=== PATIENT | female | born 1940 | race Caucasian/White ===

== ENCOUNTER 2020-10-01 14:29 | Emergency (ER) | payer OTHER, SELFPAY ==
--- NOTE | ~2020-10-01 | XR_ITS ---
EXAMINATION: XR chest 1V portable DATE: 10/01/2020 15:06 INDICATION: Chest tightness, shortness of breath and fever TECHNIQUE: frontal view of the chest was obtained. COMPARISON: None FINDINGS: Subtle regions of peripheral groundglass opacity in the right mid and left mid and lower lung zones. No pleural effusion or pneumothorax. The cardiomediastinal silhouette is normal. Moderate degenerativ e skeletal changes in the spine and bilateral shoulders. IMPRESSION: 1. A few subtle patchy groundglass opacities at the lateral aspect of the bilateral mid and lower brayan g zones which could represent pneumonia or atelectasis. Reviewed, dictated and finalized at location A. SS LIAISON IMPRESSION: 1. A few subtle patchy groundglass opacities at the lateral aspect of the bilat eral mid and lower lung zones which could represent pneumonia or atelectasis.
--- NOTE | 2020-10-01 14:49 | ECG_ITS ---
Measurements Intervals Kathleen Rate: 78 P: 51 NH: 137 QRS: -15 QRSD: 85 T: 12 QT: 409 QTc: 466 Interpretive Statements SINUS RHYTHM POSSIBLE LEFT ATRIAL ENLARGEMENT DELAYED PRECORDIAL R/S TRANSITION BASELINE ARTIFACT- II, III, AVF BORDERLINE ECG Electronically Signed On 10-01-2020 15:12:24 CONTINUOUS PROCESS MACHINE OPERATOR by Facundo Sam D.O.
[2020-10-01 14:53] VITALS: BP 124/102; PULSE 81; RESP 18; TEMP 35.9; O2SAT 95
[2020-10-01 15:13] LABS: Basophils Percent Auto 0.4 % (0.2-1.2); Eosinophils Absolute Auto 0.1 K/mm3 (0-0.3); Eosinophils Percent Auto 0.6 % (0-4.4); Hematocrit 34.4 % (37.0-47.0); Hemoglobin 11.3 g/dL (12.0-15.0); Immature Granulocyte Absolute 0.12 K/mm3 (0.00-0.031); Immature Granulocyte Percent A 1.5 % (0-0.5); Lymphocytes Absolute Auto 1.44 K/mm3 (0.9-3.2); Lymphocytes Percent Auto 18.4 % (18.3-44.2); Mean Corpuscular HGB Conc 32.8 g/dl (32-36); Mean Corpuscular Hemoglobin 30.4 pg (26-34); Mean Corpuscular Volume 92.5 fl (80-100); Mean Platelet Volume 10.9 fl (7.4-10.4); Monocytes Absolute Auto 0.8 K/mm3 (0.1-0.6); Monocytes Percent Auto 10.3 % (2.6-8.5); Neutrophils Absolute Auto 5.4 K/mm3 (1.3-6.7); Neutrophils Percent Auto 68.8 % (45.5-73.1); Platelet Count Result 285 k/mm3 (150-375); Red Blood Count 3.72 M/mm3 (4.2-5.4); Red Cell Distribution Width 13.2 % (11.5-14.5); White Blood Count 7.8 K/mm3 (4.5-10.0)
[2020-10-01 15:29] LABS: Potassium 3.9 mmol/L (3.4-5.0)
[2020-10-01 15:32] LABS: Anion Gap 10 mmol/L (8-16); Blood Urea Nitrogen 20 mg/dL (7-17); Calcium 7.6 mg/dL (8.4-10.2); Carbon Dioxide 20 mmol/L (22-30); Chloride 105 mmol/L (98-107); Estimated CRCL calculation 38 ml/min; Estimated Glomerular Filt Rate 43; Glucose 138 mg/dL (65-105); Sodium 135 mmol/L (137-145)
[2020-10-01 15:41] LABS: Troponin I 0.034 ng/mL (0.000-0.034)
--- NOTE | 2020-10-01 16:29 | ED.GENADULT ---
HPI - General Adult General Chief complaint: Shortness of Breath/Dyspnea Stated complaint: fever, low o2 levels Time Seen by Provider: 10/01/20 15:25 Source: patient History of Present Illness HPI narrative: Patient is a 80 y/o female complaining fever, cough and pleuritic chest pain for last 2 weeks. She states that her fever was up to 102. Her fever gets better with Tylenol. She had positive COVID test on 09/22. In addition, she states that she had left foot surgery 1 month ago and she was unable to have her cast removed in her orthopedic doctor's office because of recent COVID positivity. She would like to have her cast removed. Related Data Allergies Allergy/AdvReac Type Severity Reaction Status Date / Time No Known Allergies Allergy Mild Verified 11/28/10 10:58 Review of Systems Constitutional: Constitutional: Denies chills, Reports fever(s), Denies headache(s) and Denies weakness Eyes: Eyes: Denies blurry vision ENT: Denies headache(s) and Denies neck pain Cardiovascular: Cardiovascular: Reports chest pain and Reports dyspnea Respiratory: Respiratory: Reports cough and Reports dyspnea Gastrointestinal: Gastrointestinal: Denies abdominal pain, Denies diarrhea, Denies nausea and Denies vomiting Genitourinary: Genitourinary: Denies hematuria and Denies dysuria Musculoskeletal: Musculoskeletal: Denies back pain and Denies neck pain Neurologic: Denies headache(s) and Denies weakness Exam Const: General: no acute distress and well developed Orientation/consciousness: oriented to person, oriented to place, oriented to time and patient oriented x3 HENMT: Head: normocephalic Ears: external ears normal General nose exam: Normal external nose present Eyes: General: appearance normal, both eyes and all related structures Conjunctivae: conjunctivae normal Neck: Neck: normal visual inspection and full ROM Chest: Chest palpation & inspection: normal inspection of the chest and no tenderness Resp: Effort & Inspection: normal respiratory effort Auscultation: clear to auscultation bilaterally Cardio: Rate: regular rate Rhythm: regular rhythm GI: GI Palp: No abdominal tenderness and Yes Soft to palpation Skin: General skin exam: normal color and turgor normal Neuro: General: oriented to person, oriented to place, oriented to time and patient oriented x3 Cognition (Neuro): normal cognition Extrem: General: normal to inspection, full ROM and no pedal edema Left lower extremity: lower leg (cast in place) Psych: Appearance: grossly normal Mental Status: mental status grossly normal Affect: normal affect Course Consultations Consultation #1: Discussed with Miriam in Dr. Serge Oswald's (patient's ortho) office, she recommends removing cast. Date: 10/01/20 Time: 15:00 Vital Signs Vital signs: Vital Signs Temperature 35.9 C L 10/01/20 14:53 Pulse Rate 81 10/01/20 14:53 Respiratory Rate 18 10/01/20 14:53 Blood Pressure 124/102 H 10/01/20 14:53 Pulse Oximetry 95 10/01/20 14:53 Temperature 35.9 C L 10/01/20 14:53 Pulse Rate 90 10/01/20 17:30 Respiratory Rate 19 10/01/20 17:30 Blood Pressure 147/64 H 10/01/20 17:30 Pulse Oximetry 96 10/01/20 17:30 Procedures Cast Removal Cast #1: Date: 10/01/20 Reason for procedure: missed appointment and other (unable to go orthopedist's office due to COVID) Cut saw used: Yes Cast procedure: removal Post Removal Neuro Exam: intact Post Removal Vascular Exam: intact Patient Tolerated Procedure: well Additional Comments: left short leg cast removed Medical Decision Making Vital Signs Vital Signs: Vital Signs Temperature 35.9 C L 10/01/20 14:53 Pulse Rate 81 10/01/20 14:53 Respiratory Rate 18 10/01/20 14:53 Blood Pressure 124/102 H 10/01/20 14:53 Pulse Oximetry 95 10/01/20 14:53 Temperature 35.9 C L 10/01/20 14:53 Pulse Rate 90 10/01/20 17:30 Respiratory Rate 19 12
[2020-10-01 17:30] VITALS: BP 147/64; PULSE 90; RESP 19; O2SAT 96
== END 2020-10-01 18:55 | disposition home or self-care (01) ==
PROVIDERS: Emergency Provider Emergency Medicine
DX: U07.1 COVID-19 (principal); J12.89 Other viral pneumonia; Z47.89 Encounter for other orthopedic aftercare
CPT/HCPCS: 36415; 71045; 80048; 84484; 85025; 93005; 99284

== ENCOUNTER → 2021-06-01 13:29 | Outpatient (CLI) | payer OTHER, SELFPAY ==
--- NOTE | ~2021-06-01 | XR_ITS ---
XR shoulder RT min 2V DATE: 06/01/2021 14:35 INDICATION: Chronic right shoulder pain TECHNIQUE: 4 views COMPARISON: 09/25/2019 right shoulder FINDINGS: There is mild osteophyte is at the right glenohumeral joint. Diffuse osteopenia. No fracture or dislocation, periosteal reaction or bone destruction or abnormal soft tissue calcifica tion is evident. IMPRESSION: Mild osteoarthritis Reviewed, dictated and finalized at location B. IMPRESSION: Mild osteoarthritis
== END ==
PROVIDERS: Visit Provider Physician Assistant
DX: M19.011 Primary osteoarthritis, right shoulder (principal)
CPT/HCPCS: 73030

== ENCOUNTER 2022-11-23 15:01 | Emergency (ER) | payer OTHER, SELFPAY ==
--- NOTE | ~2022-11-23 | CT_ITS ---
EXAMINATION: CT cervical spine wo con DATE: 11/23/2022 16:00 INDICATION: Head injury. TECHNIQUE: Computed tomography (CT) of the cervical spine was performed without intravenous contrast. Automated exposure control and iterative reconstruction technique were employed. The dose-length pro duct was 487.07 mGy-cm. COMPARISON: CT cervical spine 10/28/2011 FINDINGS: There is 2 mm anterolisthesis of C7 on T1. Vertebral body heights are normal. There is mild ly decreased disc height at C2-C3, moderately decreased disc height at C3-C4, mildly decreased disc h eight at C4-C5, and severely decreased disc height at C5-C6 and C6-C7. The following disc levels are specifically discussed: C2-C3: There is mild bilateral uncovertebral joint osteoarthritis. There is severe bilateral facet peggy int osteoarthritis. There is no neural foraminal stenosis. There is mild central canal stenosis. C3-C4: There is severe bilateral uncovertebral joint osteoarthritis. There is severe bilateral facet joint osteoarthritis. There is moderate bilateral neural foraminal stenosis. There is mild central ca nal stenosis. C4-C5: There is moderate bilateral uncovertebral joint osteoarthritis. There is severe bilateral face t joint osteoarthritis. There is moderate right and mild left neural foraminal stenosis. There is mil d central canal stenosis. C5-C6: There is severe bilateral uncovertebral joint osteoarthritis. There is moderate right and mild left facet joint osteoarthritis. There is moderate right and mild left neural foraminal stenosis. Th ere is mild central canal stenosis. C6-C7: There is severe bilateral uncovertebral joint osteoarthritis. There is severe right and mild l eft facet joint osteoarthritis. There is mild bilateral neural foraminal stenosis. There is mild cent ral canal stenosis. C7-T1: There is no uncovertebral joint osteoarthritis. There is severe bilateral facet joint osteoart hritis. There is mild bilateral neural foraminal stenosis. There is no central canal stenosis. IMPRESSION: 1. No fracture. 2. Severe cervical spondylosis. Reviewed, dictated and finalized at location A. ERCIAL REAL ESTATE MANAGER
--- NOTE | ~2022-11-23 | CT_ITS ---
EXAMINATION: CT brain wo con DATE: 11/23/2022 15:58 INDICATION: Head injury. TECHNIQUE: Computed tomography (CT) of the head was performed without intravenous contrast. The mA wa s adjusted according to patient size. Iterative reconstruction technique was employed. The dose-lengt h product was 681.00 mGy-cm. COMPARISON: Head CT 10/28/2011 FINDINGS: There are scattered areas of low attenuation in the cerebral white matter. There is no intr acranial hemorrhage, acute infarction, or abnormal intracranial mass lesion. The ventricles are herlinda l in size. There are likely changes of ocular lens replacement surgeries. There is a frontal scalp he matoma. There is a small left mastoid effusion. IMPRESSION: 1. Moderate nonspecific cerebral white matter disease, which likely represents chronic small vessel i schemic disease. Reviewed, dictated and finalized at location A. MATIC PUNCH PRESS OPERATOR IMPRESSION: 1. Moderate nonspecific cerebral white matter disease, which likely represents chronic small vessel ischemic disease.
--- NOTE | 2022-11-23 15:23 | PC.NURSE ---
pt c/o right hip pain that radiates down her leg. states has been seen by her pmd and was advised to see chiropractor for several weeks then to check back. pt states today her leg gave out on her when she was in the garage bringing groceries in.
[2022-11-23 15:30] VITALS: BP 153/63; PULSE 53
--- NOTE | 2022-11-23 15:42 | ED_ITS ---
HPI - Head Injury General Chief complaint: Head Injury Stated complaint: fall-head injury Time Seen by Provider: 11/23/22 15:09 History of Present Illness HPI Narrative: Patient is an 82-year-old presenting after a fall. Patient states that she suffers from chronic lower back pain that goes into her right hip. States that she has been seeing her PCP and a chiropractor for this. States that she was in her garage when her hip hurts and then gave out. She fell to the ground striking her forehead. She did not lose consciousness. She has a large hematoma to her forehead so her family brought her in for evaluation. She is on daily aspirin but no anticoagulation. She denies neck or back pain. Denies headache, numbness or weakness, vision changes. No chest pain, abdominal pain, shortness of breath, nausea or vomiting. Related Data Allergies Allergy/AdvReac Type Severity Reaction Status Date / Time No Known Allergies Allergy Mild Verified 11/23/22 15:11 Review of Systems Review of Systems: All systems reviewed & are unremarkable except as noted in HPI and below Exam Narrative: GENERAL: Well-appearing, well-nourished, and in no acute distress. HEAD: Normocephalic, large hematoma center forehead EYES: PERRLA and EOMI. ENT: Nares clear, no rhinorrhea or epistaxis. Mucous membranes moist. NECK: Supple. No midline tenderness CHEST: Clear to auscultation. No respiratory distress. HEART: Regular rate and rhythm. No murmur heard. Normal peripheral pulses. ABDOMEN: Soft, nontender, nondistended, normal active bowel sounds. EXTREMITIES: Normal range of motion. No edema. SKIN: Warm, dry, no rash. NEURO: No focal deficits. Alert and oriented x3. PSYCH: Normal mood and affect. Course Vital Signs Vital signs: Vital Signs Pulse Rate 53 L 11/23/22 15:30 Blood Pressure 153/63 H 11/23/22 15:30 Pulse Rate 53 L 11/23/22 15:30 Blood Pressure 153/63 H 11/23/22 15:30 MDM - Head Injury MDM Narrative Medical decision making narrative: Patient is an 82-year-old female presenting after a fall. Patient is a bit hypertensive, otherwise vitals are within normal limits. Exam is remarkable for the above. She does have a large forehead hematoma. Exam is otherwise unremarkable. She is neurologically intact. CT head and C-spine are negative for acute abnormalities. Discussed appropriate supportive care as well as return precautions. Advised that she follow-up with her PCP. Patient discharged in stable condition. Differential Diagnosis Differential diagnosis: Likely epidural hematoma, closed head injury, subarac hnoid hematoma and subdural hematoma Critical Care Time Critical Care Time Critical Care Time: No Discharge Plan Discharge Clinical Impression: Closed head injury, Traumatic hematoma of forehead Patient Disposition: Home, Self-Care Condition: Stable Instructions: Antibiotic Form, Head Injury (ED) Additional Instructions: Please use Tylenol for pain control. You may ice the area for the next 1 to 2 days. Please follow-up closely with your primary care provider. If you develop suddenly worsening pain, numbness or weakness, vomiting, or other concerning symptoms arise, please return to the ER. Follow-up/Referrals: PHYSICIAN NOT ON STAFF,NONSTAFF [Primary Care Provider] -
== END 2022-11-23 17:45 | disposition home or self-care (01) ==
PROVIDERS: Emergency Provider Emergency Medicine
DX: S00.83XA Contusion of other part of head, initial encounter (principal); M54.50 Low back pain, unspecified; G89.29 Other chronic pain; W01.0XXA Fall on same level from slipping, tripping and stumbling without subsequent striking against object, initial encounter
CPT/HCPCS: 70450; 72125; 99284

== ENCOUNTER 2024-03-20 00:27 | Inpatient (IN) | payer OTHER, SELFPAY ==
[2024-03-20] VITALS (20 sets, daily range): BP systolic 102–164; BP diastolic 64–91; PULSE 54–105; RESP 16–23; TEMP 36.2–37.6; O2SAT 86–98
--- NOTE | 2024-03-20 | ECHO_ITS ---
Patient Info Name: Sayra Glass Age: 83 years : 1940 Gender: Female Ht: 65 in Wt: 151 lbs BSA: 1.78 m2 HR: 60 bpm BP: 138 / 79 mmHg Technical Quality: Good Exam Date: 03/20/2024 1:22 PM Exam Location: Echo Lab Patient Status: Inpatient Admit Date: 03/20/2024 Staff Ordering Physician: Facundo Sam DO Recycling Center Operator: Idalia Lion RDCS Attending Provider: Jabari Whalen MD Referring Physician: Flaco MERAZ; Exam Type: CA echo doppler color flow Study Info Indications - VENTRICULAR BIGGEMINY Complete two-dimensional, color flow and Doppler transthoracic echocardiogram is performed. Summary 1. Complete two-dimensional, color flow and Doppler transthoracic echocardiogram is performed. 2. Left ventricular chamber dimension is normal. 3. Left ventricular systolic function is normal, estimated at 60-65%. 4. D shape interventricular septum in both systole and diastole suggest both RV pressure and volume overload. 5. The left ventricular diastolic function is grade I diastolic dysfunction. 6. E/e' 9 is minimally elevated. 7. Right ventricular chamber dimension is severely enlarged. 8. Right ventricular systolic function is reduced and with abnormal TAPSE 1.5 cm. 9. Right atrial chamber dimension is moderately enlarged. 10. There is moderate aortic valve sclerosis. 11. There is mild to moderate aortic valve stenosis with a peak velocity of 184 cm/s, mean gradient of 8 mmHg, and aortic valve area of 1.5 cm2. 12. There is mild to moderate tricuspid valve regurgitation. 13. Severe pulmonary hypertension, estimated pulmonary arterial systolic pressure is 79 mmHg. Left Ventricle E/e' 9 is minimally elevated. D shape interventricular septum in both systole and diastole suggest both RV pressure and volume overload. Left ventricular chamber dimension is normal. Left ventricular systolic function is normal, estimated at 60-65%. The left ventricular diastolic function is grade I diastolic dysfunction. Right Ventricle Right ventricular systolic function is reduced and with abnormal TAPSE 1.5 cm. Right ventricular chamber dimension is severely enlarged. Left Atria Left atrial chamber dimension is normal. Right Atria Right atrial chamber dimension is moderately enlarged. Aortic Valve The aortic valve is trileaflet. There is moderate aortic valve sclerosis. There is mild to moderate aortic valve stenosis with a peak velocity of 184 cm/s, mean gradient of 8 mmHg, and aortic valve area of 1.5 cm2. There is no aortic valve regurgitation. Pulmonic Valve There is no pulmonic regurgitation. Mitral Valve There is no mitral valve stenosis. There is no mitral valve regurgitation. Tricuspid Valve There is mild to moderate tricuspid valve regurgitation. Severe pulmonary hypertension, estimated pulmonary arterial systolic pressure is 79 mmHg. Pericardium/Pleural There is no pericardial effusion. Inferior Vena Cava Normal inferior vena cava with >50% collapse upon inspiration consistent with normal right atrial pressure, 5 mmHg. Aorta The aortic root size at the sinus of Valsalva is normal. Left Ventricular Outflow Tract Name Value Normal LVOT 2D LVOT Diameter 2.0 cm LVOT Doppler LVOT Peak Gradient
--- NOTE | ~2024-03-20 | US_ITS ---
EXAMINATION: US renal BI DATE: 03/22/2024 15:48 INDICATION: Acute renal insufficiency TECHNIQUE: Multiple ultrasound grayscale images of the kidneys were obtained. COMPARISON: None. FINDINGS: The right kidney measures 10.0 x 4.2 x 4.5 cm. The left kidney measures 9.8 x 5.2 x 4.6 cm. The kidne ys demonstrate normal echogenicity. 1.1 cm anechoic cyst at the upper pole of the right kidney. There is no hydronephrosis in either kidney. No stones identified. The bladder is normal. Incidentally no diego are several echogenic and shadowing gallstones within the otherwise normal-appearing gallbladder. IMPRESSION: 1. 1.1 cm right renal cyst. Otherwise normal kidneys without hydronephrosis. 2. Cholelithiasis. Reviewed, dictated and finalized at location A.
--- NOTE | ~2024-03-20 | CT_ITS ---
CT head without contrast Indication: Altered mental status COMPARISON: 11/23/2022 Technique: Serial scans were obtained through the brain without the administration of contrast. Dose reduction technique was used on this scan by utilizing automated exposure control and iterative recon struction technique. The dose-length product (DLP) was 605.33 mGy-cm. Findings: There is no evidence of intracranial hemorrhage, mass lesion, or acute infarct. The ventri cles and subarachnoid spaces are dilated, consistent with mild to moderate atrophy. Low attenuation regions are seen within the periventricular white matter bilaterally, likely representing changes fro m chronic microvascular ischemic disease. There is no evidence of edema, mass effect or midline shif t. The visualized paranasal sinuses and mastoid air cells are clear. Impression: No intracranial hemorrhage, mass, or acute infarct. Atrophy and chronic white matter changes, as above. Reviewed, dictated and finalized at location . Impression: No intracranial hemorrhage, mass, or acute infarct. Atrophy and chronic white matter changes, as above.
--- NOTE | 2024-03-20 00:35 | ECG_ITS ---
SEE SCANNED COPY FOR CONFIRMED REPORT MTDD
[2024-03-20 00:43] LABS: Basophils Absolute Auto 0.1 K/mm3 (0.0-0.1); Basophils Percent Auto 0.7 % (0.2-1.2); Eosinophils Absolute Auto 0.4 K/mm3 (0-0.3); Eosinophils Percent Auto 3.5 % (0-4.4); Hematocrit 43.1 % (37.0-47.0); Hemoglobin 13.8 g/dL (12.0-15.0); Immature Granulocyte Absolute 0.05 K/mm3 (0.00-0.031); Immature Granulocyte Percent A 0.4 % (0-0.5); Lymphocytes Percent Auto 5.8 % (18.3-44.2); Mean Corpuscular Hemoglobin 30.5 pg (26-34); Mean Corpuscular Volume 95.4 fl (80-100); Mean Platelet Volume 11.2 fl (7.4-10.4); Monocytes Absolute Auto 1.2 K/mm3 (0.1-0.6); Monocytes Percent Auto 9.8 % (2.6-8.5); Neutrophils Absolute Auto 9.6 K/mm3 (1.3-6.7); Neutrophils Percent Auto 79.8 % (45.5-73.1); Platelet Count Result 215 k/mm3 (150-375); Red Blood Count 4.52 M/mm3 (4.2-5.4); White Blood Count 12.1 K/mm3 (4.5-10.0)
[2024-03-20 00:52] LABS: Lactic Acid Reflex 1.6 mmol/L (0.7-2.0)
[2024-03-20 00:53] LABS: Alanine Aminotransferase 16 U/L (6-35); Albumin Level 4.3 g/dL (3.5-5.1); Alkaline Phosphatase 65 U/L (38-126); Anion Gap 7 mmol/L (4-12); Aspartate Amino Transferase 29 U/L (14-36); Bilirubin,Total 0.9 mg/dL (0.2-1.3); Blood Urea Nitrogen 36 mg/dL (7-17); Calcium 9.9 mg/dL (8.4-10.2); Carbon Dioxide 24 mmol/L (22-30); Chloride 103 mmol/L (98-107); Estimated Glomerular Filt Rate 60; Glucose 227 mg/dL (65-110); INR 1.1; Potassium 4.5 mmol/L (3.4-5.0); Prothrombin Time 14.9 Seconds (11.1-14.7); Sodium 134 mmol/L (137-145)
[2024-03-20 00:54] LABS: Partial Thromboplastin Time 36.5 Seconds (22.3-36.8)
[2024-03-20 01:24] LABS: Appearance Urine Clear (Clear); Bacteria Urine 4+ /hpf; Bilirubin Urine Negative (Negative); Blood Urine Non-Hemolyzed Trace (Negative); Color Urine Yellow (Yellow); Glucose Urine UA Negative (Negative); Ketones Urine Negative (Negative); Leukocyte Esterase Ur Negative LEU/UL (Negative); Need Manual Microscopic Reviewed; Nitrate Urine Positive (Negative); Protein Urine 3+ mg/dL (Negative); RBC Urine 0-2 /hpf (0-2); Specific Grav Ur 1.022 (1.001-1.035); Squamous Epithelial Cell Urine None Seen /hpf (Few); Urobilinogen Urine 0.2 mg/dL (<2.0); pH Urine 6.5 (5.0-9.0)
[2024-03-20 01:29] LABS: Add Urine Microscopic? YES
--- NOTE | 2024-03-20 01:53 | ED.AMS ---
HPI - Altered Mental Status General Chief Complaint: Altered Mental Status Stated Complaint: AMS, POSSIBLE UTI Time Seen by Provider: 03/20/24 01:17 History of Present Illness HPI narrative: Patient is an 83-year-old female who presents in urgency department this morning via EMS from home due to altered mental status. EMS who brought the patient in happens to be the patient's grand son and noticed that she was more confused than usual. Patient is normally alert and oriented x3 and today she was only alert and oriented x1. Patient's son did inform us of that patient normally presents this way when she has urinary tract infection as patient does get them frequently. Patient is currently answering my questions appropriately, is alert and oriented to person, place, but not time. She is able to tell me that Herbert is our current president. Otherwise patient denies any additional symptoms or concerns at this time. Related Data Allergies Allergy/AdvReac Type Severity Reaction Status Date / Time No Known Allergies Allergy Mild Verified 11/23/22 15:11 Review of Systems Review of Systems: All systems are reviewed and are negative unless stated otherwise in the HPI. [facility] Past Medical History Medical History Degenerative lumbar disc Insomnia Exam Narrative: General: Awake, afebrile, in no acute distress. HEENT: PERRL, no rhinorrhea, no post nasal drip, oropharynx clear. Neck: Trachea midline, no JVD, no lymphadenopathy. Cardiovascular: Regular rate and rhythm, no murmurs, rubs or gallops, no peripheral edema. Respiratory: Clear to auscultation bilaterally, no tachypnea, no wheezing, no rhonchi, no rubs, no respiratory distress. Abdomen: Soft, nontender, nondistended, no rebound, no guarding, no peritoneal signs. Musculoskeletal: No joint swelling or deformity, normal muscle tone. Skin: No rashes or petechia, no signs of infection. Neurological: Alert and oriented to person and place. Follows all commands. No focal deficits, speech is clear and fluent. Course Vital Signs Vital signs: Vital Signs Temperature 98.6 F 03/20/24 00:28 Pulse Rate 100 03/20/24 00:28 Respiratory Rate 23 H 03/20/24 00:28 Blood Pressure 164/91 H 03/20/24 00:28 Pulse Oximetry 93 03/20/24 00:28 Oxygen Delivery Nasal Cannula 03/20/24 00:28 Oxygen Flow Rate 2 03/20/24 00:28 Temperature 98.6 F 03/20/24 00:43 Pulse Rate 93 03/20/24 03:20 Respiratory Rate 17 03/20/24 03:20 Blood Pressure 145/69 H 03/20/24 02:48 Pulse Oximetry 98 03/20/24 03:20 Oxygen Delivery Nasal Cannula 03/20/24 01:09 Oxygen Flow Rate 2 03/20/24 01:09 MDM - Altered Mental Status MDM Narrative Medical decision making narrative: The patient was evaluated by myself in the emergency department. History is obtained from patient and EMS and physical exam was performed. External medical records were reviewed at this time. IV was established and pertinent tests were ordered. EKG was obtained which revealed sinus rhythm at a rate of 99 beats per minute with frequent PVCs in a ventricular bigeminy pattern. No ST changes, T wave inversions or evidence of acute ischemia. EKG was independently interpreted by me and is currently pending official cardiology read. Laboratory results obtained revealing a white blood cell count of 12.1, otherwise unremarkable. Urinalysis revealed urinary tract infection. Patient was administered 2 g of IV Rocephin at this time. Imaging studies obtained included CT brain without IV contrast which was independently interpreted by me revealing no acute process, which is pending final radiology interpretation. Differential diagnosis considerations include delirium secondary to infectious process such as pneumonia and urinary tract infection. Additional differential include cerebrovascular accident. Comorbidities impacting this visit include none. I have
[2024-03-20] MEDS: cefTRIAXone 2 GM/NS 100 ML 2 GM/100 ML BAG IVPB ×2 (02:00→20:00)
[2024-03-20] MEDS: ONDANSETRON INJ 4 MG/2 ML VIAL IV PUSH (02:10)
[2024-03-20] MEDS: MORPHINE SULFATE (*CRX) 2 MG/ML INJ IV PUSH ×2 (02:10→05:01)
[2024-03-20 02:13] LABS: Troponin I 0.026 ng/mL (0.000-0.034)
[2024-03-20 02:51] LABS: Influenza A QL RT-PCR Negative (Negative); Influenza B QL RT-PCR Negative (Negative); RSV RNA, RT-PCR Negative (Negative); SARS-CoV-2 RNA PCR Negative (Negative)
--- NOTE | 2024-03-20 06:54 | ADMGEN ---
This patient, Sayra Glass, was admitted to Medical Room 255-01. Patient/family oriented to hospital policies and general routines including ID bracelet, bed and alarms, visiting hours, pain management, procedures, bathroom and other care routines, personal items, smoking policy, room service/diet, and visiting hours. Information on how to activate the Rapid Response Team has been discussed. Patient/Family are encouraged to report perceived risks to care and to ask questions if they do not understand what they are told or what they should do.
--- NOTE | 2024-03-20 07:26 | PM.IMHP ---
H&P: HPI History of Present Illness Date/Time: 03/20/24 07:26 Chief Complaint: AMS Narrative: Patient is an 83-year-old female who presented to the emergency department with complaints of altered mental status her grandson. As stated in the emergency department medical record grandbrian states patient is normally alert and oriented x3 however today she was only alert to self. Patient's son states she typically gets it mental status when she is developing a urinary tract infection. Patient does have past medical history diabetes, HLD, insomnia and DJD. Initial findings in the emergency department showed a UA nitrate positive with bacteremia, WBC of 12.1, glucose of 227 otherwise all other labs unremarkable. EKG did show ventricular bigeminy resumed patient's beta-todd on admission and the CT head with no acute issues. Upon assessment this am patient was alert and oriented, knew name, location, , and the president stated she remembers coming to the ED last night. 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 Patient did report urinary frequency and burning, denied fever, chills, chest pain, SOB, or dizziness. Review of Systems Review of Systems: All systems reviewed & are unremarkable except as noted in HPI and below PMFSH Past Medical History Medical History (Updated 03/20/24 @ 11:12 by Jennifer Marquez APRN) Degenerative lumbar disc Diabetes Insomnia Ventricular bigeminy Family History Family History Sibling Dementia Father Acute myocardial infarction Mother Diabetes mellitus Social History Social History Smoking status: Never smoker Alcohol intake: never Substance use: never Do You Feel Safe in your Home?: Yes Lack of Transportation: No Lack of Food: Never True Current Housing: I Have Housing Concerned About Future Housing: No Difficulty Paying Gas/Electric Bills: No Difficulty Paying for Meds: No Currently Unemployed: No Education: High School Diploma/GED Difficulty w/ Childcare or Family Care: No Spiritual care concerns: No Meds Home Medications and Allergies Home Medications Medication Instructions Recorded Confirmed Type clonazepam 1 mg tablet 1 mg PO QHS #30 tabs 08/29/23 03/20/24 Rx apixaban 5 mg tablet (Eliquis) 5 mg PO BID 03/20/24 03/20/24 History duloxetine 60 mg capsule,delayed 60 mg PO DAILY 03/20/24 03/20/24 History release fexofenadine 30 mg tablet 60 mg PO DAILY 03/20/24 03/20/24 History leflunomide 20 mg tablet 20 mg PO DAILY 03/20/24 03/20/24 History losartan 100 mg tablet 100 mg PO DAILY 03/20/24 03/20/24 History metformin 500 mg tablet 500 mg PO BID 03/20/24 03/20/24 History metoprolol succinate 25 mg 25 mg PO HS 03/20/24 03/20/24 History tablet,extended release 24 hr oxycodone-acetaminophen 10 mg-325 0.5 tablet PO Q6H PRN Pain (Scale 03/20/24 03/20/24 History mg tablet Score 4-6) pravastatin 40 mg tablet 40 mg PO DAILY 03/20/24 03/20/24 History trazodone 100 mg tablet 200 mg PO HS 03/20/24 03/20/24 History Allergies Allergy/AdvReac Type Severity Reaction Status Date / Time No Known Allergies Allergy Mild Verified 11/23/22 15:11 Vital Signs Vital Signs - 24 hr 03/20/24 00:28 03/20/24 00:42 03/20/24 00:43 Temperature 98.6 F 98.6 F Pulse Rate 100 102 H 100 Respiratory Rate 23 H 20 Blood Pressure 164/91 H 164/91 H Pulse Oximetry 93 94 Oxygen Delivery Nasal Cannula Oxygen Flow Rate 2 03/20/24 01:08 03/20/24 01:09 03/20/24 02:48 Temperature Pulse Rate 98 Respiratory Rate 21 H Blood Pressure 145/69 H Pulse Oximetry 95 95 95 Oxygen Delivery Nasal Cannula Nasal Cannula Oxygen Flow Rate 2 2 03/20/24 03:20 03/20/24 05:35 03/20/24 07:01 Temperature 97.
--- NOTE | 2024-03-20 07:42 | PM.CNCAR ---
Assessment and Plan Assessment and plan (1) Ventricular bigeminy: Code(s): I49.8 - Other specified cardiac arrhythmias Status: Acute Assessment and Plan: Benign. On Metoprolol. Check Mag and TSH. Obtain echo. (2) Urinary tract infection: Code(s): N39.0 - Urinary tract infection, site not specified Status: Acute Assessment and Plan: On antibiotics. Followed by hospitalist. (3) Hypertension: Code(s): I10 - Essential (primary) hypertension Status: Acute Assessment and Plan: Stable. (4) Dyslipidemia: Code(s): E78.5 - Hyperlipidemia, unspecified Status: Acute Assessment and Plan: On Pravastatin. History of Present Illness History of Present Illness Consult date/time: 03/20/24 07:42 Reason For Visit: Delirium,UTI,Ventricular Bigeminy Narrative: 83 yr old presents to ER with mental status changes. She has a history of DM, hypertension, dyslipidemia, frequent UTI. She is alert and oriented to name, place but not year right now. Reports she has chills. States she has been having right sided chest pain and was told it was chondritis . She lives alone and able to walk in and around her house only due to [place]. Denies orthopnea, PND, edema, dizziness, palpitations. Review of Systems Review of Systems: All systems reviewed & are unremarkable except as noted in HPI and below Constitutional: Constitutional: Reports as per HPI and Reports chills Cardiovascular: Cardiovascular: Reports as per HPI, Reports chest pain and Denies irregular heart rhythm Respiratory: Respiratory: Reports as per HPI, Denies dyspnea and Reports dyspnea on exertion Gastrointestinal: Gastrointestinal: Reports as per HPI and Denies abdominal pain Genitourinary: Genitourinary: Reports as per HPI Musculoskeletal: Musculoskeletal: Reports as per HPI Neurologic: Reports as per HPI, Reports confusion, Denies dizziness and Denies syncope [facility] Past Medical History Medical History (Updated 03/20/24 @ 07:45 by Facundo Sam DO) Degenerative lumbar disc Diabetes Insomnia Ventricular bigeminy Family History Family History Sibling Dementia Father Acute myocardial infarction Mother Diabetes mellitus Social History Social History Smoking status: Never smoker Alcohol intake: never Substance use: never Do You Feel Safe in your Home?: Yes Lack of Transportation: No Lack of Food: Never True Current Housing: I Have Housing Concerned About Future Housing: No Difficulty Paying Gas/Electric Bills: No Difficulty Paying for Meds: No Currently Unemployed: No Education: High School Diploma/GED Difficulty w/ Childcare or Family Care: No Spiritual care concerns: No Meds Home Medications and Allergies Home Medications Medication Instructions Recorded Confirmed Type clonazepam 1 mg tablet 1 mg PO QHS #30 tabs 08/29/23 03/20/24 Rx apixaban 5 mg tablet (Eliquis) 5 mg PO BID 03/20/24 03/20/24 History duloxetine 60 mg capsule,delayed 60 mg PO DAILY 03/20/24 03/20/24 History release fexofenadine 30 mg tablet 60 mg PO DAILY 03/20/24 03/20/24 History leflunomide 20 mg tablet 20 mg PO DAILY 03/20/24 03/20/24 History losartan 100 mg tablet 100 mg PO DAILY 03/20/24 03/20/24 History metformin 500 mg tablet 500 mg PO BID 03/20/24 03/20/24 History metoprolol succinate 25 mg 25 mg PO HS 03/20/24 03/20/24 History tablet,extended release 24 hr oxycodone-acetaminophen 10 mg-325 0.5 tablet PO Q6H PRN Pain (Scale 03/20/24 03/20/24 History mg tablet Score 4-6) pravastatin 40 mg tablet 40 mg PO DAILY 03/20/24 03/20/24 History trazodone 100 mg tablet 200 mg PO HS 03/20/24 03/20/24 History Allergies Allergy/AdvReac Type Severity Reaction Status Date / Time No Known Allergies Allergy Mild Verified 11/23/22 15:11 Vital Signs Vital
[2024-03-20 08:02] LABS: Magnesium 1.7 mg/dL (1.6-2.3)
[2024-03-20 08:08] LABS: Glucose Point of Care 148 mg/dl (65-105)
[2024-03-20] MEDS: LEFLUNOMIDE 20 MG TABLET PO (09:12)
[2024-03-20] MEDS: PANTOPRAZOLE 40 MG TABLET PO (09:12)
[2024-03-20] MEDS: LOSARTAN POTASSIUM 100 MG TABLET PO (09:12)
[2024-03-20] MEDS: PRAVASTATIN SODIUM 20 MG TABLET 40 MG PO (09:12)
[2024-03-20] MEDS: DULoxetine HCL 60 MG CAPSULE.DR PO (09:12)
[2024-03-20] MEDS: APIXABAN 5 MG TABLET PO ×2 (09:12→19:59)
[2024-03-20] MEDS: oxyCODONE/ACETAMINOPHEN (*CRX) 10-325 MG TABLET 0.5 TAB PO ×2 (09:12→17:44)
[2024-03-20 11:52] LABS: Glucose Point of Care 149 mg/dl (65-105)
[2024-03-20 16:47] LABS: Glucose Point of Care 148 mg/dl (65-105)
[2024-03-20] MEDS: METOPROLOL SUCCINATE EXT REL 25 MG TABCR PO (19:59)
[2024-03-20] MEDS: traZODone HCL 50 MG TABLET 200 MG PO (19:59)
[2024-03-20] MEDS: clonazePAM (*CRX) 0.5 MG TABLET 1 MG PO (19:59)
[2024-03-20] MEDS: LORATADINE 10 MG TABLET PO (20:00)
[2024-03-20] MEDS: clonazePAM (*CRX) 0.5 MG TABLET PO (20:00)
[2024-03-20 20:28] LABS: Glucose Point of Care 127 mg/dl (65-105)
[2024-03-21] VITALS (11 sets, daily range): BP systolic 98–136; BP diastolic 49–85; PULSE 71–106; RESP 16–18; TEMP 36.4–36.7; O2SAT 91–98
[2024-03-21] MEDS: oxyCODONE/ACETAMINOPHEN (*CRX) 10-325 MG TABLET 0.5 TAB PO ×3 (04:56→19:45)
[2024-03-21 05:21] LABS: Hematocrit 39.7 % (37.0-47.0); Hemoglobin 12.4 g/dL (12.0-15.0); Mean Corpuscular HGB Conc 31.2 g/dl (32-36); Mean Corpuscular Volume 96.1 fl (80-100); Mean Platelet Volume 11.9 fl (7.4-10.4); Platelet Count Result 178 k/mm3 (150-375); Red Blood Count 4.13 M/mm3 (4.2-5.4); Red Cell Distribution Width 15.2 % (11.5-14.5); White Blood Count 8.2 K/mm3 (4.5-10.0)
[2024-03-21 05:34] LABS: Alanine Aminotransferase 14 U/L (6-35); Albumin Level 3.7 g/dL (3.5-5.1); Alkaline Phosphatase 55 U/L (38-126); Anion Gap 7 mmol/L (4-12); Aspartate Amino Transferase 25 U/L (14-36); Bilirubin,Total 0.8 mg/dL (0.2-1.3); Blood Urea Nitrogen 33 mg/dL (7-17); Calcium 8.8 mg/dL (8.4-10.2); Carbon Dioxide 23 mmol/L (22-30); Chloride 107 mmol/L (98-107); Estimated Glomerular Filt Rate 43; Glucose 133 mg/dL (65-110); Potassium 4.3 mmol/L (3.4-5.0); Sodium 137 mmol/L (137-145)
--- NOTE | 2024-03-21 07:53 | PM.PNCARD ---
Progress Note: A&P Assessment and Plan (1) Ventricular bigeminy: Code(s): I49.8 - Other specified cardiac arrhythmias Status: Acute Assessment and Plan: Benign. On Metoprolol. Normal Mag and TSH. 03/20/24 Echo: EF 60-65%, D shape ventricular septum s/o RV pressure and volume overload, grade I diastolic dysfunction (E/e' 9), severe RVE/hypokinesis, mod SY, mild-mod (HUY 1.5 cm2), mild-mod TR, RVSP 79 s/o severe pulm hypertension. (2) Urinary tract infection: Code(s): N39.0 - Urinary tract infection, site not specified Status: Acute Assessment and Plan: On antibiotics. Followed by hospitalist. (3) Hypertension: Code(s): I10 - Essential (primary) hypertension Status: Acute Assessment and Plan: Stable. (4) Dyslipidemia: Code(s): E78.5 - Hyperlipidemia, unspecified Status: Acute Assessment and Plan: On Pravastatin. (5) Pulmonary hypertension: Code(s): I27.20 - Pulmonary hypertension, unspecified Status: Acute Assessment and Plan: Likely due to untreated HUSSAIN that was followed by PCP. Will need outpatient assessment. (6) Aortic stenosis: Code(s): I35.0 - Nonrheumatic aortic (valve) stenosis Status: Acute Assessment and Plan: Stable. Subjective Date/time seen: 03/21/24 07:53 Interval history: Denies chest pain or sob. Reports she has HUSSAIN but stopped using CPAP and oxygen for it for awhile. Exam Const: General: cooperative, healthy appearing, comfortable and confusion Orientation/consciousness: oriented to person, oriented to place, No oriented to time and confusion Resp: Auscultation: clear to auscultation bilaterally, no crackles, no rales, no rhonchi and no wheezes Cardio: Rate: regular rate Rhythm: regular rhythm Heart sounds: no murmurs Peripheral pulses: dorsalis pedis present Neuro: General: oriented to person, oriented to place, No oriented to time and confusion Extrem: Right lower extremity: no edema Left lower extremity: no edema Objective Data Vital Signs Vital Signs: Vital Signs - 24 hr 03/20/24 09:30 03/20/24 09:15 03/20/24 08:00 Temperature 99.6 F Pulse Rate 54 L 105 H Respiratory Rate 18 Blood Pressure 138/79 Pulse Oximetry 95 95 Oxygen Delivery Nasal Cannula Oxygen Flow Rate 2 03/20/24 12:00 03/20/24 14:00 03/20/24 18:00 Temperature 98.9 F Pulse Rate 94 89 105 H Respiratory Rate 20 Blood Pressure 140/78 Pulse Oximetry 93 Oxygen Delivery Oxygen Flow Rate 03/20/24 19:59 03/20/24 20:06 03/20/24 20:00 Temperature 97.6 F Pulse Rate 97 88 Respiratory Rate 17 Blood Pressure 146/82 H Pulse Oximetry 93 94 Oxygen Delivery Nasal Cannula Oxygen Flow Rate 3 03/20/24 21:09 03/20/24 21:33 03/21/24 00:00 Temperature Pulse Rate 92 80 Respiratory Rate Blood Pressure Pulse Oximetry 94 Oxygen Delivery Nasal Cannula Oxygen Flow Rate 3 03/21/24 04:00 03/21/24 05:05 Temperature 98.0 F Pulse Rate 100 106 H Respiratory Rate 17 Blood Pressure 109/68 Pulse Oximetry 95 Oxygen Delivery Oxygen Flow Rate Intake/Output Intake/Output: Intake & Output 03/18/24 03/19/24 03/20/24 03/21/24 23:59 23:59 23:59 23:59 Intake Total 910 50 Balance 910 50 Meds/Results Medications: Active Medications Generic Name Dose Route Start Last Admin Trade Name Freq PRN Reason Stop Dose Admin Apixaban 5 mg 03/20/24 09:00 03/20/24 19:59 Apixaban 5 Mg Tablet PO 5 mg Q12HR ANAHI Administration Clonazepam 1 mg 03/20/24 21:00 03/20/24 19:59 Clonazepam (*Crx) 0.5 Mg Tablet PO 1 mg QHS ANAHI Administration Clonazepam 0.5 mg 03/20/24 07:29 03/20/24 20:00 Clonazepam (*Crx) 0.5 Mg Tablet PO 0.5 mg QHS PRN Administration Insomnia Dextrose 12.5 gm 03/20/24 07:21 Dextrose 50% 25 Gm/50 Ml Syringe IV PUSH PRN PRN Hypoglycemia Protocol Duloxetine HCl 60 m
[2024-03-21 08:01] LABS: Glucose Point of Care 120 mg/dl (65-105)
--- NOTE | 2024-03-21 08:32 | P.PNIM_ITS ---
Progress Note: A&P Assessment and Plan (1) Urinary tract infection: Code(s): N39.0 - Urinary tract infection, site not specified Status: Acute (2) Ventricular bigeminy: Code(s): I49.8 - Other specified cardiac arrhythmias Status: Acute (3) Insomnia: Code(s): G47.00 - Insomnia, unspecified Status: Acute (4) Degenerative lumbar disc: Code(s): M51.36 - Other intervertebral disc degeneration, lumbar region Status: Acute (5) Acute metabolic encephalopathy: Code(s): G93.41 - Metabolic encephalopathy Status: Acute (6) Diabetes: Code(s): E11.9 - Type 2 diabetes mellitus without complications Status: Acute (7) Chronic hypoxic respiratory failure, on home oxygen therapy: Code(s): J96.11 - Chronic respiratory failure with hypoxia; Z99.81 - Dependence on supplemental oxygen Status: Acute Plan Metabolic encephalopathy secondary to UTI * CT head no acute issues * UA Nitrate + with bacteria * ceftriaxone 2g daily pending cultures * WBC improved to 8.2 Ventricular bigeminy * Resumed BB * Cardiology consulted/Benign Chronic respiratory failure with hypoxia * Secondary to Long COVID in 2019 * on supplemental oxygen on home 3L [place] * will need outpt f/u with sleep medicine * - will order CPAP here Diabetes * Accu-Cheks a.c. HS * sliding scale insulin * hold oral diabetic medications * Hemoglobin A1c goal * Diabetic diet * Optimize Gabe inhibitors and statins. * Watch for hypoglycemia/hypoglycemic protocol ordered Insomnia * Resumed clonazepam and trazodone HX HLD: Resumed Statin Code status: Full code per patient DVT prophylaxis: Eliquis Stress ulcer prophylaxis: Protonix 40 daily PT/OT notes: PT/OT Pending Disposition: Patient admitted with acute metabolic encephalopathy secondary to urinary tract infection, UA nitrate positive with bacteriuria and urinary complaints. Patient was started on IV Rocephin 2 g with mental improvement alert and oriented x3. Patient does have chronic respiratory failure secondary to long COVID on 3 L home oxygen. Rehab upon discharge Time Spent With Patient Time with patient: 15 - 25 minutes Subjective Date/time seen: 03/21/24 08:32 Interval history: 03/21-denies chest pain. ECHO 03/20- ?EF 60-65%. will need outpt f/u for HUSSAIN- stopped using CPAP and oxygen for it for awhile. on metoprolol for arrhythmia. normal mg, tsh. Will order CPAP at night here. she is up in the chair- alert, oriented to self and place. Pleasant, O2 per ns. Review of Systems Review of Systems: All systems reviewed & are unremarkable except as noted in HPI and below Exam Narrative: Physical Exam: * GENERAL: Alert and oriented x 3. Some intermittent confusion No acute distress. * EYES: EOMI. No scleral icterus. PERRLA. * HEENT: Moist mucous membranes. * LUNGS: Clear to auscultation bilaterally. No accessory muscle use. * CARDIOVASCULAR: Bigeminy. No murmur. No JVD. S1-S2 * ABDOMEN: Soft, mild tenderness and non-distended. No palpable masses. * EXTREMITIES: No edema. Non-tender * SKIN: No rashes or lesions. Skin warm, dry. * NEUROLOGIC: No focal neurological deficits. CN II-XII grossly intact * PSYCHIATRIC: Appropriate mood and affect. Good judgement and insight. No visual or auditory hallucinations. No suicidal or homicidal ideation. Objective Data Vital Signs Vital Signs:
--- NOTE | 2024-03-21 08:32 | PM.IMPN ---
Progress Note: A&P Assessment and Plan (1) Urinary tract infection: Code(s): N39.0 - Urinary tract infection, site not specified Status: Acute (2) Ventricular bigeminy: Code(s): I49.8 - Other specified cardiac arrhythmias Status: Acute (3) Insomnia: Code(s): G47.00 - Insomnia, unspecified Status: Acute (4) Degenerative lumbar disc: Code(s): M51.36 - Other intervertebral disc degeneration, lumbar region Status: Acute (5) Acute metabolic encephalopathy: Code(s): G93.41 - Metabolic encephalopathy Status: Acute (6) Diabetes: Code(s): E11.9 - Type 2 diabetes mellitus without complications Status: Acute (7) Chronic hypoxic respiratory failure, on home oxygen therapy: Code(s): J96.11 - Chronic respiratory failure with hypoxia; Z99.81 - Dependence on supplemental oxygen Status: Acute Plan Metabolic encephalopathy secondary to UTI CT head no acute issues UA Nitrate + with bacteria ceftriaxone 2g daily pending cultures WBC improved to 8.2 Ventricular bigeminy Resumed BB Cardiology consulted/Benign Chronic respiratory failure with hypoxia Secondary to Long COVID in 2019 on supplemental oxygen on home 3L [place] will need outpt f/u with sleep medicine - will order CPAP here Diabetes Accu-Cheks a.c. HS sliding scale insulin hold oral diabetic medications Hemoglobin A1c goal Diabetic diet Optimize Gabe inhibitors and statins. Watch for hypoglycemia/hypoglycemic protocol ordered Insomnia Resumed clonazepam and trazodone HX HLD: Resumed Statin Code status: Full code per patient DVT prophylaxis: Eliquis Stress ulcer prophylaxis: Protonix 40 daily PT/OT notes: PT/OT Pending Disposition: Patient admitted with acute metabolic encephalopathy secondary to urinary tract infection, UA nitrate positive with bacteriuria and urinary complaints. Patient was started on IV Rocephin 2 g with mental improvement alert and oriented x3. Patient does have chronic respiratory failure secondary to long COVID on 3 L home oxygen. Rehab upon discharge Time Spent With Patient Time with patient: 15 - 25 minutes Subjective Date/time seen: 03/21/24 08:32 Interval history: 03/21-denies chest pain. ECHO 03/20- ?EF 60-65%. will need outpt f/u for HUSSAIN- stopped using CPAP and oxygen for it for awhile. on metoprolol for arrhythmia. normal mg, tsh. Will order CPAP at night here. she is up in the chair- alert, oriented to self and place. Pleasant, O2 per ns. Review of Systems Review of Systems: All systems reviewed & are unremarkable except as noted in HPI and below Exam Narrative: Physical Exam: GENERAL: Alert and oriented x 3. Some intermittent confusion No acute distress. EYES: EOMI. No scleral icterus. PERRLA. HEENT: Moist mucous membranes. LUNGS: Clear to auscultation bilaterally. No accessory muscle use. CARDIOVASCULAR: Bigeminy. No murmur. No JVD. S1-S2 ABDOMEN: Soft, mild tenderness and non-distended. No palpable masses. EXTREMITIES: No edema. Non-tender SKIN: No rashes or lesions. Skin warm, dry. NEUROLOGIC: No focal neurological deficits. CN II-XII grossly intact PSYCHIATRIC: Appropriate mood and affect. Good judgement and insight. No visual or auditory hallucinations. No suicidal or homicidal ideation. Objective Data Vital Signs Vital Signs: Vital Signs - 24 hr 03/20/24 09:30 03/20/24 09:15 03/20/24 12:00 Temperature 99.6 F Pulse Rate 54 L 94 Respiratory Rate 18 Blood Pressure 138/79 Pulse Oximetry 95 95 Oxygen Delivery Nasal Cannula Oxygen Flow Rate 2 03/20/24 14:00 03/20/24 18:00 03/20/24 19:59 Temperature 98.9 F Pulse Rate 89 105 H 97 Respiratory Rate 20 Blood Pressure 140/78 Pulse Oximetry 93 Oxygen Delivery Oxygen Flow Rate 03/20/24 20:06 03/20/24 20:00 03/20/24 21:09 Temperature 97.6 F Pulse Rate 88 92 Respiratory Rat
[2024-03-21] MEDS: APIXABAN 5 MG TABLET PO ×2 (08:42→19:44)
[2024-03-21] MEDS: LEFLUNOMIDE 20 MG TABLET PO (08:42)
[2024-03-21] MEDS: PANTOPRAZOLE 40 MG TABLET PO (08:42)
[2024-03-21] MEDS: DULoxetine HCL 60 MG CAPSULE.DR PO (08:42)
[2024-03-21] MEDS: PRAVASTATIN SODIUM 20 MG TABLET 40 MG PO (08:43)
[2024-03-21] MEDS: LOSARTAN POTASSIUM 100 MG TABLET PO (08:43)
[2024-03-21 11:53] LABS: Glucose Point of Care 149 mg/dl (65-105)
[2024-03-21 16:57] LABS: Glucose Point of Care 146 mg/dl (65-105)
[2024-03-21] MEDS: METOPROLOL SUCCINATE EXT REL 25 MG TABCR PO (19:44)
[2024-03-21] MEDS: cefTRIAXone 2 GM/NS 100 ML 2 GM/100 ML BAG IVPB (19:44)
[2024-03-21] MEDS: clonazePAM (*CRX) 0.5 MG TABLET 1 MG PO (19:44)
[2024-03-21] MEDS: traZODone HCL 50 MG TABLET 200 MG PO (19:45)
[2024-03-21] MEDS: LORATADINE 10 MG TABLET PO (19:45)
[2024-03-21] MEDS: clonazePAM (*CRX) 0.5 MG TABLET PO (19:45)
[2024-03-21 20:00] LABS: Glucose Point of Care 112 mg/dl (65-105)
[2024-03-22] VITALS (13 sets, daily range): BP systolic 104–135; BP diastolic 67–89; PULSE 66–88; RESP 16–20; TEMP 36.6–36.7; O2SAT 93–98
[2024-03-22] MEDS: oxyCODONE/ACETAMINOPHEN (*CRX) 10-325 MG TABLET 0.5 TAB PO ×2 (04:07→17:06)
[2024-03-22 05:33] LABS: Hematocrit 35.4 % (37.0-47.0); Hemoglobin 11.1 g/dL (12.0-15.0); Mean Corpuscular HGB Conc 31.4 g/dl (32-36); Mean Corpuscular Hemoglobin 30.4 pg (26-34); Platelet Count Result 161 k/mm3 (150-375); Red Blood Count 3.65 M/mm3 (4.2-5.4); White Blood Count 9.2 K/mm3 (4.5-10.0)
[2024-03-22 05:52] LABS: Alanine Aminotransferase 13 U/L (6-35); Albumin Level 3.4 g/dL (3.5-5.1); Alkaline Phosphatase 52 U/L (38-126); Anion Gap 9 mmol/L (4-12); Aspartate Amino Transferase 24 U/L (14-36); Bilirubin,Total 0.5 mg/dL (0.2-1.3); Blood Urea Nitrogen 48 mg/dL (7-17); Calcium 8.3 mg/dL (8.4-10.2); Carbon Dioxide 22 mmol/L (22-30); Chloride 105 mmol/L (98-107); Estimated Glomerular Filt Rate 27; Glucose 149 mg/dL (65-110); Potassium 4.6 mmol/L (3.4-5.0); Sodium 136 mmol/L (137-145)
--- NOTE | 2024-03-22 07:40 | P.PNIM_ITS ---
Progress Note: A&P Assessment and Plan (1) Urinary tract infection: Code(s): N39.0 - Urinary tract infection, site not specified Status: Acute (2) Ventricular bigeminy: Code(s): I49.8 - Other specified cardiac arrhythmias Status: Acute (3) Insomnia: Code(s): G47.00 - Insomnia, unspecified Status: Acute (4) Degenerative lumbar disc: Code(s): M51.36 - Other intervertebral disc degeneration, lumbar region Status: Acute (5) Acute metabolic encephalopathy: Code(s): G93.41 - Metabolic encephalopathy Status: Acute (6) Diabetes: Code(s): E11.9 - Type 2 diabetes mellitus without complications Status: Acute (7) Chronic hypoxic respiratory failure, on home oxygen therapy: Code(s): J96.11 - Chronic respiratory failure with hypoxia; Z99.81 - Dependence on supplemental oxygen Status: Acute (8) TARIQ (acute kidney injury): Code(s): N17.9 - Acute kidney failure, unspecified Status: Acute Plan Metabolic encephalopathy secondary to UTI * CT head no acute issues * UA Nitrate + with bacteria- culture pending * ceftriaxone 2g daily * WBC improved to 8.2 TARIQ * cr double from admission 03/20-0.9, 1.80 today * will consult nephrology * add 0.9 NS * - avoid nephrotoxic drugs * - on losartan- will continue * -eliquis was decreased per card (unsure why pt is on eliquis) Ventricular bigeminy * Resumed BB * Cardiology consulted/Benign Chronic respiratory failure with hypoxia * Secondary to Long COVID in 2019 * on supplemental oxygen on home 3L [place] * will need outpt f/u with sleep medicine * - will order CPAP here Diabetes * Accu-Cheks a.c. HS * sliding scale insulin * hold oral diabetic medications * Hemoglobin A1c goal * Diabetic diet * Optimize Gabe inhibitors and statins. * Watch for hypoglycemia/hypoglycemic protocol ordered Insomnia * Resumed clonazepam and trazodone HX HLD: Resumed Statin Code status: Full code per patient DVT prophylaxis: eliqus Stress ulcer prophylaxis: Protonix 40 daily PT/OT notes: PT/OT Pending Disposition: Patient admitted with acute metabolic encephalopathy secondary to urinary tract infection, UA nitrate positive with bacteriuria and urinary complaints. Patient was started on IV Rocephin 2 g with mental improvement alert and oriented x3. Patient does have chronic respiratory failure secondary to long COVID on 3 L home oxygen. Rehab upon discharge Time Spent With Patient Time with patient: 15 - 25 minutes Subjective Date/time seen: 03/22/24 07:40 Interval history: 03/21-denies chest pain. ECHO 03/20- ?EF 60-65%. will need outpt f/u for HUSSAIN- stopped using CPAP and oxygen for it for awhile. on metoprolol for arrhythmia. normal mg, tsh. Will order CPAP at night here. she is up in the chair- alert, oriented to self and place. Pleasant, O2 per ns. 03/22- seen and examined today- cpap overnight. Cr worsen- unsure why. cardiology decreased her eliquis to 2.5 mg- unsure why pt is on eliquis. nephrology is consulted. value analysis coordinator reported that pt is accepted to [facility] tomorrow 03/23 Review of Systems Review of Systems: All systems reviewed & are unremarkable except as noted in HPI and below Exam Narrative: Physical Exam: * GENERAL: Alert and oriented x 3. Some intermittent confusion No acute distress. in better spirit today * EYES: EOMI. No scle
--- NOTE | 2024-03-22 07:40 | PM.IMPN ---
Progress Note: A&P Assessment and Plan (1) Urinary tract infection: Code(s): N39.0 - Urinary tract infection, site not specified Status: Acute (2) Ventricular bigeminy: Code(s): I49.8 - Other specified cardiac arrhythmias Status: Acute (3) Insomnia: Code(s): G47.00 - Insomnia, unspecified Status: Acute (4) Degenerative lumbar disc: Code(s): M51.36 - Other intervertebral disc degeneration, lumbar region Status: Acute (5) Acute metabolic encephalopathy: Code(s): G93.41 - Metabolic encephalopathy Status: Acute (6) Diabetes: Code(s): E11.9 - Type 2 diabetes mellitus without complications Status: Acute (7) Chronic hypoxic respiratory failure, on home oxygen therapy: Code(s): J96.11 - Chronic respiratory failure with hypoxia; Z99.81 - Dependence on supplemental oxygen Status: Acute (8) TARIQ (acute kidney injury): Code(s): N17.9 - Acute kidney failure, unspecified Status: Acute Plan Metabolic encephalopathy secondary to UTI CT head no acute issues UA Nitrate + with bacteria- culture pending ceftriaxone 2g daily WBC improved to 8.2 TARIQ cr double from admission 03/20-0.9, 1.80 today will consult nephrology add 0.9 NS - avoid nephrotoxic drugs - on losartan- will continue -eliquis was decreased per card (unsure why pt is on eliquis) Ventricular bigeminy Resumed BB Cardiology consulted/Benign Chronic respiratory failure with hypoxia Secondary to Long COVID in 2019 on supplemental oxygen on home 3L [place] will need outpt f/u with sleep medicine - will order CPAP here Diabetes Accu-Cheks a.c. HS sliding scale insulin hold oral diabetic medications Hemoglobin A1c goal Diabetic diet Optimize Gabe inhibitors and statins. Watch for hypoglycemia/hypoglycemic protocol ordered Insomnia Resumed clonazepam and trazodone HX HLD: Resumed Statin Code status: Full code per patient DVT prophylaxis: eliqus Stress ulcer prophylaxis: Protonix 40 daily PT/OT notes: PT/OT Pending Disposition: Patient admitted with acute metabolic encephalopathy secondary to urinary tract infection, UA nitrate positive with bacteriuria and urinary complaints. Patient was started on IV Rocephin 2 g with mental improvement alert and oriented x3. Patient does have chronic respiratory failure secondary to long COVID on 3 L home oxygen. Rehab upon discharge Time Spent With Patient Time with patient: 15 - 25 minutes Subjective Date/time seen: 03/22/24 07:40 Interval history: 03/21-denies chest pain. ECHO 03/20- ?EF 60-65%. will need outpt f/u for HSUSAIN- stopped using CPAP and oxygen for it for awhile. on metoprolol for arrhythmia. normal mg, tsh. Will order CPAP at night here. she is up in the chair- alert, oriented to self and place. Pleasant, O2 per ns. 03/22- seen and examined today- cpap overnight. Cr worsen- unsure why. cardiology decreased her eliquis to 2.5 mg- unsure why pt is on eliquis. nephrology is consulted. tour coordinator reported that pt is accepted to [facility] tomorrow 03/23 Review of Systems Review of Systems: All systems reviewed & are unremarkable except as noted in HPI and below Exam Narrative: Physical Exam: GENERAL: Alert and oriented x 3. Some intermittent confusion No acute distress. in better spirit today EYES: EOMI. No scleral icterus. PERRLA. HEENT: Moist mucous membranes. LUNGS: Clear to auscultation bilaterally. No accessory muscle use. CARDIOVASCULAR: Bigeminy. No murmur. No JVD. S1-S2 ABDOMEN: Soft, mild tenderness and non-distended. No palpable masses. EXTREMITIES: No edema. Non-tender SKIN: No rashes or lesions. Skin warm, dry. NEUROLOGIC: No focal neurological deficits. CN II-XII grossly intact PSYCHIATRIC: Appropriate mood and affect. Good judgement and insight. No visual or auditory hallucinations. No suicidal or homicidal ideation.
[2024-03-22 07:55] LABS: Glucose Point of Care 130 mg/dl (65-105)
--- NOTE | 2024-03-22 07:59 | PM.PNCARD ---
Progress Note: A&P Assessment and Plan (1) Ventricular bigeminy: Code(s): I49.8 - Other specified cardiac arrhythmias Status: Acute Assessment and Plan: Benign. On Metoprolol. Normal Mag and TSH. 03/20/24 Echo: EF 60-65%, D shape ventricular septum s/o RV pressure and volume overload, grade I diastolic dysfunction (E/e' 9), severe RVE/hypokinesis, mod SY, mild-mod (HUY 1.5 cm2), mild-mod TR, RVSP 79 s/o severe pulm hypertension. No further cardiac workup is needed. (2) Urinary tract infection: Code(s): N39.0 - Urinary tract infection, site not specified Status: Acute Assessment and Plan: On antibiotics. Followed by hospitalist. (3) Hypertension: Code(s): I10 - Essential (primary) hypertension Status: Acute Assessment and Plan: Low normal with impaired kidney function. Due to worsening kidney function, decrease Eliquis 2.5 mg BID (not sure why she is on this). Decrease Losartan 50 mg daily. (4) Dyslipidemia: Code(s): E78.5 - Hyperlipidemia, unspecified Status: Acute Assessment and Plan: On Pravastatin. (5) Pulmonary hypertension: Code(s): I27.20 - Pulmonary hypertension, unspecified Status: Acute Assessment and Plan: Likely due to untreated HUSSAIN that was followed by PCP. Will need outpatient assessment. (6) Aortic stenosis: Code(s): I35.0 - Nonrheumatic aortic (valve) stenosis Status: Acute Assessment and Plan: Stable. Subjective Date/time seen: 03/22/24 07:59 Interval history: Denies chest pain or sob. Reports she has HUSSAIN but stopped using CPAP and oxygen for it for awhile. Exam Const: General: cooperative, healthy appearing, comfortable and confusion Orientation/consciousness: oriented to person, oriented to place, No oriented to time and confusion Resp: Auscultation: clear to auscultation bilaterally, no crackles, no rales, no rhonchi and no wheezes Cardio: Rate: regular rate Rhythm: regular rhythm Heart sounds: no murmurs Peripheral pulses: dorsalis pedis present Neuro: General: oriented to person, oriented to place, No oriented to time and confusion Extrem: Right lower extremity: no edema Left lower extremity: no edema Objective Data Vital Signs Vital Signs: Vital Signs - 24 hr 03/21/24 08:40 03/21/24 09:40 03/21/24 08:40 Temperature Pulse Rate 95 Respiratory Rate Blood Pressure 136/85 Pulse Oximetry 92 92 Oxygen Delivery Nasal Cannula Nasal Cannula Oxygen Flow Rate 3 3 03/21/24 08:00 03/21/24 12:00 03/21/24 13:50 Temperature Pulse Rate 85 84 Respiratory Rate Blood Pressure Pulse Oximetry Oxygen Delivery Nasal Cannula Oxygen Flow Rate 3 03/21/24 14:00 03/21/24 16:00 03/21/24 19:44 Temperature 98.1 F Pulse Rate 75 71 89 Respiratory Rate 16 Blood Pressure 98/49 L Pulse Oximetry 98 Oxygen Delivery Oxygen Flow Rate 03/21/24 20:00 03/21/24 20:00 03/21/24 20:00 Temperature 97.5 F L Pulse Rate 98 89 Respiratory Rate 18 Blood Pressure 111/73 Pulse Oximetry 91 93 Oxygen Delivery Nasal Cannula Oxygen Flow Rate 3 03/21/24 22:33 03/22/24 00:00 03/22/24 04:00 Temperature Pulse Rate 85 80 86 Respiratory Rate 18 Blood Pressure Pulse Oximetry 95 Oxygen Delivery Autopap Oxygen Flow Rate 03/22/24 01:00 03/22/24 04:38 Temperature 97.9 F Pulse Rate 80 Respiratory Rate 16 18 Blood Pressure 104/89 Pulse Oximetry 96 98 Oxygen Delivery Autopap Oxygen Flow Rate Intake/Output Intake/Output: Intake & Output 03/19/24 03/20/24 03/21/24 03/22/24 23:59 23:59 23:59 23:59 Intake Total 910 1330 Balance 910 1330 Meds/Results Medications: Active Medications Generic Name Dose Route Start Last Admin Trade Name Freq PRN Reason Stop Dose Admin Acetaminophen 650 mg 03/21/24 12:31 Acetaminophen 325 Mg Tablet PO Q6H PRN Mild Pain (1-3) or Fever Apix
[2024-03-22] MEDS: PRAVASTATIN SODIUM 20 MG TABLET 40 MG PO (09:20)
[2024-03-22] MEDS: PANTOPRAZOLE 40 MG TABLET PO (09:21)
[2024-03-22] MEDS: DULoxetine HCL 60 MG CAPSULE.DR PO (09:21)
[2024-03-22] MEDS: LOSARTAN POTASSIUM 50 MG TABLET PO (09:21)
[2024-03-22] MEDS: APIXABAN 2.5 MG TABLET PO ×2 (09:21→20:40)
[2024-03-22] MEDS: LEFLUNOMIDE 20 MG TABLET PO (09:21)
[2024-03-22] MEDS: SODIUM CHLORIDE 0.9% IV 1,000 ML 100 ML IV CONT (09:22)
[2024-03-22] MEDS: ACETAMINOPHEN 325 MG TABLET 650 MG PO (10:09)
[2024-03-22 11:50] LABS: Glucose Point of Care 183 mg/dl (65-105)
--- NOTE | 2024-03-22 13:02 | PM.CNNEP ---
Assessment and Plan Assessment and plan (1) TARIQ (acute kidney injury): Code(s): N17.9 - Acute kidney failure, unspecified Status: Acute Assessment and Plan: as noted by trend of labs since admission suspect due to UTI coupled with poor oral intake/volume depletion with possible contributions for ARB use check urine studies and CPK check renal ultrasound agree with trial of IVFs hold ARB therapy follow trend of repeat labs and UOP (2) Urinary tract infection: Code(s): N39.0 - Urinary tract infection, site not specified Status: Acute Assessment and Plan: as suggested by admission UA urine culture with E. coli on antibiotics (3) Acute metabolic encephalopathy: Code(s): G93.41 - Metabolic encephalopathy Status: Acute Assessment and Plan: resolving presumsed to be secondary to UTI follow mentation (4) Hypertension: Code(s): I10 - Essential (primary) hypertension Status: Chronic Assessment and Plan: reasonable control at this time follow trend of hemodynamics (5) Diabetes: Code(s): E11.9 - Type 2 diabetes mellitus without complications Status: Chronic Assessment and Plan: follow accu-cheks glycemic control per hospitalists I will continue follow the patient with you while she remains hospitalized and make further recommendations as deemed necessary. Thank you for allowing me to participate in the care of this patient. History of Present Illness Reason for Consult Consult date: 03/22/24 Reason for consult: acute renal failure Chief Complaint Chief complaint: Delirium,UTI,Ventricular Bigeminy History of Present Illness Narrative: The patient is an 83-year-old female with a past medical history as outlined below who presented to [facility] Emergency room with altered mental status. Apparently, on the day of presentation, the patient was alert and oriented to self when at baseline she is usually alert and oriented x3. The patient's grandson provided most of the history when she presented to the ER. Her family reports that in the past, when she has had issues with altered mentation, it is usually secondary to a urinary tract infection. Their concern was that she may have been developing one which has resulted in her change in mentation. Hence, she was brought to the emergency room for this assessment. Workup and evaluation in the emergency room demonstrated the patient to be hemodynamically stable and in no acute distress other than her altered mentation. Her urinalysis was highly suggestive of urinary tract infection and routine blood test demonstrated a mildly elevated white blood cell count of 12.1 and some evidence of hyperglycemia but her other labs were fairly unremarkable. A CT scan of her head was without any acute changes as well. Given her laboratory findings and history, appropriate cultures were obtained and she was started on IV antibiotic therapy and subsequently admitted to the hospital for further evaluation and therapy. Since her admission, her mentation has been slowly improving with ongoing therapy/interventions. However, it was noted by labs done this morning that her renal function has been declining since her admission to the hospital. Renal consultation was requested due to her acute kidney injury/acute renal failure. From review of her records, her baseline creatinine normally runs fairly normal although she has had some fluctuations in her creatinine from time to time. Her medications have been adjusted given her acute kidney injury/ acute renal failure and she has been initiated on IV fluids on the assumption volume depletion may be playing a role with this issue as well. As already mentioned above, her mentation has improved significantly since her admission to the hospital. Currently, at the time my evaluation, she appears to be in no acute distress. Review of Syst
[2024-03-22] MEDS: polyethylene glycoL 3350 17 GM POWD.PACK PO (16:11)
[2024-03-22] MEDS: BISACODYL 5 MG TABLET EC PO (16:11)
[2024-03-22 16:52] LABS: Glucose Point of Care 158 mg/dl (65-105)
[2024-03-22 20:11] LABS: Glucose Point of Care 159 mg/dl (65-105)
[2024-03-22] MEDS: LORATADINE 10 MG TABLET PO (20:40)
[2024-03-22] MEDS: METOPROLOL SUCCINATE EXT REL 25 MG TABCR PO (20:40)
[2024-03-22] MEDS: cefTRIAXone 2 GM/NS 100 ML 2 GM/100 ML BAG IVPB (20:40)
[2024-03-22] MEDS: clonazePAM (*CRX) 0.5 MG TABLET 1 MG PO (20:40)
[2024-03-22] MEDS: clonazePAM (*CRX) 0.5 MG TABLET PO (20:40)
[2024-03-22] MEDS: traZODone HCL 50 MG TABLET 200 MG PO (20:40)
[2024-03-22 21:07] LABS: Creatinine Urine 93.5 mg/dL; Total Protein Urine Random 28 mg/dL; Urea Random Urine 947 MG/DL
[2024-03-22 21:10] LABS: Sodium Urine Random 20 meq/L
[2024-03-22 22:03] LABS: Eosinophil Urine None Seen % (None Seen); Urine Eos QC 2nd Tech Confirmed
[2024-03-23] VITALS (12 sets, daily range): BP systolic 110–143; BP diastolic 66–82; PULSE 62–84; RESP 14–22; TEMP 36.5–37; O2SAT 90–97
[2024-03-23] MEDS: SODIUM CHLORIDE 0.9% IV 1,000 ML 100 ML IV CONT ×2 (01:59→19:42)
[2024-03-23] MEDS: oxyCODONE/ACETAMINOPHEN (*CRX) 10-325 MG TABLET 0.5 TAB PO ×3 (02:17→18:56)
[2024-03-23 05:02] LABS: Hematocrit 36.3 % (37.0-47.0); Hemoglobin 11.3 g/dL (12.0-15.0); Mean Corpuscular HGB Conc 31.1 g/dl (32-36); Mean Corpuscular Hemoglobin 30.5 pg (26-34); Mean Corpuscular Volume 97.8 fl (80-100); Platelet Count Result 168 k/mm3 (150-375); Red Blood Count 3.71 M/mm3 (4.2-5.4); White Blood Count 7.4 K/mm3 (4.5-10.0)
[2024-03-23 05:13] LABS: Alanine Aminotransferase 13 U/L (6-35); Albumin Level 3.4 g/dL (3.5-5.1); Alkaline Phosphatase 52 U/L (38-126); Anion Gap 8 mmol/L (4-12); Aspartate Amino Transferase 25 U/L (14-36); Bilirubin,Total 0.5 mg/dL (0.2-1.3); Blood Urea Nitrogen 48 mg/dL (7-17); Calcium 7.7 mg/dL (8.4-10.2); Carbon Dioxide 18 mmol/L (22-30); Chloride 111 mmol/L (98-107); Creatine Kinase 73 U/L (30-135); Estimated Glomerular Filt Rate 39; Glucose 157 mg/dL (65-110); Potassium 4.1 mmol/L (3.4-5.0); Sodium 137 mmol/L (137-145)
--- NOTE | 2024-03-23 07:33 | PM.PNCARD ---
Progress Note: A&P Assessment and Plan (1) Ventricular bigeminy: Code(s): I49.8 - Other specified cardiac arrhythmias Status: Acute Assessment and Plan: Benign. On Metoprolol. Normal Mag and TSH. 03/20/24 Echo: EF 60-65%, D shape ventricular septum s/o RV pressure and volume overload, grade I diastolic dysfunction (E/e' 9), severe RVE/hypokinesis, mod SY, mild-mod (HUY 1.5 cm2), mild-mod TR, RVSP 79 s/o severe pulm hypertension. No further cardiac workup is needed. Will sign off. Please call with any questions. (2) Urinary tract infection: Code(s): N39.0 - Urinary tract infection, site not specified Status: Acute Assessment and Plan: On antibiotics. Followed by hospitalist. (3) Hypertension: Code(s): I10 - Essential (primary) hypertension Status: Acute Assessment and Plan: Stable. Due to worsening kidney function, decrease Eliquis 2.5 mg BID (not sure why she is on this). Losartan on hold due to worsening kidney function and worse kidney function. Kidney function stabilized now. Nephrology following. (4) Dyslipidemia: Code(s): E78.5 - Hyperlipidemia, unspecified Status: Acute Assessment and Plan: On Pravastatin. (5) Pulmonary hypertension: Code(s): I27.20 - Pulmonary hypertension, unspecified Status: Acute Assessment and Plan: Likely due to untreated HUSSAIN that was followed by PCP. Will need outpatient assessment. (6) Aortic stenosis: Code(s): I35.0 - Nonrheumatic aortic (valve) stenosis Status: Acute Assessment and Plan: Stable. Subjective Date/time seen: 03/23/24 07:33 Interval history: Denies chest pain or sob. Reports she has HUSSAIN but stopped using CPAP and oxygen for it for awhile. Exam Const: General: cooperative, healthy appearing, comfortable and confusion Orientation/consciousness: oriented to person, oriented to place, No oriented to time and confusion Resp: Auscultation: clear to auscultation bilaterally, no crackles, no rales, no rhonchi and no wheezes Cardio: Rate: regular rate Rhythm: regular rhythm Heart sounds: no murmurs Peripheral pulses: dorsalis pedis present Neuro: General: oriented to person, oriented to place, No oriented to time and confusion Extrem: Right lower extremity: no edema Left lower extremity: no edema Objective Data Vital Signs Vital Signs: Vital Signs - 24 hr 03/22/24 09:20 03/22/24 09:20 03/22/24 08:00 Temperature Pulse Rate 88 73 Respiratory Rate Blood Pressure 126/82 Pulse Oximetry 93 93 Oxygen Delivery Nasal Cannula Oxygen Flow Rate 3 03/22/24 12:00 03/22/24 14:36 03/22/24 16:00 Temperature 98.1 F Pulse Rate 82 74 79 Respiratory Rate 16 Blood Pressure 112/74 Pulse Oximetry 98 Oxygen Delivery Oxygen Flow Rate 03/22/24 20:37 03/22/24 20:40 03/22/24 20:00 Temperature 98 F Pulse Rate 66 88 85 Respiratory Rate 20 Blood Pressure 135/67 Pulse Oximetry 94 Oxygen Delivery Oxygen Flow Rate 03/22/24 20:00 03/22/24 22:41 03/23/24 00:00 Temperature Pulse Rate 72 74 Respiratory Rate 16 Blood Pressure Pulse Oximetry 94 Oxygen Delivery Nasal Cannula Autopap Oxygen Flow Rate 3 03/23/24 02:29 03/23/24 04:00 03/23/24 05:53 Temperature 98 F Pulse Rate 81 62 64 Respiratory Rate 22 H 20 Blood Pressure 110/66 Pulse Oximetry 90 Oxygen Delivery Autopap Oxygen Flow Rate Intake/Output Intake/Output: Intake & Output 03/20/24 03/21/24 03/22/24 03/23/24 23:59 23:59 23:59 23:59 Intake Total 910 1430 1780 300 Balance 910 1430 1780 300 Meds/Results Medications: Active Medications Generic Name Dose Route Start Last Admin Trade Name Freq PRN Reason Stop Dose Admin Acetaminophen 650 mg 03/21/24 12:31 03/22/24 10:09 Acetaminophen 325 Mg Tablet PO 650 mg Q6H PRN Administration Mild Pain (1-3) or Fever Apixaban 2.5 mg 03/22/24 09:00 0
--- NOTE | 2024-03-23 07:56 | P.PNIM_ITS ---
Progress Note: A&P Assessment and Plan (1) Urinary tract infection: Code(s): N39.0 - Urinary tract infection, site not specified Status: Acute (2) Ventricular bigeminy: Code(s): I49.8 - Other specified cardiac arrhythmias Status: Acute (3) Insomnia: Code(s): G47.00 - Insomnia, unspecified Status: Acute (4) Degenerative lumbar disc: Code(s): M51.36 - Other intervertebral disc degeneration, lumbar region Status: Acute (5) Acute metabolic encephalopathy: Code(s): G93.41 - Metabolic encephalopathy Status: Acute (6) Diabetes: Code(s): E11.9 - Type 2 diabetes mellitus without complications Status: Acute (7) Chronic hypoxic respiratory failure, on home oxygen therapy: Code(s): J96.11 - Chronic respiratory failure with hypoxia; Z99.81 - Dependence on supplemental oxygen Status: Acute (8) TARIQ (acute kidney injury): Code(s): N17.9 - Acute kidney failure, unspecified Status: Acute Plan Metabolic encephalopathy secondary to UTI * CT head no acute issues * UA Nitrate + with bacteria- culture pending * ceftriaxone 2g daily * WBC improved to 8.2 03/23- wbc 7.4 TARIQ * cr double from admission 03/20-0.9, 1.80 today * will consult nephrology * add 0.9 NS * - avoid nephrotoxic drugs * - on losartan- will continue * -eliquis was decreased per card (unsure why pt is on eliquis) 03/23- BUN 48, Cr 1.3 Ventricular bigeminy * Resumed BB * Cardiology consulted/Benign Chronic respiratory failure with hypoxia * Secondary to Long COVID in 2019 * on supplemental oxygen on home 3L [place] * will need outpt f/u with sleep medicine * will order CPAP here Diabetes * Accu-Cheks a.c. HS * sliding scale insulin * hold oral diabetic medications * Hemoglobin A1c goal * Diabetic diet * Optimize Gabe inhibitors and statins. * Watch for hypoglycemia/hypoglycemic protocol ordered Insomnia * Resumed clonazepam and trazodone HX HLD: Resumed Statin Code status: Full code per patient DVT prophylaxis: eliqus Stress ulcer prophylaxis: Protonix 40 daily PT/OT notes: PT/OT Pending Disposition: Patient admitted with acute metabolic encephalopathy secondary to urinary tract infection, UA nitrate positive with bacteriuria and urinary complaints. Patient was started on IV Rocephin 2 g with mental improvement alert and oriented x3. Patient does have chronic respiratory failure secondary to long COVID on 3 L home oxygen. Rehab upon discharge Time Spent With Patient Time with patient: less than 15 minutes Subjective Date/time seen: 03/23/24 07:56 Interval history: Denies chest pain or sob. Reports she has HUSSAIN but stopped using CPAP and oxygen for it for awhile. -denies chest pain. ECHO 03/20- ?EF 60-65%.? will need outpt f/u for HUSSAIN- stopped using CPAP and oxygen for it for awhile. on metoprolol for arrhythmia.? normal mg, tsh.? Will order CPAP at night here. she is up in the chair- alert, oriented to self and place. Pleasant, O2 per ns. 03/22- seen and examined today- cpap overnight. Cr worsen- unsure why.? cardiology decreased her eliquis to 2.5 mg- unsure why pt is on eliquis.? nephrology is consulted. mortgage coordinator reported that pt is accepted to [facility] tomorrow 03/23 03/23 card signed off- stable from their standpoint. Nephrology saw her yesterday- Cr and GFR slightly improved today. will see if any recommendations from nephrology- if stable- possible discha
--- NOTE | 2024-03-23 07:56 | PM.IMPN ---
Progress Note: A&P Assessment and Plan (1) Urinary tract infection: Code(s): N39.0 - Urinary tract infection, site not specified Status: Acute (2) Ventricular bigeminy: Code(s): I49.8 - Other specified cardiac arrhythmias Status: Acute (3) Insomnia: Code(s): G47.00 - Insomnia, unspecified Status: Acute (4) Degenerative lumbar disc: Code(s): M51.36 - Other intervertebral disc degeneration, lumbar region Status: Acute (5) Acute metabolic encephalopathy: Code(s): G93.41 - Metabolic encephalopathy Status: Acute (6) Diabetes: Code(s): E11.9 - Type 2 diabetes mellitus without complications Status: Acute (7) Chronic hypoxic respiratory failure, on home oxygen therapy: Code(s): J96.11 - Chronic respiratory failure with hypoxia; Z99.81 - Dependence on supplemental oxygen Status: Acute (8) TARIQ (acute kidney injury): Code(s): N17.9 - Acute kidney failure, unspecified Status: Acute Plan Metabolic encephalopathy secondary to UTI CT head no acute issues UA Nitrate + with bacteria- culture pending ceftriaxone 2g daily WBC improved to 8.2 03/23- wbc 7.4 TARIQ cr double from admission 03/20-0.9, 1.80 today will consult nephrology add 0.9 NS - avoid nephrotoxic drugs - on losartan- will continue -eliquis was decreased per card (unsure why pt is on eliquis) 03/23- BUN 48, Cr 1.3 Ventricular bigeminy Resumed BB Cardiology consulted/Benign Chronic respiratory failure with hypoxia Secondary to Long COVID in 2019 on supplemental oxygen on home 3L [place] will need outpt f/u with sleep medicine will order CPAP here Diabetes Accu-Cheks a.c. HS sliding scale insulin hold oral diabetic medications Hemoglobin A1c goal Diabetic diet Optimize Gabe inhibitors and statins. Watch for hypoglycemia/hypoglycemic protocol ordered Insomnia Resumed clonazepam and trazodone HX HLD: Resumed Statin Code status: Full code per patient DVT prophylaxis: eliqus Stress ulcer prophylaxis: Protonix 40 daily PT/OT notes: PT/OT Pending Disposition: Patient admitted with acute metabolic encephalopathy secondary to urinary tract infection, UA nitrate positive with bacteriuria and urinary complaints. Patient was started on IV Rocephin 2 g with mental improvement alert and oriented x3. Patient does have chronic respiratory failure secondary to long COVID on 3 L home oxygen. Rehab upon discharge Time Spent With Patient Time with patient: less than 15 minutes Subjective Date/time seen: 03/23/24 07:56 Interval history: Denies chest pain or sob. Reports she has HUSSAIN but stopped using CPAP and oxygen for it for awhile. -denies chest pain. ECHO 03/20- ?EF 60-65%.? will need outpt f/u for HUSSAIN- stopped using CPAP and oxygen for it for awhile. on metoprolol for arrhythmia.? normal mg, tsh.? Will order CPAP at night here. she is up in the chair- alert, oriented to self and place. Pleasant, O2 per ns. 03/22- seen and examined today- cpap overnight. Cr worsen- unsure why.? cardiology decreased her eliquis to 2.5 mg- unsure why pt is on eliquis.? nephrology is consulted. workers compensation coordinator reported that pt is accepted to [facility] tomorrow 03/23 03/23 card signed off- stable from their standpoint. Nephrology saw her yesterday- Cr and GFR slightly improved today. will see if any recommendations from nephrology- if stable- possible discharge to [place] today with out f/u Review of Systems Review of Systems: All systems reviewed & are unremarkable except as noted in HPI and below Exam Narrative: Physical Exam: GENERAL: Alert and oriented x 3. Some intermittent confusion No acute distress. in better spirit today EYES: EOMI. No scleral icterus. PERRLA. HEENT: Moist mucous membranes. LUNGS: Clear to auscultation bilaterally. No accessory muscle use. CARDIOVASCULAR: Bigeminy. No murmur. No JVD
[2024-03-23 08:12] LABS: Glucose Point of Care 136 mg/dl (65-105)
[2024-03-23] MEDS: PANTOPRAZOLE 40 MG TABLET PO (10:24)
[2024-03-23] MEDS: DULoxetine HCL 60 MG CAPSULE.DR PO (10:25)
[2024-03-23] MEDS: BISACODYL 5 MG TABLET EC PO (10:25)
[2024-03-23] MEDS: LEFLUNOMIDE 20 MG TABLET PO (10:25)
[2024-03-23] MEDS: PRAVASTATIN SODIUM 20 MG TABLET 40 MG PO (10:25)
[2024-03-23] MEDS: APIXABAN 2.5 MG TABLET PO ×2 (10:25→20:30)
[2024-03-23] MEDS: polyethylene glycoL 3350 17 GM POWD.PACK PO (10:26)
--- NOTE | 2024-03-23 10:45 | PCPTNOTE ---
Attempted to see aptient for PT, however patient refused due to pain at 05/09. RN aware and gave pain medication.
--- NOTE | 2024-03-23 11:30 | PM.PNNEP ---
Progress Note: A&P Assessment and Plan (1) TARIQ (acute kidney injury): Code(s): N17.9 - Acute kidney failure, unspecified Status: Acute Assessment and Plan: improvement noted suspect due to UTI coupled with poor oral intake/volume depletion with possible contributions for ARB use evaluation to date: normal renal ultrasound urine eosinophils negative urine electrolytes prerenal normal CPK s/p trial of IVFs holding ARB therapy - resume as outpatient depending on trend of BP readings follow trend of repeat labs and UOP (2) Urinary tract infection: Code(s): N39.0 - Urinary tract infection, site not specified Status: Acute Assessment and Plan: as suggested by admission UA urine culture with E. coli on antibiotics (3) Acute metabolic encephalopathy: Code(s): G93.41 - Metabolic encephalopathy Status: Acute Assessment and Plan: resolving presumsed to be secondary to UTI follow mentation (4) Hypertension: Code(s): I10 - Essential (primary) hypertension Status: Chronic Assessment and Plan: reasonable control at this time follow trend of hemodynamics (5) Diabetes: Code(s): E11.9 - Type 2 diabetes mellitus without complications Status: Chronic Assessment and Plan: follow accu-cheks glycemic control per hospitalists Not much else to add -- will continue to follow from a distance. Subjective Date/time seen: 03/23/24 11:30 Interval history: Follow-up for acute kidney injury/acute renal failure. Overall, she feels that she is doing significantly better; improvement in renal function noted with trial of IVFs by AM labs; no other issues/events overnight or earlier this morning; no apparent distress noted. Exam Narrative: General: elderly but WD/WN female in NAD Heart: normal S1 and S2; no rub Lungs: clear to auscultation Abdomen: soft, nontender, nondistended, positive bowel sounds Extremities: no cyanosis or clubbing; no edema Skin: warm and dry Objective Data Vital Signs Vital Signs: Vital Signs Temp Pulse Resp BP Pulse Ox O2 Del Method O2 Flow Rate 03/23/24 10:25 90 Nasal Cannula 3 03/23/24 08:00 68 03/23/24 05:53 98 F 64 20 110/66 90 03/23/24 04:00 62 03/23/24 02:29 81 22 H Autopap 03/23/24 00:00 74 03/22/24 22:41 72 16 Autopap 03/22/24 20:00 94 Nasal Cannula 3 03/22/24 20:00 85 03/22/24 20:40 88 03/22/24 20:37 98 F 66 20 135/67 94 Intake/Output Intake/Output: Intake & Output 03/20/24 03/21/24 03/22/24 03/23/24 23:59 23:59 23:59 23:59 Intake Total 910 1430 1780 660 Balance 910 1430 1780 660 Meds/Results Medications: Active Medications Generic Name Dose Route Start Last Admin Trade Name Freq PRN Reason Stop Dose Admin Acetaminophen 650 mg 03/21/24 12:31 03/22/24 10:09 Acetaminophen 325 Mg Tablet PO 650 mg Q6H PRN Administration Mild Pain (1-3) or Fever Apixaban 2.5 mg 03/22/24 09:00 03/23/24 10:25 Apixaban 2.5 Mg Tablet PO 2.5 mg Q12HR ANAHI Administration Bisacodyl 5 mg 03/22/24 15:37 03/23/24 10:25 Bisacodyl 5 Mg Tablet Ec PO 5 mg QAM PRN Administration Constipation Clonazepam 1 mg 03/20/24 21:00 03/22/24 20:40 Clonazepam (*Crx) 0.5 Mg Tablet PO 1 mg QHS ANAHI Administration Clonazepam 0.5 mg 03/20/24 07:29 03/22/24 20:40 Clonazepam (*Crx) 0.5 Mg Tablet PO 0.5 mg QHS PRN Administration Insomnia Dextrose 12.5 gm 03/20/24 07:21 Dextrose 50% 25 Gm/50 Ml Syringe IV PUSH PRN PRN Hypoglycemia Protocol Duloxetine HCl 60 mg 03/20/24 09:00 03/23/24 10:25 Duloxetine Hcl 60 Mg Capsule.Dr PO 60 mg DAILY ANAHI Administration Glucagon 1 mg 03/20/24 07:21 Glucagon For Inj 1 Mg Vial IM PRN PRN Hypoglycemia Protocol Glucose 15 gm 03/20/24 07:
--- NOTE | 2024-03-23 11:30 | P.PNNP_ITS ---
Progress Note: A&P Assessment and Plan (1) TARIQ (acute kidney injury): Code(s): N17.9 - Acute kidney failure, unspecified Status: Acute Assessment and Plan: * improvement noted * suspect due to UTI coupled with poor oral intake/volume depletion with possible contributions for ARB use * evaluation to date: * normal renal ultrasound * urine eosinophils negative * urine electrolytes prerenal * normal CPK * s/p trial of IVFs * holding ARB therapy - resume as outpatient depending on trend of BP readings * follow trend of repeat labs and UOP (2) Urinary tract infection: Code(s): N39.0 - Urinary tract infection, site not specified Status: Acute Assessment and Plan: * as suggested by admission UA * urine culture with E. coli * on antibiotics (3) Acute metabolic encephalopathy: Code(s): G93.41 - Metabolic encephalopathy Status: Acute Assessment and Plan: * resolving * presumsed to be secondary to UTI * follow mentation (4) Hypertension: Code(s): I10 - Essential (primary) hypertension Status: Chronic Assessment and Plan: * reasonable control at this time * follow trend of hemodynamics (5) Diabetes: Code(s): E11.9 - Type 2 diabetes mellitus without complications Status: Chronic Assessment and Plan: * follow accu-cheks * glycemic control per hospitalists Not much else to add -- will continue to follow from a distance. Subjective Date/time seen: 03/23/24 11:30 Interval history: Follow-up for acute kidney injury/acute renal failure. Overall, she feels that she is doing significantly better; improvement in renal function noted with trial of IVFs by AM labs; no other issues/events overnight or earlier this morning; no apparent distress noted. Exam Narrative: General: elderly but WD/WN female in NAD Heart: normal S1 and S2; no rub Lungs: clear to auscultation Abdomen: soft, nontender, nondistended, positive bowel sounds Extremities: no cyanosis or clubbing; no edema Skin: warm and dry Objective Data Vital Signs Vital Signs: Vital Signs Temp Pulse Resp BP Pulse Ox O2 Del Method O2 Flow Rate 03/23/24 10:25 90 Nasal Cannula 3 03/23/24 08:00 68 03/23/24 05:53 98 F 64 20 110/66 90 03/23/24 04:00 62 03/23/24 02:29 81 22 H Autopap 03/23/24 00:00 74 03/22/24 22:41 72 16 Autopap 03/22/24 20:00 94 Nasal Cannula 3 03/22/24 20:00 85 03/22/24 20:40 88 03/22/24 20:37 98 F 66 20 135/67 94 Intake/Output Intake/Output: Intake & Output 03/20/24 03/21/24 03/22/24 03/23/24 23:59 23:59 23:59 23:59 Intake Total 910 1430 1780 660 Balance 910 1430 1780 660 Meds/Results Medications: Active Medications Generic Name Dose Route Start Last Admin Trade Name Freq PRN Reason Stop Dose Admin Acetaminophen 650 mg 03/21/24 12:31 03/22/24 10:09 Acetaminophen 325 Mg Tablet PO 650 mg Q6H PRN Administration Mild Pain (1-3) or Fever Apixaban 2.5 mg 03/22/24 09:00 03/23/24 10:25 Apixaban 2.5 Mg
[2024-03-23 12:16] LABS: Glucose Point of Care 214 mg/dl (65-105)
[2024-03-23] MEDS: INSULIN ASPART (*BKC) 100 UNITS/ML SUB-Q (12:26)
--- NOTE | 2024-03-23 12:58 | P.DS_ITS ---
DS: Admitting Diagnosis Discharge Date 03/24 Admitting Diagnosis altered mental status DS: Discharge Diagnosis Discharge Diagnosis (1) Urinary tract infection: Code(s): N39.0 - Urinary tract infection, site not specified Status: Acute (2) Ventricular bigeminy: Code(s): I49.8 - Other specified cardiac arrhythmias Status: Acute (3) Insomnia: Code(s): G47.00 - Insomnia, unspecified Status: Acute (4) Degenerative lumbar disc: Code(s): M51.36 - Other intervertebral disc degeneration, lumbar region Status: Acute (5) Acute metabolic encephalopathy: Code(s): G93.41 - Metabolic encephalopathy Status: Acute (6) Diabetes: Code(s): E11.9 - Type 2 diabetes mellitus without complications Status: Chronic (7) Chronic hypoxic respiratory failure, on home oxygen therapy: Code(s): J96.11 - Chronic respiratory failure with hypoxia; Z99.81 - Dependence on supplemental oxygen Status: Acute (8) CARMEN (acute kidney injury): Code(s): N17.9 - Acute kidney failure, unspecified Status: Acute Assessment and Plan: Final Dx: UTI, CARMEN, Chronic hypoxic respiratory failure, on home oxygen therapy, Other specified cardiac arrhythmias, Renal cyst, Cholelithiasis (accidental finding) Plan Metabolic encephalopathy secondary to UTI * CT head no acute issues * UA Nitrate + with bacteria- culture pending * ceftriaxone 2g daily * WBC improved to 8.2 03/23- wbc 7.4 CARMEN * cr double from admission 03/20-0.9, 1.80 today * will consult nephrology * add 0.9 NS * - avoid nephrotoxic drugs * - on losartan- decreased in setting of Carmen- monitor- will need a f/u on cmp out/BP meds adjustment * -eliquis was decreased per card 03/23- BUN 48, Cr 1.3 Ventricular bigeminy * Resumed BB * Cardiology consulted/Benign Chronic respiratory failure with hypoxia * Secondary to Long COVID in 2019 * on supplemental oxygen on home 3L [place] * will need outpt f/u with sleep medicine * will order CPAP here Cholelithiasis (accidental finding) - low fat diet, hydration - pt is asymptomatic - will f/u outpt Diabetes * Accu-Cheks a.c. HS * sliding scale insulin * hold oral diabetic medications * Hemoglobin A1c goal * Diabetic diet * Optimize Gabe inhibitors and statins. * Watch for hypoglycemia/hypoglycemic protocol ordered Insomnia * Resumed clonazepam and trazodone HX HLD: Resumed Statin Code status: Full code per patient DVT prophylaxis: eliqus Stress ulcer prophylaxis: Protonix 40 daily PT/OT notes: PT/OT Pending Disposition: Patient admitted with acute metabolic encephalopathy secondary to urinary tract infection, UA nitrate positive with bacteriuria and urinary complaints. Patient was started on IV Rocephin 2 g with mental improvement alert and oriented x3. Patient does have chronic respiratory failure secondary to long COVID on 3 L home oxygen. Rehab upon discharge DS: Summary Hospital Course Hospital Course: Patient is an 83-year-old female who presented to the emergency department with complaints of altered mental status her grandson.? As stated in the emergency department medical record grandson states patient is normally alert and oriented x3 however today she was only alert to self.? Patient's son states she typically gets it mental status when she is developing a urinary tract infection.? Patient does have past
--- NOTE | 2024-03-23 12:58 | PM.DS ---
DS: Admitting Diagnosis Discharge Date 03/24 Admitting Diagnosis altered mental status DS: Discharge Diagnosis Discharge Diagnosis (1) Urinary tract infection: Code(s): N39.0 - Urinary tract infection, site not specified Status: Acute (2) Ventricular bigeminy: Code(s): I49.8 - Other specified cardiac arrhythmias Status: Acute (3) Insomnia: Code(s): G47.00 - Insomnia, unspecified Status: Acute (4) Degenerative lumbar disc: Code(s): M51.36 - Other intervertebral disc degeneration, lumbar region Status: Acute (5) Acute metabolic encephalopathy: Code(s): G93.41 - Metabolic encephalopathy Status: Acute (6) Diabetes: Code(s): E11.9 - Type 2 diabetes mellitus without complications Status: Chronic (7) Chronic hypoxic respiratory failure, on home oxygen therapy: Code(s): J96.11 - Chronic respiratory failure with hypoxia; Z99.81 - Dependence on supplemental oxygen Status: Acute (8) CARMEN (acute kidney injury): Code(s): N17.9 - Acute kidney failure, unspecified Status: Acute Assessment and Plan: Final Dx: UTI, CARMEN, Chronic hypoxic respiratory failure, on home oxygen therapy, Other specified cardiac arrhythmias, Renal cyst, Cholelithiasis (accidental finding) Plan Metabolic encephalopathy secondary to UTI CT head no acute issues UA Nitrate + with bacteria- culture pending ceftriaxone 2g daily WBC improved to 8.2 03/23- wbc 7.4 CARMEN cr double from admission 03/20-0.9, 1.80 today will consult nephrology add 0.9 NS - avoid nephrotoxic drugs - on losartan- decreased in setting of Carmen- monitor- will need a f/u on cmp out/BP meds adjustment -eliquis was decreased per card 03/23- BUN 48, Cr 1.3 Ventricular bigeminy Resumed BB Cardiology consulted/Benign Chronic respiratory failure with hypoxia Secondary to Long COVID in 2019 on supplemental oxygen on home 3L [place] will need outpt f/u with sleep medicine will order CPAP here Cholelithiasis (accidental finding) - low fat diet, hydration - pt is asymptomatic - will f/u outpt Diabetes Accu-Cheks a.c. HS sliding scale insulin hold oral diabetic medications Hemoglobin A1c goal Diabetic diet Optimize Gabe inhibitors and statins. Watch for hypoglycemia/hypoglycemic protocol ordered Insomnia Resumed clonazepam and trazodone HX HLD: Resumed Statin Code status: Full code per patient DVT prophylaxis: eliqus Stress ulcer prophylaxis: Protonix 40 daily PT/OT notes: PT/OT Pending Disposition: Patient admitted with acute metabolic encephalopathy secondary to urinary tract infection, UA nitrate positive with bacteriuria and urinary complaints. Patient was started on IV Rocephin 2 g with mental improvement alert and oriented x3. Patient does have chronic respiratory failure secondary to long COVID on 3 L home oxygen. Rehab upon discharge DS: Summary Hospital Course Hospital Course: Patient is an 83-year-old female who presented to the emergency department with complaints of altered mental status her grandson.? As stated in the emergency department medical record grandson states patient is normally alert and oriented x3 however today she was only alert to self.? Patient's son states she typically gets it mental status when she is developing a urinary tract infection.? Patient does have past medical history diabetes, HLD, insomnia and DJD.? Initial findings in the emergency department showed a UA nitrate positive with bacteremia, WBC of 12.1, glucose of 227 otherwise all other labs unremarkable.? EKG did show ventricular bigeminy resumed patient's beta-todd on admission and the CT head with no acute issues.? Upon assessment this am patient was alert and oriented, knew name, location, , and the president stated she remembers coming to the ED last night.? Patient did report she wears supplemental oxygen at home 3L [place] for chronic re
--- NOTE | 2024-03-23 13:56 | P.PNIM_ITS ---
Progress Note: A&P Assessment and Plan (1) Urinary tract infection: Code(s): N39.0 - Urinary tract infection, site not specified Status: Acute (2) Ventricular bigeminy: Code(s): I49.8 - Other specified cardiac arrhythmias Status: Acute (3) Insomnia: Code(s): G47.00 - Insomnia, unspecified Status: Acute (4) Degenerative lumbar disc: Code(s): M51.36 - Other intervertebral disc degeneration, lumbar region Status: Acute (5) Acute metabolic encephalopathy: Code(s): G93.41 - Metabolic encephalopathy Status: Acute (6) Diabetes: Code(s): E11.9 - Type 2 diabetes mellitus without complications Status: Acute (7) Chronic hypoxic respiratory failure, on home oxygen therapy: Code(s): J96.11 - Chronic respiratory failure with hypoxia; Z99.81 - Dependence on supplemental oxygen Status: Acute (8) TARIQ (acute kidney injury): Code(s): N17.9 - Acute kidney failure, unspecified Status: Acute Assessment and Plan: Final Dx: UTI, TARIQ, Chronic hypoxic respiratory failure, on home oxygen therapy, Other specified cardiac arrhythmias (9) Cholelithiasis: Code(s): K80.20 - Calculus of gallbladder without cholecystitis without obstruction Status: Acute Assessment and Plan: accidental finding via renal UA. pt is asymptomatic. low fat diet and monitor for now (10) Renal cyst: Code(s): N28.1 - Cyst of kidney, acquired Status: Acute Plan Metabolic encephalopathy secondary to UTI * CT head no acute issues * UA Nitrate + with bacteria- culture pending * ceftriaxone 2g daily * WBC improved to 8.2 03/23- wbc 7.4 TARIQ * cr double from admission 03/20-0.9, 1.80 today * will consult nephrology * add 0.9 NS * - avoid nephrotoxic drugs * - on losartan- will continue * -eliquis was decreased per card 03/23- BUN 48, Cr 1.3 Ventricular bigeminy * Resumed BB * Cardiology consulted/Benign Chronic respiratory failure with hypoxia * Secondary to Long COVID in 2019 * on supplemental oxygen on home 3L [place] * will need outpt f/u with sleep medicine * will order CPAP here Diabetes * Accu-Cheks a.c. HS * sliding scale insulin * hold oral diabetic medications * Hemoglobin A1c goal * Diabetic diet * Optimize Gabe inhibitors and statins. * Watch for hypoglycemia/hypoglycemic protocol ordered Insomnia * Resumed clonazepam and trazodone HX HLD: Resumed Statin Code status: Full code per patient DVT prophylaxis: eliqus Stress ulcer prophylaxis: Protonix 40 daily PT/OT notes: PT/OT Pending Disposition: Patient admitted with acute metabolic encephalopathy secondary to urinary tract infection, UA nitrate positive with bacteriuria and urinary complaints. Patient was started on IV Rocephin 2 g with mental improvement alert and oriented x3. Patient does have chronic respiratory failure secondary to long COVID on 3 L home oxygen. Rehab upon discharge Subjective Date/time seen: 03/23/24 13:56 Interval history: Patient is an 83-year-old female who presented to the emergency department with complaints of altered mental status her grandson.? As stated in the emergency department medical record grandson states patient is normally alert and oriented x3 however today she was only alert to self.? Patient's son states she typically gets it mental status when she is developing a urinary tract infection.? Patient does have past medical hi
--- NOTE | 2024-03-23 13:56 | PM.IMPN ---
Progress Note: A&P Assessment and Plan (1) Urinary tract infection: Code(s): N39.0 - Urinary tract infection, site not specified Status: Acute (2) Ventricular bigeminy: Code(s): I49.8 - Other specified cardiac arrhythmias Status: Acute (3) Insomnia: Code(s): G47.00 - Insomnia, unspecified Status: Acute (4) Degenerative lumbar disc: Code(s): M51.36 - Other intervertebral disc degeneration, lumbar region Status: Acute (5) Acute metabolic encephalopathy: Code(s): G93.41 - Metabolic encephalopathy Status: Acute (6) Diabetes: Code(s): E11.9 - Type 2 diabetes mellitus without complications Status: Acute (7) Chronic hypoxic respiratory failure, on home oxygen therapy: Code(s): J96.11 - Chronic respiratory failure with hypoxia; Z99.81 - Dependence on supplemental oxygen Status: Acute (8) TARIQ (acute kidney injury): Code(s): N17.9 - Acute kidney failure, unspecified Status: Acute Assessment and Plan: Final Dx: UTI, TARIQ, Chronic hypoxic respiratory failure, on home oxygen therapy, Other specified cardiac arrhythmias (9) Cholelithiasis: Code(s): K80.20 - Calculus of gallbladder without cholecystitis without obstruction Status: Acute Assessment and Plan: accidental finding via renal UA. pt is asymptomatic. low fat diet and monitor for now (10) Renal cyst: Code(s): N28.1 - Cyst of kidney, acquired Status: Acute Plan Metabolic encephalopathy secondary to UTI CT head no acute issues UA Nitrate + with bacteria- culture pending ceftriaxone 2g daily WBC improved to 8.2 03/23- wbc 7.4 TARIQ cr double from admission 03/20-0.9, 1.80 today will consult nephrology add 0.9 NS - avoid nephrotoxic drugs - on losartan- will continue -eliquis was decreased per card 03/23- BUN 48, Cr 1.3 Ventricular bigeminy Resumed BB Cardiology consulted/Benign Chronic respiratory failure with hypoxia Secondary to Long COVID in 2019 on supplemental oxygen on home 3L [place] will need outpt f/u with sleep medicine will order CPAP here Diabetes Accu-Cheks a.c. HS sliding scale insulin hold oral diabetic medications Hemoglobin A1c goal Diabetic diet Optimize Gabe inhibitors and statins. Watch for hypoglycemia/hypoglycemic protocol ordered Insomnia Resumed clonazepam and trazodone HX HLD: Resumed Statin Code status: Full code per patient DVT prophylaxis: eliqus Stress ulcer prophylaxis: Protonix 40 daily PT/OT notes: PT/OT Pending Disposition: Patient admitted with acute metabolic encephalopathy secondary to urinary tract infection, UA nitrate positive with bacteriuria and urinary complaints. Patient was started on IV Rocephin 2 g with mental improvement alert and oriented x3. Patient does have chronic respiratory failure secondary to long COVID on 3 L home oxygen. Rehab upon discharge Subjective Date/time seen: 03/23/24 13:56 Interval history: Patient is an 83-year-old female who presented to the emergency department with complaints of altered mental status her grandson.? As stated in the emergency department medical record grandson states patient is normally alert and oriented x3 however today she was only alert to self.? Patient's son states she typically gets it mental status when she is developing a urinary tract infection.? Patient does have past medical history diabetes, HLD, insomnia and DJD.? Initial findings in the emergency department showed a UA nitrate positive with bacteremia, WBC of 12.1, glucose of 227 otherwise all other labs unremarkable.? EKG did show ventricular bigeminy resumed patient's beta-todd on admission and the CT head with no acute issues.? Upon assessment this am patient was alert and oriented, knew name, location, , and the president stated she remembers coming to the ED last night.? Patient did report she wears supplemental
[2024-03-23 17:09] LABS: Glucose Point of Care 104 mg/dl (65-105)
[2024-03-23] MEDS: cefTRIAXone 2 GM/NS 100 ML 2 GM/100 ML BAG IVPB (20:28)
[2024-03-23] MEDS: traZODone HCL 50 MG TABLET 200 MG PO (20:29)
[2024-03-23] MEDS: clonazePAM (*CRX) 0.5 MG TABLET 1 MG PO (20:29)
[2024-03-23] MEDS: METOPROLOL SUCCINATE EXT REL 25 MG TABCR PO (20:29)
[2024-03-23] MEDS: LORATADINE 10 MG TABLET PO (20:29)
[2024-03-23 22:23] LABS: Glucose Point of Care 140 mg/dl (65-105)
[2024-03-24] MEDS: oxyCODONE/ACETAMINOPHEN (*CRX) 10-325 MG TABLET 0.5 TAB PO ×3 (01:11→16:28)
[2024-03-24 05:39] LABS: Hematocrit 38.2 % (37.0-47.0); Hemoglobin 12.1 g/dL (12.0-15.0); Mean Corpuscular HGB Conc 31.7 g/dl (32-36); Mean Corpuscular Hemoglobin 30.8 pg (26-34); Mean Corpuscular Volume 97.2 fl (80-100); Mean Platelet Volume 11.2 fl (7.4-10.4); Platelet Count Result 179 k/mm3 (150-375); Red Blood Count 3.93 M/mm3 (4.2-5.4); White Blood Count 6.8 K/mm3 (4.5-10.0)
[2024-03-24 05:51] LABS: Alanine Aminotransferase 34 U/L (6-35); Albumin Level 3.7 g/dL (3.5-5.1); Alkaline Phosphatase 89 U/L (38-126); Anion Gap 9 mmol/L (4-12); Aspartate Amino Transferase 42 U/L (14-36); Bilirubin,Total 0.7 mg/dL (0.2-1.3); Blood Urea Nitrogen 28 mg/dL (7-17); Calcium 8.1 mg/dL (8.4-10.2); Carbon Dioxide 18 mmol/L (22-30); Chloride 112 mmol/L (98-107); Estimated Glomerular Filt Rate 60; Glucose 163 mg/dL (65-110); Potassium 4.1 mmol/L (3.4-5.0); Sodium 139 mmol/L (137-145)
[2024-03-24 06:00] VITALS: PULSE 76; RESP 18; TEMP 36.7; O2SAT 93
[2024-03-24 07:55] VITALS: BP 134/94
[2024-03-24 08:26] LABS: Glucose Point of Care 130 mg/dl (65-105)
[2024-03-24 08:30] VITALS: O2SAT 93
[2024-03-24] MEDS: PRAVASTATIN SODIUM 20 MG TABLET 40 MG PO (08:32)
[2024-03-24] MEDS: PANTOPRAZOLE 40 MG TABLET PO (08:32)
[2024-03-24] MEDS: polyethylene glycoL 3350 17 GM POWD.PACK PO (08:32)
[2024-03-24] MEDS: LEFLUNOMIDE 20 MG TABLET PO (08:32)
[2024-03-24] MEDS: DULoxetine HCL 60 MG CAPSULE.DR PO (08:32)
[2024-03-24] MEDS: APIXABAN 2.5 MG TABLET PO (08:32)
[2024-03-24 13:44] LABS: SARS-CoV-2 RNA PCR Negative (Negative)
[2024-03-24 13:53] LABS: Glucose Point of Care 156 mg/dl (65-105)
[2024-03-24 14:00] VITALS: PULSE 84; RESP 19; TEMP 36.5; O2SAT 92
[2024-03-24 16:28] VITALS: BP 158/94
== END 2024-03-24 18:30 | DRG 689 ==
LOC: ANHED 04:21 → ANH2MED 05:49
PROVIDERS: Internal Medicine Cardiovascular Disease; Internal Medicine Nephrology; Nurse Practitioner Family; Admitting Provider Internal Medicine; Emergency Provider Emergency Medicine; Visit Provider Nurse Practitioner
DX: N39.0 Urinary tract infection, site not specified (principal); G93.41 Metabolic encephalopathy; J96.11 Chronic respiratory failure with hypoxia; N17.9 Acute kidney failure, unspecified; U09.9 Post COVID-19 condition, unspecified; I10 Essential (primary) hypertension; I49.8 Other specified cardiac arrhythmias; I27.20 Pulmonary hypertension, unspecified; I35.0 Nonrheumatic aortic (valve) stenosis; E78.5 Hyperlipidemia, unspecified; E11.9 Type 2 diabetes mellitus without complications; M51.36 Other intervertebral disc degeneration, lumbar region; M19.90 Unspecified osteoarthritis, unspecified site; G47.33 Obstructive sleep apnea (adult) (pediatric); Z79.01 Long term (current) use of anticoagulants; Z99.81 Dependence on supplemental oxygen
CPT/HCPCS: 36415; 70450; 76775; 80053; 81001; 81050; 82550; 82570; 82948; 83605; 83735; 84156; 84300; 84443; 84484; 84540; 85025; 85027; 85610; 85730; 85999; 87077; 87086; 87088; 87186; 87635; 87637; 93005; 93306; 97110; 97161; 97165; 97530; 97535; A9270; J0696; J1815; J2270; J2405; J7030

== ENCOUNTER 2024-07-16 21:50 | Emergency (ER) | payer OTHER, SELFPAY ==
[2024-07-16 21:57] VITALS: BP 159/71; PULSE 98; RESP 15; TEMP 36.6; O2SAT 94
== END 2024-07-17 02:20 | disposition left against medical advice (07) ==
LOC: ANHED 07-17 01:32
DX: R10.9 Unspecified abdominal pain (principal)
CPT/HCPCS: 99199

== ENCOUNTER 2024-08-01 16:22 | Inpatient (IN) | payer OTHER, SELFPAY ==
--- NOTE | ~2024-08-01 | CT_ITS ---
EXAMINATION: CT brain wo con DATE: 08/01/2024 17:40 INDICATION: Weakness. Fall. TECHNIQUE: Computed tomography (CT) of the head was performed without intravenous contrast. The mA wa s adjusted according to patient size. Iterative reconstruction technique was employed. The dose-lengt h product was 605.33 mGy-cm. COMPARISON: Head CT 03/20/2024 FINDINGS: There are scattered areas of low attenuation in the cerebral white matter. There is no intr acranial hemorrhage, acute infarction, or abnormal intracranial mass lesion. The ventricles are herlinda l in size. The mastoid air cells are normal. There is a trace left mastoid effusion. The paranasal si nuses are clear. IMPRESSION: 1. Stable moderate nonspecific cerebral white matter disease, which likely represents chronic small v essel ischemic disease. Reviewed, dictated and finalized at location A. IMPRESSION: 1. Stable moderate nonspecific cerebral white matter disease, which likely repr esents chronic small vessel ischemic disease.
--- NOTE | ~2024-08-01 | CT_ITS ---
EXAMINATION: CT lumbar spine wo con DATE: 08/01/2024 17:41 INDICATION: Fall. TECHNIQUE: Computed tomography (CT) of the lumbar spine was performed without intravenous contrast. A utomated exposure control and iterative reconstruction technique were employed. The dose-length produ ct was 392.54 mGy-cm. COMPARISON: CT 10/28/2011. FINDINGS: There is an 18 mm mass in left adrenal gland measuring low attenuation, consistent with an adenoma. There is 14 degrees levoscoliosis of lumbar spine. There is 3 mm retrolisthesis of L1 on L2, L2 on L3, and L3 on L4. Vertebral body heights are normal. There is severely decreased disc height f rom T12-L1 through L4-L5 and mildly decreased disc height at L5-S1. There is vacuum disc phenomenon a t all levels. The following disc levels are specifically discussed: L1-L2: The disc is bulging. There is severe lateral facet joint osteoarthritis. There is moderate rig ht and mild left neural foraminal stenosis. There is mild central canal stenosis. L2-L3: The disc is bulging with superimposed left subarticular zone extrusion with 11 mm inferior ext ension. There is severe bilateral facet joint osteoarthritis. There is moderate bilateral neural fora kelsie stenosis. There is mild central canal stenosis. There is severe stenosis of left lateral recess and moderate stenosis of right lateral recess. L3-L4: The disc is bulging. There is severe bilateral facet joint osteoarthritis. There is severe rig ht and moderate left neural foraminal stenosis. There is mild central canal stenosis. L4-L5: The disc is bulging with superimposed right central extrusion with 16 mm superior extension. T here is severe lateral facet joint osteoarthritis. There is moderate right and severe left neural for aminal stenosis. There is mild central canal stenosis. There is severe stenosis of right lateral rece ss. L5-S1: The disc is bulging. There is severe bilateral facet joint osteoarthritis. There is mild right and moderate left neural foraminal stenosis. There is mild central canal stenosis. IMPRESSION: 1. No fracture. 2. Severe lumbar spondylosis. 3. Lumbar levoscoliosis. Reviewed, dictated and finalized at location A.
--- NOTE | ~2024-08-01 | US_ITS ---
EXAMINATION: US renal BI DATE: 08/06/2024 11:58 INDICATION: Decreased urine output. Elevated creatinine. TECHNIQUE: Multiple ultrasound grayscale images of the kidneys were obtained. COMPARISON: Abdomen and pelvis CT 08/01/2024 FINDINGS: The right kidney measures 9.1 x 4.2 x 5.0 cm. The left kidney measures 9.5 x 4.4 x 4.2 cm. The kidney s demonstrate normal parenchymal echogenicity. There is a 1.3 cm cyst in right kidney. There is no hy dronephrosis. The bladder is normal. IMPRESSION: 1. Normal kidney sizes. No hydronephrosis. Reviewed, dictated and finalized at location A.
--- NOTE | ~2024-08-01 | XR_ITS ---
EXAMINATION: XR hip RT 2V w AP pelvis DATE: 08/01/2024 17:43 INDICATION: Right hip pain. Fall. TECHNIQUE: An anteroposterior view of the pelvis and 2 views of right hip were obtained. COMPARISON: None. FINDINGS: There is lumbar levoscoliosis and severe spondylosis. No fracture. There is mild osteoarthr itis of the hips. IMPRESSION: 1. Mild osteoarthritis of the hips. Reviewed, dictated and finalized at location A.
--- NOTE | ~2024-08-01 | CT_ITS ---
EXAMINATION: CT cervical spine wo con DATE: 08/01/2024 17:40 INDICATION: Neck injury. Fall. TECHNIQUE: Computed tomography (CT) of the cervical spine was performed without intravenous contrast. Automated exposure control and iterative reconstruction technique were employed. The dose-length pro duct was 212.45 mGy-cm. COMPARISON: CT cervical spine 11/23/22 FINDINGS: There is 2 mm anterolisthesis of C7 on T1. Vertebral body heights are normal. There is mode rately decreased disc height at C3-C4, mildly decreased disc height at C4-C5, and severely decreased disc height at C5-C6 and C6-C7. The following disc levels are specifically discussed: C2-C3: There is mild right uncovertebral joint osteoarthritis. There is severe bilateral facet joint osteoarthritis. There is mild right neural foraminal stenosis. There is mild central canal stenosis. C3-C4: There is severe bilateral uncovertebral joint osteoarthritis. There is severe bilateral facet joint osteoarthritis. There is mild bilateral neural foraminal stenosis. There is mild central canal stenosis. C4-C5: There is moderate bilateral uncovertebral joint osteoarthritis. There is severe bilateral face t joint osteoarthritis. There is mild bilateral neural foraminal stenosis. There is mild central nadia l stenosis. C5-C6: There is severe bilateral uncovertebral joint osteoarthritis. There is severe right and mild l eft facet joint osteoarthritis. There is moderate bilateral neural foraminal stenosis. There is mild central canal stenosis. C6-C7: There is severe bilateral uncovertebral joint osteoarthritis. There is severe right and modera te left facet joint osteoarthritis. There is mild bilateral neural foraminal stenosis. There is mild central canal stenosis. C7-T1: There is no uncovertebral joint osteoarthritis. There is severe bilateral facet joint osteoart hritis. There is mild bilateral neural foraminal stenosis. There is no central canal stenosis. IMPRESSION: 1. No fracture. 2. Severe cervical spondylosis. Reviewed, dictated and finalized at location A.
--- NOTE | ~2024-08-01 | CT_ITS ---
EXAMINATION: CT abdomen pelvis w con DATE: 08/01/2024 21:27 INDICATION: Abdominal pain. Vomiting. TECHNIQUE: Computed tomography (CT) of the abdomen and pelvis was performed with 100 mL Omnipaque 350 intravenous contrast. Automated exposure control and iterative reconstruction technique were employe d. The dose-length product was 452.93 mGy-cm. COMPARISON: CT abdomen and pelvis 10/28/2011 FINDINGS: The visualized portions of the lung bases demonstrate mild atelectasis. No pleural effusion . The heart size is normal. No pericardial effusion. The liver and spleen are normal. The gallbladder is contracted. Right adrenal gland is normal. There is chronic thickening of left adrenal gland, lik trino benign. There is cortical thinning of the kidneys. There are cysts in the kidneys measuring up to 16 mm on the left. There are no dilated loops of bowel. There is diverticulosis of the colon without evidence of diverticulitis. The appendix is normal. There is calcified atherosclerosis of the aorta and many of the other arteries. There are no pathologically enlarged lymph nodes. There is no free in traperitoneal fluid. There is severe thoracic and lumbar spondylosis. IMPRESSION: 1. No etiology for the patient's symptoms. Reviewed, dictated and finalized at location A.
--- NOTE | ~2024-08-01 | MR_ITS ---
EXAMINATION: MR MRCP wo/w con/w 3D wo ind DATE: 08/05/2024 12:21 INDICATION: Pancreatitis TECHNIQUE: Magnetic resonance imaging (MRI) of the abdomen was performed without and with 15 mL Multi devon intravenous contrast. Sequences included coronal T2-weighted SS-FSE, coronal T2-weighted FS SS- FSE, coronal T2-weighted FS FIESTA, axial T2-weighted FS FIESTA, axial T2-weighted FIESTA, sagittal T 2-weighted SS-FSE, axial T1-weighted dual-echo FSPGR, axial T2-weighted SS-FSE, axial T1-weighted LAV A, axial T2-weighted STIR FSE. Thick-slab T2-weighted FRFSE-XL images were obtained for magnetic reso nance cholangiopancreatography (MRCP). Rotating maximum intensity projection 3-D reconstructions of t he volumetric data were created by the technologist. Postcontrast sequences included a time course of axial T1-weighted LAVA. COMPARISON: CT dated 08/01/2024 FINDINGS: ABDOMEN MRI: Borderline heart size. No pericardial effusion. There are small bilateral pleural effusions with depe ndent atelectasis in both lower lobes. There is periportal edema in the otherwise normal liver. Splee n and bilateral adrenal glands are normal. There are bilateral T2 hyperintense nonenhancing renal cys ts. There is prominent retroperitoneal edema in both the left and right upper quadrants including darek ng the pancreas which is likely related to reported pancreatitis. Pancreas appears otherwise normal w ith homogeneous pancreatic parenchymal enhancement with no evident necrosis or discrete peripancreati c fluid collections. There is marked edematous wall thickening of the nondilated gallbladder with no evident cholelithiasis. Visualized bowels are unremarkable with no obstruction. No pathologically enl arged abdominal or or upper pelvic lymphadenopathy. Minimal ascites scattered throughout the visualiz ed abdomen and pelvis. Mild thoracolumbar levocurvature with severe spondylosis. ABDOMEN MRCP: No intra or extrahepatic biliary ductal dilation. The common bile duct measures 3-4 mm maximal diamet er which is within normal limits. No evident choledocholithiasis. IMPRESSION: 1. No intra or extrahepatic ductal or ductal dilation or evident cholelithiasis/choledocholithiasis. 2. Marked edematous wall thickening of the gallbladder which is not dilated and which along with the mild periportal edema is likely related to acute interstitial pancreatitis which also likely accounts for the diffuse retroperitoneal edema and minimal ascites. 3. Small bilateral pleural effusions. Reviewed, dictated and finalized at location A. IMPRESSION: 1. No intra or extrahepatic ductal or ductal dilation or evident cholelithiasis /choledocholithiasis. 2. Marked edematous wall thickening of the gallbladder which is not dilated and which along with the mild periportal edema is likely related to acute intersti tial pancreatitis which also likely accounts for the diffuse retroperitoneal ed zena and minimal ascites. 3. Small bilateral pleural effusions.
[2024-08-01 16:46] VITALS: BP 139/96; PULSE 104; RESP 17; TEMP 36.4; O2SAT 93
--- NOTE | 2024-08-01 17:12 | ED.NAVMDI ---
HPI - Nausea/Vomiting/Diarrhea General Chief complaint: Nausea/Vomiting/Diarrhea <Karin Dumas PA-C - Last Filed: 08/06/24 17:42> Stated complaint: N/V, fall <Karin Dumas PA-C - Last Filed: 08/06/24 17:42> Time Seen by Provider: 08/01/24 17:12 <Karin Dumas PA-C - Last Filed: 08/06/24 17:42> Focused HPI: This is a 84 year old female that presents to the ER for decreased PO intake. Has not had much urine output and it is dark. Reports she has had vomiting and diarrhea. Reports she is currently on Macrobid for a UTI prescribed by her PCP. Reports she recently stopped taking Oxycodone suddenly about 5 days ago. She had been on it for years for chronic back pain. Reports burning epigastric pain. Denies fever, dysuria, hematuria. GENERAL: Elderly, well-nourished, and in no acute distress. HEAD: Normocephalic, atraumatic. CHEST: Clear to auscultation. ?No respiratory distress. HEART: Regular rate and rhythm.? NEURO: ?Alert and oriented x3. Patient screened in triage and initial orders placed.? ?Additional care and disposition to be based upon?diagnostic testing and treatment. <Karin Dumas PA-C - Last Filed: 08/06/24 17:42> History of Present Illness HPI Narrative: 84F presenting with vomiting, diarrhea. States that she was recently diagnosed with the UTI and has been taking Macrobid. Unfortunately she continues to have diffuse abdominal pain and vomiting. States she is able to keep a small amount of 7 up down. States that she recently stopped taking oxycodone for her chronic back pain as it did not seem to help. States that she has not had any for the last week. No further complaints. <Krystin Figueroa MD - Last Filed: 08/02/24 21:35> Related Data Home medications: Home Medications Medication Instructions Recorded Confirmed duloxetine 60 mg capsule,delayed 60 mg PO DAILY 03/20/24 08/02/24 release leflunomide 20 mg tablet 20 mg PO DAILY 03/20/24 08/02/24 metformin 500 mg tablet 500 mg PO BIDWM 03/20/24 08/02/24 metoprolol succinate 25 mg 25 mg PO HS 03/20/24 08/02/24 tablet,extended release 24 hr pravastatin 40 mg tablet 40 mg PO DAILY 03/20/24 08/02/24 trazodone 100 mg tablet 200 mg PO HS 03/20/24 08/02/24 clonazepam 0.5 mg tablet See Rx Instructions .Route .COMPLEX 08/02/24 08/02/24 fexofenadine 180 mg tablet 180 mg PO DAILY 08/02/24 08/02/24 losartan 100 mg tablet 100 mg PO DAILY 08/02/24 08/02/24 <Karin Dumas PA-C - Last Filed: 08/06/24 17:42> Allergies/Adverse reactions: Allergies Allergy/AdvReac Type Severity Reaction Status Date / Time No Known Allergies Allergy Mild Verified 11/23/22 15:11 <Karin Dumas PA-C - Last Filed: 08/06/24 17:42> Review of Systems Review of Systems: All systems reviewed & are unremarkable except as noted in HPI and below <Krystin Figueroa MD - Last Filed: 08/02/24 21:35> [facility] Past Medical History Medical History: Medical History (Updated 08/06/24 @ 17:42 by Karin Dumas PA-C) Degenerative lumbar disc Diabetes Elevated liver enzymes Insomnia Upper abdominal pain Ventricular bigeminy <Karin Dumas PA-C - Last Filed: 08/06/24 17:42> Family History Family History: Family History Sibling Dementia Father Acute myocardial infarction Mother Diabetes mellitus <Karin Dumas PA-C - Last Filed: 08/06/24 17:42> Social History Social History: Social History Smoking status: Never smoker Alcohol intake: never Substance use: never Do You Feel Safe in your Home?: Yes Lack of Transportation: No Lack of Food: Never True Current Housing: I Have Housing Concerned About Future Housing: No Difficulty Paying Gas/Electric Bills: No Difficulty Paying for Meds: No Currently Unemployed: No Education: Decline to Answer Difficulty w/ Childcare or F
--- NOTE | 2024-08-01 17:16 | ECG_ITS ---
Test Date: 2024-08-01 20:42:28 Measurements Intervals [place] Rate: 92 P: 66 IN: 140 QRS: 260 QRSD: 92 T: -12 QT: 365 QTc: 453 Interpretive Statements SINUS RHYTHM INCOMPLETE RIGHT BUNDLE BRANCH BLOCK [90+ ms QRS DURATION, TERMINAL R IN V1/V2, 40+ ms S IN I/aVL/V4/V5/V6] POSSIBLE RIGHT VENTRICULAR HYPERTROPHY [SOME/ALL OF: PROMINENT R IN V1, LATE TRANSITION, RAD, SY, SSS] POSSIBLE ANTERIOR MYOCARDIAL INFARCTION , OF INDETERMINATE AGE [30 ms Q WAVE IN V3/V4, OR R < 0.2 mV IN V4] No previous ECG available for comparison Electronically Signed On 08-01-2024 21:43:53 CDT by David Garcia M.D.
[2024-08-01] MEDS: SODIUM CHLORIDE 0.9% IV 1,000 ML 999 ML IV CONT ×2 (20:36→21:35)
[2024-08-01 20:48] LABS: Alanine Aminotransferase 79 U/L (6-35); Albumin Level 3.6 g/dL (3.5-5.1); Alkaline Phosphatase 175 U/L (38-126); Anion Gap 8 mmol/L (4-12); Aspartate Amino Transferase 52 U/L (14-36); Basophils Absolute Auto 0.1 K/mm3 (0.0-0.1); Basophils Percent Auto 0.7 % (0.2-1.2); Bilirubin,Total 1.2 mg/dL (0.2-1.3); Blood Urea Nitrogen 27 mg/dL (7-17); Calcium 9.2 mg/dL (8.4-10.2); Carbon Dioxide 23 mmol/L (22-30); Chloride 102 mmol/L (98-107); Eosinophils Absolute Auto 0.3 K/mm3 (0-0.3); Eosinophils Percent Auto 3.2 % (0-4.4); Estimated CRCL calculation 34 ml/min; Estimated Glomerular Filt Rate 48; Glucose 241 mg/dL (65-110); Hematocrit 37.2 % (37.0-47.0); Hemoglobin 12.5 g/dL (12.0-15.0); Immature Granulocyte Absolute 0.09 K/mm3 (0.00-0.031); Lipase 1000 U/L (23-300); Lymphocytes Absolute Auto 1.07 K/mm3 (0.9-3.2); Lymphocytes Percent Auto 11.4 % (18.3-44.2); Mean Corpuscular HGB Conc 33.6 g/dl (32-36); Mean Corpuscular Hemoglobin 31.4 pg (26-34); Mean Corpuscular Volume 93.5 fl (80-100); Mean Platelet Volume 12.4 fl (7.4-10.4); Monocytes Absolute Auto 0.9 K/mm3 (0.1-0.6); Monocytes Percent Auto 9.8 % (2.6-8.5); Neutrophils Absolute Auto 6.9 K/mm3 (1.3-6.7); Neutrophils Percent Auto 73.9 % (45.5-73.1); Platelet Count Result 207 k/mm3 (150-375); Potassium 4.1 mmol/L (3.4-5.0); Red Blood Count 3.98 M/mm3 (4.2-5.4); Red Cell Distribution Width 14.3 % (11.5-14.5); Sodium 133 mmol/L (137-145); White Blood Count 9.4 K/mm3 (4.5-10.0)
[2024-08-01 21:03] LABS: Troponin I 0.038 ng/mL (0.000-0.034)
[2024-08-01 21:12] LABS: Add Urine Microscopic? YES; Appearance Urine Clear (Clear); Bacteria Urine None Seen /hpf; Bilirubin Urine Negative (Negative); Blood Urine Negative (Negative); Color Urine Dark Yellow (Yellow); Glucose Urine UA 2+ mg/dL (Negative); Ketones Urine Negative (Negative); Leukocyte Esterase Ur Negative LEU/UL (Negative); Nitrate Urine Negative (Negative); Protein Urine 3+ mg/dL (Negative); RBC Urine 0-2 /hpf (0-2); Specific Grav Ur 1.021 (1.001-1.035); Squamous Epithelial Cell Urine None Seen /hpf (Few); Urobilinogen Urine 0.2 mg/dL (<2.0); WBC Urine 0-5 /hpf (0-3)
[2024-08-01] MEDS: MORPHINE SULFATE (*CRX) 4 MG/ML INJ IV PUSH (21:34)
[2024-08-01] MEDS: ONDANSETRON INJ 4 MG/2 ML VIAL IV PUSH (21:34)
--- NOTE | 2024-08-01 22:01 | PM.IMHP ---
H&P: HPI History of Present Illness Date/Time: 08/01/24 22:01 Chief Complaint: Abdomen pain nausea vomiting Narrative: Patient is a poor historian, history is taken from patient and patient's son at bedside in the ER 84 years old lady with history of hypertension, hyperlipidemia, diabetes, history of PE CKD stage 3, anxiety, present ED with a chief complaint of abdomen pain nausea vomiting. Patient has been having abdomen pain in past previous, getting worse in past few more days, associated with nausea vomiting, patient has mid abdomen pain, radiating to the back. Patient took the oxycodone that for chronic back pain and home, but abdomen pain still not tolerable. Patient was recently treated for UTI. Patient also has general weakness, patient slipped off the chair fell on the floor yesterday hitting head. Patient denies loss of consciousness, focal weakness, vision change, abnormal sensation. Patient patient also denies chest pain, shortness breath, cough, palpitation, dysuria. Patient brought to ED for evaluation treatment. Upon arrival in ED, patient has uncontrolled hypertension, tachycardia tachypnea, CBC unremarkable chemistry showed hyponatremia 133, elevated BUN creatinine ratio 23/1.10, lipase 1000, troponin moderate high 0.038, EKG shows sinus rhythm no specific ST T-wave changes, urinalysis showed no pyuria CT scan showed no acute intra-abdominal issues Review of Systems Review of Systems: ROS negative except above PMFSH Past Medical History Medical History Degenerative lumbar disc Diabetes Insomnia Ventricular bigeminy Family History Family History Sibling Dementia Father Acute myocardial infarction Mother Diabetes mellitus Social History Social History Smoking status: Never smoker Alcohol intake: never Substance use: never Do You Feel Safe in your Home?: Yes Lack of Transportation: No Lack of Food: Never True Current Housing: I Have Housing Concerned About Future Housing: No Difficulty Paying Gas/Electric Bills: No Difficulty Paying for Meds: No Currently Unemployed: No Education: High School Diploma/GED Difficulty w/ Childcare or Family Care: No Spiritual care concerns: No Meds Home Medications and Allergies Home Medications Medication Instructions Recorded Confirmed Type duloxetine 60 mg capsule,delayed 60 mg PO DAILY 03/20/24 03/20/24 History release fexofenadine 30 mg tablet 60 mg PO DAILY 03/20/24 03/20/24 History leflunomide 20 mg tablet 20 mg PO DAILY 03/20/24 03/20/24 History metformin 500 mg tablet 500 mg PO BID 03/20/24 03/20/24 History metoprolol succinate 25 mg 25 mg PO HS 03/20/24 03/20/24 History tablet,extended release 24 hr pravastatin 40 mg tablet 40 mg PO DAILY 03/20/24 03/20/24 History trazodone 100 mg tablet 200 mg PO HS 03/20/24 03/20/24 History apixaban 2.5 mg tablet (Eliquis) 2.5 mg PO Q12HR #60 tabs 03/24/24 Rx losartan 50 mg tablet (Cozaar) 50 mg PO DAILY #60 tabs 03/24/24 Rx nitrofurantoin 100 mg PO Q12H 3 days #6 caps 03/24/24 Rx monohydrate/macrocrystals 100 mg capsule (Macrobid) clonazepam 1 mg tablet 1 mg PO QHS #45 tabs 03/26/24 Rx Allergies Allergy/AdvReac Type Severity Reaction Status Date / Time No Known Allergies Allergy Mild Verified 11/23/22 15:11 Vital Signs Vital Signs - 24 hr 08/01/24 16:46 Temperature 97.5 F L Pulse Rate 104 H Respiratory Rate 17 Blood Pressure 139/96 H Pulse Oximetry 93 Oxygen Delivery Nasal Cannula Oxygen Flow Rate 3 Exam Narrative: GENERAL: Pleasant, in no acute distress. Well-nourished. - EYES: EOMI. Anicteric. - HENT: Dry mucous membranes. - LUNGS: Clear to auscultation bilaterally, no wheezing, rhonchi, or rales. - CARDIOVASCULAR: Regular rate and rhythm. No murmur. No JV
[2024-08-01 22:50] VITALS: PULSE 86
[2024-08-01] MEDS: METOPROLOL TARTRATE 25 MG TABLET PO (22:50)
--- NOTE | 2024-08-01 23:20 | PC.NURSE ---
This RN assumed care of pt after receiving report from FILOMENA King
--- NOTE | 2024-08-01 23:44 | PM.IMHP ---
H&P: HPI History of Present Illness Date/Time: 08/01/24 23:44 [facility] Past Medical History Medical History Degenerative lumbar disc Diabetes Insomnia Ventricular bigeminy Family History Family History Sibling Dementia Father Acute myocardial infarction Mother Diabetes mellitus Social History Social History Smoking status: Never smoker Alcohol intake: never Substance use: never Do You Feel Safe in your Home?: Yes Lack of Transportation: No Lack of Food: Never True Current Housing: I Have Housing Concerned About Future Housing: No Difficulty Paying Gas/Electric Bills: No Difficulty Paying for Meds: No Currently Unemployed: No Education: High School Diploma/GED Difficulty w/ Childcare or Family Care: No Spiritual care concerns: No Meds Home Medications and Allergies Home Medications Medication Instructions Recorded Confirmed Type duloxetine 60 mg capsule,delayed 60 mg PO DAILY 03/20/24 03/20/24 History release fexofenadine 30 mg tablet 60 mg PO DAILY 03/20/24 03/20/24 History leflunomide 20 mg tablet 20 mg PO DAILY 03/20/24 03/20/24 History metformin 500 mg tablet 500 mg PO BID 03/20/24 03/20/24 History metoprolol succinate 25 mg 25 mg PO HS 03/20/24 03/20/24 History tablet,extended release 24 hr pravastatin 40 mg tablet 40 mg PO DAILY 03/20/24 03/20/24 History trazodone 100 mg tablet 200 mg PO HS 03/20/24 03/20/24 History apixaban 2.5 mg tablet (Eliquis) 2.5 mg PO Q12HR #60 tabs 03/24/24 Rx losartan 50 mg tablet (Cozaar) 50 mg PO DAILY #60 tabs 03/24/24 Rx nitrofurantoin 100 mg PO Q12H 3 days #6 caps 03/24/24 Rx monohydrate/macrocrystals 100 mg capsule (Macrobid) clonazepam 1 mg tablet 1 mg PO QHS #45 tabs 03/26/24 Rx Allergies Allergy/AdvReac Type Severity Reaction Status Date / Time No Known Allergies Allergy Mild Verified 11/23/22 15:11 Vital Signs Vital Signs - 24 hr 08/01/24 16:46 08/01/24 22:50 Temperature 97.5 F L Pulse Rate 104 H 86 Respiratory Rate 17 Blood Pressure 139/96 H Pulse Oximetry 93 Oxygen Delivery Nasal Cannula Oxygen Flow Rate 3 H&P: Results Labs Labs: Short CBC 08/01/24 Range/Units 20:30 WBC 9.4 (4.5-10.0) K/mm3 Hgb 12.5 (12.0-15.0) g/dL Hct 37.2 (37.0-47.0) % Plt Count 207 (150-375) k/mm3 BMP 08/01/24 08/01/24 08/01/24 20:30 20:30 20:30 Sodium Cancelled 133 L Potassium Cancelled 4.1 Chloride Cancelled Carbon Dioxide BUN Creatinine Glucose Calcium 08/01/24 08/01/24 08/01/24 20:30 20:30 20:30 Sodium Potassium Chloride 102 Carbon Dioxide Cancelled 23 BUN Cancelled 27 H Creatinine Cancelled Glucose Calcium 08/01/24 08/01/24 08/01/24 20:30 20:30 20:30 Sodium Potassium Chloride Carbon Dioxide BUN Creatinine 1.10 H Glucose Cancelled 241 H Calcium Cancelled 9.2 Cardiac Enzymes 08/01/24 Range/Units 20:30 Troponin I 0.038 H* (0.000-0.034) ng/mL Liver Function 08/01/24 08/01/24 08/01/24 Range/Units 20:30 20:30 20:30 Total Bilirubin Cancelled 1.2 AST Cancelled 52 H ALT Cancelled Alkaline Phosphatase Albumin 08/01/24 08/01/24 08/01/24 Range/Units 20:30 20:30 20:30 Total Bilirubin AST ALT 79 H Alkaline Phosphatase Cancelled 175 H Albumin Cancelled 3.6 Urine 08/01/24 Range/Units 20:59 Urine Color Dark yellow (Yellow) Urine Appearance Clear (Clear) Urine pH 6.0 (5.0-9.0) Ur Specific [place] 1.021 (1.001-1.035) Urine Protein 3+ H (Negative) mg/dL Urine Glucose (UA) 2+ H (Negative) mg/dL Assessment and Plan Assessment and plan (1) Alcohol withdrawal syndrome: Code(s): F10.939 - Alcohol u
[2024-08-02] VITALS (20 sets, daily range): BP systolic 108–160; BP diastolic 57–89; PULSE 54–91; RESP 12–22; TEMP 36.3–36.6; O2SAT 90–96; BMI 23.7
--- NOTE | 2024-08-02 00:04 | ECG_ITS ---
Test Date: 2024-08-02 00:09:22 Measurements Intervals [place] Rate: 84 P: 58 IA: 134 QRS: 261 QRSD: 93 T: -24 QT: 388 QTc: 461 Interpretive Statements SINUS RHYTHM POSSIBLE LEFT ATRIAL ENLARGEMENT [-0.1mV P WAVE IN V1/V2] INCOMPLETE RIGHT BUNDLE BRANCH BLOCK [90+ ms QRS DURATION, TERMINAL R IN V1/V2, 40+ ms S IN I/aVL/V4/V5/V6] POSSIBLE RIGHT VENTRICULAR HYPERTROPHY [SOME/ALL OF: PROMINENT R IN V1, LATE TRANSITION, RAD, SY, SSS] POSSIBLE ANTERIOR MYOCARDIAL INFARCTION , OF INDETERMINATE AGE [30 ms Q WAVE IN V3/V4, OR R < 0.2 mV IN V4] Compared to ECG 08/01/2024 20:42:28 No significant changes Electronically Signed On 08-02-2024 12:03:30 CDT by David Garcia M.D.
[2024-08-02 00:34] LABS: Troponin I 0.054 ng/mL (0.000-0.034)
[2024-08-02 00:44] LABS: Influenza A QL RT-PCR Negative (Negative); Influenza B QL RT-PCR Negative (Negative); RSV RNA, RT-PCR Negative (Negative); SARS-CoV-2 RNA PCR Negative (Negative)
[2024-08-02] MEDS: traZODone HCL 50 MG TABLET 100 MG PO ×2 (01:03→20:43)
[2024-08-02] MEDS: SODIUM CHLORIDE 0.9% IV 1,000 ML 100 ML IV CONT ×2 (01:03→18:21)
[2024-08-02] MEDS: APIXABAN 2.5 MG TABLET PO ×3 (01:04→20:43)
[2024-08-02] MEDS: HYDROmorphone HCL INJ (*CRX) 1 MG/ML SYR 0.5 MG IV PUSH ×2 (01:14→17:03)
--- NOTE | 2024-08-02 01:32 | PC.NURSE ---
This patient, Sayra Glass, was admitted to IMU Room 207-01 at 0019. Patient/family oriented to hospital policies and general routines including ID bracelet, bed and alarms, visiting hours, pain management, procedures, bathroom and other care routines, personal items, smoking policy, room service/diet, and visiting hours. Information on how to activate the Rapid Response Team has been discussed. Patient/Family are encouraged to report perceived risks to care and to ask questions if they do not understand what they are told or what they should do.
[2024-08-02 02:03] LABS: Troponin I 0.053 ng/mL (0.000-0.034)
[2024-08-02 08:06] LABS: Glucose Point of Care 145 mg/dl (65-105)
[2024-08-02] MEDS: METOPROLOL TARTRATE 25 MG TABLET PO ×2 (09:28→20:43)
[2024-08-02] MEDS: amLODIPine BESYLATE 5 MG TABLET PO (09:28)
[2024-08-02] MEDS: oxyCODONE/ACETAMINOPHEN (*CRX) 10-325 MG TABLET 1 TAB PO (09:35)
--- NOTE | 2024-08-02 15:04 | PM.IMPN ---
Progress Note: A&P Assessment and Plan (1) Alcohol withdrawal syndrome: Code(s): F10.939 - Alcohol use, unspecified with withdrawal, unspecified Status: Acute (2) Uncontrolled type 2 diabetes mellitus: Status: Acute Plan Acute pancreatitis Patient has been having mid abdomen pain radiating to the back pain about 2 weeks, getting worse in past few days, patient's nausea vomiting, also has loose stool continue iv fluids watch lipase levels daily order lipid panel May advance diet tomorrow if pain is tolerable Start Percocet and Dilaudid p.r.n. for pain management Patient is on Zofran p.r.n. for nausea vomiting Pancreatitis - possibly related to abx or DM meds or withdrawing off her pain meds pt does not drink alcholol Essential hypertension Start amlodipine 5 mg daily p.o., metoprolol 25 mg b.i.d. p.o. History of PE Patient denies shortness of breaths Continue Eliquis 2.5 mg b.i.d. p.o. Elevated troponin Patient no history of CAD Possible demand ischemia Morning high troponin, EKG shows sinus rhythm no specific ST-T changes Follow serial troponin Telemetry monitoring Patient is on Eliquis 2.5 mg b.i.d. p.o. General weakness, fall Possible due to dehydration and poor intake Consult PT OT toddler caregiver for evaluation and assisting placement Anxiety Continue trazodone 100 mg bedtime Subjective Date/time seen: 08/02/24 15:04 Interval history: 84 years old lady with history of hypertension, hyperlipidemia, diabetes, history of PE CKD stage 3, anxiety, present ED with a chief complaint of abdomen pain nausea vomiting. Patient has been having abdomen pain in past previous, getting worse in past few more days, associated with nausea vomiting, patient has mid abdomen pain, radiating to the back. Pt admitted for pancreatitis watch lipase levels keep npo today with ice chips and meds Review of Systems Review of Systems: ongoing abdominal pains Exam Narrative: -GENERAL: Pleasant - LUNGS: Clear to auscultation bilaterally, no wheezing, rhonchi, or rales. - CARDIOVASCULAR: Regular rate and rhythm. No murmur. No JVD. - ABDOMEN: Soft, middle abdominal tender and non-distended. No palpable masses. - EXTREMITIES: No edema. Peripheral pulses 2+. Non-tender. - NEUROLOGIC: No focal neurological deficits. CN II-XII grossly intact. - PSYCHIATRIC: Awake, Alert and oriented x 3. Appropriate mood and affect. General weakness Objective Data Vital Signs Vital Signs: Vital Signs - 24 hr 08/01/24 16:46 08/01/24 22:50 08/02/24 00:20 Temperature 36.4 C L 36.4 C Pulse Rate 104 H 86 88 Respiratory Rate 17 22 H Blood Pressure 139/96 H 154/89 H Pulse Oximetry 93 93 Oxygen Delivery Nasal Cannula Oxygen Flow Rate 3 08/02/24 02:00 08/02/24 00:26 08/02/24 00:45 Temperature Pulse Rate 60 91 Respiratory Rate Blood Pressure Pulse Oximetry 93 Oxygen Delivery Nasal Cannula Oxygen Flow Rate 3 08/02/24 04:00 08/02/24 04:00 08/02/24 03:50 Temperature 36.4 C Pulse Rate 64 67 Respiratory Rate 22 H Blood Pressure 108/67 Pulse Oximetry 91 91 Oxygen Delivery Nasal Cannula Oxygen Flow Rate 3 08/02/24 06:00 08/02/24 08:00 08/02/24 09:28 Temperature 36.6 C Pulse Rate 62 70 70 Respiratory Rate 12 Blood Pressure 127/73 Pulse Oximetry 95 Oxygen Delivery Oxygen Flow Rate 08/02/24 12:00 08/02/24 08:00 08/02/24 10:00 Temperature 36.3 C L Pulse Rate 59 L 66 64 Respiratory Rate 12 Blood Pressure 119/66 Pulse Oximetry 92 Oxygen Delivery Oxygen Flow Rate 08/02/24 12:00 08/02/24 08:00 08/02/24 12:00 Temperature Pulse Rate 54 L Respiratory Rate Blood Pressure Pulse Oximetry 95 92 Oxygen Delivery Nasal Cannula Nasal Cannula Oxygen Flow Rate 3 3 08/02/24 14:00 Temperature Pulse Rate 63 Respiratory Rate Blood Pressure Pulse Oximetry Oxygen Delivery Oxygen Flow Rate
[2024-08-02 15:58] LABS: Glucose Point of Care 139 mg/dl (65-105)
--- NOTE | 2024-08-02 17:29 | PC.NURSE ---
This patient, Sayra Glass, was transferred to [facility] on 08/02/24 at 1709. Personal belongings sent with patient. Report given to [place]. Appropriate documentation sent with patient.
[2024-08-02] MEDS: ACETAMINOPHEN 325 MG TABLET 650 MG PO (18:20)
[2024-08-02] MEDS: clonazePAM (*CRX) 0.5 MG TABLET 1 MG PO (22:06)
[2024-08-02 23:06] LABS: Glucose Point of Care 98 mg/dl (65-105)
[2024-08-03] VITALS (9 sets, daily range): BP systolic 133–172; BP diastolic 68–99; PULSE 60–75; RESP 16–20; TEMP 36.1–36.6; O2SAT 91–95
[2024-08-03] MEDS: MICONAZOLE NITRATE 2% CREAM 30 GM TUBE 1 APPLIC TOPICAL ×3 (04:03→21:22)
[2024-08-03] MEDS: ACETAMINOPHEN 325 MG TABLET 650 MG PO ×3 (04:04→21:20)
[2024-08-03] MEDS: SODIUM CHLORIDE 0.9% IV 1,000 ML 100 ML IV CONT ×2 (04:06→15:39)
[2024-08-03 05:57] LABS: Anion Gap 8 mmol/L (4-12); Blood Urea Nitrogen 29 mg/dL (7-17); Calcium 8.1 mg/dL (8.4-10.2); Carbon Dioxide 18 mmol/L (22-30); Chloride 110 mmol/L (98-107); Estimated CRCL calculation 37 ml/min; Estimated Glomerular Filt Rate 53; Glucose 90 mg/dL (65-110); Lipase 354 U/L (23-300); Potassium 4.3 mmol/L (3.4-5.0); Sodium 136 mmol/L (137-145)
--- NOTE | 2024-08-03 06:53 | PM.IMPN ---
Progress Note: A&P Assessment and Plan (1) Acute pancreatitis: Code(s): K85.90 - Acute pancreatitis without necrosis or infection, unspecified Status: Acute Assessment and Plan: Patient has been having mid abdomen pain radiating to the back for approximately 2 weeks with associated nausea/vomiting and loose stools - lipase 1000 on admission, downtrending. 354 on am labs. - CT abdomen/pelvis: no acute intra-abdominal issues - Unclear etiology, however could be related to her diabetes or pain medication - antiemetics - analgesics: Percocet and Dilaudid - diet: clear liquid diet advance as tolerated - Gentle IV fluid resuscitation - Monitor vital signs, I&Os, and patient is a fall risk - Monitor serum electrolytes and CBC (2) Elevated troponin: Code(s): R79.89 - Other specified abnormal findings of blood chemistry Status: Acute Assessment and Plan: Patient no history of CAD. Likely demand ischemia possibly related to patients hypertension - EKG on admission shows sinus rhythm no specific ST-T changes - Troponin was 0.038 on admission > 0.054 > 0.053 > 0.079 - Repeat EKG unchanged - Telemetry monitoring - Continue home Eliquis 2.5 mg b.i.d. p.o. Spoke with cardiology and since patient is not experiencing chest pain there is no true concern for ACS and this is likely secondary to demand ischemia as previously believed. (3) Fall: Code(s): W19.XXXA - Unspecified fall, initial encounter Status: Acute Assessment and Plan: Per chart review, patient slipped out of her chair onto the floor hitting her head. She denies loss of consciousness. Possible due to pain, dehydration and/or poor intake - Head CT: Stable moderate nonspecific cerebral white matter disease, which likely represents chronic small vessel ischemic disease. - C spine CT: No fracture. Severe cervical spondylosis. - Lumbar CT: No fracture. Severe lumbar spondylosis.Lumbar levoscoliosis. - Hip/pelvis XR: Mild osteoarthritis of the hips. - Consult PT OT animal caretaker supervisor for evaluation and assisting placement (4) Uncontrolled hypertension: Code(s): I10 - Essential (primary) hypertension Status: Acute Assessment and Plan: Chronic, uncontrolled on home medications. - continue home losartan 100 mg daily and metoprolol 25 mg daily - started on amlodipine 5 mg daily - monitor (5) Uncontrolled type 2 diabetes mellitus: Status: Acute Assessment and Plan: - hypoglycemia protocol - POC blood glucose ACHS - home medication - metformin 500 mg BIDWM - correct regimen ordered - low dose TIDWM (6) CKD stage 3 due to type 2 diabetes mellitus: Code(s): E11.22 - Type 2 diabetes mellitus with diabetic chronic kidney disease; N18.30 - Chronic kidney disease, stage 3 unspecified Status: Acute Assessment and Plan: BUN/Cr 27/1.10 with eGFR 48 on admission. Appears to be at baseline. - Monitor - Avoid nephrotoxic medications - Renally dose medications Time Spent With Patient Time with patient: 25 - 35 minutes Subjective Date/time seen: 08/03/24 06:53 Interval history: 84 year old female with past medical history of hypertension, hyperlipidemia, diabetes, CKD, anxiety, and history of PE presents to the hospital for abdominal pain with associated nausea/vomiting and loose stools. 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 Patient is pleasant lying comfortably in bed. She continues to have slight nausea with current diet. She denies vomiting and abdominal pain. Will continue to advance diet as tolerated. Patient had an elevated troponin on am labs. She continues to deny chest pain and EKG is unchanged. Spoke with cardiology and since patient is not experiencing chest pain there is no true concern for ACS and this is likely secondary to demand ischemia as previously believed.
[2024-08-03 06:58] LABS: Basophils Absolute Auto 0.1 K/mm3 (0.0-0.1); Basophils Percent Auto 1.1 % (0.2-1.2); Eosinophils Absolute Auto 0.6 K/mm3 (0-0.3); Eosinophils Percent Auto 6.4 % (0-4.4); Hematocrit 37.8 % (37.0-47.0); Hemoglobin 11.9 g/dL (12.0-15.0); Immature Granulocyte Absolute 0.11 K/mm3 (0.00-0.031); Immature Granulocyte Percent A 1.2 % (0-0.5); Lymphocytes Absolute Auto 0.81 K/mm3 (0.9-3.2); Lymphocytes Percent Auto 8.8 % (18.3-44.2); Mean Corpuscular HGB Conc 31.5 g/dl (32-36); Mean Corpuscular Hemoglobin 31.3 pg (26-34); Mean Corpuscular Volume 99.5 fl (80-100); Mean Platelet Volume 12.4 fl (7.4-10.4); Monocytes Percent Auto 10.9 % (2.6-8.5); Neutrophils Absolute Auto 6.6 K/mm3 (1.3-6.7); Neutrophils Percent Auto 71.6 % (45.5-73.1); Platelet Count Result 204 k/mm3 (150-375); Red Cell Distribution Width 15.1 % (11.5-14.5); White Blood Count 9.3 K/mm3 (4.5-10.0)
[2024-08-03 07:28] LABS: Cholesterol 106 mg/dL (0-200); HDL Direct 38 mg/dL; Triglycerides 161 mg/dL (<150)
[2024-08-03 07:30] LABS: Troponin I 0.079 ng/mL (0.000-0.034)
--- NOTE | 2024-08-03 07:36 | ECG_ITS ---
Test Date: 2024-08-03 07:50:39 Measurements Intervals Lewis Rate: 71 P: 49 WV: 134 QRS: -76 QRSD: 96 T: -17 QT: 414 QTc: 452 Interpretive Statements SINUS RHYTHM WITH SINUS ARRHYTHMIA POSSIBLE LEFT ATRIAL ENLARGEMENT [-0.1mV P WAVE IN V1/V2] INCOMPLETE RIGHT BUNDLE BRANCH BLOCK [90+ ms QRS DURATION, TERMINAL R IN V1/V2, 40+ ms S IN I/aVL/V4/V5/V6] LEFT ANTERIOR FASCICULAR BLOCK [QRS AXIS <= -45, QR IN I, RS IN II] POSSIBLE ANTERIOR MYOCARDIAL INFARCTION [30 ms Q WAVE IN V3/V4, OR R < 0.2 mV IN V4], PROBABLY OLD Compared to ECG 08/02/2024 00:09:22 Left anterior fascicular block now present Myocardial infarct finding still present Electronically Signed On 08-03-2024 10:41:51 CDT by David Garcia M.D.
[2024-08-03 07:38] LABS: LDL Cholesterol Direct 33 mg/dL
[2024-08-03 08:10] LABS: Glucose Point of Care 96 mg/dl (65-105)
[2024-08-03] MEDS: amLODIPine BESYLATE 5 MG TABLET PO (08:39)
[2024-08-03] MEDS: LOSARTAN POTASSIUM 100 MG TABLET PO (08:39)
[2024-08-03] MEDS: LEFLUNOMIDE 20 MG TABLET PO (08:39)
[2024-08-03] MEDS: APIXABAN 2.5 MG TABLET PO ×2 (08:39→21:21)
[2024-08-03] MEDS: PRAVASTATIN SODIUM 20 MG TABLET 40 MG PO (08:39)
[2024-08-03] MEDS: DULoxetine HCL 60 MG CAPSULE.DR PO (08:40)
[2024-08-03] MEDS: METOPROLOL TARTRATE 25 MG TABLET PO ×2 (08:40→21:22)
[2024-08-03 12:00] LABS: Glucose Point of Care 292 mg/dl (65-105)
[2024-08-03] MEDS: INSULIN ASPART (*BKC) 100 UNITS/ML SUB-Q ×2 (12:34→17:19)
[2024-08-03] MEDS: oxyCODONE/ACETAMINOPHEN (*CRX) 10-325 MG TABLET 1 TAB PO (15:39)
[2024-08-03 16:53] LABS: Glucose Point of Care 218 mg/dl (65-105)
[2024-08-03 18:07] LABS: Glucose Point of Care 173 mg/dl (65-105)
[2024-08-03 20:49] LABS: Glucose Point of Care 256 mg/dl (65-105)
[2024-08-03] MEDS: clonazePAM (*CRX) 0.5 MG TABLET 1 MG PO (21:20)
[2024-08-03] MEDS: traZODone HCL 50 MG TABLET 100 MG PO (21:21)
[2024-08-04] VITALS (11 sets, daily range): BP systolic 119–149; BP diastolic 56–79; PULSE 60–100; RESP 16–20; TEMP 36.3–36.5; O2SAT 90–98
[2024-08-04] MEDS: ONDANSETRON INJ 4 MG/2 ML VIAL IV PUSH (01:08)
[2024-08-04] MEDS: oxyCODONE/ACETAMINOPHEN (*CRX) 10-325 MG TABLET 1 TAB PO ×3 (01:08→14:05)
[2024-08-04] MEDS: SODIUM CHLORIDE 0.9% IV 1,000 ML 100 ML IV CONT ×3 (04:12→21:30)
[2024-08-04 05:48] LABS: Basophils Absolute Auto 0.1 K/mm3 (0.0-0.1); Basophils Percent Auto 1.2 % (0.2-1.2); Eosinophils Absolute Auto 0.6 K/mm3 (0-0.3); Eosinophils Percent Auto 7.1 % (0-4.4); Hematocrit 38.1 % (37.0-47.0); Hemoglobin 12.1 g/dL (12.0-15.0); Immature Granulocyte Absolute 0.11 K/mm3 (0.00-0.031); Immature Granulocyte Percent A 1.3 % (0-0.5); Lymphocytes Absolute Auto 1.38 K/mm3 (0.9-3.2); Lymphocytes Percent Auto 16.1 % (18.3-44.2); Mean Corpuscular HGB Conc 31.8 g/dl (32-36); Mean Corpuscular Hemoglobin 31.7 pg (26-34); Mean Corpuscular Volume 99.7 fl (80-100); Mean Platelet Volume 11.7 fl (7.4-10.4); Monocytes Absolute Auto 0.9 K/mm3 (0.1-0.6); Monocytes Percent Auto 10.4 % (2.6-8.5); Neutrophils Absolute Auto 5.5 K/mm3 (1.3-6.7); Neutrophils Percent Auto 63.9 % (45.5-73.1); Platelet Count Result 223 k/mm3 (150-375); Red Blood Count 3.82 M/mm3 (4.2-5.4); Red Cell Distribution Width 15.3 % (11.5-14.5); White Blood Count 8.6 K/mm3 (4.5-10.0)
[2024-08-04 06:05] LABS: Alanine Aminotransferase 71 U/L (6-35); Albumin Level 3.8 g/dL (3.5-5.1); Alkaline Phosphatase 164 U/L (38-126); Anion Gap 9 mmol/L (4-12); Aspartate Amino Transferase 60 U/L (14-36); Bilirubin,Total 1.4 mg/dL (0.2-1.3); Blood Urea Nitrogen 29 mg/dL (7-17); Calcium 7.9 mg/dL (8.4-10.2); Carbon Dioxide 18 mmol/L (22-30); Chloride 107 mmol/L (98-107); Estimated CRCL calculation 34 ml/min; Estimated Glomerular Filt Rate 48; Glucose 146 mg/dL (65-110); Potassium 4.3 mmol/L (3.4-5.0); Sodium 134 mmol/L (137-145)
[2024-08-04 06:12] LABS: Troponin I 0.072 ng/mL (0.000-0.034)
--- NOTE | 2024-08-04 07:09 | PM.IMPN ---
Progress Note: A&P Assessment and Plan (1) Acute pancreatitis: Code(s): K85.90 - Acute pancreatitis without necrosis or infection, unspecified Status: Acute Assessment and Plan: Patient has been having mid abdomen pain radiating to the back for approximately 2 weeks with associated nausea/vomiting and loose stools. Unclear etiology. Ddx includes medication related, autoimmune (given hx RA), passed gallbladder (contracted gallbladder on CT and LFT's are downtrending). Triglycerides only slightly elevated,l but uncontrolled blood sugars can be a trigger - lipase 1000 on admission, downtrending. 354 on am labs. - CT abdomen/pelvis: no acute process. Noted contracted gallbladder, normal pancreas - antiemetics - analgesics: Percocet and Dilaudid - diet: clear liquid diet advanced to full liquids, but only had sherbert this morning. - Gentle IV fluid resuscitation - Monitor vital signs, I&Os, and patient is a fall risk - Monitor serum electrolytes and CBC --Add PPI --GI consult --Follow LFT's --Likely add a statin (2) Elevated troponin: Code(s): R79.89 - Other specified abnormal findings of blood chemistry Status: Acute Assessment and Plan: Patient no history of CAD. Likely demand ischemia possibly related to patients hypertension - EKG on admission shows sinus rhythm no specific ST-T changes - Troponin was 0.038 on admission > 0.054 > 0.053 > 0.079 - Repeat EKG unchanged - Telemetry monitoring - Continue home Eliquis 2.5 mg b.i.d. p.o. Spoke with cardiology and since patient is not experiencing chest pain there is no true concern for ACS and this is likely secondary to demand ischemia as previously believed. (3) Fall: Code(s): W19.XXXA - Unspecified fall, initial encounter Status: Acute Assessment and Plan: Per chart review, patient slipped out of her chair onto the floor hitting her head. She denies loss of consciousness. Possible due to pain, dehydration and/or poor intake - Head CT: Stable moderate nonspecific cerebral white matter disease, which likely represents chronic small vessel ischemic disease. - C spine CT: No fracture. Severe cervical spondylosis. - Lumbar CT: No fracture. Severe lumbar spondylosis.Lumbar levoscoliosis. - Hip/pelvis XR: Mild osteoarthritis of the hips. - Consult PT OT wild animal caretaker for evaluation and assisting placement (4) Uncontrolled hypertension: Code(s): I10 - Essential (primary) hypertension Status: Acute Assessment and Plan: Chronic, uncontrolled on home medications. - continue home losartan 100 mg daily and metoprolol 25 mg daily - started on amlodipine 5 mg daily - monitor (5) Uncontrolled type 2 diabetes mellitus: Status: Acute Assessment and Plan: - hypoglycemia protocol - POC blood glucose ACHS - home medication - metformin 500 mg BIDWM - correct regimen ordered - low dose TIDWM (6) CKD stage 3 due to type 2 diabetes mellitus: Code(s): E11.22 - Type 2 diabetes mellitus with diabetic chronic kidney disease; N18.30 - Chronic kidney disease, stage 3 unspecified Status: Acute Assessment and Plan: BUN/Cr 27/1.10 with eGFR 48 on admission. Appears to be at baseline. - Monitor - Avoid nephrotoxic medications - Renally dose medications Time Spent With Patient Time: 59 minutes Subjective Date/time seen: 08/04/24 07:09 Interval history: Patient reports nausea/vomiting prior to admit but improved today. Still with a poor appetite, ate sherbert Epigastric and low abdominal pain today. Not voiding well, small amounts. On home 3L O2. No chest pain. Review of Systems Review of Systems: ongoing abdominal pains All systems reviewed & are unremarkable except as noted in HPI and below Exam Narrative: General - Awake and alert. No acute distress Eyes - PERRLA, EOM intact ENT - No thrush, No erythema Neck - No noticeable or palpable swelli
[2024-08-04 08:00] LABS: Glucose Point of Care 151 mg/dl (65-105)
[2024-08-04] MEDS: LOSARTAN POTASSIUM 100 MG TABLET PO (08:31)
[2024-08-04] MEDS: LEFLUNOMIDE 20 MG TABLET PO (08:31)
[2024-08-04] MEDS: PRAVASTATIN SODIUM 20 MG TABLET 40 MG PO (08:31)
[2024-08-04] MEDS: APIXABAN 2.5 MG TABLET PO ×2 (08:31→21:18)
[2024-08-04] MEDS: DULoxetine HCL 60 MG CAPSULE.DR PO (08:31)
[2024-08-04] MEDS: MICONAZOLE NITRATE 2% CREAM 30 GM TUBE 1 APPLIC TOPICAL ×2 (08:33→21:18)
[2024-08-04] MEDS: METOPROLOL TARTRATE 25 MG TABLET PO ×2 (08:40→21:19)
[2024-08-04] MEDS: amLODIPine BESYLATE 5 MG TABLET PO (08:40)
[2024-08-04 12:04] LABS: Glucose Point of Care 165 mg/dl (65-105)
[2024-08-04] MEDS: polyethylene glycoL 3350 17 GM POWD.PACK PO (13:29)
[2024-08-04] MEDS: PANTOPRAZOLE SODIUM IV 40 MG VIAL IV PUSH (14:14)
[2024-08-04] MEDS: SODIUM CHLORIDE 0.9% IV 1,000 ML 999 ML IV CONT (16:10)
--- NOTE | 2024-08-04 16:30 | WPDGICN ---
Assessment and Plan Assessment and plan (1) Acute pancreatitis: Code(s): K85.90 - Acute pancreatitis without necrosis or infection, unspecified Status: Acute Assessment and Plan: clinically better given mild elevated liver enzymes, will order mrcp to assess biliary system (2) TARIQ (acute kidney injury): Code(s): N17.9 - Acute kidney failure, unspecified Status: Acute Assessment and Plan: better (3) Upper abdominal pain: Code(s): R10.10 - Upper abdominal pain, unspecified Status: Acute Assessment and Plan: tolerating diet and improved (4) Uncontrolled type 2 diabetes mellitus: Status: Acute (5) Elevated liver enzymes: Code(s): R74.8 - Abnormal levels of other serum enzymes Status: Acute (6) Elevated troponin: Code(s): R79.89 - Other specified abnormal findings of blood chemistry Status: Acute Assessment and Plan: by primary GI Consult Note Consult date/time: 08/04/24 16:30 Reason for consult: abdominal pain, pancreatitis HPI: Sayra Glass is a 84 year old female with history of hypertension, hyperlipidemia, diabetes, history of PE on eliquis, CKD stage 3 admitted 3 days ago with new onset of upper abdomen pain, nausea vomiting. Pain has been ongoing for few days prior to admission and finally came because was getting worse, radiation to her back, she even took oxycodone that she has for chronic back pain at home. She was recently treated for UTI. Blood work on admission showed hyponatremia 133, elevated BUN creatinine ratio 23/1.10, lipase 1000 trended down, troponin moderate elevated. Pain is better now, c/o burning sensation but eating more. CT scan reviewed, no acute findings, normal GB. TB 1.4, transaminases 60 Review of Systems Constitutional: Constitutional: Denies chills Eyes: Eyes: Denies blurry vision ENT: Denies dysphagia Cardiovascular: Cardiovascular: Denies chest pain Respiratory: Respiratory: Denies cough Gastrointestinal: Gastrointestinal: Reports abdominal pain and Reports nausea Genitourinary: Genitourinary: Denies urinary incontinence Musculoskeletal: Musculoskeletal: Denies neck pain Integumentary/Breasts: Skin/Breast: Denies rash Neurologic: Denies Abnormal speech present Psychiatric: Psychiatric: Denies behavioral changes FOR[facility]LY [facility], [facility] Past Medical History Medical History (Updated 08/04/24 @ 16:36 by Thomas Whitehead MD) Degenerative lumbar disc Diabetes Elevated liver enzymes Insomnia Upper abdominal pain Ventricular bigeminy Family History Family History Sibling Dementia Father Acute myocardial infarction Mother Diabetes mellitus Social History Social History Smoking status: Never smoker Alcohol intake: never Substance use: never Do You Feel Safe in your Home?: Yes Lack of Transportation: No Lack of Food: Never True Current Housing: I Have Housing Concerned About Future Housing: No Difficulty Paying Gas/Electric Bills: No Difficulty Paying for Meds: No Currently Unemployed: No Education: Decline to Answer Difficulty w/ Childcare or Family Care: No Spiritual care concerns: No Meds Home Medications and Allergies Home Medications Medication Instructions Recorded Confirmed Type duloxetine 60 mg capsule,delayed 60 mg PO DAILY 03/20/24 08/02/24 History release leflunomide 20 mg tablet 20 mg PO DAILY 03/20/24 08/02/24 History metformin 500 mg tablet 500 mg PO BIDWM 03/20/24 08/02/24 History metoprolol succinate 25 mg 25 mg PO HS 03/20/24 08/02/24 History tablet,extended release 24 hr pravastatin 40 mg tablet 40 mg PO DAILY 03/20/24 08/02/24 History trazodone 100 mg tablet 200 mg PO HS 03/20/24 08/02/24 History apixaban 2.5 mg tablet (Eliquis) 2.5 mg PO Q12HR #60 tabs 03/24/24 08/02/24 Rx nitrofuranto
[2024-08-04 17:20] LABS: Glucose Point of Care 220 mg/dl (65-105)
[2024-08-04 17:36] LABS: Add Urine Microscopic? YES; Appearance Urine Cloudy (Clear); Bacteria Urine 1+ /hpf; Bilirubin Urine Negative (Negative); Blood Urine Negative (Negative); Color Urine Dark Yellow (Yellow); Glucose Urine UA Negative (Negative); Ketones Urine Negative (Negative); Leukocyte Esterase Ur 2+ LEU/UL (Negative); Need Manual Microscopic Reviewed; Nitrate Urine Negative (Negative); Protein Urine 2+ mg/dL (Negative); RBC Urine 0-2 /hpf (0-2); Specific Grav Ur 1.024 (1.001-1.035); Squamous Epithelial Cell Urine Moderate /hpf (Few); WBC Urine 51-100 /hpf (0-3); pH Urine 5.5 (5.0-9.0)
[2024-08-04] MEDS: INSULIN ASPART (*BKC) 100 UNITS/ML SUB-Q (17:51)
[2024-08-04] MEDS: SODIUM CHLORIDE 0.9% IV 500 ML 999 ML IV CONT (19:30)
[2024-08-04 20:09] LABS: Glucose Point of Care 234 mg/dl (65-105)
[2024-08-04] MEDS: traZODone HCL 50 MG TABLET 100 MG PO (21:18)
[2024-08-04] MEDS: MELATONIN 5 MG TABLET PO (21:18)
[2024-08-04] MEDS: clonazePAM (*CRX) 0.5 MG TABLET PO (22:47)
[2024-08-05] VITALS (8 sets, daily range): BP systolic 100–130; BP diastolic 53–67; PULSE 58–70; RESP 14–20; TEMP 36.3–36.7; O2SAT 90–95
[2024-08-05] MEDS: oxyCODONE/ACETAMINOPHEN (*CRX) 10-325 MG TABLET 1 TAB PO ×2 (01:20→17:12)
[2024-08-05 05:05] LABS: Basophils Percent Auto 0.2 % (0.2-1.2); Eosinophils Absolute Auto 0.3 K/mm3 (0-0.3); Eosinophils Percent Auto 2.4 % (0-4.4); Hematocrit 34.9 % (37.0-47.0); Hemoglobin 10.6 g/dL (12.0-15.0); Immature Granulocyte Absolute 0.08 K/mm3 (0.00-0.031); Immature Granulocyte Percent A 0.7 % (0-0.5); Lymphocytes Absolute Auto 0.38 K/mm3 (0.9-3.2); Lymphocytes Percent Auto 3.1 % (18.3-44.2); Mean Corpuscular HGB Conc 30.4 g/dl (32-36); Mean Corpuscular Hemoglobin 31.2 pg (26-34); Mean Corpuscular Volume 102.6 fl (80-100); Mean Platelet Volume 11.4 fl (7.4-10.4); Monocytes Absolute Auto 0.6 K/mm3 (0.1-0.6); Monocytes Percent Auto 5.2 % (2.6-8.5); Neutrophils Absolute Auto 10.8 K/mm3 (1.3-6.7); Neutrophils Percent Auto 88.4 % (45.5-73.1); Platelet Count Result 217 k/mm3 (150-375); Red Cell Distribution Width 15.8 % (11.5-14.5); White Blood Count 12.2 K/mm3 (4.5-10.0)
[2024-08-05 05:21] LABS: Alanine Aminotransferase 55 U/L (6-35); Albumin Level 2.9 g/dL (3.5-5.1); Alkaline Phosphatase 147 U/L (38-126); Anion Gap 8 mmol/L (4-12); Aspartate Amino Transferase 40 U/L (14-36); Bilirubin,Total 0.8 mg/dL (0.2-1.3); Blood Urea Nitrogen 26 mg/dL (7-17); Calcium 7.1 mg/dL (8.4-10.2); Carbon Dioxide 16 mmol/L (22-30); Chloride 109 mmol/L (98-107); Estimated CRCL calculation 34 ml/min; Estimated Glomerular Filt Rate 48; Glucose 151 mg/dL (65-110); Potassium 4.6 mmol/L (3.4-5.0); Sodium 133 mmol/L (137-145)
[2024-08-05] MEDS: SODIUM CHLORIDE 0.9% IV 500 ML 999 ML IV CONT (06:49)
--- NOTE | 2024-08-05 07:43 | PM.IMPN ---
Progress Note: A&P Assessment and Plan (1) Acute pancreatitis: Code(s): K85.90 - Acute pancreatitis without necrosis or infection, unspecified Status: Acute Assessment and Plan: Patient has been having mid abdomen pain radiating to the back for approximately 2 weeks with associated nausea/vomiting and loose stools. Unclear etiology. Ddx includes medication related, autoimmune (given hx RA), passed gallbladder (contracted gallbladder on CT and LFT's are downtrending). Triglycerides only slightly elevated,l but uncontrolled blood sugars can be a trigger - lipase 1000 on admission, downtrending. 354 on am labs. - CT abdomen/pelvis: no acute process. Noted contracted gallbladder, normal pancreas - antiemetics: Zofran prn - analgesics: Percocet and Dilaudid, has chronic right leg pain. Caution with home sleeping medications while taking pain medications - diet: clear liquid diet advanced to consistent carb diet - Gentle IV fluid resuscitation - Monitor vital signs, I&Os, and patient is a fall risk - Monitor serum electrolytes and CBC --Add PPI --GI consulted, appreciate recommendations. MRCP pending. Premedicate with ativan for MRI --Follow LFT's, improving: Alk phos 175>164>147, ALT 79>71>55, AST 52<60>40, TBili 1.4>0.8 --Likely add a statin (2) Elevated troponin: Code(s): R79.89 - Other specified abnormal findings of blood chemistry Status: Acute Assessment and Plan: Patient no history of CAD. Likely demand ischemia possibly related to patients hypertension - EKG on admission shows sinus rhythm no specific ST-T changes - Troponin was 0.038 on admission > 0.054 > 0.053 > 0.079 - Repeat EKG unchanged - Telemetry monitoring - Continue home Eliquis 2.5 mg b.i.d. p.o. Spoke with cardiology and since patient is not experiencing chest pain there is no true concern for ACS and this is likely secondary to demand ischemia as previously believed. (3) Fall: Code(s): W19.XXXA - Unspecified fall, initial encounter Status: Acute Assessment and Plan: Per chart review, patient slipped out of her chair onto the floor hitting her head. She denies loss of consciousness. Possible due to pain, dehydration and/or poor intake - Head CT: Stable moderate nonspecific cerebral white matter disease, which likely represents chronic small vessel ischemic disease. - C spine CT: No fracture. Severe cervical spondylosis. - Lumbar CT: No fracture. Severe lumbar spondylosis.Lumbar levoscoliosis. - Hip/pelvis XR: Mild osteoarthritis of the hips. - Consult PT OT care professional for evaluation and assisting placement (4) Uncontrolled hypertension: Code(s): I10 - Essential (primary) hypertension Status: Acute Assessment and Plan: Chronic, uncontrolled on home medications. Blood pressure 100/53 overnight, received an additional fluid bolus - Hold losartan 100 mg daily amlodipine 5 mg daily pending repeat blood pressures --Continue metoprolol 25 hs - monitor vs q6 (5) Uncontrolled type 2 diabetes mellitus: Status: Acute Assessment and Plan: - home medication - metformin 500 mg BIDWM--holding while inpatient - hypoglycemia protocol - POC blood glucose ACHS - Continue low dose TIDWM -Blood sugars above goal intermittently but appetite poor so will continue sliding scale only for now (6) CKD stage 3 due to type 2 diabetes mellitus: Code(s): E11.22 - Type 2 diabetes mellitus with diabetic chronic kidney disease; N18.30 - Chronic kidney disease, stage 3 unspecified Status: Acute Assessment and Plan: BUN/Cr 27/1.10 with eGFR 48 on admission. Appears to be at baseline. - Monitor - Avoid nephrotoxic medications - Renally dose medications (7) Decreased urine output: Code(s): R34 - Anuria and oliguria Status: Acute Assessment and Plan: urine output decreased yesterday, gave a fluid bolus. Also treating for UTI --Continue fluids: NS@100, inc
[2024-08-05 07:52] LABS: Glucose Point of Care 134 mg/dl (65-105)
[2024-08-05] MEDS: ACETAMINOPHEN 325 MG TABLET 650 MG PO (09:45)
[2024-08-05] MEDS: PRAVASTATIN SODIUM 20 MG TABLET 40 MG PO (09:45)
[2024-08-05] MEDS: LEFLUNOMIDE 20 MG TABLET PO (09:46)
[2024-08-05] MEDS: PANTOPRAZOLE SODIUM IV 40 MG VIAL IV PUSH (09:46)
[2024-08-05] MEDS: MICONAZOLE NITRATE 2% CREAM 30 GM TUBE 1 APPLIC TOPICAL ×2 (09:46→21:01)
[2024-08-05] MEDS: APIXABAN 2.5 MG TABLET PO ×2 (09:46→21:01)
[2024-08-05] MEDS: polyethylene glycoL 3350 17 GM POWD.PACK PO (09:46)
[2024-08-05] MEDS: DULoxetine HCL 60 MG CAPSULE.DR PO (09:47)
[2024-08-05] MEDS: SODIUM CHLORIDE 0.9% IV 1,000 ML 100 ML IV CONT (09:47)
--- NOTE | 2024-08-05 10:18 | WPDGIPROGNO ---
Progress Note: A&P Assessment and Plan (1) Elevated liver enzymes: Code(s): R74.8 - Abnormal levels of other serum enzymes Status: Acute Assessment and Plan: trending down mrcp was ordered, CT scan no major findings (2) Upper abdominal pain: Code(s): R10.10 - Upper abdominal pain, unspecified Status: Acute (3) Acute pancreatitis: Code(s): K85.90 - Acute pancreatitis without necrosis or infection, unspecified Status: Acute Assessment and Plan: mrcp to get better view of biliary system (4) Uncontrolled hypertension: Code(s): I10 - Essential (primary) hypertension Status: Acute (5) Uncontrolled type 2 diabetes mellitus: Status: Acute (6) Elevated troponin: Code(s): R79.89 - Other specified abnormal findings of blood chemistry Status: Acute Assessment and Plan: by primary team, flat troponin Subjective Date/time seen: 08/05/24 10:18 Interval history: still poor appetite, pain but mostly in hip/leg Review of Systems Review of Systems: All systems reviewed & are unremarkable except as noted in HPI and below Exam Const: General: comfortable and no acute distress HENMT: Face/Nose/Sinus: Normal nares present Eyes: General: appearance normal, both eyes and all related structures Neck: Neck: supple Resp: Auscultation: clear to auscultation bilaterally Cardio: Rate: regular rate Rhythm: regular rhythm GI: Inspection: non-distended GI Palp: Yes Soft to palpation and Yes Tenderness to palpation present (GI) (mild pain, no rebound) Auscultation: normal bowel sounds Skin: General skin exam: normal color Neuro: Speech: normal speech Motor exam (neuro): 5/5 motor strength present throughout Extrem: General: normal to inspection Psych: Mental Status: mental status grossly normal Objective Data Vital Signs Vital Signs: Vital Signs - 24 hr 08/04/24 14:05 08/04/24 20:36 08/04/24 21:19 Temperature 97.4 F L 97.4 F L Pulse Rate 62 62 60 Respiratory Rate 16 18 Blood Pressure 133/63 119/56 L Pulse Oximetry 90 90 Oxygen Delivery Oxygen Flow Rate Fraction of Inspired Oxygen 08/04/24 21:30 08/04/24 21:12 08/05/24 05:23 Temperature 97.3 F L Pulse Rate 61 Respiratory Rate 18 Blood Pressure 100/53 L Pulse Oximetry 91 91 92 Oxygen Delivery Nasal Cannula Nasal Cannula Oxygen Flow Rate 3 3 Fraction of Inspired Oxygen 08/05/24 05:50 08/04/24 20:06 08/05/24 07:27 Temperature 98.0 F 97.4 F L Pulse Rate 58 L 62 Respiratory Rate 16 18 Blood Pressure 100/53 L 119/56 L Pulse Oximetry 95 90 90 Oxygen Delivery Nasal Cannula Oxygen Flow Rate 3 Fraction of Inspired Oxygen 32 08/05/24 09:05 Temperature Pulse Rate Respiratory Rate Blood Pressure 118/67 Pulse Oximetry Oxygen Delivery Oxygen Flow Rate Fraction of Inspired Oxygen Intake/Output Intake/Output: Intake & Output 08/02/24 08/03/24 08/04/24 08/05/24 23:59 23:59 23:59 23:59 Intake Total 3390 3285 3495 1700 Output Total 425 50 500 Balance 2965 3235 2995 1700 Meds/Results Medications: Active Medications Generic Name Dose Route Start Last Admin Trade Name Freq PRN Reason Stop Dose Admin Acetaminophen 650 mg 08/02/24 17:35 08/05/24 09:45 Acetaminophen 325 Mg Tablet PO 650 mg Q6H PRN Administration Mild Pain (1-3) or Fever Acetaminophen 325 mg 08/02/24 18:17 Acetaminophen 325 Mg Tablet PO Q6H PRN Mild Pain (1-3) or Fever Amlodipine Besylate 5 mg 08/02/24 09:00 08/04/24 08:40 Amlodipine Besylate 5 Mg Tablet PO 5 mg DAILY ANAHI Administration Apixaban 2.5 mg 08/01/24 22:40 08/05/24 09:46 Apixaban 2.5 Mg Tablet PO 2.5 mg Q12HR ANAHI Administration Clonazepam 0.5 mg 08/04/24 15:30 08/04/24 22:47 Clonazepam (*Crx) 0.5 Mg Tablet PO 0.5 mg HS PRN Administration Sleep Dextrose 12.5 gm 08/03/24 07:13 Dextrose 50% 25 Gm/50 Ml
[2024-08-05] MEDS: LORazepam INJ (*CRX) 2 MG/ML VIAL 0.5 MG IV PUSH (11:19)
--- NOTE | 2024-08-05 11:23 | PC.NURSE ---
pt taken down for MRI
--- NOTE | 2024-08-05 12:30 | PC.NURSE ---
[facility]
[2024-08-05 12:31] LABS: Glucose Point of Care 175 mg/dl (65-105)
[2024-08-05 15:28] LABS: Basophils Absolute Auto 0.1 K/mm3 (0.0-0.1); Basophils Percent Auto 0.5 % (0.2-1.2); Eosinophils Absolute Auto 0.6 K/mm3 (0-0.3); Eosinophils Percent Auto 5.6 % (0-4.4); Hematocrit 33.9 % (37.0-47.0); Hemoglobin 10.6 g/dL (12.0-15.0); Immature Granulocyte Absolute 0.08 K/mm3 (0.00-0.031); Immature Granulocyte Percent A 0.8 % (0-0.5); Lymphocytes Absolute Auto 0.49 K/mm3 (0.9-3.2); Lymphocytes Percent Auto 4.7 % (18.3-44.2); Mean Corpuscular HGB Conc 31.3 g/dl (32-36); Mean Corpuscular Hemoglobin 31.2 pg (26-34); Mean Corpuscular Volume 99.7 fl (80-100); Mean Platelet Volume 10.8 fl (7.4-10.4); Monocytes Absolute Auto 0.5 K/mm3 (0.1-0.6); Monocytes Percent Auto 4.7 % (2.6-8.5); Neutrophils Absolute Auto 8.7 K/mm3 (1.3-6.7); Neutrophils Percent Auto 83.7 % (45.5-73.1); Platelet Count Result 208 k/mm3 (150-375); Red Cell Distribution Width 15.6 % (11.5-14.5); White Blood Count 10.4 K/mm3 (4.5-10.0)
[2024-08-05 15:59] LABS: Alanine Aminotransferase 48 U/L (6-35); Albumin Level 2.9 g/dL (3.5-5.1); Alkaline Phosphatase 143 U/L (38-126); Aspartate Amino Transferase 46 U/L (14-36); Bilirubin,Total 0.7 mg/dL (0.2-1.3); CRP 3.2 mg/dL (<1.0)
[2024-08-05 17:03] LABS: Glucose Point of Care 221 mg/dl (65-105)
[2024-08-05] MEDS: INSULIN ASPART (*BKC) 100 UNITS/ML SUB-Q (17:36)
[2024-08-05 20:11] LABS: Glucose Point of Care 215 mg/dl (65-105)
[2024-08-05] MEDS: MELATONIN 5 MG TABLET PO (21:01)
[2024-08-05] MEDS: traZODone HCL 50 MG TABLET 100 MG PO (21:01)
[2024-08-05] MEDS: clonazePAM (*CRX) 0.5 MG TABLET PO (22:49)
[2024-08-05] MEDS: SODIUM CHLORIDE 0.9% IV 1,000 ML 125 ML IV CONT (23:38)
[2024-08-06 06:04] VITALS: BP 142/80; PULSE 77; RESP 16; TEMP 36.7; O2SAT 91
[2024-08-06 06:26] LABS: Basophils Absolute Auto 0.1 K/mm3 (0.0-0.1); Basophils Percent Auto 0.5 % (0.2-1.2); Eosinophils Absolute Auto 0.8 K/mm3 (0-0.3); Eosinophils Percent Auto 8.5 % (0-4.4); Hematocrit 33.8 % (37.0-47.0); Hemoglobin 10.4 g/dL (12.0-15.0); Immature Granulocyte Absolute 0.05 K/mm3 (0.00-0.031); Immature Granulocyte Percent A 0.5 % (0-0.5); Lymphocytes Absolute Auto 0.72 K/mm3 (0.9-3.2); Lymphocytes Percent Auto 7.5 % (18.3-44.2); Mean Corpuscular HGB Conc 30.8 g/dl (32-36); Mean Corpuscular Hemoglobin 30.4 pg (26-34); Mean Corpuscular Volume 98.8 fl (80-100); Mean Platelet Volume 11.5 fl (7.4-10.4); Monocytes Absolute Auto 0.6 K/mm3 (0.1-0.6); Neutrophils Absolute Auto 7.4 K/mm3 (1.3-6.7); Platelet Count Result 218 k/mm3 (150-375); Red Blood Count 3.42 M/mm3 (4.2-5.4); Red Cell Distribution Width 15.9 % (11.5-14.5); White Blood Count 9.6 K/mm3 (4.5-10.0)
[2024-08-06 06:44] LABS: Alanine Aminotransferase 45 U/L (6-35); Albumin Level 2.9 g/dL (3.5-5.1); Alkaline Phosphatase 139 U/L (38-126); Anion Gap 7 mmol/L (4-12); Aspartate Amino Transferase 31 U/L (14-36); Bilirubin,Total 0.6 mg/dL (0.2-1.3); Blood Urea Nitrogen 28 mg/dL (7-17); Calcium 7.4 mg/dL (8.4-10.2); Carbon Dioxide 18 mmol/L (22-30); Chloride 110 mmol/L (98-107); Estimated CRCL calculation 31 ml/min; Estimated Glomerular Filt Rate 36; Glucose 150 mg/dL (65-110); Potassium 4.1 mmol/L (3.4-5.0); Sodium 135 mmol/L (137-145)
--- NOTE | 2024-08-06 07:24 | PM.IMPN ---
Progress Note: A&P Assessment and Plan (1) Acute pancreatitis: Code(s): K85.90 - Acute pancreatitis without necrosis or infection, unspecified Status: Acute Assessment and Plan: Patient has been having mid abdomen pain radiating to the back for approximately 2 weeks with associated nausea/vomiting and loose stools. Unclear etiology. Ddx includes medication related, autoimmune (given hx RA), passed gallbladder (contracted gallbladder on CT and LFT's are downtrending). Triglycerides only slightly elevated,l but uncontrolled blood sugars can be a trigger - lipase 1000 on admission, downtrending. 354 on am labs. - CT abdomen/pelvis: no acute process. Noted contracted gallbladder, normal pancreas - antiemetics: Zofran prn - analgesics: Percocet and Dilaudid, has chronic right leg pain. Caution with home sleeping medications while taking pain medications - diet: clear liquid diet advanced to consistent carb diet - Gentle IV fluid resuscitation - Monitor vital signs, I&Os, and patient is a fall risk - Monitor serum electrolytes and CBC --Add PPI --GI consulted, appreciate recommendations. MRCP on 08/05. Premedicate with ativan for MRI MRCP results: 1. No intra or extrahepatic ductal or ductal dilation or evident cholelithiasis/choledocholithiasis. 2. Marked edematous wall thickening of the gallbladder which is not dilated and which along with the mild periportal edema is likely related to acute interstitial pancreatitis which also likely accounts for the diffuse retroperitoneal edema and minimal ascites. 3. Small bilateral pleural effusions. No need for ERCP --Follow LFT's, improving: Alk phos 175>164>147>139, ALT 79>71>55> 45, AST 52<60>40>31, TBili 1.4>0.8> 0.6 --Started on pravastatin 40 mg daily (2) Elevated troponin: Code(s): R79.89 - Other specified abnormal findings of blood chemistry Status: Acute Assessment and Plan: Patient no history of CAD. Likely demand ischemia possibly related to patients hypertension - EKG on admission shows sinus rhythm no specific ST-T changes - Troponin was 0.038 on admission > 0.054 > 0.053 > 0.079 > 0.072 - Repeat EKG unchanged - Telemetry monitoring - Continue home Eliquis 2.5 mg b.i.d. p.o. Spoke with cardiology and since patient is not experiencing chest pain there is no true concern for ACS and this is likely secondary to demand ischemia as previously believed. (3) Fall: Code(s): W19.XXXA - Unspecified fall, initial encounter Status: Acute Assessment and Plan: Per chart review, patient slipped out of her chair onto the floor hitting her head. She denies loss of consciousness. Possible due to pain, dehydration and/or poor intake - Head CT: Stable moderate nonspecific cerebral white matter disease, which likely represents chronic small vessel ischemic disease. - C spine CT: No fracture. Severe cervical spondylosis. - Lumbar CT: No fracture. Severe lumbar spondylosis.Lumbar levoscoliosis. - Hip/pelvis XR: Mild osteoarthritis of the hips. - Consult PT OT careers adviser for evaluation and assisting placement (4) Uncontrolled hypertension: Code(s): I10 - Essential (primary) hypertension Status: Acute Assessment and Plan: Chronic, uncontrolled on home medications. Blood pressure 100/53 overnight, received an additional fluid bolus - Hold losartan 100 mg daily pending repeat blood pressures --Continue metoprolol 25 mg hs and amlodipine 5 mg daily - monitor vs q6 (5) Uncontrolled type 2 diabetes mellitus: Status: Acute Assessment and Plan: - home medication - metformin 500 mg BIDWM--holding while inpatient - hypoglycemia protocol - POC blood glucose ACHS - Continue low dose TIDWM -Blood sugars above goal intermittently but appetite poor so will continue sliding scale only for now (6) CKD stage 3 due to type 2 diabetes mellitus: Code(s): E11.22 - Type 2 diabetes mellitus with diabetic chronic ki
--- NOTE | 2024-08-06 08:21 | PCPTNOTE ---
Patient refused treatment this session due to not feeling well. RN aware.
[2024-08-06 08:26] LABS: Glucose Point of Care 153 mg/dl (65-105)
[2024-08-06 09:00] VITALS: O2SAT 95
[2024-08-06] MEDS: PANTOPRAZOLE SODIUM IV 40 MG VIAL IV PUSH (09:09)
[2024-08-06] MEDS: PRAVASTATIN SODIUM 20 MG TABLET 40 MG PO (09:09)
[2024-08-06] MEDS: polyethylene glycoL 3350 17 GM POWD.PACK PO (09:09)
[2024-08-06] MEDS: DULoxetine HCL 60 MG CAPSULE.DR PO (09:09)
[2024-08-06] MEDS: LEFLUNOMIDE 20 MG TABLET PO (09:09)
[2024-08-06] MEDS: APIXABAN 2.5 MG TABLET PO ×2 (09:09→20:24)
[2024-08-06] MEDS: SODIUM CHLORIDE 0.9% IV 1,000 ML 125 ML IV CONT ×2 (09:10→22:22)
[2024-08-06] MEDS: MICONAZOLE NITRATE 2% CREAM 30 GM TUBE 1 APPLIC TOPICAL ×2 (09:10→20:24)
[2024-08-06] MEDS: ONDANSETRON INJ 4 MG/2 ML VIAL IV PUSH (09:12)
[2024-08-06] MEDS: oxyCODONE/ACETAMINOPHEN (*CRX) 10-325 MG TABLET 1 TAB PO (10:05)
[2024-08-06 12:06] LABS: Glucose Point of Care 209 mg/dl (65-105)
[2024-08-06] MEDS: INSULIN ASPART (*BKC) 100 UNITS/ML SUB-Q (12:32)
--- NOTE | 2024-08-06 12:45 | WPDGIPROGNO ---
Progress Note: A&P Assessment and Plan (1) Elevated liver enzymes: Code(s): R74.8 - Abnormal levels of other serum enzymes Status: Acute Assessment and Plan: trending down mrcp with normal bile duct, edema due to pancreatitis tolerating diet (2) Upper abdominal pain: Code(s): R10.10 - Upper abdominal pain, unspecified Status: Acute (3) Acute pancreatitis: Code(s): K85.90 - Acute pancreatitis without necrosis or infection, unspecified Status: Acute Assessment and Plan: mrcp reviewed no need of ercp normal bili (4) Uncontrolled hypertension: Code(s): I10 - Essential (primary) hypertension Status: Acute (5) Uncontrolled type 2 diabetes mellitus: Status: Acute (6) Elevated troponin: Code(s): R79.89 - Other specified abnormal findings of blood chemistry Status: Acute Assessment and Plan: by primary team, flat troponin Subjective Date/time seen: 08/06/24 12:45 Interval history: c/o mostly of leg pain eating but still not much of appetite Review of Systems Review of Systems: All systems reviewed & are unremarkable except as noted in HPI and below Exam Const: General: comfortable and no acute distress HENMT: Face/Nose/Sinus: Normal nares present Eyes: General: appearance normal, both eyes and all related structures Neck: Neck: supple Resp: Auscultation: clear to auscultation bilaterally Cardio: Rate: regular rate Rhythm: regular rhythm GI: Inspection: non-distended GI Palp: Yes Soft to palpation and Yes Tenderness to palpation present (GI) (mild pain, no rebound) Auscultation: normal bowel sounds Skin: General skin exam: normal color Neuro: Speech: normal speech Motor exam (neuro): 5/5 motor strength present throughout Extrem: General: normal to inspection Psych: Mental Status: mental status grossly normal Objective Data Vital Signs Vital Signs: Vital Signs - 24 hr 08/05/24 14:06 08/05/24 21:03 08/05/24 21:01 Temperature 97.3 F L 97.7 F Pulse Rate 69 70 Respiratory Rate 20 14 Blood Pressure 118/57 L 130/63 Pulse Oximetry 91 90 90 Oxygen Delivery Nasal Cannula Oxygen Flow Rate 3 08/06/24 06:04 08/06/24 09:00 Temperature 98.1 F Pulse Rate 77 Respiratory Rate 16 Blood Pressure 142/80 H Pulse Oximetry 91 95 Oxygen Delivery Nasal Cannula Oxygen Flow Rate 3 Intake/Output Intake/Output: Intake & Output 08/03/24 08/04/24 08/05/24 08/06/24 23:59 23:59 23:59 23:59 Intake Total 3285 3495 3350 1640 Output Total 50 500 200 Balance 3235 2995 3150 1640 Meds/Results Medications: Active Medications Generic Name Dose Route Start Last Admin Trade Name Freq PRN Reason Stop Dose Admin Acetaminophen 650 mg 08/02/24 17:35 08/05/24 09:45 Acetaminophen 325 Mg Tablet PO 650 mg Q6H PRN Administration Mild Pain (1-3) or Fever Acetaminophen 325 mg 08/02/24 18:17 Acetaminophen 325 Mg Tablet PO Q6H PRN Mild Pain (1-3) or Fever Amlodipine Besylate 5 mg 08/02/24 09:00 08/05/24 11:12 Amlodipine Besylate 5 Mg Tablet PO Not Given DAILY ANAHI Apixaban 2.5 mg 08/01/24 22:40 08/06/24 09:09 Apixaban 2.5 Mg Tablet PO 2.5 mg Q12HR ANAHI Administration Clonazepam 0.5 mg 08/04/24 15:30 08/05/24 22:49 Clonazepam (*Crx) 0.5 Mg Tablet PO 0.5 mg HS PRN Administration Sleep Dextrose 12.5 gm 08/03/24 07:13 Dextrose 50% 25 Gm/50 Ml Syringe IV PUSH PRN PRN Hypoglycemia Protocol Duloxetine HCl 60 mg 08/03/24 09:00 08/06/24 09:09 Duloxetine Hcl 60 Mg Capsule.Dr PO 60 mg DAILY ANAHI Administration Glucagon 1 mg 08/03/24 07:13 Glucagon For Inj 1 Mg Vial IM PRN PRN Hypoglycemia Protocol Glucose 15 gm 08/03/24 07:13 Glucose Oral Gel 15 Gm Of Glucse In 37.5 Gm Tube PO PRN PRN Hypoglycemia Protocol Hydromorphone HCl 0.5 mg 08/01/24 22:35 08/02/24 17:03 H
[2024-08-06 13:39] VITALS: BP 122/59; PULSE 78; RESP 18; TEMP 36.4; O2SAT 91
[2024-08-06 16:45] LABS: Glucose Point of Care 170 mg/dl (65-105)
[2024-08-06] MEDS: AMOXICILLIN/CLAVULANATE K 875-125 MG TAB 1 TABLET PO (17:14)
[2024-08-06] MEDS: BENZOCAINE/MENTHOL (*BKC) 18 EA LOZENGE 1 LOZENGE PO (17:16)
[2024-08-06] MEDS: traZODone HCL 50 MG TABLET 100 MG PO (20:24)
[2024-08-06] MEDS: clonazePAM (*CRX) 0.5 MG TABLET PO (20:24)
[2024-08-06 20:25] VITALS: O2SAT 91
[2024-08-06] MEDS: MELATONIN 5 MG TABLET PO (20:25)
[2024-08-06 21:10] LABS: Glucose Point of Care 189 mg/dl (65-105)
[2024-08-07] VITALS (7 sets, daily range): BP systolic 139–158; BP diastolic 72–85; PULSE 83–91; RESP 16–20; TEMP 36.2–36.5; O2SAT 90–95
[2024-08-07] MEDS: oxyCODONE/ACETAMINOPHEN (*CRX) 10-325 MG TABLET 1 TAB PO ×3 (03:11→15:28)
[2024-08-07] MEDS: SODIUM CHLORIDE 0.9% IV 1,000 ML 125 ML IV CONT ×3 (06:35→23:30)
--- NOTE | 2024-08-07 07:09 | PM.IMPN ---
Progress Note: A&P Assessment and Plan (1) Acute pancreatitis: Qualifiers: Acute pancreatitis complication: no infection or necrosis Pancreatitis type: unspecified pancreatitis type Qualified Code(s): K85.90 - Acute pancreatitis without necrosis or infection, unspecified Code(s): K85.90 - Acute pancreatitis without necrosis or infection, unspecified Status: Acute Assessment and Plan: Patient has been having mid abdomen pain radiating to the back for approximately 2 weeks with associated nausea/vomiting and loose stools. Unclear etiology. Ddx includes medication related, autoimmune (given hx RA), passed gallbladder (contracted gallbladder on CT and LFT's are downtrending). Triglycerides only slightly elevated,l but uncontrolled blood sugars can be a trigger - lipase 1000 on admission, downtrending. 354 on am labs. - CT abdomen/pelvis: no acute process. Noted contracted gallbladder, normal pancreas - antiemetics: Zofran prn - analgesics: Percocet and Dilaudid, has chronic right leg pain. Caution with home sleeping medications while taking pain medications - diet: clear liquid diet advanced to consistent carb diet - Gentle IV fluid resuscitation - Monitor vital signs, I&Os, and patient is a fall risk - Monitor serum electrolytes and CBC --Add PPI --GI consulted, appreciate recommendations. MRCP on 08/05. Premedicate with ativan for MRI MRCP results: 1. No intra or extrahepatic ductal or ductal dilation or evident cholelithiasis/choledocholithiasis. 2. Marked edematous wall thickening of the gallbladder which is not dilated and which along with the mild periportal edema is likely related to acute interstitial pancreatitis which also likely accounts for the diffuse retroperitoneal edema and minimal ascites. 3. Small bilateral pleural effusions. No need for ERCP --Follow LFT's, improving: Alk phos 175>164>147>139, ALT 79>71>55> 45, AST 52<60>40>31, TBili 1.4>0.8> 0.6 --Started on pravastatin 40 mg daily (2) Elevated troponin: Code(s): R79.89 - Other specified abnormal findings of blood chemistry Status: Acute Assessment and Plan: Patient no history of CAD. Likely demand ischemia possibly related to patients hypertension - EKG on admission shows sinus rhythm no specific ST-T changes - Troponin was 0.038 on admission > 0.054 > 0.053 > 0.079 > 0.072 - Repeat EKG unchanged - Telemetry monitoring - Continue home Eliquis 2.5 mg b.i.d. p.o. Spoke with cardiology and since patient is not experiencing chest pain there is no true concern for ACS and this is likely secondary to demand ischemia as previously believed. (3) Fall: Qualifiers: Encounter type: initial encounter Qualified Code(s): W19.XXXA - Unspecified fall, initial encounter Code(s): W19.XXXA - Unspecified fall, initial encounter Status: Acute Assessment and Plan: Per chart review, patient slipped out of her chair onto the floor hitting her head. She denies loss of consciousness. Possible due to pain, dehydration and/or poor intake - Head CT: Stable moderate nonspecific cerebral white matter disease, which likely represents chronic small vessel ischemic disease. - C spine CT: No fracture. Severe cervical spondylosis. - Lumbar CT: No fracture. Severe lumbar spondylosis.Lumbar levoscoliosis. - Hip/pelvis XR: Mild osteoarthritis of the hips. - Consult PT OT hospice home care coordinator for evaluation and assisting placement (4) Uncontrolled hypertension: Code(s): I10 - Essential (primary) hypertension Status: Acute Assessment and Plan: Chronic, uncontrolled on home medications. Blood pressure 100/53 overnight, received an additional fluid bolus --Continue losartan 100 mg daily, metoprolol 25 mg hs and amlodipine 5 mg daily - monitor vs q6 (5) Uncontrolled type 2 diabetes mellitus: Status: Acute Assessment and Plan: - home medication - metformin 500 mg BIDWM--holding while i
[2024-08-07 08:25] LABS: Glucose Point of Care 130 mg/dl (65-105)
[2024-08-07] MEDS: PRAVASTATIN SODIUM 20 MG TABLET 40 MG PO (08:48)
[2024-08-07] MEDS: APIXABAN 2.5 MG TABLET PO ×2 (08:48→20:22)
[2024-08-07] MEDS: LEFLUNOMIDE 20 MG TABLET PO (08:48)
[2024-08-07] MEDS: DULoxetine HCL 60 MG CAPSULE.DR PO (08:48)
[2024-08-07] MEDS: polyethylene glycoL 3350 17 GM POWD.PACK PO (08:48)
[2024-08-07] MEDS: AMOXICILLIN/CLAVULANATE K 875-125 MG TAB 1 TABLET PO ×2 (08:48→17:48)
[2024-08-07] MEDS: MICONAZOLE NITRATE 2% CREAM 30 GM TUBE 1 APPLIC TOPICAL ×2 (08:49→20:22)
[2024-08-07] MEDS: PANTOPRAZOLE SODIUM IV 40 MG VIAL IV PUSH (08:49)
[2024-08-07 10:21] LABS: Basophils Absolute Auto 0.1 K/mm3 (0.0-0.1); Eosinophils Percent Auto 10.8 % (0-4.4); Hematocrit 36.8 % (37.0-47.0); Hemoglobin 11.4 g/dL (12.0-15.0); Immature Granulocyte Absolute 0.09 K/mm3 (0.00-0.031); Lymphocytes Absolute Auto 0.73 K/mm3 (0.9-3.2); Lymphocytes Percent Auto 8.1 % (18.3-44.2); Mean Corpuscular Hemoglobin 31.8 pg (26-34); Mean Corpuscular Volume 102.5 fl (80-100); Mean Platelet Volume 10.9 fl (7.4-10.4); Monocytes Absolute Auto 0.6 K/mm3 (0.1-0.6); Monocytes Percent Auto 6.1 % (2.6-8.5); Neutrophils Absolute Auto 6.6 K/mm3 (1.3-6.7); Platelet Count Result 220 k/mm3 (150-375); Red Blood Count 3.59 M/mm3 (4.2-5.4); Red Cell Distribution Width 16.2 % (11.5-14.5)
[2024-08-07 10:36] LABS: Alanine Aminotransferase 34 U/L (6-35); Albumin Level 2.8 g/dL (3.5-5.1); Alkaline Phosphatase 133 U/L (38-126); Anion Gap 8 mmol/L (4-12); Aspartate Amino Transferase 26 U/L (14-36); Bilirubin,Total 0.9 mg/dL (0.2-1.3); Blood Urea Nitrogen 18 mg/dL (7-17); Calcium 7.9 mg/dL (8.4-10.2); Carbon Dioxide 13 mmol/L (22-30); Chloride 116 mmol/L (98-107); Estimated CRCL calculation 37 ml/min; Estimated Glomerular Filt Rate 53; Glucose 175 mg/dL (65-110); Potassium 4.2 mmol/L (3.4-5.0); Sodium 137 mmol/L (137-145)
[2024-08-07 12:03] LABS: Glucose Point of Care 171 mg/dl (65-105)
--- NOTE | 2024-08-07 14:52 | WPDGIPROGNO ---
Progress Note: A&P Assessment and Plan (1) Elevated liver enzymes: Code(s): R74.8 - Abnormal levels of other serum enzymes Status: Acute Assessment and Plan: trending down mrcp with normal bile duct, edema due to pancreatitis tolerating diet, she is more comfortable will follow as needed (2) Upper abdominal pain: Code(s): R10.10 - Upper abdominal pain, unspecified Status: Acute Assessment and Plan: improved (3) Acute pancreatitis: Qualifiers: Acute pancreatitis complication: no infection or necrosis Pancreatitis type: unspecified pancreatitis type Qualified Code(s): K85.90 - Acute pancreatitis without necrosis or infection, unspecified Code(s): K85.90 - Acute pancreatitis without necrosis or infection, unspecified Status: Acute Assessment and Plan: mrcp reviewed no need of ercp normal bili (4) Uncontrolled hypertension: Code(s): I10 - Essential (primary) hypertension Status: Acute (5) Uncontrolled type 2 diabetes mellitus: Status: Acute (6) Elevated troponin: Code(s): R79.89 - Other specified abnormal findings of blood chemistry Status: Acute Assessment and Plan: by primary team, flat troponin Subjective Date/time seen: 08/07/24 14:52 Interval history: eating more and comfortable Review of Systems Review of Systems: All systems reviewed & are unremarkable except as noted in HPI and below Exam Const: General: comfortable and no acute distress HENMT: Face/Nose/Sinus: Normal nares present Eyes: General: appearance normal, both eyes and all related structures Neck: Neck: supple Resp: Auscultation: clear to auscultation bilaterally Cardio: Rate: regular rate Rhythm: regular rhythm GI: Inspection: non-distended GI Palp: Yes Soft to palpation and Yes Tenderness to palpation present (GI) (mild pain, no rebound) Auscultation: normal bowel sounds Skin: General skin exam: normal color Neuro: Speech: normal speech Motor exam (neuro): 5/5 motor strength present throughout Extrem: General: normal to inspection Psych: Mental Status: mental status grossly normal Objective Data Vital Signs Vital Signs: Vital Signs - 24 hr 08/06/24 20:25 08/07/24 00:00 08/07/24 08:06 Temperature 97.7 F Pulse Rate 86 Respiratory Rate 16 Blood Pressure 153/75 H Pulse Oximetry 91 91 92 Oxygen Delivery Nasal Cannula Nasal Cannula Oxygen Flow Rate 3 3 Fraction of Inspired Oxygen 32 10/08/24 08:00 08/07/24 08:50 08/07/24 14:34 Temperature 97.1 F L 97.2 F L Pulse Rate 83 84 Respiratory Rate 20 18 Blood Pressure 158/85 H 139/72 Pulse Oximetry 94 95 90 Oxygen Delivery Nasal Cannula Oxygen Flow Rate 3 Fraction of Inspired Oxygen Intake/Output Intake/Output: Intake & Output 08/04/24 08/05/24 08/06/24 08/07/24 23:59 23:59 23:59 23:59 Intake Total 3495 3350 3470 1710 Output Total 500 200 200 400 Balance 2995 3150 3270 1310 Meds/Results Medications: Active Medications Generic Name Dose Route Start Last Admin Trade Name Freq PRN Reason Stop Dose Admin Acetaminophen 650 mg 08/02/24 17:35 08/05/24 09:45 Acetaminophen 325 Mg Tablet PO 650 mg Q6H PRN Administration Mild Pain (1-3) or Fever Amlodipine Besylate 5 mg 08/02/24 09:00 08/05/24 11:12 Amlodipine Besylate 5 Mg Tablet PO Not Given DAILY ANAHI Amoxicillin/Clavulanate Potassium 1 tablet 08/06/24 15:30 08/07/24 08:48 Amoxicillin/Clavulanate K 875-125 Mg Tab PO 08/11/24 09:01 1 tablet BID ANAHI Administration Apixaban 2.5 mg 08/01/24 22:40 08/07/24 08:48 Apixaban 2.5 Mg Tablet PO 2.5 mg Q12HR ANAHI Administration Benzocaine 1 lozenge 08/06/24 16:49 08/06/24 17:16 Benzocaine/Menthol (*Bkc) 18 Ea Lozenge PO 1 lozenge PRN PRN Administration Sore Throat Clonazepam 0.5 mg 08/04/24 15:30 08/06/24 20:24 Clonazepam (*Crx) 0.5 Mg Tablet PO 0.5 mg
[2024-08-07 17:14] LABS: Glucose Point of Care 219 mg/dl (65-105)
[2024-08-07] MEDS: INSULIN ASPART (*BKC) 100 UNITS/ML SUB-Q (17:49)
[2024-08-07] MEDS: SENNA/DOCUSATE SODIUM TABLET 1 TAB PO (20:21)
[2024-08-07] MEDS: clonazePAM (*CRX) 0.5 MG TABLET PO (20:21)
[2024-08-07] MEDS: MELATONIN 5 MG TABLET PO (20:21)
[2024-08-07] MEDS: traZODone HCL 50 MG TABLET 100 MG PO (20:22)
[2024-08-07 20:44] LABS: Glucose Point of Care 234 mg/dl (65-105)
[2024-08-08] MEDS: oxyCODONE/ACETAMINOPHEN (*CRX) 10-325 MG TABLET 1 TAB PO ×4 (00:22→16:18)
[2024-08-08 06:22] LABS: Basophils Absolute Auto 0.1 K/mm3 (0.0-0.1); Basophils Percent Auto 0.8 % (0.2-1.2); Eosinophils Absolute Auto 0.9 K/mm3 (0-0.3); Eosinophils Percent Auto 11.9 % (0-4.4); Hemoglobin 10.7 g/dL (12.0-15.0); Immature Granulocyte Absolute 0.05 K/mm3 (0.00-0.031); Immature Granulocyte Percent A 0.7 % (0-0.5); Lymphocytes Absolute Auto 1.28 K/mm3 (0.9-3.2); Lymphocytes Percent Auto 17.3 % (18.3-44.2); Mean Corpuscular HGB Conc 30.6 g/dl (32-36); Mean Corpuscular Hemoglobin 30.7 pg (26-34); Mean Corpuscular Volume 100.6 fl (80-100); Mean Platelet Volume 10.3 fl (7.4-10.4); Monocytes Absolute Auto 0.6 K/mm3 (0.1-0.6); Monocytes Percent Auto 8.5 % (2.6-8.5); Neutrophils Absolute Auto 4.5 K/mm3 (1.3-6.7); Neutrophils Percent Auto 60.8 % (45.5-73.1); Nucleated Red Blood Cells Perc 0.3 % (0.0-0.2); Platelet Count Result 210 k/mm3 (150-375); Red Blood Count 3.48 M/mm3 (4.2-5.4); Red Cell Distribution Width 16.6 % (11.5-14.5); White Blood Count 7.4 K/mm3 (4.5-10.0)
[2024-08-08 06:34] LABS: Alanine Aminotransferase 30 U/L (6-35); Albumin Level 2.9 g/dL (3.5-5.1); Alkaline Phosphatase 138 U/L (38-126); Anion Gap 6 mmol/L (4-12); Aspartate Amino Transferase 22 U/L (14-36); Bilirubin,Total 0.9 mg/dL (0.2-1.3); Blood Urea Nitrogen 16 mg/dL (7-17); Calcium 8.2 mg/dL (8.4-10.2); Carbon Dioxide 17 mmol/L (22-30); Chloride 115 mmol/L (98-107); Estimated CRCL calculation 43 ml/min; Estimated Glomerular Filt Rate 53; Glucose 136 mg/dL (65-110); Potassium 4.6 mmol/L (3.4-5.0); Sodium 138 mmol/L (137-145)
[2024-08-08 08:00] VITALS: O2SAT 91
[2024-08-08 08:12] LABS: Glucose Point of Care 132 mg/dl (65-105)
[2024-08-08 08:45] VITALS: O2SAT 94
[2024-08-08] MEDS: LOSARTAN POTASSIUM 100 MG TABLET PO (09:46)
[2024-08-08] MEDS: APIXABAN 2.5 MG TABLET PO (09:46)
[2024-08-08] MEDS: LEFLUNOMIDE 20 MG TABLET PO (09:46)
[2024-08-08] MEDS: DULoxetine HCL 60 MG CAPSULE.DR PO (09:46)
[2024-08-08] MEDS: AMOXICILLIN/CLAVULANATE K 875-125 MG TAB 1 TABLET PO ×2 (09:46→16:18)
[2024-08-08] MEDS: SODIUM CHLORIDE 0.9% IV 1,000 ML 125 ML IV CONT (09:47)
[2024-08-08] MEDS: PRAVASTATIN SODIUM 20 MG TABLET 40 MG PO (09:47)
[2024-08-08] MEDS: MICONAZOLE NITRATE 2% CREAM 30 GM TUBE 1 APPLIC TOPICAL (09:47)
[2024-08-08] MEDS: polyethylene glycoL 3350 17 GM POWD.PACK PO (09:47)
[2024-08-08] MEDS: PANTOPRAZOLE SODIUM IV 40 MG VIAL IV PUSH (09:48)
[2024-08-08 12:10] LABS: Glucose Point of Care 174 mg/dl (65-105)
[2024-08-08 14:00] VITALS: BP 154/93; PULSE 95; RESP 20; TEMP 36.4; O2SAT 94
[2024-08-08 14:20] VITALS: PULSE 94; O2SAT 92
[2024-08-08 14:35] VITALS: PULSE 106; O2SAT 90
[2024-08-08 14:45] VITALS: PULSE 95; O2SAT 92
--- NOTE | 2024-08-08 14:52 | PCRCNOTE ---
HOME O2 EVAL COMPLETE. NO CHANGE IN CURRENT SETTING. RN NOTIFIED.
--- NOTE | 2024-08-08 15:08 | PM.DS ---
DS: Admitting Diagnosis Discharge Date 08/08 Admitting Diagnosis abd pain DS: Discharge Diagnosis Discharge Diagnosis (1) Acute pancreatitis: Qualifiers: Acute pancreatitis complication: no infection or necrosis Pancreatitis type: unspecified pancreatitis type Qualified Code(s): K85.90 - Acute pancreatitis without necrosis or infection, unspecified Code(s): K85.90 - Acute pancreatitis without necrosis or infection, unspecified Status: Acute Assessment and Plan: Patient has been having mid abdomen pain radiating to the back for approximately 2 weeks with associated nausea/vomiting and loose stools. Unclear etiology. Ddx includes medication related, autoimmune (given hx RA), passed gallbladder (contracted gallbladder on CT and LFT's are downtrending). Triglycerides only slightly elevated,l but uncontrolled blood sugars can be a trigger - lipase 1000 on admission, downtrending. 354 on am labs. - CT abdomen/pelvis: no acute process. Noted contracted gallbladder, normal pancreas - antiemetics: Zofran prn - analgesics: Percocet and Dilaudid, has chronic right leg pain. Caution with home sleeping medications while taking pain medications - diet: clear liquid diet advanced to consistent carb diet - Gentle IV fluid resuscitation - Monitor vital signs, I&Os, and patient is a fall risk - Monitor serum electrolytes and CBC --Add PPI --GI consulted, appreciate recommendations. MRCP on 08/05. Premedicate with ativan for MRI MRCP results: 1. No intra or extrahepatic ductal or ductal dilation or evident cholelithiasis/choledocholithiasis. 2. Marked edematous wall thickening of the gallbladder which is not dilated and which along with the mild periportal edema is likely related to acute interstitial pancreatitis which also likely accounts for the diffuse retroperitoneal edema and minimal ascites. 3. Small bilateral pleural effusions. No need for ERCP --Follow LFT's, improving: Alk phos 175>164>147>139, ALT 79>71>55> 45, AST 52<60>40>31, TBili 1.4>0.8> 0.6 --Started on pravastatin 40 mg daily (2) Elevated troponin: Code(s): R79.89 - Other specified abnormal findings of blood chemistry Status: Acute Assessment and Plan: Patient no history of CAD. Likely demand ischemia possibly related to patients hypertension - EKG on admission shows sinus rhythm no specific ST-T changes - Troponin was 0.038 on admission > 0.054 > 0.053 > 0.079 > 0.072 - Repeat EKG unchanged - Telemetry monitoring - Continue home Eliquis 2.5 mg b.i.d. p.o. Spoke with cardiology and since patient is not experiencing chest pain there is no true concern for ACS and this is likely secondary to demand ischemia as previously believed. (3) Fall: Qualifiers: Encounter type: initial encounter Qualified Code(s): W19.XXXA - Unspecified fall, initial encounter Code(s): W19.XXXA - Unspecified fall, initial encounter Status: Acute Assessment and Plan: Per chart review, patient slipped out of her chair onto the floor hitting her head. She denies loss of consciousness. Possible due to pain, dehydration and/or poor intake - Head CT: Stable moderate nonspecific cerebral white matter disease, which likely represents chronic small vessel ischemic disease. - C spine CT: No fracture. Severe cervical spondylosis. - Lumbar CT: No fracture. Severe lumbar spondylosis.Lumbar levoscoliosis. - Hip/pelvis XR: Mild osteoarthritis of the hips. - Consult PT OT post acute care nurse practitioner for evaluation and assisting placement (4) Uncontrolled hypertension: Code(s): I10 - Essential (primary) hypertension Status: Acute Assessment and Plan: Chronic, uncontrolled on home medications. Blood pressure 100/53 overnight, received an additional fluid bolus --Continue losartan 100 mg daily, metoprolol 25 mg hs and amlodipine 5 mg daily - monitor vs q6 (5) Uncontrolled type 2 diabetes mellitus: Status: Acute
[2024-08-08] MEDS: INFLUENZA VACCINE HIGH DOSE (>64) 180 MCG/0.5 ML SYRINGE IM (16:19)
== END 2024-08-08 17:40 | disposition home health service (06) | DRG 439 ==
LOC: ANHED 19:27 → ANHIMU 23:27 → ANH2MED 08-02 17:20
PROVIDERS: Family Medicine; Nurse Practitioner Acute Care; Physician Assistant; Student in an Organized Health Care Education/Training Program; Admitting Provider Hospitalist; Emergency Provider Emergency Medicine; Visit Provider Nurse Practitioner
DX: K85.90 Acute pancreatitis without necrosis or infection, unspecified (principal); E87.1 Hypo-osmolality and hyponatremia; N39.0 Urinary tract infection, site not specified; I24.89 Other forms of acute ischemic heart disease; J96.11 Chronic respiratory failure with hypoxia; B96.20 Unspecified Escherichia coli [E. coli] as the cause of diseases classified elsewhere; B95.2 Enterococcus as the cause of diseases classified elsewhere; E86.0 Dehydration; E78.5 Hyperlipidemia, unspecified; E11.65 Type 2 diabetes mellitus with hyperglycemia; E11.22 Type 2 diabetes mellitus with diabetic chronic kidney disease; F41.9 Anxiety disorder, unspecified; I12.9 Hypertensive chronic kidney disease with stage 1 through stage 4 chronic kidney disease, or unspecified chronic kidney disease; N18.30 Chronic kidney disease, stage 3 unspecified; M47.812 Spondylosis without myelopathy or radiculopathy, cervical region; M47.816 Spondylosis without myelopathy or radiculopathy, lumbar region; M16.0 Bilateral primary osteoarthritis of hip; M51.369 Other intervertebral disc degeneration, lumbar region without mention of lumbar back pain or lower extremity pain; W19.XXXA Unspecified fall, initial encounter; U09.9 Post COVID-19 condition, unspecified; Z23 Encounter for immunization; Z20.822 Contact with and (suspected) exposure to COVID-19; Z79.84 Long term (current) use of oral hypoglycemic drugs; Z79.01 Long term (current) use of anticoagulants; Z86.711 Personal history of pulmonary embolism; Z99.81 Dependence on supplemental oxygen
CPT/HCPCS: 36415; 70450; 72125; 72131; 73502; 74177; 74183; 76376; 76775; 80048; 80053; 80061; 80076; 81001; 82948; 83690; 84484; 85025; 86140; 87040; 87086; 87181; 87186; 87637; 90471; 90662; 93005; 94618; 96361; 96374; 96375; 97110; 97161; 97165; 97530; 97535; 99285; A9270; A9577; G0008; G0378; J0696; J1171; J1815; J2060; J2270; J2405; J2470; J7030; J7040; Q9967

== ENCOUNTER 2024-09-14 11:51 | Outpatient (NON) | payer OTHER, SELFPAY ==
[2024-09-14 12:45] LABS: Add Urine Microscopic? YES; Appearance Urine Clear (Clear); Bacteria Urine None Seen /hpf; Bilirubin Urine Negative (Negative); Blood Urine Negative (Negative); Color Urine Yellow (Yellow); Glucose Urine UA 3+ mg/dL (Negative); Ketones Urine Negative (Negative); Leukocyte Esterase Ur Negative LEU/UL (Negative); Nitrate Urine Negative (Negative); Protein Urine 2+ mg/dL (Negative); RBC Urine 0-2 /hpf (0-2); Specific Grav Ur 1.026 (1.001-1.035); Squamous Epithelial Cell Urine Occasional /hpf (Few); WBC Urine 0-5 /hpf (0-3); pH Urine 5.5 (5.0-9.0)
== END 2024-09-14 11:52 | disposition home or self-care (01) ==
LOC: HOME HLTH 11:53
PROVIDERS: Visit Provider Internal Medicine
DX: R30.0 Dysuria (principal); J96.21 Acute and chronic respiratory failure with hypoxia; J84.10 Pulmonary fibrosis, unspecified; Z99.81 Dependence on supplemental oxygen
CPT/HCPCS: 81001

== ENCOUNTER 2025-05-10 14:10 | Emergency (ER) | payer OTHER, SELFPAY ==
--- NOTE | ~2025-05-10 | XR_ITS ---
EXAMINATION: XR shoulder LT min 2V DATE: 05/10/2025 16:02 INDICATION: Left shoulder injury post fall TECHNIQUE: AP internally and externally rotated, AP oblique externally rotated and transscapular Y vi ews of the left shoulder were obtained. COMPARISON: None FINDINGS: Normal alignment. No fracture. Chondrocalcinosis and moderate osteoarthritis at the left glenohumera l joint. Is also moderate acromioclavicular osteoarthritis. Chronic likely enthesopathic calcificatio ns along the proximal diaphyseal regions of the left humerus. Visualized portion of the lungs are александр ar. Soft tissues are unremarkable. IMPRESSION: Moderate left glenohumeral and acromioclavicular osteoarthritis. No acute osseous abnormality. Reviewed, dictated and finalized at location A. IMPRESSION: Moderate left glenohumeral and acromioclavicular osteoarthritis. No acute osseo us abnormality.
--- NOTE | ~2025-05-10 | XR_ITS ---
EXAM/ PROCEDURE: XR elbow LT min 3V, XR pelvis 1-2V, XR chest 1V, XR wrist LT min 3V - 05/10/2025 15:4 0 CDT HISTORY: 84 years old Female with Fall COMPARISON: None available FINDINGS/ IMPRESSION: Left elbow: There are no fractures or dislocations.Joint space narrowing, subchondral sclerosis, subchondral cyst formation and osteophyte formation, compatible with mild osteoarthritis. Pelvis: No fracture or dislocations. Joint space narrowing, subchondral sclerosis, subchondral cyst formation and osteophyte formation, compatible with moderate osteoarthritis. Left wrist: No fracture or dislocations. Joint space narrowing, subchondral sclerosis, subchondral cyst formation and osteophyte formation, compatible with moderate osteoarthritis. Chest: Clear lungs. No pleural effusion or pneumothorax. Mild pulmonary vascular congestion. Degenerative ch anges are seen. No acute cardiopulmonary disease. Reviewed, dictated and finalized at location A.
--- NOTE | ~2025-05-10 | CT_ITS ---
EXAM: CT chest abdomen pelvis wo con - 05/10/2025 15:30 CDT HISTORY: 84 years old Female with L Shoulder Rib pain w/ ecchymosis over Ltrap TECHNIQUE: Multidetector CT of the chest, abdomen and pelvis was performed without intravenous contra st Coronal and sagittal reformats were also provided for review. Automatic exposure control was used for this study. COMPARISON: None available FINDINGS: Evaluation of bowel and hollow viscera is limited in the absence of oral contrast. CHEST: VISUALIZED LOWER NECK: Thyroid gland appears normal. No supraclavicular lymphadenopathy. AIRWAYS: Patent centrally. LUNGS and PLEURA: There are areas of airspace opacity in the left upper lobe concerning for infectiou s/inflammatory process. MEDIASTINUM and ISIS: No evidence of mediastinal hematoma. No lymphadenopathy. HEART AND PERICARDIUM: Heart is normal in size. No pericardial effusion. CHEST WALL: No axillary lymphadenopathy. Chest wall appears normal. VASCULATURE: Thoracic aorta and pulmonary arteries are normal in caliber. ABDOMEN and PELVIS: LIVER: Within normal limits. GALLBLADDER: No calcified gallstones. BILE DUCTS: Normal caliber. SPLEEN: Within normal limits. PANCREAS: Within normal limits. ADRENAL GLANDS: Within normal limits. KIDNEYS and URETERS: No hydronephrosis or hydroureter. No evidence for nephroureterolithiasis. URINARY BLADDER: Within normal limits. STOMACH and BOWEL: No abnormal bowel wall thickening. No obstruction. Colonic diverticulosis, without diverticulitis. REPRODUCTIVE ORGANS: Within normal limits. MESENTERY/PERITONEAL CAVITY: No free fluid or pneumoperitoneum. LYMPH NODES: No abdominal or pelvic lymphadenopathy. ABDOMINAL WALL: Within normal limits. VASCULATURE: Within normal limits. MUSCULOSKELETAL, THORACIC AND LUMBAR SPINE: No acute fracture is identified in the chest, abdomen or pelvis. No fracture of the thoracic or the lumbar spine. The level degenerative changes are seen in t he spine. IMPRESSION: 1. No evidence of acute traumatic injury in chest abdomen and pelvis. 2. Areas of airspace opacity in the left upper lobe concerning for infectious/inflammatory process. Reviewed, dictated and finalized at location A. IMPRESSION: 1. No evidence of acute traumatic injury in chest abdomen and pelvis. 2. Areas of airspace opacity in the left upper lobe concerning for infectious/ inflammatory process.
--- NOTE | ~2025-05-10 | CT_ITS ---
EXAM: CT brain wo con - 05/10/2025 15:26 CDT History: 84 years old Female with Fall on thinners COMPARISON: 08/01/24 PROCEDURE: CT of the head without contrast. Axial, sagittal and coronal reformatted planes were ann luated. Automatic exposure control was used for this study. FINDINGS: BRAIN PARENCHYMA: No acute hemorrhage. No mass effect or herniation. Littlejohn-white matter differentiatio n is maintained. Mild chronic volume loss. Scattered hypodensities in subcortical and periventricular white matter, likely representing chronic microvascular ischemic changes in this age group. Atherosc lerotic calcification of the intracranial vessels is noted. VENTRICLES/ EXTRA-AXIAL SPACES: No hydrocephalus or extra-axial fluid collection. EXTRACRANIAL STRUCTURES: No calvarial fracture. IMPRESSION: No evidence for acute intracranial hemorrhage or calvarial fracture. Reviewed, dictated and finalized at location A.
[2025-05-10 14:19] VITALS: BP 115/78; PULSE 92; RESP 16; TEMP 36.4; O2SAT 99
--- OUTSIDE RECORDS SUMMARY | 2025-05-10 14:45 | XMS_ITS ---
Author Name Auto Generated, Auto Generated Organization [facility] ices Address [address] [place] [address] Phone [phone] Care Team Providers Care Casual Shoe Inspector Name Role Phone Yuko Hammond Unavailable [phone] Loc Lopez Unavailable [phone] Functional Status No Results Mental Status No Results Allergies and Intolerances Name Onset Date Reaction Severity No Known Allergies (Allergy) TueMarch 24 20:23:00 EDT 2023 No Known Allergies (Allergy) TueAug 29 17:26:00 EDT 2022 Medications Medication Directions Start Date End Date oxyCODONE-acetaminophen 5 mg-325 mg tablet 1 tablet TABLET Oral PRN (Max 4 Doses) for 14 Days Indication: pain 1 tablet by mouth as needed every 6 hours for 14 days TueMarch 29 02:41:00 EDT 2023March 29 16:01:00 EDT 2023 fluconazole 150 mg tablet 1 tab TABLET O ral Every 3 Days for 9 Days Indication: Yeast InfectionQ 3 DAYS X 3 DOSES TueMarch 30 07:00:00 EDT 2023Apr 03 01:00:00 EDT 2023 losartan 50 mg tablet 75mg TABLET Oral 1 Time Daily Indication: HTN TueMarch 29 16:00:00 EDT 2023Apr 03 01:00:00 EDT 2023 oxyCODONE-acetaminophen 5 mg-325 mg tablet 1 tablet TABLET Oral PRN Every 6 Hours for 14 Days Pain TueMarch 29 15:59:00 EDT 2023Apr 03 01:00:00 ED2023 fluconazole 150 mg tablet 1 tab TABLET O ral Every 3 Days for 9 Days Indication: Yeast Infection TueMarch 28 15:33:00 EDT 2023March 29 11:44:00 EDT 2023 clonazePAM 1 mg tablet 1.5 mg TABLET Ora l 1 Time Daily Indication: sleep TueMarch 29 00:30:00 EDT 2023Apr 03 01:00:00 ED2023 nystatin 100,000 unit/mL oral suspension 5 ml SUSPENSION, ORAL (FINAL DOSE FORM) Oral 3 Times Daily for 5 Days Indication: Sore throat TueMarch 27 08:50:00 EDT 2023Apr 01 08:49:00 EDT 2023 TubersoL 5 tub. unit/0.1 mL intradermal injection solution 0.1 ml VIAL (ML) Intradermal 1 Time Weekly for 2 Weeks Indication: Rule out TB 1st injection on admission, then one week after. Read between 48 and 72 hours TueMarch 26 18:00:00 EDT 2023Apr 03:00:00 EDT 2023 TubersoL 5 tub. unit/0.1 mL intradermal injection solution Read Results VIAL (ML) Other 1 Time Weekly for 2 Weeks Indication: rule out tb Read results between 48-72 hours after 1st and 2nd (1 week apart). If positive do chest x-ray. TueMarch 26 18:00:00 EDT 2023Apr 03 01:00:00 ED2023 clonazePAM 1 mg tablet 1.5 mg TABLET Ora l 1 Time Daily Indication: sleep TueMarch 26 19:29:00 ED2023March 29 00:30:00 ED2023 Glucagon (HCl) Emergency Kit 1 mg solution for injection 1 mg/1 mL VIAL (EA) Intramuscular PRN Indication: Hypoglycemia I mg / 1 mL vial give IM as needed for hypoglycemia TueMarch 26 00:30:00 ED2023Apr 03 01:00:00 ED2023 clonazePAM 1 mg tablet 1 mg TABLET Oral 1 Time Daily Indication: Anxiety TueMarch 24 21:00:00 ED2023March 26 19:30:00 ED2023 oxyCODONE-acetaminophen 10 mg-325 mg tablet 0.5 tablet TABLET Oral PRN Every 6 Hours Indication: Pain TueMarch 24 21:00:00 EDT 2023March 29 02:42:00 EDT 2023 Eliquis 2.5 mg tablet 2.5 mg TABLET Oral 2 Times Daily Indication: Blood thinner Sat March 24 22:00:00 ED2023Apr 03 01:00:00 ED2023 losartan 50 mg tablet 50 mg TABLET Oral 1 Time Daily Indication: HTN TueMarch 24 22:00:00 EDT 2023 Rosalinda March 29 11:45:00 EDT 2023 nitrofurantoin monohydrate/macrocrystals 100 mg capsule 100 mg CAPSULE Oral 2 Times Daily for 3 Days Indication: UTI TueMarch 24 22:00:00 EDT 2023March 27 21:59:00 ED2023 pravastatin 40 mg tablet 40 mg TABLET Or al 1 Time Daily Indication: High cholesterol TueMarch 24 22:00:00 ED2023Apr 03 01:00:00 ED2023 DULoxetine 60 mg capsule,delayed release 60 mg CAPSULE,DELAYED RELEASE (ENTERIC COATED) Oral 1 Time Daily Indication: Depression TueMarch 24:00:00 ED2023Apr 03 01:00:00 ED2023 leflunomide 20 mg tablet 20 mg TABLET Or al 1 Time Daily Indication: rheumatoid arthritis Sat March 24 22:00:00 ED2023Apr 03 01:00:00 ED2023 metFORMIN 500 mg tablet 500 mg TABLET Or al 2 Times Daily Indication: DM II TueMarch 24 22:00:00 ED2023Apr 03 01:00:00 ED2023 fexofenadine 60 mg tablet 60 mg TABLET O ral 1 Time Daily Indication: Seasonal allergies TueMarch 24:00:00 ED2023Apr 03 01:00:00 ED2023 metoprolol succinate ER 25 mg tablet,extended release 24 hr 25 mg TABLET, EXTENDED RELEASE 24 HR Oral 1 Time Daily Indication: HTN Sat March 24 22:00:00 2023Apr 03 01:00:00 ED2023 traZODone 100 mg tablet 200 mg TABLET Or al 1 Time Daily Indication: Insomnia Sat March 24 22:00:00 ED2023Apr 03 01:00:00 ED2023 triamterene 37.5 mg-hydrochlorothiazide 25 mg tablet 1 tab TABLET Oral 1 Time Daily Indication: edema TueSep 09 09:00:00 EST 2022Sep 10:00: EST 2022 lidocaine 4 % topical patch 1 patch ADHE SIVE PATCH, MEDICATED Topical 2 Times Daily Indication: Pain On in AM, Off in PM TueSep 05 22:30:00 EST 2022Sep 10:00: EST 2022 Gemtesa 75 mg tablet 1 tab TABLET Oral 1 Time Daily Indication: urinary incontinence TueAug 31 15:00:00 EDT 2022 Rosalinda Sep 08 18:58:00 EST 2022 pregabalin 75 mg capsule 1 cap CAPSULE O ral 2 Times Daily Indication: nerve pain TueAug 31 15:00:00 EDT 2022Sep 10:: EST 2022 TubersoL 5 tub. unit/0.1 mL intradermal injection solution 0.1 ml VIAL (ML) Intradermal 1 Time Weekly for 2 Weeks Indication: TB test 1st injection on admission, then one week after. Read between 48 and 72 hours TueAug 30 09:00:00 2022Sep 10:: EST 2022 TubersoL 5 tub. unit/0.1 mL intradermal injection solution Read Results VIAL (ML) Other 1 Time Weekly for 2 Weeks Indication: TB test Read results between 48-72 hours after 1st and 2nd (1 week apart). If positive do chest x-ray. TueAug 30 09:00:00 2022Sep 10:: EST 2022 Glucagon (HCl) Emergency Kit 1 mg solution for injection 1 mg VIAL (EA) Intramuscular PRN (Max 3 Doses) Indication: Hypoglycemia TueAug 30 12:00:00 2022Sep 10:: EST 2022 clonazePAM 0.5 mg tablet 3 tabs TABLET O ral 1 Time Daily Indication: Anxiety TueAug 31 02:00:00 T 2022Sep 10:: EST 2022 traZODone 100 mg tablet 2 tabs TABLET Or al 1 Time Daily Indication: sleep TueAug 31 02:00:00 2022Sep 10:: EST 2022 aspirin 81 mg tablet,delayed release 81 mg TABLET, DELAYED RELEASE (ENTERIC COATED) Oral 1 Time Daily Indication: DVT prophylaxsis TueAug 29 17:00:00 EDT 2022Sep 10::00 EST 2022 docusate sodium 100 mg capsule 100 mg CAPSULE Oral 1 Time Daily Indication: Constipation TueAug 29 17:00:00 EDT 2022Sep 10:00: EST 2022 lidocaine 5 % topical patch 1 patch ADHE SIVE PATCH, MEDICATED Topical 2 Times Daily Indication: Pain On in am OFF in PM TueAug 29 17:00:00 EDT 2022Sep 05 22:48:00 EST 2022 Percocet 10 mg-325 mg tablet 1 tab TABLET Oral PRN Every 8 Hours Indication: PRN for Pain TueAug 29 17:00:00 EDT 2022Aug 29 23:28:00 EDT 2022 ClearLax 17 gram oral powder packet 1 packet POWDER IN PACKET (EA) Oral 1 Time Daily Indication: Constipation TueAug 29 17:00:00 EDT 2022Sep 10:00: EST 2022 Senna with Docusate Sodium 8.6 mg-50 mg tablet 2 tabs TABLET Oral 1 Time Daily Indication: Constipation TueAug 29 17:00:00 EDT 2022Sep 10:: EST 2022 gabapentin 100 mg capsule 100 mg CAPSULE Oral 3 Times Daily Indication: RLS TueAug 29 17:00:00 EDT 2022Aug 31 14:54:00 EDT 2022 leflunomide 20 mg tablet 20 mg TABLET Or al 1 Time Daily Indication: RA TueAug 29 17:00:00 EDT 2022Sep 10:: EST 2022 metFORMIN 500 mg tablet 500 mg TABLET Or al 2 Times Daily Indication: DM TueAug 29 17:00:00 EDT 2022Sep 10:00: EST 2022 traZODone 150 mg tablet 150 mg TABLET Or al 1 Time Daily Indication: insomnia TueAug 29 17:00:00 EDT 2022 TuAug 30 22:29:00 EDT 2022 Eliquis 5 mg tablet 5 mg TABLET Oral 2 T imes Daily Indication: Blood Clot TueAug 29 17:00:00 EDT 2022Sep 10:00:00 EST 2022 clonazePAM 0.5 mg tablet 3 tabs TABLET O ral 1 Time Daily Indication: Anxiety 3 tabs by mouth at HS (each tab 0.5 mg) TueAug 29 17:00:00 EDT 2022Aug 29 23:31:00 EDT 2022 Cymbalta 60 mg capsule,delayed release 60 mg CAPSULE,DELAYED RELEASE (ENTERIC COATED) Oral 1 Time Daily Indication: Pain TueAug 29 17:00:00 EDT 2022Sep 10 01:00: EST 2022 fexofenadine 180 mg tablet 180 mg TABLET Oral 1 Time Daily Indication: allergies TueAug 29 19:00:00 EDT 2022Sep 10 01:00:00 EST 2022 losartan 100 mg tablet 100 mg TABLET Ora l 1 Time Daily Indication: Blood Pressure TueAug 29 17:00:00 EDT 2022Sep 10 01:00:00 EST 2022 omeprazole 40 mg capsule,delayed release 40 mg CAPSULE,DELAYED RELEASE (ENTERIC COATED) Oral 1 Time Daily Indication: GERD TueAug 29 17:00:00 EDT 2022Sep 02 17:45:00 EDT 2022 pravastatin 40 mg tablet 40 MG TABLET Or al 1 Time Daily Indication: htn TueAug 29 17:00:00 EDT 2022Sep 10:00: EST 2022 oxyCODONE-acetaminophen 10 mg-325 mg tablet 1 tablet TABLET Oral PRN Every 6 Hours for 14 Days Indication: Pain TueAug 29 23:00:00 EDT 2022Sep 10 01:00:00 EST 2022 clonazePAM 0.5 mg tablet 2 tabs/1mg TABL ET Oral 1 Time Daily Indication: Anxiety TueAug 29 23:00:00 EDT 2022 Tue Aug 30 22:26:00 EDT 2022 Problems Active Concerns * Rheumatoid arthritis, unspecified* Code: * Start Date: TueAug 29 00:00:00 EDT 2022 * End Date: * Text: * Hyperlipidemia, unspecified* Code: * Start Date: TueAug 29 00:00:00 EDT 2022 * End Date: * Text: * Insomnia, unspecified* Code: * Start Date: TueAug 29 00:00:00 EDT 2022 * End Date: * Text: * Personal history of pulmonary embolism* Code: * Start Date: TueAug 29 00:00:00 EDT 2022 * End Date: * Text: * Allergic rhinitis, unspecified* Code: * Start Date: TueAug 29 00:00:00 EDT 2022 * End Date: * Text: * Unspecified asthma, uncomplicated* Code: * Start Date: TueAug 29 00:00:00 EDT 2023 * End Date: * Text: * Type 2 diabetes mellitus with diabetic chronic kidney disease* Code: * Start Date: TueAug 29 00:00:00 EDT 2022 * End Date: * Text: * retirement (current) use of anticoagulants* Code: * Start Date: TueAug 29 00:00:00 EDT 2022 * End Date: * Text: * Other cervical disc displacement, unspecified cervical region* Code: * Start Date: TueAug 29 00:00:00 EDT 2022 * End Date: * Text: * Other intervertebral disc displacement, thoracic region* Code: * Start Date: TueAug 29 00:00:00 EDT 2022 * End Date: * Text: * Other intervertebral disc displacement, lumbar region* Code: * Start Date: TueAug 29 00:00:00 EDT 2022 * End Date: * Text: * Spinal stenosis, cervical region* Code: * Start Date: TueAug 29 00:00:00 EDT 2022 * End Date: * Text: * Spinal stenosis, lumbar region without neurogenic claudication* Code: * Start Date: TueAug 29 00:00:00 EDT 2022 * End Date: * Text: * Presence of artificial knee joint, bilateral* Code: * Start Date: TueAug 29 00:00:00 EDT 2022 * End Date: * Text: * gill box tender (current) use of antimetabolite agent* Code: * Start Date: TueAug 29 00:00:00 EDT 2022 * End Date: * Text: * retirement (current) use of opiate analgesic* Code: * Start Date: TueAug 29 00:00:00 EDT 2022 * End Date: * Text: * Sleep apnea, unspecified* Code: * Start Date: TueAug 29 00:00:00 EDT 2022 * End Date: * Text: * Arthrodesis status* Code: * Start Date: TueAug 29 00:00:00 EDT 2022 * End Date: * Text: * Other intervertebral disc degeneration, lumbar region* Code: * Start Date: TueAug 29 00:00:00 EDT 2022 * End Date: * Text: * Hypertensive chronic kidney disease with stage 1 through stage 4 chronic kidney disease, or unspecified chronic kidney disease* Code: * Start Date: TueAug 29 00:00:00 EDT 2022 * End Date: * Text: * Unilateral primary osteoarthritis, right hip* Code: * Start Date: TueAug 29 00:00:00 EDT 2022 * End Date: * Text: * Anxiety disorder, unspecified* Code: * Start Date: TueAug 29 00:00:00 EDT 2022 * End Date: * Text: * Constipation, unspecified* Code: * Start Date: TueAug 29 00:00:00 EDT 2022 * End Date: * Text: * retirement (current) use of aspirin* Code: * Start Date: TueAug 29 00:00:00 EDT 2022 * End Date: * Text: * retirement (current) use of oral hypoglycemic drugs* Code: * Start Date: TueAug 29 00:00:00 EDT 2022 * End Date: * Text: * Chronic kidney disease, stage 3 unspecified* Code: * Start Date: TueAug 29 00:00:00 EDT 2022 * End Date: * Text: * Urinary tract infection, site not specified* Code: * Start Date: TueMarch 24 00:00:00 EDT 2023 * End Date: * Text: * Metabolic encephalopathy* Code: * Start Date: TueMarch 24 00:00:00 EDT 2023 * End Date: * Text: * Altered mental status, unspecified* Code: * Start Date: TueMarch 24 00:00:00 EDT 2023 * End Date: * Text: * Other specified cardiac arrhythmias* Code: * Start Date: TueMarch 24 00:00:00 EDT 2023 * End Date: * Text: * Chronic respiratory failure with hypoxia* Code: * Start Date: TueMarch 24 00:00:00 EDT 2023 * End Date: * Text: * Personal history of COVID-19* Code: * Start Date: TueMarch 24 00:00:00 EDT 2023 * End Date: * Text: * Other cholelithiasis without obstruction* Code: * Start Date: TueMarch 24 00:00:00 EDT 2023 * End Date: * Text: * Acute kidney failure, unspecified* Code: * Start Date: TueMarch 24 00:00:00 EDT 2023 * End Date: * Text: * Dependence on supplemental oxygen* Code: * Start Date: TueMarch 24 00:00:00 EDT 2023 * End Date: * Text: * Cyst of kidney, acquired* Code: * Start Date: TueMarch 24 00:00:00 EDT 2023 * End Date: * Text: Reason for Referral Past Medical History
--- OUTSIDE RECORDS SUMMARY | 2025-05-10 14:45 | XMS_ITS | Clinical Summary ---
Author Organization [facility] [id number] [facility] Address [address] [place] [address] Care Team Providers Care Sr Risk Management Consultant Name Role Phone Robbi Cervantes MD Primary Care Provider Social History Tobacco Use Types Packs/Day Years Used Date Smoking Tobacco: Never Assessed Comments Unknown Sex and Gender Information Value Date Recorded Sex Assigned at Not on file Legal Sex Female 9:52 AM CDT Gender Identity Not on file Sexual Orientation Not on file Plan of Treatment Health Maintenance Due Date Last Done Comments DTAP/TDAP/TD VACCINES (1 - Tdap) 1961 PNEUMOCOCCAL VACCINE 50+ YEARS (1 of 1 - PCV) 06/19/19 92 ZOSTER VACCINE (1 of 2) 1992 OSTEOPOROSIS SCREENING 2007 RSV VACCINE (60+ or ) (1 - 1-dose 75+ series) 2017 INFLUENZA VACCINE (#1) 2025 Care Teams Sr Risk Management Consultant Relationship Specialty Start Date End Date Robbi Cervantes MD [address] [facility] [address] [place] [address] PCP - General Internal Medicine 04/05/22
--- OUTSIDE RECORDS SUMMARY | 2025-05-10 14:45 | XMS_ITS | Clinical Summary ---
Author Organization [facility] Address [address] [place] [address] Care Team Providers Care Journeyman Patternmaker Name Role Phone Robbi Cervantes MD Primary Care Provider [phone] Hieu Levin MD Unavailable [phone] Source Comments [facility],non-owned Affiliates and Associated Physician Practices is amultiple site organization consisting of ambulatory clinics and hospital sitesin [place], [place], [place] and [place]. This disclosure is being madepursuant to the Care Everywhere program and may not contain all information available regarding this patient. Last updated 18.[facility] Allergies No known active allergies Medications * This document contains information received from the source organization and may not represent a complete record from that organization. * Be aware that medications may not be up to date on this document. Always verify current medications with the patient. omeprazole (PRILOSEC) 40 MG capsule Take by mouth daily before breakfast 8 Active diclofenac sodium (VOLTAREN) 1 % gel Apply 2 (two) g to affected area 4 times daily 100 g 1 Active pravastatin (PRAVACHOL) 40 MG tablet Take 1 (one) tablet by mouth once daily Active losartan (COZAAR) 100 MG tablet Take 1 (one) tablet by mouth once daily 1 Active DULoxetine (CYMBALTA) 60 MG capsule Take 1 (one) capsule by mouth every 24 hours Active aspirin EC (ECOTRIN) 81 MG tablet take 1 tablet by oral route every day Active fexofenadine (Keren) 180 MG tablet Take 1 (one) tablet by mouth once daily Active acetaminophen (Tylenol) 500 MG tablet Take 2 (two) tablets by mouth 3 times daily Maximum allowable Acetaminophen amount = 4 Grams (4000 mg) / 24 hours. 3 Active clonazePAM (KlonoPIN) 0.5 MG tablet Take 3 (three) tablets by mouth at bedtime 3 Active metFORMIN (Glucophage) 500 MG tablet Take 1 (one) tablet by mouth 2 times daily with morning and evening meal Active calcium carbonate-daniel min D 600-400 MG-UNIT tablet Take by mouth daily with food Active leflunomide (Arava) 20 MG tablet Take 1 (one) tablet by mouth once daily Active oxyCODONE, immediate release, (Roxicodone) 5 MG tabletIndicati ons:Bulging lumbar disc Take 1 (one) tablet by mouth every 4 hours as needed 3 Active oxyCODONE-acet aminophen (Percocet) 10-325 MG tabletIndicati ons:Bulging lumbar disc Take 1 (one) tablet by mouth every 8 hours as needed 3 Active Additional Information Patient not taking.Reported on 12/15/2023 apixaban (Eliquis) 5 MG tablet Take 1 (one) tablet by mouth 2 times daily for 4 days 3 Active gabapentin (Neurontin) 100 MG capsuleIndicat ions:Restless Leg Syndrome,SLEEP AND RESTLESS LEGS Take 1 (one) capsule by mouth 3 times daily Reasons: Restless Leg Syndrome, SLEEP AND RESTLESS LEGS 3 Active traZODone (Desyrel) 150 MG tablet Take 1 (one) tablet by mouth at bedtime 3 Active clotrimazole (Lotrimin AF) 1 % cream Apply to affected area 2 times daily as needed (dry itching skin areas) 3 Active lidocaine (Lidoderm) 5 % patch Apply 1 (one) patch to skin every 24 hours Apply patch to most painful area and remove after 12 hours. May reapply a new patch 12 hours later. 3 Active docusate sodium (Colace) 100 MG capsule Take 1 (one) capsule by mouth once daily 3 Active polyethylene glycol 3350 (Miralax) 17 g packet Take 17 (seventeen) g by mouth once daily 3 Active senna-docusate (Senokot-S) 8.6-50 MG tablet Take 2 (two) tablets by mouth at bedtime 3 Active metoprolol succinate XL 24hr (Toprol XL) 25 MG tablet Take 1 (one) tablet by mouth once daily 4 Active cephalexin (Keflex) 500 MG capsuleIndicat ions:Genitouri nary Infection Take 1 (one) capsule by mouth 4 times daily Reasons: Infection of Genitals and/or Urinary Tract 28 capsule 4 Active cyclobenzaprin e (Flexeril) 10 MG tabletIndicati ons:Muscle spasm Take 1 (one) tablet by mouth 3 times daily as needed for Muscle Spasms 90 tablet 2 4 Active Active Problems Problem Noted Date Diagnosed Date PVC's (premature ventricular contractions) 12/15 Bradycardia 12/15/2023 History of COVID-19 12/15/2023 Neck pain 08/21/2023 Lumbar back pain 08/21/2023 Bulging lumbar disc 08/21/2023 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 (AF LURIA, FLUZONE TRIVALENT; 6MO+) (IIV3) 11/19/2018,08/26/2014 Covid Pfizer primary monoval ent 12+ yr 0.3mL Purple cap 12/12/2020,11/24/2020 INFLUENZA VACCINE, HIGH-DOSE , QUADR. (FLUZONE HIGH-DOSE QUADRIVALENT; 65Y+), 0.7 ML (HD-IIV4) 06/24/2020,08/19/2019 PNEUMOCOCCAL PCV7 CONJ, PEDS 11/09/2013 ZOSTER VACCINE, LIVE 08/26/2014 Family History Medical History Relation Name Comments CAD (Coronary Artery Disease) Father Diabetes - Type 2 Mother Hypertension Mother Relation Name Status Comments Father Mother Social History Tobacco Use Types Packs/Day Years Used Date Smoking Tobacco: Never Smokeless Tobacco: Never Tobacco Cessation:Counseling Given: Not Answered Alcohol Use Standard Drinks/Week Comments No 0 (1 standard drink = 0.6 oz pur e alcohol) AUDIT-C Answer Date Recorded Q1: How often do you have a drink containing alcohol? Never 03/17/2023 Q2: How many drinks containi ng alcohol do you have on a typical day when you are drinking? Patient does not drink Q3: How often do you have si x or more drinks on one occasion? Never 03/17/2023 Overall Financial Resource Strain (CARDIA) Answe r Date Recorded How hard is it for you to pa y for the very basics like food, housing, medical care, and heating? Not hard at all 03/18/2023 PHQ-2 Answer Date Recorded PHQ2 TOTAL SCORE 0 04/28/2022 [facility] - Occupational Stress Questionnaire Answer Date Recorded Do you feel stress - tense, restless, nervous, or anxious, or unable to sleep at night because your mind is troubled all the time - these days? Very much 03/18/2023 Hunger Vital Sign Answer Date Recorded Within the past 12 months, y ou worried that your food would run out before you got the money to buy more. Never true 03/18/20 23 Within the past 12 months, t he food you bought just didn't last and you didn't have money to get more. Never true 03/18/2023 PRAPARE - Transportation Answer Date Re corded In the past 12 months, has l ack of transportation kept you from medical appointments or from getting medications? No 02/28 In the past 12 months, has l ack of transportation kept you from meetings, work, or from getting things needed for daily living? No 03/18/2023 Housing Stability Vital Sign Answer Yinka e Recorded In the last 12 months, was t here a time when you were not able to pay the mortgage or rent on time? No 03/18/2023 In the last 12 months, how many places have you lived? 1 03/18/2023 In the last 12 months, was t here a time when you did not have a steady place to sleep or slept in a detention (including now)? 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 Gender Identity Not on file Sexual Orientation Not on file Last Filed Vital Signs Vital Sign Reading Time Taken Comments Blood Pressure 150/55 05/18/2024 10:51 AM CDT Pulse 96 05/18/2024 11:38 AM CDT Temperature 36.6 C (97.9 F) 05/18/2024 10:51 AM CDT Respiratory Rate 20 05/18/2024 10:51 AM CDT Oxygen Saturation 96% 05/18/2024 11:38 AM CDT Inhaled Oxygen Concentration - - Weight 67.1 kg (148 lb) 02/20/2024 11:52 AM CDT Height 162.6 cm (5' 4) 02/20/2024 11:52 AM CDT Body Mass Index 25.4 02/20/2024 11:52 AM CDT Plan of Treatment Health Maintenance Due Date Last Done Comments MEDICARE AWV 12 MONTHS 1942 DTAP/TDAP/TD VACCINES (1 - Tdap) 1961 PNEUMOCOCCAL VACCINE 50+ (1 of 2 - PCV) 1961 ZOSTER VACCINE (2 of 3) 10/21/2014 08/26/2014 Respiratory Syncytial Virus (RSV) Vaccine Pt: or over 60 yrs (1 - 1-dose 75+ series) 2017 DIABETES RETINOPATHY SCREENING 05/12/2021 DIABETES-FOOT EXAM WITH MONOFILAMENT 05/12/2021 DIABETES-HGB A1C 02/20/2024 08/21/2023, , 01/18/2018 COVID-19 VACCINE (3 - season) 2024 12/12/2020, 11/24/2020 DEPRESSION SCREENING 10/31/2024 04/27/2022 DIABETES - URINE PROTEIN SCREENING 10/31/2024 DIABETES-SERUM CREATININE 01/12/20252023, 08/21/2023, 08/20/2023, Additional history exists INFLUENZA VACCINE (#1) 2025 , 08/19/2019, 11/19/2018, Additional history exists BONE DENSITY TESTING Completed 05/09/2019, 05/17/2016, 05/21/2013 HEPATITIS B VACCINE Aged Out No longe r eligible based on patient's age to complete this topic HIB VACCINE Aged Out No longer eligi ble based on patient's age to complete this topic HPV VACCINE Aged Out No longer eligi ble based on patient's age to complete this topic MENINGOCOCCAL (Group B) VACCINE SHARED DECISION-MAKING Aged Out No longer eligible based on patient's age to complete this topic MENINGOCOCCAL GROUPS A/C/Y/W VACCINE Aged Out No longer eligible based on patient's age to complete this topic Medical Devices Implanted Type Area Eye Glass Frame Polisher Device Identifier Shelf Expiration Date Model / Serial / Lot 2.5 X 20mm Headless Screw Implanted:Qty: 1 on 09/03/2020 by Serge Oswald MD at [facility][note 3] Left: Foot [employer] [id number] / / Screw 2mm .87mm 12mm Slf-Tap Slf Rm Implanted:Qty: 2 on 09/03/2020 by Serge Oswald MD at [facility][note 3] Left: Foot [employer] [id number] / / Explanted Type Area Eye Glass Frame Polisher Device Identifier Shelf Expiration Date Model / Serial / Lot Plates And Screws Explanted:Qty: 1 on 09/03/2020 by Serge Oswald MD at [facility][note 3] Left: Foot UNKNOWN / / Procedures Procedure Name Priority Date/Time Associated Diagnosis Comments COMPREHENSIVE METABOLIC PANEL STAT 01/13/2024 3:37 PM CDT HEMOGLOBIN A1C Add on 08/21/2023 3:36 AM CDT Diabetes mellitus type 2, noninsulin dependent DEXA BONE DENSITY 2 SITES Routine 05/17/2016 12:44 PM CDT Encounter for screening for osteoporosis from Last 3 Months or Most Recently Relevant to Health Maintenance Results * (ABNORMAL) COMPREHENSIVE METABOLIC PANEL (01/13/2024 3:37 PM CDT) Glucose 207(H) 70 - 105 mg/dL 01/13/2024 4:03 PM CDT [facility] Sodium 142 136 - 145 mmol/L 01/13/2024 4:03 PM CDT [facility] Potassium 4.4 3.5 - 5.1 mmol/L 01/13/2024 4:03 PM CDT [facility] Chloride 107 98 - 107 mmol/L 01/13/2024 4:03 PM CDT [facility] CO2 25 22 - 29 mmol/L 01/13/2024 4:03 PM [facility] Calcium 9.4 8.4 - 10.4 mg/dL 01/13/2024 4:03 PM [facility] Anion Gap 10 6 - 16 mmol/L 01/13/2024 4:03 PM T [facility] BUN 35(H) 7 - 26 mg/dL 01/13/2024 4:03 PM T [facility] Creatinine 1.21(H) 0.57 - 1.11 mg/dL 01/13/2024 4:03 PM [facility] Alkaline Phosphatase 60 40 - 150 U/L 01/13/2024 4:03 PM T [facility] ALT 13 0 - 55 U/L 01/13/2024 4:03 PM T [facility] AST 19 5 - 34 U/L 01/13/2024 4:03 PM [facility] Protein Total 6.7 6.4 - 8.3 gm/dL 01/13/2024 4:03 PM [facility] Albumin 3.4 3.4 - 5.0 gm/dL 01/13/2024 4:03 PM [facility] Bilirubin Total 0.6 0.2 - 1.2 mg/dL 01/13/2024 4:03 PM [facility] eGFR by CKD-EPI 45(L) >=90 mL/min/1.7 3 m2 01/13/2024 4:03 PM [facility] Blood BLOOD SPECIMEN / Unknown Venipuncture / Unknown 01/13/2024 3:37 PM CDT 01/13/2024 3:42 PM CDT Sharyn Giordano DO LAB - CHEMISTRY ORDERABLES Fi nal Result Performing Organization Address [facility]/ZIP Co de Phone Number [facility] [address] [place] [address] * (ABNORMAL) HEMOGLOBIN A1C (08/21/2023 3:36 AM CDT) Hemoglobin A1c 6.2(H) <5.7 % 08/21/2023 5:41 AM CDT [facility] Estimated Average Glucose 131 mg/dL 08/21/2023 5:41 AM CDT [facility] Blood BLOOD SPECIMEN / Unknown Lab Venipuncture / Unknown 08/21/2023 3:36 AM CDT 08/21/2023 3:56 AM CDT Narrative [facility] - 08/21/2023 5:41 AM CDT HbA1c Interpretation: Normal: < 5.7% Pre-diabetes: 5.7-6.4% Diabetes: Equal to or greater than 6.5% Test results diagnostic of diabetes should be repeated for confirmation. Treatment target values recommended by ADA and other clinical organizations should be used to evaluate metabolic control in patients. This test should not replace glucose testing for patients with Type 1 diabetes, pediatric patients, or women. Falsely low HbA1c results may be observed in patients with clinical conditions that shorten erythrocyte life span or decrease mean erythrocyte age such as the presence of unstable hemoglobin variants, elevated hemoglobin F level or other causes of hemolytic anemia. HbA1c may not accurately reflect glycemic control when clinical conditions that affect erythrocyte survival are present. Severe Iron deficiency anemia may yield falsely high results. Hemoglobin A1c assay should not be used to diagnose or monitor diabetes in patients with malignancy, recent blood transfusion, chronic kidney or liver disease. This method may yield falsely low results when hemoglobin (HbF) exceeds 5% in the specimen. The Cervantes Alinity assay for the measurement of HbA1c is a National Glycohemoglobin Standardization Program (NGSP) certified method. Tiara Sotelo MD LAB - CHEMISTRY ORDERABLES Final Result [facility] [address] [place] [address] * DEXA BONE DENSITY 2 SITES (05/17/2016 12:44 PM CDT) Anatomical Region Laterality Modality Nuclear Medicine 05/17/2016 12:5 9 PM CDT Impressions 05/17/2016 1:01 PM CDT Normal bone mineral density of the hips. WORLD HEALTH ORGANIZATION DEFINITIONS NORMAL= T-Score at or above -1.0 SD OSTEOPENIA = T-Score between -1 and -2.5 SD OSTEOPOROSIS = T-Score at or below -2.5 SD Narrative 05/17/2016 1:01 PM CDT BONE MINERAL DENSITY STUDY: INDICATION: 75-year-old for osteoporosis screening. Past medical history is significant for lumbar spine surgery. FINDINGS: The mean bone mineral content of the left femoral neck is 1.049 g/cm2. The T-score is 0.1 consistent with normal bone mineral density. The mean bone mineral content of the right femoral neck is 0.968 g/cm2. The T-score is -0.5 consistent with normal bone mineral density. Procedure Note Celi Gillette DO - 05/17/2016 BONE MINERAL DENSITY STUDY: INDICATION: 75-year-old for osteoporosis screening. Past medical history is significant for lumbar spine surgery. FINDINGS: The mean bone mineral content of the left femoral neck is 1.049 g/cm2. The T-score is 0.1 consistent with normal bone mineral density. The mean bone mineral content of the right femoral neck is 0.968 g/cm2. The T-score is -0.5 consistent with normal bone mineral density. IMPRESSION Normal bone mineral density of the hips. WORLD HEALTH ORGANIZATION DEFINITIONS NORMAL= T-Score at or above -1.0 SD OSTEOPENIA = T-Score between -1 and -2.5 SD OSTEOPOROSIS = T-Score at or below -2.5 SD Robbi Cervantes MD DEXA ORDERABLES Final Result from Last 3 Months or Most Recently Relevant to Health Maintenance Insurance [facility] MEDICARE [employer] MEDICARE ADV PPO Advance Directives * Full Code (Latest Code Status on File) Date Activated Date Inactivated Comments 08/21/2023 2:13 AM 08/29/2023 3:24 PM * Full Code Date Activated Date Inactivated Comments 03/16/2023 10:18 PM 03/22/2023 7:20 PM * Full Code Date Activated Date Inactivated Comments 04/28/2022 1:43 AM 05/05/2022 6:59 PM Care Teams Journeyman Patternmaker Relationship Specialty Start Date End Date Robbi Cervantes MD [address] [place] [id number] PCP - General Internal Medicine 10/03/14 Hieu Levin MD [address] [facility] [address] [place] [address] Cardiovascular Disease 05/12/21
--- OUTSIDE RECORDS SUMMARY | 2025-05-10 14:45 | XMS_ITS | Encounter Summary ---
Author Organization [facility] Address [address] [place] [address] Care Team Providers Care Fur Liner Name Role Phone Robbi Cervantes MD Primary Care Provider [phone] Hieu Levin MD Unavailable [phone] Reason for Visit * Reason Comments Refill Request Encounter Details Date Type Department Care Team (Late st Contact Info) Description 02/19/2019 Refill [facility] [address] [place] [address] [place] [address] [phone] Refill Request Social History Tobacco Use Types Packs/Day Years Used Date Smoking Tobacco: Never Smokeless Tobacco: Never Alcohol Use Standard Drinks/Week Comments No 0 (1 standard drink = 0.6 oz pur e alcohol) Comments Unknown Sex and Gender Information Value Date Recorded Sex Assigned at Not on file 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 Answer Date of Assessment Author No 10/25/2018 2:59 PM Jam Varghese RN * Is person blind or have serious difficulty seeing? Answer Date of Assessment Author No 10/25/2018 2:59 PM Jam Varghese RN * Does person have serious difficulty walking/climbing stairs? Answer Date of Assessment Author No 10/25/2018 2:59 PM Jam Varghese RN * Does person have difficulty dressing/bathing? Answer Date of Assessment Author No 10/25/2018 2:59 PM Jam Varghese RN * Does person have difficulty doing errands alone? Answer Date of Assessment Author No 10/25/2018 2:59 PM Jam Varghese RN documented as of this encounter Mental Status * Does person have difficulty concentrating/remembering/making decisions? Answer Entry Date Author No 10/25/2018 2:59 PM Jam Varghese RN documented in this encounter Plan of Treatment Not on file documented as of this encounter Visit Diagnoses Not on filedocumented in this encounter Additional Health Concerns Infection Onset Date Last Indicated Resolved Time COVID-19 Under Investigation 08/30/2020 08/30/2020 08/30/2020 7:44 PM CDT documented as of this encounter Care Teams Fur Liner Relationship Specialty Start Date End Date Robbi Cervantes MD [address] [place] [address] [address] [place] [address] PCP - General Internal Medicine 10/03/14 Hieu Levin MD [address] [place] [address] [facility] [address] [place] [address] Cardiovascular Disease 05/12/21 documented as of this encounter
--- OUTSIDE RECORDS SUMMARY | 2025-05-10 14:46 | XMS_ITS | Clinical Summary ---
Author Organization [facility] Address [address] [place] [address] Care Team Providers Care Motion Picture Set Grip Name Role Phone Scotty Diaz MD Primary Care Provider [phone] Allergies Active Allergy Reactions Criticality Noted Date Comments Tape Redness 03/12/2025 Medications cetirizine (ZYRTEC) 10 MG tablet Take 1 tablet (10 mg total) by mouth daily. Active leflunomide (ARAVA) 20 MG tablet Take 1 tablet (20 mg total) by mouth daily. Active pravastatin (PRAVACHOL) 40 MG tablet Take 1 tablet (40 mg total) by mouth nightly at bedtime. Active Senna (SENOKOT) 8.6 MG tablet Take 2 tablets (17.2 mg total) by mouth daily as needed for Constipation. Active traZODone (DESYREL) 100 MG tablet Take 1 tablet (100 mg total) by mouth nightly at bedtime. Active busPIRone (BUSPAR) 15 MG tablet Take 1 tablet (15 mg total) by mouth 2 (two) times daily. Active pantoprazole EC (PROTONIX) 40 MG tablet Take 1 tablet (40 mg total) by mouth 2 (two) times daily. Active multi vitamin/minera ls (THERA-M ENHANCED) tablet Take 1 tablet by mouth daily. Active diclofenac sodium (VOLTAREN) 1 % gel Apply 2 g topically 4 (four) times daily. Active furosemide (LASIX) 20 MG tablet Take 1 tablet (20 mg total) by mouth 3 (three) times a week. And as needed for weight gain over 138 lbs. Active zolpidem (AMBIEN) 5 MG tablet Take 1 tablet (5 mg total) by mouth nightly as needed. FOR SLEEP 02/19/20 25 Active metFORMIN (GLUCOPHAGE) 500 MG tablet Take 1 tablet (500 mg total) by mouth 2 (two) times daily with meals. 08/10/20 24 Active menthol-zinc oxide (CALMOSEPTINE) 0.44-20.6 % ointment Apply topically 3 (three) times daily. Active benzocaine-men thol (CHLORASEPTIC) 6-10 MG Lozenge Take 1 lozenge by mouth. Active lidocaine (LIDODERM) 5 % Place 1 patch onto the skin daily. 02/08/20 25 Active loperamide (IMODIUM) 2 MG capsule Take 1 capsule (2 mg total) by mouth every 6 (six) hours as needed for Diarrhea. 03/11/20 25 Active ondansetron (ZOFRAN) 4 MG tablet Take 1 tablet (4 mg total) by mouth every 4 (four) hours as needed for Nausea. Active ondansetron (ZOFRAN) 4 MG tabletIndicati ons:Nausea & vomiting Take 1 tablet (4 mg total) by mouth every 6 (six) hours as needed for Nausea. 20 tablet 03/26/20 25 Active calcium carbonate (TUMS) 500 MG chewable tabletIndicati ons:Acid reflux Chew 2 tablets (1,000 mg total) by mouth every 4 (four) hours as needed for Heartburn. 360 tablet 3 03/27/20 25 Active Humidifier MiscIndication s:Chronic respiratory failure with hypoxia ([facility]) 1 Device by Does not apply route daily. Oxygen humidifier 1 each 04/03/20 25 Active ADEMPAS 2 MG tablet Take 1 tablet (2 mg total) by mouth 3 (three) times daily. 03/29/20 25 Active DULoxetine (CYMBALTA) 60 MG capsuleIndicat ions:Anxiety Take 1 capsule (60 mg total) by mouth daily. 30 capsule 5 04/15/20 25 Active sulfamethoxazo le-trimethopri m (BACTRIM) 400-80 MG tabletIndicati ons:Recurrent UTI Take 1 tablet by mouth daily. DAILY RX 30 tablet 04/25/20 25 Active warfarin (COUMADIN) 5 MG tabletIndicati ons:Pulmonary emboli (CMS/HCC HHS/HCC) Take 1 tablet (5 mg total) by mouth daily. 30 tablet 05/02/20 25 Active hydrOXYzine (ATARAX) 10 MG tabletIndicati ons:Anxiety TAKE ONE TABLET BY MOUTH THREE TIMES DAILY NEEDED FOR anxiety 60 tablet 2 05/10/20 25 Active acetaminophen CR (TYLENOL) 650 MG Tab CR 8 hr tabletIndicati ons:Neuropathy TAKE ONE TABLET BY MOUTH EVERY 6 HOURS NEEDED FOR MILD PAIN 28 tablet 05/10/20 25 Active riociguat (ADMEPAS) 1.5 MG tablet Take 1 tablet (1.5 mg total) by mouth 3 (three) times daily. 025 Discontinued(Do se adjustment) acetaminophen CR (TYLENOL) 650 MG Tab CR 8 hr tablet Take 1 tablet (650 mg total) by mouth every 6 (six) hours as needed. 025 Discontinued DULoxetine (CYMBALTA) 30 MG capsuleIndicat ions:Anxiety Take 1 capsule (30 mg total) by mouth daily. 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 90 tablet 03/26/20 25 025 Discontinued(Do se adjustment) warfarin (COUMADIN) 1 MG tabletIndicati ons:Pulmonary emboli (CMS/HCC HHS/HCC) Take 1 tablet (1 mg total) by mouth daily. 90 tablet 04/01/20 25 025 Discontinued(Do se adjustment) hydrOXYzine (ATARAX) 10 MG tabletIndicati ons:Anxiety Take 1 tablet (10 mg total) by mouth 3 (three) times daily as needed for Anxiety. 30 tablet 04/08/20 25 025 Discontinued sulfamethoxazo le-trimethopri m (BACTRIM) 400-80 MG tabletIndicati ons:UTI (urinary tract infection) Take 1 tablet by mouth 2 (two) times daily for 7 days. ACUTE RX 14 tablet 04/25/20 25 025 hydrOXYzine (ATARAX) 10 MG tabletIndicati ons:Anxiety TAKE ONE TABLET BY MOUTH THREE TIMES DAILY NEEDED FOR anxiety 30 tablet 04/30/20 25 025 Discontinued Active Problems Problem Noted Date Diagnosed Date Pulmonary emboli ([facility]) 03/26/2025 Severe malnutrition ([facility]) 01/16/2025 Overview (01/16/2025): Malnutrition Classification: Severe Malnutrition Severe malnutrition associated with acute disease or injury related to physiological causes increasing nutrient needs secondary to current illness as evidenced by unintended weight loss of 7.9% in 1 month and moderate fat loss noted in the following areas: orbital and buccal. Pulmonary hypertension ([facility]) 025 TARIQ (acute kidney injury) 01/05/2025 Frequent falls 01/03/2025 History of pulmonary embolism 12/12/2024 Chronic respiratory failure ([facility]) Type 2 diabetes mellitus wit h circulatory disorder, without long-term current use of insulin ([facility]) 12/12/2024 Chronic heart failure with p reserved ejection fraction ([facility]) 12/12/2024 Mixed hyperlipidemia 12/12/2024 Anxiety 12/12/2024 Other insomnia 12/12/2024 Rheumatoid arthritis involvi ng multiple sites with positive rheumatoid factor ([facility]) 12/12/2024 Neuropathy 12/12/2024 Essential (primary) hypertension Encounters Date Type Department Care Team Description 05/10/2025 Telephone [facility] Family Internal [address] [address] Scotty Diaz MD Xray/ultrasound Order 05/09/2025 Telephone [facility] Family Internal [address] [place] [address] Scotty Diaz MD Anticoagulation 05/02/2025 Telephone [facility] Internal [address] [place] [address] Scotty Diaz MD Anticoagulation 04/26/2025 Telephone [facility] Family Internal [address] [address] Scotty Diaz MD Results 04/26/2025 Telephone [facility] Internal [address] [address] Scotty Diaz MD Results 04/19/2025 Scan [facility] SRVCS Scanned, [facility] 04/19/2025 Telephone [facility] Internal [address] [address] Scotty Diaz MD Anticoagulation 04/18/2025 Telephone [facility] Internal [address] [address] Scotty Diaz MD Anticoagulation 04/16/2025 Scan [facility] INFO SRVCS Scanned, [facility] Lab (SCAN) 04/15/2025 1:40 PM CDT Office Visit [address] [address] Scotty Diaz MD Follow Up; Anxiety (Duloxetine f/u - pt's daughter notes patient is still very anxious); UTI (Patient's daughter is wondering if patient could be checked for a UTI, no current symptoms but recent infection. ) 04/15/2025 - 04/15/2025 11:59 PM CDT Hospital Encounter [facility] [address] [place] [address] Scotty Diaz MD Discharge Disposition: Home or Self Care (Routine Discharge) 04/15/2025 Results Follow-Up [facility] Internal [address] [address] Scotty Diaz MD URINALYSIS AUTO DIP, URINE BACTERIA CULTURE 04/15/2025 Travel 04/06/2025 [facility] Documentation [address] [address] Oskar Borjas, DO After Hours Page 04/04/2025 Scan [facility] INFO SRVCS Scanned, [facility] Lab (SCAN) 04/03/2025 Telephone [facility] Family Internal [address] [place] [address] Scotty Diaz MD Nose Problem (Epistaxis) 04/02/2025 Scan [facility] INFO SRVCS Scanned, [facility] 04/01/2025 Scan [facility] SRVCS Scanned, [facility] 04/01/2025 Telephone [facility] Internal [address] [address] Scotty Diaz MD Anticoagulation 03/28/2025 Scan [facility] INFO SRVCS Scanned, [facility] Lab (SCAN) 03/27/[address] [address] Scotty Diaz MD Medication Request 03/26/2025 Telephone [facility] Internal [address] [address] Scotty Diaz MD Nausea 03/26/2025 Patient Outreach [address] [address] Yuko Stone, RN Hospital Follow Up (Tcm #1) 03/22/2025 Scan [facility] INFO SRVCS Scanned, [facility] Lab (SCAN) 03/22/2025 Telephone [facility] Internal [address] [address] Scotty Diaz MD Medication Request 03/15/2025 Telephone [facility] Internal [address] [address] Scotty Diaz MD Anticoagulation (/) 03/12/2025 1:00 PM CDT Office Visit [facility] Internal [address] [address] Scotty Diaz MD Hospital F/U (Patient was admitted to [facility] 01/18 - 02/07 for pulmonary hypertension. ); Anxiety (Patient's medication was change at [facility], the family has noticed she is unusually anxious, flat affect, and seems more depressive than normal. Patient's family is wondering if patient needs to be referred to psychiatry for further mental evaluation. ); Lab Order (intermediate is requesting a standing order for weekly INR's, eliquis was changed to warfarin during hospitalization. ); Fatigue (Family is requesting a UA since patient has been having frequent UTI's ) 03/12/2025 Scan HEALTH INFO SRVCS Scanned, Doc [facility] 03/12/2025 Telephone [facility] Family Internal [address] [address] Scotty Diaz MD Medication Reconciliation 03/12/2025 Travel 03/11/2025 Scan [facility] INFO SRVCS Scanned, Doc [facility] 03/11/2025 Patient Outreach [facility] Family & Internal [address] [address] Yuko Stone RN Hospital Follow Up 03/06/2025 Patient Outreach [facility] Family Internal [address] [address] Yuko Stone, RN Hospital Follow Up 03/04/2025 Patient Outreach [facility] Internal [address] [address] Yuko Stone, RN Hospital Follow Up 03/01/2025 Patient Outreach [facility] Family Internal [address] [address] Yuko Stone, RN Hospital Follow Up 02/26/2025 Patient Outreach [facility] Internal [address] [address] Yuko Stone, [facility] Hospital Follow Up 02/20/2025 Patient Outreach [facility] Family Internal [address] [address] Yuko Stone RN Hospital Follow Up 02/12/2025 Patient Outreach [facility] & Internal [address] [address] Yuko Stone RN Hospital Follow Up 02/08/2025 Patient Outreach [facility] Internal [address] [address] Yuko Stone RN Hospital Follow Up (Admit to SNF ) from Last 3 Months Immunizations Immunization Administration Dates Next Due Pneumococcal (Prevnar 7) 11/09/2013 Tdap (Generic) 11/22/2022 Zoster (Zostavax) 71858 Unt/0.65Ml 08/26/2014 Family History Medical History Relation Comments Hypertension Brother Hypertension Child Hypertension Daughter Hypertension Father Arthritis Mother Diabetes Mother Hypertension Mother Hypertension Sister Hypertension Son Relation Status Comments Brother Alive Child Alive Daughter Father Alive Mother Sister Alive Son Social History Tobacco Use Types Packs/Day Years Used Date Smoking Tobacco: Never Smokeless Tobacco: Never Tobacco Cessation:Counseling Given: Not Answered Alcohol Use Standard Drinks/Week Comments Never 0 (1 standard drink = 0.6 oz pur e alcohol) [facility] [employer] Answer Date Recorded In the past 12 months has e Brandicted, gas, oil, or water [employer] threatened to shut off services in your home? No 01/04/2025 Humiliation, Afraid, Rape, and Kick questionnair e Answer Date Recorded Within the last year, have y ou been afraid of your partner or ex-partner? No 01/04/2025 Within the last year, have y ou been humiliated or emotionally abused in other ways by your partner or ex-partner? No Within the last year, have y ou been kicked, hit, slapped, or otherwise physically hurt by your partner or ex-partner? No 01/04/2025 Within the last year, have y ou been raped or forced to have any kind of sexual activity by your partner or ex-partner? No 01/04/2025 AUDIT-C Answer Date Recorded Q1: How often do you have a drink containing alcohol? Never 01/04/2025 Q2: How many drinks containi ng alcohol do you have on a typical day when you are drinking? Patient does not drink Q3: How often do you have si x or more drinks on one occasion? Never 01/04/2025 Overall Financial Resource Strain (CARDIA) Answe r Date Recorded How hard is it for you to pa y for the very basics like food, housing, medical care, and heating? Not hard at all 01/04/2025 PHQ-2 Answer Date Recorded Patient Health Questionnaire-2 Score 3 12/12/2024 Hunger Vital Sign Answer Date Recorded Within the past 12 months, y ou worried that your food would run out before you got the money to buy more. Never true 01/05/20 25 Within the past 12 months, t he food you bought just didn't last and you didn't have money to get more. Never true 01/04/2025 PRAPARE - Transportation Answer Date Re corded In the past 12 months, has l ack of transportation kept you from medical appointments or from getting medications? No 04/2025 In the past 12 months, has l ack of transportation kept you from meetings, work, or from getting things needed for daily living? No 01/04/2025 Housing Stability Vital Sign Answer Yinka e Recorded In the last 12 months, was t here a time when you were not able to pay the mortgage or rent on time? No 01/04/2025 In the past 12 months, how m any times have you moved where you were living? 0 01/04/2025 At any time in the past 12 m [facility], were you homeless or living in a long-term (including now)? No 01/04/2025 Comments No Sex and Gender Information Value Date Recorded Sex Assigned at Female 12/12/2024 12:17 PM DIRECTOR PERSONAL Legal Sex Female 9:27 AM CDT Gender Identity Female 12/12/2024 12:17 PM DIRECTOR PERSONAL Sexual Orientation Not on file Last Filed Vital Signs Vital Sign Reading Time Taken Comments Blood Pressure 112/68 04/15/2025 1:40 PM CDT Pulse 89 04/15/2025 1:40 PM CDT Temperature 36.9 C (98.4 F) 04/15/2025 1:40 PM CDT Respiratory Rate 12 04/15/2025 1:40 PM CDT Oxygen Saturation 95% 04/15/2025 1:4 0 PM CDT on 3L 02 continous Inhaled Oxygen Concentration - - Weight 60.8 kg (134 lb 1.6 oz) 04/15/2025 1:40 PM CDT Height 167.6 cm (5' 6) 04/15/2025 1:40 PM CDT Body Mass Index 21.64 04/15/2025 1:40 PM CDT Plan of Treatment Upcoming Encounters Date Type Department Care Team (Late st Contact Info) Description 06/18/2025 1:40 PM CDT Office Visit [facility] Medical Group Family & Internal Medicine [id number] [place] [phone] Scotty Diaz MD [address] [place] [address] [phone] Health Maintenance Due Date Last Done Comments ASCVD LDL 1942 Kidney Health Evaluation 1942 Diabetes: Retinopathy Eye Exam 1960 Pneumococcal Vaccine: 50+ Years (1 of 2 - PCV) 1961 11/09/2013 Annual Medicare Wellness Visit 2007 Zoster Vaccines (2 of 3) 10/21/2014 08/26/2014 RSV Immunization or 60+ Years (1 - 1-dose 75+ series) 2017 Lipid Panel 04/28/2023 04/28/2022 COVID-19 Vaccine ( season) 2024 09/15/2022, 09/11/2021, 12/12/2020, Additional history exists Hemoglobin A1C 07/06/2025 01/03/2025, 08/01, 04/28/2022 DTaP, Tdap and Td Vaccines (2 - Td or Tdap) 11/22/2032 11/22/2022 Dexa Scan (General) Completed 05/09/2019, 05/09/2019, 05/17/2016, Additional history exists PHQ-2 (Physician [place]) Completed 12/12/2024 Meningococcal B Vaccine Aged Out No l onger eligible based on patient's age to complete this topic Meningococcal Vaccine Aged Out No shalom wilber eligible based on patient's age to complete this topic RSV Immunizations Under 20 Months Aged Out No longer eligible based on patient's age to complete this topic Procedures Procedure Name Priority Date/Time Associated Diagnosis Comments PT/INR (OUTSIDE LAB) Routine 05/07/2025 PT/INR (OUTSIDE LAB) Routine 05/02/2025 PT/INR (OUTSIDE LAB) Routine 04/17/2025 OUTSIDE PT/INR (SCAN ORDER) 04/16/2025 URINE BACTERIA CULTURE Routine 04/15/2025 2:42 PM CDT Leukocytes in urine URINALYSIS AUTO DIP Routine 04/15/2025 Urinary tract infection without hematuria, site unspecified OUTSIDE PT/INR (SCAN ORDER) 04/04/2025 OUTSIDE PT/INR (SCAN ORDER) 03/28/2025 PT/INR (OUTSIDE LAB) Routine 03/28/2025 OUTSIDE PT/INR (SCAN ORDER) 03/22/2025 PT/INR (OUTSIDE LAB) Routine 03/22/2025 URINALYSIS Routine 03/13/2025 12:00 AM CDT Frequent UTI HEMOGLOBIN, GLYCOSYLATED Routine 01/03/2025 5:45 PM DIRECTOR PERSONAL from Last 3 Months or Most Recently Relevant to Health Maintenance Results * PT/INR (OUTSIDE LAB) (05/07/2025) Only the most recent of5 resultswithin the time period is included. INR WHOLE BLOOD 1.99 05/07/2025 us Default History Genericprovider LAB-OUTSIDE/ABST RACTED Final Result * OUTSIDE PT/INR (SCAN ORDER) (04/16/2025) Only the most recent of4 resultswithin the time period is included. 04/16/2025 us Doc [facility] Scanned SCANNING Final Resu lt * (ABNORMAL) URINE BACTERIA CULTURE (04/15/2025 2:42 PM CDT) SPEC DESCRIPTION URINE VOIDED 04/15/2025 2:42 PM CDT [facility] SPECIAL REQUESTS NO SPECIAL REQUEST 04/15/2025 2:42 PM CDT [facility] CULTURE RESULT EQUAL OR >100,000 CFU/mL ESCHERICHIA COLI, EXTENDED SPECTRUM BETA LACTAMASE TIRE BAGGER (A) 04/19/2025 8:26 AM CDT [facility] URINE SPECIMEN FROM URETHRA / Unknown 04/15/2025 2:42 PM CDT 04/15/2025 8:45 PM CDT Narrative Organism Antibiotic Method Susceptibility Escherichia coli, extended spectrum beta lactamase morning show newscast producer ESBL CH[place]YERE (VITEK) POSITIVE: Resistant Escherichia coli, extended spectrum beta lactamase morning show newscast producer AMPICILLIN CH[place]YERE (VITEK) Resistant Escherichia coli, extended spectrum beta lactamase morning show newscast producer AMOXICILLIN/CLAVULANIC A [place]ERE (VITEK) Sensitive Escherichia coli, extended spectrum beta lactamase morning show newscast producer PIPRACIL/TAZO [place]ERE (VITEK) Sensitive Escherichia coli, extended spectrum beta lactamase morning show newscast producer CEFAZOLIN (OTHER) CH[place]YERE (VITEK) Resistant Escherichia coli, extended spectrum beta lactamase morning show newscast producer CEFAZOLIN (URINE) CH[place]YERE (VITEK) Resistant Escherichia coli, extended spectrum beta lactamase morning show newscast producer CEFTRIAXONE [place]ERE (VITEK) Resistant Escherichia coli, extended spectrum beta lactamase morning show newscast producer CEFEPIME [place]YERE (VITEK) Sensitive Escherichia coli, extended spectrum beta lactamase morning show newscast producer AZTREONAM [place]YERE (VITEK) Sensitive Escherichia coli, extended spectrum beta lactamase morning show newscast producer ERTAPENEM [place]ERE (VITEK) Sensitive Escherichia coli, extended spectrum beta lactamase morning show newscast producer IMIPENEM CH[place]YERE (VITEK) Sensitive Escherichia coli, extended spectrum beta lactamase morning show newscast producer MEROPENEM CH[place]YERE (VITEK) Sensitive Escherichia coli, extended spectrum beta lactamase morning show newscast producer GENTAMICIN CHINYERE (VITEK) Sensitive Escherichia coli, extended spectrum beta lactamase morning show newscast producer CIPROFLOXACIN CH[place]YERE (VITEK) Resistant Escherichia coli, extended spectrum beta lactamase morning show newscast producer LEVOFLOXACIN CH[place]YERE (VITEK) Resistant Escherichia coli, extended spectrum beta lactamase morning show newscast producer TETRACYCLINE CH[place]YERE (VITEK) Resistant Escherichia coli, extended spectrum beta lactamase morning show newscast producer NITROFURANTOIN CH[place]YERE (VITEK) Sensitive Escherichia coli, extended spectrum beta lactamase morning show newscast producer TRIMETH-SULFAMETH. CH[place]YERE (VITEK) Sensitive Escherichia coli, extended spectrum beta lactamase morning show newscast producer FOSFOMYCIN CH[place]YERE (KB) Sensitive Scotty Diaz MD MICROBIOLOGY - GENERAL ORDERAB LES Final Result [facility] [address] [place] [address], [place] [phone] [id number] * (ABNORMAL) URINALYSIS AUTO DIP (04/15/2025) COLOR (U) YELLOW YELLOW [facility] TRANSPARENCY CLOUDY(A) CLEAR [facility] GLUCOSE (U) NEGATIVE NEGATIVE MG/DL [facility] BILIRUBIN (U) NEGATIVE NEGATIVE [facility] [place] KETONES MG/DL (U) NEGATIVE NEGATIVE MG/DL [facility] SPECIFIC GRAVITY (U) 1.020 1.001 - 1.035 [facility] [place] BLOOD (U) NEGATIVE NEGATIVE [facility] U PH 5.5 5.0 - 9.0 [facility] [place] PROTEIN (U) NEGATIVE NEGATIVE mg/dL [facility] [place] UROBILINOGEN 0.2 0.2 - 1.0 EU/dL = mg/dL [facility] [place] NITRITES NEGATIVE NEGATIVE MG/DL [facility] [place] LEUKOCYTES (U) TRACE(A) NEGATIVE [facility] URINE SPECIMEN FROM URETHRA / Unknown 04/15/2025 Scotty Diaz MD URINE ORDERABLES Final Result Performing Organization Address [facility]/ZIP Co de Phone Number [facility] [address] [place] [address], [place] * URINALYSIS (03/13/2025 12:00 AM CDT) URINE SPECIMEN OBTAINED BY CLEAN CATCH PROCEDURE / Unknown 03/13/2025 Scotty Diaz MD URINE ORDERABLES Final Result [facility] ONBASE * (ABNORMAL) HEMOGLOBIN, GLYCOSYLATED (01/03/2025 5:45 PM DIRECTOR PERSONAL) HGB A1C 7.2(H) <5.7 % 01/03/2025 7:51 PM DIRECTOR PERSONAL [facility] Comment: ADA GUIDELINES 2010 5.7 TO 6.4% INCREASED RISK OF DIABETES > OR = 6.5% CONSISTENT WITH DIABETES ESTIMATED AVG GLUCOSE 160 mg/dL 01/03/2025 7:51 PM DIRECTOR PERSONAL [facility] 01/03/2025 5:45 PM DIRECTOR PERSONAL Kike Palencia MD LABORATORY Final Result [facility] [id number], from Last 3 Months or Most Recently Relevant to Health Maintenance Additional Health Concerns Infection Onset Date Last Indicated ESBL - Extended Spectrum Beta-lactamase 04/15/20 25 04/15/2025 Insurance ESSENCE Advance Directives Documents on File Type Date Recorded Patient Business Quality Assurance Analyst Expl anation Advance Directives and Livin g Will 12/17/2024 6:59 AM POLST * POLST (Latest Code Status on File) Date Activated Date Inactivated Comments 01/03/2025 3:30 PM 01/18/2025 11:40 PM Question Answer Comments Cardiopulmonary Resuscitatio n (CPR) If patient has no pulse and is not breathing: ATTEMPT Resuscitation CPR Medical Interventions when N OT in Cardiopulmonary Arrest (If patient is found with a pulse and/or is breathing): Selective Treatment - Do NOT Intubate Selective Treatment Options: OxygenSucti onCPAP/BIPAPIV FluidsIV Medications Care Teams Motion Picture Set Grip Relationship Specialty Start Date End Date Scotty Diaz MD [address] [place] [id number] PCP - General INTERNAL MEDICINE 12/12/24
--- OUTSIDE RECORDS SUMMARY | 2025-05-10 14:46 | XMS_ITS | Clinical Summary ---
Author Organization [facility] Address [address] [place] [address] Phone Care Team Providers Care Mortgage Sales Manager Name Role Phone Robbi Cervantes MD Primary Care Provider [phone] Allergies Active Allergy Reactions Criticality Noted Date Comments Silicone Low 02/02/2018 Other reaction(s): Redness bandaids Medications glimepiride (AMARYL) 2 MG tablet 1 daily 0 11/03/2018 Active DULoxetine (CYMBALTA) [address] capsule 1 dailiy 0 11/03/2018 Activ e omeprazole (PriLOSEC) [address] capsule 1 daily 0 11/03/2018 Activ e polyethylene glycol (MIRALAX) powder as dir 0 11/03/2018 Active atenolol (TENORMIN) 25 MG tablet 1 dailiy 0 11/03/2018 Active fexofenadine (RONALD ALLERGY) 180 MG tablet 1 daily 0 11/03/2018 Active desoximetasone (TOPICORT) 0.25 % cream as dir 0 11/03/2018 Active pravastatin (PRAVACHOL) 40 MG tablet 1 daily 0 11/03/2018 Active alendronate (FOSAMAX) 70 MG tablet 10/03/2019 Active fluticasone (FLONASE) 50 MCG/ACT nasal spray 09/25/2019 Active leflunomide (ARAVA) 10 MG tablet 10/03/2019 Active valsartan (DIOVAN) 160 MG tablet 08/27/2019 Active ALPRAZolam (XANAX) 0.25 MG tablet 08/29/2019 Active acetaminophen-c odeine (TYLENOL #3) 300-30 MG per tablet Take 1 tablet by mouth every 30 minutes as needed 10/04/2014 Active aspirin 81 MG chewable tablet Chew 81 mg daily Active Biotin 10 MG capsule Take by mouth Active calcium carbonate (OS-ZURI) 600 MG tablet Take 1 tablet by mouth Active predniSONE (DELTASONE) 10 MG tablet 09/23/2019 Active traZODone (DESYREL) 100 MG tablet Take 300 mg by mouth daily Active Active Problems Problem Noted Date Diagnosed Date Type 2 diabetes mellitus without complication Abnormal result of kidney function study 019 Essential (primary) hypertension 11/06/2018 Hyperlipidemia 11/06/2018 Obstructive sleep apnea 11/06/2018 Osteoarthritis 11/06/2018 Major depressive disorder with single episode Immunizations Immunization Administration Dates Next Due Influenza TIV (IM) 11/19/2018 Pneumococcal Conjugate 11/09/2013 Family History Medical History Relation Comments Kidney disease Neg Hx Social History Tobacco Use Types Packs/Day Years Used Date Smoking Tobacco: Never Smokeless Tobacco: Never Alcohol Use Standard Drinks/Week Comments No 0 (1 standard drink = 0.6 oz pur e alcohol) Comments Unknown Sex and Gender Information Value Date Recorded Sex Assigned at Not on file Legal Sex Female 9:[address] [facility] Gender Identity Not on file Sexual Orientation Not on file Last Filed Vital Signs Vital Sign Reading Time Taken Comments Blood Pressure 126/64 11/05/2019 2:24 PM CAR AUDIO INSTALLER Pulse 60 11/05/2019 2:24 PM CAR AUDIO INSTALLER Temperature 35.9 C (96.6 F) 04/30/2019 3:08 PM CDT Respiratory Rate - - Oxygen Saturation - - Inhaled Oxygen Concentration - - Weight 94.3 kg (208 lb) 11/05/2019 2:24 PM CAR AUDIO INSTALLER Height 162.6 cm (5' 4) 11/05/2019 2:24 PM CAR AUDIO INSTALLER Body Mass Index 35.7 11/05/2019 2:24 PM CAR AUDIO INSTALLER Plan of Treatment Health Maintenance Due Date Last Done Comments Pneumococcal PPSV23/PCV13 65 + Years / Low and Medium Risk (1 of 2 - PCV) 1992 Influenza Vaccine (#1) 2025 11/19/2018 Insurance [employer] H[employer] Care Teams Mortgage Sales Manager Relationship Specialty Start Date End Date Robbi Cervantes MD [address] [address] PCP - General Internal Medicine 04/30/19
--- OUTSIDE RECORDS SUMMARY | 2025-05-10 14:46 | XMS_ITS | Encounter Summary ---
Author Organization [facility] Address [address] [place] [address] [place] [address] Care Team Providers Care Public Opinion Survey Taker Name Role Phone Robbi Cervantes MD Primary Care Provider [phone] Hieu Levin MD Unavailable [phone] Reason for Visit * Reason Onset Date Comments Results 01/06/2024 Encounter Details Date Type Department Care Team (Late st Contact Info) Description 01/06/2024 Telephone [facility] Heart & Vascular Care [facility] [address] [place] [address] Hieu Levin MD [address] [place] [address] [facility] [address] [place] [address] Results Social History Tobacco Use Types Packs/Day Years [...] Date Recorded PHQ2 TOTAL SCORE 0 04/28/2022 [facility] [place] of Occupat ional Health - Occupational Stress [...] place to sleep or slept in a jail (including now)? No 03/18/2023 Comments No Sex and Gender Information Value Date Recorded Sex Assigned at Not on file Legal Sex Female 6:29 AM SERVICE OBSERVER CHIEF Gender Identity Not on file Sexual Orientation Not on file documented as of this encounter Functional Status * Is person deaf or have serious hearing difficulty? Answer Date of Assessment Author No 03/18/2023 3:42 PM Cynthia Macias RN * Is person blind or have serious difficulty seeing? Answer Date of Assessment Author No 03/18/2023 3:42 PM Cynthia Macias RN * Does person have serious difficulty walking/climbing stairs? Answer Date of Assessment Author No 03/18/2023 3:42 PM Cynthia Macias RN * Does person have difficulty dressing/bathing? Answer Date of Assessment Author No 03/18/2023 3:42 PM CDT Cynthia Graves RN * Does person have difficulty doing errands alone? Answer Date of Assessment Author No 03/18/2023 3:42 PM CDT Cynthia Graves RN documented as of this encounter Mental Status * Does person have difficulty concentrating/remembering/making decisions? Answer Entry Date Author No 03/18/2023 3:42 PM CDT Cynhtia Graves RN documented in this encounter Miscellaneous Notes * Telephone Encounter - Cierra Mckeon - 01/06/2024 3:11 PM CST Pt returned called regarding holter results ICE OBSERVER CHIEF documented in this encounter Plan of Treatment Not on file documented as of this encounter Visit Diagnoses Not on filedocumented in this encounter Care Teams Public Opinion Survey Taker Relationship Specialty Start Date End Date Robbi Cervantes MD [facility] [address] [place] [address] PCP - General Internal Medicine 10/03/14 Hieu Levin MD [address] [place] [address] [address] [place] [address] Cardiovascular Disease 05/12/21 documented as of this encounter
--- OUTSIDE RECORDS SUMMARY | 2025-05-10 14:46 | XMS_ITS | Encounter Summary ---
Author Organization [facility] Address [address] [place] [address] Care Team Providers Care R Programmer Name Role Phone Scotty Diaz MD Primary Care Provider [phone] Reason for Visit * Reason Onset Date Comments Xray/ultrasound Order 05/10/2025 Encounter Details Date Type Department Care Team (Late st Contact Info) Description 05/10/2025 Telephone [facility] Group Family & Internal Medicine [facility] [address] [place] [address] Scotty Diaz MD [facility] [place] [address] Xray/ultrasound Order Social History Tobacco Use Types Packs/Day Years Used Date Smoking Tobacco: Never Smokeless Tobacco: Never Alcohol Use Standard Drinks/Week Comments Never 0 (1 standard drink = 0.6 oz pur e alcohol) [facility] Utilities Answer Date Recorded In the past 12 months has [employer] gas, oil, or water [employer] threatened to shut off services in your [...] any time in the past 12 m [facility], were you homeless or living in a long term (including now)? No 01/04/2025 Comments No Sex and Gender Information Value Date Recorded Sex Assigned at Female 12/12/2024 12:17 PM CLERK TELEVISION PRODUCTION Legal Sex Female 9:27 AM CDT Gender Identity Female 12/12/2024 12:17 PM CLERK TELEVISION PRODUCTION Sexual Orientation Not on file documented as of this encounter Functional Status * Are you deaf or do you have serious difficulty hearing Answer Date of Assessment Author Status No 01/04/2025 4:00 AM Brianna Desir RN Active * Are you blind or do you have serious difficulty seeing, even when wearing glasses? Answer Date of Assessment Author Status No 01/04/2025 4:00 AM Brianna Desir RN Active * Do you have serious difficulty walking or climbing stairs? Answer Date of Assessment Author Status Yes 01/04/2025 4:00 AM Brianna Desir RN Active * Do you have difficulty dressing or bathing? Answer Date of Assessment Author Status Yes 01/04/2025 4:00 AM Brianna Desir RN Active * Because of a physical, mental, or emotional condition, do you have difficulty doing errands alone such as visiting a doctor's office or shopping? Answer Date of Assessment Author Status No 01/04/2025 4:00 AM Brianna Desir RN Active documented as of this encounter Mental Status * Because of a physical, mental, or emotional condition, do you have serious difficulty concentrating, remembering, or making decisions? Answer Entry Date Author Status No 01/04/2025 4:00 AM Brianna Desir RN Active documented in this encounter Progress Notes * Sarah Trejo RN - 05/10/2025 1:16 PM CDT Called and advised that they send patient to ED. Related to not being able to get the x-ray in a timely manner and PCP if off on Fridays. Nurse is agreeable and will send her to ED. Opportunity givenfor all questions to be answered, no further needs voiced at this time. LL-05/10/25 * Krys Cintron - 05/10/2025 12:22 PM CDT Patient fell on the 6th and is having upper left arm and clavicle are hurting her and [place] isrequesting that we send over a portable Xray order for both areas. Please call [phone] [facility] and anyone can help us. documented in this encounter Plan of Treatment Upcoming Encounters Date Type Department Care Team (Late st Contact Info) Description 06/18/2025 1:40 PM CDT Office Visit [facility] Medical Group Family & Internal Medicine [facility] [address] [place] [address] Scotty Diaz MD [address] [place] [address] documented as of this encounter Visit Diagnoses Not on filedocumented in this encounter Additional Health Concerns Infection Onset Date Last Indicated Resolved Time ESBL - Extended Spectrum Beta-lactamase 04/15/2025 0 04/15/2025 Assessment Noted Time PHQ-9 Depression Total Score: 13 025 12:14 PM CLERK TELEVISION PRODUCTION documented as of this encounter Care Teams R Programmer Relationship Specialty Start Date End Date Scotty Diaz MD [address] [place] [address] PCP - General INTERNAL MEDICINE 12/12/24 documented as of this encounter
--- OUTSIDE RECORDS SUMMARY | 2025-05-10 14:46 | XMS_ITS | Encounter Summary ---
Author Organization [facility] Address [address] [place] [address] Care Team Providers Care Crane Manager Name Role Phone Scotty Diaz MD Primary Care Provider [phone] Reason for Visit * Reason Onset Date Comments Anticoagulation 05/09/2025 Encounter Details Date Type Department Care Team (Late st Contact Info) Description 05/09/2025 Telephone [facility] Family & Internal Medicine [facility] [address] [place] [address] Scotty Diaz MD [facility] [place] [address] Anticoagulation Social History Tobacco Use Types Packs/Day Years Used Date Smoking Tobacco: Never Smokeless Tobacco: Never Alcohol Use Standard Drinks/Week Comments Never 0 (1 standard drink = 0.6 oz pur e alcohol) [facility] Utilities Answer Date Recorded In the past 12 months has [facility] [employer] gas, oil, or water [employer] threatened to shut off services in your [...] any time in the past 12 m [facility], were you homeless or living in a [facility] (including now)? No 01/04/2025 Comments No Sex and Gender Information Value Date Recorded Sex Assigned at Female 12/12/2024 12:17 PM KISS SETTER HAND Legal Sex Female 9:27 AM CDT Gender Identity Female 12/12/2024 12:17 PM KISS SETTER HAND Sexual Orientation Not on file documented as [...] documented in this encounter Progress Notes * Caprice Obregon MA - 05/09/2025 11:05 AM CDT INR 1.99 on 05/07/25. Pt currently on Warfarin 5mg daily. Per Dr. Diaz, continue same dose and recheck INR in 1 week. Information faxed to [facility]. documented in this encounter Plan of Treatment Upcoming Encounters Date Type Department Care Team (Late st Contact Info) Description 06/18/2025 1:40 PM CDT Office Visit [facility] Medical Group Family & Internal Medicine [address] [address] Scotty Diaz MD [address] [place] [address] documented as of this encounter Procedures Procedure Name Priority Date/Time Associated Diagnosis Comments PT/INR (OUTSIDE LAB) Routine 05/07/2025 documented in this encounter Results * PT/INR (OUTSIDE LAB) (05/07/2025) INR WHOLE BLOOD 1.99 05/07/2025 us Default History Genericprovider LAB-OUTSIDE/ABST RACTED Final Result documented in this encounter Visit Diagnoses Not on filedocumented in this encounter Additional Health Concerns Infection Onset Date Last Indicated Resolved Time ESBL - Extended Spectrum Beta-lactamase 04/15/2025 0 04/15/2025 Assessment Noted Time PHQ-9 Depression Total Score: 13 025 12:14 PM KISS SETTER HAND documented as of this encounter Care Teams Crane Manager Relationship Specialty Start Date End Date Scotty Diaz MD [address] [place] [address] PCP - General INTERNAL MEDICINE 12/12/24 documented as of this encounter
--- OUTSIDE RECORDS SUMMARY | 2025-05-10 14:46 | XMS_ITS | Encounter Summary ---
Author Organization [facility] Address [address] [place] [address] Care Team Providers Care High School Art Teacher Name Role Phone Scotty Diaz MD Primary Care Provider [phone] Encounter Details Date Type Department Care Team (Late st Contact Info) Description 04/15/2025 Results Follow-Up [facility] Medical Group Family & Internal Medicine [facility] [address] [place] [address] Scotty Diaz MD [address] [place], [place] [id number] URINALYSIS AUTO DIP, URINE BACTERIA CULTURE Social History Tobacco Use Types Packs/Day Years Used Date Smoking Tobacco: Never Smokeless Tobacco: Never Alcohol Use Standard Drinks/Week Comments Never 0 (1 standard drink = 0.6 oz pur e alcohol) [facility] Utilities Answer Date Recorded In the past 12 months has [facility] [place], gas, oil, or water [employer] threatened to shut off services in your [...] any time in the past 12 m [facility], were you homeless or living in a alf (including now)? No 01/04/2025 Comments No Sex and Gender Information Value Date Recorded Sex Assigned at Female 12/12/2024 12:17 PM RESCUE WORKER Legal Sex Female 9:27 AM CDT Gender Identity Female 12/12/2024 12:17 PM RESCUE WORKER Sexual Orientation Not on file documented as [...] documented in this encounter Progress Notes * Claire Kitchen MA - 04/25/2025 3:07 PM CDT Images from the original note were not included. Vickie at [place] informed of INR needing rechecked in one week as well as acute bactrim RX then daily preventative. She verbalized understanding. Scotty Diaz MD to Me (Selected Message) 04/25/25 2:33 PM Okay for Rx. Recheck INR in 1 week. * Scotty Diaz MD - 04/22/2025 9:15 PM CDT Urine culture did grow e.coli. recommend starting on Bactrim 1 tablet bid x 7 days, then go to one tablet daily for prevention of UTI, taken rat exterminator. * Scotty Diaz MD - 04/15/2025 3:22 PM CDT Labs reviewed with patient at the time of office visit. documented in this encounter Plan of Treatment Upcoming Encounters Date Type Department Care Team (Late st Contact Info) Description 06/18/2025 1:40 PM CDT Office Visit [facility] Medical Group Family & Internal Medicine [facility] [address] [place] [address] Scotty Diaz MD [address] [place] [address] documented as of this encounter Visit Diagnoses Diagnosis UTI (urinary tract infection)- Primary Urinary tract infection, site not specified Recurrent UTI Urinary tract infection, site not specified documented in this encounter Additional Health Concerns Infection Onset Date Last Indicated Resolved Time ESBL - Extended Spectrum Beta-lactamase 04/15/2025 0 04/15/2025 Assessment Noted Time PHQ-9 Depression Total Score: 13 025 12:14 PM RESCUE WORKER documented as of this encounter Care Teams High School Art Teacher Relationship Specialty Start Date End Date Scotty Diaz MD [address] [place] [address] PCP - General INTERNAL MEDICINE 12/12/24 documented as of this encounter
[2025-05-10] MEDS: oxyCODONE HCL (*CRX) 5 MG TAB IR PO (15:07)
--- NOTE | 2025-05-10 15:11 | ED_ITS ---
HPI - General Adult General Chief complaint: Fall Stated complaint: fall from bed May 05 Time Seen by Provider: 05/10/25 14:36 History of Present Illness HPI narrative: This is an 84-year-old female history of dementia A&O x1 to her baseline presenting for left-sided pain. Patient says she fell out of bed several days ago landing on her left side. She has pain from her left arm up through her shoulder. She also has some pain on her left rib cage. Patient is denying fevers chills chest pain difficulty breathing abdominal pain or urinary symptoms. Related Data Home Medications ?Medication ?Instructions ?Recorded ?Confirmed ?Last Taken ?Type duloxetine 60 mg capsule,delayed 60 mg PO DAILY 03/20/24 08/02/24 Unknown History release leflunomide 20 mg tablet 20 mg PO DAILY 03/20/24 08/02/24 Unknown History metformin 500 mg tablet 500 mg PO BIDWM 03/20/24 08/02/24 Unknown History metoprolol succinate 25 mg 25 mg PO HS 03/20/24 08/02/24 Unknown History tablet,extended release 24 hr pravastatin 40 mg tablet 40 mg PO DAILY 03/20/24 08/02/24 Unknown History trazodone 100 mg tablet 200 mg PO HS 03/20/24 08/02/24 Unknown History clonazepam 0.5 mg tablet See Rx Instructions .Route .COMPLEX 08/02/24 08/02/24 Unknown History fexofenadine 180 mg tablet 180 mg PO DAILY 08/02/24 08/02/24 Unknown History losartan 100 mg tablet 100 mg PO DAILY 08/02/24 08/02/24 Unknown History Allergies Allergy/AdvReac Type Severity Reaction Status Date / Time No Known Allergies Allergy Mild Verified 11/23/22 15:11 [facility] Past Medical History Medical History Elevated liver enzymes Upper abdominal pain Diabetes Ventricular bigeminy Insomnia Degenerative lumbar disc Family History Family History Sibling Dementia Father Acute myocardial infarction Mother Diabetes mellitus Social History Social History Smoking status: Never smoker Alcohol intake: never Substance use: never Do You Feel Safe in your Home?: Yes Lack of Transportation: No Lack of Food: Never True Current Housing: I Have Housing Concerned About Future Housing: No Difficulty Paying Gas/Electric Bills: No Difficulty Paying for Meds: No Currently Unemployed: No Education: Decline to Answer Difficulty w/ Childcare or Family Care: No Spiritual care concerns: No Exam 2 Narrative: APPEARANCE: No apparent distress. Head: atraumatic. EYES: EOMI, NOSE: Atraumatic NECK: Trachea midline no midline cervical tenderness RESPIRATORY: No increased rate of breathing clear to auscultation, on 3 L home oxygen CARDIOVASCULAR: RRR, no tachycardia ABDOMINAL: Non-distended soft nontender MUSCULOSKELETAl: Head to toe trauma exam revealed bruising over the left trap and left upper extremity. There is mild swelling but no obvious deformities in the arm. Range of motion is intact in the shoulder elbow and wrist. Pulses are +2 radial ulnar distribution. Patient has some minor tenderness over the left trapezius. She does not have pain with lateral or AP loading of the chest. No injuries lower extremities NEURO: Alert. Cranial nerves 2-12 grossly intact. Sensation light touch, motor function cerebellar function intact for 4 extremities. \ SKIN:: Warm, dry. Normal color PSYCHIATRIC: Normal affect Course Vital Signs Vital signs: Vital Signs Temperature 97.6 F 05/10/25 14:19 Pulse Rate 92 05/10/25 14:19 Respiratory Rate 16 05/10/25 14:19 Blood Pressure 115/78 05/10/25 14:19 Pulse Oximetry 99 05/10/25 14:19 Temperature 97.6 F 05/10/25 14:19 Pulse Rate 92 05/10/25 14:19 Respiratory Rate 16 05/10/25 14:19 Blood Pressure 115/78 05/10/25 14:19 Pulse Oximetry 99 05/10/25 14:19 Medical Decision Making [facility] Narrative Medical decision making narrative: -Course: 84-year-old female presents several days after falling out of bed. Patient is complaining of pain to essentially her entire left side. She does have some bruising over left trap on exam. X-rays of the left arm and CT chest abdomen pelvis did not reveal any acute findings. CT head negative for bleed. Patient was treated with oxycodone. She will be discharged back to the longterm with Tylenol and Robaxin. She can return if she develops any new or worsening symptoms. -DDX includes but is not limited to: Bony injury, soft tissue injury Vital Signs Vital Signs: Vital Signs Temperature 97.6 F 05/10/25 14:19 Pulse Rate 92 05/10/25 14:19 Respiratory Rate 16 05/10/25 14:19 Blood Pressure 115/78 05/10/25 14:19 Pulse Oximetry 99 05/10/25 14:19 Temperature 97.6 F 05/10/25 14:19 Pulse Rate 92 05/10/25 14:19 Respiratory Rate 16 05/10/25 14:19 Blood Pressure 115/78 05/10/25 14:19 Pulse Oximetry 99 05/10/25 14:19 Lab Data 05/10/25 15:19 Labs: Lab Results 05/10/25 Range/Units 15:19 Creatinine 1.70 H (0.7-1.2) mg/dL Estim Creat Clear Calc 22 ml/min Estimated GFR 29 L (59 - ) Discharge Plan Discharge Clinical Impression: Fall, Bruising Patient Disposition: Home Condition: Stable Instructions: Antibiotic Form, Contusion in Adults (ED) Additional Instructions: Sayra was seen in the ED after a fall. The CT of brain, CT chest abdomen pelvis, shoulder x-ray elbow x-ray and wrist x-ray were negative for any acute injuries. She can continue to take Tylenol and Robaxin as needed for pain. If she develops any new or worsening symptoms she should return to the ED for re- evaluation. Patient Language: Chinese Prescriptions: New acetaminophen 500 mg tablet 1,000 mg PO TID PRN (Reason: rinku) 7 Days Qty: 42 0RF methocarbamol 750 mg tablet 750 mg PO TID Qty: 30 0RF No Action clonazepam 0.5 mg tablet See Rx Instructions .ROUTE .COMPLEX Rx Instructions: 0.5mg tablet, take 2-3 tablets at hs for anxiety/sleep fexofenadine 180 mg Tablet 180 mg PO DAILY losartan 100 mg tablet 100 mg PO DAILY amlodipine [Norvasc] 5 mg Tablet 5 mg PO DAILY Qty: 60 0RF amoxicillin-pot clavulanate 875-125 mg tablet 1 tablet PO Q12H Qty: 6 0RF metformin 500 mg tablet 500 mg PO BIDWM pravastatin 40 mg tablet 40 mg PO DAILY leflunomide 20 mg tablet 20 mg PO DAILY trazodone 100 mg tablet 200 mg PO HS metoprolol succinate 25 mg tablet extended release 24 hr 25 mg PO HS duloxetine 60 mg capsule,delayed release(DR/EC) 60 mg PO DAILY Eliquis 2.5 mg Tablet 2.5 mg PO Q12HR Qty: 60 0RF nitrofurantoin monohyd/m-cryst [Macrobid] 100 mg capsule 100 mg PO Q12H 3 Days Qty: 6 0RF Rx Instructions: filled 07/24/24 Follow-up/Referrals: UNKNOWN,DOCTOR [Primary Care Provider] -
[2025-05-10 15:21] LABS: Estimated CRCL calculation 22 ml/min; Estimated Glomerular Filt Rate 29
[2025-05-10 17:44] VITALS: BP 136/84; PULSE 82; RESP 16; O2SAT 96
== END 2025-05-10 18:19 | disposition home or self-care (01) ==
PROVIDERS: Emergency Provider Emergency Medicine
DX: S40.012A Contusion of left shoulder, initial encounter (principal); E11.9 Type 2 diabetes mellitus without complications; Z99.81 Dependence on supplemental oxygen; Z79.01 Long term (current) use of anticoagulants; Z79.84 Long term (current) use of oral hypoglycemic drugs; Z79.899 Other long term (current) drug therapy; W06.XXXA Fall from bed, initial encounter
CPT/HCPCS: 70450; 71045; 71250; 72170; 73030; 73080; 73110; 74176; 99284; A9270

== ENCOUNTER 2025-05-20 08:27 | Emergency (ER) | payer OTHER, SELFPAY ==
--- NOTE | ~2025-05-20 | CT_ITS ---
EXAM: CT cervical spine wo con - 05/20/2025 10:35 CDT History: 84 years old Female with persistent neck pain after fall 05/10/25 COMPARISON: None available. PROCEDURE: CT of the cervical spine without contrast. Axial, sagittal and coronal reformatted plane s were evaluated. Automatic exposure control was used for this study. FINDINGS: No acute fracture or subluxation. Straightening of cervical lordosis, likely positional or may be rel ated to muscle spasm. Multilevel degenerative changes of the cervical spine include varying degrees o f disk space narrowing, endplate osteophytosis as well as facet and uncal arthropathy. Prevertebral s oft tissues are within normal limits. Biapical pleuroparenchymal scarring. IMPRESSION: No evidence for cervical spine fracture or traumatic subluxation. Multilevel degenerative changes of the cervical spine. Reviewed, dictated and finalized at location A.
--- NOTE | ~2025-05-20 | CT_ITS ---
EXAM: CT thoracic lumbar wo con, CT hip RT wo con, CT shoulder LT wo con - 05/20/2025 10:42 CDT History: 84 years old Female with pain after fall 05/10 Comparison None Technique Thin helical images obtained without intravenous contrast according to standard protocol. Coronal an d sagittal reformatted images are provided. Findings Evaluation is limited secondary to artifact caused by the patient's motion. Spine: No fracture or gross subluxation is appreciated. Mild levoscoliosis of the lumbar spine. Multilevel d egenerative changes are seen. No intraspinal or paraspinal mass or hematoma appreciated. Bibasilar atelectasis. Mosaic attenuation of the lungs, likely obstructive small airway disease. Atherosclerotic calcifications are seen in the coronary arteries. 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 No gross mass or adenopathy identified, considering lack of IV contrast for this exam. Right hip: There are no fractures or dislocations. Joint spaces are within normal limits. Visualized soft tissue are within normal limits. Scattered colonic diverticula are seen. Left shoulder: There are no fractures or dislocations. Joint space narrowing, subchondral sclerosis, subchondral cys t formation and osteophyte formation, compatible with moderate osteoarthritis. Visualized soft tissue are within normal limits. Impression: 1. No acute abnormality of the right hip, left foot, thoracic or lumbar spine detected by CT. Reviewed, dictated and finalized at location A. Impression: 1. No acute abnormality of the right hip, left foot, thoracic or lumbar spine detected by CT. Impression: 1. No acute abnormality of the right hip, left foot, thoracic or lumbar spine detected by CT. Impression: 1. No acute abnormality of the right hip, left foot, thoracic or lumbar spine detected by CT.
[2025-05-20 08:19] VITALS: PULSE 98; RESP 14; TEMP 36.4; O2SAT 94
--- OUTSIDE RECORDS SUMMARY | 2025-05-20 09:28 | XMS_ITS | Encounter Summary ---
Author Organization [facility] Address [address] [place] [address] Care Team Providers Care Police Detention Attendant Name Role Phone Scotty Diaz MD Primary Care Provider [phone] Encounter Details Date Type Department Care Team (Late st Contact Info) Description 04/15/2025 Results Follow-Up [facility] Family & Internal Medicine [facility] [address] [place] [address] Scotty Diaz MD [address] [place], [place] [id number] URINALYSIS AUTO DIP, URINE BACTERIA CULTURE Social History Tobacco Use Types Packs/Day Years Used Date Smoking Tobacco: Never Smokeless Tobacco: Never Alcohol Use Standard Drinks/Week Comments Never 0 (1 standard drink = 0.6 oz pur e alcohol) [facility] Utilities Answer Date Recorded In the past 12 months has [facility] [place], gas, oil, or water [employer] threatened to shut off services in your [...] any time in the past 12 m [facility], were you homeless or living in a jail (including now)? No 01/04/2025 Comments No Sex and Gender Information Value Date Recorded Sex Assigned at Female 12/12/2024 12:17 PM DIRECTOR WEB Legal Sex Female 9:27 AM CDT Gender Identity Female 12/12/2024 12:17 PM DIRECTOR WEB Sexual Orientation Not on file documented as [...] original note were not included. Vickie at [place] informed of INR needing rechecked in one [...] tablet daily for prevention of UTI, taken extermination inspector. * Scotty Diaz MD - 04/15/2025 3:22 PM CDT Labs reviewed with patient at the time of office visit. documented in this encounter Plan of Treatment Upcoming Encounters Date Type Department Care Team (Late st Contact Info) Description 06/18/2025 1:40 PM CDT Office Visit [facility] Medical Group Family & Internal Medicine [facility] [address] [place] [address] Scotty Diaz MD [address] [place] [address] documented as of this encounter Visit Diagnoses Diagnosis UTI (urinary tract infection)- Primary Urinary tract infection, site not specified Recurrent UTI Urinary tract infection, site not specified documented in this encounter Additional Health Concerns Infection Onset Date Last Indicated Resolved Time ESBL - Extended Spectrum Beta-lactamase 04/15/2025 0 04/15/2025 Assessment Noted Time PHQ-9 Depression Total Score: 13 025 12:14 PM DIRECTOR WEB documented as of this encounter Care Teams Police Detention Attendant Relationship Specialty Start Date End Date Scotty Diaz MD [address] [place] [address] PCP - General INTERNAL MEDICINE 12/12/24 documented as of this encounter
--- OUTSIDE RECORDS SUMMARY | 2025-05-20 09:28 | XMS_ITS | Encounter Summary ---
Author Organization [facility] Address [address] [place] [address] [place] [address] Care Team Providers Care Circus Roustabout Name Role Phone Robbi Cervantes MD Primary Care Provider [phone] Hieu Levin MD Unavailable [phone] Reason for Visit * Reason Onset Date Comments Results 01/06/2024 Encounter Details Date Type Department Care Team (Late st Contact Info) Description 01/06/2024 Telephone [facility] Heart & Vascular Care [facility] [address] [place] [address] Hieu Levin MD [address] [place] [address] [facility] [address] [place] [address] Results Social History Tobacco Use [...] Date Recorded PHQ2 TOTAL SCORE 0 04/28/2022 [facility] of Occupat ional Health - Occupational Stress [...] place to sleep or slept in a custodial (including now)? No 03/18/2023 Comments No Sex and Gender Information Value Date Recorded Sex Assigned at Not on file Legal Sex Female 6:29 AM RESEARCH ENVIRONMENTAL SCIENTIST Gender Identity Not on file Sexual Orientation [...] Date Author No 03/18/2023 3:42 PM CDT Cynthia Graves RN documented in this encounter Miscellaneous Notes * Telephone Encounter - Cierra Mckeon - 01/06/2024 3:11 PM CST Pt returned called regarding holter results ARCH ENVIRONMENTAL SCIENTIST documented in this encounter Plan of Treatment Not on file documented as of this encounter Visit Diagnoses Not on filedocumented in this encounter Care Teams Circus Roustabout Relationship Specialty Start Date End Date Robbi Cervantes MD [facility] [facility] [address] [place] [address] PCP - General Internal Medicine 10/03/14 Hieu Levin MD [address] [place] [address] [address] [place] [address] Cardiovascular Disease 05/12/21 documented as of this encounter
--- OUTSIDE RECORDS SUMMARY | 2025-05-20 09:28 | XMS_ITS | Encounter Summary ---
Author Organization [facility] Address [address] [place] [address] Care Team Providers Care Health Lead Name Role Phone Scotty Diaz MD Primary Care Provider [phone] Encounter Details Date Type Department Care Team (Latest Contact Info) Description 05/10/2025 Scan [facility] INFO SRVCS Scanned, Doc Med Group Social History Tobacco Use Types Packs/Day Years Used Date Smoking Tobacco: Never Smokeless Tobacco: Never Alcohol Use Standard Drinks/Week Comments Never 0 (1 standard drink = 0.6 oz pur e alcohol) [facility] Utilities Answer Date Recorded In the past 12 months has e electric, gas, oil, or water company threatened to shut off services in your [...] any time in the past [address] [facility], were you homeless or living in a long-term (including now)? No 01/04/2025 Comments No Sex and Gender Information Value Date Recorded Sex Assigned at Female 12/12/2024 12:17 PM MEDIA PRODUCTION OPERATOR Legal Sex Female 9:27 AM CDT Gender Identity Female 12/12/2024 12:17 PM MEDIA PRODUCTION OPERATOR Sexual Orientation Not on file documented as of this encounter Functional Status * Are you deaf or do you have serious difficulty hearing Answer Date of Assessment Author Status No 01/04/2025 4:00 AM Brianna Desir RN Active * Are you blind or do you have serious difficulty seeing, even when wearing glasses? Answer Date of Assessment Author Status No 01/04/2025 4:00 AM Biranna Desir RN Active * Do you have [...] Desir RN Active documented in this encounter Plan of Treatment Upcoming Encounters Date Type Department Care Team (Late st Contact Info) Description 06/18/2025 1:40 PM CDT Office Visit [facility] Medical Group Family & Internal Medicine [address] [address] Scotty Diaz MD [address] [place] [address] documented as of this encounter Visit Diagnoses Not on filedocumented in this encounter Additional Health Concerns Infection Onset Date Last Indicated Resolved Time ESBL - Extended Spectrum Beta-lactamase 04/15/2025 0 04/15/2025 Assessment Noted Time PHQ-9 Depression Total Score: 13 025 12:14 PM MEDIA PRODUCTION OPERATOR documented as of this encounter Care Teams Health Lead Relationship Specialty Start Date End Date Scotty Diaz MD [address] [place] [address] PCP - General INTERNAL MEDICINE 12/12/24 documented as of this encounter
--- OUTSIDE RECORDS SUMMARY | 2025-05-20 09:28 | XMS_ITS | Clinical Summary ---
Author Organization [facility] Address [address] [place] [address] Phone Care Team Providers Care Maintenance Mechanic Supervisor Name Role Phone Robbi Cervantes MD Primary Care Provider [phone] Allergies Active Allergy Reactions Criticality Noted Date [...] on file Legal Sex Female 9:25 AM [facility] Gender Identity Not on file Sexual Orientation Not on file Last Filed Vital Signs Vital Sign Reading Time Taken Comments Blood Pressure 126/64 11/05/2019 2:24 PM AIRLINE PILOT Pulse 60 11/05/2019 2:24 PM AIRLINE PILOT Temperature 35.9 C (96.6 F) 04/30/2019 3:08 PM CDT Respiratory Rate - - Oxygen Saturation - - Inhaled Oxygen Concentration - - Weight 94.3 kg (208 lb) 11/05/2019 2:24 PM AIRLINE PILOT Height 162.6 cm (5' 4) 11/05/2019 2:24 PM AIRLINE PILOT Body Mass Index 35.7 11/05/2019 2:24 PM AIRLINE PILOT Plan of Treatment Health Maintenance Due Date Last Done Comments Pneumococcal PPSV23/PCV13 65 + Years / Low and Medium Risk (1 of 2 - PCV) 1992 Influenza Vaccine (#1) 2025 11/19/2018 Insurance [employer] H[employer] Care Teams Maintenance Mechanic Supervisor Relationship Specialty Start Date End Date Robbi Cervantes MD [address] [address] PCP - General Internal Medicine 04/30/19
--- OUTSIDE RECORDS SUMMARY | 2025-05-20 09:28 | XMS_ITS ---
Author Name Auto Generated, Auto Generated Organization [facility] Address [address] [place] [address] Phone [phone] Care Team Providers Care Brand Marketing Manager Name Role Phone Yuko Hammond Unavailable [phone] Loc Lopez Unavailable [phone] Functional Status No Results Mental Status No [...] 2022 * End Date: * Text: * FPC (current) use of anticoagulants* Code: * Start [...] 2022 * End Date: * Text: * terminal worker (current) use of antimetabolite agent* Code: * Start Date: TueAug 29 00:00:00 EDT 2022 * End Date: * Text: * [facility]PC (current) use of opiate analgesic* Code: * [...] 2022 * End Date: * Text: * [facility]PC (current) use of aspirin* Code: * Start Date: TueAug 29 00:00:00 EDT 2022 * End Date: * Text: * [facility]PC (current) use of oral hypoglycemic drugs* Code: [...]
--- OUTSIDE RECORDS SUMMARY | 2025-05-20 09:28 | XMS_ITS | Encounter Summary ---
Author Organization [facility] Address [address] [facility] [place] [address] Care Team Providers Care Manager Program Name Role Phone Robbi Cervantes MD Primary Care Provider [phone] Hieu Levin MD Unavailable [phone] Reason for Visit * Reason Comments Refill Request Encounter Details Date Type Department Care Team (Late st Contact Info) Description 02/19/2019 Refill [facility] [address] [place] [address] [place] [address] [address] Refill Request Social History Tobacco Use Types Packs/Day Years Used Date Smoking Tobacco: Never Smokeless Tobacco: Never Alcohol Use Standard Drinks/Week Comments No 0 (1 standard drink = 0.6 oz pur e alcohol) Comments Unknown Sex and Gender Information Value Date Recorded Sex Assigned at Not on file Legal Sex Female 6:29 AM CLINICAL UNIT EDUCATOR Gender Identity Not on file Sexual Orientation [...] documented as of this encounter Care Teams Manager Program Relationship Specialty Start Date End Date Robbi Cervantes MD [address] [place] [address] [address] [place] [address] PCP - General Internal Medicine 10/03/14 Hieu Levin MD [address] [place] [address] [facility] [address] [place] [address] Cardiovascular Disease 05/12/21 documented as of this encounter
--- OUTSIDE RECORDS SUMMARY | 2025-05-20 09:28 | XMS_ITS | Clinical Summary ---
Author Organization [facility] [address] [place] [address] Address [address] [place] [address] Care Team Providers Care Process Chemist Name Role Phone Robbi Cervantes MD Primary [...] 2017 INFLUENZA VACCINE (#1) 2025 Care Teams Process Chemist Relationship Specialty Start Date End Date Robbi Cervantes MD [address] [facility] [address] [place] [address] PCP - General Internal Medicine 04/05/22
--- OUTSIDE RECORDS SUMMARY | 2025-05-20 09:28 | XMS_ITS | Clinical Summary ---
Author Organization [facility] Address [address] [facility] [place] [address] Care Team Providers Care Photo Manager Name Role Phone Robbi Cervantes MD Primary Care Provider [phone] Hieu Levin MD Unavailable [phone] Source Comments [facility],non-owned Affiliates and Associated Physician Practices is amultiple site organization consisting of ambulatory clinics and hospital sitesin [place], [place], [place] and [place]. This disclosure is being madepursuant to the Care Everywhere program and may not contain all information available regarding this patient. Last updated 18.[facility] Allergies No known active allergies Medications * [...] Date Recorded PHQ2 TOTAL SCORE 0 04/28/2022 [facility] of Occupat ional Health - Occupational Stress [...] place to sleep or slept in a long-term (including now)? No 03/18/2023 Comments No Sex and Gender Information Value Date Recorded Sex Assigned at Not on file Legal Sex Female 6:29 AM SECOND WORKER Gender Identity Not on file Sexual Orientation [...] this topic Medical Devices Implanted Type Area Diesel Technician Device Identifier Shelf Expiration Date Model / Serial / Lot 2.5 X 20mm Headless Screw Implanted:Qty: 1 on 09/03/2020 by Serge Oswald MD at [facility] Left: Foot [employer] SV20 / / Screw 2mm .87mm 12mm Slf-Tap Slf Rm Implanted:Qty: 2 on 09/03/2020 by Serge Oswald MD at [facility] Left: Foot [employer] WS12 / / Explanted Type Area Diesel Technician Device Identifier Shelf Expiration Date Model / Serial / Lot Plates And Screws Explanted:Qty: 1 on 09/03/2020 by Serge Oswald MD at [facility] Left: Foot UNKNOWN / / Procedures Procedure [...] - 105 mg/dL 01/13/2024 4:03 PM CDT [facility] Sodium 142 136 - 145 mmol/L 01/13/2024 4:03 PM CDT [facility] Potassium 4.4 3.5 - 5.1 mmol/L 01/13/2024 4:03 PM CDT [facility] Chloride 107 98 - 107 mmol/L 01/13/2024 4:03 PM CDT [facility] CO2 25 22 - 29 mmol/L 01/13/2024 4:03 PM [facility] Calcium 9.4 8.4 - 10.4 mg/dL 01/13/2024 4:03 PM [facility] Anion Gap 10 6 - 16 mmol/L 01/13/2024 4:03 PM T [facility] BUN 35(H) 7 - 26 mg/dL 01/13/2024 4:03 PM T [facility] Creatinine 1.21(H) 0.57 - 1.11 mg/dL 01/13/2024 4:03 PM [facility] Alkaline Phosphatase 60 40 - 150 U/L 01/13/2024 4:03 PM T [facility] ALT 13 0 - 55 U/L 01/13/2024 4:03 PM T [facility] AST 19 5 - 34 U/L 01/13/2024 4:03 PM [facility] Protein Total 6.7 6.4 - 8.3 gm/dL 01/13/2024 4:03 PM [facility] Albumin 3.4 3.4 - 5.0 gm/dL 01/13/2024 4:03 PM [facility] Bilirubin Total 0.6 0.2 - 1.2 mg/dL 01/13/2024 4:03 PM [facility] eGFR by CKD-EPI 45(L) >=90 mL/min/1.7 3 m2 01/13/2024 4:03 PM [facility] Blood BLOOD SPECIMEN / Unknown Venipuncture / Unknown 01/13/2024 3:37 PM CDT 01/13/2024 3:42 PM CDT Sharyn Giordano DO LAB - CHEMISTRY ORDERABLES Fi nal Result Performing Organization Address [facility]/ZIP Co de Phone Number [facility] [address] [place] [address] * (ABNORMAL) HEMOGLOBIN A1C (08/21/2023 3:36 AM CDT) Hemoglobin A1c 6.2(H) <5.7 % 08/21/2023 5:41 AM CDT [facility] Estimated Average Glucose 131 mg/dL 08/21/2023 5:41 AM CDT [facility] Blood BLOOD SPECIMEN / Unknown Lab Venipuncture / Unknown 08/21/2023 3:36 AM CDT 08/21/2023 3:56 AM CDT Narrative [facility] - 08/21/2023 5:41 AM CDT HbA1c [...] MD LAB - CHEMISTRY ORDERABLES Final Result [facility] [address] [place] [address] * DEXA BONE DENSITY 2 SITES (05/17/2016 [...] Most Recently Relevant to Health Maintenance Insurance [facility] MEDICARE [employer] AD[employer] PPO Advance Directives * Full Code (Latest Code Status on File) Date Activated Date Inactivated Comments 08/21/2023 2:13 AM 08/29/2023 3:24 PM * Full Code Date Activated Date Inactivated Comments 03/16/2023 10:18 PM 03/22/2023 7:20 PM * Full Code Date Activated Date Inactivated Comments 04/28/2022 1:43 AM 05/05/2022 6:59 PM Care Teams Photo Manager Relationship Specialty Start Date End Date Robbi Cervantes MD [address] [place] [address] PCP - General Internal Medicine 10/03/14 Hieu Levin MD [address] [facility] [address] [place] [address] Cardiovascular Disease 05/12/21
--- OUTSIDE RECORDS SUMMARY | 2025-05-20 09:28 | XMS_ITS | Encounter Summary ---
Author Organization [facility] Address [address] [place] [address] Care Team Providers Care Resident Surgeon Name Role Phone Scotty Diaz MD Primary Care Provider [phone] Encounter Details Date Type Department Care Team (Latest Contact Info) Description 05/05/2025 Scan [facility] SRVCS Scanned, Doc Med Group Social History Tobacco Use Types Packs/Day Years Used Date Smoking Tobacco: Never Smokeless Tobacco: Never Alcohol Use Standard Drinks/Week Comments Never 0 (1 standard drink = 0.6 oz pur e alcohol) [facility] Utilities Answer Date Recorded In the past [...] any time in the past 12 m [facility], were you homeless or living in a [facility] (including now)? No 01/04/2025 Comments No Sex and Gender Information Value Date Recorded Sex Assigned at Female 12/12/2024 12:17 PM INFORMATICS MANAGER Legal Sex Female 9:27 AM CDT Gender Identity Female 12/12/2024 12:17 PM INFORMATICS MANAGER Sexual Orientation Not on file documented as [...] Description 06/18/2025 1:40 PM CDT Office Visit [facility] Family & Internal Medicine [address] [address] Scotty Diaz MD [address] [place] [address] documented as of this encounter Visit Diagnoses Not on filedocumented in this encounter Additional Health Concerns Infection Onset Date Last Indicated Resolved Time ESBL - Extended Spectrum Beta-lactamase 04/15/2025 0 04/15/2025 Assessment Noted Time PHQ-9 Depression Total Score: 13 025 12:14 PM INFORMATICS MANAGER documented as of this encounter Care Teams Resident Surgeon Relationship Specialty Start Date End Date Scotty iDaz MD [address] [place] [address] PCP - General INTERNAL MEDICINE 12/12/24 documented as of this encounter
--- OUTSIDE RECORDS SUMMARY | 2025-05-20 09:28 | XMS_ITS | Clinical Summary ---
Author Organization [facility] Address [address] [place] [address] Care Team Providers Care Incubator Operator Name Role Phone Scotty Diaz MD Primary Care Provider [phone] Allergies Active Allergy Reactions Criticality Noted Date [...] by mouth nightly as needed. FOR SLEEP 025 Active metFORMIN (GLUCOPHAGE) 500 MG tablet Take 1 tablet (500 mg total) by mouth 2 (two) times daily with meals. 024 Active menthol-zinc oxide (CALMOSEPTINE) 0.44-20.6 % ointment Apply topically 3 (three) times daily. Active benzocaine-men thol (CHLORASEPTIC) 6-10 MG Lozenge Take 1 lozenge by mouth. Active loperamide (IMODIUM) 2 MG capsule Take 1 capsule (2 mg total) by mouth every 6 (six) hours as needed for Diarrhea. 025 Active ondansetron (ZOFRAN) 4 MG tablet Take 1 tablet (4 mg total) by mouth every 4 (four) hours as needed for Nausea. Active calcium carbonate (TUMS) 500 MG chewable tabletIndicati ons:Acid reflux Chew 2 tablets (1,000 mg total) by mouth every 4 (four) hours as needed for Heartburn. 360 tablet 3 025 Active Humidifier MiscIndication s:Chronic respiratory failure with hypoxia ([facility] HHS/HCC) 1 Device by Does not apply route daily. Oxygen humidifier 1 each 025 Active ADEMPAS 2 MG tablet Take 1 tablet (2 mg total) by mouth 3 (three) times daily. 025 Active DULoxetine (CYMBALTA) 60 MG capsuleIndicat ions:Anxiety Take 1 capsule (60 mg total) by mouth daily. 30 capsule 5 025 Active warfarin (COUMADIN) 5 MG tabletIndicati ons:Pulmonary emboli ([facility] HHS/HCC) Take 1 tablet (5 mg total) by mouth daily. 30 tablet 025 Active hydrOXYzine (ATARAX) 10 MG tabletIndicati ons:Anxiety TAKE ONE TABLET BY MOUTH THREE TIMES DAILY NEEDED FOR anxiety 60 tablet 2 025 Active acetaminophen CR (TYLENOL) 650 MG Tab CR 8 hr tabletIndicati ons:Neuropathy TAKE ONE TABLET BY MOUTH EVERY 6 HOURS NEEDED FOR MILD PAIN 28 tablet 025 Active lidocaine (LIDODERM) 5 %Indications:N europathy APPLY 1 PATCH TRANSDERMALLY DAILY AND REMOVE AFTER 12 HOURS 30 patch 025 Active sulfamethoxazo le-trimethopri m (BACTRIM) 400-80 MG tabletIndicati ons:Recurrent UTI TAKE ONE TABLET BY MOUTH DAILY 30 tablet 4 025 Active ondansetron (ZOFRAN) 4 MG tabletIndicati ons:Nausea & vomiting TAKE ONE TABLET BY MOUTH EVERY 6 HOURS NEEDED FOR NAUSEA 20 tablet 025 Active acetaminophen CR (TYLENOL) 650 MG Tab CR 8 hr tablet Take 1 tablet (650 mg total) by mouth every 6 (six) hours as needed. 2024 Discontinued lidocaine (LIDODERM) 5 % Place 1 patch onto the skin daily. 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 90 tablet 025 2024 Discontinued(D ose adjustment) ondansetron (ZOFRAN) 4 MG tabletIndicati ons:Nausea & vomiting Take 1 tablet (4 mg total) by mouth every 6 (six) hours as needed for Nausea. 20 tablet 025 2024 Discontinued warfarin (COUMADIN) 1 MG tabletIndicati ons:Pulmonary emboli (CMS/HCC HHS/HCC) Take 1 tablet (1 mg total) by mouth daily. 90 tablet 025 2024 Discontinued(D ose adjustment) hydrOXYzine (ATARAX) 10 MG tabletIndicati ons:Anxiety Take 1 tablet (10 mg total) by mouth 3 (three) times daily as needed for Anxiety. 30 tablet 025 2024 Discontinued sulfamethoxazo le-trimethopri m (BACTRIM) 400-80 MG tabletIndicati ons:UTI (urinary tract infection) Take 1 tablet by mouth 2 (two) times daily for 7 days. ACUTE RX 14 tablet 025 2024 sulfamethoxazo le-trimethopri m (BACTRIM) 400-80 MG tabletIndicati ons:Recurrent UTI Take 1 tablet by mouth daily. DAILY RX 30 tablet 025 2024 Discontinued hydrOXYzine (ATARAX) 10 MG tabletIndicati ons:Anxiety TAKE ONE TABLET BY MOUTH THREE TIMES DAILY NEEDED FOR anxiety 30 tablet 025 2024 Discontinued Active Problems Problem Noted Date Diagnosed Date Pulmonary emboli ([facility]) 03/26/2025 Severe malnutrition ([facility]) 01/16/2025 Overview (01/16/2025): Malnutrition Classification: Severe Malnutrition Severe malnutrition associated with acute disease or injury related to physiological causes increasing nutrient needs secondary to current illness as evidenced by unintended weight loss of 7.9% in 1 month and moderate fat loss noted in the following areas: orbital and buccal. Pulmonary hypertension ([facility]) TARIQ (acute kidney injury) 01/05/2025 Frequent falls 01/03/2025 History of pulmonary embolism 12/12/2024 Chronic respiratory failure ([facility]) Type 2 diabetes mellitus wit h circulatory disorder, without long-term current use of insulin ([facility]) 12/12/2024 Chronic heart failure with p reserved ejection fraction ([facility]) 12/12/2024 Mixed hyperlipidemia 12/12/2024 Anxiety 12/12/2024 Other insomnia 12/12/2024 Rheumatoid arthritis involvi ng multiple sites with positive rheumatoid factor ([facility]) 12/12/2024 Neuropathy 12/12/2024 Essential (primary) hypertension Encounters Date Type Department Care Team Description 05/17/2025 Telephone [facility] Family & Internal [address] [phone] Scotty Diaz MD Anticoagulation 05/15/2025 Telephone [facility] Internal [address] [phone] Scotty Diaz MD Prior Authorization (Lidocaine (Lidoderm) 5% patches ) 05/14/2025 Telephone [facility] Internal [address] [address] Scotty Diaz MD Medication 05/10/2025 Scan [facility] Scanned, [facility] 05/10/2025 Telephone [facility] Internal [address] [place] [address] Scotty Diaz MD Xray/ultrasound Order 05/09/[address] [address] Scotty Diaz MD Anticoagulation 05/05/2025 Scan [facility] Scanned, [facility] 05/02/2025 Scan [facility] Scanned, [facility] 05/02/[address] [address] Scotty Diaz MD Anticoagulation 04/30/2025 Scan [facility] Scanned, [facility] Lab (SCAN) 04/26/2025 Telephone [address] [place] [address] Scotty Diaz MD Results 04/26/[address] [address] Scotty Diaz MD Results 04/23/2025 Scan [facility] Scanned, [facility] Lab (SCAN) 04/19/2025 Scan [facility] Scanned, [facility] 04/19/2025 Telephone [address] [place] [address] Scotty Diaz MD Anticoagulation 04/18/2025 Telephone [facility] Internal [address] [place] [address] Scotty Diaz MD Anticoagulation 04/16/2025 Scan [facility] Scanned, [facility] Lab (SCAN) 04/15/2025 1:40 PM CDT Office Visit [facility] Family & Internal [address] [address] Scotty Diaz MD Follow Up; Anxiety (Duloxetine f/u - pt's daughter notes patient is still very anxious); UTI (Patient's daughter is wondering if patient could be checked for a UTI, no current symptoms but recent infection. ) 04/15/2025 - 04/15/2025 11:59 PM CDT Hospital Encounter [facility] [place] [address] Scotty Diaz MD Discharge Disposition: Home or Self Care (Routine Discharge) 04/15/2025 Results Follow-Up [facility] Internal [address] [address] Scotty Diaz MD URINALYSIS AUTO DIP, URINE BACTERIA CULTURE 04/15/2025 Travel 04/06/2025 Misc Documentation [facility] Internal [address] [phone] Oskar Borjas, DO After Hours Page 04/04/2025 Scan [facility] Scanned, [facility] Lab (SCAN) 04/03/[address] [address] Scotty Diaz MD Nose Problem (Epistaxis) 04/02/2025 Scan [facility] Scanned, [facility] 04/01/2025 Scan [facility] Scanned, [facility] 04/01/[address] [address] Scotty Diaz MD Anticoagulation 03/28/2025 Scan [facility] Scanned, [facility] Lab (SCAN) 03/27/2025 Telephone [facility] Internal [address] [address] Scotty Diaz MD Medication Request 03/26/2025 Telephone [facility] Internal [address] [address] Scotty Diaz MD Nausea 03/26/2025 Patient Outreach [facility] Internal [address] [phone] Yuko Stone RN Hospital Follow Up (Tcm #1) 03/22/2025 Scan [facility] Scanned, [facility] Lab (SCAN) 03/22/[address] [address] Scotty Diaz MD Medication Request 03/15/2025 Telephone [facility] Internal [address] [address] Scotty Diaz MD Anticoagulation (/) 03/12/2025 1:00 PM CDT Office Visit [facility] Internal [address] [address] Scotty Diaz MD Hospital F/U (Patient was admitted to [facility] hospital 01/18 - 02/07 for pulmonary hypertension. ); Anxiety (Patient's medication was change at [facility], the family has noticed she is unusually anxious, flat affect, and seems more depressive than normal. Patient's family is wondering if patient needs to be referred to psychiatry for further mental evaluation. ); Lab Order (custodial is requesting a standing order for weekly INR's, eliquis was changed to warfarin during hospitalization. ); Fatigue (Family is requesting a UA since patient has been having frequent UTI's ) 03/12/2025 Scan [facility] Scanned, [facility] 03/12/2025 Telephone [facility] Internal [address] [address] Scotty Diaz MD Medication Reconciliation 03/12/2025 Travel 03/11/2025 Scan [facility] Scanned, [facility] 03/11/2025 Patient Outreach [facility] Internal [address] [phone] Yuko Stone, RN Hospital Follow Up 03/06/2025 Patient Outreach [address] [phone] Yuko Stone, RN Hospital Follow Up 03/04/2025 Patient Outreach [facility] Internal [address] [phone] Yuko Stone, RN Hospital Follow Up 03/01/2025 Patient Outreach [address] [phone] Yuko Stone, RN Hospital Follow Up 02/26/2025 Patient Outreach [address] [phone] Yuko Stone, RN Hospital Follow Up 02/20/2025 Patient Outreach [address] [phone] Yuko Stone, RN Hospital Follow Up from Last 3 Months Immunizations Immunization Administration Dates Next Due Pneumococcal (Prevnar 7) 11/09/2013 Tdap (Generic) 11/22/2022 Zoster (Zostavax) 61014 Unt/0.65Ml 08/26/2014 Family History Medical History Relation [...] drink = 0.6 oz pur e alcohol) [facility] Utilities Answer Date Recorded In the past [address] [facility] [place] [employer], gas, oil, or water [employer] threatened to shut off services in your [...] any time in the past 12 m [facility], were you homeless or living in a penitentiary (including now)? No 01/04/2025 Comments No Sex and Gender Information Value Date Recorded Sex Assigned at Female 12/12/2024 12:17 PM BOXER OPERATOR Legal Sex Female 9:27 AM CDT Gender Identity Female 12/12/2024 12:17 PM BOXER OPERATOR Sexual Orientation Not on file Last Filed [...] Description 06/18/2025 1:40 PM CDT Office Visit [facility] Medical Group Family & Internal Medicine - [address] [phone] Scotty Diaz MD [address] [place] [address] Health Maintenance Due Date Last Done Comments [...] 05/09/2019, 05/17/2016, Additional history exists PHQ-2 (Physician [place]) Completed 12/12/2024 Meningococcal B Vaccine Aged Out [...] Associated Diagnosis Comments PT/INR (OUTSIDE LAB) Routine 05/14/2025 PT/INR (OUTSIDE LAB) Routine 05/07/2025 PT/INR (OUTSIDE LAB) Routine 05/02/2025 OUTSIDE PT/INR (SCAN ORDER) 04/30/2025 OUTSIDE PT/INR (SCAN ORDER) 04/23/2025 PT/INR (OUTSIDE LAB) Routine 04/17/2025 OUTSIDE PT/INR [...] UTI HEMOGLOBIN, GLYCOSYLATED Routine 01/03/2025 5:45 PM BOXER OPERATOR from Last 3 Months or Most Recently Relevant to Health Maintenance Results * PT/INR (OUTSIDE LAB) (05/14/2025) Only the most recent of6 resultswithin the time period is included. INR WHOLE BLOOD 2.27 05/14/2025 us Default History Genericprovider LAB-OUTSIDE/ABST RACTED Final Result * OUTSIDE PT/INR (SCAN ORDER) (04/30/2025) Only the most recent of6 resultswithin the time period is included. 04/30/2025 us [facility] Scanned SCANNING Final Resu lt * (ABNORMAL) URINE BACTERIA CULTURE (04/15/2025 2:42 PM CDT) SPEC DESCRIPTION URINE VOIDED 04/15/2025 2:42 PM CDT [facility] SPECIAL REQUESTS NO SPECIAL REQUEST 04/15/2025 2:42 PM CDT [facility] CULTURE RESULT EQUAL OR >100,000 CFU/mL ESCHERICHIA COLI, EXTENDED SPECTRUM BETA LACTAMASE SCHOOL BUS DISPATCHER (A) 04/19/2025 8:26 AM CDT [facility] URINE SPECIMEN FROM URETHRA / Unknown 04/15/2025 2:42 PM CDT 04/15/2025 8:45 PM CDT Narrative Organism Antibiotic Method Susceptibility Escherichia coli, extended spectrum beta lactamase master automotive technician ESBL CHINYERE (VITEK) POSITIVE: Resistant Escherichia coli, extended spectrum beta lactamase master automotive technician AMPICILLIN CH[place]YERE (VITEK) Resistant Escherichia coli, extended spectrum beta lactamase master automotive technician AMOXICILLIN/CLAVULANIC A CH[place]YERE (VITEK) Sensitive Escherichia coli, extended spectrum beta lactamase master automotive technician PIPRACIL/TAZO CH[place]YERE (VITEK) Sensitive Escherichia coli, extended spectrum beta lactamase master automotive technician CEFAZOLIN (OTHER) CH[place]YERE (VITEK) Resistant Escherichia coli, extended spectrum beta lactamase master automotive technician CEFAZOLIN (URINE) CH[place]YERE (VITEK) Resistant Escherichia coli, extended spectrum beta lactamase master automotive technician CEFTRIAXONE [place]ERE (VITEK) Resistant Escherichia coli, extended spectrum beta lactamase master automotive technician CEFEPIME CH[place]YERE (VITEK) Sensitive Escherichia coli, extended spectrum beta lactamase master automotive technician AZTREONAM [place]ERE (VITEK) Sensitive Escherichia coli, extended spectrum beta lactamase master automotive technician ERTAPENEM [place]ERE (VITEK) Sensitive Escherichia coli, extended spectrum beta lactamase master automotive technician IMIPENEM CH[place]ERE (VITEK) Sensitive Escherichia coli, extended spectrum beta lactamase master automotive technician MEROPENEM CH[place]YERE (VITEK) Sensitive Escherichia coli, extended spectrum beta lactamase master automotive technician GENTAMICIN CHINYERE (VITEK) Sensitive Escherichia coli, extended spectrum beta lactamase master automotive technician CIPROFLOXACIN CH[place]YERE (VITEK) Resistant Escherichia coli, extended spectrum beta lactamase master automotive technician LEVOFLOXACIN CH[place]YERE (VITEK) Resistant Escherichia coli, extended spectrum beta lactamase master automotive technician TETRACYCLINE CH[place]ERE (VITEK) Resistant Escherichia coli, extended spectrum beta lactamase master automotive technician NITROFURANTOIN CH[place]YERE (VITEK) Sensitive Escherichia coli, extended spectrum beta lactamase master automotive technician TRIMETH-SULFAMETH. CH[place]YERE (VITEK) Sensitive Escherichia coli, extended spectrum beta lactamase master automotive technician FOSFOMYCIN CH[place]YERE (KB) Sensitive us Scotty Diaz MD MICROBIOLOGY - GENERAL ORDERAB LES Final Result [facility] [address] [place] [address], [phone] * (ABNORMAL) URINALYSIS AUTO DIP (04/15/2025) COLOR (U) YELLOW YELLOW [facility] TRANSPARENCY CLOUDY(A) CLEAR [facility] GLUCOSE (U) NEGATIVE NEGATIVE MG/DL [facility] BILIRUBIN (U) NEGATIVE NEGATIVE MG-[facility] TH [facility] KETONES MG/DL (U) NEGATIVE NEGATIVE MG/DL [facility] SPECIFIC GRAVITY (U) 1.020 1.001 - 1.035 [facility] BLOOD (U) NEGATIVE NEGATIVE [facility] U PH 5.5 5.0 - 9.0 [facility] PROTEIN (U) NEGATIVE NEGATIVE mg/dL [facility] UROBILINOGEN 0.2 0.2 - 1.0 EU/dL = mg/dL [facility] NITRITES NEGATIVE NEGATIVE MG/DL [facility] LEUKOCYTES (U) TRACE(A) NEGATIVE MG-SO [facility] URINE SPECIMEN FROM URETHRA / Unknown 04/15/2025 Scotty Diaz MD URINE ORDERABLES Final Result Performing Organization Address [facility] Co de Phone Number [facility] [address] [place] [address], [place] * URINALYSIS (03/13/2025 12:00 AM CDT) URINE SPECIMEN OBTAINED BY CLEAN CATCH PROCEDURE / Unknown 03/13/2025 cSotty Diaz MD URINE ORDERABLES Final Result Performing Organization Address [facility] Co de Phone Number [facility] ONBASE * (ABNORMAL) HEMOGLOBIN, GLYCOSYLATED (01/03/2025 5:45 PM BOXER OPERATOR) HGB A1C 7.2(H) <5.7 % 01/03/2025 7:51 PM BOXER OPERATOR [facility] Comment: ADA GUIDELINES 2010 5.7 TO 6.4% INCREASED RISK OF DIABETES > OR = 6.5% CONSISTENT WITH DIABETES ESTIMATED AVG GLUCOSE 160 mg/dL 01/03/2025 7:51 PM BOXER OPERATOR [facility] 01/03/2025 5:45 PM BOXER OPERATOR Kike Palencia MD LABORATORY Final Result Performing Organization Address [facility] Co de Phone Number [facility] [address] [place] [address], [place] [phone] from Last 3 Months or Most Recently Relevant to Health Maintenance Additional Health Concerns Infection Onset Date Last Indicated ESBL - Extended Spectrum Beta-lactamase 04/15/20 25 04/15/2025 Insurance [employer] Advance Directives Documents on File Type Date Recorded Patient Hand Screen Printer Expl anation Advance Directives and Livin g [...] Options: OxygenSucti onCPAP/BIPAPIV FluidsIV Medications Care Teams Incubator Operator Relationship Specialty Start Date End Date Scotty Diaz MD [address] [place] [id number] PCP - General INTERNAL MEDICINE 12/12/24
--- OUTSIDE RECORDS SUMMARY | 2025-05-20 09:28 | XMS_ITS | Encounter Summary ---
Author Organization [facility] Address [address] [place] [address] Care Team Providers Care Regional Training Manager Name Role Phone Scotty Diaz MD Primary Care Provider [phone] Reason for Visit * Reason Onset Date Comments Medication 05/14/2025 Encounter Details Date Type Department Care Team (Late st Contact Info) Description 05/14/2025 Telephone [facility] Medical Group Family & Internal Medicine [facility] [address] [place] [address] Scotty Diaz MD [facility] [place] [address] Medication Social History Tobacco Use Types Packs/Day Years Used Date Smoking Tobacco: Never Smokeless Tobacco: Never Alcohol Use Standard Drinks/Week Comments Never 0 (1 standard drink = 0.6 oz pur e alcohol) [facility] Utilities Answer Date Recorded In the past 12 months has [facility] [employer] gas, oil, or water [employer] threatened to shut off services in your [...] any time in the past 12 [facility], were you homeless or living in a group home (including now)? No 01/04/2025 Comments No Sex and Gender Information Value Date Recorded Sex Assigned at Female 12/12/2024 12:17 PM CHAMBER OF COMMER[employer] DIVISION MANAGER Legal Sex Female 9:27 AM CDT Gender Identity Female 12/12/2024 12:17 PM CHAMBER OF COMMERCE DIVISION MANAGER Sexual Orientation Not on file documented [...] Progress Notes * Caprice Obregon MA - 05/14/2025 5:01 PM CDT Order faxed to [facility]. * Scotty Diaz MD - 05/14/2025 3:53 PM CDT Would have her hold hydroxyzine while taking methocarbamol * Caprice Obregon MA - 05/14/2025 11:53 AM CDT Received a fax from [facility] stating the following: Dr. Joe Thao went to ER on 05/10 post fall from 05/05. They put her on methocarbamol 750mg TID. She is also on hydroxyzine 10mg TID PRN and Zolpidem 5mg @ HS. Just a FYI - Concerned about increased falls. CB# [phone] FX# [phone] documented in this encounter Plan of Treatment Upcoming Encounters Date Type Department Care Team (Late st Contact Info) Description 06/18/2025 1:40 PM CDT Office Visit [facility] Medical Group Family & Internal Medicine - [id number] [place] [address] Scotty Diaz MD [address] [place] [address] documented as of this encounter Visit Diagnoses Not on filedocumented in this encounter Additional Health Concerns Infection Onset Date Last Indicated Resolved Time ESBL - Extended Spectrum Beta-lactamase 04/15/2025 0 04/15/2025 Assessment Noted Time PHQ-9 Depression Total Score: 13 025 12:14 PM CHAMBER OF COMMER[employer] DIVISION MANAGER documented as of this encounter Care Teams Regional Training Manager Relationship Specialty Start Date End Date Scotty Diaz MD [address] [place] [id number] PCP - General INTERNAL MEDICINE 12/12/24 documented as of this encounter
[2025-05-20 10:27] VITALS: BP 118/75; PULSE 95; RESP 22; O2SAT 96
--- NOTE | 2025-05-20 10:27 | ED_ITS ---
HPI - Neck Pain/Injury General Chief Complaint: Neck Pain/Injury Stated Complaint: pain after fall several days ago Time Seen by Provider: 05/20/25 09:04 Source: patient and RN notes reviewed Mode of arrival: EMS Limitations: no limitations History of Present Illness HPI Narrative: Patient presents with persistent pain in multiple areas ever since she fell several days/weeks ago. Patient was seen here at the time of her fall and it was deemed that she had no broken bones however she has remaining bruising and contusions and is complaining of persistent neck pain particularly on the left and radiating into her left shoulder where she also has pain. In addition she is having right hip pain. She has been taking extra-strength Tylenol every 6 hours and states that it does not change or effect her pain at all. She denies any paresthesias. Related Data Home Medications ?Medication ?Instructions ?Recorded ?Confirmed ?Last Taken ?Type duloxetine 60 mg capsule,delayed 60 mg PO DAILY 03/20/24 08/02/24 Unknown History release leflunomide 20 mg tablet 20 mg PO DAILY 03/20/24 08/02/24 Unknown History metformin 500 mg tablet 500 mg PO BIDWM 03/20/24 08/02/24 Unknown History metoprolol succinate 25 mg 25 mg PO HS 03/20/24 08/02/24 Unknown History tablet,extended release 24 hr pravastatin 40 mg tablet 40 mg PO DAILY 03/20/24 08/02/24 Unknown History trazodone 100 mg tablet 200 mg PO HS 03/20/24 08/02/24 Unknown History clonazepam 0.5 mg tablet See Rx Instructions .Route .COMPLEX 08/02/24 08/02/24 Unknown History fexofenadine 180 mg tablet 180 mg PO DAILY 08/02/24 08/02/24 Unknown History losartan 100 mg tablet 100 mg PO DAILY 08/02/24 08/02/24 Unknown History Allergies Allergy/AdvReac Type Severity Reaction Status Date / Time No Known Allergies Allergy Unverified 05/20/25 08:27 [facility] Past Medical History Medical History Lumbar stenosis Pancreatitis Hypertension CHF (congestive heart failure) Pulmonary embolism Chronic respiratory failure Elevated liver enzymes Upper abdominal pain Diabetes Ventricular bigeminy Insomnia Degenerative lumbar disc Family History Family History Sibling Dementia Father Acute myocardial infarction Mother Diabetes mellitus Social History Social History Social History: POLST signed 12/12/24 reports Yes CPR with selective treatment Smoking status: Never smoker Alcohol intake: never Substance use: never Do You Feel Safe in your Home?: Yes Lack of Transportation: No Lack of Food: Never True Current Housing: I Have Housing Concerned About Future Housing: No Difficulty Paying Gas/Electric Bills: No Difficulty Paying for Meds: No Currently Unemployed: No Education: Decline to Answer Difficulty w/ Childcare or Family Care: No Living arrangements: assisted living Additional living arrangements comments: [facility] Spiritual care concerns: No (Holiness) Exam 2 Narrative: GENERAL: Well-appearing, well-nourished, and in no acute distress. HEAD: Normocephalic, atraumatic. EYES: Non injected, non icteric ENT: Nares clear, no rhinorrhea or epistaxis. Gross auditory acuity intact. NECK: Supple. No meningismus. CHEST: Speaking in full sentences. No respiratory distress. Patient has ecchymosis on left superior chest/shoulder/neck, well healing. HEART: Regular rate and rhythm. . ABDOMEN: Soft, nondistended. EXTREMITIES: Normal range of motion. No TTP of shoulder girdle. Mild TTP R hip. SKIN: Warm, dry. Scattered ecchymosis. NEURO: No focal deficits. Alert and oriented. Answering questions. Following commands. Normal speech without aphasia or dysarthria. PSYCH: Congruent mood and affect. Course Vital Signs Vital signs: Vital Signs Temperature 97.6 F 05/20/25 08:19 Pulse Rate 98 05/20/25 08:19 Respiratory Rate 14 05/20/25 08:19 Pulse Oximetry 94 05/20/25 08:19 Oxygen Delivery Nasal Cannula 05/20/25 08:19 Oxygen Flow Rate 2 05/20/25 08:19 Temperature 97.6 F 05/20/25 08:19 Pulse Rate 95 05/20/25 10:27 Respiratory Rate 22 H 05/20/25 10:27 Blood Pressure 118/75 05/20/25 10:27 Pulse Oximetry 96 05/20/25 10:27 Oxygen Delivery Nasal Cannula 05/20/25 08:19 Oxygen Flow Rate 2 05/20/25 08:19 MDM - Neck Pain/Injury MDM Narrative Medical decision making narrative: Patient presents with persistent pain after having a fall several days/weeks ago. Imaging at that time was negative. No acute/interval trauma. In the emergency department she is afebrile with acceptable vital signs. Medication list is reviewed and does show patient on warfarin. She does have lidocaine patches ordered. Also acetaminophen 650mg q6 hours and 1% diclofenac gel. Patient is reassessed approximately 20-30 minutes after receiving [place] tablets. Her pain is slightly improved. Imaging negative for acute process. No leukocytosis. Anemia stable from previous. Patient has baseline CKD and her GFR remains stable/similar. Patient is an elevated INR supratherapeutic but otherwise <4.5 so vitamin K and/or reversal not indicated as she is without any bleeding other than the previous superficial ecchymosis. Advised that she hold today and while dose and follow-up with her account officer and/or PCP for further instructions. Represcribed patient's diclofenac, increase her acetaminophen to 4000 mg total per day, and prescribed additional lidocaine patches. For breakthrough pain, patient was prescribed short course of opiate/narcotic medications. As patient was being discharged, patient's son arrives and wanted to discuss. Notably, patient had chronically been on oxy opiate therapy for 2 years and quit in December. They had concerns when she was on it as well as once she came off of it. Patient has seen pain specialists. Patient is tearful at this time. I believe he has a strong degree of hyperalgesia given the combination multiple analgesic medications she has been on historically. We discussed that I would likely not be able to completely resolve her pain but that the goal of aggressive multimodal pain management is to reduce her pain to tolerable level was allow her to continue to move and stay active. Son notes that physical therapy services are offered at the assisted living facility and they have encouraged her to do so but she states she cannot due to pain. We discussed another alternative option would be to have long-term facility placement either from the emergency department or admitting PT evaluation and subsequent discharged when these facilities however she is adamant that this is not in line with her goals wishes values or desires at this time. Differential Diagnosis Differential diagnosis: Likely disc disorder of cervical region, fracture of cervical spine without lesion of spinal cord, cervical spondylosis, strain of neck muscle and other (Occult fracture, hematoma; bony contusion) Lab Data Attestation: I reviewed the patient's lab results. 05/20/25 12:11 05/20/25 12:11 Labs: Lab Results 05/20/25 Range/Units 12:11 WBC 5.7 (4.5-10.0) K/mm3 RBC 3.70 L (4.2-5.4) M/mm3 Hgb 11.0 L (12.0-15.0) g/dL Hct 34.3 L (37.0-47.0) % MCV 92.7 (80-100) fl MCH 29.7 (26-34) pg MCHC 32.1 (32-36) g/dl RDW 20.7 H (11.5-14.5) % Plt Count 279 (150-375) k/mm3 MPV 10.2 (7.4-10.4) fl Immature Gran % (Auto) 0.4 (0-0.5) % Neut % (Auto) 64.7 (45.5-73.1) % Lymph % (Auto) 16.1 L (18.3-44.2) % Dunn % (Auto) 13.0 H (2.6-8.5) % Eos % (Auto) 4.9 H (0-4.4) % Baso % (Auto) 0.9 (0.2-1.2) % Lymph # (Auto) 0.92 (0.9-3.2) K/mm3 Dunn # (Auto) 0.7 H (0.1-0.6) K/mm3 Eos # (Auto) 0.3 (0-0.3) K/mm3 Baso # (Auto) 0.1 (0.0-0.1) K/mm3 Abs Immat Gran (auto) 0.02 (0.00-0.031) K/mm3 Absolute Neuts (auto) 3.7 (1.3-6.7) K/mm3 Absolute Nucleated RBC 0.000 (0.0-0.012) K/mm3 Nucleated RBC % 0.0 (0.0-0.2) % PT 36.9 H (11.1-14.7) Seconds INR 4.0 Sodium 139 (137-145) mmol/L Potassium 3.8 (3.4-5.0) mmol/L Chloride 109 H (98-107) mmol/L Carbon Dioxide 19 L (22-30) mmol/L Anion Gap 11 (4-12) mmol/L BUN 25 H (7-17) mg/dL Creatinine 1.50 H (0.7-1.0) mg/dL Estim Creat Clear Calc 23 ml/min Estimated GFR 33 L (59 - ) Glucose 92 (65-110) mg/dL Calcium 9.6 (8.4-10.2) mg/dL Total Creatine Kinase 122 (30-135) U/L Imaging Data Radiologist's impression: Impressions Cervical Spine CT 05/20/25 10:47 IMPRESSION: No evidence for cervical spine fracture or traumatic subluxation. Multilevel degenerative changes of the cervical spine. Hip CT 05/20/25 10:54 Impression: 1. No acute abnormality of the right hip, left foot, thoracic or lumbar spine detected by CT. Shoulder CT 05/20/25 10:54 Impression: 1. No acute abnormality of the right hip, left foot, thoracic or lumbar spine detected by CT. Thoracic/Lumbar Spine CT 05/20/25 10:54 Impression: 1. No acute abnormality of the right hip, left foot, thoracic or lumbar spine detected by CT. Discharge Plan Discharge Clinical Impression: Degenerative joint disease of cervical spine, Ecchymosis, Anemia, CKD (chronic kidney disease), Supratherapeutic INR Fall Qualifiers: Encounter type: initial encounter Qualified Code(s): W19.XXXA - Unspecified fall, initial encounter Patient Disposition: [place] Senior Living/Asst Living Condition: Stable Instructions: Antibiotic Form, Cervical Strain (ED), Chronic Kidney Disease (ED), Chronic Kidney Disease Diet (DC), Cervical Sprain (ED), Anemia (ED), Elevated INR (ED), Opioid Safety (ED), Degenerative Disc Disease (ED), Ecchymosis (ED) Additional Instructions: Continue taking the multimodal pain regimen of acetaminophen, diclofenac, and lidocaine patches (refills have been provided if necessary). Acetaminophen/Tylenol (maximum 4000 mg per day) is safe to take. For breakthrough pain, a short course of opiate/narcotic medications has been prescribed. No fractures on the CT of your neck, back (upper and lower), L shoulder, or R hip. Your INR was slightly elevated (4.0) but without any bleeding other than the superficial bleeding you have. Hold today and tomorrow's dose of warfarin and follow up with your primary care provider and/or account officer (whomever prescribes your warfarin). Patient Language: Macedonian Prescriptions: New lidocaine 4 % adhesive patch,medicated 1 patch topical DAILY PRN (Reason: pain) Qty: 10 0RF acetaminophen 500 mg capsule 1,000 mg PO Q6H PRN (Reason: pain) Qty: 30 0RF diclofenac sodium 1 % gel 2 g topical QID Qty: 50 0RF oxycodone 5 mg capsule 5 mg PO Q8H PRN (Reason: pain) 5 Days Qty: 7 0RF Rx Instructions: Take 1/2 cap (2.5 mg) No Action clonazepam 0.5 mg tablet See Rx Instructions .ROUTE .COMPLEX Rx Instructions: 0.5mg tablet, take 2-3 tablets at hs for anxiety/sleep fexofenadine 180 mg Tablet 180 mg PO DAILY losartan 100 mg tablet 100 mg PO DAILY amlodipine [Norvasc] 5 mg Tablet 5 mg PO DAILY Qty: 60 0RF amoxicillin-pot clavulanate 875-125 mg tablet 1 tablet PO Q12H Qty: 6 0RF acetaminophen 500 mg tablet 1,000 mg PO TID PRN (Reason: rinku) 7 Days Qty: 42 0RF methocarbamol 750 mg tablet 750 mg PO TID Qty: 30 0RF metformin 500 mg tablet 500 mg PO BIDWM pravastatin 40 mg tablet 40 mg PO DAILY leflunomide 20 mg tablet 20 mg PO DAILY trazodone 100 mg tablet 200 mg PO HS metoprolol succinate 25 mg tablet extended release 24 hr 25 mg PO HS duloxetine 60 mg capsule,delayed release(DR/EC) 60 mg PO DAILY Eliquis 2.5 mg Tablet 2.5 mg PO Q12HR Qty: 60 0RF nitrofurantoin monohyd/m-cryst [Macrobid] 100 mg capsule 100 mg PO Q12H 3 Days Qty: 6 0RF Rx Instructions: filled 07/24/24 Follow-up/Referrals: Cruz Diaz [Other] (listed as PCP on [employer] paperwork) UNKNOWN,DOCTOR [Primary Care Provider] - Stand Alone Forms: Senior Living Discharge Time of Disposition: 13:10
[2025-05-20] MEDS: HYDROcodone/acetaminophen (*CRX) 5-325 MG TABLET 1 TAB PO (11:48)
[2025-05-20 12:17] LABS: Hematocrit 34.3 % (37.0-47.0); Hemoglobin 11.0 g/dL (12.0-15.0); Immature Granulocyte Percent A 0.4 % (0-0.5); Lymphocytes Absolute Auto 0.92 K/mm3 (0.9-3.2); Mean Corpuscular HGB Conc 32.1 g/dl (32-36); Mean Corpuscular Hemoglobin 29.7 pg (26-34); Mean Corpuscular Volume 92.7 fl (80-100); Nucleated Red Blood Cells Absolute Auto 0.000 K/mm3 (0.0-0.012); Nucleated Red Blood Cells Perc 0.0 % (0.0-0.2); Platelet Count Result 279 k/mm3 (150-375); Red Blood Count 3.70 M/mm3 (4.2-5.4); White Blood Count 5.7 K/mm3 (4.5-10.0)
[2025-05-20 12:38] LABS: Anion Gap 11 mmol/L (4-12); Blood Urea Nitrogen 25 mg/dL (7-17); Calcium 9.6 mg/dL (8.4-10.2); Carbon Dioxide 19 mmol/L (22-30); Chloride 109 mmol/L (98-107); Creatine Kinase 122 U/L (30-135); Estimated CRCL calculation 23 ml/min; Estimated Glomerular Filt Rate 33; Glucose 92 mg/dL (65-110); Potassium 3.8 mmol/L (3.4-5.0); Sodium 139 mmol/L (137-145)
[2025-05-20 12:42] LABS: INR 4.0; Prothrombin Time 36.9 Seconds (11.1-14.7)
--- NOTE | 2025-05-20 14:09 | PC.NURSE ---
Spoke with Edna from [facility] who states that they do have transportation that can come and turkey picker the patient if family members are unable to take the patient back to the facility
--- NOTE | 2025-05-20 14:25 | PC.NURSE ---
Family of patient at bedside to take the patient after discharge, son states that she has had some oxycodone dependancy issues and has quit taking the medication cold turkey which has increased her current issues, states that the patient gets drowsy when combining the medications. patient crying during conversation. family member requested to talk to EDP- Dr Anguiano aware
[2025-05-20] MEDS: diazePAM INJ (*CRX) 10 MG/2 ML SYRINGE 2.5 MG IV PUSH (15:08)
== END 2025-05-20 15:52 ==
PROVIDERS: Emergency Provider Student in an Organized Health Care Education/Training Program
DX: M19.90 Unspecified osteoarthritis, unspecified site (principal); M47.812 Spondylosis without myelopathy or radiculopathy, cervical region; S20.212A Contusion of left front wall of thorax, initial encounter; D64.9 Anemia, unspecified; I13.0 Hypertensive heart and chronic kidney disease with heart failure and stage 1 through stage 4 chronic kidney disease, or unspecified chronic kidney disease; E11.22 Type 2 diabetes mellitus with diabetic chronic kidney disease; N18.9 Chronic kidney disease, unspecified; I50.9 Heart failure, unspecified; R79.1 Abnormal coagulation profile; Z86.711 Personal history of pulmonary embolism; Z79.84 Long term (current) use of oral hypoglycemic drugs; W19.XXXA Unspecified fall, initial encounter
CPT/HCPCS: 36415; 72125; 72128; 72131; 73200; 73700; 80048; 82550; 85025; 85610; 96374; 99284; A9270; J3360

== ENCOUNTER 2025-10-01 13:15 | Inpatient (IN) | payer OTHER, SELFPAY ==
[2025-10-01] VITALS (15 sets, daily range): BP systolic 97–122; BP diastolic 43–83; PULSE 84–93; RESP 15–24; TEMP 36.4–36.7; O2SAT 86–96; BMI 24.8
--- NOTE | ~2025-10-01 | XR_ITS ---
Examination: XR chest 2V Clinical History: leukocytosis, cough, recent COVID infection Comparison: 10/08/2025 Technique: PA and Lateral Findings: Cardiomediastinal silhouette normal size and configuration. Tiny focal pneumonitis left lateral midlung.. No acute bony abnormality. IMPRESSION: 1. Tiny focal pneumonitis left lung. Reviewed, dictated and finalized at location R. WATCHER
--- NOTE | ~2025-10-01 | XR_ITS ---
EXAMINATION: XR chest 1V portable COMPARISON: No comparisons available. HISTORY: hypoxia; hx CHF FINDINGS: The lungs are clear, no effusion. No pneumothorax. Heart is normal size. Mediastinal and hilar contours are within normal limits. Bony thorax no acute abnormality. Miscellaneous: None Impression: No acute cardiopulmonary abnormality. Reviewed, dictated and finalized at location P. SHIELD TECHNICIAN Impression: No acute cardiopulmonary abnormality.
--- NOTE | ~2025-10-01 | XR_ITS ---
EXAMINATION: XR chest 1V portable COMPARISON: No comparisons available. HISTORY: COVID and PE FINDINGS: Mild pulmonary venous congestion. No pneumothorax. Mild cardiomegaly. Mediastinal and hilar contours are within normal limits. Bony thorax no acute abnormality. Miscellaneous: None Impression: Mild CHF Reviewed, dictated and finalized at location P. TRIC REFRIGERATOR PREPARER Impression: Mild CHF
--- NOTE | ~2025-10-01 | US_ITS ---
BILATERAL LOWER EXTREMITY VENOUS DUPLEX Clinical History: Pulmonary embolism . Comparison: None. Technique: Grayscale, color, duplex/spectral Doppler sonography bilateral lower extremities. Findings: Bilateral common femoral, femoral, popliteal, and calf veins compressible and color Doppler patent. Normal augmentation with distal compression. No internal echoes. IMPRESSION: 1. No DVT either leg. Reviewed, dictated and finalized at location R. AL TECHNICAL WRITER IMPRESSION: 1. No DVT either leg.
--- NOTE | ~2025-10-01 | US_ITS ---
EXAMINATION: US retroperitoneal comp DATE: 10/04/2025 10:19 INDICATION: Acute on chronic kidney disease TECHNIQUE: Multiple ultrasound grayscale images of the kidneys were obtained. COMPARISON: Ultrasound dated 08/06/[address] dated 05/10/2025 FINDINGS: The right kidney measures 9.8 x 5.3 x 4.5 cm. The left kidney measures 9.8 x 5.1 x 5.4 cm. The kidneys demonstrate normal echogenicity. 1.3 cm anechoic cyst at the upper pole of the right kidney. There is no hydronephrosis in either kidney. No stones identified. The bladder is normal with bilateral ureteral jets visualized in the bladder and color Doppler. IMPRESSION: 1. 1.3 similar right renal cyst. Otherwise normal kidneys without hydronephrosis. Reviewed, dictated and finalized at location A. DUST SPRAYER IMPRESSION: 1. 1.3 similar right renal cyst. Otherwise normal kidneys without hydronephros is.
--- NOTE | ~2025-10-01 | CT_ITS ---
EXAMINATION: CTA chest PE protocol DATE: 10/01/2025 15:20 TRANSPORT CONDUCTOR INDICATION: Chest pain and shortness of breath TECHNIQUE: Computed tomographic angiography (CTA) of the chest was performed with 100 mL Omnipaque-350 intravenous contrast. The dose-length product was 223.33 mGy-cm. Maximum intensity projection 3D-reconstructions of the aorta and other arteries were constructed by the technologist on a separate workstation. COMPARISON: CT dated 05/10/2025 FINDINGS: There 0is pulmonary embolism in a subsegmental pulmonary artery of the right lower lobe, small thrombus burden. No thoracic lymphadenopathy. Heart size normal. No significant pleural or pericardial effusion. Upper abdomen is unremarkable. There is a 3 mm left upper lobe nodule, likely benign. There are a few scattered areas of groundglass opacification. There is dependent atelectasis. No endobronchial lesions. No pneumothorax.. Moderate thoracic spondylosis. IMPRESSION: 1. Pulmonary embolism subsegmental pulmonary artery right lower lobe, small thrombus burden. 2: Patchy faint groundglass opacities. Differential diagnosis includes pneumonia, early mild edema, hypersensitivity pneumonitis and nonspecific interstitial pneumonia. Reviewed, dictated and finalized at location I. SPORT CONDUCTOR IMPRESSION: 1. Pulmonary embolism subsegmental pulmonary artery right lower lobe, small thr ombus burden. 2: Patchy faint groundglass opacities. Differential diagnosis includes pneumoni a, early mild edema, hypersensitivity pneumonitis and nonspecific interstitial pneumonia.
--- NOTE | 2025-10-01 13:24 | ECG_ITS ---
Test Date: 2025-10-01 13:36:51 Measurements Intervals [place] Rate: 82 P: 56 WA: 152 QRS: -82 QRSD: 88 T: -8 QT: 366 QTc: 428 Interpretive Statements SINUS RHYTHM LEFT AXIS DEVIATION POSSIBLE RIGHT VENTRICULAR CONDUCTION DELAY ANTEROSEPTAL INFARCT, AGE INDETERMINATE BASELINE ARTIFACT- I, II, III, AVR, AVL, AVF ABNORMAL ECG Compared to ECG 08/03/2024 07:50:39 NO SIGNIFICANT CHANGE Electronically Signed On 10-01-2025 14:24:46 HUMAN SERVICE COORDINATOR by Facundo Sam D.O.
--- NOTE | 2025-10-01 13:33 | ED.URI ---
HPI - URI/Sore Throat General Chief Complaint: Upper Respiratory Infection Stated Complaint: sick case Source: patient and RN notes reviewed Mode of arrival: EMS Limitations: no limitations History of Present Illness HPI Narrative: Patient (goes by Keesha) presents with report of feeling sick.Patient reports that she has had a cough productive of phlegm and mucus which had been more white unclear but also occcasionally with blood. She reports chest pain but states it is more of a soreness and she has a history of costochondritis. Her symptoms started after Thanksgiving. She feels nauseated. She has a history of CHF and for this she is on 3 L nasal cannula supplemental oxygen at baseline. Has never required BiPAP for intubation. Possible sick contacts at [place] though nothing confirmed. No fevers but has been chilled. Patient reports being on Elliquis for CHF (?), denies having afib or mechnical valve. Possible history of PE. She reports having diarrhea. She had been experiencing SOB with exertion but denies SOB now. Discussed code status with patient; she reports in the event of cardiopulmonary arrest, she would not want to have chest compressions or be intubated. She is complaining of little white sores in mouth. Related Data Home Medications ?Medication ?Instructions ?Recorded ?Confirmed ?Last Taken ?Type duloxetine 60 mg capsule,delayed 60 mg PO DAILY 03/20/24 10/01/25 10/01/25 History release leflunomide 20 mg tablet 20 mg PO DAILY 03/20/24 10/01/25 10/01/25 History metformin 500 mg tablet 500 mg PO DAILY@0800 03/20/24 10/01/25 10/01/25 History metoprolol succinate 25 mg 25 mg PO HS 03/20/24 10/01/25 Unknown History tablet,extended release 24 hr pravastatin 40 mg tablet 40 mg PO HS 03/20/24 10/01/25 09/30/25 History trazodone 100 mg tablet 100 mg PO HS 03/20/24 10/01/25 09/30/25 History clonazepam 0.5 mg tablet See Rx Instructions .Route .COMPLEX 08/02/24 10/01/25 Unknown History fexofenadine 180 mg tablet 180 mg PO DAILY 08/02/24 10/01/25 Unknown History losartan 100 mg tablet 100 mg PO DAILY 08/02/24 10/01/25 Unknown History apixaban 2.5 mg tablet (Eliquis) 5 mg PO Q12HR 10/01/25 10/01/25 10/01/25 History buspirone 30 mg tablet 30 mg PO BID 10/01/25 10/01/25 10/01/25 History cetirizine 10 mg tablet 10 mg PO HS 10/01/25 10/01/25 09/30/25 History ferrous sulfate 325 mg (65 mg 325 mg PO .COMPLEX 10/01/25 10/01/25 Unknown History iron) tablet furosemide 20 mg tablet 20 mg PO .COMPLEX 10/01/25 10/01/25 09/30/25 History hydroxyzine HCl 10 mg tablet 10 mg PO TID PRN anxiety 10/01/25 10/01/25 Unknown History loperamide 2 mg capsule 2 mg PO Q6H PRN loose stool 10/01/25 10/01/25 Unknown History menthol 0.44 %-zinc oxide 20.6 % 1 applic topical TID 10/01/25 10/01/25 Unknown History topical ointment (Calmoseptine) pantoprazole 40 mg tablet,delayed 40 mg PO Q12H 10/01/25 10/01/25 10/01/25 History release riociguat 2.5 mg tablet (Adempas) 2.5 mg PO TID 10/01/25 10/01/25 10/01/25 History sennosides 8.6 mg tablet (senna) 8.6 mg PO BID PRN constipation 10/01/25 10/01/25 Unknown History sulfamethoxazole 400 1 tablet PO HS 10/01/25 10/01/25 09/30/25 History mg-trimethoprim 80 mg tablet valacyclovir 500 mg tablet 500 mg PO HS 10/01/25 10/01/25 09/30/25 History zolpidem 5 mg tablet 5 mg PO HS 10/01/25 10/01/25 09/30/25 History Allergies Allergy/AdvReac Type Severity Reaction Status Date / Time adhesive tape Allergy Mild Rash Verified 10/01/25 22:08 [facility] Past Medical History Medical History (Updated 10/01/25 @ 16:50 by Windy Anguiano MD) Pulmonary hypertension Hypertension 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 Lumbar stenosis Pancreatitis CHF (congestive heart failure) Pulmonary embolism Chronic respiratory failure Elevated liver enzymes Upper abdominal pain Ventricular bigeminy Insomnia Degenerative lumbar disc Family History Family History Sibling Dementia Father Acute myocardial infarction Mother Diabetes mellitus Social History Social History Social History: POLST signed 12/12/24 reports Yes CPR with selective treatment Smoking status: Never smoker Second hand tobacco smoke exposure: Yes Alcohol intake: never Substance use: never Substance use type: does not use Lack of Transportation: No Lack of Food: Never True Current Housing: I Have Housing Concerned About Future Housing: No Difficulty Paying Gas/Electric Bills: No Difficulty Paying for Meds: No Currently Unemployed: No Education: High School Diploma/GED Difficulty w/ Childcare or Family Care: No Living arrangements: assisted living Additional living arrangements comments: [facility] Spiritual care concerns: No Exam Narrative: GENERAL: Well-appearing, well-nourished HEAD: Normocephalic, atraumatic. EYES: Non injected, non icteric ENT: Gross auditory acuity intact. Tacky mucous membranes. Mallampati Class III. Nasal cannula in place. A few small whitish ulcerated lesions buccal membrane. NECK: Supple. No meningismus. CHEST: Speaking in full sentences. No respiratory distress. Lungs clear on auscultation without appreciable crackles or wheezes although diminished. HEART: Regular rate and rhythm. . ABDOMEN: Soft, nondistended. No rigidity or guarding. Not peritoneal EXTREMITIES: Normal range of motion. Trace left lower extremity edema. SKIN: Warm, dry, no rash. NEURO: No focal deficits. Alert and oriented. Answering questions. Following commands. Normal speech without aphasia or dysarthria. PSYCH: Normal mood and affect. Course Vital Signs Vital signs: Vital Signs Temperature 97.5 F L 10/01/25 13:10 Pulse Rate 90 10/01/25 13:10 Respiratory Rate 15 10/01/25 13:10 Blood Pressure 102/83 10/01/25 13:10 Pulse Oximetry 86 L 10/01/25 13:10 Oxygen Delivery Nasal Cannula 10/01/25 13:10 Oxygen Flow Rate 3 10/01/25 13:10 Temperature 97.4 F L 10/02/25 08:00 Pulse Rate 90 12/03/25 09:30 Respiratory Rate 20 10/02/25 09:30 Blood Pressure 136/43 L 10/02/25 08:00 Pulse Oximetry 93 10/02/25 09:28 Oxygen Delivery High Flow Nasal Cannula 10/02/25 09:28 Oxygen Flow Rate 7 10/02/25 09:28 MDM MDM Narrative Medical decision making narrative: Patient presents with feeling sick, with a cough and nausea and diarrhea. In the emergency department she is afebrile with vital signs notable for hypoxia on her baseline 3 L. In moving to 6 liters/minute she does improve her oxygenation from 86 to 94-96%. AST elevation has previously been seen but then had resolved. Baseline Cr 1 - 1.7 per review of EMR thus today represents TARIQ superimposed on CKD. She has a history of CHF so fluid administration needs to be judicious however she does not appear volume overloaded on exam, on auscultation, on chest x-ray. 500cc IV fluids ordered. Normocytic anemia, a drop of 1.3 from previous but 1g from before then. New mild thrombocytopenia. BNP is elevated >12,000 with no prior for comparison. Patient has an elevated troponin, >0.4. It has been elevated previously but not to this degree. Aspirin and 3 hour troponin ordered for NSTEMI. She tests positive for covid. Given she was hypoxic on her baseline supplemental oxygen, a one time dose of Dexamethasone is ordered as per ED COVID protocol order set. Patient is on Elliquis per review of medication list from facility. Previously when seen it had been noted that she had a signed POLST indicating Full Code however in conversation with her at bedside shortly after her arrival she does note that in the event of cardiopulmonary arrest, she WOULD NOT WANT chest compressions or intubation/mechanical ventilation. CT as below. She does notably have history of PE. Given the patchy ground glass opacities, the concern is that she has pneumonia. Updated patient who verifies understanding. Discussed with environmental field technician hospitalist who will manage COVID treatment (antivirals versus antibiotics for the CT findings). Will start heparin given the NSTEMI and PE with plans to hopefully transition back to Elliquis. Will be IMU status for NSTEMI. Did try downtitrating her to 5LPM but SpO2 was 92% so resumed 6LPM. INR 1.9. I did note that the son was telling a nurse upon his arrival that patient has pulmonary hypertension and is on special medication for this. This diagnosis is added to problem list. Repeat troponin still elevated but downtrending. Patient had noted that some of her sputum had been bloody at home. She does have a mild bloody nose while in the ED, stops on its own. Humidified air should be trialed though patient's anticoagulation puts her at increased risk of bleeds. She coughs up more scantly bloody sputum in tissue. No demarcus blood in posterior oropharynx. She is saturating 91% on her 6L now. Lungs w/o wheezes on auscultation but DuoNeb ordered given her presentation. Differential Diagnosis Differential Diagnosis: Differential diagnostic considerations for upper respiratory infection include upper respiratory infection, croup, otitis media, sinusitis, viral infection, bronchitis, influenza. Pneumonia, CHF exacerbation; ACS; PE. Considered TTP but very mild anemia (and MCV >90), thrombocytopenia, kidney dysfunction. Medical Records I have reviewed the following patient records and this information was taken into consideration when formulating the assessment and plan.: previous labs and previous ER visits Lab Data MDM Lab Attestation statement: I personally reviewed the patient's lab results. 10/02/25 06:54 10/02/25 06:54 Labs: Lab Results 10/01/25 10/01/25 10/01/25 Range/Units 13:42 13:42 13:42 WBC 9.0 (4.5-10.0) K/mm3 RBC 3.12 L (4.2-5.4) M/mm3 Hgb 9.7 L (12.0-15.0) g/dL Hct 30.5 L (37.0-47.0) % MCV 97.8 (80-100) fl MCH 31.1 (26-34) pg MCHC 31.8 L (32-36) g/dl RDW 17.0 H (11.5-14.5) % Plt Count 136 L D (150-375) k/mm3 MPV 9.1 (7.4-10.4) fl Immature Gran % (Auto) Not Reportable Neut % (Auto) Not Reportable Lymph % (Auto) Not Reportable [place] % (Auto) Not Reportable Eos % (Auto) Not Reportable Baso % (Auto) Not Reportable Lymph # (Auto) Not Reportable [place] # (Auto) Not Reportable Eos # (Auto) Not Reportable Baso # (Auto) Not Reportable Abs Immat Gran (auto) Not Reportable Absolute Neuts (auto) Not Reportable Absolute Nucleated RBC Not Reportable Total Counted 100 Neutrophils % (Manual) 894 H (46-73) % Band Neutrophils % 7 H (0-6) % Lymphocytes % (Manual) 5 L (18-44) % Monocytes % (Manual) 4 (3-9) % Nucleated RBC % Not Reportable Abs Neuts (Manual) 81.09 H (1.3-6.7) K/mm3 Abs Lymphs (Manual) 0.45 L (1.1-4.5) K/mm3 Abs Monocytes (Manual) 0.36 (0.1-0.90) K/mm3 Platelet Estimate Decreased (Adequate) Polychromasia Occasional Anisocytosis Occasional Target Cells Occasional Ovalocytes 1+ [place] Cells Occasional Schistocytes 1+ PT 21.2 H Cancelled (11.1-14.7) Seconds INR 1.9 Cancelled APTT 58.6 H (22.3-36.8) Seconds D-Dimer (<0.48) ug/mL Sodium (137-145) mmol/L Potassium (3.4-5.0) mmol/L Chloride (98-107) mmol/L Carbon Dioxide (22-30) mmol/L Anion Gap (4-12) mmol/L BUN (7-17) mg/dL Creatinine (0.7-1.0) mg/dL Estim Creat Clear Calc ml/min Estimated GFR (59 - ) Glucose (65-110) mg/dL Calcium (8.4-10.2) mg/dL Total Bilirubin (0.2-1.3) mg/dL AST (14-36) U/L ALT (6-35) U/L Alkaline Phosphatase (38-126) U/L Troponin I (0.000-0.034) ng/mL NT-Pro-B Natriuret Pep (19.9-100) pg/mL Total Protein (6.3-8.2) g/dL Albumin (3.5-5.1) g/dL Influenza A (RT-PCR) (Negative) Influenza B (RT-PCR) (Negative) RSV (RT-PCR) (Negative) SARS-CoV-2 RNA (RT-PCR) (Negative) 10/01/25 10/01/25 Range/Units 13:42 16:41 WBC (4.5-10.0) K/mm3 RBC (4.2-5.4) M/mm3 Hgb (12.0-15.0) g/dL Hct (37.0-47.0) % MCV (80-100) fl MCH (26-34) pg MCHC (32-36) g/dl RDW (11.5-14.5) % Plt Count (150-375) k/mm3 MPV (7.4-10.4) fl Immature Gran % (Auto) Neut % (Auto) Lymph % (Auto) [place] % (Auto) Eos % (Auto) Baso % (Auto) Lymph # (Auto) [place]ies # (Auto) Eos # (Auto) Baso # (Auto) Abs Immat Gran (auto) Absolute Neuts (auto) Absolute Nucleated RBC Total Counted Neutrophils % (Manual) (46-73) % Band Neutrophils % (0-6) % Lymphocytes % (Manual) (18-44) % Monocytes % (Manual) (3-9) % Nucleated RBC % Abs Neuts (Manual) (1.3-6.7) K/mm3 Abs Lymphs (Manual) (1.1-4.5) K/mm3 Abs Monocytes (Manual) (0.1-0.90) K/mm3 Platelet Estimate (Adequate) Polychromasia Anisocytosis Target Cells Ovalocytes [place] Cells Schistocytes PT (11.1-14.7) Seconds INR APTT Cancelled (22.3-36.8) Seconds D-Dimer 0.82 H (<0.48) ug/mL Sodium 137 (137-145) mmol/L Potassium 4.2 (3.4-5.0) mmol/L Chloride 109 H (98-107) mmol/L Carbon Dioxide 21 L (22-30) mmol/L Anion Gap 7 (4-12) mmol/L BUN 53 H D (7-17) mg/dL Creatinine 1.88 H (0.7-1.0) mg/dL Estim Creat Clear Calc 19 ml/min Estimated GFR 26 L (59 - ) Glucose 100 (65-110) mg/dL Calcium 8.8 (8.4-10.2) mg/dL Total Bilirubin 0.7 (0.2-1.3) mg/dL AST 44 H (14-36) U/L ALT 27 (6-35) U/L Alkaline Phosphatase 108 (38-126) U/L Troponin I 0.410 H* 0.379 H* (0.000-0.034) ng/mL NT-Pro-B Natriuret Pep 05288 H (19.9-100) pg/mL Total Protein 6.9 (6.3-8.2) g/dL Albumin 3.8 (3.5-5.1) g/dL Influenza A (RT-PCR) Negative (Negative) Influenza B (RT-PCR) Negative (Negative) RSV (RT-PCR) Negative (Negative) SARS-CoV-2 RNA (RT-PCR) Positive A (Negative) Imaging Data Attestation: I personally reviewed and interpreted this imaging study as follows: My impression: Cardiomegaly on my independent interpretation chest x-ray but without demarcus pulmonary edema or pleural effusions Radiologist's impression: ITS Impressions Chest X-Ray 10/01/25 14:06 Impression: No acute cardiopulmonary abnormality. Chest CTA 10/01/25 15:20 IMPRESSION: 1. Pulmonary embolism subsegmental pulmonary artery right lower lobe, small thrombus burden. 2: Patchy faint groundglass opacities. Differential diagnosis includes pneumonia, early mild edema, hypersensitivity pneumonitis and nonspecific interstitial pneumonia. ECG Data EKG #1: Attestation: I personally reviewed and interpreted this ECG as follows: ECG completion date: 10/01/25 ECG completion time: 13:36 Interpretation: Normal sinus rhythm at a rate of 82 beats per minute. DC interval 152. QRS 88. QT/QTC 366/428. Poor R-wave progression across the precordial leads. T-wave inversion in 3 but upright in contiguous inferior leads. No other T-wave inversions. Trending towards Left axis deviation (equivocal QRS in Lead I; QRS is negative with dominant S wave in leads II, III, and aVF). Right ventricular conduction delay based on the appearance in V1 V2 and V3. EKG #2: Attestation: I personally reviewed and interpreted this ECG as follows: ECG completion date: 10/01/25 ECG completion time: 16:32 Interpretation: Normal sinus rhythm at a rate of 82 beats per minute. DC interval 140. QRS 94. QT/QTC 3 4/450. Poor R-wave progression across the precordial leads. T-wave inversion in 3 and flattening versus inversion in AVF but upright in contiguous inferior lead 2. T-wave flattening versus inversion in V3, possibly due to lead placement. No T-wave inversions in V4 V5 V6. Incomplete RBBB given QRS less [id number]; RSR' M-shaped pattern in V1-V3; wide, slurred S wave in lateral leads (I, aVL, V5-6) Discharge Plan Discharge Clinical Impression: Elevated AST (SGOT), Hypoxia, Acute kidney injury superimposed on CKD, Normocytic anemia, Thrombocytopenia, Elevated brain natriuretic peptide (BNP) level, Non-ST elevation ID (NSTEMI), COVID-19, Pulmonary embolism of right lower lobe, Ground glass opacity present on imaging of lung Patient Disposition: Still a Patient Condition: Serious Time of Disposition: 15:50
[2025-10-01 13:51] LABS: Hematocrit 30.5 % (37.0-47.0); Hemoglobin 9.7 g/dL (12.0-15.0); Mean Corpuscular HGB Conc 31.8 g/dl (32-36); Mean Corpuscular Hemoglobin 31.1 pg (26-34); Mean Corpuscular Volume 97.8 fl (80-100); Platelet Count Result 136 k/mm3 (150-375); Red Blood Count 3.12 M/mm3 (4.2-5.4); White Blood Count 9.0 K/mm3 (4.5-10.0)
[2025-10-01 14:03] LABS: Alanine Aminotransferase 27 U/L (6-35); Albumin Level 3.8 g/dL (3.5-5.1); Alkaline Phosphatase 108 U/L (38-126); Anion Gap 7 mmol/L (4-12); Aspartate Amino Transferase 44 U/L (14-36); Bilirubin,Total 0.7 mg/dL (0.2-1.3); Blood Urea Nitrogen 53 mg/dL (7-17); Calcium 8.8 mg/dL (8.4-10.2); Carbon Dioxide 21 mmol/L (22-30); Chloride 109 mmol/L (98-107); Estimated CRCL calculation 19 ml/min; Estimated Glomerular Filt Rate 26; Glucose 100 mg/dL (65-110); Potassium 4.2 mmol/L (3.4-5.0); Sodium 137 mmol/L (137-145); Total Protein 6.9 g/dL (6.3-8.2)
[2025-10-01 14:12] LABS: Band Neutrophils Percent 7 % (0-6); Lymphocytes Absolute Manual 0.45 K/mm3 (1.1-4.5); Lymphocytes Percent Manual 5 % (18-44); Monocytes Absolute Manual 0.36 K/mm3 (0.1-0.90); Monocytes Percent Manual 4 % (3-9); Neutrophils Absolute Manual 81.09 K/mm3 (1.3-6.7); Neutrophils Percent Manual 894 % (46-73); Polychromasia Occasional; Total Cells Counted 100
[2025-10-01 14:13] LABS: Anisocytosis Occasional; Burr Cells Occasional; Ovalocytes 1+; Schistocytes 1+; Target Cells Occasional
[2025-10-01 14:14] LABS: NT Pro B Type Natriuretic Pept 12500 pg/mL (19.9-100); Troponin I 0.410 ng/mL (0.000-0.034)
--- OUTSIDE RECORDS SUMMARY | 2025-10-01 14:18 | XMS_ITS | Clinical Summary ---
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 Active diclofenac sodium (VOLTAREN) 1 % gel Apply 2 g topically 4 (four) times daily. Active menthol-zinc oxide (CALMOSEPTINE) 0.44-20.6 % ointment Apply topically 3 (three) times daily. Active benzocaine-mentho l (CHLORASEPTIC) 6-10 MG Lozenge Take 1 lozenge by mouth. Active loperamide (IMODIUM) 2 MG capsule Take 1 capsule (2 mg total) by mouth every 6 (six) hours as needed for Diarrhea. 025 Active ondansetron (ZOFRAN) 4 MG tablet Take 1 tablet (4 mg total) by mouth every 4 (four) hours as needed for Nausea. Active calcium carbonate (TUMS) 500 MG chewable tabletIndications :Acid reflux Chew 2 tablets (1,000 mg total) by mouth every 4 (four) hours as needed for Heartburn. 360 tablet 3 025 Active Humidifier MiscIndications:C hronic respiratory failure with hypoxia (CMS/HCC HHS/HCC) 1 Device by Does not apply route daily. Oxygen humidifier 1 each 025 Active acetaminophen CR (TYLENOL) 650 MG Tab CR 8 hr tabletIndications :Neuropathy TAKE ONE TABLET BY MOUTH EVERY 6 HOURS NEEDED FOR MILD PAIN 28 tablet 025 Active FEROSUL 325 (65 Fe) MG tabletIndications :Neuropathy TAKE ONE TABLET BY MOUTH EVERY OTHER DAY 15 tablet 1 025 Active furosemide (LASIX) 20 MG tabletIndications :Chronic heart failure with preserved ejection fraction ([facility]),Essentia l (primary) hypertension TAKE ONE TABLET BY MOUTH DAILY ON TUESDAY, TUESDAY, AND TUESDAY 12 tablet 1 025 Active zolpidem (AMBIEN) 5 MG tabletIndications :Psychophysiologi artemio insomnia TAKE ONE TABLET BY MOUTH AT BEDTIME 30 tablet 5 025 Active lidocaine (LIDODERM) 5 %Indications:Neur opathy APPLY 1 PATCH TRANSDERMALLY DAILY AND REMOVE AFTER 12 HOURS 30 patch 4 025 Active FT ARTHRITIS PAIN 1 % gelIndications:Pa in of left upper extremity APPLY 2 GRAMS TOPICALLY FOUR TIMES A DAY NEEDED (APPLY TO LEFT ARM AND LEG) MAY KEEP AT BEDSIDE 20 g 2 025 Active metFORMIN (GLUCOPHAGE) 500 MG tabletIndications :Type 2 diabetes mellitus with other circulatory complication, without long-term current use of insulin ([facility]) Take 1 tablet (500 mg total) by mouth daily with breakfast. 30 tablet 5 025 Active Microlet Lancets MiscIndications:T ype 2 diabetes mellitus with other circulatory complication, without long-term current use of insulin ([facility]) 1 tablet by Does not apply route 2 (two) times a day. 200 each 3 025 Active pantoprazole EC (PROTONIX) 40 MG tabletIndications :Gastroesophageal reflux disease without esophagitis TAKE ONE TABLET BY MOUTH 2 TIMES A DAY BEFORE MEALS 60 tablet 11 025 Active busPIRone (BUSPAR) 30 MG tabletIndications :Anxiety TAKE ONE TABLET BY MOUTH 2 TIMES A DAY 60 tablet 2 025 Active Blood Glucose Monitoring Suppl (FREESTYLE LITE) w/Device KitIndications:Ty pe 2 diabetes mellitus with other circulatory complication, without long-term current use of insulin ([facility]) 1 Device by Does not apply route 2 (two) times daily. Use to check blood sugar 1 kit Active Glucose Blood (FREESTYLE LITE) test stripIndications: Type 2 diabetes mellitus with other circulatory complication, without long-term current use of insulin ([facility]) 1 strip by Other route 2 (two) times daily. Use as instructed to check blood sugars 200 strip 3 Active furosemide (LASIX) 20 MG tabletIndications :Chronic heart failure with preserved ejection fraction ([facility]) TAKE ONE TABLET BY MOUTH DAILY ON TUESDAY, TUESDAY, AND TUESDAY 36 tablet 4 Active pravastatin (PRAVACHOL) 40 MG tabletIndications :Mixed hyperlipidemia TAKE ONE TABLET BY MOUTH DAILY 30 tablet 4 Active leflunomide (ARAVA) 20 MG tabletIndications :Rheumatoid arthritis involving multiple sites with positive rheumatoid factor ([facility]) TAKE ONE TABLET BY MOUTH DAILY 30 tablet 4 Active FEROSUL 325 (65 Fe) MG tabletIndications :Iron deficiency TAKE ONE TABLET BY MOUTH EVERY OTHER DAY 15 tablet 4 Active cetirizine (ZYRTEC) 10 MG tabletIndications :Allergic rhinitis, unspecified seasonality, unspecified trigger TAKE ONE TABLET BY MOUTH DAILY 30 tablet 4 Active Multiple Vitamins-Minerals (THERA-M PLUS MV W/BETA-CAROT) TabIndications:Ir on deficiency TAKE ONE TABLET BY MOUTH DAILY 30 tablet 4 Active traZODone (DESYREL) 100 MG tabletIndications :Anxiety TAKE ONE TABLET BY MOUTH AT BEDTIME 30 tablet 1 Active DULoxetine (CYMBALTA) 60 MG capsuleIndication s:Anxiety TAKE ONE CAPSULE BY MOUTH DAILY 30 capsule 5 Active sulfamethoxazole- trimethoprim (BACTRIM) 400-80 MG tabletIndications :Recurrent UTI TAKE ONE TABLET BY MOUTH DAILY 30 tablet 4 Active riociguat (ADMEPAS) 2.5 MG tablet Take 1 tablet (2.5 mg total) by mouth 3 (three) times daily. 2025 Active valACYclovir (VALTREX) 500 MG tabletIndications :Recurrent cold sores Take 1 tablet (500 mg total) by mouth daily. 30 tablet 3 Active apixaban (ELIQUIS) 5 MG tabletIndications :Pulmonary hypertension (CMS/HCC HHS/HCC),Other chronic pulmonary embolism, unspecified whether acute cor pulmonale present (CMS/HCC HHS/HCC) Take 1 tablet (5 mg total) by mouth 2 (two) times daily. 60 tablet 3 Active hydrOXYzine (ATARAX) 10 MG tabletIndications :Anxiety Take 1 tablet (10 mg total) by mouth 3 (three) times daily as needed. FOR ANXIETY 60 tablet Active ADEMPAS 2 MG tablet Take 1 tablet (2 mg total) by mouth 3 (three) times daily. 2024 Discontinued(D ose adjustment) DULoxetine (CYMBALTA) 60 MG capsuleIndication s:Anxiety Take 1 capsule (60 mg total) by mouth daily. 30 capsule 5 2024 Discontinued sulfamethoxazole- trimethoprim (BACTRIM) 400-80 MG tabletIndications :Recurrent UTI TAKE ONE TABLET BY MOUTH DAILY 30 tablet 4 2024 Discontinued leflunomide (ARAVA) 20 MG tabletIndications :Chronic heart failure with preserved ejection fraction (CMS/HCC HHS/HCC),Pulmonar y hypertension (CMS/HCC HHS/HCC) TAKE ONE TABLET BY MOUTH DAILY 30 tablet 1 2024 Discontinued(D uplicate Med) hydrOXYzine (ATARAX) 10 MG tabletIndications :Anxiety TAKE ONE TABLET BY MOUTH THREE TIMES DAILY NEEDED FOR anxiety 60 tablet 2024 Discontinued warfarin (COUMADIN) 4 MG tabletIndications :Pulmonary emboli (CMS/HCC HHS/HCC) Take 1 tablet (4 mg total) by mouth daily. 30 tablet 1 025 2024 Discontinued(R eorder) hydrOXYzine (ATARAX) 10 MG tabletIndications :Anxiety TAKE ONE TABLET BY MOUTH THREE TIMES A DAY NEEDED FOR ANXIETY 60 tablet 2024 Discontinued(R eorder) warfarin (COUMADIN) 4 MG tabletIndications :Pulmonary emboli (CMS/HCC HHS/HCC) Take 1 tablet (4 mg total) by mouth daily. Take with 1 mg tablet to equal 5mg daily 90 tablet 1 025 2024 Discontinued warfarin (COUMADIN) 1 MG tabletIndications :Pulmonary emboli (CMS/HCC HHS/HCC) Take 1 tablet (1 mg total) by mouth daily. Take with 4 mg tablet to equal 5 mg 90 tablet 3 025 2024 Discontinued hydrOXYzine (ATARAX) 10 MG tabletIndications :Anxiety Take 1 tablet (10 mg total) by mouth 3 (three) times daily as needed. FOR ANXIETY 60 tablet 025 2024 Discontinued(R eorder) Active Problems Problem Noted Date Diagnosed Date Pulmonary emboli 03/26/2025 Severe malnutrition 01/16/2025 Overview (01/16/2025): Malnutrition Classification: Severe Malnutrition Severe malnutrition associated with acute disease or injury related to physiological causes increasing nutrient needs secondary to current illness as evidenced by unintended weight loss of 7.9% in 1 month and moderate fat loss noted in the following areas: orbital and buccal. Pulmonary hypertension 01/13/2025 TARIQ (acute kidney injury) 01/05/2025 Frequent falls 01/03/2025 History of pulmonary embolism 12/12/2024 Chronic respiratory failure 12/12/2024 Type 2 diabetes mellitus wit h circulatory disorder, without long-term current use of insulin 12/12/2024 Chronic heart failure with preserved ejection fr action 12/12/2024 Mixed hyperlipidemia 12/12/2024 Anxiety 12/12/2024 Other insomnia 12/12/2024 Rheumatoid arthritis involvi ng multiple sites with positive rheumatoid factor 12/12/2024 Neuropathy 12/12/2024 Essential (primary) hypertension Encounters Date Type Department Care Team Description 10/01/2025 Telephone [facility] Family & Internal Medicine [address] [phone] Scotty Diaz MD Cough 09/23/2025 1:40 PM SCALLOP BINDER Office Visit [facility] Family & Internal Medicine [address] [address] Scotty Diaz MD Follow Up; Diabetes; CHF; Hyperlipidemia; Hypertension; Anxiety; Other (Pulmonary embolism); UTI; Blisters (Pt c/o blisters on lips and inside of mouth. Pt had taken valcyclovir 500mg which did not help her blisters) 09/23/[address] [address] Scotty Diaz MD Information 09/23/2025 Travel 09/20/[address] [address] Scotty Diaz MD Refill Request 09/19/2025 Scan HEALTH INFO SR[facility]CS Scanned, [facility] (SCAN) 09/19/[address] [address] Scotty Diaz MD Anticoagulation 09/19/[address] [address] Scotty Diaz MD Information; Error 09/09/2025 Scan [facility] INFO SRVCS Scanned, [facility] (SCAN) 08/30/[address] [address] Scotty Diaz MD Anticoagulation 08/27/2025 Scan [facility] INFO SRVCS Scanned, [facility] 08/26/[address] [address] Scotty Diaz MD Blisters 08/20/[address] [address] Scotty Diaz MD Anticoagulation 08/17/2025 [facility] [address] [address] Vianney An NP Medication Problem (Medication problem. ) 08/13/2025 Telephone [facility] Family Internal [address] [address] Scotty Diaz MD Anticoagulation 08/08/2025 11:20 AM CDT Office Visit [facility] Internal [address] [address] Scotty Diaz MD Pain (Patient c/o germania horse like pain and numbness in B/L legs up into back. ); Edema (Patient c/o swelling in B/L feet); Urinary Incontinence (Pt has been experiencing urinary incontinence and increased confusion); Other (Pt's son is wanting to discuss POC for warfarin dosing. ) 08/08/2025 - 08/08/2025 11:59 PM CDT Hospital Encounter [facility] [address] [place] [address] Scotty Diaz MD Discharge Disposition: Home or Self Care (Routine Discharge) 08/08/2025 Travel 08/08/2025 Telephone [facility] Family Internal [address] [address] Scotty Diaz MD Anticoagulation 08/07/2025 Misc Documentation [facility] [address] [place] [address] Amber Carney MD 08/06/2025 Scan [employer] SRVCS Scanned, [facility] (SCAN) 08/02/2025 Telephone [facility] Internal [address] [address] Scotty Diaz MD Allied Health Visit 07/26/2025 Telephone [facility] Internal [address] [address] Scotty Diaz MD Results 07/23/2025 Scan [facility] HEALTH INFO SRVCS Scanned, [facility] (SCAN) 07/19/2025 Telephone [facility] Family & Internal [address] [address] Scotty Diaz MD Medication Request 07/18/2025 Telephone [facility] Family & Internal [address] [address] Scotty Diaz MD Anticoagulation 07/16/2025 Scan [facility] INFO SRVCS Scanned, [facility] (SCAN) 07/08/2025 Scan [facility] INFO SRVCS Scanned, [facility] 07/04/2025 Scan [facility] INFO [facility] Scanned, [facility] (SCAN) from Last 3 Months Immunizations Immunization Administration Dates Next Due Abrysvo Respiratory Syncytial Virus (RSV) 0.5 mL , PF 07/31/2025 Pneumococcal (Prevnar 7) 11/09/2013 Tdap (Generic) 11/22/2022 Zoster (Zostavax) 76909 Unt/0.65Ml 08/26/2014 Family History Medical History Relation Comments Hypertension Brother Hypertension Child Hypertension Daughter Hypertension Father Arthritis Mother Diabetes Mother Hypertension Mother Hypertension Sister Hypertension Son Relation Status Comments Brother Alive Child Alive Daughter Father Alive Mother Sister Alive Son Social History Tobacco Use Types Packs/Day Years Used Date Smoking Tobacco: Never Smokeless Tobacco: Never Tobacco Cessation:Counseling Given: No Alcohol Use Standard Drinks/Week Comments Never 0 (1 standard drink = 0.6 oz pur e alcohol) [facility] Utilities Answer Date Recorded In the past 12 months has e [employer], oil, or water [employer] threatened to shut off services in your [...] any time in the past 12 m [facility], were you homeless or living in a halfway (including now)? No 01/04/2025 Comments No Sex and Gender Information Value Date Recorded Sex Assigned at Female 12/12/2024 12:17 PM SCALLOP BINDER Legal Sex Female 9:27 AM CDT Gender Identity Female 12/12/2024 12:17 PM SCALLOP BINDER Sexual Orientation Not on file Last Filed Vital Signs Vital Sign Reading Time Taken Comments Blood Pressure 122/80 09/23/2025 2:12 PM SCALLOP BINDER Pulse 91 09/23/2025 2:12 PM SCALLOP BINDER Temperature 36.3 C (97.3 F) 09/23/2025 2:12 PM SCALLOP BINDER Respiratory Rate 16 09/23/2025 2:12 PM SCALLOP BINDER Oxygen Saturation 92% 09/23/2025 2:1 2 PM SCALLOP BINDER on 3L continous Inhaled Oxygen Concentration - - Weight 68.5 kg (151 lb) 09/23/2025 2:12 PM SCALLOP BINDER Height 167.6 cm (5' 6) 09/23/2025 2:12 PM SCALLOP BINDER Body Mass Index 24.37 09/23/2025 2:12 PM SCALLOP BINDER Plan of Treatment Upcoming Encounters Date Type Department Care Team (Late st Contact Info) Description 12/31/2025 1:20 PM SCALLOP BINDER Office Visit [facility] Family & Internal Medicine [address] [address] Scotty Diaz MD [address] [place] [address] Health Maintenance Due Date Last Done Comments ASCVD LDL 1942 Kidney Health Evaluation 1942 Diabetes: Retinopathy Eye Exam 1960 Pneumococcal Vaccine: 50+ Years (1 of 2 - PCV) 1961 11/09/2013 Annual Medicare Wellness Visit 2007 Zoster Vaccines (2 of 3) 10/21/2014 08/26/2014 Lipid Panel 04/28/2023 04/28/2022 Influenza Adult (#1) 2025 08/08/2024, 08/08/2022, 07/23/2021, Additional history exists COVID-19 Vaccine ( - season) 2026 07/31/2025, 09/15/2022, 09/11/2021, Additional history exists Hemoglobin A1C 03/23/2026 09/23/2025, 03/0 03/2025, 08/21/2023, Additional history exists DTaP, Tdap and Td Vaccines (2 - Td or Tdap) 11/22/2032 11/22/2022 Dexa Scan (General) Completed 05/09/2019, 05/09/2019, 05/17/2016, Additional history exists PHQ-2 (Physician [place]) Completed 12/12/2024 RSV Immunization or 60+ Years Completed 07/31/2025 Hepatitis A Vaccines Aged Out No long er eligible based on patient's age to complete this topic Meningococcal B Vaccine Aged Out No l onger eligible based on patient's age to complete this topic Meningococcal Vaccine Aged Out No shalom wilber eligible based on patient's age to complete this topic RSV Immunizations Under 20 Months Aged Out No longer eligible based on patient's age to complete this topic Procedures Procedure Name Priority Date/Time Associated Diagnosis Comments COLLECT.CAPILLARY (FNGR,HEEL,EAR) Routine 09/23/2025 2:12 PM SCALLOP BINDER Type 2 diabetes mellitus with other circulatory complication, without long-term current use of insulin ([facility]) HEMOGLOBIN, GLYCOSYLATED Routine 09/23/2025 Type 2 diabetes mellitus with other circulatory complication, without long-term current use of insulin ([facility]) URINALYSIS AUTO DIP Routine 09/23/2025 Acute cystitis without hematuria Urinary frequency OUTSIDE PT/INR (SCAN ORDER) 09/19/2025 PT/INR (OUTSIDE LAB) Routine 09/18/2025 OUTSIDE PT/INR (SCAN ORDER) 09/09/2025 PT/INR (OUTSIDE LAB) Routine 08/28/2025 PT/INR (OUTSIDE LAB) Routine 08/17/2025 PROTHROMBIN TIME, VENOUS Routine 08/10/2025 12:49 PM CDT CBC W/DIFF AUTOMATED Routine 08/10/2025 12:49 PM CDT Essential (primary) hypertension Chronic heart failure with preserved ejection fraction ([facility] HHS/HCC) BASIC METABOLIC PANEL Routine 08/10/2025 12:49 PM CDT Essential (primary) hypertension Chronic heart failure with preserved ejection fraction ([facility]/HCC HHS/HCC) HC CULTURE URINE W/COLONY CT Routine 08/08/2025 12:21 PM CDT Acute cystitis without hematuria Urinary incontinence, unspecified type Confusion URINALYSIS AUTO DIP Routine 08/08/2025 Urinary incontinence, unspecified type PT/INR (OUTSIDE LAB) Routine 08/07/2025 OUTSIDE PT/INR (SCAN ORDER) 08/06/2025 PT/INR (OUTSIDE LAB) Routine 07/30/2025 OUTSIDE PT/INR (SCAN ORDER) 07/23/2025 PT/INR (OUTSIDE LAB) Routine 07/23/2025 OUTSIDE PT/INR (SCAN ORDER) 07/16/2025 PT/INR (OUTSIDE LAB) Routine 07/16/2025 OUTSIDE PT/INR (SCAN ORDER) 07/04/2025 from Last 3 Months Results * (ABNORMAL) URINALYSIS AUTO DIP (09/23/2025) COLOR (U) YELLOW YELLOW [facility] TRANSPARENCY HAZY(A) CLEAR [facility] GLUCOSE (U) NEGATIVE NEGATIVE MG/DL [facility] BILIRUBIN (U) NEGATIVE NEGATIVE [facility] MG/DL (U) NEGATIVE NEGATIVE MG/DL [facility] SPECIFIC GRAVITY (U) 1.015 1.001 - 1.035 [facility] BLOOD (U) NEGATIVE NEGATIVE [facility] U PH 5.0 5.0 - 9.0 [facility] PROTEIN (U) NEGATIVE NEGATIVE mg/dL [facility] UROBILINOGEN 0.2 0.2 - 1.0 EU/dL = mg/dL [facility] NITRITES NEGATIVE NEGATIVE MG/DL [facility] LEUKOCYTES (U) NEGATIVE NEGATIVE [facility] URINE URINE SPECIMEN FROM URETHRA / Unknown 09/23/2025 Scotty Diaz MD URINE ORDERABLES Final Result Performing Organization Address City[facility]/ZIP Co de Phone Number [facility] [address] [place] [address], [place] * HEMOGLOBIN, GLYCOSYLATED (09/23/2025) HGB A1C 6.4 % [facility] BLOOD VENOUS BLOOD SPECIMEN / Unknown 09/23/2025 Scotty Diaz MD LABORATORY Final Result [facility] [address] [place] [address], [place] * OUTSIDE PT/INR (SCAN ORDER) (09/19/2025) Only the most recent of6 resultswithin the time period is included. 09/19/2025 [facility] Scanned SCANNING Final Resu lt * PT/INR (OUTSIDE LAB) (09/18/2025) Only the most recent of7 resultswithin the time period is included. Pathologist [facility] INR WHOLE BLOOD 2.70 Default History Genericprovider LAB-OUTSIDE/ABST RACTED Final Result * (ABNORMAL) PROTIME/INR, VENOUS (08/10/2025 12:49 PM CDT) INR 1.4(H) [facility] [place] Comment: Reference Range 0.9-1.1 Moderate-intensity Warfarin Therapy 2.0-3.0 Higher-intensity Warfarin Therapy 3.0-4.0 PROTIME 14.8(H) 9.0 - 11.5 [facility] Comment: For additional information, please refer to http://education.IndiaCollegeSearch/faq/UKN861 (This link is being provided for informational/ educational purposes only.) 08/10/2025 12:4 9 PM CDT 08/10/2025 12:49 PM CDT Narrative Resulting Agency Comment Performing Organization Information: Site ID: [id number] Name: [employer] [facility] Address: [address] [place] [address] Director: Renetta Kruger Scotty Diaz MD LABORATORY Final Result [facility] [place] [address] [place] [address], * (ABNORMAL) BASIC METABOLIC PANEL (08/10/2025 12:49 PM CDT) GLUCOSE 172(H) 65 - 99 mg/dL [facility] Comment: Fasting reference interval For someone without known diabetes, a glucose value >125 mg/dL indicates that they may have diabetes and this should be confirmed with a follow-up test. BUN 34(H) 7 - 25 mg/dL [facility] CREATININE S/P/B 1.40(H) 0.60 - 0.95 mg/dL [facility] GFR ESTIMATE 37(L) > OR = 60 mL/min/1.7 3m2 [facility] BUN CREATININE RATIO 24(H) 6 - 22 (calc) [facility] SODIUM S/P/B 136 135 - 146 mmol/L [facility] POTASSIUM S/P/B 4.6 3.5 - 5.3 mmol/L [facility] CHLORIDE S/P/B 104 98 - 110 mmol/L [facility] CO2 22 20 - 32 mmol/L [facility] CALCIUM S/P/B 9.2 8.6 - 10.4 mg/dL [facility] 08/10/2025 12:4 9 PM CDT 08/10/2025 12:49 PM CDT Narrative Resulting Agency Comment Performing Organization Information: Site ID: [id number] Name: [employer] [facility] Address: [address] [address] Director: Renetta Kruger MD Scotty Diaz MD LABORATORY Final Result [facility] [address] [place] [address], * (ABNORMAL) CBC W/DIFF AUTOMATED (08/10/2025 12:49 PM CDT) WBC 9.6 3.8 - 10.8 Thousand/ uL [facility] RBC 3.38(L) 3.80 - 5.10 Million/u L [facility] HGB 10.5(L) 11.7 - 15.5 g/dL [facility] HCT 33.9(L) 35.0 - 45.0 % [facility] MCV 100.3(H) 80.0 - 100.0 fL [facility] MCH 31.1 27.0 - 33.0 pg [facility] MCHC 31.0(L) 32.0 - 36.0 g/dL [facility] Comment: For adults, a slight decrease in the calculated MCHC value (in the range of 30 to 32 g/dL) is most likely not clinically significant; however, it should be interpreted with caution in correlation with other red cell parameters and the patient's clinical condition. RDW 12.6 11.0 - 15.0 % [facility] PLT 259 140 - 400 Thousand/ uL [facility] MPV 9.6 7.5 - 12.5 fL [facility] ABS. NEUTROPHILS 8,544(H) 1,500 - 7,800 cells/uL [facility] ABS. LYMPHOCYTES 442(L) 850 - 3,900 cells/uL [facility] ABS. MONOCYTES 365 200 - 950 cells/uL [facility] ABS. EOSINOPHILS 230 15 - 500 cells/uL [facility] ABS. BASOPHILS 19 0 - 200 cells/uL [facility] SEG NEUTROPHILS 89 % [facility] LYMPHOCYTES 4.6 % [facility] MONOCYTES 3.8 % [facility] EOSINOPHILS 2.4 % [facility] BASOPHILS 0.2 % [facility] 08/10/2025 12:4 9 PM CDT 08/10/2025 12:49 PM CDT Narrative Resulting Agency Comment Performing Organization Information: Site ID: [place] Name: [facility] Address: [address] [place] [address] Director: Renetta Kruger MD Scotty Diaz MD LABORATORY Final Result [facility] [address] [place] [address], * URINE BACTERIA CULTURE (08/08/2025 12:21 PM CDT) SPEC DESCRIPTION URINE VOIDED 08/08/2025 12:21 PM CDT [facility] SPECIAL REQUESTS NO SPECIAL REQUEST 08/08/2025 12:21 PM CDT [facility] CULTURE RESULT EQUAL OR >100,000 CFU/mL KLEBSIELLA PNEUMONIAE 08/11/2025 7:30 AM CDT [facility] URINE SPECIMEN FROM URETHRA / Unknown 08/08/2025 12:21 PM CDT 08/08/2025 8:56 PM CDT Narrative Organism Antibiotic Method Susceptibility Klebsiella pneumoniae AMPICILLIN CHINYERE (VITEK) Resistant Klebsiella pneumoniae AMOXICILLIN/CLAVULANIC A CHINYERE ( VARSHA) Sensitive Klebsiella pneumoniae AZTREONAM CHINYERE (VITEK) Sensitive Klebsiella pneumoniae CEFEPIME CHINYERE (VITEK) Sensitive Klebsiella pneumoniae CEFTRIAXONE CHINYERE (VITEK) Sensitive Klebsiella pneumoniae CEFAZOLIN CHINYERE (VITEK) Sensitive Klebsiella pneumoniae CIPROFLOXACIN CHINYERE (VITEK) Sensitive Klebsiella pneumoniae ESBL CHINYERE (VITEK) NEG: Sensitive Klebsiella pneumoniae ERTAPENEM CHINYERE (VITEK) Sensitive Klebsiella pneumoniae NITROFURANTOIN CHINYERE (VITEK) INTERMEDIATE: Intermediate Klebsiella pneumoniae GENTAMICIN CHINYERE (VITEK) Sensitive Klebsiella pneumoniae IMIPENEM CHINYERE (VITEK) Sensitive Klebsiella pneumoniae LEVOFLOXACIN CHINYERE (VITEK) Sensitive Klebsiella pneumoniae MEROPENEM CHINYERE (VITEK) Sensitive Klebsiella pneumoniae PIPERACILLIN/TAZOBACTAM CHINYERE (VIT EK) Sensitive Klebsiella pneumoniae TRIMETH-SULFAMETH. CHINYERE (VITEK) Resistant Klebsiella pneumoniae TETRACYCLINE CHINYERE (VITEK) Sensitive Scotty Diaz MD MICROBIOLOGY - GENERAL ORDERAB LES Final Result [facility] [address] [place] [address], [id number] * (ABNORMAL) URINALYSIS AUTO DIP (08/08/2025) COLOR (U) DARK YELLOW YELLOW [facility] TRANSPARENCY CLOUDY(A) CLEAR [facility] GLUCOSE (U) NEGATIVE NEGATIVE MG/DL [facility] BILIRUBIN (U) NEGATIVE NEGATIVE [facility] KETONES MG/DL (U) NEGATIVE NEGATIVE MG/DL [facility] SPECIFIC GRAVITY (U) 1.020 1.001 - 1.035 [facility] BLOOD (U) NEGATIVE NEGATIVE [facility] U PH 6.0 5.0 - 9.0 [facility] PROTEIN (U) 2+ (100)(A) NEGATIVE mg/dL [facility] UROBILINOGEN 0.2 0.2 - 1.0 EU/dL = mg/dL [facility] NITRITES POSITIVE(A) NEGATIVE MG/DL [facility] LEUKOCYTES (U) NEGATIVE NEGATIVE [facility] URINE SPECIMEN OBTAINED BY CLEAN CATCH PROCEDURE / Unknown 08/08/2025 us Scotty Diaz MD URINE ORDERABLES Final Result [facility] [address] [place] [address], from Last 3 Months Additional Health Concerns Infection Onset Date Last Indicated ESBL - Extended Spectrum Beta-lactamase 04/15/20 25 04/15/2025 Insurance [employer] Advance Directives Documents on File Type Date Recorded Patient 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
--- OUTSIDE RECORDS SUMMARY | 2025-10-01 14:18 | XMS_ITS | Clinical Summary ---
Author Organization [facility] [email or web address] Address [address] [place] [address] Care Team Providers Care Sort Worker Name Role Phone Robbi Cervantes MD Primary Care Provider Hieu Levin MD Unavailable [phone] Source Comments [facility] [email or web address],non-owned Affiliates and Associated Physician Practices is amultiple site organization consisting of ambulatory clinics and hospital sitesin [place], [place], [place] and [place]. This disclosure is being madepursuant to the Care Everywhere program and may not contain all information available regarding this patient. Last updated 18.[facility] [email or web address] Allergies No known active allergies Medications * This document contains information received from the source organization and may not represent a complete record from that organization. * Be aware that medications may not be up to date on this document. Alwaysverify current medications with the patient. omeprazole (PRILOSEC) [...] LURIA, FLUZONE TRIVALENT; 6MO+) (IIV3) 11/19/2018,08/26/2014 Covid Cashback Chintai primary monoval ent 12+ yr 0.3mL Purple [...] Date Recorded PHQ2 TOTAL SCORE 0 04/28/2022 [facility] [place] of Occupat ional Health - Occupational Stress [...] place to sleep or slept in a usp (including now)? No 03/18/2023 Comments No Sex and Gender Information Value Date Recorded Sex Assigned at Not on file Legal Sex Female 6:29 AM PUBLIC RELATIONS WRITER Gender Identity Not on file Sexual Orientation [...] WITH MONOFILAMENT 05/12/2021 DIABETES-HGB A1C 02/20/2024 08/21/2023, 04/28/2022 DEPRESSION SCREENING 10/31/2024 04/27/2022 DIABETES - URINE PROTEIN SCREENING 10/31/2024 DIABETES-SERUM CREATININE 01/12/20252023, 08/21/2023, 08/20/2023, Additional history exists COVID-19 VACCINE ( season) 2025 12/12/2020, 11/24/2020 INFLUENZA VACCINE (#1) 2025 , 08/19/2019, 11/19/2018, [...] this topic Medical Devices Implanted Type Area Ceramic Plater Device Identifier Shelf Expiration Date Model / Serial / Lot 2.5 X 20mm Headless Screw Implanted:Qty: 1 on 09/03/2020 by Serge Oswald MD at [facility] Left: Foot [employer] SV20 / / Screw 2mm .87mm 12mm Slf-Tap Slf Rm Implanted:Qty: 2 on 09/03/2020 by Serge Oswald MD at [facility] Left: Foot [employer] WS12 / / Explanted Type Area Ceramic Plater Device Identifier Shelf Expiration Date Model / Serial / Lot Plates And Screws Explanted:Qty: 1 on 09/03/2020 by Serge Oswald MD at [facility] Left: Foot UNKNOWN / / Procedures [...] mg/dL 01/13/2024 4:03 PM CDT [facility] Sodium 142 136 - 145 mmol/L 01/13/2024 4:03 PM CDT [facility] Potassium 4.4 3.5 - 5.1 mmol/L 01/13/2024 4:03 PM CDT [facility] Chloride 107 98 - 107 mmol/L 01/13/2024 4:03 PM CDT [facility] CO2 25 22 - 29 mmol/L 01/13/2024 4:03 PM CDT [facility] Calcium 9.4 8.4 - 10.4 mg/dL 01/13/2024 4:03 PM T [facility] Anion Gap 10 6 - 16 mmol/L 01/13/2024 4:03 PM T [facility] BUN 35(H) 7 - 26 mg/dL 01/13/2024 4:03 PM CDT [facility] Creatinine 1.21(H) 0.57 - 1.11 mg/dL 01/13/2024 4:03 PM T [facility] Alkaline Phosphatase 60 40 - 150 U/L 01/13/2024 4:03 PM T [facility] ALT 13 0 - 55 U/L 01/13/2024 4:03 PM T [facility] AST 19 5 - 34 U/L 01/13/2024 4:03 PM [facility] Protein Total 6.7 6.4 - 8.3 gm/dL 01/13/2024 4:03 PM [facility] Albumin 3.4 3.4 - 5.0 gm/dL 01/13/2024 4:03 PM T [facility] Bilirubin Total 0.6 0.2 - 1.2 mg/dL 01/13/2024 4:03 PM [facility] eGFR by CKD-EPI 45(L) >=90 mL/min/1.7 3 m2 01/13/2024 4:03 PM T [facility] Blood BLOOD SPECIMEN / Unknown Venipuncture / Unknown 01/13/2024 3:37 PM CDT 01/13/2024 3:42 PM CDT Sharyn Giordano DO LAB - CHEMISTRY ORDERABLES Fi nal Result Performing Organization Address [facility]/ZIP Co de Phone Number [facility] [address] [place] [address] * (ABNORMAL) HEMOGLOBIN A1C (08/21/2023 3:36 AM CDT) Hemoglobin A1c 6.2(H) <5.7 % 08/21/2023 5:41 AM CDT [facility] Estimated Average Glucose 131 mg/dL 08/21/2023 5:41 AM CDT [facility] Blood BLOOD SPECIMEN / Unknown Lab Venipuncture / Unknown 08/21/2023 3:36 AM CDT 08/21/2023 3:56 AM CDT Narrative [facility] - 08/21/2023 5:41 AM CDT HbA1c [...] - CHEMISTRY ORDERABLES Final Result [facility] [address] [place] [address] * DEXA BONE DENSITY 2 SITES (05/17/2016 [...] Most Recently Relevant to Health Maintenance Insurance [facility] MEDICARE [employer] MEDICARE ADV PPO Advance Directives * Full Code (Latest Code Status on File) Date Activated Date Inactivated Comments 08/21/2023 2:13 AM 08/29/2023 3:24 PM * Full Code Date Activated Date Inactivated Comments 03/16/2023 10:18 PM 03/22/2023 7:20 PM * Full Code Date Activated Date Inactivated Comments 04/28/2022 1:43 AM 05/05/2022 6:59 PM Care Teams Sort Worker Relationship Specialty Start Date End Date Robbi Cervantes MD [address] [place] [phone] PCP - General Internal Medicine 10/03/14 Hieu Levin MD [address] [facility] [address] [place] [address] Cardiovascular Disease 05/12/21
--- OUTSIDE RECORDS SUMMARY | 2025-10-01 14:18 | XMS_ITS | Encounter Summary ---
Author Organization [facility] Address [address] [facility] [address] Care Team Providers Care Environmental Health And Safety Manager Name Role Phone Robbi Cervantes MD Primary Care Provider [phone] Hieu Levin MD Unavailable [phone] Reason for Visit * Reason Comments Refill Request Encounter Details Date Type Department Care Team (Late st Contact Info) Description 02/19/2019 Refill [facility] PHYS STANDARD [address] [place] [address] [place] [address] [address] Refill Request Social History Tobacco Use Types Packs/Day Years Used Date Smoking Tobacco: Never Smokeless Tobacco: Never Alcohol Use Standard Drinks/Week Comments No 0 (1 standard drink = 0.6 oz pur e alcohol) Comments Unknown Sex and Gender Information Value Date Recorded Sex Assigned at Not on file Legal Sex Female 6:29 AM 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
--- OUTSIDE RECORDS SUMMARY | 2025-10-01 14:18 | XMS_ITS | Encounter Summary ---
Author Organization [facility] Address [address] [place] [address] Care Team Providers Care Jai Alai Player Name Role Phone Scotty Diaz MD Primary Care Provider [phone] Reason for Visit * Reason Onset Date Comments Cough 10/01/2025 Encounter Details Date Type Department Care Team (Late st Contact Info) Description 10/01/2025 Telephone [facility] Family & Internal Medicine [facility] [address] [place] [address] Scotty Diaz MD [facility] [place] [address] Cough Social History Tobacco Use Types Packs/Day Years Used Date Smoking Tobacco: Never Smokeless Tobacco: Never Alcohol Use Standard Drinks/Week Comments Never 0 (1 standard drink = 0.6 oz pur e alcohol) [facility] Utilities Answer Date Recorded In the past 12 months has [facility] [employer] gas, oil, or water [employer] threatened to shut off services in your [...] any time in the past 12 m [facility], were you homeless or living in a nursing home (including now)? No 01/04/2025 Comments No Sex and Gender Information Value Date Recorded Sex Assigned at Female 12/12/2024 12:17 PM IS/IT PROJECT MANAGER Legal Sex Female 9:27 AM CDT Gender Identity Female 12/12/2024 12:17 PM IS/IT PROJECT MANAGER Sexual Orientation Not on file documented [...] Progress Notes * Caprice Obregon MA - 10/01/2025 11:33 AM CST Spoke to Camila at [facility]. They do have influenza test, but the results take 24-48 hours to get back. This JOYCE advised that Tasneem would like pt to go to ER/UC for further evaluation d/t chronic conditions and symptoms. Camila v/u. /IT PROJECT MANAGER * ARTEM Lindquist - 10/01/2025 11:25 AM CST With an increase in falls and confusion and weakness, she might need further testing influenza and ua- does she need to go somewhere to be seen? /IT PROJECT MANAGER * Caprice Obregon MA - 10/01/2025 11:20 AM CST Nurse from [facility] called to report productive cough, wheezing, diarrhea, increasein falls/confusion/weakness. Tested for COVID yesterday and was NEG. O2: 94%, T: 99.1, otherwise vitals are remarkable. Nurse is requesting an order for cold/flu medication (can not give OTC meds with orders from provider) and UA. Ph. [phone] Fx. [phone] /IT PROJECT MANAGER documented in this encounter Plan of Treatment Upcoming Encounters Date Type Department Care Team (Late st Contact Info) Description 12/31/2025 1:20 PM IS/IT PROJECT MANAGER Office Visit [facility] Family & Internal Medicine [address] [address] Scotty Diaz MD [address] [place] [address] documented as of this encounter Visit Diagnoses Not on filedocumented in this encounter Additional Health Concerns Infection Onset Date Last Indicated Resolved Time ESBL - Extended Spectrum Beta-lactamase 04/15/2025 0 04/15/2025 Assessment Noted Time PHQ-9 Depression Total Score: 13 025 12:14 PM IS/IT PROJECT MANAGER documented as of this encounter Care Teams Jai Alai Player Relationship Specialty Start Date End Date Scotty Diaz MD [address] [place] [address] PCP - General INTERNAL MEDICINE 12/12/24 documented as of this encounter
--- OUTSIDE RECORDS SUMMARY | 2025-10-01 14:18 | XMS_ITS | Clinical Summary ---
Author Organization [facility] Address [address] [place] [address] Phone Care Team Providers Care Process Safety Engineering Technologist Name Role Phone Robbi Cervantes MD Primary Care Provider Allergies Active Allergy Reactions Criticality Noted Date [...] on file Legal Sex Female 9:25 AM [facility] Gender Identity Not on file Sexual Orientation Not on file Last Filed Vital Signs Vital Sign Reading Time Taken Comments Blood Pressure 126/64 11/05/2019 2:24 PM ACCOUNT DEVELOPER Pulse 60 11/05/2019 2:24 PM ACCOUNT DEVELOPER Temperature 35.9 C (96.6 F) 04/30/2019 3:08 PM CDT Respiratory Rate - - Oxygen Saturation - - Inhaled Oxygen Concentration - - Weight 94.3 kg (208 lb) 11/05/2019 2:24 PM ACCOUNT DEVELOPER Height 162.6 cm (5' 4) 11/05/2019 2:24 PM ACCOUNT DEVELOPER Body Mass Index 35.7 11/05/2019 2:24 PM ACCOUNT DEVELOPER Plan of Treatment Health Maintenance Due Date Last Done Comments Pneumococcal PPSV23/PCV13 65 + Years / Low and Medium Risk (1 of 2 - PCV) 1992 Influenza Vaccine (#1) 2025 11/19/2018 Insurance [facility] MEDICARE HMO Care Teams Process Safety Engineering Technologist Relationship Specialty Start Date End Date Robbi Cervantes MD [address] [phone] PCP - General Internal Medicine 04/30/19
--- OUTSIDE RECORDS SUMMARY | 2025-10-01 14:18 | XMS_ITS | Clinical Summary ---
Author Organization [facility] [address] [facility] Address [address] [place] [address] Care Team Providers Care Floor Framer Name Role Phone Robbi Cervantes MD Primary Care Provider [phone] Social History Tobacco Use Types Packs/Day Years [...] 2017 INFLUENZA VACCINE (#1) 2025 Care Teams Floor Framer Relationship Specialty Start Date End Date Robbi Cervantes MD [address] [facility] [address] [place] [address] PCP - General Internal Medicine 04/05/22
[2025-10-01 14:26] LABS: Influenza A QL RT-PCR Negative (Negative); Influenza B QL RT-PCR Negative (Negative); RSV RNA, RT-PCR Negative (Negative); SARS-CoV-2 RNA PCR Positive (Negative)
[2025-10-01] MEDS: ASPIRIN 81 MG CHEWABLE TABLET 324 MG PO (14:30)
[2025-10-01] MEDS: SODIUM CHLORIDE 0.9% IV 500 ML 999 ML IV CONT (14:30)
[2025-10-01] MEDS: dexAMETHasone SOD PHOS INJ 10 MG/ML 1 ML VIAL IV PUSH (15:16)
--- NOTE | 2025-10-01 15:29 | PC.NURSE ---
Rn spoke with staff at pt [place], informed them pt has additional lab work ordered and gave update regarding pt status.
--- NOTE | 2025-10-01 16:02 | P.HP_ITS ---
H&P: HPI History of Present Illness Date/Time: 10/01/25 16:02 Chief Complaint: Bloody sputum Narrative: 85-year-old with past medical history of pulmonary embolism, diabetes, pancreatitis, hypertension, and congestive heart failure, chronic respiratory failure on 3 L nasal cannula at home. Patient states that she has been come extremely weak, tired and short of breath over the last 3 days. Patient denies fevers chills. Patient gives limited details. According to the son patient has a history of undissolve multiple PEs and sees a annealer helper at [place] will request records. Lab work shows hemoglobin of 9.7 chloride of 109, carbon dioxide of 21, BUN of 53, creatinine of 1.88 with baseline being around 1.5, GFR 26, AST of 44, ALT of 27, troponin of 0.410, proBNP 20504, influenza A/B and RSV negative, COVID positive. CT shows Pulmonary embolism subsegmental pulmonary artery right lower lobe, small thrombus burden and Patchy faint groundglass opacities. Patient be started on heparin drip for pulmonary embolism. She has been on her Eliquis for over a year and her previous embolism should have dissipated by now. EKG shows sinus rhythm. Review of Systems Review of Systems: 12 systems were reviewed and are negativ e except for as per HPI. [facility] Past Medical History Medical History (Updated 10/01/25 @ 16:50 by Windy Anguiano MD) Pulmonary hypertension Hypertension 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 Lumbar stenosis Pancreatitis CHF (congestive heart failure) Pulmonary embolism Chronic respiratory failure Elevated liver enzymes Upper abdominal pain Ventricular bigeminy Insomnia Degenerative lumbar disc Family History Family History Sibling Dementia Father Acute myocardial infarction Mother Diabetes mellitus Social History Social History Social History: POLST signed 12/12/24 reports Yes CPR with selective treatment Smoking status: Never smoker Second hand tobacco smoke exposure: Yes Alcohol intake: never Substance use: never Substance use type: does not use Lack of Transportation: No Lack of Food: Never True Current Housing: I Have Housing Concerned About Future Housing: No Difficulty Paying Gas/Electric Bills: No Difficulty Paying for Meds: No Currently Unemployed: No Education: High School Diploma/GED Difficulty w/ Childcare or Family Care: No Living arrangements: assisted living Additional living arrangements comments: [facility] Spiritual care concerns: No Meds Home Medications and Allergies Home Medications ?Medication ?Instructions ?Recorded ?Confirmed ?Type duloxetine 60 mg capsule,delayed 60 mg PO DAILY 10/01/25 History release leflunomide 20 mg tablet 20 mg PO DAILY 03/20/24 12/12/25 History metformin 500 mg tablet 500 mg PO DAILY@0800 4 10/01/25 History metoprolol succinate 25 mg 25 mg PO HS 03/20/24 History tablet,extended release 24 hr pravastatin 40 mg tablet 40 mg PO HS 03/20/24 5 History trazodone 100 mg tablet 100 mg PO HS 03/20/24 History nitrofurantoin 100 mg PO Q12H 3 days #6 cap s 03/24/24 10/01/25 Rx monohydrate/macrocrystals 100 mg capsule (Macrobid) clonazepam 0.5 mg tablet See Rx Instructions .Route . COMPLEX 08/02/24 10/01/25 History fexofenadine 180 mg tablet 180 mg PO DAILY 08/02/24 History losartan 100 mg tablet 100 mg PO DAILY 08/02/2412/25 History amlodipine 5 mg tablet (Norvasc) 5 mg PO DAILY #60 tab s 08/08/24 10/01/25 Rx amoxicillin 875 mg-potassium 1 tablet PO Q12H #6 tabs 08/08/24 10/01/25 Rx clavulanate 125 mg tablet methocarbamol 750 mg tablet 750 mg PO TID #30 tabs 09/2410/01/25 Rx acetaminophen 500 mg capsule 1,000 mg (2 x 500 mg) PO Q6H PRN 05/20/25 10/01/25 Rx pain #30 caps diclofenac sodium 1 % topical gel 2 g topical QID #50 grams 05/20/25 10/01/25 Rx lidocaine 4 % topical patch 1 patch topical DAILY PRN pain #10 05/20/25 10/01/25 Rx ea oxycodone 5 mg capsule 5 mg PO Q8H PRN pain 5 days #7 caps 05/20/25 10/01/25 Rx apixaban 2.5 mg tablet (Eliquis) 5 mg PO Q12HR 5 10/01/25 History buspirone 30 mg tablet 30 mg PO BID 10/01/25 History cetirizine 10 mg tablet 10 mg PO HS 10/01/25 5 History ferrous sulfate 325 mg (65 mg 325 mg PO .COMPLEX 10/0110/01/25 History iron) tablet furosemide 20 mg tablet 20 mg PO .COMPLEX 10/01/25 1 12/02/24 History hydroxyzine HCl 10 mg tablet 10 mg PO TID PRN anxiety 10/01/25 10/01/25 History loperamide 2 mg capsule 2 mg PO Q6H PRN loose stool 10/01/25 10/01/25 History menthol 0.44 %-zinc oxide 20.6 % 1 applic topical TID 10/01/25 10/01/25 History topical ointment (Calmoseptine) pantoprazole 40 mg tablet,delayed 40 mg PO Q12H 10/01/25 History release riociguat 2.5 mg tablet (Adempas) 2.5 mg PO TID 10/01/25 History sennosides 8.6 mg tablet (senna) 8.6 mg PO BID PRN con stipation 10/01/25 10/01/25 History sulfamethoxazole 400 1 tablet PO HS 10/01/25 12/12/25 History mg-trimethoprim 80 mg tablet valacyclovir 500 mg tablet 500 mg PO HS 10/01/2510/01 History zolpidem 5 mg tablet 5 mg PO HS 10/01/25 10/01/25 History Allergies Allergy/AdvReac Type Severity Reaction Status Date / Time adhesive tape Allergy Mild Rash Verified 10/01/25 22:08 Vital Signs Vital Signs - 24 hr 10/01/25 13:10 10/01/25 13:32 10/01/25 14:30 Temperature 97.5 F L Pulse Rate 90 90 Respiratory Rate 15 21 H Blood Pressure 102/83 97/61 L Pulse Oximetry 86 L 96 95 Oxygen Delivery Nasal Cannula Nasal Cannula Oxygen Flow Rate 3 6 10/01/25 15:19 Temperature Pulse Rate 88 Respiratory Rate 18 Blood Pressure 108/67 Pulse Oximetry 95 Oxygen Delivery Oxygen Flow Rate Exam Narrative: General: Ill-appearing HEENT: normocephalic, atraumatic. Mucous membranes moist. EOMI, PERRLA, bilateral sclera anicteric, no conjunctival injection. Neck supple without JVD, lymphadenopathy, or bruit. Respiratory: Diminished Cardiovascular: Regular rate and rhythm, normal S1-S2. No murmurs, rubs, or clicks. PMI is nondisplaced, capillary refill less than 3 second. Abdomen: Soft, round, no pulsatile masses, nondistended and nontender. No rebound, no guarding. Bowel sounds present to all four quadrants. No high pitch or tinkling sounds, resonant to percussion. Extremities: No cyanosis, clubbing, or edema present. Pulses are palpable 2/2. Active ROM to all four extremities. Neuro: Alert and orientated x 4. PERRLA. Cranial nerves 2-12 intact without focal deficit. Skin: Warm, dry, and intact, without rash, erythema, or lesion. Psych: pleasant, cooperative, normal speech, normal affect, no hallucinations, no dysarthia Results Labs Labs: Short CBC 10/01/25 Range/Units 13:42 WBC 9.0 (4.5-10.0) K/mm3 Hgb 9.7 L (12.0-15.0) g/dL Hct 30.5 L (37.0-47.0) % Plt Count 136 L D (150-375) k/mm3 BMP 10/01/25 13:42 Sodium 137 Potassium 4.2 Chloride 109 H Carbon Dioxide 21 L BUN 53 H D Creatinine 1.88 H Glucose 100 Calcium 8.8 Cardiac Enzymes 10/01/25 Range/Units 13:42 Troponin I 0.410 H* (0.000-0.034) ng/mL Liver Function 10/01/25 Range/Units 13:42 Total Bilirubin 0.7 (0.2-1.3) mg/dL AST 44 H (14-36) U/L ALT 27 (6-35) U/L Alkaline Phosphatase 108 (38-126) U/L Albumin 3.8 (3.5-5.1) g/dL Quality VTE Prophylaxis VTE prophylaxis: mechanical ordered and pharmacologic ordered Assessment and Plan Assessment and plan (1) COVID-19: Code(s): U07.1 - COVID-19 Status: Acute Assessment and Plan: dexamethasone times 10 days Remdesivir x5 Guaifenesin Wean oxygen as able (2) Pulmonary embolism of right lower lobe: Code(s): I26.99 - Other pulmonary embolism without acute cor pulmonale Status: Acute Assessment and Plan: According to family she has a history of un dissolvable PEs and sees a annealer helper at [place] [facility] requested Heparin drip per protocol Consult hematology for further management (3) Elevated troponin: Code(s): R79.89 - Other specified abnormal findings of blood chemistry Status: Acute Assessment and Plan: Heparin drip for pulmonary embolism Troponins trending down likely due to hypoxia (4) Diabetes: Code(s): E11.9 - Type 2 diabetes mellitus without complications Status: Chronic Assessment and Plan: Low-dose sliding scale Diabetic diet Accu-Pelon a.cApurva HS Hold home metformin (5) Acute kidney injury superimposed on CKD: Code(s): N17.9 - Acute kidney failure, unspecified; N18.9 - Chronic kidney disease, unspecified Status: Acute Assessment and Plan: Gentle IV hydration (6) CHF (congestive heart failure): Code(s): I50.9 - Heart failure, unspecified Status: Acute Assessment and Plan: Monitor for fluid overload to while receiving IV fluids Patient not on diuretics at home (7) Hypertension: Code(s): I10 - Essential (primary) hypertension Status: Acute Assessment and Plan: Patient states she was taken off her hypertensive medications Monitor Hospitalist MIPS Advance Care Plan I have confirmed that the patient's Advanced Care Plan is present, code status is documented, or surrogate decision maker is listed in patient medical record.: Yes Medication Reconciliation I have utilized all available resources to obtain, update and review the patients current medications (includes all prescriptions, OTC, herbals, cannabis, and nutritional supplements).: Yes
[2025-10-01 16:19] LABS: INR 1.9; Prothrombin Time 21.2 Seconds (11.1-14.7)
[2025-10-01 16:20] LABS: Partial Thromboplastin Time 58.6 Seconds (22.3-36.8)
--- NOTE | 2025-10-01 16:26 | ECG_ITS ---
Test Date: 2025-10-01 16:32:00 Measurements Intervals [place] Rate: 82 P: 57 CT: 140 QRS: 238 QRSD: 94 T: -11 QT: 384 QTc: 450 Interpretive Statements SINUS RHYTHM POSSIBLE LEFT ATRIAL ENLARGEMENT INCOMPLETE RIGHT BUNDLE BRANCH BLOCK ANTEROSEPTAL INFARCT, AGE INDETERMINATE BORDERLINE T WAVE ABNORMALITY- INFERIOR LEADS ABNORMAL ECG Compared to ECG 10/01/2025 13:36:51 NO SIGNIFICANT CHANGE Electronically Signed On 10-01-2025 20:08:21 TAPER/FINISHER by Facundo Sam D.O.
[2025-10-01] MEDS: HEPARIN SOD/D5W 100 UNITS/ML 25,000 UNITS/250 ML BAG 12 UNITS IV CONT (16:37)
--- NOTE | 2025-10-01 17:16 | PC.NURSE ---
RN spoke with Alessandra BUTT at [facility] and informed her that pt is to be admitted to this facility
[2025-10-01 17:23] LABS: Troponin I 0.379 ng/mL (0.000-0.034)
[2025-10-01] MEDS: DOCUSATE SODIUM 100 MG CAPSULE PO (17:43)
[2025-10-01] MEDS: REMDESIVIR 200 MG/NS 250 ML 200 MG/250 ML BAG 250 MG IVPB (17:45)
--- NOTE | 2025-10-01 19:23 | PC.NURSE ---
Report given to Gayathri BUTT, all questions answered
[2025-10-01] MEDS: IPRATROPIUM 0.5 MG/ALBUTEROL SULFATE 2.5 MG (BASE) AMPUL.NEB 3 ML INHALATION ×2 (19:31→23:12)
--- NOTE | 2025-10-01 20:51 | WPCEDHO ---
ED Hand Off Checklist All vitals saved: Yes IV Site documented: Yes All med administrations documented: No, breathing treatment ordered. Triage Note Triage Note Pt to ED from [facility] 10/01/25 13:10 Living via [facility] co URI symptoms; including productive cough w/ yellow/green sputum, nausea, diarrhea, and SOB with exertion. Pt denies SOB at this time. Pt states my chest hurts but that's my costochondritis. Pt wears 3L O2 NC at all times, reports hx CHF & PE Allergies No Known Allergies Allergy (Verified 10/01/25 13:37) Family History (Last Reviewed 08/02/24 @ 00:45 by Kiersten Shah, RN) Sibling Dementia Father Acute myocardial infarction Mother Diabetes mellitus Active Medications including assessments/comments Docusate Sodium (Docusate Sodium 100 Mg Capsule) 100 mg PO BID ANAHI Last Admin: 10/01/25 17:43 Dose: 100 mg Documented By: BEATRICE Heparin Sodium/Dextrose (Heparin Sodium/D5w 100 Units/Ml) 25,000 units in 250 mls @ 12 mls/hr IV CONT .[id number] ANAHI; Protocol Last Admin: 10/01/25 16:37 Dose: 1,200 units/hr, 12 mls/hr Documented By: DURAN Infusion/Titration Document 10/01/25 16:37 KJT (Rec: 10/01/25 16:38 KJT [id number]) Intake IV Site Peripheral Access Right Hand Container Volume 250 Waste Amount 0 Dosing Dose Rate 1,200 Infusion Rate 12 Increase/Decrease Started Elapsed Time Elapsed Time ( 0m minutes) Heparin Infusion Assessment Document 10/01/25 16:37 KJT (Rec: 10/01/25 16:38 KJT [id number]) Heparin Infusion Assessment Heparin Infusion Initiated Action Insulin Aspart (Insulin Aspart (*Bkc) 100 Units/Ml) 2 - 5 units SUB-Q TIDWM ANAHI; Protocol Last Admin: 10/01/25 17:51 Dose: Not Given Documented By: BEATRICE Non-Admin Reason: No Dose Required MAR Blood Glucose Document 10/01/25 17:51 BEATRICE (Rec: 10/01/25 17:51 BEATRICE [id number]) Bedside Glucose Verified Glucose Results Yes Verified Administered/Completed Medications Discontinued Medications Albuterol/Ipratropium (Ipratropium 0.5 Mg/Albuterol Sulfate 2.5 Mg (Base) Ampul.Neb 3 Ml) 3 ml INHALATION ONCE STA Stop: 10/01/25 19:06 Last Admin: 10/01/25 19:31 Dose: 3 ml Documented By: BECCA Aspirin (Aspirin 81 Mg Chewable Tablet) 324 mg PO ONCE STA Stop: 10/01/25 14:20 Last Admin: 10/01/25 14:30 Dose: 324 mg Documented By: BEATRICE Dexamethasone Sodium Phosphate (Dexamethasone Sod Phos Inj 10 Mg/Ml 1 Ml Vial) 10 mg IV PUSH ONCE STA Stop: 10/01/25 14:33 Last Admin: 10/01/25 15:16 Dose: 10 mg Documented By: BEATRICE Heparin Sodium (Porcine) (Heparin Sodium 5,000 Units/Ml Vial) 5,000 units 80 units/kg (5500 units) IV PUSH ONCE ONE Stop: 10/01/25 15:56 Last Admin: 10/01/25 16:35 Dose: 5,000 units Documented By: DURAN Co-signed By: BEATRICE Sodium Chloride (Normal Saline Iv) 500 mls @ 999 mls/hr IV CONT .Q31M STA Stop: 10/01/25 14:39 Last Infusion: 10/01/25 15:30 Dose: Infused Documented By: Admin: 10/01/25 14:30 Dose: 999 mls/hr Documented By: BEATRICE Remdesivir () 200 mg in 250 mls @ 250 mls/hr IVPB ONCE ONE Stop: 10/01/25 17:59 Last Infusion: 10/01/25 19:12 Dose: Infused Documented By: Admin: 10/01/25 17:45 Dose: 250 mls/hr Documented By: BEATRICE Notes 10/01/25 19:23 Nurse Note by Marge Busby Report given to Gayathri BUTT, all questions answered Initialized on 10/01/25 19:23 - END OF NOTE 10/01/25 17:16 Nurse Note by Marge Busby RN spoke with Alessandra BUTT at [facility] and informed her that pt is to be admitted to this facility Initialized on 10/01/25 17:16 - END OF NOTE 10/01/25 15:29 Nurse Note by Marge Busby Rn spoke with staff at [facility], informed them pt has additional lab work ordered and gave update regarding pt status. Initialized on 10/01/25 15:29 - END OF NOTE Interventions/Assessments IV / Saline Lock, Insert Start: 10/01/25 13:07 Freq: Status: Active Protocol: Document 10/01/25 16:42 KED (Rec: 10/01/25 16:43 KED [id number]) IV Assessment Peripheral Access Right Hand IV Catheter Access Initiated IV Insertion Date 10/01/25 IV Insertion Time 16:43 Catheter Gauge 20 IV Insertion 1 Attempts Ultrasound Used for No Placement IV Site Assessment WNL IV Care and WNL Maintenance PA: Cardiovascular Assessment Start: 10/01/25 13:37 Freq: Status: Active Protocol: Document 10/01/25 13:37 KED (Rec: 10/01/25 13:38 KED [id number]) Cardiovascular Assessment Cardiovascular Chest Pain,Dyspnea Symptoms Chest Pain Assessment Chest Pain Intensity 5 Chest Pain Location Midsternal Description and Sharp Symptoms Chest Pain Duration > 6 Hours Comments pt states it's just my costochondritis PA: Respiratory Assessment Start: 10/01/25 13:07 Freq: Status: Active Protocol: Document 10/01/25 13:32 KED (Rec: 10/01/25 13:37 KED [id number]) Oxygen Delivery Oxygen Delivery Nasal Cannula Oxygen Flow Rate 6 Pulse Oximetry (90- 96 100) Respiratory Assessment Symptoms Congestion,Cough,Shortness of Breath With Exertion Effort Normal Pattern Regular Depth Normal Chest Expansion Symmetrical Adult Capillary Normal/Less than 2 Seconds Refill Anterior Bilateral Throughout Phase Inspiratory & Expiratory Lung Sounds Clear Cough Description Productive Cough Frequency Intermittent Sputum Production/ Spontaneous Expectoration Suction Method Sputum Amount Small Sputum Color Green,Yellow Last Vital Signs Temperature 97.5 F L 10/01/25 13:10 Pulse Rate 93 10/01/25 20:30 Respiratory Rate 16 10/01/25 20:30 Pulse Oximetry 91 10/01/25 20:30 Blood Pressure 111/66 10/01/25 20:30 Blood Pressure Mean 81 10/01/25 20:30 Oxygen Delivery Nasal Cannula 10/01/25 19:32 Oxygen Flow Rate 6 10/01/25 19:32 Weight 71.3 kg 10/01/25 13:10 Last Result - Abnormals Only RBC 3.12 M/mm3 (4.2-5.4) L 10/01/25 13:42 Hgb 9.7 g/dL (12.0-15.0) L 10/01/25 13:42 Hct 30.5 % (37.0-47.0) L 10/01/25 13:42 MCHC 31.8 g/dl (32-36) L 10/01/25 13:42 RDW 17.0 % (11.5-14.5) H 10/01/25 13:42 Plt Count 136 k/mm3 (150-375) L D 10/01/25 13:42 Neutrophils % (Manual) 894 % (46-73) H 10/01/25 13:42 Band Neutrophils % 7 % (0-6) H 10/01/25 13:42 Lymphocytes % (Manual) 5 % (18-44) L 10/01/25 13:42 Abs Neuts (Manual) 81.09 K/mm3 (1.3-6.7) H 10/01/25 13:42 Abs Lymphs (Manual) 0.45 K/mm3 (1.1-4.5) L 10/01/25 13:42 PT 21.2 Seconds (11.1-14.7) H 10/01/25 13:42 APTT 58.6 Seconds (22.3-36.8) H 10/01/25 13:42 D-Dimer 0.82 ug/mL (<0.48) H 10/01/25 13:42 Chloride 109 mmol/L (98-107) H 10/01/25 13:42 Carbon Dioxide 21 mmol/L (22-30) L 10/01/25 13:42 BUN 53 mg/dL (7-17) H D 10/01/25 13:42 Creatinine 1.88 mg/dL (0.7-1.0) H 10/01/25 13:42 Estimated GFR 26 (59-) L 10/01/25 13:42 POC Capillary Glucose 113 mg/dl (65-105) H 10/01/25 17:50 AST 44 U/L (14-36) H 10/01/25 13:42 Troponin I 0.379 ng/mL (0.000-0.034) H* 10/01/25 16:41 NT-Pro-B Natriuret Pep 90363 pg/mL (19.9-100) H 10/01/25 13:42 SARS-CoV-2 RNA (RT-PCR) Positive (Negative) A 10/01/25 13:42 Most Recent Suicide Severity Rating Suicide Severity Rating NO RISK INDICATED 10/01/25 13:10
--- NOTE | 2025-10-01 22:46 | PHAR ---
HOME MED (Riociguat [Adempas] 2.5 mg tablet) 1 tablet tid verified
[2025-10-01] MEDS: guaiFENesin 12 HR 600 MG TABCR 1200 MG PO (23:14)
[2025-10-01] MEDS: PRAVASTATIN SODIUM 20 MG TABLET 40 MG PO (23:14)
[2025-10-01] MEDS: ACETAMINOPHEN 325 MG TABLET 650 MG PO (23:14)
[2025-10-01] MEDS: LORATADINE 10 MG TABLET PO (23:14)
[2025-10-01] MEDS: PANTOPRAZOLE 40 MG TABLET PO (23:15)
[2025-10-01] MEDS: WATER FOR IRRIGATION, STERILE 1,000 ML BOTTLE 1000 ML (23:15)
[2025-10-01 23:24] LABS: Partial Thromboplastin Time > 200.0 Seconds (22.3-36.8)
[2025-10-02] VITALS (20 sets, daily range): BP systolic 94–136; BP diastolic 43–75; PULSE 86–98; RESP 16–22; TEMP 36.3–37; O2SAT 91–98
[2025-10-02] MEDS: IPRATROPIUM 0.5 MG/ALBUTEROL SULFATE 2.5 MG (BASE) AMPUL.NEB 3 ML INHALATION ×4 (03:09→20:24)
[2025-10-02 07:01] LABS: Hematocrit 28.1 % (37.0-47.0); Hemoglobin 8.9 g/dL (12.0-15.0); Mean Corpuscular HGB Conc 31.7 g/dl (32-36); Mean Corpuscular Hemoglobin 30.8 pg (26-34); Mean Corpuscular Volume 97.2 fl (80-100); Platelet Count Result 141 k/mm3 (150-375); Red Blood Count 2.89 M/mm3 (4.2-5.4); White Blood Count 6.2 K/mm3 (4.5-10.0)
[2025-10-02 07:13] LABS: Partial Thromboplastin Time 42.8 Seconds (22.3-36.8)
[2025-10-02 07:24] LABS: Alanine Aminotransferase 26 U/L (6-35); Albumin Level 3.6 g/dL (3.5-5.1); Alkaline Phosphatase 95 U/L (38-126); Anion Gap 7 mmol/L (4-12); Aspartate Amino Transferase 38 U/L (14-36); Bilirubin,Total 0.5 mg/dL (0.2-1.3); Blood Urea Nitrogen 60 mg/dL (7-17); Calcium 8.2 mg/dL (8.4-10.2); Carbon Dioxide 19 mmol/L (22-30); Chloride 110 mmol/L (98-107); Estimated CRCL calculation 20 ml/min; Estimated Glomerular Filt Rate 27; Glucose 160 mg/dL (65-110); Potassium 4.6 mmol/L (3.4-5.0); Sodium 136 mmol/L (137-145); Total Protein 6.6 g/dL (6.3-8.2)
[2025-10-02 07:31] LABS: Band Neutrophils Percent 10 % (0-6); Lymphocytes Absolute Manual 0.37 K/mm3 (1.1-4.5); Lymphocytes Percent Manual 6 % (18-44); Monocytes Absolute Manual 0.24 K/mm3 (0.1-0.90); Monocytes Percent Manual 4 % (3-9); Neutrophils Absolute Manual 5.58 K/mm3 (1.3-6.7); Neutrophils Percent Manual 80 % (46-73); Total Cells Counted 100
[2025-10-02 07:32] LABS: Burr Cells Occasional; Hypochromasia Occasional; Schistocytes 1+; Toxic Granulation Present
[2025-10-02] MEDS: DOCUSATE SODIUM 100 MG CAPSULE PO ×2 (09:13→16:40)
[2025-10-02] MEDS: guaiFENesin 12 HR 600 MG TABCR 1200 MG PO ×2 (09:13→21:28)
[2025-10-02] MEDS: DULoxetine HCL 60 MG CAPSULE.DR PO (09:13)
[2025-10-02] MEDS: FERROUS SULFATE 325 MG TABLET PO (09:13)
[2025-10-02] MEDS: PANTOPRAZOLE 40 MG TABLET PO ×2 (09:14→21:27)
[2025-10-02] MEDS: LEFLUNOMIDE 20 MG TABLET PO (09:14)
[2025-10-02] MEDS: FUROSEMIDE 20 MG TABLET PO (09:16)
[2025-10-02] MEDS: INSULIN ASPART (*BKC) 100 UNITS/ML SUB-Q ×2 (12:28→17:31)
--- NOTE | 2025-10-02 13:58 | PCOTNOTE ---
Attempted to see for OT evaluation. Patient just finished a bath with nursing and just got back to bed. Patient reporting she is too tired at this time. Will continue to attempt.
--- NOTE | 2025-10-02 15:09 | P.PNIM_ITS ---
Assessment and Plan Assessment and Plan (1) COVID-19: Code(s): U07.1 - COVID-19 Status: Acute Assessment and Plan: Continue dexamethasone orally for 10 days time Continue iv Remdesivir for 5 days time Guaifenesin po bid Wean off oxygen pts baseline is 3 liters pt is on 7 liters presently (2) Pulmonary embolism of right lower lobe: Code(s): I26.99 - Other pulmonary embolism without acute cor pulmonale Status: Acute Assessment and Plan: Continue heparin drip for PE (3) Elevated troponin: Code(s): R79.89 - Other specified abnormal findings of blood chemistry Status: Acute Assessment and Plan: Troponins elevated likely secondary to PE Order ECHO to check for any burden on the heart Add lasix oral [place] [id number] Watch creat creat today is 1.7 (4) Diabetes: Code(s): E11.9 - Type 2 diabetes mellitus without complications Status: Chronic Assessment and Plan: Low-dose sliding scale Diabetic diet Accu-Cheks a.c. HS Hold home metformin (5) Acute kidney injury superimposed on CKD: Code(s): N17.9 - Acute kidney failure, unspecified; N18.9 - Chronic kidney disease, unspecified Status: Acute Assessment and Plan: stop fluids (6) CHF (congestive heart failure): Code(s): I50.9 - Heart failure, unspecified Status: Acute Assessment and Plan: await echo dc fluids (7) Hypertension: Code(s): I10 - Essential (primary) hypertension Status: Acute Assessment and Plan: watch BPs pt not on any home BP meds Subjective Date/time seen: 10/02/25 15:09 Interval history: 85-year-old with past medical history of pulmonary embolism, diabetes, pancreatitis, hypertension, and congestive heart failure, chronic respiratory failure on 3 L nasal cannula at home. Patient states that she has been come extremely weak, tired and short of breath over the last 3 days. Patient denies fevers chills. Patient gives limited details. According to the son patient has a history of undissolve multiple PEs and sees a marketing summer intern at [facility] request records. Pt on heparin drip for pulmonary embolism Pt is on remdesivir drip for COVID Pt is on 7 liters of oxygen for supportive care CTA chest reviewed showing - 1. Pulmonary embolism subsegmental pulmonary artery right lower lobe, small thrombus burden. 2: Patchy faint groundglass opacities. Differential diagnosis includes pneumonia, early mild edema, hypersensitivity pneumonitis and nonspecific interstitial pneumonia. Review of Systems Review of Systems: Ongoing SOB Exam Narrative: General: SOB at rest on 7 liters of oxygen Respiratory: Diminished BS BL no wheezes or rales Cardiovascular: Regular rate and rhythm, normal S1-S2. No murmurs, rubs, or clicks. Abdomen: Soft, round, no pulsatile masses, nondistended and nontender. No rebound, no guarding. Bowel sounds present. Extremities: No cyanosis, clubbing, or edema present. Pulses are palpable 2/2. Active ROM to all four extremities. Neuro: Alert and orientated x 4. PERRLA. Cranial nerves 2-12 intact without focal deficit. Skin: Warm, dry, and intact, without rash, erythema, or lesion. Psych: pleasant, cooperative, normal speech, normal affect, no hallucinations, no dysarthia Objective Data Vital Signs Vital Signs: Vital Signs - 24 hr 10/01/25 15:19 10/01/25 16:13 10/01/25 17:46 Temperature Pulse Rate 88 84 89 Respiratory Rate 18 21 H 20 Blood Pressure 108/67 101/62 115/75 Pulse Oximetry 95 94 94 Oxygen Delivery Oxygen Flow Rate 10/01/25 19:00 10/01/25 19:30 10/01/25 19:32 Temperature Pulse Rate 89 88 89 Respiratory Rate 22 H 19 24 H Blood Pressure 113/65 114/54 L Pulse Oximetry 91 93 90 Oxygen Delivery Nasal Cannula Oxygen Flow Rate 6 10/01/25 20:00 10/01/25 20:30 10/01/25 21:15 Temperature 36.7 C Pulse Rate 92 93 93 Respiratory Rate 17 16 22 H Blood Pressure 100/43 L 111/66 122/57 L Pulse Oximetry 91 91 92 Oxygen Delivery Oxygen Flow Rate 10/01/25 22:00 10/01/25 22:00 10/01/25 23:15 Temperature Pulse Rate 91 86 Respiratory Rate 18 Blood Pressure Pulse Oximetry 92 Oxygen Delivery High Flow Nasal Cannula Oxygen Flow Rate 6 10/01/25 23:22 10/02/25 00:00 10/02/25 00:00 Temperature Pulse Rate 89 93 Respiratory Rate 18 Blood Pressure Pulse Oximetry 93 Oxygen Delivery High Flow Nasal Cannula Oxygen Flow Rate 7 10/02/25 00:06 10/02/25 02:00 10/02/25 03:10 Temperature 36.6 C Pulse Rate 92 92 91 Respiratory Rate 20 16 Blood Pressure 94/59 L Pulse Oximetry 93 Oxygen Delivery Oxygen Flow Rate 10/02/25 03:17 10/02/25 04:00 10/02/25 04:00 Temperature Pulse Rate 93 93 Respiratory Rate 16 Blood Pressure Pulse Oximetry 94 Oxygen Delivery High Flow Nasal Cannula Oxygen Flow Rate 7 10/02/25 05:08 10/02/25 06:00 10/02/25 08:00 Temperature 37.0 C 36.3 C L Pulse Rate 90 89 93 Respiratory Rate 20 16 Blood Pressure 105/47 L 136/43 L Pulse Oximetry 95 98 Oxygen Delivery Oxygen Flow Rate 10/02/25 09:25 10/02/25 09:28 10/02/25 09:30 Temperature Pulse Rate 94 90 Respiratory Rate 20 20 Blood Pressure Pulse Oximetry 93 Oxygen Delivery High Flow Nasal Cannula Oxygen Flow Rate 7 10/02/25 12:00 10/02/25 12:30 Temperature 36.6 C Pulse Rate 98 Respiratory Rate 18 Blood Pressure 113/69 Pulse Oximetry 91 Oxygen Delivery High Flow Therapy with Na Oxygen Flow Rate 7 Intake/Output Intake/Output: Intake & Output 09/29/25 09/30/25 10/01/25 10/02/25 23:59 23:59 23:59 23:59 Intake Total 834 753.2 Output Total 250 Balance 834 503.2 Meds/Results Medications: Active Medications Generic Name Dose Route Start Last Admin Trade Name Freq PRN Reason Stop Dose Admin Acetaminophen 650 mg 10/01/25 15:50 10/01/25 23:14 Acetaminophen 325 Mg Tablet PO 650 mg Q4H PRN Administration Mild Pain (1-3) or Fever Albuterol/Ipratropium 3 ml 10/01/25 20:00 10/02/25 09:24 Ipratropium 0.5 Mg/Albuterol Sulfate 2.5 Mg (Base) Ampul.Neb 3 Ml INHALATION 3 ml Q6HRT ANAHI Administration Buspirone HCl 30 mg 10/02/25 09:00 10/02/25 09:13 Buspirone Hcl 10 Mg Tablet PO 30 mg BID ANAHI Administration Dexamethasone 6 mg 10/02/25 08:00 10/02/25 09:12 Dexamethasone 2 Mg Tablet PO 10/11/25 08:01 6 mg DAILY@0800 ANAHI Administration Dextrose 12.5 gm 10/01/25 16:13 Dextrose 50% 25 Gm/50 Ml Syringe IV PUSH PRN PRN Hypoglycemia Protocol Docosanol 1 applic 10/01/25 21:00 10/02/25 14:35 Docosanol 10% Cream 2 Gm TOPICAL 1 applic 5 TIMES DAILY ANAHI Administration Docusate Sodium 100 mg 10/01/25 17:00 10/02/25 09:13 Docusate Sodium 100 Mg Capsule PO 100 mg BID ANAHI Administration Duloxetine HCl 60 mg 10/02/25 09:00 10/02/25 09:13 Duloxetine Hcl 60 Mg Capsule.Dr PO 60 mg DAILY ANAHI Administration Ferrous Sulfate 325 mg 10/02/25 09:00 10/02/25 09:13 Ferrous Sulfate 325 Mg Tablet PO 325 mg Q48H ANAHI Administration Furosemide 20 mg 10/02/25 09:00 10/02/25 09:16 Furosemide 20 Mg Tablet PO 20 mg MoWeFr ANAHI Administration Glucagon 1 mg 10/01/25 16:13 Glucagon For Inj 1 Mg Vial IM PRN PRN Hypoglycemia Protocol Glucose 15 gm 10/01/25 16:13 Glucose Oral Gel 15 Gm Of Glucse In 37.5 Gm Tube PO PRN PRN Hypoglycemia Protocol Guaifenesin 1,200 mg 10/01/25 21:00 10/02/25 09:13 Guaifenesin 12 Hr 600 Mg Tabcr PO 1,200 mg Q12HR ANAHI Administration Heparin Sodium (Porcine) 5,000 units 10/01/25 15:48 Heparin Sodium 5,000 Units/Ml Vial IV PUSH PRN PRN aPTT less than 55 seconds Heparin Sodium (Porcine) 2,500 units 10/01/25 15:48 Heparin Sodium 5,000 Units/Ml Vial IV PUSH PRN PRN aPTT 55 - 70 seconds Hydroxyzine HCl 10 mg 10/01/25 19:50 Hydroxyzine Hcl 10 Mg Tablet PO TID PRN Anxiety Heparin Sodium/Dextrose 25,000 units in 250 mls @ 0 mls/hr 10/01/25 15:50 10/02/25 02:56 Heparin Sodium/D5w 100 Units/Ml IV CONT 0 units/hr On Hold: 10/02/25 02:56 .Q0M ANAHI 0 mls/hr Protocol Titration Remdesivir 100 mg in 250 mls @ 250 mls/hr 10/02/25 22:00 IVPB 10/05/25 22:59 Q24H ANAHI Dextrose 1,000 mls @ 100 mls/hr 10/01/25 16:13 Dextrose 5% 1,000 Ml IVPB PRN PRN Hypoglycemia Protocol Insulin Aspart 2 - 5 units 10/01/25 17:00 10/02/25 12:28 Insulin Aspart (*Bkc) 100 Units/Ml SUB-Q 2 units TIDWM ANAHI Administration Protocol Leflunomide 20 mg 10/02/25 09:00 10/02/25 09:14 Leflunomide 20 Mg Tablet PO 20 mg DAILY ANAHI Administration Lidocaine 1 patch 10/01/25 21:30 Lidocaine 5% Patch TRANSDERM DAILY PRN pain Loratadine 10 mg 10/01/25 21:00 10/01/25 23:14 Loratadine 10 Mg Tablet PO 10 mg HS ANAHI Administration Miscellaneous Information 0 each 10/01/25 00:01 Calmoseptine Nonform Hold While Here? XX 10/31/25 00:00 [facility]IFY [facility] Non-Formulary Medication 1 applic 10/02/25 09:00 Menthol-Zinc Oxide [Calmoseptine] TOPICAL 11/01/25 08:59 TID [facility] Home Med ( 2.5 mg 10/01/25 22:00 10/02/25 14:34 Riociguat [Adempas] PO 10/31/25 21:59 2.5 mg 2.5 Mg Tablet) Q8HR ANAHI Administration Ondansetron HCl 4 mg 10/01/25 15:50 Ondansetron Inj 4 Mg/2 Ml Vial IV PUSH Q4H PRN Nausea Oxycodone HCl 5 mg 10/01/25 16:11 Oxycodone Hcl (*Crx) 5 Mg Tab Ir PO Q4H PRN Pain Rated 7-10 Pantoprazole Sodium 40 mg 10/01/25 21:30 10/02/25 09:14 Pantoprazole 40 Mg Tablet PO 40 mg Q12HR ANAHI Administration Pravastatin Sodium 40 mg 10/01/25 21:00 10/01/25 23:14 Pravastatin Sodium 20 Mg Tablet PO 40 mg HS ANAHI Administration Senna 8.6 mg 10/01/25 19:50 Sennosides 8.6 Mg Tablet PO BID PRN Constipation Trazodone HCl 100 mg 10/01/25 21:00 10/01/25 23:14 Trazodone Hcl 50 Mg Tablet PO 100 mg HS ANAHI Administration Valacyclovir HCl 500 mg 10/01/25 21:00 10/01/25 23:14 Valacyclovir Hcl 500 Mg Tablet PO 500 mg HS ANAHI Administration Radiology Results: ITS Impressions Chest X-Ray 10/01/25 14:06 Impression: No acute cardiopulmonary abnormality. Chest CTA 10/01/25 15:20 IMPRESSION: 1. Pulmonary embolism subsegmental pulmonary artery right lower lobe, small thrombus burden. 2: Patchy faint groundglass opacities. Differential diagnosis includes pneumonia, early mild edema, hypersensitivity pneumonitis and nonspecific interstitial pneumonia. Labs Labs: Laboratory Results - last 24 hr 10/01/25 10/01/25 10/01/25 13:42 13:42 13:42 WBC RBC Hgb Hct MCV MCH MCHC RDW Plt Count MPV Immature Gran % (Auto) Neut % (Auto) Lymph % (Auto) [place] % (Auto) Eos % (Auto) Baso % (Auto) Lymph # (Auto) [place] # (Auto) Eos # (Auto) Baso # (Auto) Abs Immat Gran (auto) Absolute Neuts (auto) Absolute Nucleated RBC Total Counted Neutrophils % (Manual) Band Neutrophils % Lymphocytes % (Manual) Monocytes % (Manual) Nucleated RBC % Abs Neuts (Manual) Abs Lymphs (Manual) Abs Monocytes (Manual) Toxic Granulation Platelet Estimate Hypochromasia [place] Cells Schistocytes PT 21.2 H Cancelled INR 1.9 Cancelled APTT 58.6 H Sodium Potassium Chloride Carbon Dioxide Anion Gap BUN Creatinine Estim Creat Clear Calc Estimated GFR Glucose POC Capillary Glucose Calcium Total Bilirubin AST ALT Alkaline Phosphatase Troponin I Total Protein Albumin 10/01/25 10/01/25 10/01/25 13:42 16:41 17:50 WBC RBC Hgb Hct MCV MCH MCHC RDW Plt Count MPV Immature Gran % (Auto) Neut % (Auto) Lymph % (Auto) [place] % (Auto) Eos % (Auto) Baso % (Auto) Lymph # (Auto) [place] # (Auto) Eos # (Auto) Baso # (Auto) Abs Immat Gran (auto) Absolute Neuts (auto) Absolute Nucleated RBC Total Counted Neutrophils % (Manual) Band Neutrophils % Lymphocytes % (Manual) Monocytes % (Manual) Nucleated RBC % Abs Neuts (Manual) Abs Lymphs (Manual) Abs Monocytes (Manual) Toxic Granulation Platelet Estimate Hypochromasia [place] Cells Schistocytes PT INR APTT Cancelled Sodium Potassium Chloride Carbon Dioxide Anion Gap BUN Creatinine Estim Creat Clear Calc Estimated GFR Glucose POC Capillary Glucose 113 H Calcium Total Bilirubin AST ALT Alkaline Phosphatase Troponin I 0.379 H* Total Protein Albumin 10/01/25 10/01/25 10/02/25 21:37 22:48 06:54 WBC 6.2 RBC 2.89 L Hgb 8.9 L Hct 28.1 L MCV 97.2 MCH 30.8 MCHC 31.7 L RDW 16.9 H Plt Count 141 L MPV 9.8 Immature Gran % (Auto) Not Reportable Neut % (Auto) Not Reportable Lymph % (Auto) Not Reportable [place] % (Auto) Not Reportable Eos % (Auto) Not Reportable Baso % (Auto) Not Reportable Lymph # (Auto) Not Reportable [place] # (Auto) Not Reportable Eos # (Auto) Not Reportable Baso # (Auto) Not Reportable Abs Immat Gran (auto) Not Reportable Absolute Neuts (auto) Not Reportable Absolute Nucleated RBC Not Reportable Total Counted 100 Neutrophils % (Manual) 80 H Band Neutrophils % 10 H Lymphocytes % (Manual) 6 L Monocytes % (Manual) 4 Nucleated RBC % Not Reportable Abs Neuts (Manual) 5.58 Abs Lymphs (Manual) 0.37 L Abs Monocytes (Manual) 0.24 Toxic Granulation Present Platelet Estimate Slightly decreased Hypochromasia Occasional [place] Cells Occasional Schistocytes 1+ PT INR APTT > 200.0 H* 42.8 H Sodium 136 L Potassium 4.6 Chloride 110 H Carbon Dioxide 19 L Anion Gap 7 BUN 60 H Creatinine 1.79 H Estim Creat Clear Calc 20 Estimated GFR 27 L Glucose 160 H POC Capillary Glucose 278 H Calcium 8.2 L Total Bilirubin 0.5 AST 38 H ALT 26 Alkaline Phosphatase 95 Troponin I Total Protein 6.6 Albumin 3.6 10/02/25 10/02/25 07:47 12:20 WBC RBC Hgb Hct MCV MCH MCHC RDW Plt Count MPV Immature Gran % (Auto) Neut % (Auto) Lymph % (Auto) [place] % (Auto) Eos % (Auto) Baso % (Auto) Lymph # (Auto) [place] # (Auto) Eos # (Auto) Baso # (Auto) Abs Immat Gran (auto) Absolute Neuts (auto) Absolute Nucleated RBC Total Counted Neutrophils % (Manual) Band Neutrophils % Lymphocytes % (Manual) Monocytes % (Manual) Nucleated RBC % Abs Neuts (Manual) Abs Lymphs (Manual) Abs Monocytes (Manual) Toxic Granulation Platelet Estimate Hypochromasia [place] Cells Schistocytes PT INR APTT Sodium Potassium Chloride Carbon Dioxide Anion Gap BUN Creatinine Estim Creat Clear Calc Estimated GFR Glucose POC Capillary Glucose 146 H 208 H Calcium Total Bilirubin AST ALT Alkaline Phosphatase Troponin I Total Protein Albumin
[2025-10-02] MEDS: SENNOSIDES 8.6 MG TABLET PO (16:40)
--- NOTE | 2025-10-02 18:19 | WPDONCCN ---
Assessment and Plan Assessment and plan (1) Pulmonary embolism of right lower lobe: Code(s): I26.99 - Other pulmonary embolism without acute cor pulmonale Status: Acute Assessment and Plan: Patient has a previous history of pulmonary embolism and has been on anticoagulation with initially warfarin then Eliquis for about a month duration. She also has a history of congestive heart failure and chronic respiratory failure came into the hospital with worsening of shortness of breath and tiredness and fatigue. CTA chest showed pulmonary embolism in the right pulmonary artery with small thrombus burden. She was also diagnosed with COVID pneumonia. I will order bilateral lower extremity Doppler studies and continue the heparin drip. My preference will be to continue Eliquis as an outpatient since the thrombus burden is small and it might be resolving pulmonary embolism. She will follow-up in the office. (2) Normocytic anemia: Code(s): D64.9 - Anemia, unspecified Status: Acute Assessment and Plan: Labs reviewed that showed renal insufficiency. Anemia is likely secondary to renal insufficiency but I will order the further workup that will include iron studies and vitamin B12 level. Again she will follow-up in the office. HPI Data of Consult Date/Time: 10/02/25 18:19 Requesting Physician: Alek weathers Oca, MD Primary Care Provider: UNKNOWN,DOCTOR Consult Narrative Narrative: Sayra Glass is a 85 year old female previous history of pulmonary embolism, type 2 diabetes, hypertension and congestive heart failure and chronic respiratory failure with 3 L of oxygen at home came into the hospital with generalized tiredness and fatigue and shortness of breath for last 3 days duration without any fevers and chills. CT scan showed pulmonary embolism in the right lower lobe with small thrombus burden. Patient was started on heparin drip. She was previously on Eliquis for more than a year for pulmonary embolism. She denies any recent injury and surgery. Other labs showed hemoglobin of 8.9 with platelet count of [id number]. Creatinine was elevated at 1.7. Patient was diagnosed with COVID pneumonia. Denies any other complaints. Review of Systems Review of Systems: Twelve point review of system was reviewed [facility] Past Medical History Medical History (Updated 10/01/25 @ 16:50 by Windy Anguiano MD) Pulmonary hypertension Hypertension 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 Lumbar stenosis Pancreatitis CHF (congestive heart failure) Pulmonary embolism Chronic respiratory failure Elevated liver enzymes Upper abdominal pain Ventricular bigeminy Insomnia Degenerative lumbar disc Family History Family History Sibling Dementia Father Acute myocardial infarction Mother Diabetes mellitus Social History Social History Social History: POLST signed 12/12/24 reports Yes CPR with selective treatment Smoking status: Never smoker Second hand tobacco smoke exposure: Yes Alcohol intake: never Substance use: never Substance use type: does not use Lack of Transportation: No Lack of Food: Never True Current Housing: I Have Housing Concerned About Future Housing: No Difficulty Paying Gas/Electric Bills: No Difficulty Paying for Meds: No Currently Unemployed: No Education: High School Diploma/GED Difficulty w/ Childcare or Family Care: No Living arrangements: assisted living Additional living arrangements comments: [facility] Spiritual care concerns: No Meds Home Medications and Allergies Home Medications ?Medication ?Instructions ?Recorded ?Confirmed ?Type duloxetine 60 mg capsule,delayed 60 mg PO DAILY 03/20/24 10/01/25 History release leflunomide 20 mg tablet 20 mg PO DAILY 03/20/24 10/01/25 History metformin 500 mg tablet 500 mg PO DAILY@0800 03/20/24 10/01/25 History metoprolol succinate 25 mg 25 mg PO HS 03/20/24 10/01/25 History tablet,extended release 24 hr pravastatin 40 mg tablet 40 mg PO HS 03/20/24 10/01/25 History trazodone 100 mg tablet 100 mg PO HS 03/20/24 10/01/25 History nitrofurantoin 100 mg PO Q12H 3 days #6 caps 03/24/24 10/01/25 Rx monohydrate/macrocrystals 100 mg capsule (Macrobid) clonazepam 0.5 mg tablet See Rx Instructions .Route .COMPLEX 08/02/24 10/01/25 History fexofenadine 180 mg tablet 180 mg PO DAILY 08/02/24 10/01/25 History losartan 100 mg tablet 100 mg PO DAILY 08/02/24 10/01/25 History amlodipine 5 mg tablet (Norvasc) 5 mg PO DAILY #60 tabs 08/08/24 10/01/25 Rx amoxicillin 875 mg-potassium 1 tablet PO Q12H #6 tabs 08/08/24 10/01/25 Rx clavulanate 125 mg tablet methocarbamol 750 mg tablet 750 mg PO TID #30 tabs 05/10/25 10/01/25 Rx acetaminophen 500 mg capsule 1,000 mg (2 x 500 mg) PO Q6H PRN 05/20/25 10/01/25 Rx pain #30 caps diclofenac sodium 1 % topical gel 2 g topical QID #50 grams 05/20/25 10/01/25 Rx lidocaine 4 % topical patch 1 patch topical DAILY PRN pain #10 05/20/25 10/01/25 Rx ea oxycodone 5 mg capsule 5 mg PO Q8H PRN pain 5 days #7 caps 05/20/25 10/01/25 Rx apixaban 2.5 mg tablet (Eliquis) 5 mg PO Q12HR 10/01/25 10/01/25 History buspirone 30 mg tablet 30 mg PO BID 10/01/25 10/01/25 History cetirizine 10 mg tablet 10 mg PO HS 10/01/25 10/01/25 History ferrous sulfate 325 mg (65 mg 325 mg PO .COMPLEX 10/01/25 10/01/25 History iron) tablet furosemide 20 mg tablet 20 mg PO .COMPLEX 10/01/25 10/01/25 History hydroxyzine HCl 10 mg tablet 10 mg PO TID PRN anxiety 10/01/25 10/01/25 History loperamide 2 mg capsule 2 mg PO Q6H PRN loose stool 10/01/25 10/01/25 History menthol 0.44 %-zinc oxide 20.6 % 1 applic topical TID 10/01/25 10/01/25 History topical ointment (Calmoseptine) pantoprazole 40 mg tablet,delayed 40 mg PO Q12H 10/01/25 10/01/25 History release riociguat 2.5 mg tablet (Adempas) 2.5 mg PO TID 10/01/25 10/01/25 History sennosides 8.6 mg tablet (senna) 8.6 mg PO BID PRN constipation 10/01/25 10/01/25 History sulfamethoxazole 400 1 tablet PO HS 10/01/25 10/01/25 History mg-trimethoprim 80 mg tablet valacyclovir 500 mg tablet 500 mg PO HS 10/01/25 10/01/25 History zolpidem 5 mg tablet 5 mg PO HS 10/01/25 10/01/25 History Allergies Allergy/AdvReac Type Severity Reaction Status Date / Time adhesive tape Allergy Mild Rash Verified 10/01/25 22:08 Vital Signs Vital Signs - 24 hr 10/01/25 19:00 10/01/25 19:30 10/01/25 19:32 Temperature Pulse Rate 89 88 89 Respiratory Rate 22 H 19 24 H Blood Pressure 113/65 114/54 L Pulse Oximetry 91 93 90 Oxygen Delivery Nasal Cannula Oxygen Flow Rate 6 10/01/25 20:00 10/01/25 20:30 10/01/25 21:15 Temperature 36.7 C Pulse Rate 92 93 93 Respiratory Rate 17 16 22 H Blood Pressure 100/43 L 111/66 122/57 L Pulse Oximetry 91 91 92 Oxygen Delivery Oxygen Flow Rate 10/01/25 22:00 10/01/25 22:00 10/01/25 23:15 Temperature Pulse Rate 91 86 Respiratory Rate 18 Blood Pressure Pulse Oximetry 92 Oxygen Delivery High Flow Nasal Cannula Oxygen Flow Rate 6 10/01/25 23:22 10/02/25 00:00 10/02/25 00:00 Temperature Pulse Rate 89 93 Respiratory Rate 18 Blood Pressure Pulse Oximetry 93 Oxygen Delivery High Flow Nasal Cannula Oxygen Flow Rate 7 10/02/25 00:06 10/02/25 02:00 10/02/25 03:10 Temperature 36.6 C Pulse Rate 92 92 91 Respiratory Rate 20 16 Blood Pressure 94/59 L Pulse Oximetry 93 Oxygen Delivery Oxygen Flow Rate 10/02/25 03:17 10/02/25 04:00 10/02/25 04:00 Temperature Pulse Rate 93 93 Respiratory Rate 16 Blood Pressure Pulse Oximetry 94 Oxygen Delivery High Flow Nasal Cannula Oxygen Flow Rate 7 10/02/25 05:08 10/02/25 06:00 10/02/25 08:00 Temperature 37.0 C 36.3 C L Pulse Rate 90 89 93 Respiratory Rate 20 16 Blood Pressure 105/47 L 136/43 L Pulse Oximetry 95 98 Oxygen Delivery Oxygen Flow Rate 10/02/25 09:25 10/02/25 09:28 10/02/25 09:30 Temperature Pulse Rate 94 90 Respiratory Rate 20 20 Blood Pressure Pulse Oximetry 93 Oxygen Delivery High Flow Nasal Cannula Oxygen Flow Rate 7 10/02/25 12:00 10/02/25 12:30 10/02/25 15:50 Temperature 36.6 C Pulse Rate 98 86 Respiratory Rate 18 20 Blood Pressure 113/69 Pulse Oximetry 91 Oxygen Delivery High Flow Therapy with Na Oxygen Flow Rate 7 10/02/25 16:00 10/02/25 16:00 Temperature 36.3 C L Pulse Rate 96 91 Respiratory Rate 18 20 Blood Pressure 128/65 Pulse Oximetry 91 Oxygen Delivery Oxygen Flow Rate Exam Narrative: Lungs are clear to auscultation bilaterally Cardiovascular regular rate rhythm no murmurs Abdomen soft nontender nondistended Extremities no edema Results Labs 10/02/25 06:54 10/02/25 06:54 Labs: Short CBC 10/02/25 Range/Units 06:54 WBC 6.2 (4.5-10.0) K/mm3 Hgb 8.9 L (12.0-15.0) g/dL Hct 28.1 L (37.0-47.0) % Plt Count 141 L (150-375) k/mm3 [facility] 10/02/25 06:54 Sodium 136 L Potassium 4.6 Chloride 110 H Carbon Dioxide 19 L BUN 60 H Creatinine 1.79 H Glucose 160 H Calcium 8.2 L Liver Function 10/02/25 Range/Units 06:54 Total Bilirubin 0.5 (0.2-1.3) mg/dL AST 38 H (14-36) U/L ALT 26 (6-35) U/L Alkaline Phosphatase 95 (38-126) U/L Albumin 3.6 (3.5-5.1) g/dL
[2025-10-02 20:00] LABS: Iron 25 ug/dL (37-170)
[2025-10-02 20:09] LABS: Percent Iron Saturation 8 % (20-50)
[2025-10-02 20:37] LABS: Ferritin 67.80 ng/mL (11.1-264)
[2025-10-02 21:10] LABS: Vitamin B12 556.0 pg/mL (239-931)
[2025-10-02] MEDS: ACETAMINOPHEN 325 MG TABLET 650 MG PO (21:24)
[2025-10-02] MEDS: REMDESIVIR 100 MG/NS 250 ML 100 MG/250 ML BAG 250 MG IVPB (21:26)
[2025-10-02] MEDS: APIXABAN 5 MG TABLET PO (21:27)
[2025-10-02] MEDS: PRAVASTATIN SODIUM 20 MG TABLET 40 MG PO (21:27)
[2025-10-02] MEDS: LORATADINE 10 MG TABLET PO (21:28)
[2025-10-03] VITALS (15 sets, daily range): BP systolic 119–154; BP diastolic 54–75; PULSE 92–105; RESP 16–24; TEMP 36.1–37.2; O2SAT 93–100
--- NOTE | 2025-10-03 | ECHO_ITS ---
Patient Info Name: Sayra Glass Age: 85 years : 1940 Gender: Female Ht: 66 in Wt: 153 lbs BSA: 1.81 m2 HR: 102 bpm BP: 136 / 54 mmHg Technical Quality: Good Exam Date: 10/03/2025 2:59 PM Patient Status: I Admit Date: 10/01/2025 Exam Type: CA echo doppler color flow Complete two-dimensional, color flow and Doppler transthoracic echocardiogram is performed. Staff Referring Physician: Irma Tariq Inside Tester: Pranav Bruce III Attending Provider: Alek Holcomb Oca Summary 1. Complete two-dimensional, color flow and Doppler transthoracic echocardiogram is performed. 2. Left ventricular chamber dimension is normal. 3. D shaped interventricular septum during systole and diastole suggestive of pressure and volume overload of right ventricle. 4. There is severe concentric increased left ventricular wall thickness. 5. Left ventricular systolic function is hyperdynamic, estimated at >70. 6. The left ventricular diastolic function is grade I diastolic dysfunction. 7. E/e' 12 is mildly elevated. 8. Right ventricular chamber dimension is severely enlarged. 9. Right ventricular systolic function is severely reduced and with abnormal TAPSE 1.0 cm. 10. Left atrial chamber dimension is mildly enlarged. 11. Right atrial chamber dimension is moderately enlarged. 12. There is moderate aortic valve sclerosis. 13. There is mild aortic valve stenosis with a peak velocity of 253 cm/s, mean gradient of 14 mmHg, and aortic valve area of 1.5 cm2. 14. The mitral valve has a moderately calcified annulus. 15. There is severe tricuspid valve regurgitation. 16. Severe pulmonary hypertension, estimated pulmonary arterial systolic pressure is 99 mmHg. 17. There is trivial pericardial effusion. Left Ventricle E/e' 12 is mildly elevated. Left ventricular chamber dimension is normal. Left ventricular systolic function is hyperdynamic, estimated at >70. There is severe concentric increased left ventricular wall thickness. The left ventricular diastolic function is grade I diastolic dysfunction. D shaped interventricular septum during systole and diastole suggestive of pressure and volume overload of right ventricle. Right Ventricle Right ventricular chamber dimension is severely enlarged. Right ventricular systolic function is severely reduced and with abnormal TAPSE 1.0 cm. Left Atria Left atrial chamber dimension is mildly enlarged. Right Atria Right atrial chamber dimension is moderately enlarged. Aortic Valve The aortic valve is trileaflet. There is moderate aortic valve sclerosis. There is mild aortic valve stenosis with a peak velocity of 253 cm/s, mean gradient of 14 mmHg, and aortic valve area of 1.5 cm2. There is no aortic valve regurgitation. Pulmonic Valve There is no pulmonic regurgitation. Mitral Valve The mitral valve has a moderately calcified annulus. There is no mitral valve stenosis. There is no mitral valve regurgitation. Tricuspid Valve There is severe tricuspid valve regurgitation. Severe pulmonary hypertension, estimated pulmonary arterial systolic pressure is 99 mmHg. Pericardium/Pleural There is trivial pericardial effusion. Inferior Vena Cava Normal inferior vena cava with >50% collapse upon inspiration consistent with normal right atrial pressure, 5 mmHg. Aorta The aortic root size at the sinus of Valsalva is normal. Left Ventricular Outflow Tract Name Value Normal LVOT 2D LVOT Diameter 2.0 cm LVOT Doppler LVOT Peak Velocity 100 cm/s LVOT Peak Gradient 4 mmHg LVOT Mean Gradient 2 mmHg LVOT VTI 21 cm LVOT VTI/AV VTI Ratio 0.5 LVOT Stroke Volume 65 ml LVOT CO 5.9 l/min LVOT CI 3.3 l/min/m2 Pulmonic Valve Name Value Normal PV Doppler PV Peak Velocity 74 cm/s PV Peak Gradient 2 mmHg PV Mean Gradient 1 mmHg Mitral Valve Name Value Normal MV Doppler MV Peak Gradient 9 mmHg MV Mean Gradient 4 mmHg MV Area (Cont Eq VTI) 2.7 cm2 MV Diastolic Function MV E Peak Velocity 77 cm/s MV A Peak Velocity 142 cm/s MV E/A 0.5 MV Decel Time (PW) 260 ms MV Annular TDI MV E/e' (Septal) 11.7 MV E/e' (Lateral) 12.9 MV E/e' (Average) 12.3 Tricuspid Valve Name Value Normal TV Regurgitation Doppler TR Peak Velocity 484 cm/s TR Peak Gradient 94 mmHg Estimated PAP/RSVP RA Pressure 5 mmHg <=5 PA Systolic Pressure 99 mmHg <36 RV Systolic Pressure 99 mmHg <36 TV Annular TDI TV Lateral Crista s' Velocity 8.9 cm/s >=9.5 Aortic Valve Name Value Normal AV Doppler AV Peak Velocity 253 cm/s AV Peak Gradient 26 mmHg AV Mean Gradient 14 mmHg AV VTI 45 cm AV Area (Cont Eq VTI) 1.5 cm2 >=3.0 AV Area (Cont Eq Kenny) 1.2 cm2 AV DI (Kenny) 0.40 AV Regurgitation 2D LVOT Area 3.1 cm2 Ventricles Name Value Normal LV Dimensions 2D/MM IVS Diastolic Thickness (2D) 1.2 cm 0.6-1.0 LVID Diastole (2D) 2.9 cm 3.8-5.2 LVIW Diastolic Thickness (2D) 1.5 cm 0.6-0.9 LVID Systole (2D) 1.4 cm 2.2-3.5 LVOT Diameter 2.0 cm LV Mass (2D Cubed) 126.62 g 67.00-162.00 LV Mass Index (2D Cubed) 70 g/m2 43-95 Relative Wall Thickness (2D) 1.04 <=0.42 LV Fractional Shortening/Ejection Fraction 2D/MM LV Fractional Shortening (2D) 51 % 27-45 LV EF (2D Teichholz) 84 % LV Diastolic Volume (4C MOD) 27 ml LV EF (4C MOD) 81 % LV Diastolic Volume (2C MOD) 40 ml LV EF (2C MOD) 75 % LV Diastolic Volume (BP MOD) 35 ml 46-106 LV Diastolic Volume Index (BP MOD) 19 ml/m2 29-61 LV Systolic Volume (BP MOD) 8 ml 14-42 LV Systolic Volume Index (BP MOD) 4 ml/m2 8-24 LV EF (BP MOD) 78 % 54-74 LV Diastolic Length (4C) 6.6 cm LV Systolic Length (4C) 5.2 cm LV Stroke Volume (4C MOD) 22 ml Atria Name Value Normal RA Dimensions RA Systolic Major Boscobel Length (4C) 6.1 cm 2.2-2.8 RA Area (4C) 24.6 cm2 <=18.0 Report Signatures
--- NOTE | 2025-10-03 01:22 | PCRCNOTE ---
CPT via Vest discontinued (per provider), due to Pulmonary Embolism, per CT on 10/01/25
[2025-10-03] MEDS: IPRATROPIUM 0.5 MG/ALBUTEROL SULFATE 2.5 MG (BASE) AMPUL.NEB 3 ML INHALATION ×2 (02:26→08:09)
[2025-10-03 05:03] LABS: Alanine Aminotransferase 27 U/L (6-35); Albumin Level 3.7 g/dL (3.5-5.1); Alkaline Phosphatase 99 U/L (38-126); Aspartate Amino Transferase 40 U/L (14-36); Bilirubin,Total 0.7 mg/dL (0.2-1.3); INR 1.6; Prothrombin Time 19.0 Seconds (11.1-14.7); Total Protein 6.7 g/dL (6.3-8.2)
[2025-10-03] MEDS: SALINE 0.65% NAS SOLN 44 ML BTL 1 SPRAY NASAL ×3 (05:17→17:50)
[2025-10-03] MEDS: guaiFENesin 12 HR 600 MG TABCR 1200 MG PO ×2 (08:57→21:30)
[2025-10-03] MEDS: APIXABAN 5 MG TABLET PO ×2 (08:57→21:30)
[2025-10-03] MEDS: DOCUSATE SODIUM 100 MG CAPSULE PO ×2 (08:57→17:44)
[2025-10-03] MEDS: DULoxetine HCL 60 MG CAPSULE.DR PO (08:58)
[2025-10-03] MEDS: LEFLUNOMIDE 20 MG TABLET PO (08:58)
[2025-10-03] MEDS: PANTOPRAZOLE 40 MG TABLET PO ×2 (08:59→21:30)
[2025-10-03] MEDS: FUROSEMIDE 20 MG TABLET PO (08:59)
[2025-10-03] MEDS: SENNOSIDES 8.6 MG TABLET PO (09:09)
[2025-10-03 10:15] LABS: Hematocrit 27.5 % (37.0-47.0); Hemoglobin 8.7 g/dL (12.0-15.0); Mean Corpuscular HGB Conc 31.6 g/dl (32-36); Mean Corpuscular Hemoglobin 31.0 pg (26-34); Mean Corpuscular Volume 97.9 fl (80-100); Platelet Count Result 162 k/mm3 (150-375); Red Blood Count 2.81 M/mm3 (4.2-5.4); White Blood Count 6.2 K/mm3 (4.5-10.0)
[2025-10-03 10:40] LABS: Alanine Aminotransferase 28 U/L (6-35); Albumin Level 3.6 g/dL (3.5-5.1); Alkaline Phosphatase 105 U/L (38-126); Anion Gap 9 mmol/L (4-12); Aspartate Amino Transferase 32 U/L (14-36); Bilirubin,Total 0.6 mg/dL (0.2-1.3); Blood Urea Nitrogen 74 mg/dL (7-17); Calcium 8.4 mg/dL (8.4-10.2); Carbon Dioxide 17 mmol/L (22-30); Chloride 108 mmol/L (98-107); Estimated CRCL calculation 17 ml/min; Estimated Glomerular Filt Rate 22; Glucose 173 mg/dL (65-110); Magnesium 2.3 mg/dL (1.6-2.3); Potassium 4.3 mmol/L (3.4-5.0); Sodium 134 mmol/L (137-145); Total Protein 6.3 g/dL (6.3-8.2)
[2025-10-03 10:53] LABS: Band Neutrophils Percent 7 % (0-6); Lymphocytes Absolute Manual 0.62 K/mm3 (1.1-4.5); Lymphocytes Percent Manual 10 % (18-44); Monocytes Absolute Manual 0.62 K/mm3 (0.1-0.90); Monocytes Percent Manual 10 % (3-9); Neutrophils Absolute Manual 4.96 K/mm3 (1.3-6.7); Neutrophils Percent Manual 73 % (46-73); Total Cells Counted 100
[2025-10-03 10:54] LABS: Burr Cells 2+; Hypochromasia Occasional; Schistocytes 1+; Target Cells Occasional
--- NOTE | 2025-10-03 13:24 | P.PNIM_ITS ---
Assessment and Plan Assessment and Plan (1) COVID-19: Code(s): U07.1 - COVID-19 Status: Acute (2) Pulmonary embolism of right lower lobe: Code(s): I26.99 - Other pulmonary embolism without acute cor pulmonale Status: Acute (3) Elevated troponin: Code(s): R79.89 - Other specified abnormal findings of blood chemistry Status: Acute (4) Diabetes: Code(s): E11.9 - Type 2 diabetes mellitus without complications Status: Chronic (5) Acute kidney injury superimposed on CKD: Code(s): N17.9 - Acute kidney failure, unspecified; N18.9 - Chronic kidney disease, unspecified Status: Acute (6) CHF (congestive heart failure): Code(s): I50.9 - Heart failure, unspecified Status: Acute (7) Hypertension: Code(s): I10 - Essential (primary) hypertension Status: Acute Plan 85-year-old with past medical history of pulmonary embolism, diabetes, pancreatitis, hypertension, and congestive heart failure, chronic respiratory failure on 3 L nasal cannula at home presented with worsening shortness of breath, feeling extremely weak.According to the son patient has a history of undissolve multiple PEs and sees a support coordinator at [facility]. Tested positive for COVID.CT shows Pulmonary embolism subsegmental pulmonary artery right lower lobe, small thrombus burden and Patchy faint groundglass opacities. 1. Acute on chronic hypoxic respiratory failure: Currently patient is on 7 L of O2 support, home O2 is 3 L at baseline Continue with remdesivir he Continue with IV dexamethasone Pulmonary consult Appreciate oncology help Patient has been changed to Eliquis again due to small clot burden Await echocardiogram Continues to have intermittent nosebleed Continue with scheduled nasal saline Will add Afrin for 3 days Humidified oxygen Continue with DuoNebs DVT study in bilateral leg is negative 2. Eyal I on pre-existing CKD: Monitor kidney function Avoid nephrotoxins Currently on Lasix Will consider renal consult if continues to worsen Received contrast with CTA chest on admission Obtain renal ultrasound 3. Continue with other home medications 4. Constipation: Will add Mag citrate 5. Code status: Full 6. Disposition: Pending improvement Time Spent With Patient Time with patient: 25 - 35 minutes Subjective Date/time seen: 10/03/25 13:24 Interval history: Continues to have intermittent nosebleed ? Hemoptysis intermittently Review of Systems Review of Systems: Ongoing SOB Exam Narrative: General: Feeling short of breath Respiratory: Diminished BS BL no wheezes or rales Cardiovascular: Regular rate and rhythm, normal S1-S2. Abdomen: Soft, round, no pulsatile masses, nondistended and nontender. Bowel sounds present. Extremities: No cyanosis, clubbing, or edema present. Neuro: Alert and orientated x 4. PERRLA. Skin: Warm, dry, and intact, without rash, erythema, or lesion. Psych: pleasant, cooperative, Objective Data Vital Signs Vital Signs: Vital Signs - 24 hr 10/02/25 15:50 10/02/25 16:00 10/02/25 16:00 Temperature 97.3 F L Pulse Rate 86 96 91 Respiratory Rate 20 18 20 Blood Pressure 128/65 Pulse Oximetry 91 Oxygen Delivery Oxygen Flow Rate 10/02/25 16:00 10/02/25 16:00 10/02/25 18:00 Temperature Pulse Rate 90 93 Respiratory Rate Blood Pressure Pulse Oximetry 97 Oxygen Delivery High Flow Therapy with Na Oxygen Flow Rate 7 10/02/25 20:00 10/02/25 20:00 10/02/25 20:40 Temperature 97.9 F Pulse Rate 93 93 Respiratory Rate 22 H Blood Pressure 125/75 Pulse Oximetry 92 92 Oxygen Delivery High Flow Therapy with Na Oxygen Flow Rate 7 10/02/25 22:00 10/03/25 00:00 10/03/25 00:00 Temperature Pulse Rate 94 96 Respiratory Rate Blood Pressure Pulse Oximetry 94 Oxygen Delivery High Flow Therapy with Na Oxygen Flow Rate 7 10/03/25 00:54 10/03/25 02:00 10/03/25 04:00 Temperature 97.8 F Pulse Rate 93 94 105 H Respiratory Rate 22 H Blood Pressure 119/69 Pulse Oximetry 97 Oxygen Delivery Oxygen Flow Rate 10/03/25 04:00 10/03/25 04:00 10/03/25 06:00 Temperature 97.3 F L Pulse Rate 102 H 94 Respiratory Rate 16 Blood Pressure 136/54 L Pulse Oximetry 94 94 Oxygen Delivery High Flow Therapy with Na Oxygen Flow Rate 7 10/03/25 08:00 10/03/25 08:00 10/03/25 08:00 Temperature 97 F L Pulse Rate 96 96 Respiratory Rate 18 Blood Pressure 123/75 Pulse Oximetry 100 93 Oxygen Delivery High Flow Therapy with Na Oxygen Flow Rate 7 10/03/25 09:44 10/03/25 12:00 Temperature 97 F L Pulse Rate 97 Respiratory Rate 22 H Blood Pressure 154/72 H Pulse Oximetry 98 Oxygen Delivery Nasal Cannula Oxygen Flow Rate 6 Intake/Output Intake/Output: Intake & Output 09/30/25 10/01/25 10/02/25 10/03/25 23:59 23:59 23:59 23:59 Intake Total 834 3193.2 360 Output Total 470 150 Balance 834 2723.2 210 Meds/Results Medications: Active Medications Generic Name Dose Route Start Last Admin Trade Name Freq PRN Reason Stop Dose Admin Acetaminophen 650 mg 10/01/25 15:50 10/02/25 21:24 Acetaminophen 325 Mg Tablet PO 650 mg Q4H PRN Administration Mild Pain (1-3) or Fever Albuterol/Ipratropium 3 ml 10/01/25 20:00 10/03/25 08:09 Ipratropium 0.5 Mg/Albuterol Sulfate 2.5 Mg (Base) Ampul.Neb 3 Ml INHALATION 3 ml Q6HRT ANAHI Administration Apixaban 5 mg 10/02/25 21:00 10/03/25 08:57 Apixaban 5 Mg Tablet PO 5 mg Q12HR ANAHI Administration Buspirone HCl 30 mg 10/02/25 09:00 10/03/25 12:05 Buspirone Hcl 10 Mg Tablet PO 30 mg BID ANAHI Administration Dexamethasone 6 mg 10/02/25 08:00 10/03/25 08:56 Dexamethasone 2 Mg Tablet PO 10/11/25 08:01 6 mg DAILY@0800 ANAHI Administration Dextrose 12.5 gm 10/01/25 16:13 Dextrose 50% 25 Gm/50 Ml Syringe IV PUSH PRN PRN Hypoglycemia Protocol Docosanol 1 applic 10/01/25 21:00 10/03/25 12:06 Docosanol 10% Cream 2 Gm TOPICAL 1 applic 5 TIMES DAILY ANAHI Administration Docusate Sodium 100 mg 10/01/25 17:00 10/03/25 08:57 Docusate Sodium 100 Mg Capsule PO 100 mg BID ANAHI Administration Duloxetine HCl 60 mg 10/02/25 09:00 10/03/25 08:58 Duloxetine Hcl 60 Mg Capsule.Dr PO 60 mg DAILY ANAHI Administration Ferrous Sulfate 325 mg 10/02/25 09:00 10/02/25 09:13 Ferrous Sulfate 325 Mg Tablet PO 325 mg Q48H ANAHI Administration Furosemide 20 mg 10/03/25 09:00 10/03/25 08:59 Furosemide 20 Mg Tablet PO 20 mg DAILY ANAHI Administration Glucagon 1 mg 10/01/25 16:13 Glucagon For Inj 1 Mg Vial IM PRN PRN Hypoglycemia Protocol Glucose 15 gm 10/01/25 16:13 Glucose Oral Gel 15 Gm Of Glucse In 37.5 Gm Tube PO PRN PRN Hypoglycemia Protocol Guaifenesin 1,200 mg 10/01/25 21:00 10/03/25 08:57 Guaifenesin 12 Hr 600 Mg Tabcr PO 1,200 mg Q12HR ANAHI Administration Hydroxyzine HCl 10 mg 10/01/25 19:50 Hydroxyzine Hcl 10 Mg Tablet PO TID PRN Anxiety Heparin Sodium/Dextrose 25,000 units in 250 mls @ 0 mls/hr 10/01/25 15:50 10/02/25 02:56 Heparin Sodium/D5w 100 Units/Ml IV CONT 0 units/hr On Hold: 10/02/25 02:56 .Q0M ANAHI 0 mls/hr Protocol Titration Remdesivir 100 mg in 250 mls @ 250 mls/hr 10/02/25 22:00 10/02/25 21:26 IVPB 10/05/25 22:59 250 mls/hr Q24H ANAHI Administration Dextrose 1,000 mls @ 100 mls/hr 10/01/25 16:13 Dextrose 5% 1,000 Ml IVPB PRN PRN Hypoglycemia Protocol Insulin Aspart 2 - 5 units 10/01/25 17:00 10/03/25 12:07 Insulin Aspart (*Bkc) 100 Units/Ml SUB-Q Not Given TIDWM ANAHI Protocol Leflunomide 20 mg 10/02/25 09:00 10/03/25 08:58 Leflunomide 20 Mg Tablet PO 20 mg DAILY ANAHI Administration Lidocaine 1 patch 10/01/25 21:30 Lidocaine 5% Patch TRANSDERM DAILY PRN pain Loratadine 10 mg 10/01/25 21:00 10/02/25 21:28 Loratadine 10 Mg Tablet PO 10 mg HS ANAHI Administration Miscellaneous Information 0 each 10/01/25 00:01 Calmoseptine Nonform Hold While Here? XX 10/31/25 00:00 CLARIFY ANAHI Non-Formulary Medication 1 applic 10/02/25 09:00 Menthol-Zinc Oxide [Calmoseptine] TOPICAL 11/01/25 08:59 TID [facility] Home Med ( 2.5 mg 10/01/25 22:00 10/03/25 05:17 Riociguat [Adempas] PO 10/31/25 21:59 2.5 mg 2.5 Mg Tablet) Q8HR ANAHI Administration Ondansetron HCl 4 mg 10/01/25 15:50 Ondansetron Inj 4 Mg/2 Ml Vial IV PUSH Q4H PRN Nausea Oxycodone HCl 5 mg 10/01/25 16:11 Oxycodone Hcl (*Crx) 5 Mg Tab Ir PO Q4H PRN Pain Rated 7-10 Oxymetazoline HCl 1 spray 10/03/25 21:00 Oxymetazoline Hcl 0.05% Julio 15 Ml Btl (*Bkc) NASAL Q12HR ANAHI Pantoprazole Sodium 40 mg 10/01/25 21:30 10/03/25 08:59 Pantoprazole 40 Mg Tablet PO 40 mg Q12HR ANAHI Administration Perflutren Lipid Microsphere 0 ml 10/02/25 15:44 Perflutren Lipid Microspheres 1.5 Ml Vial Diluted To 10 Ml Total Volume IV PUSH 10/05/25 15:44 ONCE PRN adequate visualization Protocol Pravastatin Sodium 40 mg 10/01/25 21:00 10/02/25 21:27 Pravastatin Sodium 20 Mg Tablet PO 40 mg HS ANAHI Administration Senna 8.6 mg 10/01/25 19:50 10/03/25 09:09 Sennosides 8.6 Mg Tablet PO 8.6 mg BID PRN Administration Constipation Sodium Chloride 1 spray 10/03/25 12:00 10/03/25 12:05 Saline 0.65% Julio Soln 44 Ml Btl NASAL 1 spray Q6HR ANAHI Administration Trazodone HCl 100 mg 10/01/25 21:00 10/02/25 21:27 Trazodone Hcl 50 Mg Tablet PO 100 mg HS ANAHI Administration Valacyclovir HCl 500 mg 10/01/25 21:00 10/02/25 21:27 Valacyclovir Hcl 500 Mg Tablet PO 500 mg HS ANAHI Administration Radiology Results: ITS Impressions Chest X-Ray 10/01/25 14:06 Impression: No acute cardiopulmonary abnormality. Chest CTA 10/01/25 15:20 IMPRESSION: 1. Pulmonary embolism subsegmental pulmonary artery right lower lobe, small thrombus burden. 2: Patchy faint groundglass opacities. Differential diagnosis includes pneumonia, early mild edema, hypersensitivity pneumonitis and nonspecific interstitial pneumonia. Venous Doppler Study 10/03/25 11:57 IMPRESSION: 1. No DVT either leg. Labs Labs: Laboratory Results - last 24 hr 10/02/25 10/02/25 10/02/25 06:54 16:49 21:21 WBC RBC Hgb Hct MCV MCH MCHC RDW Plt Count MPV Immature Gran % (Auto) Neut % (Auto) Lymph % (Auto) [place] % (Auto) Eos % (Auto) Baso % (Auto) Lymph # (Auto) [place] # (Auto) Eos # (Auto) Baso # (Auto) Abs Immat Gran (auto) Absolute Neuts (auto) Absolute Nucleated RBC Total Counted Neutrophils % (Manual) Band Neutrophils % Lymphocytes % (Manual) Monocytes % (Manual) Nucleated RBC % Abs Neuts (Manual) Abs Lymphs (Manual) Abs Monocytes (Manual) Nucleated RBCs Platelet Estimate Hypochromasia Target Cells [place] Cells Schistocytes PT INR Sodium Potassium Chloride Carbon Dioxide Anion Gap BUN Creatinine Estim Creat Clear Calc Estimated GFR Glucose POC Capillary Glucose 222 H 240 H Calcium Magnesium Iron 25 L TIBC 302 % Saturation 8 L Ferritin 67.80 Total Bilirubin Direct Bilirubin AST ALT Alkaline Phosphatase Total Protein Albumin Vitamin B12 556.0 Folate 14.6 10/03/25 10/03/25 10/03/25 04:38 04:38 04:38 WBC 6.2 RBC 2.81 L Hgb 8.7 L Hct 27.5 L MCV 97.9 MCH 31.0 MCHC 31.6 L RDW 17.0 H Plt Count 162 MPV 10.1 Immature Gran % (Auto) Not Reportable Neut % (Auto) Not Reportable Lymph % (Auto) Not Reportable [place] % (Auto) Not Reportable Eos % (Auto) Not Reportable Baso % (Auto) Not Reportable Lymph # (Auto) Not Reportable [place] # (Auto) Not Reportable Eos # (Auto) Not Reportable Baso # (Auto) Not Reportable Abs Immat Gran (auto) Not Reportable Absolute Neuts (auto) Not Reportable Absolute Nucleated RBC Not Reportable Total Counted 100 Neutrophils % (Manual) 73 Band Neutrophils % 7 H Lymphocytes % (Manual) 10 L Monocytes % (Manual) 10 H Nucleated RBC % Not Reportable Abs Neuts (Manual) 4.96 Abs Lymphs (Manual) 0.62 L Abs Monocytes (Manual) 0.62 Nucleated RBCs 1 Platelet Estimate Slightly decreased Hypochromasia Occasional Target Cells Occasional Tracy Cells 2+ Schistocytes 1+ PT 19.0 H INR 1.6 Sodium Cancelled 134 L Potassium Cancelled 4.3 Chloride Cancelled Carbon Dioxide Anion Gap BUN Creatinine Estim Creat Clear Calc Estimated GFR Glucose POC Capillary Glucose Calcium Magnesium Iron TIBC % Saturation Ferritin Total Bilirubin Direct Bilirubin AST ALT Alkaline Phosphatase Total Protein Albumin Vitamin B12 Folate 10/03/25 10/03/25 10/03/25 04:38 04:38 04:38 WBC RBC Hgb Hct MCV MCH MCHC RDW Plt Count MPV Immature Gran % (Auto) Neut % (Auto) Lymph % (Auto) [place] % (Auto) Eos % (Auto) Baso % (Auto) Lymph # (Auto) [place] # (Auto) Eos # (Auto) Baso # (Auto) Abs Immat Gran (auto) Absolute Neuts (auto) Absolute Nucleated RBC Total Counted Neutrophils % (Manual) Band Neutrophils % Lymphocytes % (Manual) Monocytes % (Manual) Nucleated RBC % Abs Neuts (Manual) Abs Lymphs (Manual) Abs Monocytes (Manual) Nucleated RBCs Platelet Estimate Hypochromasia Target Cells [place] Cells Schistocytes PT INR Sodium Potassium Chloride 108 H Carbon Dioxide Cancelled 17 L Anion Gap Cancelled 9 BUN Cancelled Creatinine Estim Creat Clear Calc Estimated GFR Glucose POC Capillary Glucose Calcium Magnesium Iron TIBC % Saturation Ferritin Total Bilirubin Direct Bilirubin AST ALT Alkaline Phosphatase Total Protein Albumin Vitamin B12 Folate 10/03/25 10/03/25 10/03/25 04:38 04:38 04:38 WBC RBC Hgb Hct MCV MCH MCHC RDW Plt Count MPV Immature Gran % (Auto) Neut % (Auto) Lymph % (Auto) [place] % (Auto) Eos % (Auto) Baso % (Auto) Lymph # (Auto) [place] # (Auto) Eos # (Auto) Baso # (Auto) Abs Immat Gran (auto) Absolute Neuts (auto) Absolute Nucleated RBC Total Counted Neutrophils % (Manual) Band Neutrophils % Lymphocytes % (Manual) Monocytes % (Manual) Nucleated RBC % Abs Neuts (Manual) Abs Lymphs (Manual) Abs Monocytes (Manual) Nucleated RBCs Platelet Estimate Hypochromasia Target Cells [place] Cells Schistocytes PT INR Sodium Potassium Chloride Carbon Dioxide Anion Gap BUN 74 H D Creatinine Cancelled 2.11 H Estim Creat Clear Calc Cancelled 17 Estimated GFR Cancelled Glucose POC Capillary Glucose Calcium Magnesium Iron TIBC % Saturation Ferritin Total Bilirubin Direct Bilirubin AST ALT Alkaline Phosphatase Total Protein Albumin Vitamin B12 Folate 10/03/25 10/03/25 10/03/25 04:38 04:38 04:38 WBC RBC Hgb Hct MCV MCH MCHC RDW Plt Count MPV Immature Gran % (Auto) Neut % (Auto) Lymph % (Auto) [place] % (Auto) Eos % (Auto) Baso % (Auto) Lymph # (Auto) [place] # (Auto) Eos # (Auto) Baso # (Auto) Abs Immat Gran (auto) Absolute Neuts (auto) Absolute Nucleated RBC Total Counted Neutrophils % (Manual) Band Neutrophils % Lymphocytes % (Manual) Monocytes % (Manual) Nucleated RBC % Abs Neuts (Manual) Abs Lymphs (Manual) Abs Monocytes (Manual) Nucleated RBCs Platelet Estimate Hypochromasia Target Cells [place] Cells Schistocytes PT INR Sodium Potassium Chloride Carbon Dioxide Anion Gap BUN Creatinine Estim Creat Clear Calc Estimated GFR 22 L Glucose Cancelled 173 H POC Capillary Glucose Calcium Cancelled 8.4 Magnesium Cancelled Iron TIBC % Saturation Ferritin Total Bilirubin Direct Bilirubin AST ALT Alkaline Phosphatase Total Protein Albumin Vitamin B12 Folate 10/03/25 10/03/25 10/03/25 04:38 04:38 04:38 WBC RBC Hgb Hct MCV MCH MCHC RDW Plt Count MPV Immature Gran % (Auto) Neut % (Auto) Lymph % (Auto) [place] % (Auto) Eos % (Auto) Baso % (Auto) Lymph # (Auto) [place] # (Auto) Eos # (Auto) Baso # (Auto) Abs Immat Gran (auto) Absolute Neuts (auto) Absolute Nucleated RBC Total Counted Neutrophils % (Manual) Band Neutrophils % Lymphocytes % (Manual) Monocytes % (Manual) Nucleated RBC % Abs Neuts (Manual) Abs Lymphs (Manual) Abs Monocytes (Manual) Nucleated RBCs Platelet Estimate Hypochromasia Target Cells [place] Cells Schistocytes PT INR Sodium Potassium Chloride Carbon Dioxide Anion Gap BUN Creatinine Estim Creat Clear Calc Estimated GFR Glucose POC Capillary Glucose Calcium Magnesium 2.3 Iron TIBC % Saturation Ferritin Total Bilirubin 0.7 0.6 Direct Bilirubin 0.0 AST 40 H 32 ALT 27 Alkaline Phosphatase Total Protein Albumin Vitamin B12 Folate 10/03/25 10/03/25 10/03/25 04:38 04:38 04:38 WBC RBC Hgb Hct MCV MCH MCHC RDW Plt Count MPV Immature Gran % (Auto) Neut % (Auto) Lymph % (Auto) [place] % (Auto) Eos % (Auto) Baso % (Auto) Lymph # (Auto) [place] # (Auto) Eos # (Auto) Baso # (Auto) Abs Immat Gran (auto) Absolute Neuts (auto) Absolute Nucleated RBC Total Counted Neutrophils % (Manual) Band Neutrophils % Lymphocytes % (Manual) Monocytes % (Manual) Nucleated RBC % Abs Neuts (Manual) Abs Lymphs (Manual) Abs Monocytes (Manual) Nucleated RBCs Platelet Estimate Hypochromasia Target Cells [place] Cells Schistocytes PT INR Sodium Potassium Chloride Carbon Dioxide Anion Gap BUN Creatinine Estim Creat Clear Calc Estimated GFR Glucose POC Capillary Glucose Calcium Magnesium Iron TIBC % Saturation Ferritin Total Bilirubin Direct Bilirubin AST ALT 28 Alkaline Phosphatase 99 105 Total Protein 6.7 6.3 Albumin 3.7 Vitamin B12 Folate 10/03/25 10/03/25 10/03/25 04:38 08:35 11:01 WBC RBC Hgb Hct MCV MCH MCHC RDW Plt Count MPV Immature Gran % (Auto) Neut % (Auto) Lymph % (Auto) [place] % (Auto) Eos % (Auto) Baso % (Auto) Lymph # (Auto) [place] # (Auto) Eos # (Auto) Baso # (Auto) Abs Immat Gran (auto) Absolute Neuts (auto) Absolute Nucleated RBC Total Counted Neutrophils % (Manual) Band Neutrophils % Lymphocytes % (Manual) Monocytes % (Manual) Nucleated RBC % Abs Neuts (Manual) Abs Lymphs (Manual) Abs Monocytes (Manual) Nucleated RBCs Platelet Estimate Hypochromasia Target Cells [place] Cells Schistocytes PT INR Sodium Potassium Chloride Carbon Dioxide Anion Gap BUN Creatinine Estim Creat Clear Calc Estimated GFR Glucose POC Capillary Glucose 141 H 182 H Calcium Magnesium Iron TIBC % Saturation Ferritin Total Bilirubin Direct Bilirubin AST ALT Alkaline Phosphatase Total Protein Albumin 3.6 Vitamin B12 Folate Quality VTE Prophylaxis VTE prophylaxis: pharmacologic ordered
[2025-10-03] MEDS: INSULIN ASPART (*BKC) 100 UNITS/ML SUB-Q (17:55)
--- NOTE | 2025-10-03 20:48 | PCRCNOTE ---
Patient stated thst she will not take anymore neb [place]. Rn notified.
--- NOTE | 2025-10-03 21:16 | PM.CNPUL ---
Assessment and Plan Assessment and plan (1) Pneumonia due to COVID-19 virus: Code(s): U07.1 - COVID-19; J12.89 - Other viral pneumonia Status: Acute Assessment and Plan: 10/01/25 PCR is positive for SARS-CoV-2, she had symptoms for may be a week before coming in because this happened around [facility] with increasing cough, sputum with mild hemoptysis, shortness of breath, small increase in troponin. She is on remdesivir and dexamethasone, oxygen, will not take bronchodilator because she says is does not feel good in her mouth with scattered sores, probable aphthous ulcers consistent with her viral infection. (2) Chronic hypoxic respiratory failure, on home oxygen therapy: Code(s): J96.11 - Chronic respiratory failure with hypoxia; Z99.81 - Dependence on supplemental oxygen Status: Acute Assessment and Plan: She has worn oxygen since diagnosed with lung COVID August 2020, she is currently on 3 L around the clock at home, on admission saturation was lower on her usual O2 and she is currently on higher flow between 5 and 7 L with adequate oxygenation, saturation 95%. (3) Pulmonary embolism of right lower lobe: Code(s): I26.99 - Other pulmonary embolism without acute cor pulmonale Status: Acute Assessment and Plan: CTA on 10/01 shows small clot burden to the vessels of the right lower lobe. She has chronic right heart failure, echo is worse compared to February of 2024 coma she is on oral anticoagulants, Eliquis, initially was on heparin. She is having some mild epistaxis. She has scant blood in both nostrils. SHe uses O2 at home, has not had this problems before. She is on humdified O2. Add [place] gel to nares. (4) Pulmonary arterial hypertension: Code(s): I27.21 - Secondary pulmonary arterial hypertension Status: Acute Assessment and Plan: Echo this admission shows right ventricular systolic pressure 99, this is a chronic problem, in February 2024 RVSP was 79 mmHg, secondary and due to untreated HUSSAIN plus RA, long COVID. She wears O2 at home 2 L /min all the time. does not want sleep issues addressed. She is not active at home, does not want testing related to O2, sleep. Plan plan: [place] gel for nares for epistaxis to prevent dryness. She has Afrin which is appropriate to decrease bleeding from nares. Continue Rx for COVID pneumonia; remdesivir and dexamethasone. She does not have severe oxygen issues, normally is on 3 L at home for long COVID and now is on 5-7 L with a saturation 95%. History of Present Illness History of Present Illness Consult date: 10/03/25 Chief complaint: NSTEMI/PE/COVID with Hypoxia Narrative: pt was seen Oct 03, 2025 at 21:[address] [place] [address] NEW: Sayra Glass is an 85-year-old woman who lives at [facility], has been there a year after an episode of pancreatitis. 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 Her primary is Dr. Diaz, he is in charge of her O2 and all her medications. She does wear O2 3 L/min around the clock. She was admitted Dec with shortness of breath, productive cough mostly white with scant blood, fatigue, chest soreness, maybe costochondritis, mouth sores, started after the when she was eating with 15 people. She is not aware of being with any sick contacts. She has COVID now, and had it aslp Aug 2020 was seen in ER here. She had (-) Fever, (+) Nausea, does have a history of CHF, on Eliquis. She has a previous history of pulmonary embolism, on anticoagulation with initially warfarin, now on Eliquis. She is complaining of constipation, has irritable bowel, has not had a bowel movement since Tuesday. This is a little long for her to go without a BM. She s complaining of bleeding from both nostrils. She tells me she is not taking more nebulized bronchodilator because it hurts her mouth. She has a few white lesions in her mouth, appears to be after this ulcers. She does not have bronchospasm and never smoked, so stopping the bronchodilator therapy is not a problem. Her admission testing showed a (+) PCR of COVID, and her CTA showed subsegmental pulmonary emboli to the artery in the right lower lobe with a small thrombus burden and no right heart failure. She was started on remdesivir and dexamethasone, O2 at 5 L/min, echo shows severe pulmonary hypertension with an estimated pulmonary arterial pressure of 99, right ventricle is severely enlarged, right ventricular systolic function severely reduced. The left ventricle is hyperdynamic with EF greater than 70% and increased left ventricular wall thickness. She has not had leg swelling at home. She does not know if she snores, she sleeps poorly, goes to bed after 3 in the morning and wakens 4 hours later, says she does not nap during the day. Rarely has dreams. Denies waking at night to urinate. She really does not have any interested at all in revisited problems with sleep disordered breathing, really stops me from talking about it at all. She tells me that her son lost his 2 and a half years ago, really hard on the patient who did not want to go into [facility]. She does not like the food, the staff, the living arrangement. She does not ionvolve her self with all the activities, stays in her room more often than not. DATA * 10/01/2025; positive SARS-CoV-2 PCR; negative influenza A and B, RSV. * 10/01/25 CXR ; No acute cardiopulmonary abnormality. * 10/01/25 CTA; IMPRESSION: 1. Pulmonary embolism subsegmental pulmonary artery right lower lobe, small thrombus burden. 2: Patchy faint groundglass opacities. Differential diagnosis includes pneumonia, early mild edema, hypersensitivity pneumonitis and nonspecific interstitial pneumonia. * 10/03/25; venous dopplers ; No DVT either leg. * wbc 6.2 k, 77% neutrophils, 7% bands * 10/01/25 echo; Complete two-dimensional, color flow and Doppler transthoracic echocardiogram is performed. 2. Left ventricular chamber dimension is normal. 3. D shaped interventricular septum during systole and diastole suggestive of pressure and volume overload of right ventricle. 4. There is severe concentric increased left ventricular wall thickness. 5. Left ventricular systolic function is hyperdynamic, estimated at >70. 6. The left ventricular diastolic function is grade I diastolic dysfunction. 7. E/e' 12 is mildly elevated. 8. Right ventricular chamber dimension is severely enlarged. 9. Right ventricular systolic function is severely reduced and with abnormal TAPSE 1.0 cm. 10. Left atrial chamber dimension is mildly enlarged. 11. Right atrial chamber dimension is moderately enlarged. 12. There is moderate aortic valve sclerosis. 13. There is mild aortic valve stenosis with a peak velocity of 253 cm/s,mean gradient of 14 mmHg, and aortic valve area of 1.5 cm2. 14. The mitral valve has a moderately calcified annulus. 15. There is severe tricuspid valve regurgitation. 16. Severe pulmonary hypertension, estimated pulmonary arterial systolic pressure is 99 mmHg. 17. There is trivial pericardial effusion. Review of Systems Review of Systems: Diabetes mellitus Longstanding insomnia, takes trazodone and clonazepam Long COVID from 2019, started using oxygen 3 L at the time. All systems reviewed & are unremarkable except as noted in HPI and below (HPI. ) [facility] Past Medical History Medical History (Updated 10/03/25 @ 23:08 by Marley Nuñez MD) Pulmonary hypertension Hypertension 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 Lumbar stenosis Pancreatitis CHF (congestive heart failure) Pulmonary embolism Chronic respiratory failure Elevated liver enzymes Upper abdominal pain Ventricular bigeminy Insomnia Degenerative lumbar disc Family History Family History Sibling Dementia Father Acute myocardial infarction Mother Diabetes mellitus Social History Social History Social History: POLST signed 12/12/24 reports Yes CPR with selective treatment Smoking status: Never smoker Second hand tobacco smoke exposure: Yes Alcohol intake: never Substance use: never Substance use type: does not use Lack of Transportation: No Lack of Food: Never True Current Housing: I Have Housing Concerned About Future Housing: No Difficulty Paying Gas/Electric Bills: No Difficulty Paying for Meds: No Currently Unemployed: No Education: High School Diploma/GED Difficulty w/ Childcare or Family Care: No Living arrangements: assisted living Additional living arrangements comments: [facility] Spiritual care concerns: No Meds Home Medications and Allergies Home Medications ?Medication ?Instructions ?Recorded ?Confirmed ?Type duloxetine 60 mg capsule,delayed 60 mg PO DAILY 03/20/24 10/01/25 History release leflunomide 20 mg tablet 20 mg PO DAILY 03/20/24 10/01/25 History metformin 500 mg tablet 500 mg PO DAILY@0800 03/20/24 10/01/25 History metoprolol succinate 25 mg 25 mg PO HS 03/20/24 10/01/25 History tablet,extended release 24 hr pravastatin 40 mg tablet 40 mg PO HS 03/20/24 10/01/25 History trazodone 100 mg tablet 100 mg PO HS 03/20/24 10/01/25 History nitrofurantoin 100 mg PO Q12H 3 days #6 caps 03/24/24 10/01/25 Rx monohydrate/macrocrystals 100 mg capsule (Macrobid) clonazepam 0.5 mg tablet See Rx Instructions .Route .COMPLEX 08/02/24 10/01/25 History fexofenadine 180 mg tablet 180 mg PO DAILY 08/02/24 10/01/25 History losartan 100 mg tablet 100 mg PO DAILY 08/02/24 10/01/25 History amlodipine 5 mg tablet (Norvasc) 5 mg PO DAILY #60 tabs 08/08/24 10/01/25 Rx amoxicillin 875 mg-potassium 1 tablet PO Q12H #6 tabs 08/08/24 10/01/25 Rx clavulanate 125 mg tablet methocarbamol 750 mg tablet 750 mg PO TID #30 tabs 05/10/25 10/01/25 Rx acetaminophen 500 mg capsule 1,000 mg (2 x 500 mg) PO Q6H PRN 05/20/25 10/01/25 Rx pain #30 caps diclofenac sodium 1 % topical gel 2 g topical QID #50 grams 05/20/25 10/01/25 Rx lidocaine 4 % topical patch 1 patch topical DAILY PRN pain #10 05/20/25 10/01/25 Rx ea oxycodone 5 mg capsule 5 mg PO Q8H PRN pain 5 days #7 caps 05/20/25 10/01/25 Rx apixaban 2.5 mg tablet (Eliquis) 5 mg PO Q12HR 10/01/25 10/01/25 History buspirone 30 mg tablet 30 mg PO BID 10/01/25 10/01/25 History cetirizine 10 mg tablet 10 mg PO HS 10/01/25 10/01/25 History ferrous sulfate 325 mg (65 mg 325 mg PO .COMPLEX 10/01/25 10/01/25 History iron) tablet furosemide 20 mg tablet 20 mg PO .COMPLEX 10/01/25 10/01/25 History hydroxyzine HCl 10 mg tablet 10 mg PO TID PRN anxiety 10/01/25 10/01/25 History loperamide 2 mg capsule 2 mg PO Q6H PRN loose stool 10/01/25 10/01/25 History menthol 0.44 %-zinc oxide 20.6 % 1 applic topical TID 10/01/25 10/01/25 History topical ointment (Calmoseptine) pantoprazole 40 mg tablet,delayed 40 mg PO Q12H 10/01/25 10/01/25 History release riociguat 2.5 mg tablet (Adempas) 2.5 mg PO TID 10/01/25 10/01/25 History sennosides 8.6 mg tablet (senna) 8.6 mg PO BID PRN constipation 10/01/25 10/01/25 History sulfamethoxazole 400 1 tablet PO HS 10/01/25 10/01/25 History mg-trimethoprim 80 mg tablet valacyclovir 500 mg tablet 500 mg PO HS 10/01/25 10/01/25 History zolpidem 5 mg tablet 5 mg PO HS 10/01/25 10/01/25 History Allergies Allergy/AdvReac Type Severity Reaction Status Date / Time adhesive tape Allergy Mild Rash Verified 10/01/25 22:08 Vital Signs Vital Signs - 24 hr 10/02/25 22:00 10/03/25 00:00 10/03/25 00:00 Temperature Pulse Rate 94 96 Respiratory Rate Blood Pressure Pulse Oximetry 94 Oxygen Delivery High Flow Therapy with Na Oxygen Flow Rate 7 10/03/25 00:54 10/03/25 02:00 10/03/25 04:00 Temperature 36.6 C Pulse Rate 93 94 105 H Respiratory Rate 22 H Blood Pressure 119/69 Pulse Oximetry 97 Oxygen Delivery Oxygen Flow Rate 10/03/25 04:00 10/03/25 04:00 10/03/25 06:00 Temperature 36.3 C L Pulse Rate 102 H 94 Respiratory Rate 16 Blood Pressure 136/54 L Pulse Oximetry 94 94 Oxygen Delivery High Flow Therapy with Na Oxygen Flow Rate 7 10/03/25 08:00 10/03/25 08:00 10/03/25 08:00 Temperature 36.1 C L Pulse Rate 96 96 Respiratory Rate 18 Blood Pressure 123/75 Pulse Oximetry 100 93 Oxygen Delivery High Flow Therapy with Na Oxygen Flow Rate 7 10/03/25 09:44 10/03/25 10:00 10/03/25 12:00 Temperature 36.1 C L Pulse Rate 100 97 Respiratory Rate 22 H Blood Pressure 154/72 H Pulse Oximetry 98 Oxygen Delivery Nasal Cannula Oxygen Flow Rate 6 10/03/25 12:30 10/03/25 12:30 10/03/25 14:00 Temperature Pulse Rate 92 95 Respiratory Rate Blood Pressure Pulse Oximetry 95 Oxygen Delivery Nasal Cannula Oxygen Flow Rate 7 10/03/25 16:00 10/03/25 16:00 10/03/25 16:00 Temperature 37.2 C Pulse Rate 92 98 Respiratory Rate 24 H Blood Pressure 154/74 H Pulse Oximetry 95 98 Oxygen Delivery Nasal Cannula Oxygen Flow Rate 7 10/03/25 18:00 10/03/25 20:00 10/03/25 20:48 Temperature 36.8 C Pulse Rate 92 93 Respiratory Rate 24 H Blood Pressure 138/70 Pulse Oximetry 97 95 Oxygen Delivery High Flow Nasal Cannula Oxygen Flow Rate 7 Exam Narrative: GEN: Alert, oriented, not in distress. She is able to speak clearly, good hearing, appears depressed. High-flow oxygen 7 L a minute saturation 95% Temperature 36.8? pulse 93 respirations 24 blood pressure 138/70 weight 74.7 kg HEENT: pupils are equal, EOMI, symmetrical face; oral membranes moist, Mallampati II airway, few small white raised lesions on mucosa one on right lower jaw NECK: Trachea is midline CHEST: Equal air entry, symmetric excursion, equal expansion, few crackles in bases, no wheezes CV: Regular S1S2 no m/g/r ABD : (+) bowel sounds Extremities : no clubbing, cyanosis, or edema. No calf tenderness. Good capillary refill. Skin is warm. PSYCH: normal thought and speech, gait is not tested. . Results Laboratory Findings 10/03/25 04:38 10/03/25 04:38 ABG, PT/INR, D-dimer: PT/INR, D-dimer PT 19.0 Seconds (11.1-14.7) H 10/03/25 04:38 INR 1.6 10/03/25 04:38 D-Dimer 0.82 ug/mL (<0.48) H 10/01/25 13:42 Abnormal lab findings: Abnormal Labs 10/01/25 10/01/25 10/01/25 13:42 16:41 17:50 RBC 3.12 L Hgb 9.7 L Hct 30.5 L MCHC 31.8 L RDW 17.0 H Plt Count 136 L D Neutrophils % (Manual) 894 H Band Neutrophils % 7 H Lymphocytes % (Manual) 5 L Monocytes % (Manual) Abs Neuts (Manual) 81.09 H Abs Lymphs (Manual) 0.45 L PT 21.2 H APTT 58.6 H D-Dimer 0.82 H Sodium Chloride 109 H Carbon Dioxide 21 L BUN 53 H D Creatinine 1.88 H Estimated GFR 26 L Glucose POC Capillary Glucose 113 H Calcium Iron % Saturation AST 44 H Troponin I 0.410 H* 0.379 H* NT-Pro-B Natriuret Pep 87263 H SARS-CoV-2 RNA (RT-PCR) Positive A 10/01/25 10/01/25 10/02/25 21:37 22:48 06:54 RBC 2.89 L Hgb 8.9 L Hct 28.1 L MCHC 31.7 L RDW 16.9 H Plt Count 141 L Neutrophils % (Manual) 80 H Band Neutrophils % 10 H Lymphocytes % (Manual) 6 L Monocytes % (Manual) Abs Neuts (Manual) Abs Lymphs (Manual) 0.37 L PT APTT > 200.0 H* 42.8 H D-Dimer Sodium 136 L Chloride 110 H Carbon Dioxide 19 L BUN 60 H Creatinine 1.79 H Estimated GFR 27 L Glucose 160 H POC Capillary Glucose 278 H Calcium 8.2 L Iron 25 L % Saturation 8 L AST 38 H Troponin I NT-Pro-B Natriuret Pep SARS-CoV-2 RNA (RT-PCR) 10/02/25 10/02/25 10/02/25 07:47 12:20 16:49 RBC Hgb Hct MCHC RDW Plt Count Neutrophils % (Manual) Band Neutrophils % Lymphocytes % (Manual) Monocytes % (Manual) Abs Neuts (Manual) Abs Lymphs (Manual) PT APTT D-Dimer Sodium Chloride Carbon Dioxide BUN Creatinine Estimated GFR Glucose POC Capillary Glucose 146 H 208 H 222 H Calcium Iron % Saturation AST Troponin I NT-Pro-B Natriuret Pep SARS-CoV-2 RNA (RT-PCR) 10/02/25 10/03/25 10/03/25 21:21 04:38 08:35 RBC 2.81 L Hgb 8.7 L Hct 27.5 L MCHC 31.6 L RDW 17.0 H Plt Count Neutrophils % (Manual) Band Neutrophils % 7 H Lymphocytes % (Manual) 10 L Monocytes % (Manual) 10 H Abs Neuts (Manual) Abs Lymphs (Manual) 0.62 L PT 19.0 H APTT D-Dimer Sodium 134 L Chloride 108 H Carbon Dioxide 17 L BUN 74 H D Creatinine 2.11 H Estimated GFR 22 L Glucose 173 H POC Capillary Glucose 240 H 141 H Calcium Iron % Saturation AST 40 H Troponin I NT-Pro-B Natriuret Pep SARS-CoV-2 RNA (RT-PCR) 10/03/25 10/03/25 11:01 17:52 RBC Hgb Hct MCHC RDW Plt Count Neutrophils % (Manual) Band Neutrophils % Lymphocytes % (Manual) Monocytes % (Manual) Abs Neuts (Manual) Abs Lymphs (Manual) PT APTT D-Dimer Sodium Chloride Carbon Dioxide BUN Creatinine Estimated GFR Glucose POC Capillary Glucose 182 H 219 H Calcium Iron % Saturation AST Troponin I NT-Pro-B Natriuret Pep SARS-CoV-2 RNA (RT-PCR)
[2025-10-03] MEDS: PRAVASTATIN SODIUM 20 MG TABLET 40 MG PO (21:29)
[2025-10-03] MEDS: OXYMETAZOLINE HCL 0.05% NAS 15 ML BTL (*BKC) 1 SPRAY NASAL (21:29)
[2025-10-03] MEDS: ACETAMINOPHEN 325 MG TABLET 650 MG PO (21:30)
[2025-10-03] MEDS: LORATADINE 10 MG TABLET PO (21:30)
[2025-10-03] MEDS: REMDESIVIR 100 MG/NS 250 ML 100 MG/250 ML BAG 250 MG IVPB (21:31)
[2025-10-04] VITALS (17 sets, daily range): BP systolic 114–151; BP diastolic 65–76; PULSE 89–99; RESP 23–25; TEMP 36.2–36.7; O2SAT 92–96
[2025-10-04] MEDS: SALINE 0.65% NAS SOLN 44 ML BTL 1 SPRAY NASAL ×5 (06:28→23:03)
[2025-10-04] MEDS: IPRATROPIUM 0.5 MG/ALBUTEROL SULFATE 2.5 MG (BASE) AMPUL.NEB 3 ML INHALATION (07:45)
[2025-10-04 09:24] LABS: Hematocrit 27.3 % (37.0-47.0); Hemoglobin 8.9 g/dL (12.0-15.0); Immature Granulocyte Percent A 0.9 % (0-0.5); Lymphocytes Absolute Auto 0.74 K/mm3 (0.9-3.2); Mean Corpuscular HGB Conc 32.6 g/dl (32-36); Mean Corpuscular Hemoglobin 31.2 pg (26-34); Mean Corpuscular Volume 95.8 fl (80-100); Nucleated Red Blood Cells Absolute Auto 0.040 K/mm3 (0.0-0.012); Nucleated Red Blood Cells Perc 0.5 % (0.0-0.2); Platelet Count Result 160 k/mm3 (150-375); Red Blood Count 2.85 M/mm3 (4.2-5.4); White Blood Count 7.7 K/mm3 (4.5-10.0)
[2025-10-04 09:48] LABS: Alanine Aminotransferase 24 U/L (6-35); Albumin Level 3.5 g/dL (3.5-5.1); Alkaline Phosphatase 90 U/L (38-126); Anion Gap 6 mmol/L (4-12); Aspartate Amino Transferase 41 U/L (14-36); Bilirubin,Total 0.6 mg/dL (0.2-1.3); Blood Urea Nitrogen 78 mg/dL (7-17); Calcium 8.5 mg/dL (8.4-10.2); Carbon Dioxide 19 mmol/L (22-30); Chloride 110 mmol/L (98-107); Estimated CRCL calculation 18 ml/min; Estimated Glomerular Filt Rate 23; Glucose 128 mg/dL (65-110); Magnesium 2.3 mg/dL (1.6-2.3); Potassium 4.0 mmol/L (3.4-5.0); Sodium 135 mmol/L (137-145); Total Protein 6.4 g/dL (6.3-8.2)
[2025-10-04 09:59] LABS: Hemoglobin A1C 6.5 % (<5.7)
--- NOTE | 2025-10-04 10:12 | PCPTNOTE ---
Pt adamantly refused therapy this date due to being too tired and worn out. Educated pt on importance of therapy to regain strength and endurance and pt continued to refuse. Pt states that she will do it another day, but not today.
[2025-10-04] MEDS: OXYMETAZOLINE HCL 0.05% NAS 15 ML BTL (*BKC) 1 SPRAY NASAL ×2 (10:35→21:46)
[2025-10-04] MEDS: FERROUS SULFATE 325 MG TABLET PO (10:35)
[2025-10-04] MEDS: DOCUSATE SODIUM 100 MG CAPSULE PO ×2 (10:35→17:32)
[2025-10-04] MEDS: PANTOPRAZOLE 40 MG TABLET PO ×2 (10:35→21:45)
[2025-10-04] MEDS: LEFLUNOMIDE 20 MG TABLET PO (10:35)
[2025-10-04] MEDS: APIXABAN 5 MG TABLET PO ×2 (10:35→21:44)
[2025-10-04] MEDS: guaiFENesin 12 HR 600 MG TABCR 1200 MG PO ×2 (10:36→21:45)
[2025-10-04] MEDS: DULoxetine HCL 60 MG CAPSULE.DR PO (10:36)
[2025-10-04] MEDS: FUROSEMIDE 20 MG TABLET PO (10:36)
--- NOTE | 2025-10-04 13:01 | P.PNIM_ITS ---
Assessment and Plan Assessment and Plan (1) COVID-19: Code(s): U07.1 - COVID-19 Status: Acute (2) Pulmonary embolism of right lower lobe: Code(s): I26.99 - Other pulmonary embolism without acute cor pulmonale Status: Acute (3) Elevated troponin: Code(s): R79.89 - Other specified abnormal findings of blood chemistry Status: Acute (4) Diabetes: Code(s): E11.9 - Type 2 diabetes mellitus without complications Status: Chronic (5) Acute kidney injury superimposed on CKD: Code(s): N17.9 - Acute kidney failure, unspecified; N18.9 - Chronic kidney disease, unspecified Status: Acute (6) CHF (congestive heart failure): Code(s): I50.9 - Heart failure, unspecified Status: Acute (7) Hypertension: Code(s): I10 - Essential (primary) hypertension Status: Acute Plan 85-year-old with past medical history of pulmonary embolism, diabetes, pancreatitis, hypertension, and congestive heart failure, chronic respiratory failure on 3 L nasal cannula at home presented with worsening shortness of breath, feeling extremely weak.According to the son patient has a history of undissolve multiple PEs and sees a metal tube cutter at [place]. Tested positive for COVID.CT shows Pulmonary embolism subsegmental pulmonary artery right lower lobe, small thrombus burden and Patchy faint groundglass opacities. 1. Acute on chronic hypoxic respiratory failure: Currently patient is on 7 L of O2 support, home O2 is 3 L at baseline Continue with remdesivir Continue with IV dexamethasone Pulmonary consult appreciated Appreciate oncology help Patient has been changed to Eliquis again due to small clot burden Echo reviewed Epistaxis has improved Continue with scheduled nasal saline c/w afrin, ayr gels Humidified oxygen Continue with DuoNebs DVT study in bilateral leg is negative 2. Eyal I on pre-existing CKD: Monitor kidney function Avoid nephrotoxins Currently on Lasix Will consider renal consult if continues to worsen Received contrast with CTA chest on admission Renal USG unremarkable 3. Continue with other home medications 4. Constipation: improved 5. Code status: Full 6. Disposition: Pending improvement Time Spent With Patient Time with patient: 25 - 35 minutes Subjective Date/time seen: 10/04/25 13:01 Interval history: no major change clinically Review of Systems Review of Systems: Ongoing SOB Exam Narrative: General: Feeling short of breath Respiratory: Diminished BS BL no wheezes or rales Cardiovascular: Regular rate and rhythm, normal S1-S2. Abdomen: Soft, round, no pulsatile masses, nondistended and nontender. Bowel sounds present. Extremities: No cyanosis, clubbing, or edema present. Neuro: Alert and orientated x 4. PERRLA. Skin: Warm, dry, and intact, without rash, erythema, or lesion. Psych: pleasant, cooperative, Objective Data Vital Signs Vital Signs: Vital Signs - 24 hr 10/03/25 14:00 10/03/25 16:00 10/03/25 16:00 Temperature Pulse Rate 95 92 Respiratory Rate Blood Pressure Pulse Oximetry 95 Oxygen Delivery Nasal Cannula Oxygen Flow Rate 7 10/03/25 16:00 10/03/25 18:00 10/03/25 20:00 Temperature 99 F 98.3 F Pulse Rate 98 92 93 Respiratory Rate 24 H 24 H Blood Pressure 154/74 H 138/70 Pulse Oximetry 98 97 Oxygen Delivery Oxygen Flow Rate 10/03/25 20:00 10/03/25 20:00 10/03/25 20:48 Temperature Pulse Rate 98 Respiratory Rate Blood Pressure Pulse Oximetry 95 95 Oxygen Delivery Nasal Cannula High Flow Nasal Cannula Oxygen Flow Rate 7 7 10/03/25 22:00 10/04/25 00:00 10/04/25 00:00 Temperature 97.8 F Pulse Rate 95 95 Respiratory Rate 24 H Blood Pressure 141/76 H Pulse Oximetry 96 94 Oxygen Delivery Nasal Cannula Oxygen Flow Rate 7 10/04/25 00:00 10/04/25 02:00 10/04/25 04:00 Temperature 97.1 F L Pulse Rate 94 92 99 Respiratory Rate 24 H Blood Pressure 151/76 H Pulse Oximetry 94 Oxygen Delivery Oxygen Flow Rate 10/04/25 04:00 10/04/25 04:00 10/04/25 06:00 Temperature Pulse Rate 94 94 Respiratory Rate Blood Pressure Pulse Oximetry 95 Oxygen Delivery Nasal Cannula Oxygen Flow Rate 7 10/04/25 07:57 10/04/25 08:00 10/04/25 10:00 Temperature 97.5 F L Pulse Rate 99 95 89 Respiratory Rate 23 H Blood Pressure 143/65 H Pulse Oximetry 93 Oxygen Delivery Oxygen Flow Rate 10/04/25 10:00 10/04/25 10:54 10/04/25 11:47 Temperature 97.8 F Pulse Rate 95 Respiratory Rate 25 H Blood Pressure 141/73 H Pulse Oximetry 96 96 92 Oxygen Delivery High Flow Nasal Cannula High Flow Nasal Cannula Oxygen Flow Rate 5 3 Intake/Output Intake/Output: Intake & Output 10/01/25 10/02/25 10/03/25 10/04/25 23:59 23:59 23:59 23:59 Intake Total 834 3443.2 1700 480 Output Total 484 685 9313 Balance 834 2973.2 850 -620 Meds/Results Medications: Active Medications Generic Name Dose Route Start Last Admin Trade Name Freq PRN Reason Stop Dose Admin Acetaminophen 650 mg 10/01/25 15:50 10/03/25 21:30 Acetaminophen 325 Mg Tablet PO 650 mg Q4H PRN Administration Mild Pain (1-3) or Fever Albuterol/Ipratropium 3 ml 10/01/25 20:00 10/04/25 11:31 Ipratropium 0.5 Mg/Albuterol Sulfate 2.5 Mg (Base) Ampul.Neb 3 Ml INHALATION Not Given Q6HRT ANAHI Apixaban 5 mg 10/02/25 21:00 10/04/25 10:35 Apixaban 5 Mg Tablet PO 5 mg Q12HR ANAHI Administration Buspirone HCl 30 mg 10/02/25 09:00 10/04/25 10:35 Buspirone Hcl 10 Mg Tablet PO 30 mg BID ANAHI Administration Dexamethasone 6 mg 10/02/25 08:00 10/04/25 10:35 Dexamethasone 2 Mg Tablet PO 10/11/25 08:01 6 mg DAILY@0800 ANAHI Administration Dextrose 12.5 gm 10/01/25 16:13 Dextrose 50% 25 Gm/50 Ml Syringe IV PUSH PRN PRN Hypoglycemia Protocol Docosanol 1 applic 10/01/25 21:00 10/04/25 12:57 Docosanol 10% Cream 2 Gm TOPICAL 1 applic 5 TIMES DAILY ANAHI Administration Docusate Sodium 100 mg 10/01/25 17:00 10/04/25 10:35 Docusate Sodium 100 Mg Capsule PO 100 mg BID ANAHI Administration Duloxetine HCl 60 mg 10/02/25 09:00 10/04/25 10:36 Duloxetine Hcl 60 Mg Capsule.Dr PO 60 mg DAILY ANAHI Administration Ferrous Sulfate 325 mg 10/02/25 09:00 10/04/25 10:35 Ferrous Sulfate 325 Mg Tablet PO 325 mg Q48H ANAHI Administration Furosemide 20 mg 10/03/25 09:00 10/04/25 10:36 Furosemide 20 Mg Tablet PO 20 mg DAILY ANAHI Administration Glucagon 1 mg 10/01/25 16:13 Glucagon For Inj 1 Mg Vial IM PRN PRN Hypoglycemia Protocol Glucose 15 gm 10/01/25 16:13 Glucose Oral Gel 15 Gm Of Glucse In 37.5 Gm Tube PO PRN PRN Hypoglycemia Protocol Guaifenesin 1,200 mg 10/01/25 21:00 10/04/25 10:36 Guaifenesin 12 Hr 600 Mg Tabcr PO 1,200 mg Q12HR ANAHI Administration Hydroxyzine HCl 10 mg 10/01/25 19:50 Hydroxyzine Hcl 10 Mg Tablet PO TID PRN Anxiety Heparin Sodium/Dextrose 25,000 units in 250 mls @ 0 mls/hr 10/01/25 15:50 10/02/25 02:56 Heparin Sodium/D5w 100 Units/Ml IV CONT 0 units/hr On Hold: 10/02/25 02:56 .Q0M ANAHI 0 mls/hr Protocol Titration Remdesivir 100 mg in 250 mls @ 250 mls/hr 10/02/25 22:00 10/03/25 21:31 IVPB 10/05/25 22:59 250 mls/hr Q24H ANAHI Administration Dextrose 1,000 mls @ 100 mls/hr 10/01/25 16:13 Dextrose 5% 1,000 Ml IVPB PRN PRN Hypoglycemia Protocol Insulin Aspart 2 - 5 units 10/01/25 17:00 10/04/25 12:56 Insulin Aspart (*Bkc) 100 Units/Ml SUB-Q Not Given TIDWM ANAHI Protocol Leflunomide 20 mg 10/02/25 09:00 10/04/25 10:35 Leflunomide 20 Mg Tablet PO 20 mg DAILY ANAHI Administration Lidocaine 1 patch 10/01/25 21:30 Lidocaine 5% Patch TRANSDERM DAILY PRN pain Loratadine 10 mg 10/01/25 21:00 10/03/25 21:30 Loratadine 10 Mg Tablet PO 10 mg HS ANAHI Administration Home Med ( 2.5 mg 10/01/25 22:00 10/04/25 12:58 Riociguat [Adempas] PO 10/31/25 21:59 2.5 mg 2.5 Mg Tablet) Q8HR ANAHI Administration Ondansetron HCl 4 mg 10/01/25 15:50 Ondansetron Inj 4 Mg/2 Ml Vial IV PUSH Q4H PRN Nausea Oxycodone HCl 5 mg 10/01/25 16:11 Oxycodone Hcl (*Crx) 5 Mg Tab Ir PO Q4H PRN Pain Rated 7-10 Oxymetazoline HCl 1 spray 10/03/25 21:00 10/04/25 10:35 Oxymetazoline Hcl 0.05% Julio 15 Ml Btl (*Bkc) NASAL 1 spray Q12HR ANAHI Administration Pantoprazole Sodium 40 mg 10/01/25 21:30 10/04/25 10:35 Pantoprazole 40 Mg Tablet PO 40 mg Q12HR ANAHI Administration Perflutren Lipid Microsphere 0 ml 10/02/25 15:44 Perflutren Lipid Microspheres 1.5 Ml Vial Diluted To 10 Ml Total Volume IV PUSH 10/05/25 15:44 ONCE PRN adequate visualization Protocol Polyethylene Glycol 17 gm 10/03/25 23:13 Polyethylene Glycol 3350 17 Gm Powd.Pack PO QAM PRN Constipation Pravastatin Sodium 40 mg 10/01/25 21:00 10/03/25 21:29 Pravastatin Sodium 20 Mg Tablet PO 40 mg HS ANAHI Administration Senna 8.6 mg 10/01/25 19:50 10/03/25 09:09 Sennosides 8.6 Mg Tablet PO 8.6 mg BID PRN Administration Constipation Sodium Chloride 1 spray 10/03/25 12:00 10/04/25 10:35 Saline 0.65% Julio Soln 44 Ml Btl NASAL 1 spray Q6HR ANAHI Administration Sodium Chloride 1 applic 10/03/25 23:12 Sodium Chloride Nasal Gel 14.1 Gm NASAL QID PRN Nasal Congestion Trazodone HCl 100 mg 10/01/25 21:00 10/03/25 21:29 Trazodone Hcl 50 Mg Tablet PO 100 mg HS ANAHI Administration Valacyclovir HCl 500 mg 10/01/25 21:00 10/03/25 21:30 Valacyclovir Hcl 500 Mg Tablet PO 500 mg HS ANAHI Administration Radiology Results: ITS Impressions Chest X-Ray 10/01/25 14:06 Impression: No acute cardiopulmonary abnormality. Chest CTA 10/01/25 15:20 IMPRESSION: 1. Pulmonary embolism subsegmental pulmonary artery right lower lobe, small thrombus burden. 2: Patchy faint groundglass opacities. Differential diagnosis includes pneumonia, early mild edema, hypersensitivity pneumonitis and nonspecific interstitial pneumonia. Venous Doppler Study 10/03/25 11:57 IMPRESSION: 1. No DVT either leg. Retroperitoneum Ultrasound 10/04/25 10:21 IMPRESSION: 1. 1.3 similar right renal cyst. Otherwise normal kidneys without hydronephrosis. Labs Labs: Laboratory Results - last 24 hr 10/03/25 10/03/25 10/04/25 17:52 22:02 07:36 WBC RBC Hgb Hct MCV MCH MCHC RDW Plt Count MPV Immature Gran % (Auto) Neut % (Auto) Lymph % (Auto) Sherman % (Auto) Eos % (Auto) Baso % (Auto) Lymph # (Auto) Sherman # (Auto) Eos # (Auto) Baso # (Auto) Abs Immat Gran (auto) Absolute Neuts (auto) Absolute Nucleated RBC Nucleated RBC % Sodium Potassium Chloride Carbon Dioxide Anion Gap BUN Creatinine Estim Creat Clear Calc Estimated GFR Glucose POC Capillary Glucose 219 H 252 H 129 H Hemoglobin A1c Calcium Magnesium Total Bilirubin AST ALT Alkaline Phosphatase Total Protein Albumin 10/04/25 10/04/25 09:17 11:34 WBC 7.7 RBC 2.85 L Hgb 8.9 L Hct 27.3 L MCV 95.8 MCH 31.2 MCHC 32.6 RDW 16.5 H Plt Count 160 MPV 9.2 Immature Gran % (Auto) 0.9 H Neut % (Auto) 76.8 H Lymph % (Auto) 9.6 L Sherman % (Auto) 11.5 H Eos % (Auto) 0.8 Baso % (Auto) 0.4 Lymph # (Auto) 0.74 L Sherman # (Auto) 0.9 H Eos # (Auto) 0.1 Baso # (Auto) 0.0 Abs Immat Gran (auto) 0.07 H Absolute Neuts (auto) 5.9 Absolute Nucleated RBC 0.040 H Nucleated RBC % 0.5 H Sodium 135 L Potassium 4.0 Chloride 110 H Carbon Dioxide 19 L Anion Gap 6 BUN 78 H Creatinine 2.03 H Estim Creat Clear Calc 18 Estimated GFR 23 L Glucose 128 H POC Capillary Glucose 164 H Hemoglobin A1c 6.5 H Calcium 8.5 Magnesium 2.3 Total Bilirubin 0.6 AST 41 H ALT 24 Alkaline Phosphatase 90 Total Protein 6.4 Albumin 3.5 Quality VTE Prophylaxis VTE prophylaxis: pharmacologic ordered
--- NOTE | 2025-10-04 13:50 | PCPTNOTE ---
Attempted to see pt again this afternoon and pt adamantly refused, stating she will try another day.
[2025-10-04] MEDS: INSULIN ASPART (*BKC) 100 UNITS/ML SUB-Q (17:32)
[2025-10-04] MEDS: SENNOSIDES 8.6 MG TABLET PO (21:44)
[2025-10-04] MEDS: LORATADINE 10 MG TABLET PO (21:44)
[2025-10-04] MEDS: REMDESIVIR 100 MG/NS 250 ML 100 MG/250 ML BAG 250 MG IVPB (21:44)
[2025-10-04] MEDS: PRAVASTATIN SODIUM 20 MG TABLET 40 MG PO (21:44)
[2025-10-04] MEDS: ACETAMINOPHEN 325 MG TABLET 650 MG PO (21:45)
--- NOTE | 2025-10-04 21:47 | PM.PNPUL ---
Progress Note: A&P Assessment and Plan (1) Pneumonia due to COVID-19 virus: Code(s): U07.1 - COVID-19; J12.89 - Other viral pneumonia Status: Acute Assessment and Plan: 10/01/25 PCR is positive for SARS-CoV-2, she had symptoms for a week before coming in, initially symptoms started around Thanksgiving with increasing cough, sputum with mild hemoptysis, shortness of breath, small increase in troponin. She is on remdesivir and dexamethasone, oxygen, does not want to take bronchodilator because she says is does not feel good in her mouth with scattered sores, probable aphthous ulcers consistent with her viral infection. She does not have wheezing, does not appear to need bronchodilator therapy. (2) Chronic hypoxic respiratory failure, on home oxygen therapy: Code(s): J96.11 - Chronic respiratory failure with hypoxia; Z99.81 - Dependence on supplemental oxygen Status: Acute Assessment and Plan: She has worn oxygen since diagnosed with lung COVID August 2020, she is currently on 3 L around the clock at home, on admission saturation was lower on her usual O2 and she is currently on higher flow between 5 and 7 L with adequate oxygenation, saturation 95%. She is now on 4 L, close to her 3 L.min baseline. (3) Pulmonary embolism of right lower lobe: Code(s): I26.99 - Other pulmonary embolism without acute cor pulmonale Status: Acute Assessment and Plan: CTA on 10/01/25 shows small clot burden to the vessels of the right lower lobe. She has chronic right heart failure, echo is worse compared to February of 2024 coma she is on oral anticoagulants, Eliquis, initially was on heparin. She is having some mild epistaxis. She has scant blood in both nostrils. She uses O2 at home, has not had this problems before. She is on humidified O2. She is using Harwood gel to nares and Afrin, epistaxis is mild. Dr Tariq note says that she has had Pe in the past. (4) Pulmonary arterial hypertension: Code(s): I27.21 - Secondary pulmonary arterial hypertension Status: Acute Assessment and Plan: Echo this admission shows right ventricular systolic pressure 99, this is a chronic problem, in February 2024 RVSP was 79 mmHg, secondary and due to untreated HUSSAIN plus RA, long COVID. She wears O2 at home 2 L /min all the time. does not want sleep issues addressed. She is not active at home, does not want testing related to O2, sleep. Plan Overall better, O2 need is lower. Less epistaxis. Continue Rx for COVID pneumonia; remdesivir and dexamethasone. She does not have severe oxygen issues, normally is on 3 L at home for long COVID and now is on 4L /min, with a saturation 92-94% Subjective Date/time seen: 10/04/25 21:47 Interval history: Oct 04, hospital follow up visit: 85-year-old woman with COVID pneumonia and new small subsegmental pulmonary artery embolus right lower lobe, obstructive sleep apnea who has not been using PAP therapy for the past several years due to poor tolerance. She continues is having small amount of blood from her nose and coughing with light streaks of blood and small amounts of sputum. O2 need is lower, 4 L.min, sat 93%. No fevers. Temp 96.7?, pulse 95 beats per minute respirations 20-24 per minute blood pressure 148/73 saturation 94% on 4 liters/minute. She appears tired. She is alert and oriented. Can speak in short sentences. Her CTA was October 01, BUN and creatinine continue to increase, BUN 78 (74) and creat 2.03 (2.11). Baseline values 53 / 1.88. Oct 03, 2025, new consult; Sayra Glass is an 85-year-old woman who lives at [facility], has been there a year after an episode of pancreatitis. 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 Her primary is Dr. Diaz, he is in charge of her O2 and all her medications. She does wear O2 3 L/min around the clock. She was admitted Oct 01 with shortness of breath, productive cough mostly white with scant blood, fatigue, chest soreness, maybe costochondritis, mouth sores, started after the when she was eating with 15 people. She is not aware of being with any sick contacts. She has COVID now, and had it initially Aug 2020, was seen in ER here. She had (-) Fever, (+) Nausea, does have a history of CHF, on Eliquis. She has a previous history of pulmonary embolism, on anticoagulation with initially warfarin, now on Eliquis. She is complaining of constipation, has irritable bowel, has not had a bowel movement since Tuesday. This is a little long for her to go without a BM. She s complaining of bleeding from both nostrils. She tells me she is not taking more nebulized bronchodilator because it hurts her mouth. She has a few white lesions in her mouth, appears to be after this ulcers. She does not have bronchospasm and never smoked, so stopping the bronchodilator therapy is not a problem. Her admission testing showed a (+) PCR of COVID, and her CTA showed subsegmental pulmonary emboli to the artery in the right lower lobe with a small thrombus burden and no right heart failure. She was started on remdesivir and dexamethasone, O2 at 5 L/min, echo shows severe pulmonary hypertension with an estimated pulmonary arterial pressure of 99, right ventricle is severely enlarged, right ventricular systolic function severely reduced. The left ventricle is hyperdynamic with EF greater than 70% and increased left ventricular wall thickness. She has not had leg swelling at home. She does not know if she snores, she sleeps poorly, goes to bed after 3 in the morning and wakens 4 hours later, says she does not nap during the day. Rarely has dreams. Denies waking at night to urinate. She really does not have any interested at all in revisited problems with sleep disordered breathing, really stops me from talking about it at all. She tells me that her son lost his 2 and a half years ago, really hard on the patient who did not want to go into [facility]. She does not like the food, the staff, the living arrangement. She does not involve her self with all the activities, stays in her room more often than not. DATA * 10/01/2025; positive SARS-CoV-2 PCR; negative influenza A and B, RSV. * 10/01/25 CXR ; No acute cardiopulmonary abnormality. * 10/01/25 CTA; IMPRESSION: 1. Pulmonary embolism subsegmental pulmonary artery right lower lobe, small thrombus burden. 2: Patchy faint groundglass opacities. Differential diagnosis includes pneumonia, early mild edema, hypersensitivity pneumonitis and nonspecific interstitial pneumonia. * 10/03/25; venous dopplers ; No DVT either leg. * wbc 6.2 k, 77% neutrophils, 7% bands * 10/01/25 echo; Complete two-dimensional, color flow and Doppler transthoracic echocardiogram is performed. 2. Left ventricular chamber dimension is normal. 3. D shaped interventricular septum during systole and diastole suggestive of pressure and volume overload of right ventricle. 4. There is severe concentric increased left ventricular wall thickness. 5. Left ventricular systolic function is hyperdynamic, estimated at >70. 6. The left ventricular diastolic function is grade I diastolic dysfunction. 7. E/e' 12 is mildly elevated. 8. Right ventricular chamber dimension is severely enlarged. 9. Right ventricular systolic function is severely reduced and with abnormal TAPSE 1.0 cm. 10. Left atrial chamber dimension is mildly enlarged. 11. Right atrial chamber dimension is moderately enlarged. 12. There is moderate aortic valve sclerosis. 13. There is mild aortic valve stenosis with a peak velocity of 253 cm/s,mean gradient of 14 mmHg, and aortic valve area of 1.5 cm2. 14. The mitral valve has a moderately calcified annulus. 15. There is severe tricuspid valve regurgitation. 16. Severe pulmonary hypertension, estimated pulmonary arterial systolic pressure is 99 mmHg. 17. There is trivial pericardial effusion. Review of Systems Review of Systems: All systems reviewed & are unremarkable except as noted in HPI and below Exam Narrative: GEN: Alert, oriented, not in distress. She is able to speak clearly, good hearing, O2 at 4 L, sat 93-94%,now of high flow. Lips are pale, flat affect. Temperature 36.8? pulse 93 respirations 24 blood pressure 138/70 weight 74.7 kg CHEST: Equal air entry, symmetric excursion, equal expansion, scattered rhonchi today, no wheezes CV: Regular S1S2 no m/g/r ABD : (+) bowel sounds Extremities : no clubbing, cyanosis, or edema. No calf tenderness. Good capillary refill. Skin is warm. PSYCH: normal thought and speech, gait is not tested. . Objective Data Vital Signs Vital Signs: Vital Signs - 24 hr 10/03/25 22:00 10/04/25 00:00 10/04/25 00:00 Temperature 36.6 C Pulse Rate 95 95 Respiratory Rate 24 H Blood Pressure 141/76 H Pulse Oximetry 96 94 Oxygen Delivery Nasal Cannula Oxygen Flow Rate 7 10/04/25 00:00 10/04/25 02:00 10/04/25 04:00 Temperature 36.2 C L Pulse Rate 94 92 99 Respiratory Rate 24 H Blood Pressure 151/76 H Pulse Oximetry 94 Oxygen Delivery Oxygen Flow Rate 10/04/25 04:00 10/04/25 04:00 10/04/25 06:00 Temperature Pulse Rate 94 94 Respiratory Rate Blood Pressure Pulse Oximetry 95 Oxygen Delivery Nasal Cannula Oxygen Flow Rate 7 10/04/25 07:57 10/04/25 08:00 10/04/25 10:00 Temperature 36.4 C L Pulse Rate 99 95 89 Respiratory Rate 23 H Blood Pressure 143/65 H Pulse Oximetry 93 Oxygen Delivery Oxygen Flow Rate 10/04/25 10:00 10/04/25 10:54 10/04/25 11:47 Temperature 36.6 C Pulse Rate 95 Respiratory Rate 25 H Blood Pressure 141/73 H Pulse Oximetry 96 96 92 Oxygen Delivery High Flow Nasal Cannula High Flow Nasal Cannula Oxygen Flow Rate 5 3 10/04/25 12:00 10/04/25 12:00 10/04/25 14:00 Temperature Pulse Rate 91 92 Respiratory Rate Blood Pressure Pulse Oximetry 93 Oxygen Delivery Nasal Cannula Oxygen Flow Rate 3 10/04/25 14:38 10/04/25 16:00 10/04/25 16:00 Temperature 36.7 C Pulse Rate 99 94 Respiratory Rate 23 H Blood Pressure 114/73 Pulse Oximetry 93 93 Oxygen Delivery Nasal Cannula Oxygen Flow Rate 3 10/04/25 16:00 10/04/25 18:00 10/04/25 20:00 Temperature 36.7 C Pulse Rate 97 98 Respiratory Rate 24 H Blood Pressure 148/73 H Pulse Oximetry 95 96 Oxygen Delivery Nasal Cannula Oxygen Flow Rate 4 Intake/Output Intake/Output: Intake & Output 10/01/25 10/02/25 10/03/25 10/04/25 23:59 23:59 23:59 23:59 Intake Total 834 3443.2 1950 1510 Output Total 226 278 1291 Balance 834 2973.2 1100 -190 Meds/Results Medications: Active Medications Generic Name Dose Route Start Last Admin Trade Name Freq PRN Reason Stop Dose Admin Acetaminophen 650 mg 10/01/25 15:50 10/04/25 21:45 Acetaminophen 325 Mg Tablet PO 650 mg Q4H PRN Administration Mild Pain (1-3) or Fever Albuterol/Ipratropium 3 ml 10/01/25 20:00 10/04/25 21:09 Ipratropium 0.5 Mg/Albuterol Sulfate 2.5 Mg (Base) Ampul.Neb 3 Ml INHALATION 3 ml Q6HRT ANAHI Administration Apixaban 5 mg 10/02/25 21:00 10/04/25 21:44 Apixaban 5 Mg Tablet PO 5 mg Q12HR ANAHI Administration Buspirone HCl 30 mg 10/02/25 09:00 10/04/25 17:31 Buspirone Hcl 10 Mg Tablet PO 30 mg BID ANAHI Administration Dexamethasone 6 mg 10/02/25 08:00 10/04/25 10:35 Dexamethasone 2 Mg Tablet PO 10/11/25 08:01 6 mg DAILY@0800 ANAHI Administration Dextrose 12.5 gm 10/01/25 16:13 Dextrose 50% 25 Gm/50 Ml Syringe IV PUSH PRN PRN Hypoglycemia Protocol Docosanol 1 applic 10/01/25 21:00 10/04/25 21:46 Docosanol 10% Cream 2 Gm TOPICAL 1 applic 5 TIMES DAILY ANAHI Administration Docusate Sodium 100 mg 10/01/25 17:00 10/04/25 17:32 Docusate Sodium 100 Mg Capsule PO 100 mg BID ANAHI Administration Duloxetine HCl 60 mg 10/02/25 09:00 10/04/25 10:36 Duloxetine Hcl 60 Mg Capsule.Dr PO 60 mg DAILY ANAHI Administration Ferrous Sulfate 325 mg 10/02/25 09:00 10/04/25 10:35 Ferrous Sulfate 325 Mg Tablet PO 325 mg Q48H ANAHI Administration Furosemide 20 mg 10/03/25 09:00 10/04/25 10:36 Furosemide 20 Mg Tablet PO 20 mg DAILY ANAHI Administration Glucagon 1 mg 10/01/25 16:13 Glucagon For Inj 1 Mg Vial IM PRN PRN Hypoglycemia Protocol Glucose 15 gm 10/01/25 16:13 Glucose Oral Gel 15 Gm Of Glucse In 37.5 Gm Tube PO PRN PRN Hypoglycemia Protocol Guaifenesin 1,200 mg 10/01/25 21:00 10/04/25 21:45 Guaifenesin 12 Hr 600 Mg Tabcr PO 1,200 mg Q12HR ANAHI Administration Hydroxyzine HCl 10 mg 10/01/25 19:50 Hydroxyzine Hcl 10 Mg Tablet PO TID PRN Anxiety Heparin Sodium/Dextrose 25,000 units in 250 mls @ 0 mls/hr 10/01/25 15:50 10/02/25 02:56 Heparin Sodium/D5w 100 Units/Ml IV CONT 0 units/hr On Hold: 10/02/25 02:56 .Q0M ANAHI 0 mls/hr Protocol Titration Remdesivir 100 mg in 250 mls @ 250 mls/hr 10/02/25 22:00 10/04/25 21:44 IVPB 10/05/25 22:59 250 mls/hr Q24H ANAHI Administration Dextrose 1,000 mls @ 100 mls/hr 10/01/25 16:13 Dextrose 5% 1,000 Ml IVPB PRN PRN Hypoglycemia Protocol Insulin Aspart 2 - 5 units 10/01/25 17:00 10/04/25 17:32 Insulin Aspart (*Bkc) 100 Units/Ml SUB-Q 2 units TIDWM ANAHI Administration Protocol Leflunomide 20 mg 10/02/25 09:00 10/04/25 10:35 Leflunomide 20 Mg Tablet PO 20 mg DAILY ANAHI Administration Lidocaine 1 patch 10/01/25 21:30 Lidocaine 5% Patch TRANSDERM DAILY PRN pain Loratadine 10 mg 10/01/25 21:00 10/04/25 21:44 Loratadine 10 Mg Tablet PO 10 mg HS ANAHI Administration Home Med ( 2.5 mg 10/01/25 22:00 10/04/25 21:46 Riociguat [Adempas] PO 10/31/25 21:59 2.5 mg 2.5 Mg Tablet) Q8HR ANAHI Administration Ondansetron HCl 4 mg 10/01/25 15:50 Ondansetron Inj 4 Mg/2 Ml Vial IV PUSH Q4H PRN Nausea Oxycodone HCl 5 mg 10/01/25 16:11 Oxycodone Hcl (*Crx) 5 Mg Tab Ir PO Q4H PRN Pain Rated 7-10 Oxymetazoline HCl 1 spray 10/03/25 21:00 10/04/25 21:46 Oxymetazoline Hcl 0.05% Julio 15 Ml Btl (*Bkc) NASAL 1 spray Q12HR ANAHI Administration Pantoprazole Sodium 40 mg 10/01/25 21:30 10/04/25 21:45 Pantoprazole 40 Mg Tablet PO 40 mg Q12HR ANAHI Administration Perflutren Lipid Microsphere 0 ml 10/02/25 15:44 Perflutren Lipid Microspheres 1.5 Ml Vial Diluted To 10 Ml Total Volume IV PUSH 10/05/25 15:44 ONCE PRN adequate visualization Protocol Polyethylene Glycol 17 gm 10/03/25 23:13 Polyethylene Glycol 3350 17 Gm Powd.Pack PO QAM PRN Constipation Pravastatin Sodium 40 mg 10/01/25 21:00 10/04/25 21:44 Pravastatin Sodium 20 Mg Tablet PO 40 mg HS ANAHI Administration Senna 8.6 mg 10/01/25 19:50 10/04/25 21:44 Sennosides 8.6 Mg Tablet PO 8.6 mg BID PRN Administration Constipation Sodium Chloride 1 spray 10/03/25 12:00 10/04/25 17:32 Saline 0.65% Julio Soln 44 Ml Btl NASAL 1 spray Q6HR ANAHI Administration Sodium Chloride 1 applic 10/03/25 23:12 Sodium Chloride Nasal Gel 14.1 Gm NASAL QID PRN Nasal Congestion Trazodone HCl 100 mg 10/01/25 21:00 10/04/25 21:44 Trazodone Hcl 50 Mg Tablet PO 100 mg HS ANAHI Administration Valacyclovir HCl 500 mg 10/01/25 21:00 10/04/25 21:45 Valacyclovir Hcl 500 Mg Tablet PO 500 mg HS ANAHI Administration Radiology Results: ITS Impressions Chest X-Ray 10/01/25 14:06 Impression: No acute cardiopulmonary abnormality. Chest CTA 10/01/25 15:20 IMPRESSION: 1. Pulmonary embolism subsegmental pulmonary artery right lower lobe, small thrombus burden. 2: Patchy faint groundglass opacities. Differential diagnosis includes pneumonia, early mild edema, hypersensitivity pneumonitis and nonspecific interstitial pneumonia. Venous Doppler Study 10/03/25 11:57 IMPRESSION: 1. No DVT either leg. Retroperitoneum Ultrasound 10/04/25 10:21 IMPRESSION: 1. 1.3 similar right renal cyst. Otherwise normal kidneys without hydronephrosis. Labs Labs: Laboratory Results - last 24 hr 10/03/25 10/04/25 10/04/25 22:02 07:36 09:17 WBC 7.7 RBC 2.85 L Hgb 8.9 L Hct 27.3 L MCV 95.8 MCH 31.2 MCHC 32.6 RDW 16.5 H Plt Count 160 MPV 9.2 Immature Gran % (Auto) 0.9 H Neut % (Auto) 76.8 H Lymph % (Auto) 9.6 L [place] % (Auto) 11.5 H Eos % (Auto) 0.8 Baso % (Auto) 0.4 Lymph # (Auto) 0.74 L [place] # (Auto) 0.9 H Eos # (Auto) 0.1 Baso # (Auto) 0.0 Abs Immat Gran (auto) 0.07 H Absolute Neuts (auto) 5.9 Absolute Nucleated RBC 0.040 H Nucleated RBC % 0.5 H Sodium 135 L Potassium 4.0 Chloride 110 H Carbon Dioxide 19 L Anion Gap 6 BUN 78 H Creatinine 2.03 H Estim Creat Clear Calc 18 Estimated GFR 23 L Glucose 128 H POC Capillary Glucose 252 H 129 H Hemoglobin A1c 6.5 H Calcium 8.5 Magnesium 2.3 Total Bilirubin 0.6 AST 41 H ALT 24 Alkaline Phosphatase 90 Total Protein 6.4 Albumin 3.5 10/04/25 10/04/25 10/04/25 11:34 16:14 20:03 WBC RBC Hgb Hct MCV MCH MCHC RDW Plt Count MPV Immature Gran % (Auto) Neut % (Auto) Lymph % (Auto) [place] % (Auto) Eos % (Auto) Baso % (Auto) Lymph # (Auto) [place] # (Auto) Eos # (Auto) Baso # (Auto) Abs Immat Gran (auto) Absolute Neuts (auto) Absolute Nucleated RBC Nucleated RBC % Sodium Potassium Chloride Carbon Dioxide Anion Gap BUN Creatinine Estim Creat Clear Calc Estimated GFR Glucose POC Capillary Glucose 164 H 224 H 282 H Hemoglobin A1c Calcium Magnesium Total Bilirubin AST ALT Alkaline Phosphatase Total Protein Albumin
[2025-10-05] VITALS (13 sets, daily range): BP systolic 127–151; BP diastolic 63–89; PULSE 91–103; RESP 20–24; TEMP 36.4–36.8; O2SAT 92–96
--- NOTE | 2025-10-05 01:46 | PCRCNOTE ---
patient refused neb tx's and stated that she will no longer take neb tx's because she feels worse.
[2025-10-05 04:40] LABS: Hematocrit 27.3 % (37.0-47.0); Hemoglobin 8.8 g/dL (12.0-15.0); Immature Granulocyte Percent A 1.2 % (0-0.5); Lymphocytes Absolute Auto 0.61 K/mm3 (0.9-3.2); Mean Corpuscular HGB Conc 32.2 g/dl (32-36); Mean Corpuscular Hemoglobin 30.6 pg (26-34); Mean Corpuscular Volume 94.8 fl (80-100); Nucleated Red Blood Cells Absolute Auto 0.000 K/mm3 (0.0-0.012); Nucleated Red Blood Cells Perc 0.0 % (0.0-0.2); Platelet Count Result 186 k/mm3 (150-375); Red Blood Count 2.88 M/mm3 (4.2-5.4); White Blood Count 6.8 K/mm3 (4.5-10.0)
[2025-10-05 04:49] LABS: INR 1.6; Prothrombin Time 18.7 Seconds (11.1-14.7)
[2025-10-05 05:22] LABS: Alanine Aminotransferase 23 U/L (6-35); Albumin Level 3.3 g/dL (3.5-5.1); Alkaline Phosphatase 94 U/L (38-126); Anion Gap 5 mmol/L (4-12); Aspartate Amino Transferase 28 U/L (14-36); Bilirubin,Total 0.7 mg/dL (0.2-1.3); Blood Urea Nitrogen 73 mg/dL (7-17); Calcium 8.5 mg/dL (8.4-10.2); Carbon Dioxide 19 mmol/L (22-30); Chloride 111 mmol/L (98-107); Estimated CRCL calculation 22 ml/min; Estimated Glomerular Filt Rate 29; Glucose 151 mg/dL (65-110); Potassium 3.9 mmol/L (3.4-5.0); Sodium 135 mmol/L (137-145); Total Protein 6.3 g/dL (6.3-8.2)
[2025-10-05] MEDS: SALINE 0.65% NAS SOLN 44 ML BTL 1 SPRAY NASAL (05:35)
[2025-10-05] MEDS: cefTRIAXone 1 GM in SODIUM CHLORIDE 0.9% IV 50 ML 100 ML IVPB (05:36)
[2025-10-05] MEDS: DOCUSATE SODIUM 100 MG CAPSULE PO ×2 (09:33→17:36)
[2025-10-05] MEDS: FUROSEMIDE 20 MG TABLET PO (09:34)
[2025-10-05] MEDS: DULoxetine HCL 60 MG CAPSULE.DR PO (09:34)
[2025-10-05] MEDS: PANTOPRAZOLE 40 MG TABLET PO ×2 (09:34→20:06)
[2025-10-05] MEDS: guaiFENesin 12 HR 600 MG TABCR 1200 MG PO ×2 (09:34→20:05)
[2025-10-05] MEDS: APIXABAN 5 MG TABLET PO ×2 (09:34→20:06)
[2025-10-05] MEDS: LEFLUNOMIDE 20 MG TABLET PO (09:35)
[2025-10-05] MEDS: OXYMETAZOLINE HCL 0.05% NAS 15 ML BTL (*BKC) 1 SPRAY NASAL ×2 (09:38→20:06)
--- NOTE | 2025-10-05 11:44 | P.PNIM_ITS ---
Assessment and Plan Assessment and Plan (1) Pneumonia due to COVID-19 virus: Code(s): U07.1 - COVID-19; J12.89 - Other viral pneumonia Status: Acute Assessment and Plan: * Continue remdesivir and dexamethasone * 12/6 slow clinical progress (2) Chronic hypoxic respiratory failure, on home oxygen therapy: Code(s): J96.11 - Chronic respiratory failure with hypoxia; Z99.81 - Dependence on supplemental oxygen Status: Acute Assessment and Plan: * Peak oxygen requirement with 7 liters/minute * 12/6 oxygen requirement 4 liters/minute by nasal cannula (3) Urinary tract infection: Code(s): N39.0 - Urinary tract infection, site not specified Status: Acute Assessment and Plan: * 12/ g negative rods on culture * Continue ceftriaxone (4) Pulmonary embolism of right lower lobe: Code(s): I26.99 - Other pulmonary embolism without acute cor pulmonale Status: Acute Assessment and Plan: * Has a history of chronic thromboembolic pulmonary hypertension * Continue apixaban (5) Acute kidney injury superimposed on CKD: Code(s): N17.9 - Acute kidney failure, unspecified; N18.9 - Chronic kidney disease, unspecified Status: Acute Assessment and Plan: * 12/ creatinine improved to 1.68 which is at baseline (6) Diabetes: Code(s): E11.9 - Type 2 diabetes mellitus without complications Status: Chronic Assessment and Plan: * 12/ FBS 124 (7) Elevated troponin: Code(s): R79.89 - Other specified abnormal findings of blood chemistry Status: Acute Assessment and Plan: * No acute coronary syndrome (8) CHF (congestive heart failure): Code(s): I50.9 - Heart failure, unspecified Status: Acute (9) Hypertension: Code(s): I10 - Essential (primary) hypertension Status: Acute (10) CKD stage 3 due to type 2 diabetes mellitus: Code(s): E11.22 - Type 2 diabetes mellitus with diabetic chronic kidney disease; N18.30 - Chronic kidney disease, stage 3 unspecified Status: Acute Subjective Date/time seen: 10/05/25 11:44 Interval history: Only complaints are weak and tired and cough. Poor appetite. Denied pain. Denied shortness of breath different from her baseline. Denied GI or issues. Some streaks of blood in her sputum. Otherwise no abnormal bleeding. Review of Systems Review of Systems: All systems reviewed & are unremarkable except as noted in HPI and below Exam Narrative: HEENT: PERRL, sclerae nonicteric, pharyngeal mucosa pink and intact NECK: No JVD CHEST: Normal effort, slight coarseness at bases but without crackles or wheezes HEART: NL S1/S2, regular, no murmur ABDOMEN: BS+, soft, nontender, no mass, no bruits EXTREMITIES: No cyanosis, edema, or clubbing NEUROLOGIC: CN intact and symmetric to inspection MUSCULOSKELETAL: Tone and strength symmetric but diffusely for over 5 PSYCH: Alert. Oriented to person, place, and time Objective Data Vital Signs Vital Signs: Vital Signs - 24 hr 10/04/25 11:47 10/04/25 12:00 10/04/25 12:00 Temperature 97.8 F Pulse Rate 95 91 Respiratory Rate 25 H Blood Pressure 141/73 H Pulse Oximetry 92 93 Oxygen Delivery Nasal Cannula Oxygen Flow Rate 3 Fraction of Inspired Oxygen 10/04/25 14:00 10/04/25 14:38 10/04/25 16:00 Temperature 98.0 F Pulse Rate 92 99 Respiratory Rate 23 H Blood Pressure 114/73 Pulse Oximetry 93 93 Oxygen Delivery Nasal Cannula Oxygen Flow Rate 3 Fraction of Inspired Oxygen 10/04/25 16:00 10/04/25 16:00 10/04/25 18:00 Temperature Pulse Rate 94 97 Respiratory Rate Blood Pressure Pulse Oximetry 95 Oxygen Delivery Nasal Cannula Oxygen Flow Rate 4 Fraction of Inspired Oxygen 10/04/25 20:00 10/04/25 20:00 10/04/25 20:00 Temperature 98.0 F Pulse Rate 98 99 Respiratory Rate 24 H Blood Pressure 148/73 H Pulse Oximetry 96 96 Oxygen Delivery Nasal Cannula Oxygen Flow Rate 4 Fraction of Inspired Oxygen 10/04/25 21:15 10/04/25 22:00 10/05/25 00:00 Temperature 97.8 F Pulse Rate 95 97 Respiratory Rate 24 H Blood Pressure 133/70 Pulse Oximetry 96 96 Oxygen Delivery Nasal Cannula Oxygen Flow Rate 4 Fraction of Inspired Oxygen 10/05/25 00:00 10/05/25 00:00 10/05/25 02:00 Temperature Pulse Rate 94 93 Respiratory Rate Blood Pressure Pulse Oximetry 96 Oxygen Delivery Nasal Cannula Oxygen Flow Rate 4 Fraction of Inspired Oxygen 10/05/25 04:00 10/05/25 04:00 10/05/25 04:00 Temperature 97.9 F Pulse Rate 99 91 Respiratory Rate 24 H Blood Pressure 151/89 H Pulse Oximetry 94 94 Oxygen Delivery Nasal Cannula Oxygen Flow Rate 4 Fraction of Inspired Oxygen 10/05/25 06:00 10/05/25 07:30 10/05/25 07:55 Temperature 97.5 F L Pulse Rate 92 95 Respiratory Rate 20 Blood Pressure 147/63 H Pulse Oximetry 94 96 Oxygen Delivery Nasal Cannula Oxygen Flow Rate 4 Fraction of Inspired Oxygen 36 10/05/25 11:40 Temperature 98 F Pulse Rate 97 Respiratory Rate 24 H Blood Pressure 149/82 H Pulse Oximetry 95 Oxygen Delivery Oxygen Flow Rate Fraction of Inspired Oxygen Intake/Output Intake/Output: Intake & Output 10/02/25 10/03/25 10/04/25 10/05/25 23:59 23:59 23:59 23:59 Intake Total 3443.2 1950 1760 Output Total 269 467 5842 1150 Balance 2973.2 1100 60 -1150 Meds/Results Medications: Active Medications Generic Name Dose Route Start Last Admin Trade Name Freq PRN Reason Stop Dose Admin Acetaminophen 650 mg 10/01/25 15:50 10/04/25 21:45 Acetaminophen 325 Mg Tablet PO 650 mg Q4H PRN Administration Mild Pain (1-3) or Fever Albuterol/Ipratropium 3 ml 10/01/25 20:00 10/05/25 07:30 Ipratropium 0.5 Mg/Albuterol Sulfate 2.5 Mg (Base) Ampul.Neb 3 Ml INHALATION Not Given Q6HRT ANAHI Apixaban 5 mg 10/02/25 21:00 10/05/25 09:34 Apixaban 5 Mg Tablet PO 5 mg Q12HR ANAHI Administration Buspirone HCl 30 mg 10/02/25 09:00 10/05/25 09:34 Buspirone Hcl 10 Mg Tablet PO 30 mg BID ANAHI Administration Dexamethasone 6 mg 10/02/25 08:00 10/05/25 09:33 Dexamethasone 2 Mg Tablet PO 10/11/25 08:01 6 mg DAILY@0800 ANAHI Administration Dextrose 12.5 gm 10/01/25 16:13 Dextrose 50% 25 Gm/50 Ml Syringe IV PUSH PRN PRN Hypoglycemia Protocol Docosanol 1 applic 10/01/25 21:00 10/05/25 09:38 Docosanol 10% Cream 2 Gm TOPICAL 1 applic 5 TIMES DAILY ANAHI Administration Docusate Sodium 100 mg 10/01/25 17:00 10/05/25 09:33 Docusate Sodium 100 Mg Capsule PO 100 mg BID ANAHI Administration Duloxetine HCl 60 mg 10/02/25 09:00 10/05/25 09:34 Duloxetine Hcl 60 Mg Capsule.Dr PO 60 mg DAILY ANAHI Administration Ferrous Sulfate 325 mg 10/02/25 09:00 10/04/25 10:35 Ferrous Sulfate 325 Mg Tablet PO 325 mg Q48H ANAHI Administration Furosemide 20 mg 10/03/25 09:00 10/05/25 09:34 Furosemide 20 Mg Tablet PO 20 mg DAILY ANAHI Administration Glucagon 1 mg 10/01/25 16:13 Glucagon For Inj 1 Mg Vial IM PRN PRN Hypoglycemia Protocol Glucose 15 gm 10/01/25 16:13 Glucose Oral Gel 15 Gm Of Glucse In 37.5 Gm Tube PO PRN PRN Hypoglycemia Protocol Guaifenesin 1,200 mg 10/01/25 21:00 10/05/25 09:34 Guaifenesin 12 Hr 600 Mg Tabcr PO 1,200 mg Q12HR ANAHI Administration Hydroxyzine HCl 10 mg 10/01/25 19:50 10/05/25 09:35 Hydroxyzine Hcl 10 Mg Tablet PO 10 mg TID PRN Administration Anxiety Heparin Sodium/Dextrose 25,000 units in 250 mls @ 0 mls/hr 10/01/25 15:50 10/02/25 02:56 Heparin Sodium/D5w 100 Units/Ml IV CONT 0 units/hr On Hold: 10/02/25 02:56 .Q0M ANAHI 0 mls/hr Protocol Titration Remdesivir 100 mg in 250 mls @ 250 mls/hr 10/02/25 22:00 10/04/25 22:44 IVPB 10/05/25 22:59 Infused Q24H ANAHI Infusion Dextrose 1,000 mls @ 100 mls/hr 10/01/25 16:13 Dextrose 5% 1,000 Ml IVPB PRN PRN Hypoglycemia Protocol Ceftriaxone Sodium 1 gm/ 50 mls @ 100 mls/hr 10/06/25 05:00 Sodium Chloride IVPB Q24H ANAHI Insulin Aspart 2 - 5 units 10/01/25 17:00 10/05/25 09:31 Insulin Aspart (*Bkc) 100 Units/Ml SUB-Q Not Given TIDWM [facility] Protocol Leflunomide 20 mg 10/02/25 09:00 10/05/25 09:35 Leflunomide 20 Mg Tablet PO 20 mg DAILY ANAHI Administration Lidocaine 1 patch 10/01/25 21:30 Lidocaine 5% Patch TRANSDERM DAILY PRN pain Loratadine 10 mg 10/01/25 21:00 10/04/25 21:44 Loratadine 10 Mg Tablet PO 10 mg HS ANAHI Administration Home Med ( 2.5 mg 10/01/25 22:00 10/05/25 05:35 Riociguat [Adempas] PO 10/31/25 21:59 2.5 mg 2.5 Mg Tablet) Q8HR ANAHI Administration Ondansetron HCl 4 mg 10/01/25 15:50 Ondansetron Inj 4 Mg/2 Ml Vial IV PUSH Q4H PRN Nausea Oxycodone HCl 5 mg 10/01/25 16:11 Oxycodone Hcl (*Crx) 5 Mg Tab Ir PO Q4H PRN Pain Rated 7-10 Oxymetazoline HCl 1 spray 10/03/25 21:00 10/05/25 09:38 Oxymetazoline Hcl 0.05% Julio 15 Ml Btl (*Bkc) NASAL 1 spray Q12HR ANAHI Administration Pantoprazole Sodium 40 mg 10/01/25 21:30 10/05/25 09:34 Pantoprazole 40 Mg Tablet PO 40 mg Q12HR ANAHI Administration Perflutren Lipid Microsphere 0 ml 10/02/25 15:44 Perflutren Lipid Microspheres 1.5 Ml Vial Diluted To 10 Ml Total Volume IV PUSH 10/05/25 15:44 ONCE PRN adequate visualization Protocol Polyethylene Glycol 17 gm 10/03/25 23:13 Polyethylene Glycol 3350 17 Gm Powd.Pack PO QAM PRN Constipation Pravastatin Sodium 40 mg 10/01/25 21:00 10/04/25 21:44 Pravastatin Sodium 20 Mg Tablet PO 40 mg HS ANAHI Administration Senna 8.6 mg 10/01/25 19:50 10/04/25 21:44 Sennosides 8.6 Mg Tablet PO 8.6 mg BID PRN Administration Constipation Sodium Chloride 1 spray 10/03/25 12:00 10/05/25 05:35 Saline 0.65% Julio Soln 44 Ml Btl NASAL 1 spray Q6HR ANAHI Administration Sodium Chloride 1 applic 10/03/25 23:12 Sodium Chloride Nasal Gel 14.1 Gm NASAL QID PRN Nasal Congestion Trazodone HCl 100 mg 10/01/25 21:00 10/04/25 21:44 Trazodone Hcl 50 Mg Tablet PO 100 mg HS ANAHI Administration Valacyclovir HCl 500 mg 10/01/25 21:00 10/04/25 21:45 Valacyclovir Hcl 500 Mg Tablet PO 500 mg HS ANAHI Administration Radiology Results: ITS Impressions Chest X-Ray 10/01/25 14:06 Impression: No acute cardiopulmonary abnormality. Chest CTA 10/01/25 15:20 IMPRESSION: 1. Pulmonary embolism subsegmental pulmonary artery right lower lobe, small thrombus burden. 2: Patchy faint groundglass opacities. Differential diagnosis includes pne umonia, early mild edema, hypersensitivity pneumonitis and nonspecific interstitial pneumonia. Venous Doppler Study 10/03/25 11:57 IMPRESSION: 1. No DVT either leg. Retroperitoneum Ultrasound 10/04/25 10:21 IMPRESSION: 1. 1.3 similar right renal cyst. Otherwise normal kidneys without hydronephrosis. Labs Labs: Laboratory Results - last 24 hr 10/04/25 10/04/25 10/04/25 11:34 16:14 20:03 WBC RBC Hgb Hct MCV MCH MCHC RDW Plt Count MPV Immature Gran % (Auto) Neut % (Auto) Lymph % (Auto) [place] % (Auto) Eos % (Auto) Baso % (Auto) Lymph # (Auto) [place] # (Auto) Eos # (Auto) Baso # (Auto) Abs Immat Gran (auto) Absolute Neuts (auto) Absolute Nucleated RBC Nucleated RBC % PT INR Sodium Potassium Chloride Carbon Dioxide Anion Gap BUN Creatinine Estim Creat Clear Calc Estimated GFR Glucose POC Capillary Glucose 164 H 224 H 282 H Calcium Total Bilirubin Direct Bilirubin AST ALT Alkaline Phosphatase Total Protein Albumin 10/05/25 10/05/25 10/05/25 03:51 07:29 11:34 WBC 6.8 RBC 2.88 L Hgb 8.8 L Hct 27.3 L MCV 94.8 MCH 30.6 MCHC 32.2 RDW 16.5 H Plt Count 186 MPV 10.0 Immature Gran % (Auto) 1.2 H Neut % (Auto) 78.6 H Lymph % (Auto) 9.0 L [place] % (Auto) 10.7 H Eos % (Auto) 0.4 Baso % (Auto) 0.1 L Lymph # (Auto) 0.61 L [place] # (Auto) 0.7 H Eos # (Auto) 0.0 Baso # (Auto) 0.0 Abs Immat Gran (auto) 0.08 H Absolute Neuts (auto) 5.3 Absolute Nucleated RBC 0.000 Nucleated RBC % 0.0 PT 18.7 H INR 1.6 Sodium 135 L Potassium 3.9 Chloride 111 H Carbon Dioxide 19 L Anion Gap 5 BUN 73 H Creatinine 1.68 H Estim Creat Clear Calc 22 Estimated GFR 29 L Glucose 151 H POC Capillary Glucose 124 H 183 H Calcium 8.5 Total Bilirubin 0.7 Direct Bilirubin 0.0 AST 28 ALT 23 Alkaline Phosphatase 94 Total Protein 6.3 Albumin 3.3 L
[2025-10-05] MEDS: SENNOSIDES 8.6 MG TABLET PO ×3 (14:27→17:36)
[2025-10-05] MEDS: INSULIN ASPART (*BKC) 100 UNITS/ML SUB-Q (17:36)
[2025-10-05] MEDS: PRAVASTATIN SODIUM 20 MG TABLET 40 MG PO (20:06)
[2025-10-05] MEDS: LORATADINE 10 MG TABLET PO (20:06)
[2025-10-05] MEDS: REMDESIVIR 100 MG/NS 250 ML 100 MG/250 ML BAG 250 MG IVPB (22:03)
[2025-10-06] VITALS (7 sets, daily range): BP systolic 134–154; BP diastolic 62–90; PULSE 68–97; RESP 20; TEMP 36.4–36.6; O2SAT 92–96
[2025-10-06] MEDS: cefTRIAXone 1 GM in SODIUM CHLORIDE 0.9% IV 50 ML 100 ML IVPB (05:00)
[2025-10-06] MEDS: DOCUSATE SODIUM 100 MG CAPSULE PO ×2 (09:00→16:18)
[2025-10-06] MEDS: LEFLUNOMIDE 20 MG TABLET PO (09:00)
[2025-10-06] MEDS: PANTOPRAZOLE 40 MG TABLET PO ×2 (09:00→20:49)
[2025-10-06] MEDS: APIXABAN 5 MG TABLET PO ×2 (09:00→20:49)
[2025-10-06] MEDS: FUROSEMIDE 20 MG TABLET PO (09:00)
[2025-10-06] MEDS: guaiFENesin 12 HR 600 MG TABCR 1200 MG PO ×2 (09:01→20:49)
[2025-10-06] MEDS: FERROUS SULFATE 325 MG TABLET PO (09:01)
[2025-10-06] MEDS: DULoxetine HCL 60 MG CAPSULE.DR PO (09:01)
[2025-10-06] MEDS: OXYMETAZOLINE HCL 0.05% NAS 15 ML BTL (*BKC) 1 SPRAY NASAL ×2 (09:02→20:49)
[2025-10-06] MEDS: SENNOSIDES 8.6 MG TABLET PO (10:03)
[2025-10-06] MEDS: SALINE 0.65% NAS SOLN 44 ML BTL 1 SPRAY NASAL (12:44)
--- NOTE | 2025-10-06 13:20 | PCOTNOTE ---
Patient up in chair upon entry. Patient declined therapy. Encouragement given but patient continues to decline all activity stating she does not feel good and does not want to do anything today.
[2025-10-06 13:23] LABS: IFOB Positive Control Positive; Immunochemical Fecal Occult Bl Positive (N)
--- NOTE | 2025-10-06 14:54 | P.PNIM_ITS ---
Assessment and Plan Assessment and Plan (1) Pneumonia due to COVID-19 virus: Code(s): U07.1 - COVID-19; J12.89 - Other viral pneumonia Status: Acute Assessment and Plan: * Continue remdesivir and dexamethasone * 10/05-10/06 slow improvement clinically (2) Chronic hypoxic respiratory failure, on home oxygen therapy: Code(s): J96.11 - Chronic respiratory failure with hypoxia; Z99.81 - Dependence on supplemental oxygen Status: Acute Assessment and Plan: * Peak oxygen requirement with 7 liters/minute * 10/05 oxygen requirement 4 liters/minute by nasal cannula, 10/06 3 LMP (3) Urinary tract infection: Code(s): N39.0 - Urinary tract infection, site not specified Status: Acute Assessment and Plan: * 10/05 Klebsiella sensitive to ceftriaxone * Continue ceftriaxone (4) Pulmonary embolism of right lower lobe: Code(s): I26.99 - Other pulmonary embolism without acute cor pulmonale Status: Acute Assessment and Plan: * Has a history of chronic thromboembolic pulmonary hypertension * Continue apixaban (5) Anemia: Code(s): D64.9 - Anemia, unspecified Status: Chronic Assessment and Plan: * Chronic, likely related to CKD * 10/06 BM formed but dark and POSITIVE for occult blood, f/u H/H ordered * Continue Eliquis as long as H/H stable and no overt bleeding (6) Acute kidney injury superimposed on CKD: Code(s): N17.9 - Acute kidney failure, unspecified; N18.9 - Chronic kidney disease, unspecified Status: Acute Assessment and Plan: * 10/05 creatinine improved to 1.68 which is at baseline (7) CKD stage 3 due to type 2 diabetes mellitus: Code(s): E11.22 - Type 2 diabetes mellitus with diabetic chronic kidney disease; N18.30 - Chronic kidney disease, stage 3 unspecified Status: Acute Assessment and Plan: * 10/05 creatinine 1.68 (8) Diabetes: Code(s): E11.9 - Type 2 diabetes mellitus without complications Status: Chronic Assessment and Plan: * 10/05 FBS 124 (9) Elevated troponin: Code(s): R79.89 - Other specified abnormal findings of blood chemistry Status: Acute Assessment and Plan: * No acute coronary syndrome (10) CHF (congestive heart failure): Code(s): I50.9 - Heart failure, unspecified Status: Acute (11) Hypertension: Code(s): I10 - Essential (primary) hypertension Status: Acute Subjective Date/time seen: 10/06/25 14:54 Interval history: Feeling a little better today. Sitting up in chair more. Only complaints are weak and tired and cough. Poor appetite. Denied pain. Denied shortness of breath different from her baseline. Denied GI or issues. Some streaks of blood in her sputum. Otherwise no abnormal bleeding. Review of Systems Review of Systems: All systems reviewed & are unremarkable except as noted in HPI and below Exam Narrative: HEENT: PERRL, sclerae nonicteric, pharyngeal mucosa pink and intact NECK: No JVD CHEST: Normal effort, slight coarseness at bases but without crackles or wheezes HEART: NL S1/S2, regular, no murmur ABDOMEN: BS+, soft, nontender, no mass, no bruits EXTREMITIES: No cyanosis, edema, or clubbing NEUROLOGIC: CN intact and symmetric to inspection MUSCULOSKELETAL: Tone and strength symmetric but diffusely for over 5 PSYCH: Alert. Oriented to person, place, and time Objective Data Vital Signs Vital Signs: Vital Signs - 24 hr 10/05/25 16:00 10/05/25 20:00 10/05/25 21:49 Temperature 98.2 F 98.3 F Pulse Rate 98 103 H Respiratory Rate 20 20 Blood Pressure 143/64 H 127/65 Pulse Oximetry 95 95 92 Oxygen Delivery Nasal Cannula Oxygen Flow Rate 3 Fraction of Inspired Oxygen 10/06/25 06:27 10/06/25 08:23 10/06/25 08:57 Temperature 97.7 F 97.5 F L Pulse Rate 91 97 Respiratory Rate 20 20 Blood Pressure 154/90 H 145/89 H Pulse Oximetry 92 92 95 Oxygen Delivery Nasal Cannula Oxygen Flow Rate 3 Fraction of Inspired Oxygen 10/06/25 09:06 Temperature Pulse Rate 97 Respiratory Rate 20 Blood Pressure Pulse Oximetry 95 Oxygen Delivery Nasal Cannula Oxygen Flow Rate 3 Fraction of Inspired Oxygen 35 Intake/Output Intake/Output: Intake & Output 10/03/25 10/04/25 10/05/25 10/06/25 23:59 23:59 23:59 23:59 Intake Total 1950 8196 433 6435 Output Total 850 1700 1750 1000 Balance 1100 60 -1220 360 Meds/Results Medications: Active Medications Generic Name Dose Route Start Last Admin Trade Name Anthonyq PRN Reason Stop Dose Admin Acetaminophen 650 mg 10/01/25 15:50 10/04/25 21:45 Acetaminophen 325 Mg Tablet PO 650 mg Q4H PRN Administration Mild Pain (1-3) or Fever Albuterol/Ipratropium 3 ml 10/05/25 15:11 Ipratropium 0.5 Mg/Albuterol Sulfate 2.5 Mg (Base) Ampul.Neb 3 Ml INHALATION Q6HRT PRN Dyspnea Apixaban 5 mg 10/02/25 21:00 10/06/25 09:00 Apixaban 5 Mg Tablet PO 5 mg Q12HR ANAHI Administration Buspirone HCl 30 mg 10/02/25 09:00 10/06/25 09:00 Buspirone Hcl 10 Mg Tablet PO 30 mg BID ANAHI Administration Dexamethasone 6 mg 10/02/25 08:00 10/06/25 09:00 Dexamethasone 2 Mg Tablet PO 10/11/25 08:01 6 mg DAILY@0800 ANAHI Administration Dextrose 12.5 gm 10/01/25 16:13 Dextrose 50% 25 Gm/50 Ml Syringe IV PUSH PRN PRN Hypoglycemia Protocol Docosanol 1 applic 10/01/25 21:00 10/06/25 12:44 Docosanol 10% Cream 2 Gm TOPICAL 1 applic 5 TIMES DAILY ANAHI Administration Docusate Sodium 100 mg 10/01/25 17:00 10/06/25 09:00 Docusate Sodium 100 Mg Capsule PO 100 mg BID ANAHI Administration Duloxetine HCl 60 mg 10/02/25 09:00 10/06/25 09:01 Duloxetine Hcl 60 Mg Capsule.Dr PO 60 mg DAILY ANAHI Administration Ferrous Sulfate 325 mg 10/02/25 09:00 10/06/25 09:01 Ferrous Sulfate 325 Mg Tablet PO 325 mg Q48H ANAHI Administration Furosemide 20 mg 10/03/25 09:00 10/06/25 09:00 Furosemide 20 Mg Tablet PO 20 mg DAILY ANAHI Administration Glucagon 1 mg 10/01/25 16:13 Glucagon For Inj 1 Mg Vial IM PRN PRN Hypoglycemia Protocol Glucose 15 gm 10/01/25 16:13 Glucose Oral Gel 15 Gm Of Glucse In 37.5 Gm Tube PO PRN PRN Hypoglycemia Protocol Guaifenesin 1,200 mg 10/01/25 21:00 10/06/25 09:01 Guaifenesin 12 Hr 600 Mg Tabcr PO 1,200 mg Q12HR ANAHI Administration Hydroxyzine HCl 10 mg 10/01/25 19:50 10/06/25 07:52 Hydroxyzine Hcl 10 Mg Tablet PO 10 mg TID PRN Administration Anxiety Dextrose 1,000 mls @ 100 mls/hr 10/01/25 16:13 Dextrose 5% 1,000 Ml IVPB PRN PRN Hypoglycemia Protocol Ceftriaxone Sodium 1 gm/ 50 mls @ 100 mls/hr 10/06/25 05:00 10/06/25 05:00 Sodium Chloride IVPB 100 mls/hr Q24H ANAHI Administration Insulin Aspart 2 - 5 units 10/01/25 17:00 10/06/25 12:49 Insulin Aspart (*Bkc) 100 Units/Ml SUB-Q Not Given TIDWM ANAHI Protocol Leflunomide 20 mg 10/02/25 09:00 10/06/25 09:00 Leflunomide 20 Mg Tablet PO 20 mg DAILY ANAHI Administration Lidocaine 1 patch 10/01/25 21:30 Lidocaine 5% Patch TRANSDERM DAILY PRN pain Loratadine 10 mg 10/01/25 21:00 10/05/25 20:06 Loratadine 10 Mg Tablet PO 10 mg HS ANAHI Administration Home Med ( 2.5 mg 10/01/25 22:00 10/06/25 09:06 Riociguat [Adempas] PO 10/31/25 21:59 2.5 mg 2.5 Mg Tablet) Q8HR ANAHI Administration Ondansetron HCl 4 mg 10/01/25 15:50 Ondansetron Inj 4 Mg/2 Ml Vial IV PUSH Q4H PRN Nausea Oxycodone HCl 5 mg 10/01/25 16:11 Oxycodone Hcl (*Crx) 5 Mg Tab Ir PO Q4H PRN Pain Rated 7-10 Oxymetazoline HCl 1 spray 10/03/25 21:00 10/06/25 09:02 Oxymetazoline Hcl 0.05% Julio 15 Ml Btl (*Bkc) NASAL 1 spray Q12HR ANAHI Administration Pantoprazole Sodium 40 mg 10/01/25 21:30 10/06/25 09:00 Pantoprazole 40 Mg Tablet PO 40 mg Q12HR ANAHI Administration Polyethylene Glycol 17 gm 10/03/25 23:13 10/06/25 10:04 Polyethylene Glycol 3350 17 Gm Powd.Pack PO 17 gm QAM PRN Administration Constipation Pravastatin Sodium 40 mg 10/01/25 21:00 10/05/25 20:06 Pravastatin Sodium 20 Mg Tablet PO 40 mg HS ANAHI Administration Senna 8.6 mg 10/01/25 19:50 10/06/25 10:03 Sennosides 8.6 Mg Tablet PO 8.6 mg BID PRN Administration Constipation Sodium Chloride 1 spray 10/03/25 12:00 10/06/25 12:44 Saline 0.65% Julio Soln 44 Ml Btl NASAL 1 spray Q6HR ANAHI Administration Sodium Chloride 1 applic 10/03/25 23:12 Sodium Chloride Nasal Gel 14.1 Gm NASAL QID PRN Nasal Congestion Trazodone HCl 100 mg 10/01/25 21:00 10/05/25 20:06 Trazodone Hcl 50 Mg Tablet PO 100 mg HS ANAHI Administration Valacyclovir HCl 500 mg 10/01/25 21:00 10/05/25 20:06 Valacyclovir Hcl 500 Mg Tablet PO 500 mg HS ANAHI Administration Radiology Results: ITS Impressions Chest X-Ray 10/01/25 14:06 Impression: No acute cardiopulmonary abnormality. Chest CTA 10/01/25 15:20 IMPRESSION: 1. Pulmonary embolism subsegmental pulmonary artery right lower lobe, small thrombus burden. 2: Patchy faint groundglass opacities. Differential diagnosis includes pneumonia, early mild edema, hypersensitivity pneumonitis and nonspecific interstitial pneumonia. Venous Doppler Study 10/03/25 11:57 IMPRESSION: 1. No DVT either leg. Retroperitoneum Ultrasound 10/04/25 10:21 IMPRESSION: 1. 1.3 similar right renal cyst. Otherwise normal kidneys without hydronephrosis. Labs Labs: Laboratory Results - last 24 hr 10/05/25 10/05/25 10/06/25 16:17 21:16 07:45 POC Capillary Glucose 335 H 207 H 121 H Stl Occult Blood (IFOB) 10/06/25 10/06/25 12:44 13:12 POC Capillary Glucose 286 H Stl Occult Blood (IFOB) Positive H
[2025-10-06 15:17] LABS: Hematocrit 30.8 % (37.0-47.0); Hemoglobin 10.0 g/dL (12.0-15.0)
--- NOTE | 2025-10-06 15:23 | PCPTNOTE ---
Attempted to see pt for physical therapy and she refused stating not today, I've been sitting up all day. Will cont per POC
[2025-10-06] MEDS: INSULIN ASPART (*BKC) 100 UNITS/ML SUB-Q (17:13)
[2025-10-06] MEDS: PRAVASTATIN SODIUM 20 MG TABLET 40 MG PO (20:48)
[2025-10-06] MEDS: LORATADINE 10 MG TABLET PO (20:49)
[2025-10-06] MEDS: SODIUM CHLORIDE NASAL GEL 14.1 GM 1 APPLIC NASAL (21:10)
--- NOTE | 2025-10-06 22:11 | PM.PNPUL ---
Progress Note: A&P Assessment and Plan (1) Pneumonia due to COVID-19 virus: Code(s): U07.1 - COVID-19; J12.89 - Other viral pneumonia Status: Acute Assessment and Plan: 10/01/25 PCR is positive for SARS-CoV-2, she had symptoms for a week before coming in, initially symptoms started around Thanksgiving with increasing cough, sputum with mild hemoptysis, shortness of breath, small increase in troponin. She is on remdesivir and dexamethasone, oxygen, does not want to take bronchodilator because she says is does not feel good in her mouth with scattered sores, probable aphthous ulcers consistent with her viral infection. She does not have wheezing, does not appear to need bronchodilator therapy. (2) Chronic hypoxic respiratory failure, on home oxygen therapy: Code(s): J96.11 - Chronic respiratory failure with hypoxia; Z99.81 - Dependence on supplemental oxygen Status: Acute Assessment and Plan: She has worn oxygen since diagnosed with lung COVID August 2020, she is currently on 3 L around the clock at home, on admission saturation was lower on her usual O2 and she is currently on higher flow between 5 and 7 L with adequate oxygenation, saturation 95%. She is now on 4 L, close to her 3 L.min baseline. (3) Pulmonary embolism of right lower lobe: Code(s): I26.99 - Other pulmonary embolism without acute cor pulmonale Status: Acute Assessment and Plan: CTA on 10/01/25 shows small clot burden to the vessels of the right lower lobe. She has chronic right heart failure, echo is worse compared to February of 2024 coma she is on oral anticoagulants, Eliquis, initially was on heparin. She is having some mild epistaxis. She has scant blood in both nostrils. She uses O2 at home, has not had this problems before. She is on humidified O2. She is using [place] gel to nares and Afrin, epistaxis is mild. Dr Tariq note says that she has had Pe in the past. (4) Pulmonary arterial hypertension: Code(s): I27.21 - Secondary pulmonary arterial hypertension Status: Acute Assessment and Plan: Echo this admission shows right ventricular systolic pressure 99, this is a chronic problem, in February 2024 RVSP was 79 mmHg, secondary and due to untreated HUSSAIN plus RA, long COVID. She wears O2 at home 2 L /min all the time. does not want sleep issues addressed. She is not active at home, does not want testing related to O2, sleep. Plan Overall better, O2 need is lower. Less epistaxis. Continue Rx for COVID pneumonia; remdesivir and dexamethasone. She does not have severe oxygen issues, normally is on 3 L at home for long COVID and now is on 4L /min, with a saturation 92-94% Subjective Date/time seen: 10/06/25 22:11 Interval history: Interval history: Oct 04, hospital follow up visit: 85-year-old woman with COVID pneumonia and new small subsegmental pulmonary artery embolus right lower lobe, obstructive sleep apnea who has not been using PAP therapy for the past several years due to poor tolerance. She continues is having small amount of blood from her nose and coughing with light streaks of blood and small amounts of sputum. O2 need is lower, 4 L.min, sat 93%. No fevers. Temp 96.7?, pulse 95 beats per minute respirations 20-24 per minute blood pressure 148/73 saturation 94% on 4 liters/minute. She appears tired. She is alert and oriented. Can speak in short sentences. Her CTA was October 01, BUN and creatinine continue to increase, BUN 78 (74) and creat 2.03 (2.11). Baseline values 53 / 1.88. Oct 03, 2025, new consult; Sayra Glass is an 85-year-old woman who lives at [facility], has been there a year after an episode of pancreatitis. She is a never-smoker, has HUSSAIN diagnosed 3-4 years ago, says it she never had 1 good night using PAP, could not tolerate it, and her skimmer Dr Edward Sidhu retired. Her primary is Dr. Diaz, he is in charge of her O2 and all her medications. She does wear O2 3 L/min around the clock. She was admitted Dec 2 with shortness of breath, productive cough mostly white with scant blood, fatigue, chest soreness, maybe costochondritis, mouth sores, started after the when she was eating with 15 people. She is not aware of being with any sick contacts. She has COVID now, and had it initially Aug 2020, was seen in ER here. She had (-) Fever, (+) Nausea, does have a history of CHF, on Eliquis. She has a previous history of pulmonary embolism, on anticoagulation with initially warfarin, now on Eliquis. She is complaining of constipation, has irritable bowel, has not had a bowel movement since Tuesday. This is a little long for her to go without a BM. She s complaining of bleeding from both nostrils. She tells me she is not taking more nebulized bronchodilator because it hurts her mouth. She has a few white lesions in her mouth, appears to be after this ulcers. She does not have bronchospasm and never smoked, so stopping the bronchodilator therapy is not a problem. Her admission testing showed a (+) PCR of COVID, and her CTA showed subsegmental pulmonary emboli to the artery in the right lower lobe with a small thrombus burden and no right heart failure. She was started on remdesivir and dexamethasone, O2 at 5 L/min, echo shows severe pulmonary hypertension with an estimated pulmonary arterial pressure of 99, right ventricle is severely enlarged, right ventricular systolic function severely reduced. The left ventricle is hyperdynamic with EF greater than 70% and increased left ventricular wall thickness. She has not had leg swelling at home. She does not know if she snores, she sleeps poorly, goes to bed after 3 in the morning and wakens 4 hours later, says she does not nap during the day. Rarely has dreams. Denies waking at night to urinate. She really does not have any interested at all in revisited problems with sleep disordered breathing, really stops me from talking about it at all. She tells me that her son lost his 2 and a half years ago, really hard on the patient who did not want to go into [facility]. She does not like the food, the staff, the living arrangement. She does not involve her self with all the activities, stays in her room more often than not. DATA * 10/01/2025; positive SARS-CoV-2 PCR; negative influenza A and B, RSV. * 10/01/25 CXR ; No acute cardiopulmonary abnormality. * 10/01/25 CTA; IMPRESSION: 1. Pulmonary embolism subsegmental pulmonary artery right lower lobe, small thrombus burden. 2: Patchy faint groundglass opacities. Differential diagnosis includes pneumonia, early mild edema, hypersensitivity pneumonitis and nonspecific interstitial pneumonia. * 10/03/25; venous dopplers ; No DVT either leg. * wbc 6.2 k, 77% neutrophils, 7% bands * 10/01/25 echo; Complete two-dimensional, color flow and Doppler transthoracic echocardiogram is performed. 2. Left ventricular chamber dimension is normal. 3. D shaped interventricular septum during systole and diastole suggestive of pressure and volume overload of right ventricle. 4. There is severe concentric increased left ventricular wall thickness. 5. Left ventricular systolic function is hyperdynamic, estimated at >70. 6. The left ventricular diastolic function is grade I diastolic dysfunction. 7. E/e' 12 is mildly elevated. 8. Right ventricular chamber dimension is severely enlarged. 9. Right ventricular systolic function is severely reduced and with abnormal TAPSE 1.0 cm. 10. Left atrial chamber dimension is mildly enlarged. 11. Right atrial chamber dimension is moderately enlarged. 12. There is moderate aortic valve sclerosis. 13. There is mild aortic valve stenosis with a peak velocity of 253 cm/s,mean gradient of 14 mmHg, and aortic valve area of 1.5 cm2. 14. The mitral valve has a moderately calcified annulus. 15. There is severe tricuspid valve regurgitation. 16. Severe pulmonary hypertension, estimated pulmonary arterial systolic pressure is 99 mmHg. 17. There is trivial pericardial effusion. Objective Data Vital Signs Vital Signs: Vital Signs - 24 hr 10/06/25 06:27 10/06/25 08:23 10/06/25 08:57 Temperature 36.5 C 36.4 C L Pulse Rate 91 97 Respiratory Rate 20 20 Blood Pressure 154/90 H 145/89 H Pulse Oximetry 92 92 95 Oxygen Delivery Nasal Cannula Oxygen Flow Rate 3 Fraction of Inspired Oxygen 10/06/25 09:06 10/06/25 16:00 Temperature 36.6 C Pulse Rate 97 68 Respiratory Rate 20 20 Blood Pressure 134/62 Pulse Oximetry 95 96 Oxygen Delivery Nasal Cannula Oxygen Flow Rate 3 Fraction of Inspired Oxygen 35 Intake/Output Intake/Output: Intake & Output 10/03/25 10/04/25 10/05/25 10/06/25 23:59 23:59 23:59 23:59 Intake Total 1950 6100 886 4649 Output Total 850 1700 1750 1825 Balance 1100 60 -1220 1815 Meds/Results Medications: Active Medications Generic Name Dose Route Start Last Admin Trade Name Freq PRN Reason Stop Dose Admin Acetaminophen 650 mg 10/01/25 15:50 10/04/25 21:45 Acetaminophen 325 Mg Tablet PO 650 mg Q4H PRN Administration Mild Pain (1-3) or Fever Albuterol/Ipratropium 3 ml 10/05/25 15:11 Ipratropium 0.5 Mg/Albuterol Sulfate 2.5 Mg (Base) Ampul.Neb 3 Ml INHALATION Q6HRT PRN Dyspnea Apixaban 5 mg 10/02/25 21:00 10/06/25 20:49 Apixaban 5 Mg Tablet PO 5 mg Q12HR ANAHI Administration Buspirone HCl 30 mg 10/02/25 09:00 10/06/25 16:18 Buspirone Hcl 10 Mg Tablet PO 30 mg BID ANAHI Administration Dexamethasone 6 mg 10/02/25 08:00 10/06/25 09:00 Dexamethasone 2 Mg Tablet PO 10/11/25 08:01 6 mg DAILY@0800 ANAHI Administration Dextrose 12.5 gm 10/01/25 16:13 Dextrose 50% 25 Gm/50 Ml Syringe IV PUSH PRN PRN Hypoglycemia Protocol Docosanol 1 applic 10/01/25 21:00 10/06/25 20:50 Docosanol 10% Cream 2 Gm TOPICAL 1 applic 5 TIMES DAILY ANAHI Administration Docusate Sodium 100 mg 10/01/25 17:00 10/06/25 16:18 Docusate Sodium 100 Mg Capsule PO 100 mg BID ANAHI Administration Duloxetine HCl 60 mg 10/02/25 09:00 10/06/25 09:01 Duloxetine Hcl 60 Mg Capsule.Dr PO 60 mg DAILY ANAHI Administration Ferrous Sulfate 325 mg 10/02/25 09:00 10/06/25 09:01 Ferrous Sulfate 325 Mg Tablet PO 325 mg Q48H ANAHI Administration Furosemide 20 mg 10/03/25 09:00 10/06/25 09:00 Furosemide 20 Mg Tablet PO 20 mg DAILY ANAHI Administration Glucagon 1 mg 10/01/25 16:13 Glucagon For Inj 1 Mg Vial IM PRN PRN Hypoglycemia Protocol Glucose 15 gm 10/01/25 16:13 Glucose Oral Gel 15 Gm Of Glucse In 37.5 Gm Tube PO PRN PRN Hypoglycemia Protocol Guaifenesin 1,200 mg 10/01/25 21:00 10/06/25 20:49 Guaifenesin 12 Hr 600 Mg Tabcr PO 1,200 mg Q12HR ANAHI Administration Hydroxyzine HCl 10 mg 10/01/25 19:50 10/06/25 07:52 Hydroxyzine Hcl 10 Mg Tablet PO 10 mg TID PRN Administration Anxiety Dextrose 1,000 mls @ 100 mls/hr 10/01/25 16:13 Dextrose 5% 1,000 Ml IVPB PRN PRN Hypoglycemia Protocol Ceftriaxone Sodium 1 gm/ 50 mls @ 100 mls/hr 10/06/25 05:00 10/06/25 05:00 Sodium Chloride IVPB 100 mls/hr Q24H ANAHI Administration Insulin Aspart 2 - 5 units 10/01/25 17:00 10/06/25 17:13 Insulin Aspart (*Bkc) 100 Units/Ml SUB-Q 4 units TIDWM ANAHI Administration Protocol Leflunomide 20 mg 10/02/25 09:00 10/06/25 09:00 Leflunomide 20 Mg Tablet PO 20 mg DAILY ANAHI Administration Lidocaine 1 patch 10/01/25 21:30 Lidocaine 5% Patch TRANSDERM DAILY PRN pain Loratadine 10 mg 10/01/25 21:00 10/06/25 20:49 Loratadine 10 Mg Tablet PO 10 mg HS ANAHI Administration Home Med ( 2.5 mg 10/01/25 22:00 10/06/25 21:10 Riociguat [Adempas] PO 10/31/25 21:59 2.5 mg 2.5 Mg Tablet) Q8HR ANAHI Administration Ondansetron HCl 4 mg 10/01/25 15:50 Ondansetron Inj 4 Mg/2 Ml Vial IV PUSH Q4H PRN Nausea Oxycodone HCl 5 mg 10/01/25 16:11 Oxycodone Hcl (*Crx) 5 Mg Tab Ir PO Q4H PRN Pain Rated 7-10 Oxymetazoline HCl 1 spray 10/03/25 21:00 10/06/25 20:49 Oxymetazoline Hcl 0.05% Julio 15 Ml Btl (*Bkc) NASAL 1 spray Q12HR ANAHI Administration Pantoprazole Sodium 40 mg 10/01/25 21:30 10/06/25 20:49 Pantoprazole 40 Mg Tablet PO 40 mg Q12HR ANAHI Administration Polyethylene Glycol 17 gm 10/03/25 23:13 10/06/25 10:04 Polyethylene Glycol 3350 17 Gm Powd.Pack PO 17 gm QAM PRN Administration Constipation Pravastatin Sodium 40 mg 10/01/25 21:00 10/06/25 20:48 Pravastatin Sodium 20 Mg Tablet PO 40 mg HS ANAHI Administration Senna 8.6 mg 10/01/25 19:50 10/06/25 10:03 Sennosides 8.6 Mg Tablet PO 8.6 mg BID PRN Administration Constipation Sodium Chloride 1 spray 10/03/25 12:00 10/06/25 17:16 Saline 0.65% Julio Soln 44 Ml Btl NASAL Not Given Q6HR ANAHI Sodium Chloride 1 applic 10/03/25 23:12 10/06/25 21:10 Sodium Chloride Nasal Gel 14.1 Gm NASAL 1 applic QID PRN Administration Nasal Congestion Trazodone HCl 100 mg 10/01/25 21:00 10/06/25 20:49 Trazodone Hcl 50 Mg Tablet PO 100 mg HS ANAHI Administration Valacyclovir HCl 500 mg 10/01/25 21:00 10/06/25 20:49 Valacyclovir Hcl 500 Mg Tablet PO 500 mg HS ANAHI Administration Radiology Results: ITS Impressions Chest X-Ray 10/01/25 14:06 Impression: No acute cardiopulmonary abnormality. Chest CTA 10/01/25 15:20 IMPRESSION: 1. Pulmonary embolism subsegmental pulmonary artery right lower lobe, small thrombus burden. 2: Patchy faint groundglass opacities. Differential diagnosis includes pneumonia, early mild edema, hypersensitivity pneumonitis and nonspecific interstitial pneumonia. Venous Doppler Study 10/03/25 11:57 IMPRESSION: 1. No DVT either leg. Retroperitoneum Ultrasound 10/04/25 10:21 IMPRESSION: 1. 1.3 similar right renal cyst. Otherwise normal kidneys without hydronephrosis. Labs Labs: Laboratory Results - last 24 hr 10/06/25 10/06/25 10/06/25 07:45 12:44 13:12 Hgb Hct POC Capillary Glucose 121 H 286 H Stl Occult Blood (IFOB) Positive H 10/06/25 10/06/25 15:09 16:44 Hgb 10.0 L Hct 30.8 L POC Capillary Glucose 322 H Stl Occult Blood (IFOB)
[2025-10-07] MEDS: SALINE 0.65% NAS SOLN 44 ML BTL 1 SPRAY NASAL ×4 (00:45→17:12)
[2025-10-07 05:14] LABS: Hematocrit 28.5 % (37.0-47.0); Hemoglobin 9.2 g/dL (12.0-15.0); Mean Corpuscular HGB Conc 32.3 g/dl (32-36); Mean Corpuscular Hemoglobin 30.1 pg (26-34); Mean Corpuscular Volume 93.1 fl (80-100); Platelet Count Result 217 k/mm3 (150-375); Red Blood Count 3.06 M/mm3 (4.2-5.4); White Blood Count 8.9 K/mm3 (4.5-10.0)
[2025-10-07 05:36] LABS: Anion Gap 2 mmol/L (4-12); Blood Urea Nitrogen 45 mg/dL (7-17); Calcium 8.5 mg/dL (8.4-10.2); Carbon Dioxide 24 mmol/L (22-30); Chloride 110 mmol/L (98-107); Estimated CRCL calculation 29 ml/min; Estimated Glomerular Filt Rate 42; Glucose 158 mg/dL (65-110); Potassium 4.0 mmol/L (3.4-5.0); Sodium 136 mmol/L (137-145)
[2025-10-07] MEDS: cefTRIAXone 1 GM in SODIUM CHLORIDE 0.9% IV 50 ML 100 ML IVPB (05:48)
[2025-10-07 06:22] VITALS: BP 153/90; PULSE 100; RESP 20; TEMP 36.4; O2SAT 94
[2025-10-07] MEDS: guaiFENesin 12 HR 600 MG TABCR 1200 MG PO ×2 (10:16→22:26)
[2025-10-07] MEDS: DOCUSATE SODIUM 100 MG CAPSULE PO ×2 (10:16→17:05)
[2025-10-07] MEDS: APIXABAN 5 MG TABLET PO ×2 (10:16→22:26)
[2025-10-07 10:17] VITALS: PULSE 87; RESP 20; O2SAT 94
[2025-10-07] MEDS: LEFLUNOMIDE 20 MG TABLET PO (10:17)
[2025-10-07] MEDS: PANTOPRAZOLE 40 MG TABLET PO ×2 (10:17→22:26)
[2025-10-07] MEDS: FUROSEMIDE 20 MG TABLET PO (10:17)
[2025-10-07] MEDS: DULoxetine HCL 60 MG CAPSULE.DR PO (10:17)
--- NOTE | 2025-10-07 11:09 | PM.PNPUL ---
Progress Note: A&P Assessment and Plan (1) Pneumonia due to COVID-19 virus: Code(s): U07.1 - COVID-19; J12.89 - Other viral pneumonia Status: Acute Assessment and Plan: 10/01/25 PCR is positive for SARS-CoV-2, she had symptoms for a week before coming in, initially symptoms started around Thanksgiving with increasing cough, sputum with mild hemoptysis, shortness of breath, small increase in troponin. She is on remdesivir and dexamethasone, oxygen, does not want to take bronchodilator because she says is does not feel good in her mouth with scattered sores, probable aphthous ulcers consistent with her viral infection. She does not have wheezing, does not appear to need bronchodilator therapy. 10/07/2025: Patient finished remdesivir on 10/05/2025. Continues on dexamethasone 6 mg q.day. plan: Patient continues to slowly improve. She is weak and debilitated. Currently on no bronchodilators with no wheezing. (2) Chronic hypoxic respiratory failure, on home oxygen therapy: Code(s): J96.11 - Chronic respiratory failure with hypoxia; Z99.81 - Dependence on supplemental oxygen Status: Acute Assessment and Plan: She has worn oxygen since diagnosed with lung COVID August 2020, she is currently on 3 L around the clock at home, on admission saturation was lower on her usual O2 and she is currently on higher flow between 5 and 7 L with adequate oxygenation, saturation 95%. She is now on 4 L, close to her 3 L.min baseline. 10/07/2025:Her oxygen levels are actually improved from her baseline 3 L 24/7 and currently she is on 2 L at rest. Plan: I will obtain an overnight oximetry on 2 L nasal cannula tonight. Goal saturation 90-94%, wean as tolerated. (3) Pulmonary embolism of right lower lobe: Code(s): I26.99 - Other pulmonary embolism without acute cor pulmonale Status: Acute Assessment and Plan: This is a provoked PE by concurrent COVID infection. CTA on 10/01/25 shows small clot burden to the vessels of the right lower lobe. She has chronic right heart failure, echo is worse compared to February of 2024 coma she is on oral anticoagulants, Eliquis, initially was on heparin. She is having some mild epistaxis. She has scant blood in both nostrils. She uses O2 at home, has not had this problems before. She is on humidified O2. She is using [place] gel to nares and Afrin, epistaxis is mild. Dr Tariq note says that she has had Pe in the past. 10/07/2025: Patient continues on apixaban 5 mg p.o. q.12 hours. (4) Pulmonary arterial hypertension: Code(s): I27.21 - Secondary pulmonary arterial hypertension Status: Acute Assessment and Plan: Echo this admission shows right ventricular systolic pressure 99, this is a chronic problem, in February 2024 RVSP was 79 mmHg, secondary and due to untreated HUSSAIN plus RA, long COVID. She wears O2 at home 2 L /min all the time. does not want sleep issues addressed. She is not active at home, does not want testing related to O2, sleep. Subjective Date/time seen: 10/07/25 11:09 Interval history: 10/07/2025: Patient tells me her short of breath is better but she has continued shortness of breath at rest, she has continued dyspnea on exertion in bed. She also complains of hemoptysis. When I enter the room she was on 3 L nasal cannula saturation 95%. I decreased her to 2 L nasal cannula saturations were 93%. White blood cell count 8.9, creatinine is improving and now 1.23. Yesterday she was positive 1.8 L. Cumulative she is positive 5.1 L since admission. Her weight today is 69.7. 10/04/25 21:47 Interval history: Oct 04, hospital follow up visit: 85-year-old woman with COVID pneumonia and new small subsegmental pulmonary artery embolus right lower lobe, obstructive sleep apnea who has not been using PAP therapy for the past several years due to poor tolerance. She continues is having small amount of blood from her nose and coughing with light streaks of blood and small amounts of sputum. O2 need is lower, 4 L.min, sat 93%. No fevers. Temp 96.7?, pulse 95 beats per minute respirations 20-24 per minute blood pressure 148/73 saturation 94% on 4 liters/minute. She appears tired. She is alert and oriented. Can speak in short sentences. Her CTA was October 01, BUN and creatinine continue to increase, BUN 78 (74) and creat 2.03 (2.11). Baseline values 53 / 1.88. Oct 03, 2025, new consult; Sayra Glass is an 85-year-old woman who lives at [facility], has been there a year after an episode of pancreatitis. 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 Her primary is Dr. Diaz, he is in charge of her O2 and all her medications. She does wear O2 3 L/min around the clock. She was admitted Oct 01 with shortness of breath, productive cough mostly white with scant blood, fatigue, chest soreness, maybe costochondritis, mouth sores, started after the when she was eating with 15 people. She is not aware of being with any sick contacts. She has COVID now, and had it initially Aug 2020, was seen in ER here. She had (-) Fever, (+) Nausea, does have a history of CHF, on Eliquis. She has a previous history of pulmonary embolism, on anticoagulation with initially warfarin, now on Eliquis. She is complaining of constipation, has irritable bowel, has not had a bowel movement since Tuesday. This is a little long for her to go without a BM. She s complaining of bleeding from both nostrils. She tells me she is not taking more nebulized bronchodilator because it hurts her mouth. She has a few white lesions in her mouth, appears to be after this ulcers. She does not have bronchospasm and never smoked, so stopping the bronchodilator therapy is not a problem. Her admission testing showed a (+) PCR of COVID, and her CTA showed subsegmental pulmonary emboli to the artery in the right lower lobe with a small thrombus burden and no right heart failure. She was started on remdesivir and dexamethasone, O2 at 5 L/min, echo shows severe pulmonary hypertension with an estimated pulmonary arterial pressure of 99, right ventricle is severely enlarged, right ventricular systolic function severely reduced. The left ventricle is hyperdynamic with EF greater than 70% and increased left ventricular wall thickness. She has not had leg swelling at home. She does not know if she snores, she sleeps poorly, goes to bed after 3 in the morning and wakens 4 hours later, says she does not nap during the day. Rarely has dreams. Denies waking at night to urinate. She really does not have any interested at all in revisited problems with sleep disordered breathing, really stops me from talking about it at all. She tells me that her son lost his 2 and a half years ago, really hard on the patient who did not want to go into [facility]. She does not like the food, the staff, the living arrangement. She does not involve her self with all the activities, stays in her room more often than not. DATA * 10/01/2025; positive SARS-CoV-2 PCR; negative influenza A and B, RSV. * 10/01/25 CXR ; No acute cardiopulmonary abnormality. * 10/01/25 CTA; IMPRESSION: 1. Pulmonary embolism subsegmental pulmonary artery right lower lobe, small thrombus burden. 2: Patchy faint groundglass opacities. Differential diagnosis includes pneumonia, early mild edema, hypersensitivity pneumonitis and nonspecific interstitial pneumonia. * 10/03/25; venous dopplers ; No DVT either leg. * wbc 6.2 k, 77% neutrophils, 7% bands * 10/01/25 echo; Complete two-dimensional, color flow and Doppler transthoracic echocardiogram is performed. 2. Left ventricular chamber dimension is normal. 3. D shaped interventricular septum during systole and diastole suggestive of pressure and volume overload of right ventricle. 4. There is severe concentric increased left ventricular wall thickness. 5. Left ventricular systolic function is hyperdynamic, estimated at >70. 6. The left ventricular diastolic function is grade I diastolic dysfunction. 7. E/e' 12 is mildly elevated. 8. Right ventricular chamber dimension is severely enlarged. 9. Right ventricular systolic function is severely reduced and with abnormal TAPSE 1.0 cm. 10. Left atrial chamber dimension is mildly enlarged. 11. Right atrial chamber dimension is moderately enlarged. 12. There is moderate aortic valve sclerosis. 13. There is mild aortic valve stenosis with a peak velocity of 253 cm/s,mean gradient of 14 mmHg, and aortic valve area of 1.5 cm2. 14. The mitral valve has a moderately calcified annulus. 15. There is severe tricuspid valve regurgitation. 16. Severe pulmonary hypertension, estimated pulmonary arterial systolic pressure is 99 mmHg. 17. There is trivial pericardial effusion. Review of Systems Constitutional: Constitutional: Reports no additional constitutional complaints Eyes: Eyes: Reports no additional eye complaints ENT: Reports system reviewed and no additional complaints, except as documented Cardiovascular: Cardiovascular: Reports no additional cardiovascular complaints Respiratory: Respiratory: Reports no additional respiratory complaints Gastrointestinal: Gastrointestinal: Reports no additional gastrointestinal complaints Musculoskeletal: Musculoskeletal: Reports no additional musculoskeletal complaints Neurologic: Reports system reviewed and no additional complaints, except as documented Psychiatric: Psychiatric: Reports no additional psychiatric complaints Endocrine: Endocrine: Reports no additional endocrine complaints Hematologic/Lymphatic: Hematologic/Lymphatic: Reports no additional hematologic/lymphatic complaints Allergic/Immunologic: Allergic/Immunologic: Reports no additional allergic/immunologic complaints Exam Const: General: cooperative, healthy appearing and comfortable Orientation/consciousness: oriented to person, oriented to place and oriented to time HENMT: Head: normal to inspection Ears: hearing grossly normal bilaterally Eyes: General: appearance normal, both eyes and all related structures Neck: Neck: normal visual inspection Chest: Chest palpation & inspection: normal inspection of the chest Resp: Effort & Inspection: normal respiratory effort and able to speak in complete sentences Auscultation: no crackles, no rales, no rhonchi, no wheezes and lung sounds not diminished Other: few crackles throughout. Cardio: Jugular venous distension: no JVD GI: Inspection: normal to inspection GI Palp: No abdominal tenderness Skin: General skin exam: normal color Neuro: General: oriented to person, oriented to place and oriented to time Extrem: General: normal to inspection Other: Trace edema Psych: Appearance: grossly normal Objective Data Vital Signs Vital Signs: Vital Signs - 24 hr 10/06/25 16:00 10/06/25 20:00 10/06/25 22:35 Temperature 36.6 C 36.4 C Pulse Rate 68 95 Respiratory Rate 20 20 Blood Pressure 134/62 144/86 H Pulse Oximetry 96 93 93 Oxygen Delivery Nasal Cannula Oxygen Flow Rate 3 Fraction of Inspired Oxygen 10/07/25 06:22 10/07/25 10:17 Temperature 36.4 C Pulse Rate 100 87 Respiratory Rate 20 20 Blood Pressure 153/90 H Pulse Oximetry 94 94 Oxygen Delivery Nasal Cannula Oxygen Flow Rate 3 Fraction of Inspired Oxygen 35 Intake/Output Intake/Output: Intake & Output 10/04/25 10/05/25 10/06/25 10/07/25 23:59 23:59 23:59 23:59 Intake Total 4220 401 6746 640 Output Total 1700 1750 1825 900 Balance 60 -1220 1865 -260 Meds/Results Medications: Active Medications Generic Name Dose Route Start Last Admin Trade Name Freq PRN Reason Stop Dose Admin Acetaminophen 650 mg 10/01/25 15:50 10/04/25 21:45 Acetaminophen 325 Mg Tablet PO 650 mg Q4H PRN Administration Mild Pain (1-3) or Fever Albuterol/Ipratropium 3 ml 10/05/25 15:11 Ipratropium 0.5 Mg/Albuterol Sulfate 2.5 Mg (Base) Ampul.Neb 3 Ml INHALATION Q6HRT PRN Dyspnea Apixaban 5 mg 10/02/25 21:00 10/07/25 10:16 Apixaban 5 Mg Tablet PO 5 mg Q12HR ANAHI Administration Buspirone HCl 30 mg 10/02/25 09:00 10/07/25 10:18 Buspirone Hcl 10 Mg Tablet PO 30 mg BID ANAHI Administration Dexamethasone 6 mg 10/02/25 08:00 10/07/25 10:17 Dexamethasone 2 Mg Tablet PO 10/11/25 08:01 6 mg DAILY@0800 ANAHI Administration Dextrose 12.5 gm 10/01/25 16:13 Dextrose 50% 25 Gm/50 Ml Syringe IV PUSH PRN PRN Hypoglycemia Protocol Docosanol 1 applic 10/01/25 21:00 10/07/25 10:23 Docosanol 10% Cream 2 Gm TOPICAL Not Given 5 TIMES DAILY ANAHI Docusate Sodium 100 mg 10/01/25 17:00 10/07/25 10:16 Docusate Sodium 100 Mg Capsule PO 100 mg BID ANAHI Administration Duloxetine HCl 60 mg 10/02/25 09:00 10/07/25 10:17 Duloxetine Hcl 60 Mg Capsule.Dr PO 60 mg DAILY ANAHI Administration Ferrous Sulfate 325 mg 10/02/25 09:00 10/06/25 09:01 Ferrous Sulfate 325 Mg Tablet PO 325 mg Q48H ANAHI Administration Furosemide 20 mg 10/03/25 09:00 10/07/25 10:17 Furosemide 20 Mg Tablet PO 20 mg DAILY AANHI Administration Glucagon 1 mg 10/01/25 16:13 Glucagon For Inj 1 Mg Vial IM PRN PRN Hypoglycemia Protocol Glucose 15 gm 10/01/25 16:13 Glucose Oral Gel 15 Gm Of Glucse In 37.5 Gm Tube PO PRN PRN Hypoglycemia Protocol Guaifenesin 1,200 mg 10/01/25 21:00 10/07/25 10:16 Guaifenesin 12 Hr 600 Mg Tabcr PO 1,200 mg Q12HR ANAHI Administration Hydroxyzine HCl 10 mg 10/01/25 19:50 10/07/25 10:17 Hydroxyzine Hcl 10 Mg Tablet PO 10 mg TID PRN Administration Anxiety Dextrose 1,000 mls @ 100 mls/hr 10/01/25 16:13 Dextrose 5% 1,000 Ml IVPB PRN PRN Hypoglycemia Protocol Ceftriaxone Sodium 1 gm/ 50 mls @ 100 mls/hr 10/06/25 05:00 10/07/25 05:48 Sodium Chloride IVPB 100 mls/hr Q24H ANAHI Administration Insulin Aspart 2 - 5 units 10/01/25 17:00 10/07/25 10:25 Insulin Aspart (*Bkc) 100 Units/Ml SUB-Q Not Given TIDWM ANAHI Protocol Leflunomide 20 mg 10/02/25 09:00 10/07/25 10:17 Leflunomide 20 Mg Tablet PO 20 mg DAILY ANAHI Administration Lidocaine 1 patch 10/01/25 21:30 Lidocaine 5% Patch TRANSDERM DAILY PRN pain Loratadine 10 mg 10/01/25 21:00 10/06/25 20:49 Loratadine 10 Mg Tablet PO 10 mg HS ANAHI Administration Home Med ( 2.5 mg 10/01/25 22:00 10/07/25 05:49 Riociguat [Adempas] PO 10/31/25 21:59 2.5 mg 2.5 Mg Tablet) Q8HR ANAHI Administration Ondansetron HCl 4 mg 10/01/25 15:50 Ondansetron Inj 4 Mg/2 Ml Vial IV PUSH Q4H PRN Nausea Oxycodone HCl 5 mg 10/01/25 16:11 Oxycodone Hcl (*Crx) 5 Mg Tab Ir PO Q4H PRN Pain Rated 7-10 Pantoprazole Sodium 40 mg 10/01/25 21:30 10/07/25 10:17 Pantoprazole 40 Mg Tablet PO 40 mg Q12HR ANAHI Administration Polyethylene Glycol 17 gm 10/03/25 23:13 10/06/25 10:04 Polyethylene Glycol 3350 17 Gm Powd.Pack PO 17 gm QAM PRN Administration Constipation Pravastatin Sodium 40 mg 10/01/25 21:00 10/06/25 20:48 Pravastatin Sodium 20 Mg Tablet PO 40 mg HS ANAHI Administration Senna 8.6 mg 10/01/25 19:50 10/06/25 10:03 Sennosides 8.6 Mg Tablet PO 8.6 mg BID PRN Administration Constipation Sodium Chloride 1 spray 10/03/25 12:00 10/07/25 05:49 Saline 0.65% Julio Soln 44 Ml Btl NASAL 1 spray Q6HR ANAHI Administration Sodium Chloride 1 applic 10/03/25 23:12 10/06/25 21:10 Sodium Chloride Nasal Gel 14.1 Gm NASAL 1 applic QID PRN Administration Nasal Congestion Trazodone HCl 100 mg 10/01/25 21:00 10/06/25 20:49 Trazodone Hcl 50 Mg Tablet PO 100 mg HS ANHAI Administration Valacyclovir HCl 500 mg 10/01/25 21:00 10/06/25 20:49 Valacyclovir Hcl 500 Mg Tablet PO 500 mg HS ANAHI Administration Radiology Results: ITS Impressions Chest X-Ray 10/01/25 14:06 Impression: No acute cardiopulmonary abnormality. Chest CTA 10/01/25 15:20 IMPRESSION: 1. Pulmonary embolism subsegmental pulmonary artery right lower lobe, small thrombus burden. 2: Patchy faint groundglass opacities. Differential diagnosis includes pneumonia, early mild edema, hypersensitivity pneumonitis and nonspecific interstitial pneumonia. Venous Doppler Study 10/03/25 11:57 IMPRESSION: 1. No DVT either leg. Retroperitoneum Ultrasound 10/04/25 10:21 IMPRESSION: 1. 1.3 similar right renal cyst. Otherwise normal kidneys without hydronephrosis. Labs Labs: Laboratory Results - last 24 hr 10/06/25 10/06/25 10/06/25 12:44 13:12 15:09 WBC RBC Hgb 10.0 L Hct 30.8 L MCV MCH MCHC RDW Plt Count MPV Sodium Potassium Chloride Carbon Dioxide Anion Gap BUN Creatinine Estim Creat Clear Calc Estimated GFR Glucose POC Capillary Glucose 286 H Calcium Stl Occult Blood (IFOB) Positive H 10/06/25 10/07/25 10/07/25 16:44 04:41 08:02 WBC 8.9 RBC 3.06 L Hgb 9.2 L Hct 28.5 L MCV 93.1 MCH 30.1 MCHC 32.3 RDW 16.3 H Plt Count 217 MPV 10.2 Sodium 136 L Potassium 4.0 Chloride 110 H Carbon Dioxide 24 Anion Gap 2 L BUN 45 H D Creatinine 1.23 H Estim Creat Clear Calc 29 Estimated GFR 42 L Glucose 158 H POC Capillary Glucose 322 H 147 H Calcium 8.5 Stl Occult Blood (IFOB)
--- NOTE | 2025-10-07 13:29 | P.PNIM_ITS ---
Assessment and Plan Assessment and Plan (1) COVID-19: Code(s): U07.1 - COVID-19 Status: Acute (2) Pulmonary embolism of right lower lobe: Code(s): I26.99 - Other pulmonary embolism without acute cor pulmonale Status: Acute (3) Elevated troponin: Code(s): R79.89 - Other specified abnormal findings of blood chemistry Status: Acute (4) Diabetes: Code(s): E11.9 - Type 2 diabetes mellitus without complications Status: Chronic (5) Acute kidney injury superimposed on CKD: Code(s): N17.9 - Acute kidney failure, unspecified; N18.9 - Chronic kidney disease, unspecified Status: Acute (6) CHF (congestive heart failure): Code(s): I50.9 - Heart failure, unspecified Status: Acute (7) Hypertension: Code(s): I10 - Essential (primary) hypertension Status: Acute Plan 85-year-old with past medical history of pulmonary embolism, diabetes, pancreatitis, hypertension, and congestive heart failure, chronic respiratory failure on 3 L nasal cannula at home presented with worsening shortness of breath, feeling extremely weak.According to the son patient has a history of undissolve multiple PEs and sees a shake splitter at [place]. Tested positive for COVID.CT shows Pulmonary embolism subsegmental pulmonary artery right lower lobe, small thrombus burden and Patchy faint groundglass opacities. 1. Acute on chronic hypoxic respiratory failure: Improving Is on 3 L of O2 support, 3 L is her baseline Status post 5 days of remdesivir Continue with dexamethasone Pulmonary consult appreciated Appreciate oncology help Patient has been changed to Eliquis again due to small clot burden Echo reviewed Epistaxis has improved Continue with scheduled nasal saline Status post afrin, Humidified oxygen Continue with DuoNebs DVT study in bilateral leg is negative 2. Eyal I on pre-existing CKD: Improving kidney function Monitor kidney function Avoid nephrotoxins Renal USG unremarkable 3. Klebsiella UTI: Continue with ceftriaxone 4. Constipation: improved 5. Code status: Full 6. Disposition: Pending improvement/anticipate discharge within next 48-72 hours if continues to improve Time Spent With Patient Time with patient: 25 - 35 minutes Subjective Date/time seen: 10/07/25 13:29 Interval history: Slowly improving, currently on 3 L of O2 support which is at baseline Review of Systems Review of Systems: All systems reviewed & are unremarkable except as noted in HPI and below Exam Narrative: HEENT: PERRL, sclerae nonicteric, pharyngeal mucosa pink and intact NECK: No JVD CHEST: Normal effort, slight coarseness at bases but without crackles or wheezes HEART: NL S1/S2, regular, no murmur ABDOMEN: BS+, soft, nontender, no mass, no bruits EXTREMITIES: No cyanosis, edema, or clubbing NEUROLOGIC: CN intact and symmetric to inspection MUSCULOSKELETAL: Tone and strength symmetric but diffusely for over 5 PSYCH: Alert. Oriented to person, place, and time Objective Data Vital Signs Vital Signs: Vital Signs - 24 hr 10/06/25 16:00 10/06/25 20:00 10/06/25 22:35 Temperature 97.9 F 97.6 F Pulse Rate 68 95 Respiratory Rate 20 20 Blood Pressure 134/62 144/86 H Pulse Oximetry 96 93 93 Oxygen Delivery Nasal Cannula Oxygen Flow Rate 3 Fraction of Inspired Oxygen 10/07/25 06:22 10/07/25 10:17 Temperature 97.6 F Pulse Rate 100 87 Respiratory Rate 20 20 Blood Pressure 153/90 H Pulse Oximetry 94 94 Oxygen Delivery Nasal Cannula Oxygen Flow Rate 3 Fraction of Inspired Oxygen 35 Intake/Output Intake/Output: Intake & Output 10/04/25 10/05/25 10/06/25 10/07/25 23:59 23:59 23:59 23:59 Intake Total 2258 277 7084 640 Output Total 1700 1750 1825 900 Balance 60 -1220 1865 -260 Meds/Results Medications: Active Medications Generic Name Dose Route Start Last Admin Trade Name Freq PRN Reason Stop Dose Admin Acetaminophen 650 mg 10/01/25 15:50 10/04/25 21:45 Acetaminophen 325 Mg Tablet PO 650 mg Q4H PRN Administration Mild Pain (1-3) or Fever Albuterol/Ipratropium 3 ml 10/05/25 15:11 Ipratropium 0.5 Mg/Albuterol Sulfate 2.5 Mg (Base) Ampul.Neb 3 Ml INHALATION Q6HRT PRN Dyspnea Apixaban 5 mg 10/02/25 21:00 10/07/25 10:16 Apixaban 5 Mg Tablet PO 5 mg Q12HR ANAHI Administration Buspirone HCl 30 mg 10/02/25 09:00 10/07/25 10:18 Buspirone Hcl 10 Mg Tablet PO 30 mg BID ANAHI Administration Dexamethasone 6 mg 10/02/25 08:00 10/07/25 10:17 Dexamethasone 2 Mg Tablet PO 10/11/25 08:01 6 mg DAILY@0800 ANAHI Administration Dextrose 12.5 gm 10/01/25 16:13 Dextrose 50% 25 Gm/50 Ml Syringe IV PUSH PRN PRN Hypoglycemia Protocol Docosanol 1 applic 10/01/25 21:00 10/07/25 12:32 Docosanol 10% Cream 2 Gm TOPICAL Not Given 5 TIMES DAILY ANAHI Docusate Sodium 100 mg 10/01/25 17:00 10/07/25 10:16 Docusate Sodium 100 Mg Capsule PO 100 mg BID ANAHI Administration Duloxetine HCl 60 mg 10/02/25 09:00 10/07/25 10:17 Duloxetine Hcl 60 Mg Capsule.Dr PO 60 mg DAILY ANAHI Administration Ferrous Sulfate 325 mg 10/02/25 09:00 10/06/25 09:01 Ferrous Sulfate 325 Mg Tablet PO 325 mg Q48H ANAHI Administration Furosemide 20 mg 10/03/25 09:00 10/07/25 10:17 Furosemide 20 Mg Tablet PO 20 mg DAILY ANAHI Administration Glucagon 1 mg 10/01/25 16:13 Glucagon For Inj 1 Mg Vial IM PRN PRN Hypoglycemia Protocol Glucose 15 gm 10/01/25 16:13 Glucose Oral Gel 15 Gm Of Glucse In 37.5 Gm Tube PO PRN PRN Hypoglycemia Protocol Guaifenesin 1,200 mg 10/01/25 21:00 10/07/25 10:16 Guaifenesin 12 Hr 600 Mg Tabcr PO 1,200 mg Q12HR ANAHI Administration Hydroxyzine HCl 10 mg 10/01/25 19:50 10/07/25 10:17 Hydroxyzine Hcl 10 Mg Tablet PO 10 mg TID PRN Administration Anxiety Dextrose 1,000 mls @ 100 mls/hr 10/01/25 16:13 Dextrose 5% 1,000 Ml IVPB PRN PRN Hypoglycemia Protocol Ceftriaxone Sodium 1 gm/ 50 mls @ 100 mls/hr 10/06/25 05:00 10/07/25 05:48 Sodium Chloride IVPB 100 mls/hr Q24H ANAHI Administration Insulin Aspart 2 - 5 units 10/01/25 17:00 10/07/25 12:23 Insulin Aspart (*Bkc) 100 Units/Ml SUB-Q Not Given TIDWM [facility] Protocol Leflunomide 20 mg 10/02/25 09:00 10/07/25 10:17 Leflunomide 20 Mg Tablet PO 20 mg DAILY ANAHI Administration Lidocaine 1 patch 10/01/25 21:30 Lidocaine 5% Patch TRANSDERM DAILY PRN pain Loratadine 10 mg 10/01/25 21:00 10/06/25 20:49 Loratadine 10 Mg Tablet PO 10 mg HS ANAHI Administration Home Med ( 2.5 mg 10/01/25 22:00 10/07/25 05:49 Riociguat [Adempas] PO 10/31/25 21:59 2.5 mg 2.5 Mg Tablet) Q8HR ANAHI Administration Ondansetron HCl 4 mg 10/01/25 15:50 Ondansetron Inj 4 Mg/2 Ml Vial IV PUSH Q4H PRN Nausea Oxycodone HCl 5 mg 10/01/25 16:11 Oxycodone Hcl (*Crx) 5 Mg Tab Ir PO Q4H PRN Pain Rated 7-10 Pantoprazole Sodium 40 mg 10/01/25 21:30 10/07/25 10:17 Pantoprazole 40 Mg Tablet PO 40 mg Q12HR ANAHI Administration Polyethylene Glycol 17 gm 10/03/25 23:13 10/06/25 10:04 Polyethylene Glycol 3350 17 Gm Powd.Pack PO 17 gm QAM PRN Administration Constipation Pravastatin Sodium 40 mg 10/01/25 21:00 10/06/25 20:48 Pravastatin Sodium 20 Mg Tablet PO 40 mg HS ANAHI Administration Senna 8.6 mg 10/01/25 19:50 10/06/25 10:03 Sennosides 8.6 Mg Tablet PO 8.6 mg BID PRN Administration Constipation Sodium Chloride 1 spray 10/03/25 12:00 10/07/25 12:31 Saline 0.65% Julio Soln 44 Ml Btl NASAL 1 spray Q6HR ANAHI Administration Sodium Chloride 1 applic 10/03/25 23:12 10/06/25 21:10 Sodium Chloride Nasal Gel 14.1 Gm NASAL 1 applic QID PRN Administration Nasal Congestion Trazodone HCl 100 mg 10/01/25 21:00 10/06/25 20:49 Trazodone Hcl 50 Mg Tablet PO 100 mg HS ANAHI Administration Valacyclovir HCl 500 mg 10/01/25 21:00 10/06/25 20:49 Valacyclovir Hcl 500 Mg Tablet PO 500 mg HS ANAHI Administration Radiology Results: ITS Impressions Chest X-Ray 10/01/25 14:06 Impression: No acute cardiopulmonary abnormality. Chest CTA 10/01/25 15:20 IMPRESSION: 1. Pulmonary embolism subsegmental pulmonary artery right lower lobe, small thrombus burden. 2: Patchy faint groundglass opacities. Differential diagnosis includes pneumonia, early mild edema, hypersensitivity pneumonitis and nonspecific interstitial pneumonia. Venous Doppler Study 10/03/25 11:57 IMPRESSION: 1. No DVT either leg. Retroperitoneum Ultrasound 10/04/25 10:21 IMPRESSION: 1. 1.3 similar right renal cyst. Otherwise normal kidneys without hydronephrosis. Labs Labs: Laboratory Results - last 24 hr 10/06/25 10/06/25 10/07/25 15:09 16:44 04:41 WBC 8.9 RBC 3.06 L Hgb 10.0 L 9.2 L Hct 30.8 L 28.5 L MCV 93.1 MCH 30.1 MCHC 32.3 RDW 16.3 H Plt Count 217 MPV 10.2 Sodium 136 L Potassium 4.0 Chloride 110 H Carbon Dioxide 24 Anion Gap 2 L BUN 45 H D Creatinine 1.23 H Estim Creat Clear Calc 29 Estimated GFR 42 L Glucose 158 H POC Capillary Glucose 322 H Calcium 8.5 10/07/25 10/07/25 08:02 11:45 WBC RBC Hgb Hct MCV MCH MCHC RDW Plt Count MPV Sodium Potassium Chloride Carbon Dioxide Anion Gap BUN Creatinine Estim Creat Clear Calc Estimated GFR Glucose POC Capillary Glucose 147 H 159 H Calcium Quality VTE Prophylaxis VTE prophylaxis: pharmacologic ordered
[2025-10-07 14:30] VITALS: BP 145/78; PULSE 100; RESP 12; TEMP 36.6; O2SAT 94
[2025-10-07] MEDS: INSULIN ASPART (*BKC) 100 UNITS/ML SUB-Q (17:10)
[2025-10-07 20:00] VITALS: O2SAT 92
[2025-10-07 20:41] VITALS: BP 139/74; PULSE 98; RESP 20; TEMP 36.4; O2SAT 96
[2025-10-07] MEDS: LORATADINE 10 MG TABLET PO (22:26)
[2025-10-07] MEDS: PRAVASTATIN SODIUM 20 MG TABLET 40 MG PO (22:26)
[2025-10-07] MEDS: CEPHALEXIN 500 MG CAPSULE PO (22:26)
[2025-10-08] VITALS (7 sets, daily range): BP systolic 129–135; BP diastolic 64–71; PULSE 94–97; RESP 20; TEMP 36.4–36.7; O2SAT 91–96
[2025-10-08 06:30] LABS: Hematocrit 29.8 % (37.0-47.0); Hemoglobin 9.7 g/dL (12.0-15.0); Mean Corpuscular HGB Conc 32.6 g/dl (32-36); Mean Corpuscular Hemoglobin 30.9 pg (26-34); Mean Corpuscular Volume 94.9 fl (80-100); Platelet Count Result 237 k/mm3 (150-375); Red Blood Count 3.14 M/mm3 (4.2-5.4); White Blood Count 10.4 K/mm3 (4.5-10.0)
[2025-10-08 07:00] LABS: Anion Gap 2 mmol/L (4-12); Blood Urea Nitrogen 40 mg/dL (7-17); Calcium 8.4 mg/dL (8.4-10.2); Carbon Dioxide 22 mmol/L (22-30); Chloride 111 mmol/L (98-107); Estimated CRCL calculation 30 ml/min; Estimated Glomerular Filt Rate 44; Glucose 157 mg/dL (65-110); Potassium 3.5 mmol/L (3.4-5.0); Sodium 135 mmol/L (137-145)
[2025-10-08] MEDS: POTASSIUM CHLORIDE 20 MEQ PACKET (FOR LIQUID) 40 MEQ PO (09:02)
[2025-10-08] MEDS: DOCUSATE SODIUM 100 MG CAPSULE PO ×2 (09:03→16:57)
[2025-10-08] MEDS: LEFLUNOMIDE 20 MG TABLET PO (09:03)
[2025-10-08] MEDS: DULoxetine HCL 60 MG CAPSULE.DR PO (09:04)
[2025-10-08] MEDS: guaiFENesin 12 HR 600 MG TABCR 1200 MG PO ×2 (09:04→20:23)
[2025-10-08] MEDS: FUROSEMIDE 20 MG TABLET PO (09:04)
[2025-10-08] MEDS: PANTOPRAZOLE 40 MG TABLET PO ×2 (09:04→20:23)
[2025-10-08] MEDS: APIXABAN 5 MG TABLET PO ×2 (09:04→20:23)
[2025-10-08] MEDS: FERROUS SULFATE 325 MG TABLET PO (09:04)
[2025-10-08] MEDS: CEPHALEXIN 500 MG CAPSULE PO ×2 (09:04→20:24)
[2025-10-08] MEDS: SALINE 0.65% NAS SOLN 44 ML BTL 1 SPRAY NASAL (09:08)
--- NOTE | 2025-10-08 10:35 | PCNWS ---
Weekly nutritional screen. Patient is tolerating current diet with adequate intake. No weight loss reported. No nutritional needs at this time.
--- NOTE | 2025-10-08 10:57 | PM.PNPUL ---
Progress Note: A&P Assessment and Plan (1) Pneumonia due to COVID-19 virus: Code(s): U07.1 - COVID-19; J12.89 - Other viral pneumonia Status: Acute Assessment and Plan: 10/01/25 PCR is positive for SARS-CoV-2, she had symptoms for a week before coming in, initially symptoms started around Thanksgiving with increasing cough, sputum with mild hemoptysis, shortness of breath, small increase in troponin. She is on remdesivir and dexamethasone, oxygen, does not want to take bronchodilator because she says is does not feel good in her mouth with scattered sores, probable aphthous ulcers consistent with her viral infection. She does not have wheezing, does not appear to need bronchodilator therapy. 10/07/2025: Patient finished remdesivir on 10/05/2025. Continues on dexamethasone 6 mg q.day. plan: Patient continues to slowly improve. She is weak and debilitated. Currently on no bronchodilators with no wheezing. 10/08/2025: Overall the patient tells me she has a little bit of shortness of breath. She got out of the bed to a chair. She has a persistent cough with phlegm and some hemoptysis. I spoke with the nurse who took care of her yesterday and today and they have witnessed no hemoptysis. White blood cell count is 10.4, creatinine 1.17. Patient is -570 mL yesterday, cumulative she is positive 4.4 L. Her weight today is 70 kg. Patient had an overnight oximetry on 2 L nasal cannula with recording duration of 6 hours and 13 minutes. Average saturation 88%. Low saturation 77%. Time with saturation less than or equal to 88% was 192 minutes. Oxygen desaturation index 34. Plan: Dexamethasone 6 mg p.o. q.day, day 7 of 10. Patient remains weak and debilitated. Encouraged activity. Goal saturation 90-94%. I have decreased her to room air today. (2) Chronic hypoxic respiratory failure, on home oxygen therapy: Code(s): J96.11 - Chronic respiratory failure with hypoxia; Z99.81 - Dependence on supplemental oxygen Status: Acute Assessment and Plan: She has worn oxygen since diagnosed with lung COVID August 2020, she is currently on 3 L around the clock at home, on admission saturation was lower on her usual O2 and she is currently on higher flow between 5 and 7 L with adequate oxygenation, saturation 95%. She is now on 4 L, close to her 3 L.min baseline. 10/07/2025:Her oxygen levels are actually improved from her baseline 3 L 24/7 and currently she is on 2 L at rest. Plan: I will obtain an overnight oximetry on 2 L nasal cannula tonight. Goal saturation 90-94%, wean as tolerated. 10/08/25: When I entered the room she was on 2 L with 1 prong in her nostril with saturations 92%. I decreased her to room air and her saturations were 91%. Plan: Goal saturation 90-94%. I have decreased her to room air today. Patient will be discharged to [facility] and will do a home O2 assessment prior to discharge. I will do an overnight oximetry on 4 L tonight. (3) Pulmonary embolism of right lower lobe: Code(s): I26.99 - Other pulmonary embolism without acute cor pulmonale Status: Acute Assessment and Plan: This is a provoked PE by concurrent COVID infection. CTA on 10/01/25 shows small clot burden to the vessels of the right lower lobe. She has chronic right heart failure, echo is worse compared to February of 2024 coma she is on oral anticoagulants, Eliquis, initially was on heparin. She is having some mild epistaxis. She has scant blood in both nostrils. She uses O2 at home, has not had this problems before. She is on humidified O2. She is using Pound gel to nares and Afrin, epistaxis is mild. Dr Tariq note says that she has had Pe in the past. 10/07/2025: Patient continues on apixaban 5 mg p.o. q.12 hours. 10/08/25: patient states she is having continued hemoptysis although none has been documented by the nurse over the last 36 hours. Plan: Continue apixaban 5 mg p.o. q.12 hours. I have told the patient to cough and to a tissue and if there is any evidence of hemoptysis to call the nurse that this can be documented. (4) Pulmonary arterial hypertension: Code(s): I27.21 - Secondary pulmonary arterial hypertension Status: Acute Assessment and Plan: Echo this admission shows right ventricular systolic pressure 99, this is a chronic problem, in February 2024 RVSP was 79 mmHg, secondary and due to untreated HUSSAIN plus RA, and or long COVID (She has worn oxygen since diagnosed with lung COVID August 2020, she is currently on 3 L around the clock at home). She wears O2 at home 2 L /min all the time. does not want sleep issues addressed. She is not active at home, does not want testing related to O2, sleep. 10/08/25: Etiology includes: acute COVID, Acute pulmonary embolism, hypoxemic respiratory failure, possible sleep-related breathing disorder, fluid overload. Plan: Continue to finish treatment for acute COVID, on anticoagulation for acute PE, maintain saturation 90 94%. Patient does not wish for sleep-related breathing disorder diagnosis or treatment. Continue Lasix 20 p.o. q.day patient has lost 1.3 kg since hospitalization. She is 4.4 L cumulative positive. She has minimal edema, I will check a chest x-ray and a BNP today. Subjective Date/time seen: 10/08/25 10:57 Interval history: 10/04/25 21:47 Interval history: Oct 04, hospital follow up visit: 85-year-old woman with COVID pneumonia and new small subsegmental pulmonary artery embolus right lower lobe, obstructive sleep apnea who has not been using PAP therapy for the past several years due to poor tolerance. She continues is having small amount of blood from her nose and coughing with light streaks of blood and small amounts of sputum. O2 need is lower, 4 L.min, sat 93%. No fevers. Temp 96.7?, pulse 95 beats per minute respirations 20-24 per minute blood pressure 148/73 saturation 94% on 4 liters/minute. She appears tired. She is alert and oriented. Can speak in short sentences. Her CTA was October 01, BUN and creatinine continue to increase, BUN 78 (74) and creat 2.03 (2.11). Baseline values 53 / 1.88. Oct 03, 2025, new consult; Sayra Glass is an 85-year-old woman who lives at [facility], has been there a year after an episode of pancreatitis. 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 Her primary is Dr. Diaz, he is in charge of her O2 and all her medications. She does wear O2 3 L/min around the clock. She was admitted Oct 01 with shortness of breath, productive cough mostly white with scant blood, fatigue, chest soreness, maybe costochondritis, mouth sores, started after the when she was eating with 15 people. She is not aware of being with any sick contacts. She has COVID now, and had it initially Aug 2020, was seen in ER here. She had (-) Fever, (+) Nausea, does have a history of CHF, on Eliquis. She has a previous history of pulmonary embolism, on anticoagulation with initially warfarin, now on Eliquis. She is complaining of constipation, has irritable bowel, has not had a bowel movement since Tuesday. This is a little long for her to go without a BM. She s complaining of bleeding from both nostrils. She tells me she is not taking more nebulized bronchodilator because it hurts her mouth. She has a few white lesions in her mouth, appears to be after this ulcers. She does not have bronchospasm and never smoked, so stopping the bronchodilator therapy is not a problem. Her admission testing showed a (+) PCR of COVID, and her CTA showed subsegmental pulmonary emboli to the artery in the right lower lobe with a small thrombus burden and no right heart failure. She was started on remdesivir and dexamethasone, O2 at 5 L/min, echo shows severe pulmonary hypertension with an estimated pulmonary arterial pressure of 99, right ventricle is severely enlarged, right ventricular systolic function severely reduced. The left ventricle is hyperdynamic with EF greater than 70% and increased left ventricular wall thickness. She has not had leg swelling at home. She does not know if she snores, she sleeps poorly, goes to bed after 3 in the morning and wakens 4 hours later, says she does not nap during the day. Rarely has dreams. Denies waking at night to urinate. She really does not have any interested at all in revisited problems with sleep disordered breathing, really stops me from talking about it at all. She tells me that her son lost his 2 and a half years ago, really hard on the patient who did not want to go into [facility]. She does not like the food, the staff, the living arrangement. She does not involve her self with all the activities, stays in her room more often than not. 10/07/2025: Patient tells me her short of breath is better but she has continued shortness of breath at rest, she has continued dyspnea on exertion in bed. She also complains of hemoptysis. When I enter the room she was on 3 L nasal cannula saturation 95%. I decreased her to 2 L nasal cannula saturations were 93%. White blood cell count 8.9, creatinine is improving and now 1.23. Yesterday she was positive 1.8 L. Cumulative she is positive 5.1 L since admission. Her weight today is 69.7. 10/08/2025: Overall the patient tells me she has a little bit of shortness of breath. She got out of the bed to a chair. She has a persistent cough with phlegm and some hemoptysis. I spoke with the nurse who took care of her yesterday and today and they have witnessed no hemoptysis. When I entered the room she was on 2 L with 1 prong in her nostril with saturations 92%. I decreased her to room air and her saturations were 91%. White blood cell count is 10.4, creatinine 1.17. Patient is -570 mL yesterday, cumulative she is positive 4.4 L. Her weight today is 70 kg. Patient had an overnight oximetry on 2 L nasal cannula with recording duration of 6 hours and 13 minutes. Average saturation 88%. Low saturation 77%. Time with saturation less than or equal to 88% was 192 minutes. Oxygen desaturation index 34. DATA * 10/01/2025; positive SARS-CoV-2 PCR; negative influenza A and B, RSV. * 10/01/25 CXR ; No acute cardiopulmonary abnormality. * 10/01/25 CTA; IMPRESSION: 1. Pulmonary embolism subsegmental pulmonary artery right lower lobe, small thrombus burden. 2: Patchy faint groundglass opacities. Differential diagnosis includes pneumonia, early mild edema, hypersensitivity pneumonitis and nonspecific interstitial pneumonia. * 10/03/25; venous dopplers ; No DVT either leg. * wbc 6.2 k, 77% neutrophils, 7% bands * 10/01/25 echo; Complete two-dimensional, color flow and Doppler transthoracic echocardiogram is performed. 2. Left ventricular chamber dimension is normal. 3. D shaped interventricular septum during systole and diastole suggestive of pressure and volume overload of right ventricle. 4. There is severe concentric increased left ventricular wall thickness. 5. Left ventricular systolic function is hyperdynamic, estimated at >70. 6. The left ventricular diastolic function is grade I diastolic dysfunction. 7. E/e' 12 is mildly elevated. 8. Right ventricular chamber dimension is severely enlarged. 9. Right ventricular systolic function is severely reduced and with abnormal TAPSE 1.0 cm. 10. Left atrial chamber dimension is mildly enlarged. 11. Right atrial chamber dimension is moderately enlarged. 12. There is moderate aortic valve sclerosis. 13. There is mild aortic valve stenosis with a peak velocity of 253 cm/s,mean gradient of 14 mmHg, and aortic valve area of 1.5 cm2. 14. The mitral valve has a moderately calcified annulus. 15. There is severe tricuspid valve regurgitation. 16. Severe pulmonary hypertension, estimated pulmonary arterial systolic pressure is 99 mmHg. 17. There is trivial pericardial effusion. Review of Systems Review of Systems: Diabetes mellitus Longstanding insomnia, takes trazodone and clonazepam Long COVID from 2019, started using oxygen 3 L at the time. All systems reviewed & are unremarkable except as noted in HPI and below Constitutional: Constitutional: Reports no additional constitutional complaints Eyes: Eyes: Reports no additional eye complaints ENT: Reports system reviewed and no additional complaints, except as documented Cardiovascular: Cardiovascular: Reports no additional cardiovascular complaints Respiratory: Respiratory: Reports no additional respiratory complaints Gastrointestinal: Gastrointestinal: Reports no additional gastrointestinal complaints Musculoskeletal: Musculoskeletal: Reports no additional musculoskeletal complaints Neurologic: Reports system reviewed and no additional complaints, except as documented Psychiatric: Psychiatric: Reports no additional psychiatric complaints Endocrine: Endocrine: Reports no additional endocrine complaints Hematologic/Lymphatic: Hematologic/Lymphatic: Reports no additional hematologic/lymphatic complaints Allergic/Immunologic: Allergic/Immunologic: Reports no additional allergic/immunologic complaints Exam Const: General: cooperative, healthy appearing and comfortable Orientation/consciousness: oriented to person, oriented to place and oriented to time HENMT: Head: normal to inspection Ears: hearing grossly normal bilaterally Eyes: General: appearance normal, both eyes and all related structures Neck: Neck: normal visual inspection Chest: Chest palpation & inspection: normal inspection of the chest Resp: Effort & Inspection: normal respiratory effort and able to speak in complete sentences Auscultation: no crackles, no rales, no rhonchi, no wheezes and lung sounds not diminished Other: few crackles throughout. Cardio: Jugular venous distension: no JVD GI: Inspection: normal to inspection Skin: General skin exam: normal color Neuro: General: oriented to person, oriented to place and oriented to time Extrem: General: normal to inspection Other: Trace edema Psych: Appearance: grossly normal Objective Data Vital Signs Vital Signs: Vital Signs - 24 hr 10/07/25 14:30 10/07/25 20:00 10/07/25 20:41 Temperature 36.6 C 36.4 C Pulse Rate 100 98 Respiratory Rate 12 20 Blood Pressure 145/78 H 139/74 Pulse Oximetry 94 92 96 Oxygen Delivery Nasal Cannula Oxygen Flow Rate 2 10/08/25 05:47 Temperature 36.4 C Pulse Rate 94 Respiratory Rate 20 Blood Pressure 132/71 Pulse Oximetry 96 Oxygen Delivery Oxygen Flow Rate Intake/Output Intake/Output: Intake & Output 10/05/25 10/06/25 10/07/25 10/08/25 23:59 23:59 23:59 23:59 Intake Total 530 3690 1130 600 Output Total 1750 1825 1700 800 Balance -1220 1865 -570 -200 Meds/Results Medications: Active Medications Generic Name Dose Route Start Last Admin Trade Name Anthonyq PRN Reason Stop Dose Admin Acetaminophen 650 mg 10/01/25 15:50 10/04/25 21:45 Acetaminophen 325 Mg Tablet PO 650 mg Q4H PRN Administration Mild Pain (1-3) or Fever Albuterol/Ipratropium 3 ml 10/05/25 15:11 Ipratropium 0.5 Mg/Albuterol Sulfate 2.5 Mg (Base) Ampul.Neb 3 Ml INHALATION Q6HRT PRN Dyspnea Apixaban 5 mg 10/02/25 21:00 10/08/25 09:04 Apixaban 5 Mg Tablet PO 5 mg Q12HR ANAHI Administration Buspirone HCl 30 mg 10/02/25 09:00 10/08/25 09:04 Buspirone Hcl 10 Mg Tablet PO 30 mg BID ANAHI Administration Cephalexin HCl 500 mg 10/07/25 21:00 10/08/25 09:04 Cephalexin 500 Mg Capsule PO 10/12/25 21:01 500 mg Q12HR ANAHI Administration Dexamethasone 6 mg 10/02/25 08:00 10/08/25 09:04 Dexamethasone 2 Mg Tablet PO 10/11/25 08:01 6 mg DAILY@0800 ANAHI Administration Dextrose 12.5 gm 10/01/25 16:13 Dextrose 50% 25 Gm/50 Ml Syringe IV PUSH PRN PRN Hypoglycemia Protocol Docosanol 1 applic 10/01/25 21:00 10/08/25 09:09 Docosanol 10% Cream 2 Gm TOPICAL Not Given 5 TIMES DAILY [facility] Docusate Sodium 100 mg 10/01/25 17:00 10/08/25 09:03 Docusate Sodium 100 Mg Capsule PO 100 mg BID ANAHI Administration Duloxetine HCl 60 mg 10/02/25 09:00 10/08/25 09:04 Duloxetine Hcl 60 Mg Capsule.Dr PO 60 mg DAILY ANAHI Administration Ferrous Sulfate 325 mg 10/02/25 09:00 10/08/25 09:04 Ferrous Sulfate 325 Mg Tablet PO 325 mg Q48H ANAHI Administration Furosemide 20 mg 10/03/25 09:00 10/08/25 09:04 Furosemide 20 Mg Tablet PO 20 mg DAILY ANAHI Administration Glucagon 1 mg 10/01/25 16:13 Glucagon For Inj 1 Mg Vial IM PRN PRN Hypoglycemia Protocol Glucose 15 gm 10/01/25 16:13 Glucose Oral Gel 15 Gm Of Glucse In 37.5 Gm Tube PO PRN PRN Hypoglycemia Protocol Guaifenesin 1,200 mg 10/01/25 21:00 10/08/25 09:04 Guaifenesin 12 Hr 600 Mg Tabcr PO 1,200 mg Q12HR ANAHI Administration Hydroxyzine HCl 10 mg 10/01/25 19:50 10/08/25 09:04 Hydroxyzine Hcl 10 Mg Tablet PO 10 mg TID PRN Administration Anxiety Dextrose 1,000 mls @ 100 mls/hr 10/01/25 16:13 Dextrose 5% 1,000 Ml IVPB PRN PRN Hypoglycemia Protocol Insulin Aspart 2 - 5 units 10/01/25 17:00 10/08/25 09:08 Insulin Aspart (*Bkc) 100 Units/Ml SUB-Q Not Given TIDWM [facility] Protocol Leflunomide 20 mg 10/02/25 09:00 10/08/25 09:03 Leflunomide 20 Mg Tablet PO 20 mg DAILY ANAHI Administration Lidocaine 1 patch 10/01/25 21:30 Lidocaine 5% Patch TRANSDERM DAILY PRN pain Loratadine 10 mg 10/01/25 21:00 10/07/25 22:26 Loratadine 10 Mg Tablet PO 10 mg HS ANAHI Administration Home Med ( 2.5 mg 10/01/25 22:00 10/08/25 07:03 Riociguat [Adempas] PO 10/31/25 21:59 2.5 mg 2.5 Mg Tablet) Q8HR ANAHI Administration Ondansetron HCl 4 mg 10/01/25 15:50 Ondansetron Inj 4 Mg/2 Ml Vial IV PUSH Q4H PRN Nausea Oxycodone HCl 5 mg 10/01/25 16:11 Oxycodone Hcl (*Crx) 5 Mg Tab Ir PO Q4H PRN Pain Rated 7-10 Pantoprazole Sodium 40 mg 10/01/25 21:30 10/08/25 09:04 Pantoprazole 40 Mg Tablet PO 40 mg Q12HR ANAHI Administration Polyethylene Glycol 17 gm 10/03/25 23:13 10/06/25 10:04 Polyethylene Glycol 3350 17 Gm Powd.Pack PO 17 gm QAM PRN Administration Constipation Pravastatin Sodium 40 mg 10/01/25 21:00 10/07/25 22:26 Pravastatin Sodium 20 Mg Tablet PO 40 mg HS ANAHI Administration Senna 8.6 mg 10/01/25 19:50 10/06/25 10:03 Sennosides 8.6 Mg Tablet PO 8.6 mg BID PRN Administration Constipation Sodium Chloride 1 spray 10/03/25 12:00 10/08/25 09:08 Saline 0.65% Julio Soln 44 Ml Btl NASAL 1 spray Q6HR ANAHI Administration Sodium Chloride 1 applic 10/03/25 23:12 10/06/25 21:10 Sodium Chloride Nasal Gel 14.1 Gm NASAL 1 applic QID PRN Administration Nasal Congestion Trazodone HCl 100 mg 10/01/25 21:00 10/07/25 22:26 Trazodone Hcl 50 Mg Tablet PO 100 mg HS ANAHI Administration Valacyclovir HCl 500 mg 10/01/25 21:00 10/07/25 22:26 Valacyclovir Hcl 500 Mg Tablet PO 500 mg HS ANAHI Administration Radiology Results: ITS Impressions Chest X-Ray 10/01/25 14:06 Impression: No acute cardiopulmonary abnormality. Chest CTA 10/01/25 15:20 IMPRESSION: 1. Pulmonary embolism subsegmental pulmonary artery right lower lobe, small thrombus burden. 2: Patchy faint groundglass opacities. Differential diagnosis includes pneumonia, early mild edema, hypersensitivity pneumonitis and nonspecific interstitial pneumonia. Venous Doppler Study 10/03/25 11:57 IMPRESSION: 1. No DVT either leg. Retroperitoneum Ultrasound 10/04/25 10:21 IMPRESSION: 1. 1.3 similar right renal cyst. Otherwise normal kidneys without hydronephrosis. Labs Labs: Laboratory Results - last 24 hr 10/07/25 10/07/25 10/07/25 11:45 16:43 20:43 WBC RBC Hgb Hct MCV MCH MCHC RDW Plt Count MPV Sodium Potassium Chloride Carbon Dioxide Anion Gap BUN Creatinine Estim Creat Clear Calc Estimated GFR Glucose POC Capillary Glucose 159 H 338 H 291 H Calcium 10/08/25 10/08/25 06:20 08:06 WBC 10.4 H RBC 3.14 L Hgb 9.7 L Hct 29.8 L MCV 94.9 MCH 30.9 MCHC 32.6 RDW 16.4 H Plt Count 237 MPV 9.3 Sodium 135 L Potassium 3.5 Chloride 111 H Carbon Dioxide 22 Anion Gap 2 L BUN 40 H Creatinine 1.17 H Estim Creat Clear Calc 30 Estimated GFR 44 L Glucose 157 H POC Capillary Glucose 163 H Calcium 8.4
--- NOTE | 2025-10-08 11:33 | P.PNIM_ITS ---
Assessment and Plan Assessment and Plan (1) COVID-19: Code(s): U07.1 - COVID-19 Status: Acute (2) Pulmonary embolism of right lower lobe: Code(s): I26.99 - Other pulmonary embolism without acute cor pulmonale Status: Acute (3) Elevated troponin: Code(s): R79.89 - Other specified abnormal findings of blood chemistry Status: Acute (4) Diabetes: Code(s): E11.9 - Type 2 diabetes mellitus without complications Status: Chronic (5) Acute kidney injury superimposed on CKD: Code(s): N17.9 - Acute kidney failure, unspecified; N18.9 - Chronic kidney disease, unspecified Status: Acute (6) CHF (congestive heart failure): Code(s): I50.9 - Heart failure, unspecified Status: Acute (7) Hypertension: Code(s): I10 - Essential (primary) hypertension Status: Acute Plan 85-year-old with past medical history of pulmonary embolism, diabetes, pancreatitis, hypertension, and congestive heart failure, chronic respiratory failure on 3 L nasal cannula at home presented with worsening shortness of breath, feeling extremely weak.According to the son patient has a history of undissolve multiple PEs and 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 Tested positive for COVID.CT shows Pulmonary embolism subsegmental pulmonary artery right lower lobe, small thrombus burden and Patchy faint groundglass opacities. 1. Acute on chronic hypoxic respiratory failure: Improving Currently on 3 L, 3 L is her baseline Status post 5 days of remdesivir Continue with dexamethasone Pulmonary consult appreciated Appreciate oncology help Patient has been changed to Eliquis again due to small clot burden Echo reviewed Epistaxis has improved Continue with scheduled nasal saline Status post afrin, Humidified oxygen when needed Continue with DuoNebs DVT study in bilateral leg is negative Plan for overnight pulse oximetry 4 L 2. Eyal I on pre-existing CKD: Improving kidney function Monitor kidney function Avoid nephrotoxins Renal USG unremarkable Supplement potassium 3. Klebsiella UTI: Status post ceftriaxone, completed the course 4. Diabetes mellitus: Blood glucose checked t.i.d. a.c. next is Continue with sliding scale insulin Hyperglycemia in setting of steroids Will add 2 units of mealtime insulin t.i.d. with meals 5.Constipation: improved 6.Code status: Full 7.Disposition: Pending improvement/anticipate discharge within next 48-72 hours if continues to improve Time Spent With Patient Time with patient: 25 - 35 minutes Subjective Date/time seen: 10/08/25 11:33 Interval history: Complains of mucus with cough, ? Blood-tinged aspect patient not documented by nursing staff Currently on room air Review of Systems Review of Systems: All systems reviewed & are unremarkable except as noted in HPI and below Exam Narrative: HEENT: PERRL, sclerae nonicteric, pharyngeal mucosa pink and intact NECK: No JVD CHEST: Normal effort, slight coarseness at bases but without crackles or wheezes HEART: NL S1/S2, regular, no murmur ABDOMEN: BS+, soft, nontender, no mass, no bruits EXTREMITIES: No cyanosis, edema, or clubbing NEUROLOGIC: CN intact and symmetric to inspection MUSCULOSKELETAL: Tone and strength symmetric but diffusely for over 5 PSYCH: Alert. Oriented to person, place, and time Objective Data Vital Signs Vital Signs: Vital Signs - 24 hr 10/07/25 14:30 10/07/25 20:00 10/07/25 20:41 Temperature 97.8 F 97.6 F Pulse Rate 100 98 Respiratory Rate 12 20 Blood Pressure 145/78 H 139/74 Pulse Oximetry 94 92 96 Oxygen Delivery Nasal Cannula Oxygen Flow Rate 2 10/08/25 05:47 Temperature 97.6 F Pulse Rate 94 Respiratory Rate 20 Blood Pressure 132/71 Pulse Oximetry 96 Oxygen Delivery Oxygen Flow Rate Intake/Output Intake/Output: Intake & Output 10/05/25 10/06/25 10/07/25 10/08/25 23:59 23:59 23:59 23:59 Intake Total 530 3690 1130 600 Output Total 1750 1825 1700 800 Balance -1220 1865 -570 -200 Meds/Results Medications: Active Medications Generic Name Dose Route Start Last Admin Trade Name Freq PRN Reason Stop Dose Admin Acetaminophen 650 mg 10/01/25 15:50 10/04/25 21:45 Acetaminophen 325 Mg Tablet PO 650 mg Q4H PRN Administration Mild Pain (1-3) or Fever Albuterol/Ipratropium 3 ml 10/05/25 15:11 Ipratropium 0.5 Mg/Albuterol Sulfate 2.5 Mg (Base) Ampul.Neb 3 Ml INHALATION Q6HRT PRN Dyspnea Apixaban 5 mg 10/02/25 21:00 10/08/25 09:04 Apixaban 5 Mg Tablet PO 5 mg Q12HR ANAHI Administration Buspirone HCl 30 mg 10/02/25 09:00 10/08/25 09:04 Buspirone Hcl 10 Mg Tablet PO 30 mg BID ANAHI Administration Cephalexin HCl 500 mg 10/07/25 21:00 10/08/25 09:04 Cephalexin 500 Mg Capsule PO 10/12/25 21:01 500 mg Q12HR ANAHI Administration Dexamethasone 6 mg 10/02/25 08:00 10/08/25 09:04 Dexamethasone 2 Mg Tablet PO 10/11/25 08:01 6 mg DAILY@0800 ANAHI Administration Dextrose 12.5 gm 10/01/25 16:13 Dextrose 50% 25 Gm/50 Ml Syringe IV PUSH PRN PRN Hypoglycemia Protocol Docosanol 1 applic 10/01/25 21:00 10/08/25 09:09 Docosanol 10% Cream 2 Gm TOPICAL Not Given 5 TIMES DAILY ANAHI Docusate Sodium 100 mg 10/01/25 17:00 10/08/25 09:03 Docusate Sodium 100 Mg Capsule PO 100 mg BID ANAHI Administration Duloxetine HCl 60 mg 10/02/25 09:00 10/08/25 09:04 Duloxetine Hcl 60 Mg Capsule.Dr PO 60 mg DAILY ANAHI Administration Ferrous Sulfate 325 mg 10/02/25 09:00 10/08/25 09:04 Ferrous Sulfate 325 Mg Tablet PO 325 mg Q48H ANAHI Administration Furosemide 20 mg 10/03/25 09:00 10/08/25 09:04 Furosemide 20 Mg Tablet PO 20 mg DAILY ANAHI Administration Glucagon 1 mg 10/01/25 16:13 Glucagon For Inj 1 Mg Vial IM PRN PRN Hypoglycemia Protocol Glucose 15 gm 10/01/25 16:13 Glucose Oral Gel 15 Gm Of Glucse In 37.5 Gm Tube PO PRN PRN Hypoglycemia Protocol Guaifenesin 1,200 mg 10/01/25 21:00 10/08/25 09:04 Guaifenesin 12 Hr 600 Mg Tabcr PO 1,200 mg Q12HR ANAHI Administration Hydroxyzine HCl 10 mg 10/01/25 19:50 10/08/25 09:04 Hydroxyzine Hcl 10 Mg Tablet PO 10 mg TID PRN Administration Anxiety Dextrose 1,000 mls @ 100 mls/hr 10/01/25 16:13 Dextrose 5% 1,000 Ml IVPB PRN PRN Hypoglycemia Protocol Insulin Aspart 2 - 5 units 10/01/25 17:00 10/08/25 09:08 Insulin Aspart (*Bkc) 100 Units/Ml SUB-Q Not Given TIDWM [facility] Protocol Leflunomide 20 mg 10/02/25 09:00 10/08/25 09:03 Leflunomide 20 Mg Tablet PO 20 mg DAILY ANAHI Administration Lidocaine 1 patch 10/01/25 21:30 Lidocaine 5% Patch TRANSDERM DAILY PRN pain Loratadine 10 mg 10/01/25 21:00 10/07/25 22:26 Loratadine 10 Mg Tablet PO 10 mg HS ANAHI Administration Home Med ( 2.5 mg 10/01/25 22:00 10/08/25 07:03 Riociguat [Adempas] PO 10/31/25 21:59 2.5 mg 2.5 Mg Tablet) Q8HR ANAHI Administration Ondansetron HCl 4 mg 10/01/25 15:50 Ondansetron Inj 4 Mg/2 Ml Vial IV PUSH Q4H PRN Nausea Oxycodone HCl 5 mg 10/01/25 16:11 Oxycodone Hcl (*Crx) 5 Mg Tab Ir PO Q4H PRN Pain Rated 7-10 Pantoprazole Sodium 40 mg 10/01/25 21:30 10/08/25 09:04 Pantoprazole 40 Mg Tablet PO 40 mg Q12HR ANAHI Administration Polyethylene Glycol 17 gm 10/03/25 23:13 10/06/25 10:04 Polyethylene Glycol 3350 17 Gm Powd.Pack PO 17 gm QAM PRN Administration Constipation Pravastatin Sodium 40 mg 10/01/25 21:00 10/07/25 22:26 Pravastatin Sodium 20 Mg Tablet PO 40 mg HS ANAHI Administration Senna 8.6 mg 10/01/25 19:50 10/06/25 10:03 Sennosides 8.6 Mg Tablet PO 8.6 mg BID PRN Administration Constipation Sodium Chloride 1 spray 10/03/25 12:00 10/08/25 09:08 Saline 0.65% Julio Soln 44 Ml Btl NASAL 1 spray Q6HR ANAHI Administration Sodium Chloride 1 applic 10/03/25 23:12 10/06/25 21:10 Sodium Chloride Nasal Gel 14.1 Gm NASAL 1 applic QID PRN Administration Nasal Congestion Trazodone HCl 100 mg 10/01/25 21:00 10/07/25 22:26 Trazodone Hcl 50 Mg Tablet PO 100 mg HS ANAHI Administration Valacyclovir HCl 500 mg 10/01/25 21:00 10/07/25 22:26 Valacyclovir Hcl 500 Mg Tablet PO 500 mg HS ANAHI Administration Radiology Results: ITS Impressions Chest CTA 10/01/25 15:20 IMPRESSION: 1. Pulmonary embolism subsegmental pulmonary artery right lower lobe, small thrombus burden. 2: Patchy faint groundglass opacities. Differential diagnosis includes pneumonia, early mild edema, hypersensitivity pneumonitis and nonspecific interstitial pneumonia. Venous Doppler Study 10/03/25 11:57 IMPRESSION: 1. No DVT either leg. Retroperitoneum Ultrasound 10/04/25 10:21 IMPRESSION: 1. 1.3 similar right renal cyst. Otherwise normal kidneys without hydronephrosis. Chest X-Ray 10/08/25 11:23 Impression: Mild CHF Labs Labs: Laboratory Results - last 24 hr 10/07/25 10/07/25 10/07/25 11:45 16:43 20:43 WBC RBC Hgb Hct MCV MCH MCHC RDW Plt Count MPV Sodium Potassium Chloride Carbon Dioxide Anion Gap BUN Creatinine Estim Creat Clear Calc Estimated GFR Glucose POC Capillary Glucose 159 H 338 H 291 H Calcium 10/08/25 10/08/25 10/08/25 06:20 08:06 11:26 WBC 10.4 H RBC 3.14 L Hgb 9.7 L Hct 29.8 L MCV 94.9 MCH 30.9 MCHC 32.6 RDW 16.4 H Plt Count 237 MPV 9.3 Sodium 135 L Potassium 3.5 Chloride 111 H Carbon Dioxide 22 Anion Gap 2 L BUN 40 H Creatinine 1.17 H Estim Creat Clear Calc 30 Estimated GFR 44 L Glucose 157 H POC Capillary Glucose 163 H 279 H Calcium 8.4 Quality VTE Prophylaxis VTE prophylaxis: pharmacologic ordered
[2025-10-08 11:36] LABS: NT Pro B Type Natriuretic Pept 11900 pg/mL (19.9-100)
[2025-10-08] MEDS: INSULIN ASPART (*BKC) 100 UNITS/ML SUB-Q ×4 (11:41→17:00)
[2025-10-08] MEDS: LORATADINE 10 MG TABLET PO (20:23)
[2025-10-08] MEDS: PRAVASTATIN SODIUM 20 MG TABLET 40 MG PO (20:24)
[2025-10-08] MEDS: oxyCODONE HCL (*CRX) 5 MG TAB IR PO (21:56)
[2025-10-09] VITALS (10 sets, daily range): BP systolic 138–142; BP diastolic 74–76; PULSE 80–96; RESP 18–20; TEMP 35.9; O2SAT 86–99
[2025-10-09] MEDS: SODIUM CHLORIDE NASAL GEL 14.1 GM 1 APPLIC NASAL (05:02)
[2025-10-09] MEDS: SALINE 0.65% NAS SOLN 44 ML BTL 1 SPRAY NASAL ×3 (05:03→20:24)
[2025-10-09 06:12] LABS: Hematocrit 29.4 % (37.0-47.0); Hemoglobin 9.4 g/dL (12.0-15.0); Immature Granulocyte Percent A 2.4 % (0-0.5); Lymphocytes Absolute Auto 0.69 K/mm3 (0.9-3.2); Mean Corpuscular HGB Conc 32.0 g/dl (32-36); Mean Corpuscular Hemoglobin 30.4 pg (26-34); Mean Corpuscular Volume 95.1 fl (80-100); Nucleated Red Blood Cells Absolute Auto 0.050 K/mm3 (0.0-0.012); Nucleated Red Blood Cells Perc 0.5 % (0.0-0.2); Platelet Count Result 258 k/mm3 (150-375); Red Blood Count 3.09 M/mm3 (4.2-5.4); White Blood Count 10.7 K/mm3 (4.5-10.0)
[2025-10-09 06:35] LABS: Anion Gap 3 mmol/L (4-12); Blood Urea Nitrogen 44 mg/dL (7-17); Calcium 8.4 mg/dL (8.4-10.2); Carbon Dioxide 22 mmol/L (22-30); Chloride 108 mmol/L (98-107); Estimated CRCL calculation 27 ml/min; Estimated Glomerular Filt Rate 39; Glucose 205 mg/dL (65-110); Potassium 4.2 mmol/L (3.4-5.0); Sodium 133 mmol/L (137-145)
--- NOTE | 2025-10-09 07:24 | P.PNIM_ITS ---
Assessment and Plan Assessment and Plan (1) COVID-19: Code(s): U07.1 - COVID-19 Status: Acute Assessment and Plan: -Improving -Status post 5 days of remdesivir -Continue with dexamethasone Pulmonary consult appreciated -Epistaxis has improved -Continue with scheduled nasal saline -Status post afrin, -Humidified oxygen when needed -Continue with DuoNebs - per Apnea Link - needs 4L NC at night -pulmonology following - planning to continue Decadron x 10 days. Home O2 study to determine true daytime oxygen needs. (2) Acute respiratory failure with hypoxia: Code(s): J96.01 - Acute respiratory failure with hypoxia Status: Acute Assessment and Plan: - required up to 7L HFNC - in setting of COVID and PE - currently on 2L. Was on 3L NC at home. Will require 4L NC at night. Home O2 study to determine daytime O2 needs. (3) Acute kidney injury superimposed on CKD: Code(s): N17.9 - Acute kidney failure, unspecified; N18.9 - Chronic kidney disease, unspecified Status: Acute Assessment and Plan: - Cr peaked at 2.11, baseline around 1.5 - renal US unremarkable - Cr improving -Monitor kidney function -Avoid nephrotoxins (4) Pulmonary embolism of right lower lobe: Code(s): I26.99 - Other pulmonary embolism without acute cor pulmonale Status: Acute Assessment and Plan: -Echo reviewed - EF >70%, G1DD, severe pulmonary hypertension, RV systolic function decreased - similar to prior -DVT study in bilateral leg is negative -oncology following - Patient has been changed to Eliquis again due to small clot burden (5) Elevated troponin: Code(s): R79.89 - Other specified abnormal findings of blood chemistry Status: Acute Assessment and Plan: - troponin I 0.420, 0.379 - likely due to PE, TARIQ - EKG no acute ischemic changes (6) Diabetes: Code(s): E11.9 - Type 2 diabetes mellitus without complications Status: Chronic Assessment and Plan: - last HgbA1c - 6.5 10/04 - hold home PO meds - BG elevated in setting of Decadron. - POCT glucose qACHS - hypoglycemia management protocol (7) CHF (congestive heart failure): Code(s): I50.9 - Heart failure, unspecified Status: Acute Assessment and Plan: - in setting of pulmonary hypertension - Echo reviewed - EF >70%, G1DD, severe pulmonary hypertension, RV systolic function decreased - similar to prior - continue PO Lasix, Adempas (8) Hypertension: Code(s): I10 - Essential (primary) hypertension Status: Acute Assessment and Plan: - BP stable - continue home meds (9) Urinary tract infection: Code(s): N39.0 - Urinary tract infection, site not specified Status: Acute Assessment and Plan: -Status post ceftriaxone, completed the course Plan Code status: full code DVT prophylaxis: Eliquis Dispo: SNF, awaiting placement Subjective Date/time seen: 10/09/25 07:24 Interval history: Patient seen and examined at bedside. Review of Systems Review of Systems: All systems reviewed & are unremarkable except as noted in HPI and below Exam Narrative: General: NAD, chronically ill-appearing Eyes: EOMI ENT: neck supple Cardiovascular: Regular rate and rhythm Respiratory: Clear to auscultation, respirations even and unlabored on RA Gastrointestinal: Soft, non tender Genitourinary: no suprapubic tenderness Musculoskeletal: No edema Skin: warm, dry Neuro: Alert. Psych: Mood appropriate Objective Data Vital Signs Vital Signs: Vital Signs - 24 hr 10/08/25 09:08 10/08/25 10:10 10/08/25 14:00 Temperature 98.1 F Pulse Rate 94 97 Respiratory Rate 20 20 Blood Pressure 129/66 Pulse Oximetry 91 92 93 Oxygen Delivery Nasal Cannula Nasal Cannula Oxygen Flow Rate 0.5 0.5 Fraction of Inspired Oxygen 35 10/08/25 20:00 10/08/25 20:20 10/08/25 22:25 Temperature 97.9 F Pulse Rate 96 96 Respiratory Rate 20 20 Blood Pressure 135/64 Pulse Oximetry 91 91 92 Oxygen Delivery Nasal Cannula Nasal Cannula Oxygen Flow Rate 2 2 Fraction of Inspired Oxygen 35 10/09/25 04:02 Temperature 96.6 F L Pulse Rate 89 Respiratory Rate 20 Blood Pressure 142/74 H Pulse Oximetry 99 Oxygen Delivery Oxygen Flow Rate Fraction of Inspired Oxygen Intake/Output Intake/Output: Intake & Output 10/06/25 10/07/25 10/08/25 10/09/25 23:59 23:59 23:59 23:59 Intake Total 3690 1130 1560 240 Output Total 1825 1700 1400 200 Balance 1865 -570 160 40 Meds/Results Medications: Active Medications Generic Name Dose Route Start Last Admin Trade Name Freq PRN Reason Stop Dose Admin Acetaminophen 650 mg 10/01/25 15:50 10/04/25 21:45 Acetaminophen 325 Mg Tablet PO 650 mg Q4H PRN Administration Mild Pain (1-3) or Fever Albuterol/Ipratropium 3 ml 10/05/25 15:11 Ipratropium 0.5 Mg/Albuterol Sulfate 2.5 Mg (Base) Ampul.Neb 3 Ml INHALATION Q6HRT PRN Dyspnea Apixaban 5 mg 10/02/25 21:00 10/08/25 20:23 Apixaban 5 Mg Tablet PO 5 mg Q12HR ANAHI Administration Buspirone HCl 30 mg 10/02/25 09:00 10/08/25 16:59 Buspirone Hcl 10 Mg Tablet PO 30 mg BID ANAHI Administration Cephalexin HCl 500 mg 10/07/25 21:00 10/08/25 20:24 Cephalexin 500 Mg Capsule PO 10/12/25 21:01 500 mg Q12HR ANAHI Administration Dexamethasone 6 mg 10/02/25 08:00 10/08/25 09:04 Dexamethasone 2 Mg Tablet PO 10/11/25 08:01 6 mg DAILY@0800 ANAHI Administration Dextrose 12.5 gm 10/01/25 16:13 Dextrose 50% 25 Gm/50 Ml Syringe IV PUSH PRN PRN Hypoglycemia Protocol Docosanol 1 applic 10/01/25 21:00 10/08/25 20:25 Docosanol 10% Cream 2 Gm TOPICAL 1 applic 5 TIMES DAILY ANAHI Administration Docusate Sodium 100 mg 10/01/25 17:00 10/08/25 16:57 Docusate Sodium 100 Mg Capsule PO 100 mg BID ANAHI Administration Duloxetine HCl 60 mg 10/02/25 09:00 10/08/25 09:04 Duloxetine Hcl 60 Mg Capsule.Dr PO 60 mg DAILY ANAHI Administration Ferrous Sulfate 325 mg 10/02/25 09:00 10/08/25 09:04 Ferrous Sulfate 325 Mg Tablet PO 325 mg Q48H ANAHI Administration Furosemide 20 mg 10/03/25 09:00 10/08/25 09:04 Furosemide 20 Mg Tablet PO 20 mg DAILY ANAHI Administration Glucagon 1 mg 10/01/25 16:13 Glucagon For Inj 1 Mg Vial IM PRN PRN Hypoglycemia Protocol Glucose 15 gm 10/01/25 16:13 Glucose Oral Gel 15 Gm Of Glucse In 37.5 Gm Tube PO PRN PRN Hypoglycemia Protocol Guaifenesin 1,200 mg 10/01/25 21:00 10/08/25 20:23 Guaifenesin 12 Hr 600 Mg Tabcr PO 1,200 mg Q12HR ANAHI Administration Hydroxyzine HCl 10 mg 10/01/25 19:50 10/08/25 20:24 Hydroxyzine Hcl 10 Mg Tablet PO 10 mg TID PRN Administration Anxiety Dextrose 1,000 mls @ 100 mls/hr 10/01/25 16:13 Dextrose 5% 1,000 Ml IVPB PRN PRN Hypoglycemia Protocol Insulin Aspart 2 - 5 units 10/01/25 17:00 10/08/25 16:57 Insulin Aspart (*Bkc) 100 Units/Ml SUB-Q 4 units TIDWM ANAHI Administration Protocol Insulin Aspart 2 units 10/08/25 12:00 10/08/25 17:00 Insulin Aspart (*Bkc) 100 Units/Ml SUB-Q 2 units TIDWM ANAHI Administration Leflunomide 20 mg 10/02/25 09:00 10/08/25 09:03 Leflunomide 20 Mg Tablet PO 20 mg DAILY ANAHI Administration Lidocaine 1 patch 10/01/25 21:30 Lidocaine 5% Patch TRANSDERM DAILY PRN pain Loratadine 10 mg 10/01/25 21:00 10/08/25 20:23 Loratadine 10 Mg Tablet PO 10 mg HS ANAHI Administration Home Med ( 2.5 mg 10/01/25 22:00 10/09/25 05:03 Riociguat [Adempas] PO 10/31/25 21:59 2.5 mg 2.5 Mg Tablet) Q8HR ANAHI Administration Ondansetron HCl 4 mg 10/01/25 15:50 Ondansetron Inj 4 Mg/2 Ml Vial IV PUSH Q4H PRN Nausea Oxycodone HCl 5 mg 10/01/25 16:11 10/08/25 21:56 Oxycodone Hcl (*Crx) 5 Mg Tab Ir PO 5 mg Q4H PRN Administration Pain Rated 7-10 Pantoprazole Sodium 40 mg 10/01/25 21:30 10/08/25 20:23 Pantoprazole 40 Mg Tablet PO 40 mg Q12HR ANAHI Administration Polyethylene Glycol 17 gm 10/03/25 23:13 10/06/25 10:04 Polyethylene Glycol 3350 17 Gm Powd.Pack PO 17 gm QAM PRN Administration Constipation Pravastatin Sodium 40 mg 10/01/25 21:00 10/08/25 20:24 Pravastatin Sodium 20 Mg Tablet PO 40 mg HS ANAHI Administration Senna 8.6 mg 10/01/25 19:50 10/06/25 10:03 Sennosides 8.6 Mg Tablet PO 8.6 mg BID PRN Administration Constipation Sodium Chloride 1 spray 10/03/25 12:00 10/09/25 05:03 Saline 0.65% Julio Soln 44 Ml Btl NASAL 1 spray Q6HR ANAHI Administration Sodium Chloride 1 applic 10/03/25 23:12 10/09/25 05:02 Sodium Chloride Nasal Gel 14.1 Gm NASAL 1 applic QID PRN Administration Nasal Congestion Trazodone HCl 100 mg 10/01/25 21:00 10/08/25 20:24 Trazodone Hcl 50 Mg Tablet PO 100 mg HS ANAHI Administration Valacyclovir HCl 500 mg 10/01/25 21:00 10/08/25 20:24 Valacyclovir Hcl 500 Mg Tablet PO 500 mg HS ANAHI Administration Radiology Results: ITS Impressions Chest CTA 10/01/25 15:20 IMPRESSION: 1. Pulmonary embolism subsegmental pulmonary artery right lower lobe, small thrombus burden. 2: Patchy faint groundglass opacities. Differential diagnosis includes pneumonia, early mild edema, hypersensitivity pneumonitis and nonspecific interstitial pneumonia. Venous Doppler Study 10/03/25 11:57 IMPRESSION: 1. No DVT either leg. Retroperitoneum Ultrasound 10/04/25 10:21 IMPRESSION: 1. 1.3 similar right renal cyst. Otherwise normal kidneys without hydronephrosis. Chest X-Ray 10/08/25 11:23 Impression: Mild CHF Labs Labs: Laboratory Results - last 24 hr 10/08/25 10/08/25 10/08/25 06:20 08:06 11:26 WBC RBC Hgb Hct MCV MCH MCHC RDW Plt Count MPV Immature Gran % (Auto) Neut % (Auto) Lymph % (Auto) Jay % (Auto) Eos % (Auto) Baso % (Auto) Lymph # (Auto) Jay # (Auto) Eos # (Auto) Baso # (Auto) Abs Immat Gran (auto) Absolute Neuts (auto) Absolute Nucleated RBC Nucleated RBC % Sodium Potassium Chloride Carbon Dioxide Anion Gap BUN Creatinine Estim Creat Clear Calc Estimated GFR Glucose POC Capillary Glucose 163 H 279 H Calcium NT-Pro-B Natriuret Pep 37448 H 10/08/25 10/08/25 10/09/25 16:49 20:37 00:58 WBC RBC Hgb Hct MCV MCH MCHC RDW Plt Count MPV Immature Gran % (Auto) Neut % (Auto) Lymph % (Auto) Jay % (Auto) Eos % (Auto) Baso % (Auto) Lymph # (Auto) Jay # (Auto) Eos # (Auto) Baso # (Auto) Abs Immat Gran (auto) Absolute Neuts (auto) Absolute Nucleated RBC Nucleated RBC % Sodium Potassium Chloride Carbon Dioxide Anion Gap BUN Creatinine Estim Creat Clear Calc Estimated GFR Glucose POC Capillary Glucose 349 H 328 H 278 H Calcium NT-Pro-B Natriuret Pep 10/09/25 05:38 WBC 10.7 H RBC 3.09 L Hgb 9.4 L Hct 29.4 L MCV 95.1 MCH 30.4 MCHC 32.0 RDW 16.4 H Plt Count 258 MPV 9.8 Immature Gran % (Auto) 2.4 H Neut % (Auto) 81.6 H Lymph % (Auto) 6.4 L Jay % (Auto) 8.5 Eos % (Auto) 0.6 Baso % (Auto) 0.5 Lymph # (Auto) 0.69 L Jay # (Auto) 0.9 H Eos # (Auto) 0.1 Baso # (Auto) 0.1 Abs Immat Gran (auto) 0.26 H Absolute Neuts (auto) 8.8 H Absolute Nucleated RBC 0.050 H Nucleated RBC % 0.5 H Sodium 133 L Potassium 4.2 Chloride 108 H Carbon Dioxide 22 Anion Gap 3 L BUN 44 H Creatinine 1.31 H Estim Creat Clear Calc 27 Estimated GFR 39 L Glucose 205 H POC Capillary Glucose Calcium 8.4 NT-Pro-B Natriuret Pep Quality VTE Prophylaxis VTE prophylaxis: pharmacologic ordered
--- NOTE | 2025-10-09 09:46 | P.PNPL_ITS ---
Progress Note: A&P Assessment and Plan (1) Pneumonia due to COVID-19 virus: Code(s): U07.1 - COVID-19; J12.89 - Other viral pneumonia Status: Acute Assessment and Plan: 10/01/25 PCR is positive for SARS-CoV-2, she had symptoms for a week before coming in, initially symptoms started around Thanksgiving with increasing cough, sputum with mild hemoptysis, shortness of breath, small increase in troponin. She is on remdesivir and dexamethasone, oxygen, does not want to take bronchodilator because she says is does not feel good in her mouth with scattered sores, probable aphthous ulcers consistent with her viral infection. She does not have wheezing, does not appear to need bronchodilator therapy. 10/07/2025: Patient finished remdesivir on 10/05/2025. Continues on dexamethasone 6 mg q.day. plan: Patient continues to slowly improve. She is weak and debilitated. Currently on no bronchodilators with no wheezing. 10/08/2025: Overall the patient tells me she has a little bit of shortness of breath. She got out of the bed to a chair. She has a persistent cough with phlegm and some hemoptysis. I spoke with the nurse who took care of her yesterday and today and they have witnessed no hemoptysis. White blood cell count is 10.4, creatinine 1.17. Patient is -570 mL yesterday, cumulative she is positive 4.4 L. Her weight today is 70 kg. Patient had an overnight oximetry on 2 L nasal cannula with recording duration of 6 hours and 13 minutes. Average saturation 88%. Low saturation 77%. Time with saturation less than or equal to 88% was 192 minutes. Oxygen desaturation index 34. Plan: Dexamethasone 6 mg p.o. q.day, day 7 of 10. Patient remains weak and debilitated. Encouraged activity. Goal saturation 90-94%. I have decreased her to room air today. 10/09/25: Patient is slowly improving. She remains with some shortness of breath, she feels tired. She says she has had no hemoptysis since yesterday afternoon and when I asked her to expectorate she had no hemoptysis. When I enter the room she was on 1 L nasal cannula saturations 98%. I decreased her to room air and her saturations were 94%. She ambulated from the bed to the chair and her saturations on room air remained 92% or greater. White blood cell count 10.7, creatinine 1.31. Chest x-ray yesterday with some mild congestion but no focal infiltrates. Patient had an overnight oximetry on 4 L nasal cannula with recording duration of 6 hours and 20 minutes. Average saturation 96%. Low saturation 91%. Oxygen saturations less than 88% 0 minutes. Oxygen desaturation index 1.1. Her weight today is 69.4 cumulative she is positive 5.2 L since admission. Plan: Continue dexamethasone 6 mg p.o. q.day, day 8 of 10. Goal saturation 90-94%. Currently she is on room air. I will perform a home O2 assessment today. Patient will need 4 L nasal cannula at night. From a pulmonary perspective patient can be discharged to her assisted living in [place] on these pulmonary medicines: Dexamethasone 6 mg p.o. q.day x2 days Guaifenesin 1200 mg p.o. q.day p.r.n. congestion Claritin 10 mg p.o. q.day Apixaban 5 mg p.o. b.i.d. Diuretics per hospitalist team. No specific pulmonary clinic follow-up is required. Will sign off. Call with questions. Discussed with Romina Smith. (2) Chronic hypoxic respiratory failure, on home oxygen therapy: Code(s): J96.11 - Chronic respiratory failure with hypoxia; Z99.81 - Dependence on supplemental oxygen Status: Acute Assessment and Plan: She has worn oxygen since diagnosed with lung COVID August 2020, she is currently on 3 L around the clock at home, on admission saturation was lower on her usual O2 and she is currently on higher flow between 5 and 7 L with adequate oxygenation, saturation 95%. She is now on 4 L, close to her 3 L.min baseline. 10/07/2025:Her oxygen levels are actually improved from her baseline 3 L 23/05 and currently she is on 2 L at rest. Plan: I will obtain an overnight oximetry on 2 L nasal cannula tonight. Goal saturation 90-94%, wean as tolerated. 10/08/25: When I entered the room she was on 2 L with 1 prong in her nostril with saturations 92%. I decreased her to room air and her saturations were 91%. Plan: Goal saturation 90-94%. I have decreased her to room air today. Patient will be discharged to [facility] and will do a home O2 assessment prior to discharge. I will do an overnight oximetry on 4 L tonight. 10/09/25: When I enter the room she was on 1 L nasal cannula saturations 98%. I decreased her to room air and her saturations were 94%. She ambulated from the bed to the chair and her saturations on room air remained 92% or greater. Patient had an overnight oximetry on 4 L nasal cannula with recording duration of 6 hours and 20 minutes. Average saturation 96%. Low saturation 91%. Oxygen saturations less than 88% 0 minutes. Oxygen desaturation index 1.1. Her weight today is 69.4 cumulative she is positive 5.2 L since admission. Plan: Overall her oxygen At rest and with activi ty is improved compared to her baseline which was 3 L nasal cannula 24-7. I will perform a home O2 assessment today. Patient should be discharged on 4 L nasal cannula at night. (3) Pulmonary embolism of right lower lobe: Code(s): I26.99 - Other pulmonary embolism without acute cor pulmonale Status: Acute Assessment and Plan: This is a provoked PE by concurrent COVID infection. CTA on 10/01/25 shows small clot burden to the vessels of the right lower lobe. She has chronic right heart failure, echo is worse compared to February of 2024 coma she is on oral anticoagulants, Eliquis, initially was on heparin. She is having some mild epistaxis. She has scant blood in both nostrils. She uses O2 at home, has not had this problems before. She is on humidified O2. She is using [place] gel to nares and Afrin, epistaxis is mild. Dr Tariq note says that she has had Pe in the past. 10/07/2025: Patient continues on apixaban 5 mg p.o. q.12 hours. 10/08/25: patient states she is having continued hemoptysis although none has been documented by the nurse over the last 36 hours. Plan: Continue apixaban 5 mg p.o. q.12 hours. I have told the patient to cough and to a tissue and if there is any evidence of hemoptysis to call the nurse that this can be documented. 10/09/25: Hemoptysis has improved. Plan: This is a provoked PE by concurrent COVID infection and I would anticoagulate the patient for a total of 3 months. (4) Pulmonary arterial hypertension: Code(s): I27.21 - Secondary pulmonary arterial hypertension Status: Acute Assessment and Plan: Echo this admission shows right ventricular systolic pressure 99, this is a chronic problem, in February 2024 RVSP was 79 mmHg, secondary and due to untreated HUSSAIN plus RA, and or long COVID (She has worn oxygen since diagnosed with lung COVID August 2020, she is currently on 3 L around the clock at home). She wears O2 at home 3 L /min all the time. Does not want sleep issues addressed. She is not active at home, does not want testing related to O2, sleep. 10/08/25: Etiology includes: acute COVID, Acute pulmonary embolism, hypoxemic respiratory failure, possible sleep-related breathing disorder, fluid overload. Plan: Continue to finish treatment for acute COVID, on anticoagulation for acute PE, maintain saturation 90 94%. Patient does not wish for sleep-related breathing disorder diagnosis or treatment. Continue Lasix 20 p.o. q.day patient has lost 1.3 kg since hospitalization. She is 4.4 L cumulative positive. She has minimal edema, I will check a chest x-ray and a BNP today. 10/09/25: Patient with multiple comorbidities as an etiology for her pulmonary hypertension. Plan: Continue to finish treatment for her acute COVID, anticoagulation for acute PE as above, maintain adequate oxygen saturation as guided by home O2 assessment and patient will need 4 L at night. She does not wish for workup for sleep-related breathing disorder at this time. Currently the patient is on Lasix 20 mg p.o. q.day with an elevated BNP and congestion on her chest x-ray with a creatinine of 1.31 and a BUN of 44. Will defer diuresis to hospitalist team. Subjective Date/time seen: 10/09/25 09:46 Interval history: Oct 03, 2025, new consult; Sayra Glass is an 85-year-old woman who lives at [facility], has been there a year after an episode of pancreatitis. 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 Her primary is Dr. Diaz, he is in charge of her O2 and all her medications. She does wear O2 3 L/min around the clock. She was admitted Dec 2 with shortness of breath, productive cough mostly white with scant blood, fatigue, chest soreness, maybe costochondritis, mouth sores, started after the when she was eating with 15 people. She is not aware of being with any sick contacts. She has COVID now, and had it initially Aug 2020, was seen in ER here. She had (-) Fever, (+) Nausea, does have a history of CHF, on Eliquis. She has a previous history of pulmonary embolism, on anticoagulation with initially warfarin, now on Eliquis. She is complaining of constipation, has irritable bowel, has not had a bowel movement since Tuesday. This is a little long for her to go without a BM. She s complaining of bleeding from both nostrils. She tells me she is not taking more nebulized bronchodilator because it hurts her mouth. She has a few white lesions in her mouth, appears to be after this ulcers. She does not have bronchospasm and never smoked, so stopping the bronchodilator therapy is not a problem. Her admission testing showed a (+) PCR of COVID, and her CTA showed subsegmental pulmonary emboli to the artery in the right lower lobe with a small thrombus burden and no right heart failure. She was started on remdesivir and dexamethasone, O2 at 5 L/min, echo shows severe pulmonary hypertension with an estimated pulmonary arterial pressure of 99, right ventricle is severely enlarged, right ventricular systolic function severely reduced. The left ventricle is hyperdynamic with EF greater than 70% and increased left ventricular wall thickness. She has not had leg swelling at home. She does not know if she snores, she sleeps poorly, goes to bed after 3 in the morning and wakens 4 hours later, says she does not nap during the day. Rarely has dreams. Denies waking at night to urinate. She really does not have any interested at all in revisited problems with sleep disordered breathing, really stops me from talking about it at all. She tells me that her son lost his 2 and a half years ago, really hard on the patient who did not want to go into [facility]. She does not like the food, the staff, the living arrangement. She does not involve her self with all the activities, stays in her room more often than not. 10/04/25 21:47 Interval history: Oct 04, hospital follow up visit: 85-year-old woman with COVID pneumonia and new small subsegmental pulmonary artery embolus right lower lobe, obstructive sleep apnea who has not been using PAP therapy for the past several years due to poor tolerance. She continues is having small amount of blood from her nose and coughing with light streaks of blood and small amounts of sputum. O2 need is lower, 4 L.min, sat 93%. No fevers. Temp 96.7?, pulse 95 beats per minute respirations 20-24 per minute blood pressure 148/73 saturation 94% on 4 liters/minute. She appears tired. She is alert and oriented. Can speak in short sentences. Her CTA was October 01, BUN and creatinine continue to increase, BUN 78 (74) and creat 2.03 (2.11). Baseline values 53 / 1.88. 10/07/2025: Patient tells me her short of breath is better but she has continued shortness of breath at rest, she has continued dyspnea on exertion in bed. She also complains of hemoptysis. When I enter the room she was on 3 L nasal cannula saturation 95%. I decreased her to 2 L nasal cannula saturations were 93%. White blood cell count 8.9, creatinine is improving and now 1.23. Yesterday she was positive 1.8 L. Cumulative she is positive 5.1 L since admission. Her weight today is 69.7. 10/08/2025: Overall the patient tells me she has a little bit of shortness of breath. She got out of the bed to a chair. She has a persistent cough with phlegm and some hemoptysis. I spoke with the nurse who took care of her yesterday and today and they have witnessed no hemoptysis. When I entered the room she was on 2 L with 1 prong in her nostril with saturations 92%. I decreased her to room air and her saturations were 91%. White blood cell count is 10.4, creatinine 1.17. Patient is -570 mL yesterday, cumulative she is positive 4.4 L. Her weight today is 70 kg. Patient had an overnight oximetry on 2 L nasal cannula with recording duration of 6 hours and 13 minutes. Average saturation 88%. Low saturation 77%. Time with saturation less than or equal to 88% was 192 minutes. Oxygen desaturation index 34. 10/09/25: Patient is slowly improving. She remains with some shortness of breath, she feels tired. She says she has had no hemoptysis since yesterday afternoon and when I asked her to expectorate she had no hemoptysis. When I enter the room she was on 1 L nasal cannula saturations 98%. I decreased her to room air and her saturations were 94%. She ambulated from the bed to the chair and her saturations on room air remained 92% or greater. White blood cell count 10.7, creatinine 1.31. Chest x-ray yesterday with some mild congestion but no focal infiltrates. Patient had an overnight oximetry on 4 L nasal cannula with recording duration of 6 hours and 20 minutes. Average saturation 96%. Low saturation 91%. Oxygen saturations less than 88% 0 minutes. Oxygen desaturation index 1.1. Her weight today is 69.4 cumulative she is positive 5.2 L since admission. DATA * 10/01/2025; positive SARS-CoV-2 PCR; negative influenza A and B, RSV. * 10/01/25 CXR ; No acute cardiopulmonary abnormality. * 10/01/25 CTA; IMPRESSION: 1. Pulmonary embolism subsegmental pulmonary artery right lower lobe, small thrombus burden. 2: Patchy faint groundglass opacities. Differential diagnosis includes pneumonia, early mild edema, hypersensitivity pneumonitis and nonspecific interstitial pneumonia. * 10/03/25; venous dopplers ; No DVT either leg. * wbc 6.2 k, 77% neutrophils, 7% bands * 10/01/25 echo; Complete two-dimensional, color flow and Doppler transthoracic echocardiogram is performed. 2. Left ventricular chamber dimension is normal. 3. D shaped interventricular septum during systole and diastole suggestive of pressure and volume overload of right ventricle. 4. There is severe concentric increased left ventricular wall thickness. 5. Left ventricular systolic function is hyperdynamic, estimated at >70. 6. The left ventricular diastolic function is grade I diastolic dysfunction. 7. E/e' 12 is mildly elevated. 8. Right ventricular chamber dimension is severely enlarged. 9. Right ventricular systolic function is severely reduced and with abnormal TAPSE 1.0 cm. 10. Left atrial chamber dimension is mildly enlarged. 11. Right atrial chamber dimension is moderately enlarged. 12. There is moderate aortic valve sclerosis. 13. There is mild aortic valve stenosis with a peak velocity of 253 cm/s,mean gradient of 14 mmHg, and aortic valve area of 1.5 cm2. 14. The mitral valve has a moderately calcified annulus. 15. There is severe tricuspid valve regurgitation. 16. Severe pulmonary hypertension, estimated pulmonary arterial systolic pressure is 99 mmHg. 17. There is trivial pericardial effusion. Review of Systems Review of Systems: Diabetes mellitus Longstanding insomnia, takes trazodone and clonazepam Long COVID from 2019, started using oxygen 3 L at the time. All systems reviewed & are unremarkable except as noted in HPI and below Constitutional: Constitutional: Reports no additional constitutional complaints Eyes: Eyes: Reports no additional eye complaints ENT: Reports system reviewed and no additional complaints, except as documented Cardiovascular: Cardiovascular: Reports no additional cardiovascular complaints Respiratory: Respiratory: Reports no additional respiratory complaints Gastrointestinal: Gastrointestinal: Reports no additional gastrointestinal complaints Musculoskeletal: Musculoskeletal: Reports no additional musculoskeletal complaints Neurologic: Reports system reviewed and no additional complaints, except as d ocumented Psychiatric: Psychiatric: Reports no additional psychiatric complaints Endocrine: Endocrine: Reports no additional endocrine complaints Hematologic/Lymphatic: Hematologic/Lymphatic: Reports no additional hematologic/lymphatic complaints Allergic/Immunologic: Allergic/Immunologic: Reports no additional allergic/immunologic complaints Exam Const: General: cooperative, healthy appearing and comfortable Orientation/consciousness: oriented to person, oriented to place and oriented to time HENMT: Head: normal to inspection Ears: hearing grossly normal bilaterally Eyes: General: appearance normal, both eyes and all related structures Neck: Neck: normal visual inspection Chest: Chest palpation & inspection: normal inspection of the chest Resp: Effort & Inspection: normal respiratory effort and able to speak in complete sentences Auscultation: no crackles, no rales, no rhonchi, no wheezes and lung sounds not diminished Cardio: Jugular venous distension: no JVD GI: Inspection: normal to inspection Skin: General skin exam: normal color Neuro: General: oriented to person, oriented to place and oriented to time Extrem: General: normal to inspection Other: Trace edema Psych: Appearance: grossly normal Objective Data Vital Signs Vital Signs: Vital Signs - 24 hr 10/08/25 10:10 10/08/25 14:00 10/08/25 20:00 Temperature 36.7 C Pulse Rate 97 96 Respiratory Rate 20 20 Blood Pressure 129/66 Pulse Oximetry 92 93 91 Oxygen Delivery Nasal Cannula Nasal Cannula Oxygen Flow Rate 0.5 2 Fraction of Inspired Oxygen 35 10/08/25 20:20 10/08/25 22:25 10/09/25 04:02 Temperature 36.6 C 35.9 C L Pulse Rate 96 89 Respiratory Rate 20 20 Blood Pressure 135/64 142/74 H Pulse Oximetry 91 92 99 Oxygen Delivery Nasal Cannula Oxygen Flow Rate 2 Fraction of Inspired Oxygen Intake/Output Intake/Output: Intake & Output 10/06/25 10/07/25 10/08/25 10/09/25 23:59 23:59 23:59 23:59 Intake Total 3690 1130 1560 330 Output Total 1825 1700 1400 200 Balance 1865 -570 160 130 Meds/Results Medications: Active Medications Generic Name Dose Route Start Last Admin Trade Name Freq PRN Reason Stop Dose Admin Acetaminophen 650 mg 10/01/25 15:50 10/04/25 21:45 Acetaminophen 325 Mg Tablet PO 650 mg Q4H PRN Administration Mild Pain (1-3) or Fever Albuterol/Ipratropium 3 ml 10/05/25 15:11 Ipratropium 0.5 Mg/Albuterol Sulfate 2.5 Mg (Base) Ampul.Neb 3 Ml INHALATION Q6HRT PRN Dyspnea Apixaban 5 mg 10/02/25 21:00 10/08/25 20:23 Apixaban 5 Mg Tablet PO 5 mg Q12HR ANAHI Administration Buspirone HCl 30 mg 10/02/25 09:00 10/08/25 16:59 Buspirone Hcl 10 Mg Tablet PO 30 mg BID ANAHI Administration Cephalexin HCl 500 mg 10/07/25 21:00 10/08/25 20:24 Cephalexin 500 Mg Capsule PO 10/12/25 21:01 500 mg Q12HR ANAHI Administration Dexamethasone 6 mg 10/02/25 08:00 10/08/25 09:04 Dexamethasone 2 Mg Tablet PO 10/11/25 08:01 6 mg DAILY@0800 ANAHI Administration Dextrose 12.5 gm 10/01/25 16:13 Dextrose 50% 25 Gm/50 Ml Syringe IV PUSH PRN PRN Hypoglycemia Protocol Docosanol 1 applic 10/01/25 21:00 10/08/25 20:25 Docosanol 10% Cream 2 Gm TOPICAL 1 applic 5 TIMES DAILY ANAHI Administration Docusate Sodium 100 mg 10/01/25 17:00 10/08/25 16:57 Docusate Sodium 100 Mg Capsule PO 100 mg BID ANAHI Administration Duloxetine HCl 60 mg 10/02/25 09:00 10/08/25 09:04 Duloxetine Hcl 60 Mg Capsule.Dr PO 60 mg DAILY ANAHI Administration Ferrous Sulfate 325 mg 10/02/25 09:00 10/08/25 09:04 Ferrous Sulfate 325 Mg Tablet PO 325 mg Q48H ANAHI Administration Furosemide 20 mg 10/03/25 09:00 10/08/25 09:04 Furosemide 20 Mg Tablet PO 20 mg DAILY ANAHI Administration Glucagon 1 mg 10/01/25 16:13 Glucagon For Inj 1 Mg Vial IM PRN PRN Hypoglycemia Protocol Glucose 15 gm 10/01/25 16:13 Glucose Oral Gel 15 Gm Of Glucse In 37.5 Gm Tube PO PRN PRN Hypoglycemia Protocol Guaifenesin 1,200 mg 10/01/25 21:00 10/08/25 20:23 Guaifenesin 12 Hr 600 Mg Tabcr PO 1,200 mg Q12HR ANAHI Administration Hydroxyzine HCl 10 mg 10/01/25 19:50 10/08/25 20:24 Hydroxyzine Hcl 10 Mg Tablet PO 10 mg TID PRN Administration Anxiety Dextrose 1,000 mls @ 100 mls/hr 10/01/25 16:13 Dextrose 5% 1,000 Ml IVPB PRN PRN Hypoglycemia Protocol Insulin Aspart 2 - 5 units 10/01/25 17:00 10/08/25 16:57 Insulin Aspart (*Bkc) 100 Units/Ml SUB-Q 4 units TIDWM ANAHI Administration Protocol Insulin Aspart 2 units 10/08/25 12:00 10/08/25 17:00 Insulin Aspart (*Bkc) 100 Units/Ml SUB-Q 2 units TIDWM ANAHI Administration Leflunomide 20 mg 10/02/25 09:00 10/08/25 09:03 Leflunomide 20 Mg Tablet PO 20 mg DAILY ANAHI Administration Lidocaine 1 patch 10/01/25 21:30 Lidocaine 5% Patch TRANSDERM DAILY PRN pain Loratadine 10 mg 10/01/25 21:00 10/08/25 20:23 Loratadine 10 Mg Tablet PO 10 mg HS ANAHI Administration Home Med ( 2.5 mg 10/01/25 22:00 10/09/25 05:03 Riociguat [Adempas] PO 10/31/25 21:59 2.5 mg 2.5 Mg Tablet) Q8HR ANAHI Administration Ondansetron HCl 4 mg 10/01/25 15:50 Ondansetron Inj 4 Mg/2 Ml Vial IV PUSH Q4H PRN Nausea Oxycodone HCl 5 mg 10/01/25 16:11 10/08/25 21:56 Oxycodone Hcl (*Crx) 5 Mg Tab Ir PO 5 mg Q4H PRN Administration Pain Rated 7-10 Pantoprazole Sodium 40 mg 10/01/25 21:30 10/08/25 20:23 Pantoprazole 40 Mg Tablet PO 40 mg Q12HR ANAHI Administration Polyethylene Glycol 17 gm 10/03/25 23:13 10/06/25 10:04 Polyethylene Glycol 3350 17 Gm Powd.Pack PO 17 gm QAM PRN Administration Constipation Pravastatin Sodium 40 mg 10/01/25 21:00 10/08/25 20:24 Pravastatin Sodium 20 Mg Tablet PO 40 mg HS ANAHI Administration Senna 8.6 mg 10/01/25 19:50 10/06/25 10:03 Sennosides 8.6 Mg Tablet PO 8.6 mg BID PRN Administration Constipation Sodium Chloride 1 spray 10/03/25 12:00 10/09/25 05:03 Saline 0.65% Julio Soln 44 Ml Btl NASAL 1 spray Q6HR ANAHI Administration Sodium Chloride 1 applic 10/03/25 23:12 10/09/25 05:02 Sodium Chloride Nasal Gel 14.1 Gm NASAL 1 applic QID PRN Administration Nasal Congestion Trazodone HCl 100 mg 10/01/25 21:00 10/08/25 20:24 Trazodone Hcl 50 Mg Tablet PO 100 mg HS ANAHI Administration Valacyclovir HCl 500 mg 10/01/25 21:00 10/08/25 20:24 Valacyclovir Hcl 500 Mg Tablet PO 500 mg HS ANAHI Administration Radiology Results: ITS Impressions Chest CTA 10/01/25 15:20 IMPRESSION: 1. Pulmonary embolism subsegmental pulmonary artery right lower lobe, small thrombus burden. 2: Patchy faint groundglass opacities. Differential diagnosis includes pneumonia, early mild edema, hypersensitivity pneumonitis and nonspecific interstitial pneumonia. Venous Doppler Study 10/03/25 11:57 IMPRESSION: 1. No DVT either leg. Retroperitoneum Ultrasound 10/04/25 10:21 IMPRESSION: 1. 1.3 similar right renal cyst. Otherwise normal kidneys without hydronephrosis. Chest X-Ray 10/08/25 11:23 Impression: Mild CHF Labs Labs: Laboratory Results - last 24 hr 10/08/25 10/08/25 10/08/25 06:20 11:26 16:49 WBC RBC Hgb Hct MCV MCH MCHC RDW Plt Count MPV Immature Gran % (Auto) Neut % (Auto) Lymph % (Auto) [place] % (Auto) Eos % (Auto) Baso % (Auto) Lymph # (Auto) [place] # (Auto) Eos # (Auto) Baso # (Auto) Abs Immat Gran (auto) Absolute Neuts (auto) Absolute Nucleated RBC Nucleated RBC % Sodium Potassium Chloride Carbon Dioxide Anion Gap BUN Creatinine Estim Creat Clear Calc Estimated GFR Glucose POC Capillary Glucose 279 H 349 H Calcium NT-Pro-B Natriuret Pep 03043 H 10/08/25 10/09/25 10/09/25 20:37 00:58 05:38 WBC 10.7 H RBC 3.09 L Hgb 9.4 L Hct 29.4 L MCV 95.1 MCH 30.4 MCHC 32.0 RDW 16.4 H Plt Count 258 MPV 9.8 Immature Gran % (Auto) 2.4 H Neut % (Auto) 81.6 H Lymph % (Auto) 6.4 L [place] % (Auto) 8.5 Eos % (Auto) 0.6 Baso % (Auto) 0.5 Lymph # (Auto) 0.69 L [place] # (Auto) 0.9 H Eos # (Auto) 0.1 Baso # (Auto) 0.1 Abs Immat Gran (auto) 0.26 H Absolute Neuts (auto) 8.8 H Absolute Nucleated RBC 0.050 H Nucleated RBC % 0.5 H Sodium 133 L Potassium 4.2 Chloride 108 H Carbon Dioxide 22 Anion Gap 3 L BUN 44 H Creatinine 1.31 H Estim Creat Clear Calc 27 Estimated GFR 39 L Glucose 205 H POC Capillary Glucose 328 H 278 H Calcium 8.4 NT-Pro-B Natriuret Pep
[2025-10-09] MEDS: INSULIN ASPART (*BKC) 100 UNITS/ML SUB-Q ×6 (10:01→17:22)
[2025-10-09] MEDS: FUROSEMIDE 20 MG TABLET PO (10:04)
[2025-10-09] MEDS: DOCUSATE SODIUM 100 MG CAPSULE PO ×2 (10:04→16:23)
[2025-10-09] MEDS: CEPHALEXIN 500 MG CAPSULE PO ×2 (10:04→20:22)
[2025-10-09] MEDS: guaiFENesin 12 HR 600 MG TABCR 1200 MG PO ×2 (10:04→20:22)
[2025-10-09] MEDS: DULoxetine HCL 60 MG CAPSULE.DR PO (10:04)
[2025-10-09] MEDS: LEFLUNOMIDE 20 MG TABLET PO (10:05)
[2025-10-09] MEDS: PANTOPRAZOLE 40 MG TABLET PO ×2 (10:05→20:18)
[2025-10-09] MEDS: APIXABAN 5 MG TABLET PO ×2 (10:05→20:18)
--- NOTE | 2025-10-09 13:42 | PCRCNOTE ---
HOME O2 EVAL COMPLETE. NO CHANGE IN HOME O2 NEEDS. RN NOTIFIED
[2025-10-09] MEDS: INSULIN GLARGINE (*BKC) 100 UNITS/ML 10 UNITS SUB-Q (20:17)
[2025-10-09] MEDS: LORATADINE 10 MG TABLET PO (20:18)
[2025-10-09] MEDS: PRAVASTATIN SODIUM 20 MG TABLET 40 MG PO (20:18)
[2025-10-10 03:00] VITALS: PULSE 78; RESP 17; TEMP 36.3; O2SAT 95
[2025-10-10 05:28] LABS: Hematocrit 29.2 % (37.0-47.0); Hemoglobin 9.2 g/dL (12.0-15.0); Immature Granulocyte Percent A 2.1 % (0-0.5); Lymphocytes Absolute Auto 0.78 K/mm3 (0.9-3.2); Mean Corpuscular HGB Conc 31.5 g/dl (32-36); Mean Corpuscular Hemoglobin 30.5 pg (26-34); Mean Corpuscular Volume 96.7 fl (80-100); Nucleated Red Blood Cells Absolute Auto 0.040 K/mm3 (0.0-0.012); Nucleated Red Blood Cells Perc 0.3 % (0.0-0.2); Platelet Count Result 260 k/mm3 (150-375); Red Blood Count 3.02 M/mm3 (4.2-5.4); White Blood Count 12.2 K/mm3 (4.5-10.0)
[2025-10-10 05:34] LABS: Anion Gap 2 mmol/L (4-12); Blood Urea Nitrogen 44 mg/dL (7-17); Calcium 8.5 mg/dL (8.4-10.2); Carbon Dioxide 25 mmol/L (22-30); Chloride 108 mmol/L (98-107); Estimated CRCL calculation 26 ml/min; Estimated Glomerular Filt Rate 36; Glucose 209 mg/dL (65-110); Potassium 4.2 mmol/L (3.4-5.0); Sodium 135 mmol/L (137-145)
[2025-10-10] MEDS: SALINE 0.65% NAS SOLN 44 ML BTL 1 SPRAY NASAL ×4 (07:00→23:43)
--- NOTE | 2025-10-10 07:04 | P.PNIM_ITS ---
Assessment and Plan Assessment and Plan (1) COVID-19: Code(s): U07.1 - COVID-19 Status: Acute Assessment and Plan: -Improving -Status post 5 days of remdesivir -Epistaxis has improved -Continue with scheduled nasal saline -Status post afrin, -Humidified oxygen when needed -Continue with DuoNebs - per [facility] - needs 4L NC at night. Continue 3L NC during the day. -pulmonology following - planning to continue Decadron x 10 days. (2) Acute respiratory failure with hypoxia: Code(s): J96.01 - Acute respiratory failure with hypoxia Status: Acute Assessment and Plan: - required up to 7L HFNC - in setting of COVID and PE -now on baseline oxygen requirement (3) Acute kidney injury superimposed on CKD: Code(s): N17.9 - Acute kidney failure, unspecified; N18.9 - Chronic kidney disease, unsp ecified Status: Acute Assessment and Plan: - Cr peaked at 2.11, baseline around 1.5 - renal US unremarkable - Cr overall improved -Monitor kidney function -Avoid nephrotoxins (4) Pulmonary embolism of right lower lobe: Code(s): I26.99 - Other pulmonary embolism without acute cor pulmonale Status: Acute Assessment and Plan: -Echo reviewed - EF >70%, G1DD, severe pulmonary hypertension, RV systolic function decreased - similar to prior -DVT study in bilateral leg is negative -oncology following - Patient has been changed to Amanda again due to small clot burden (5) Elevated troponin: Code(s): R79.89 - Other specified abnormal findings of blood chemistry Status: Acute Assessment and Plan: - troponin I 0.420, 0.379 - likely due to PE, TARIQ - EKG no acute ischemic changes (6) Diabetes: Code(s): E11.9 - Type 2 diabetes mellitus without complications Status: Chronic Assessment and Plan: - last HgbA1c - 6.5 10/04 - hold home PO meds - BG elevated in setting of Decadron. - POCT glucose qACHS - hypoglycemia management protocol (7) CHF (congestive heart failure): Code(s): I50.9 - Heart failure, unspecified Status: Acute Assessment and Plan: - in setting of pulmonary hypertension - Echo reviewed - EF >70%, G1DD, severe pulmonary hypertension, RV systolic function decreased - similar to prior - continue PO Lasix, Adempas (8) Hypertension: Code(s): I10 - Essential (primary) hypertension Status: Acute Assessment and Plan: - BP stable - continue home meds (9) Urinary tract infection: Code(s): N39.0 - Urinary tract infection, site not specified Status: Acute Assessment and Plan: -Status post ceftriaxone, completed the course Plan Code status: full code DVT prophylaxis: Amanda Dispo: SNF, awaiting placement Medical Record Review I have reviewed the following patient records and this information was taken into consideration when formulating the assessment and plan.: previous labs Subjective Date/time seen: 10/10/25 07:04 Interval history: Patient seen and examined up in chair. Denied acute complaints. Breathing stable. Review of Systems Review of Systems: All systems reviewed & are unremarkable except as noted in HPI and below Exam Narrative: General: NAD, chronically ill-appearing Eyes: EOMI ENT: neck supple Cardiovascular: Regular rate and rhythm Respiratory: Clear to auscultation, respirations even and unlabored on RA Gastrointestinal: Soft, non tender Genitourinary: no suprapubic tenderness Musculoskeletal: No edema Skin: warm, dry Neuro: Alert. Psych: Mood appropriate Objective Data Vital Signs Vital Signs: Vital Signs - 24 hr 10/09/25 08:00 10/09/25 10:30 10/09/25 10:35 Temperature Pulse Rate 80 90 91 Respiratory Rate 20 Blood Pressure Pulse Oximetry 94 86 L 87 L Oxygen Delivery Nasal Cannula Room Air Nasal Cannula Oxygen Flow Rate 2 1 Fraction of Inspired Oxygen 35 10/09/25 10:40 10/09/25 10:45 10/09/25 11:00 Temperature Pulse Rate 91 90 93 Respiratory Rate Blood Pressure Pulse Oximetry 88 L 92 91 Oxygen Delivery Nasal Cannula Nasal Cannula Nasal Cannula Oxygen Flow Rate 2 3 3 Fraction of Inspired Oxygen 10/09/25 14:29 10/09/25 20:00 10/09/25 20:17 Temperature 96.7 F L Pulse Rate 96 Respiratory Rate 18 Blood Pressure 138/76 Pulse Oximetry 99 93 93 Oxygen Delivery Nasal Cannula Nasal Cannula Oxygen Flow Rate 3 2 Fraction of Inspired Oxygen 10/10/25 03:00 Temperature 97.4 F L Pulse Rate 78 Respiratory Rate 17 Blood Pressure Pulse Oximetry 95 Oxygen Delivery Oxygen Flow Rate Fraction of Inspired Oxygen Intake/Output Intake/Output: Intake & Output 10/07/25 10/08/25 10/09/25 10/10/25 23:59 23:59 23:59 23:59 Intake Total 1130 1560 1360 Output Total 1700 1400 200 Balance -200 073 6961 Meds/Results Medications: Active Medications Generic Name Dose Route Start Last Admin Trade Name Freq PRN Reason Stop Dose Admin Acetaminophen 650 mg 10/01/25 15:50 10/04/25 21:45 Acetaminophen 325 Mg Tablet PO 650 mg Q4H PRN Administration Mild Pain (1-3) or Fever Albuterol/Ipratropium 3 ml 10/05/25 15:11 Ipratropium 0.5 Mg/Albuterol Sulfate 2.5 Mg (Base) Ampul.Neb 3 Ml INHALATION Q6HRT PRN Dyspnea Apixaban 5 mg 10/02/25 21:00 10/09/25 20:18 Apixaban 5 Mg Tablet PO 5 mg Q12HR ANAHI Administration Buspirone HCl 30 mg 10/02/25 09:00 10/09/25 16:23 Buspirone Hcl 10 Mg Tablet PO 30 mg BID ANAHI Administration Cephalexin HCl 500 mg 10/07/25 21:00 10/09/25 20:22 Cephalexin 500 Mg Capsule PO 10/12/25 21:01 500 mg Q12HR ANAHI Administration Dexamethasone 6 mg 10/02/25 08:00 10/09/25 10:03 Dexamethasone 2 Mg Tablet PO 10/11/25 08:01 6 mg DAILY@0800 ANAHI Administration Dextrose 12.5 gm 10/01/25 16:13 Dextrose 50% 25 Gm/50 Ml Syringe IV PUSH PRN PRN Hypoglycemia Protocol Docosanol 1 applic 10/01/25 21:00 10/09/25 21:38 Docosanol 10% Cream 2 Gm TOPICAL Not Given 5 TIMES DAILY ANAHI Docusate Sodium 100 mg 10/01/25 17:00 10/09/25 16:23 Docusate Sodium 100 Mg Capsule PO 100 mg BID ANAHI Administration Duloxetine HCl 60 mg 10/02/25 09:00 10/09/25 10:04 Duloxetine Hcl 60 Mg Capsule.Dr PO 60 mg DAILY ANAIH Administration Ferrous Sulfate 325 mg 10/02/25 09:00 10/08/25 09:04 Ferrous Sulfate 325 Mg Tablet PO 325 mg Q48H ANAHI Administration Furosemide 20 mg 10/03/25 09:00 10/09/25 10:04 Furosemide 20 Mg Tablet PO 20 mg DAILY ANAHI Administration Glucagon 1 mg 10/01/25 16:13 Glucagon For Inj 1 Mg Vial IM PRN PRN Hypoglycemia Protocol Glucose 15 gm 10/01/25 16:13 Glucose Oral Gel 15 Gm Of Glucse In 37.5 Gm Tube PO PRN PRN Hypoglycemia Protocol Guaifenesin 1,200 mg 10/01/25 21:00 10/09/25 20:22 Guaifenesin 12 Hr 600 Mg Tabcr PO 1,200 mg Q12HR ANAHI Administration Hydroxyzine HCl 10 mg 10/01/25 19:50 10/09/25 16:24 Hydroxyzine Hcl 10 Mg Tablet PO 10 mg TID PRN Administration Anxiety Dextrose 1,000 mls @ 100 mls/hr 10/01/25 16:13 Dextrose 5% 1,000 Ml IVPB PRN PRN Hypoglycemia Protocol Insulin Aspart 2 units 10/08/25 12:00 10/09/25 17:21 Insulin Aspart (*Bkc) 100 Units/Ml SUB-Q 2 units TIDWM ANAHI Administration Insulin Aspart 3 - 6 units 10/09/25 17:00 10/09/25 17:22 Insulin Aspart (*Bkc) 100 Units/Ml SUB-Q 6 units TIDWM ANAHI Administration Protocol Insulin Glargine 10 units 10/09/25 21:00 10/09/25 20:17 Insulin Glargine (*Bkc) 100 Units/Ml SUB-Q 10 units HS ANAHI Administration Leflunomide 20 mg 10/02/25 09:00 10/09/25 10:05 Leflunomide 20 Mg Tablet PO 20 mg DAILY ANAHI Administration Lidocaine 1 patch 10/01/25 21:30 Lidocaine 5% Patch TRANSDERM DAILY PRN pain Loratadine 10 mg 10/01/25 21:00 10/09/25 20:18 Loratadine 10 Mg Tablet PO 10 mg HS ANAHI Administration Home Med ( 2.5 mg 10/01/25 22:00 10/10/25 07:01 Riociguat [Adempas] PO 10/31/25 21:59 Not Given 2.5 Mg Tablet) Q8HR AANHI Ondansetron HCl 4 mg 10/01/25 15:50 Ondansetron Inj 4 Mg/2 Ml Vial IV PUSH Q4H PRN Nausea Oxycodone HCl 5 mg 10/01/25 16:11 10/08/25 21:56 Oxycodone Hcl (*Crx) 5 Mg Tab Ir PO 5 mg Q4H PRN Administration Pain Rated 7-10 Pantoprazole Sodium 40 mg 10/01/25 21:30 10/09/25 20:18 Pantoprazole 40 Mg Tablet PO 40 mg Q12HR ANAHI Administration Polyethylene Glycol 17 gm 10/03/25 23:13 10/09/25 13:58 Polyethylene Glycol 3350 17 Gm Powd.Pack PO 17 gm QAM PRN Administration Constipation Pravastatin Sodium 40 mg 10/01/25 21:00 10/09/25 20:18 Pravastatin Sodium 20 Mg Tablet PO 40 mg HS ANAHI Administration Senna 8.6 mg 10/01/25 19:50 10/06/25 10:03 Sennosides 8.6 Mg Tablet PO 8.6 mg BID PRN Administration Constipation Sodium Chloride 1 spray 10/03/25 12:00 10/10/25 07:00 Saline 0.65% Julio Soln 44 Ml Btl NASAL 1 spray Q6HR ANAHI Administration Sodium Chloride 1 applic 10/03/25 23:12 10/09/25 05:02 Sodium Chloride Nasal Gel 14.1 Gm NASAL 1 applic QID PRN Administration Nasal Congestion Trazodone HCl 100 mg 10/01/25 21:00 10/09/25 20:18 Trazodone Hcl 50 Mg Tablet PO 100 mg HS ANAHI Administration Valacyclovir HCl 500 mg 10/01/25 21:00 10/09/25 20:18 Valacyclovir Hcl 500 Mg Tablet PO 500 mg HS ANAHI Administration Radiology Results: ITS Impressions Chest CTA 10/01/25 15:20 IMPRESSION: 1. Pulmonary embolism subsegmental pulmonary artery right lower lobe, small thrombus burden. 2: Patchy faint groundglass opacities. Differential diagnosis includes pneumonia, early mild edema, hypersensitivity pneumonitis and nonspecific interstitial pneumonia. Venous Doppler Study 10/03/25 11:57 IMPRESSION: 1. No DVT either leg. Retroperitoneum Ultrasound 10/04/25 10:21 IMPRESSION: 1. 1.3 similar right renal cyst. Otherwise normal kidneys without hydronephrosis. Chest X-Ray 10/08/25 11:23 Impression: Mild CHF Labs Labs: Laboratory Results - last 24 hr 10/09/25 10/09/25 10/09/25 09:53 11:31 16:42 WBC RBC Hgb Hct MCV MCH MCHC RDW Plt Count MPV Immature Gran % (Auto) Neut % (Auto) Lymph % (Auto) [place] % (Auto) Eos % (Auto) Baso % (Auto) Lymph # (Auto) [place] # (Auto) Eos # (Auto) Baso # (Auto) Abs Immat Gran (auto) Absolute Neuts (auto) Absolute Nucleated RBC Nucleated RBC % Sodium Potassium Chloride Carbon Dioxide Anion Gap BUN Creatinine Estim Creat Clear Calc Estimated GFR Glucose POC Capillary Glucose 252 H 289 H 405 H Calcium 10/09/25 10/10/25 20:12 04:44 WBC 12.2 H RBC 3.02 L Hgb 9.2 L Hct 29.2 L MCV 96.7 MCH 30.5 MCHC 31.5 L RDW 17.0 H Plt Count 260 MPV 10.3 Immature Gran % (Auto) 2.1 H Neut % (Auto) 83.3 H Lymph % (Auto) 6.4 L [place] % (Auto) 7.5 Eos % (Auto) 0.5 Baso % (Auto) 0.2 Lymph # (Auto) 0.78 L [place] # (Auto) 0.9 H Eos # (Auto) 0.1 Baso # (Auto) 0.0 Abs Immat Gran (auto) 0.26 H Absolute Neuts (auto) 10.1 H Absolute Nucleated RBC 0.040 H Nucleated RBC % 0.3 H Sodium 135 L Potassium 4.2 Chloride 108 H Carbon Dioxide 25 Anion Gap 2 L BUN 44 H Creatinine 1.40 H Estim Creat Clear Calc 26 Estimated GFR 36 L Glucose 209 H POC Capillary Glucose 333 H Calcium 8.5 Quality VTE Prophylaxis VTE prophylaxis: pharmacologic ordered
[2025-10-10 08:00] VITALS: O2SAT 96
[2025-10-10] MEDS: DOCUSATE SODIUM 100 MG CAPSULE PO ×2 (09:19→16:28)
[2025-10-10] MEDS: FUROSEMIDE 20 MG TABLET PO (09:19)
[2025-10-10] MEDS: APIXABAN 5 MG TABLET PO ×2 (09:19→20:03)
[2025-10-10] MEDS: FERROUS SULFATE 325 MG TABLET PO (09:20)
[2025-10-10] MEDS: LEFLUNOMIDE 20 MG TABLET PO (09:20)
[2025-10-10] MEDS: guaiFENesin 12 HR 600 MG TABCR 1200 MG PO ×2 (09:21→20:02)
[2025-10-10] MEDS: DULoxetine HCL 60 MG CAPSULE.DR PO (09:21)
[2025-10-10] MEDS: PANTOPRAZOLE 40 MG TABLET PO ×2 (09:21→20:03)
[2025-10-10] MEDS: CEPHALEXIN 500 MG CAPSULE PO ×2 (09:22→20:02)
[2025-10-10] MEDS: SODIUM CHLORIDE NASAL GEL 14.1 GM 1 APPLIC NASAL (09:24)
[2025-10-10] MEDS: INSULIN ASPART (*BKC) 100 UNITS/ML SUB-Q ×5 (09:30→17:23)
[2025-10-10 14:05] VITALS: BP 139/68; PULSE 67; RESP 16; TEMP 36.3; O2SAT 96
[2025-10-10 20:00] VITALS: O2SAT 95
[2025-10-10] MEDS: LORATADINE 10 MG TABLET PO (20:02)
[2025-10-10] MEDS: PRAVASTATIN SODIUM 20 MG TABLET 40 MG PO (20:03)
[2025-10-10 21:06] VITALS: BP 135/56; PULSE 95; RESP 20; TEMP 36.6; O2SAT 95
[2025-10-10] MEDS: INSULIN GLARGINE (*BKC) 100 UNITS/ML 10 UNITS SUB-Q (21:07)
[2025-10-11 04:57] LABS: Hematocrit 28.3 % (37.0-47.0); Hemoglobin 9.1 g/dL (12.0-15.0); Immature Granulocyte Percent A 2.1 % (0-0.5); Lymphocytes Absolute Auto 0.84 K/mm3 (0.9-3.2); Mean Corpuscular HGB Conc 32.2 g/dl (32-36); Mean Corpuscular Hemoglobin 31.2 pg (26-34); Mean Corpuscular Volume 96.9 fl (80-100); Nucleated Red Blood Cells Absolute Auto 0.040 K/mm3 (0.0-0.012); Nucleated Red Blood Cells Perc 0.3 % (0.0-0.2); Platelet Count Result 257 k/mm3 (150-375); Red Blood Count 2.92 M/mm3 (4.2-5.4); White Blood Count 13.2 K/mm3 (4.5-10.0)
[2025-10-11 05:19] LABS: Anion Gap 2 mmol/L (4-12); Blood Urea Nitrogen 43 mg/dL (7-17); Calcium 8.4 mg/dL (8.4-10.2); Carbon Dioxide 26 mmol/L (22-30); Chloride 105 mmol/L (98-107); Estimated CRCL calculation 29 ml/min; Estimated Glomerular Filt Rate 42; Glucose 260 mg/dL (65-110); Potassium 4.2 mmol/L (3.4-5.0); Sodium 133 mmol/L (137-145)
[2025-10-11 06:06] VITALS: BP 131/60; PULSE 98; RESP 16; TEMP 36.3; O2SAT 97
[2025-10-11] MEDS: SALINE 0.65% NAS SOLN 44 ML BTL 1 SPRAY NASAL ×3 (06:06→18:07)
--- NOTE | 2025-10-11 07:04 | P.PNIM_ITS ---
Assessment and Plan Assessment and Plan (1) COVID-19: Code(s): U07.1 - COVID-19 Status: Acute Assessment and Plan: -Improving -Status post 5 days of remdesivir -Humidified oxygen when needed due to history of epistaxis -Continue with DuoNebs - per [facility] - needs 4L NC at night. Continue 3L NC during the day. -pulmonology following - planning to continue Decadron x 10 days. (2) Leukocytosis: Code(s): D72.829 - Elevated white blood cell count, unspecified Status: Acute Assessment and Plan: - WBC trended up to 13.2. Patient remains afebrile without signs of acute bacterial process. Suspect related to steroids. - Monitor. (3) Acute respiratory failure with hypoxia: Code(s): J96.01 - Acute respiratory failure with hypoxia Status: Acute Assessment and Plan: - required up to 7L HFNC - in setting of COVID and PE -now on baseline oxygen requirement (4) Acute kidney injury superimposed on CKD: Code(s): N17.9 - Acute kidney failure, unspecified; N18.9 - Chronic kidney disease, unspecified Status: Acute Assessment and Plan: - Cr peaked at 2.11, baseline around 1.5 - renal US unremarkable - Cr overall improved -Monitor kidney function -Avoid nephrotoxins (5) Pulmonary embolism of right lower lobe: Code(s): I26.99 - Other pulmonary embolism without acute cor pulmonale Status: Acute Assessment and Plan: -Echo reviewed - EF >70%, G1DD, severe pulmonary hypertension, RV systolic function decreased - similar to prior -DVT study in bilateral leg is negative -oncology following - Patient has been changed to Eliquis again due to small clot burden (6) Elevated troponin: Code(s): R79.89 - Other specified abnormal findings of blood chemistry Status: Acute Assessment and Plan: - troponin I 0.420, 0.379 - likely due to PE, TARIQ - EKG no acute ischemic changes (7) Diabetes: Code(s): E11.9 - Type 2 diabetes mellitus without complications Status: Chronic Assessment and Plan: - last HgbA1c - 6.5 12 - hold home metformin - BG elevated in setting of Decadron. - continue Lantus with scheduled Novolog TID WM and moderate dose SSI - POCT glucose qACHS - hypoglycemia management protocol (8) CHF (congestive heart failure): Code(s): I50.9 - Heart failure, unspecified Status: Acute Assessment and Plan: - in setting of pulmonary hypertension - Echo reviewed - EF >70%, G1DD, severe pulmonary hypertension, RV systolic function decreased - similar to prior - continue PO Lasix, Adempas (9) Hypertension: Code(s): I10 - Essential (primary) hypertension Status: Acute Assessment and Plan: - BP stable - continue home meds (10) Urinary tract infection: Code(s): N39.0 - Urinary tract infection, site not specified Status: Acute Assessment and Plan: -urine culture with Klebsiella pneumoniae sensitive to cephalosporins -transitioned to Keflex to complete 7-day course Plan Code status: full code DVT prophylaxis: Amanda Dispo: SNF, awaiting placement Medical Record Review I have reviewed the following patient records and this information was taken into consideration when formulating the assessment and plan.: previous labs Subjective Date/time seen: 10/11/25 07:04 Interval history: Patient seen and examined at bedside. Patient reports not feeling well and shortness of breath. Noted slightly worsening leukocytosis. Patient requires additional night in the hospital to monitor breathing and to continue to work on strength with plans to discharge to [place] in AM. Review of Systems Review of Systems: All systems reviewed & are unremarkable except as noted in HPI and below Exam Narrative: General: NAD, chronically ill-appearing Eyes: EOMI ENT: neck supple Cardiovascular: Regular rate and rhythm Respiratory: Clear to auscultation, mild tachypnea on 3L NC Gastrointestinal: Soft, non tender Genitourinary: no suprapubic tenderness Musculoskeletal: No edema Skin: warm, dry Neuro: Alert and oriented x3 Psych: Mood appropriate Objective Data Vital Signs Vital Signs: Vital Signs - 24 hr 10/10/25 08:00 10/10/25 14:05 10/10/25 20:00 Temperature 97.4 F L Pulse Rate 67 Respiratory Rate 16 Blood Pressure 139/68 Pulse Oximetry 96 96 95 Oxygen Delivery Nasal Cannula Nasal Cannula Oxygen Flow Rate 3 3 Fraction of Inspired Oxygen 35 10/10/25 21:06 10/11/25 06:06 Temperature 97.8 F 97.3 F L Pulse Rate 95 98 Respiratory Rate 20 16 Blood Pressure 135/56 L 131/60 Pulse Oximetry 95 97 Oxygen Delivery Oxygen Flow Rate Fraction of Inspired Oxygen Intake/Output Intake/Output: Intake & Output 10/08/25 10/09/25 10/10/25 10/11/25 23:59 23:59 23:59 23:59 Intake Total 1560 1360 1490 300 Output Total 1400 200 450 Balance 160 1160 1490 -150 Meds/Results Medications: Active Medications Generic Name Dose Route Start Last Admin Trade Name Freq PRN Reason Stop Dose Admin Acetaminophen 650 mg 10/01/25 15:50 10/04/25 21:45 Acetaminophen 325 Mg Tablet PO 650 mg Q4H PRN Administration Mild Pain (1-3) or Fever Albuterol/Ipratropium 3 ml 10/05/25 15:11 Ipratropium 0.5 Mg/Albuterol Sulfate 2.5 Mg (Base) Ampul.Neb 3 Ml INHALATION Q6HRT PRN Dyspnea Apixaban 5 mg 10/02/25 21:00 10/10/25 20:03 Apixaban 5 Mg Tablet PO 5 mg Q12HR ANAHI Administration Buspirone HCl 30 mg 10/02/25 09:00 10/10/25 16:28 Buspirone Hcl 10 Mg Tablet PO 30 mg BID ANAHI Administration Cephalexin HCl 500 mg 10/07/25 21:00 10/10/25 20:02 Cephalexin 500 Mg Capsule PO 10/12/25 21:01 500 mg Q12HR ANAHI Administration Dexamethasone 6 mg 10/02/25 08:00 10/10/25 09:18 Dexamethasone 2 Mg Tablet PO 10/11/25 08:01 6 mg DAILY@0800 ANAHI Administration Dextrose 12.5 gm 10/01/25 16:13 Dextrose 50% 25 Gm/50 Ml Syringe IV PUSH PRN PRN Hypoglycemia Protocol Docosanol 1 applic 10/01/25 21:00 10/10/25 20:13 Docosanol 10% Cream 2 Gm TOPICAL 1 applic 5 TIMES DAILY ANAHI Administration Docusate Sodium 100 mg 10/01/25 17:00 10/10/25 16:28 Docusate Sodium 100 Mg Capsule PO 100 mg BID ANAHI Administration Duloxetine HCl 60 mg 10/02/25 09:00 10/10/25 09:21 Duloxetine Hcl 60 Mg Capsule.Dr PO 60 mg DAILY ANAHI Administration Ferrous Sulfate 325 mg 10/02/25 09:00 10/10/25 09:20 Ferrous Sulfate 325 Mg Tablet PO 325 mg Q48H ANAHI Administration Furosemide 20 mg 10/03/25 09:00 10/10/25 09:19 Furosemide 20 Mg Tablet PO 20 mg DAILY ANAHI Administration Glucagon 1 mg 10/01/25 16:13 Glucagon For Inj 1 Mg Vial IM PRN PRN Hypoglycemia Protocol Glucose 15 gm 10/01/25 16:13 Glucose Oral Gel 15 Gm Of Glucse In 37.5 Gm Tube PO PRN PRN Hypoglycemia Protocol Guaifenesin 1,200 mg 10/01/25 21:00 10/10/25 20:02 Guaifenesin 12 Hr 600 Mg Tabcr PO 1,200 mg Q12HR ANAHI Administration Hydroxyzine HCl 10 mg 10/01/25 19:50 10/10/25 16:28 Hydroxyzine Hcl 10 Mg Tablet PO 10 mg TID PRN Administration Anxiety Dextrose 1,000 mls @ 100 mls/hr 10/01/25 16:13 Dextrose 5% 1,000 Ml IVPB PRN PRN Hypoglycemia Protocol Insulin Aspart 2 units 10/08/25 12:00 10/10/25 17:23 Insulin Aspart (*Bkc) 100 Units/Ml SUB-Q 2 units TIDWM ANAHI Administration Insulin Aspart 3 - 6 units 10/09/25 17:00 10/10/25 17:23 Insulin Aspart (*Bkc) 100 Units/Ml SUB-Q 4 units TIDWM ANAHI Administration Protocol Insulin Glargine 10 units 10/09/25 21:00 10/10/25 21:07 Insulin Glargine (*Bkc) 100 Units/Ml SUB-Q 10 units HS ANAHI Administration Leflunomide 20 mg 10/02/25 09:00 10/10/25 09:20 Leflunomide 20 Mg Tablet PO 20 mg DAILY ANAHI Administration Lidocaine 1 patch 10/01/25 21:30 Lidocaine 5% Patch TRANSDERM DAILY PRN pain Loratadine 10 mg 10/01/25 21:00 10/10/25 20:02 Loratadine 10 Mg Tablet PO 10 mg HS ANAHI Administration Home Med ( 2.5 mg 10/01/25 22:00 10/11/25 06:08 Riociguat [Adempas] PO 10/31/25 21:59 2.5 mg 2.5 Mg Tablet) Q8HR ANAHI Administration Ondansetron HCl 4 mg 10/01/25 15:50 Ondansetron Inj 4 Mg/2 Ml Vial IV PUSH Q4H PRN Nausea Oxycodone HCl 5 mg 10/01/25 16:11 10/08/25 21:56 Oxycodone Hcl (*Crx) 5 Mg Tab Ir PO 5 mg Q4H PRN Administration Pain Rated 7-10 Pantoprazole Sodium 40 mg 10/01/25 21:30 10/10/25 20:03 Pantoprazole 40 Mg Tablet PO 40 mg Q12HR ANAHI Administration Polyethylene Glycol 17 gm 10/03/25 23:13 10/09/25 13:58 Polyethylene Glycol 3350 17 Gm Powd.Pack PO 17 gm QAM PRN Administration Constipation Pravastatin Sodium 40 mg 10/01/25 21:00 10/10/25 20:03 Pravastatin Sodium 20 Mg Tablet PO 40 mg HS ANAHI Administration Senna 8.6 mg 10/01/25 19:50 10/06/25 10:03 Sennosides 8.6 Mg Tablet PO 8.6 mg BID PRN Administration Constipation Sodium Chloride 1 spray 10/03/25 12:00 10/11/25 06:06 Saline 0.65% Julio Soln 44 Ml Btl NASAL 1 spray Q6HR ANAHI Administration Sodium Chloride 1 applic 10/03/25 23:12 10/10/25 09:24 Sodium Chloride Nasal Gel 14.1 Gm NASAL 1 applic QID PRN Administration Nasal Congestion Trazodone HCl 100 mg 10/01/25 21:00 10/10/25 20:03 Trazodone Hcl 50 Mg Tablet PO 100 mg HS ANAHI Administration Valacyclovir HCl 500 mg 10/01/25 21:00 10/10/25 20:03 Valacyclovir Hcl 500 Mg Tablet PO 500 mg HS ANAHI Administration Radiology Results: ITS Impressions Chest CTA 10/01/25 15:20 IMPRESSION: 1. Pulmonary embolism subsegmental pulmonary artery right lower lobe, small thrombus burden. 2: Patchy faint groundglass opacities. Differential diagnosis includes pneumonia, early mild edema, hypersensitivity pneumonitis and nonspecific interstitial pneumonia. Venous Doppler Study 10/03/25 11:57 IMPRESSION: 1. No DVT either leg. Retroperitoneum Ultrasound 10/04/25 10:21 IMPRESSION: 1. 1.3 similar right renal cyst. Otherwise normal kidneys without hydronephrosis. Chest X-Ray 10/08/25 11:23 Impression: Mild CHF Labs Labs: Laboratory Results - last 24 hr 10/10/25 10/10/25 10/10/25 07:49 11:56 16:41 WBC RBC Hgb Hct MCV MCH MCHC RDW Plt Count MPV Immature Gran % (Auto) Neut % (Auto) Lymph % (Auto) [place] % (Auto) Eos % (Auto) Baso % (Auto) Lymph # (Auto) [place] # (Auto) Eos # (Auto) Baso # (Auto) Abs Immat Gran (auto) Absolute Neuts (auto) Absolute Nucleated RBC Nucleated RBC % Sodium Potassium Chloride Carbon Dioxide Anion Gap BUN Creatinine Estim Creat Clear Calc Estimated GFR Glucose POC Capillary Glucose 184 H 234 H 263 H Calcium 10/10/25 10/11/25 21:05 04:36 WBC 13.2 H RBC 2.92 L Hgb 9.1 L Hct 28.3 L MCV 96.9 MCH 31.2 MCHC 32.2 RDW 17.2 H Plt Count 257 MPV 9.9 Immature Gran % (Auto) 2.1 H Neut % (Auto) 83.3 H Lymph % (Auto) 6.4 L [place] % (Auto) 7.1 Eos % (Auto) 0.6 Baso % (Auto) 0.5 Lymph # (Auto) 0.84 L [place] # (Auto) 0.9 H Eos # (Auto) 0.1 Baso # (Auto) 0.1 Abs Immat Gran (auto) 0.27 H Absolute Neuts (auto) 11.0 H Absolute Nucleated RBC 0.040 H Nucleated RBC % 0.3 H Sodium 133 L Potassium 4.2 Chloride 105 Carbon Dioxide 26 Anion Gap 2 L BUN 43 H Creatinine 1.22 H Estim Creat Clear Calc 29 Estimated GFR 42 L Glucose 260 H POC Capillary Glucose 347 H Calcium 8.4 Quality VTE Prophylaxis VTE prophylaxis: pharmacologic ordered
[2025-10-11 08:00] VITALS: BP 125/63; PULSE 89; RESP 20; TEMP 36.5; O2SAT 97; O2SAT 98
[2025-10-11] MEDS: DOCUSATE SODIUM 100 MG CAPSULE PO ×2 (08:37→17:58)
[2025-10-11] MEDS: LEFLUNOMIDE 20 MG TABLET PO (08:38)
[2025-10-11] MEDS: guaiFENesin 12 HR 600 MG TABCR 1200 MG PO ×2 (08:38→20:23)
[2025-10-11] MEDS: DULoxetine HCL 60 MG CAPSULE.DR PO (08:39)
[2025-10-11] MEDS: CEPHALEXIN 500 MG CAPSULE PO ×2 (08:39→20:23)
[2025-10-11] MEDS: PANTOPRAZOLE 40 MG TABLET PO ×2 (08:40→20:23)
[2025-10-11] MEDS: FUROSEMIDE 20 MG TABLET PO (08:40)
[2025-10-11] MEDS: APIXABAN 5 MG TABLET PO ×2 (08:40→20:23)
[2025-10-11] MEDS: INSULIN ASPART (*BKC) 100 UNITS/ML SUB-Q ×6 (08:43→18:04)
[2025-10-11 13:24] VITALS: O2SAT 94
[2025-10-11 16:00] VITALS: BP 149/80; PULSE 100; RESP 20; TEMP 36.6; O2SAT 95
[2025-10-11 20:00] VITALS: O2SAT 98
[2025-10-11] MEDS: PRAVASTATIN SODIUM 20 MG TABLET 40 MG PO (20:22)
[2025-10-11] MEDS: LORATADINE 10 MG TABLET PO (20:22)
[2025-10-11 21:05] VITALS: BP 140/54; PULSE 97; RESP 20; TEMP 36.6; O2SAT 98
[2025-10-11] MEDS: INSULIN GLARGINE (*BKC) 100 UNITS/ML 12 UNITS SUB-Q (22:26)
[2025-10-12 05:09] VITALS: BP 154/89; PULSE 97; RESP 20; TEMP 36.3; O2SAT 98
[2025-10-12 05:59] LABS: Hematocrit 33.2 % (37.0-47.0); Hemoglobin 10.6 g/dL (12.0-15.0); Immature Granulocyte Percent A 1.6 % (0-0.5); Lymphocytes Absolute Auto 1.07 K/mm3 (0.9-3.2); Mean Corpuscular HGB Conc 31.9 g/dl (32-36); Mean Corpuscular Hemoglobin 31.0 pg (26-34); Mean Corpuscular Volume 97.1 fl (80-100); Nucleated Red Blood Cells Absolute Auto 0.050 K/mm3 (0.0-0.012); Nucleated Red Blood Cells Perc 0.3 % (0.0-0.2); Platelet Count Result 279 k/mm3 (150-375); Red Blood Count 3.42 M/mm3 (4.2-5.4); White Blood Count 15.3 K/mm3 (4.5-10.0)
[2025-10-12 06:22] LABS: Anion Gap 5 mmol/L (4-12); Blood Urea Nitrogen 46 mg/dL (7-17); Calcium 8.8 mg/dL (8.4-10.2); Carbon Dioxide 26 mmol/L (22-30); Chloride 104 mmol/L (98-107); Estimated CRCL calculation 27 ml/min; Estimated Glomerular Filt Rate 39; Glucose 204 mg/dL (65-110); Potassium 4.0 mmol/L (3.4-5.0); Sodium 135 mmol/L (137-145)
[2025-10-12 08:00] VITALS: BP 148/78; PULSE 97; RESP 18; RESP 19; TEMP 36.4; O2SAT 94; O2SAT 97
[2025-10-12] MEDS: INSULIN ASPART (*BKC) 100 UNITS/ML SUB-Q ×3 (09:43→16:41)
[2025-10-12 09:44] LABS: Procalcitonin 0.1 ng/mL
[2025-10-12] MEDS: FUROSEMIDE 20 MG TABLET PO (09:44)
[2025-10-12] MEDS: LEFLUNOMIDE 20 MG TABLET PO (09:44)
[2025-10-12] MEDS: FERROUS SULFATE 325 MG TABLET PO (09:44)
[2025-10-12] MEDS: CEPHALEXIN 500 MG CAPSULE PO ×2 (09:44→20:45)
[2025-10-12] MEDS: APIXABAN 5 MG TABLET PO ×2 (09:44→20:45)
[2025-10-12] MEDS: PANTOPRAZOLE 40 MG TABLET PO ×2 (09:44→20:46)
[2025-10-12] MEDS: DOCUSATE SODIUM 100 MG CAPSULE PO ×2 (09:44→16:38)
[2025-10-12] MEDS: guaiFENesin 12 HR 600 MG TABCR 1200 MG PO ×2 (09:45→20:45)
[2025-10-12] MEDS: DULoxetine HCL 60 MG CAPSULE.DR PO (09:45)
--- NOTE | 2025-10-12 09:59 | P.PNIM_ITS ---
Assessment and Plan Assessment and Plan (1) COVID-19: Code(s): U07.1 - COVID-19 Status: Acute Assessment and Plan: -Improving -Status post 5 days of remdesivir -Humidified oxygen when needed due to history of epistaxis -Continue with DuoNebs - per Apnea Link - needs 4L NC at night. Continue 3L NC during the day. -pulmonology following - planning to continue Decadron x 10 days. (2) Leukocytosis: Code(s): D72.829 - Elevated white blood cell count, unspecified Status: Acute Assessment and Plan: - WBC continues to trend up, 15 today. Suspect related to steroids. Patieent afebrile, procal 0.1. However patient reports cough productive of yellow sputum. Recheck CXR. - Monitor. (3) Acute respiratory failure with hypoxia: Code(s): J96.01 - Acute respiratory failure with hypoxia Status: Acute Assessment and Plan: - required up to 7L HFNC - in setting of COVID and PE -now on baseline oxygen requirement (4) Acute kidney injury superimposed on CKD: Code(s): N17.9 - Acute kidney failure, unspecified; N18.9 - Chronic kidney disease, un specified Status: Acute Assessment and Plan: - Cr peaked at 2.11, baseline around 1.5 - renal US unremarkable - Cr overall improved -Monitor kidney function -Avoid nephrotoxins (5) Pulmonary embolism of right lower lobe: Code(s): I26.99 - Other pulmonary embolism without acute cor pulmonale Status: Acute Assessment and Plan: -Echo reviewed - EF >70%, G1DD, severe pulmonary hypertension, RV systolic function decreased - similar to prior -DVT study in bilateral leg is negative -oncology following - Patient has been changed to Eliquis again due to small clot burden (6) Elevated troponin: Code(s): R79.89 - Other specified abnormal findings of blood chemistry Status: Acute Assessment and Plan: - troponin I 0.420, 0.379 - likely due to PE, TARIQ - EKG no acute ischemic changes (7) Diabetes: Code(s): E11.9 - Type 2 diabetes mellitus without complications Status: Chronic Assessment and Plan: - last HgbA1c - 6.5 12/ - hold home metformin - BG elevated in setting of Decadron. - continue Lantus with scheduled Novolog TID WM and moderate dose SSI - POCT glucose qACHS - hypoglycemia management protocol (8) CHF (congestive heart failure): Code(s): I50.9 - Heart failure, unspecified Status: Acute Assessment and Plan: - in setting of pulmonary hypertension - Echo reviewed - EF >70%, G1DD, severe pulmonary hypertension, RV systolic function decreased - similar to prior - continue PO Lasix, Adempas (9) Hypertension: Code(s): I10 - Essential (primary) hypertension Status: Acute Assessment and Plan: - BP stable - continue home meds (10) Urinary tract infection: Code(s): N39.0 - Urinary tract infection, site not specified Status: Acute Assessment and Plan: -urine culture with Klebsiella pneumoniae sensitive to cephalosporins -transitioned to Keflex to complete 7-day course Plan Code status: full code DVT prophylaxis: Amanda Garciao: back to [place], likely tomorrow Medical Record Review I have reviewed the following patient records and this information was taken into consideration when formulating the assessment and plan.: previous labs Subjective Date/time seen: 10/12/25 09:59 Interval history: Patient seen and examined at bedside. Patient reports mild SOB and cough productive of yellow sputum. WBC uptrending. Discussed check CXR and monitoring one more day in the hospital. Patient agreeable. Updated patient's son, shawn Urias robert the phone. Review of Systems Review of Systems: All systems reviewed & are unremarkable except as noted in HPI and below Exam Narrative: General: NAD, chronically ill-appearing Eyes: EOMI ENT: neck supple Cardiovascular: Regular rate and rhythm Respiratory: Clear to auscultation, mild tachypnea on 3L NC Gastrointestinal: Soft, non tender Genitourinary: no suprapubic tenderness Musculoskeletal: No edema Skin: warm, dry Neuro: Alert and oriented x3 Psych: Mood appropriate Objective Data Vital Signs Vital Signs: Vital Signs - 24 hr 10/11/25 13:24 10/11/25 16:00 10/11/25 20:00 Temperature 97.9 F Pulse Rate 100 Respiratory Rate 20 Blood Pressure 149/80 H Pulse Oximetry 94 95 98 Oxygen Delivery Nasal Cannula Nasal Cannula Oxygen Flow Rate 2 3 10/11/25 21:05 10/12/25 05:09 Temperature 97.8 F 97.3 F L Pulse Rate 97 97 Respiratory Rate 20 20 Blood Pressure 140/54 L 154/89 H Pulse Oximetry 98 98 Oxygen Delivery Oxygen Flow Rate Intake/Output Intake/Output: Intake & Output 10/09/25 10/10/25 10/11/25 10/12/25 23:59 23:59 23:59 23:59 Intake Total 1360 1490 957 300 Output Total 200 450 400 Balance 1160 1490 507 -100 Meds/Results Medications: Active Medications Generic Name Dose Route Start Last Admin Trade Name Freq PRN Reason Stop Dose Admin Acetaminophen 650 mg 10/01/25 15:50 10/04/25 21:45 Acetaminophen 325 Mg Tablet PO 650 mg Q4H PRN Administration Mild Pain (1-3) or Fever Albuterol/Ipratropium 3 ml 10/05/25 15:11 Ipratropium 0.5 Mg/Albuterol Sulfate 2.5 Mg (Base) Ampul.Neb 3 Ml INHALATION Q6HRT PRN Dyspnea Apixaban 5 mg 10/02/25 21:00 10/12/25 09:44 Apixaban 5 Mg Tablet PO 5 mg Q12HR ANAHI Administration Buspirone HCl 30 mg 10/02/25 09:00 10/12/25 09:44 Buspirone Hcl 10 Mg Tablet PO 30 mg BID ANAHI Administration Cephalexin HCl 500 mg 10/07/25 21:00 10/12/25 09:44 Cephalexin 500 Mg Capsule PO 10/12/25 21:01 500 mg Q12HR ANAHI Administration Dextrose 12.5 gm 10/01/25 16:13 Dextrose 50% 25 Gm/50 Ml Syringe IV PUSH PRN PRN Hypoglycemia Protocol Docosanol 1 applic 10/01/25 21:00 10/12/25 09:46 Docosanol 10% Cream 2 Gm TOPICAL 1 applic 5 TIMES DAILY ANAHI Administration Docusate Sodium 100 mg 10/01/25 17:00 10/12/25 09:44 Docusate Sodium 100 Mg Capsule PO 100 mg BID ANAHI Administration Duloxetine HCl 60 mg 10/02/25 09:00 10/12/25 09:45 Duloxetine Hcl 60 Mg Capsule.Dr PO 60 mg DAILY ANAHI Administration Ferrous Sulfate 325 mg 10/02/25 09:00 10/12/25 09:44 Ferrous Sulfate 325 Mg Tablet PO 325 mg Q48H ANAHI Administration Furosemide 20 mg 10/03/25 09:00 10/12/25 09:44 Furosemide 20 Mg Tablet PO 20 mg DAILY ANAHI Administration Glucagon 1 mg 10/01/25 16:13 Glucagon For Inj 1 Mg Vial IM PRN PRN Hypoglycemia Protocol Glucose 15 gm 10/01/25 16:13 Glucose Oral Gel 15 Gm Of Glucse In 37.5 Gm Tube PO PRN PRN Hypoglycemia Protocol Guaifenesin 1,200 mg 10/01/25 21:00 10/12/25 09:45 Guaifenesin 12 Hr 600 Mg Tabcr PO 1,200 mg Q12HR ANAHI Administration Hydroxyzine HCl 10 mg 10/01/25 19:50 10/11/25 13:49 Hydroxyzine Hcl 10 Mg Tablet PO 10 mg TID PRN Administration Anxiety Dextrose 1,000 mls @ 100 mls/hr 10/01/25 16:13 Dextrose 5% 1,000 Ml IVPB PRN PRN Hypoglycemia Protocol Insulin Aspart 3 - 6 units 10/09/25 17:00 12/13/25 09:42 Insulin Aspart (*Bkc) 100 Units/Ml SUB-Q Not Given TIDWM [facility] Protocol Insulin Aspart 4 units 10/11/25 08:00 10/12/25 09:43 Insulin Aspart (*Bkc) 100 Units/Ml SUB-Q 4 units TIDWM ANAHI Administration Insulin Aspart 1 - 3 units 10/12/25 21:00 Insulin Aspart (*Bkc) 100 Units/Ml SUB-Q HS [facility] Protocol Insulin Glargine 12 units 10/11/25 21:00 10/11/25 22:26 Insulin Glargine (*Bkc) 100 Units/Ml SUB-Q 12 units HS [facility] Administration Leflunomide 20 mg 10/02/25 09:00 10/12/25 09:44 Leflunomide 20 Mg Tablet PO 20 mg DAILY ANAHI Administration Lidocaine 1 patch 10/01/25 21:30 Lidocaine 5% Patch TRANSDERM DAILY PRN pain Loratadine 10 mg 10/01/25 21:00 10/11/25 20:22 Loratadine 10 Mg Tablet PO 10 mg HS ANAHI Administration Home Med ( 2.5 mg 10/01/25 22:00 10/12/25 05:42 Riociguat [Adempas] PO 10/31/25 21:59 2.5 mg 2.5 Mg Tablet) Q8HR ANAHI Administration Ondansetron HCl 4 mg 10/01/25 15:50 Ondansetron Inj 4 Mg/2 Ml Vial IV PUSH Q4H PRN Nausea Pantoprazole Sodium 40 mg 10/01/25 21:30 10/12/25 09:44 Pantoprazole 40 Mg Tablet PO 40 mg Q12HR ANAHI Administration Polyethylene Glycol 17 gm 10/03/25 23:13 10/11/25 12:53 Polyethylene Glycol 3350 17 Gm Powd.Pack PO 17 gm QAM PRN Administration Constipation Pravastatin Sodium 40 mg 10/01/25 21:00 10/11/25 20:22 Pravastatin Sodium 20 Mg Tablet PO 40 mg HS ANAHI Administration Senna 8.6 mg 10/01/25 19:50 10/06/25 10:03 Sennosides 8.6 Mg Tablet PO 8.6 mg BID PRN Administration Constipation Sodium Chloride 1 spray 10/03/25 12:00 10/12/25 05:43 Saline 0.65% Julio Soln 44 Ml Btl NASAL Not Given Q6HR ANAHI Sodium Chloride 1 applic 10/03/25 23:12 10/10/25 09:24 Sodium Chloride Nasal Gel 14.1 Gm NASAL 1 applic QID PRN Administration Nasal Congestion Trazodone HCl 100 mg 10/01/25 21:00 10/11/25 20:23 Trazodone Hcl 50 Mg Tablet PO 100 mg HS ANAHI Administration Valacyclovir HCl 500 mg 10/01/25 21:00 10/11/25 20:23 Valacyclovir Hcl 500 Mg Tablet PO 500 mg HS ANAHI Administration Radiology Results: ITS Impressions Chest CTA 10/01/25 15:20 IMPRESSION: 1. Pulmonary embolism subsegmental pulmonary artery right lower lobe, small thrombus burden. 2: Patchy faint groundglass opacities. Differential diagnosis includes pneumonia, early mild edema, hypersensitivity pneumonitis and nonspecific interstitial pneumonia. Venous Doppler Study 10/03/25 11:57 IMPRESSION: 1. No DVT either leg. Retroperitoneum Ultrasound 10/04/25 10:21 IMPRESSION: 1. 1.3 similar right renal cyst. Otherwise normal kidneys without hydronephrosis. Chest X-Ray 10/08/25 11:23 Impression: Mild CHF Labs Labs: Laboratory Results - last 24 hr 10/11/25 10/11/25 10/11/25 11:47 16:58 21:04 WBC RBC Hgb Hct MCV MCH MCHC RDW Plt Count MPV Immature Gran % (Auto) Neut % (Auto) Lymph % (Auto) [place] % (Auto) Eos % (Auto) Baso % (Auto) Lymph # (Auto) [place] # (Auto) Eos # (Auto) Baso # (Auto) Abs Immat Gran (auto) Absolute Neuts (auto) Absolute Nucleated RBC Nucleated RBC % Sodium Potassium Chloride Carbon Dioxide Anion Gap BUN Creatinine Estim Creat Clear Calc Estimated GFR Glucose POC Capillary Glucose 201 H 308 H 398 H Calcium Procalcitonin 10/12/25 10/12/25 05:09 08:22 WBC 15.3 H RBC 3.42 L Hgb 10.6 L Hct 33.2 L MCV 97.1 MCH 31.0 MCHC 31.9 L RDW 17.5 H Plt Count 279 MPV 9.6 Immature Gran % (Auto) 1.6 H Neut % (Auto) 83.0 H Lymph % (Auto) 7.0 L [place] % (Auto) 7.4 Eos % (Auto) 0.7 Baso % (Auto) 0.3 Lymph # (Auto) 1.07 [place] # (Auto) 1.1 H Eos # (Auto) 0.1 Baso # (Auto) 0.1 Abs Immat Gran (auto) 0.24 H Absolute Neuts (auto) 12.7 H Absolute Nucleated RBC 0.050 H Nucleated RBC % 0.3 H Sodium 135 L Potassium 4.0 Chloride 104 Carbon Dioxide 26 Anion Gap 5 BUN 46 H Creatinine 1.31 H Estim Creat Clear Calc 27 Estimated GFR 39 L Glucose 204 H POC Capillary Glucose 162 H Calcium 8.8 Procalcitonin 0.1 Quality VTE Prophylaxis VTE prophylaxis: pharmacologic ordered
[2025-10-12] MEDS: SODIUM CHLORIDE NASAL GEL 14.1 GM 1 APPLIC NASAL (13:52)
[2025-10-12] MEDS: SALINE 0.65% NAS SOLN 44 ML BTL 1 SPRAY NASAL ×2 (13:52→17:51)
[2025-10-12 16:00] VITALS: BP 119/55; PULSE 90; RESP 18; TEMP 36.4; O2SAT 98
[2025-10-12] MEDS: LIDOCAINE 5% PATCH 1 PATCH TRANSDERM (17:50)
[2025-10-12 20:00] VITALS: PULSE 96; RESP 18; O2SAT 96
[2025-10-12] MEDS: LORATADINE 10 MG TABLET PO (20:46)
[2025-10-12] MEDS: PRAVASTATIN SODIUM 20 MG TABLET 40 MG PO (20:46)
[2025-10-12] MEDS: INSULIN GLARGINE (*BKC) 100 UNITS/ML 12 UNITS SUB-Q (20:58)
[2025-10-12 21:09] VITALS: BP 126/61; PULSE 96; RESP 18; TEMP 36.4; O2SAT 96
[2025-10-13 04:58] LABS: Hematocrit 29.9 % (37.0-47.0); Hemoglobin 9.5 g/dL (12.0-15.0); Immature Granulocyte Percent A 1.3 % (0-0.5); Lymphocytes Absolute Auto 1.24 K/mm3 (0.9-3.2); Mean Corpuscular HGB Conc 31.8 g/dl (32-36); Mean Corpuscular Hemoglobin 30.7 pg (26-34); Mean Corpuscular Volume 96.8 fl (80-100); Nucleated Red Blood Cells Absolute Auto 0.050 K/mm3 (0.0-0.012); Nucleated Red Blood Cells Perc 0.4 % (0.0-0.2); Platelet Count Result 234 k/mm3 (150-375); Red Blood Count 3.09 M/mm3 (4.2-5.4); White Blood Count 12.9 K/mm3 (4.5-10.0)
[2025-10-13 05:19] LABS: Anion Gap 2 mmol/L (4-12); Blood Urea Nitrogen 50 mg/dL (7-17); Calcium 8.5 mg/dL (8.4-10.2); Carbon Dioxide 26 mmol/L (22-30); Chloride 108 mmol/L (98-107); Estimated CRCL calculation 24 ml/min; Estimated Glomerular Filt Rate 33; Glucose 87 mg/dL (65-110); Potassium 3.7 mmol/L (3.4-5.0); Sodium 136 mmol/L (137-145)
[2025-10-13] MEDS: SALINE 0.65% NAS SOLN 44 ML BTL 1 SPRAY NASAL ×2 (06:42→12:11)
[2025-10-13 06:48] VITALS: BP 119/59; PULSE 87; RESP 16; TEMP 36.2; O2SAT 97
[2025-10-13 08:00] VITALS: BP 120/62; PULSE 89; RESP 17; TEMP 36.4; O2SAT 97
[2025-10-13] MEDS: INSULIN ASPART (*BKC) 100 UNITS/ML SUB-Q ×2 (08:17→12:11)
[2025-10-13] MEDS: LEFLUNOMIDE 20 MG TABLET PO (08:19)
[2025-10-13] MEDS: PANTOPRAZOLE 40 MG TABLET PO (08:19)
[2025-10-13] MEDS: DOCUSATE SODIUM 100 MG CAPSULE PO (08:19)
[2025-10-13] MEDS: DULoxetine HCL 60 MG CAPSULE.DR PO (08:19)
[2025-10-13] MEDS: guaiFENesin 12 HR 600 MG TABCR 1200 MG PO (08:19)
[2025-10-13] MEDS: APIXABAN 5 MG TABLET PO (08:20)
[2025-10-13] MEDS: FUROSEMIDE 20 MG TABLET PO (08:20)
--- NOTE | 2025-10-13 09:57 | P.DS_ITS ---
DS: Admitting Diagnosis Discharge Date 10/13/25 Admitting Diagnosis - COVID-19 - respiratory failure DS: Discharge Diagnosis Discharge Diagnosis (1) COVID-19: Code(s): U07.1 - COVID-19 Status: Acute (2) Leukocytosis: Code(s): D72.829 - Elevated white blood cell count, unspecified Status: Acute (3) Acute respiratory failure with hypoxia: Code(s): J96.01 - Acute respiratory failure with hypoxia Status: Acute (4) Acute kidney injury superimposed on CKD: Code(s): N17.9 - Acute kidney failure, unspecified; N18.9 - Chronic kidney disease, unspecified Status: Acute (5) Pulmonary embolism of right lower lobe: Code(s): I26.99 - Other pulmonary embolism without acute cor pulmonale Status: Acute (6) Elevated troponin: Code(s): R79.89 - Other specified abnormal findings of blood chemistry Status: Acute (7) Diabetes: Code(s): E11.9 - Type 2 diabetes mellitus without complications Status: Chronic (8) CHF (congestive heart failure): Code(s): I50.9 - Heart failure, unspecified Status: Acute (9) Hypertension: Code(s): I10 - Essential (primary) hypertension Status: Acute (10) Urinary tract infection: Code(s): N39.0 - Urinary tract infection, site not specified Status: Acute DS: Summary Hospital Course Reason for hospitalization: - COVID-19 - respiratory failure Hospital Course: Ms. Sayra Glass, an 85-year-old female with a complex medical history including chronic hypoxic respiratory failure on home oxygen, pulmonary hypertension, congestive heart failure, chronic kidney disease, and prior pulmonary embolism, was admitted with acute hypoxia, productive cough with hemoptysis, and generalized weakness. She was found to be COVID-19 positive and imaging revealed a new subsegmental right lower lobe pulmonary embolism with patchy ground-glass opacities consistent with viral pneumonia. Her hospital course was complicated by acute kidney injury superimposed on CKD, normocytic anemia, mild thrombocytopenia, and transiently elevated troponin, likely secondary to hypoxia and PE. She was managed with remdesivir and a 10-day course of dexamethasone for COVID-19 pneumonia, therapeutic anticoagulation (initially heparin, transitioned to apixaban), and diuresis for volume management. Hematology was consulted due to concerns for new PE on Eliquis however preference will be to continue Eliquis as an outpatient since the thrombus burden is small and it might be resolving pulmonary embolism. She will follow-up with hematology as outpatient. Oxygen requirements peaked at 7 L/min but gradually improved to her baseline of 3 L/min by discharge, with overnight oximetry confirming adequate saturations on this regimen. She also developed a urinary tract infection, treated with ceftriaxone and transitioned to oral cephalexin. Her WBC trended up during steroid therapy but was improving at discharge, and she remained afebrile with no evidence of secondary bacterial pneumonia. Renal function returned to baseline, and her hemoglobin stabilized without transfusion. She participated in physical therapy and demonstrated gradual improvement in strength and endurance. At the time of discharge, she was stable on her home oxygen regimen, ambulating with assistance, and elected to return to her assisted living facility with plans for outpatient therapy. She was discharge in stable condition. She was advised to repeat a BMP in 5-7 days and follow up with her primary care provider. Status at Discharge Functional status at discharge: uses cane/walker Time Spent with Patient Time attestation: Total time spent providing and/or coordinating discharge services: Time spent: Greater than 30 minutes Exam Narrative: General: NAD, chronically ill-appearing Eyes: EOMI ENT: neck supple Cardiovascular: Regular rate and rhythm Respiratory: Clear to auscultation, respirations even and unlabored on RA Gastrointestinal: Soft, non tender Genitourinary: no suprapubic tenderness Musculoskeletal: No edema Skin: warm, dry Neuro: Alert and oriented x3 Psych: Mood appropriate DS: Data Data Completed and Pending Completed studies during hospitalization: ITS Impressions Chest X-Ray 10/01/25 14:06 Impression: No acute cardiopulmonary abnormality. Chest CTA 10/01/25 15:20 IMPRESSION: 1. Pulmonary embolism subsegmental pulmonary artery right lower lobe, small thrombus burden. 2: Patchy faint groundglass opacities. Differential diagnosis includes pneumonia, early mild edema, hypersensitivity pneumonitis and nonspecific in terstitial pneumonia. Venous Doppler Study 10/03/25 11:57 IMPRESSION: 1. No DVT either leg. Retroperitoneum Ultrasound 10/04/25 10:21 IMPRESSION: 1. 1.3 similar right renal cyst. Otherwise normal kidneys without hydronephrosis. Chest X-Ray 10/08/25 11:23 Impression: Mild CHF Chest X-Ray 10/12/25 11:29 IMPRESSION: 1. Tiny focal pneumonitis left lung. Labs on day of discharge: Labs from last 24 hours 10/13/25 10/13/25 10/12/25 08:20 04:39 20:50 WBC 12.9 H RBC 3.09 L Hgb 9.5 L Hct 29.9 L MCV 96.8 MCH 30.7 MCHC 31.8 L RDW 17.6 H Plt Count 234 MPV 9.3 Immature Gran % (Auto) 1.3 H Neut % (Auto) 77.8 H Lymph % (Auto) 9.6 L [place] % (Auto) 8.5 Eos % (Auto) 2.3 Baso % (Auto) 0.5 Lymph # (Auto) 1.24 [place] # (Auto) 1.1 H Eos # (Auto) 0.3 Baso # (Auto) 0.1 Abs Immat Gran (auto) 0.17 H Absolute Neuts (auto) 10.0 H Absolute Nucleated RBC 0.050 H Nucleated RBC % 0.4 H Sodium 136 L Potassium 3.7 Chloride 108 H Carbon Dioxide 26 Anion Gap 2 L BUN 50 H Creatinine 1.49 H Estim Creat Clear Calc 24 Estimated GFR 33 L Glucose 87 POC Capillary Glucose 96 191 H Calcium 8.5 10/12/25 10/12/25 17:08 12:06 WBC RBC Hgb Hct MCV MCH MCHC RDW Plt Count MPV Immature Gran % (Auto) Neut % (Auto) Lymph % (Auto) [place] % (Auto) Eos % (Auto) Baso % (Auto) Lymph # (Auto) [place] # (Auto) Eos # (Auto) Baso # (Auto) Abs Immat Gran (auto) Absolute Neuts (auto) Absolute Nucleated RBC Nucleated RBC % Sodium Potassium Chloride Carbon Dioxide Anion Gap BUN Creatinine Estim Creat Clear Calc Estimated GFR Glucose POC Capillary Glucose 217 H 178 H Calcium Discharge Plan Discharge Attending physician on discharge: Adeel Mejia Consulting providers: Elliot Gil; Carlos Vanessa; Marley Nuñez; Romina Smith Discharging Clinician: Romina Smith Anticipated Discharge Date/Time: 10/13/25 09:42 Patient Disposition: NH Correction/Asst Living Activity: as tolerated Diet: regular Discharge Instructions: Discharge Instructions: Respiratory Failure due to COVID-19 Medications: * Decadron (dexamethasone):?You have completed your course in the hospital. No further doses are needed at home. * You have completed antibiotics for a UTI. Your white blood cell count was improving on day of discharge. * Mucinex (guaifenesin):?Take as needed for congestion. Follow the dosing instructions on the package. * You can resume taking Lasix three times weekly as you were prior to being in the hospital. Oxygen: * Continue using your home oxygen at?3 liters per minute via nasal cannula?at all times unless otherwise instructed. * Make sure your oxygen supply is adequate and the equipment is functioning properly. * Do not adjust your oxygen flow rate without medical guidance. Activity: * Pace yourself and rest as needed. Gradually increase your activity as tolerated. * Avoid strenuous activity until cleared by your provider. Monitoring: * Monitor your oxygen saturation with a pulse oximeter if available. Keep your oxygen saturation above 90%. * Watch for increased shortness of breath, chest pain, confusion, or bluish lips/fingertips. * Have your lab work repeated in 5-7 days and follow-up in 1 week. When to Seek Immediate Medical Attention: * Severe shortness of breath or difficulty breathing * Chest pain or pressure * New or worsening confusion * Inability to stay awake * Bluish lips or face Other Instructions: * Stay well hydrated. * Use cough and cold medications only as directed. * Continue to isolate as recommended if you are still within the infectious period for COVID-19. * Follow up with your primary care provider or bodily injury adjuster as scheduled. Follow-Up: * Schedule a follow-up appointment within 1 week or sooner if symptoms worsen. * Bring your medication list and oxygen equipment to your appointment if possible. Contact Information: * If you have questions or concerns, contact your provider?s office. Summary:?You are being discharged after treatment for respiratory failure due to COVID-19. Continue your home oxygen at 3L via nasal cannula, take Mucinex as needed, and Claritin daily. Watch for any worsening symptoms and seek help if needed. Patient Instructions: Antibiotic Form, Heart Attack (GEN), Heart Failure (GEN), Pulmonary Edema (GEN), Heart Healthy Diet (GEN), How To Wash Your Hands (GEN), Droplet Precautions (GEN), Blood Thinners (GEN), COVID-19 and Chronic Health Conditions (GEN), Face Coverings (Masks) and COVID-19 (GEN), Social Distancing Guidelines for COVID-19 (GEN) Patient Language: [place] Stand Alone Forms: General Discharge Information Follow-up/Referrals: Carlos Vanessa MD [Physician, Hematology] - Call for Appointment Referral Note: follow-up in 1 month for blood clot Susandanielk,Scotty Salas MD [Primary Care Provider] - Call for Appointment Referral Note: follow-up in 5-7 days Discharge Medications: New guaifenesin [Mucus Relief ER] 600 mg Tablet Extended Release 12hr 1,200 mg PO Q12HR PRN (Reason: congestion) 30 Days Qty: 30 0RF docusate sodium 100 mg Capsule 100 mg PO BID PRN (Reason: constipation) 30 Days Qty: 60 0RF Continued lidocaine 4 % adhesive patch,medicated 1 patch topical DAILY PRN (Reason: pain) Qty: 10 0RF acetaminophen 500 mg capsule 1,000 mg PO Q6H PRN (Reason: pain) Qty: 30 0RF diclofenac sodium 1 % gel 2 g topical QID Qty: 50 0RF furosemide 20 mg tablet 20 mg PO .COMPLEX Rx Instructions: 20 mg orally mon, wed, fri; ferrous sulfate 325 mg (65 mg iron) tablet 325 mg PO .COMPLEX Rx Instructions: 325 mg orally every other day; cetirizine 10 mg tablet 10 mg PO HS sulfamethoxazole-trimethoprim 400-80 mg tablet 1 tablet PO HS valacyclovir 500 mg tablet 500 mg PO HS zolpidem 5 mg tablet 5 mg PO HS pantoprazole 40 mg tablet,delayed release (DR/EC) 40 mg PO Q12H buspirone 30 mg tablet 30 mg PO BID Adempas 2.5 mg tablet 2.5 mg PO TID menthol-zinc oxide [Calmoseptine] 0.44-20.6 % ointment 1 applic topical TID loperamide 2 mg capsule 2 mg PO Q6H PRN (Reason: loose stool) sennosides [senna] 8.6 mg tablet 8.6 mg PO BID PRN (Reason: constipation) hydroxyzine HCl 10 mg tablet 10 mg PO TID PRN (Reason: anxiety) Eliquis 2.5 mg Tablet 5 mg PO Q12HR metformin 500 mg tablet 500 mg PO DAILY@0800 pravastatin 40 mg tablet 40 mg PO HS leflunomide 20 mg tablet 20 mg PO DAILY trazodone 100 mg tablet 100 mg PO HS duloxetine 60 mg capsule,delayed release(DR/EC) 60 mg PO DAILY Discontinued clonazepam 0.5 mg tablet See Rx Instructions .ROUTE .COMPLEX Rx Instructions: 0.5mg tablet, take 2-3 tablets at hs for anxiety/sleep fexofenadine 180 mg Tablet 180 mg PO DAILY losartan 100 mg tablet 100 mg PO DAILY amlodipine [Norvasc] 5 mg Tablet 5 mg PO DAILY Qty: 60 0RF amoxicillin-pot clavulanate 875-125 mg tablet 1 tablet PO Q12H Qty: 6 0RF methocarbamol 750 mg tablet 750 mg PO TID Qty: 30 0RF oxycodone 5 mg capsule 5 mg PO Q8H PRN (Reason: pain) 5 Days Qty: 7 0RF Rx Instructions: Take 1/2 cap (2.5 mg) metoprolol succinate 25 mg tablet extended release 24 hr 25 mg PO HS nitrofurantoin monohyd/m-cryst [Macrobid] 100 mg capsule 100 mg PO Q12H 3 Days Qty: 6 0RF Rx Instructions: filled 07/24/24 Other Ambulatory Orders: OT Outpatient Eval and Treat (ONCE) Timeframe: 2 Weeks Location: Determined by Patient Ordered By: Romina Smith PT Outpatient Eval and Treat (ONCE) Timeframe: 2 Weeks Location: Determined by Patient Ordered By: Romina Smith Basic Metabolic Panel (Routine) Timeframe: 5 Days Location: Determined by Patient Ordered By: Romina Smith Date of admission: 10/01/25 17:49 Primary Care Provider: Joe,Scotty Salas Admitting Provider: Alek Rodriguez Oca Attending physician on admission: Alek Rodriguez Oca Condition: Stable
== END 2025-10-13 15:15 | DRG 177 ==
LOC: ANHED 15:50 → ANHIMU 17:23 → ANH2MED 10-05 18:30
PROVIDERS: Internal Medicine; Internal Medicine Hematology & Oncology; Nurse Practitioner Gerontology; Admitting Provider Student in an Organized Health Care Education/Training Program; Emergency Provider Student in an Organized Health Care Education/Training Program; PCP Internal Medicine; Visit Provider Physician Assistant
DX: U07.1 COVID-19 (principal); I26.99 Other pulmonary embolism without acute cor pulmonale; J12.82 Pneumonia due to coronavirus disease 2019; J96.21 Acute and chronic respiratory failure with hypoxia; N17.9 Acute kidney failure, unspecified; N39.0 Urinary tract infection, site not specified; R04.2 Hemoptysis; I13.10 Hypertensive heart and chronic kidney disease without heart failure, with stage 1 through stage 4 chronic kidney disease, or unspecified chronic kidney disease; N18.9 Chronic kidney disease, unspecified; I50.9 Heart failure, unspecified; D63.1 Anemia in chronic kidney disease; K12.0 Recurrent oral aphthae; M48.061 Spinal stenosis, lumbar region without neurogenic claudication; R04.0 Epistaxis; T38.0X5A Adverse effect of glucocorticoids and synthetic analogues, initial encounter; D72.829 Elevated white blood cell count, unspecified; K59.00 Constipation, unspecified; G47.00 Insomnia, unspecified; M51.369 Other intervertebral disc degeneration, lumbar region without mention of lumbar back pain or lower extremity pain; E11.22 Type 2 diabetes mellitus with diabetic chronic kidney disease; I27.21 Secondary pulmonary arterial hypertension; G47.33 Obstructive sleep apnea (adult) (pediatric); M94.0 Chondrocostal junction syndrome [Tietze]; F32.A Depression, unspecified; B96.1 Klebsiella pneumoniae [K. pneumoniae] as the cause of diseases classified elsewhere; M06.9 Rheumatoid arthritis, unspecified; D69.6 Thrombocytopenia, unspecified; Z77.22 Contact with and (suspected) exposure to environmental tobacco smoke (acute) (chronic); Z86.16 Personal history of COVID-19; Z79.01 Long term (current) use of anticoagulants; Z79.84 Long term (current) use of oral hypoglycemic drugs; Z99.81 Dependence on supplemental oxygen; Z79.2 Long term (current) use of antibiotics; Z79.891 Long term (current) use of opiate analgesic
CPT/HCPCS: 36415; 71045; 71046; 71275; 76770; 80048; 80053; 80076; 82248; 82274; 82607; 82728; 82746; 82948; 83036; 83540; 83550; 83735; 83880; 84145; 84484; 85014; 85018; 85025; 85027; 85380; 85610; 85730; 87086; 87186; 87637; 93005; 93306; 93970; 94618; 94640; 94762; 96361; 96374; 96375; 97110; 97161; 97166; 97530; 97535; 99285; A9270; G0378; J0248; J0696; J1100; J1644; J1815; J7040; J8540; Q9967